=== PATIENT | female | born 1970 | race Caucasian/White ===

== ENCOUNTER 2021-08-01 18:36 | Inpatient (IN) | payer MEDICARE, MEDICAID, SELFPAY ==
--- NOTE | ~2021-08-01 | XR_ITS ---
EXAMINATION: XR ANKLE, LEFT CLINICAL INFORMATION: Ankle pain COMPARISON: None TECHNIQUE: AP, lateral, and mortise views of the left ankle. FINDINGS: No fracture or dislocation. The ankle mortise is intact. There is soft tissue swelling around the lateral aspect of the ankle. Plantar calcaneal spur. Subcutaneous edema. XR/XR ankle LT 2V IMPRESSION: No fracture or dislocation. Soft tissue swelling around the lateral ankle. Subcutaneous edema.
--- NOTE | ~2021-08-01 | XR_ITS ---
EXAMINATION: XR ANKLE, LEFT CLINICAL INFORMATION: Pain COMPARISON: Previous x-ray 08/07/2021 TECHNIQUE: AP, lateral, and mortise views of the left ankle. FINDINGS: Bone alignment is normal. No acute fracture or dislocation is seen. There is slight cortical irregularity of the posterior distal fibular shaft seen on the lateral view questionable for changes related to old trauma. There is a small osteophyte or a tug lesion projecting off the posterior distal tibia seen on the lateral view. The ankle mortise is normal. There are calcaneal spurs. There is lateral soft tissue swelling. XR/XR ankle LT 2V IMPRESSION: No acute fracture or dislocation. Lateral soft tissue swelling.
--- NOTE | 2021-08-01 19:01 | ED.PSYCH ---
HPI - Psych General Chief Complaint: Psychiatric Symptoms Stated Complaint: SI/Crisis Time Seen by Provider: 08/01/21 19:00 Source: patient Mode of arrival: ambulatory Limitations: no limitations History of Present Illness HPI Narrative: 51-year-old female presents to emergency department for suicidal ideations and superficial cutting. States that she was evaluated at [facility] yesterday and was discharged. Feels that her medications are not effective. MD complaint: suicidal ideation and feels depressed Onset (ago): year(s) Duration: constant History of same: Yes Relieving factors: none Context: significant life stressor Associated psychiatric symptoms: depression, suicidal ideation and racing thoughts Associated symptoms: denies other symptoms Treatments prior to arrival: none If self harm: admits thoughts of self harm and self-inflicted trauma Related Data Home Medications Medication Instructions Recorded Confirmed albuterol sulfate 90 mcg/actuation 2 puff INHALATION Q6H PRN 08/01/21 08/01/21 aerosol inhaler ammonium lactate 12 % topical cream 1 appl TOPICAL DAILY 08/01/21 08/01/21 carbamazepine 200 mg 1 tab PO BID 08/01/21 08/01/21 tablet,extended release,12 hr carbamazepine 400 mg 1 tab PO BID 08/01/21 08/01/21 tablet,extended release,12 hr carboxymethylcellulose 0.5 1 drp OPHTHALMIC (EYE) QID PRN 08/01/21 08/01/21 %-glycerin 0.9 % eye drops (Refresh Optive) cetirizine 10 mg tablet 1 tab PO DAILY 08/01/21 08/01/21 clonazepam 0.5 mg tablet 1 tab PO BID PRN 08/01/21 08/01/21 clonidine HCl 0.1 mg tablet 1 tab PO TID 08/01/21 08/01/21 clonidine HCl 0.3 mg tablet 1 tab PO BEDTIME 08/01/21 08/01/21 famotidine 20 mg tablet 1 tab PO DAILY 08/01/21 08/01/21 fluticasone 100 mcg-salmeterol 50 1 puff INHALATION BID 08/01/21 08/01/21 mcg/dose blistr powdr for inhalation (Advair Diskus) gabapentin 400 mg capsule 1 cap PO TID 08/01/21 08/01/21 hydroxyzine pamoate 50 mg capsule 2 cap PO Q8H PRN 08/01/21 08/01/21 lactase 3,000 unit tablet (Lactaid) 3,000 unit PO QID PRN 08/01/21 08/01/21 metformin 500 mg tablet 1 tab PO BID 08/01/21 08/01/21 pantoprazole 40 mg tablet,delayed 1 tab PO BID 08/01/21 08/01/21 release piroxicam 10 mg capsule 1 cap PO DAILY 08/01/21 08/01/21 prazosin 2 mg capsule 2 cap PO BID 08/01/21 08/01/21 trazodone 100 mg tablet 2 tab PO BEDTIME 08/01/21 08/01/21 umeclidinium 62.5 mcg/actuation 1 inh INHALATION DAILY 08/01/21 08/01/21 blister powder for inhalation (Incruse Ellipta) Allergies Allergy/AdvReac Type Severity Reaction Status Date / Time Benzodiazepines Allergy Intermediate Irritable Verified 08/01/21 19:03 diazepam [From Valium] Allergy Intermediate Irritable Verified 08/01/21 19:02 sulfamethoxazole Allergy Intermediate Rash Verified 08/01/21 19:01 [From Bactrim] trimethoprim [From Bactrim] Allergy Intermediate Rash Verified 08/01/21 19:01 Review of Systems Review of Systems: Constitutional: No Fever, No Chills ENT/Mouth: No Ear Pain, No Nasal Congestion, No sore throat Eyes: No Eye Pain, No Swelling, No Redness Cardiovascular: No Chest Pain, No SOB Respiratory: No Cough, No Sputum, No Dyspnea Gastrointestinal: No Nausea, No Vomiting, No Diarrhea, No Hematochezia, No Melena Genitourinary: No Dysuria, No Urinary Frequency, No Hematuria Musculoskeletal: No Myalgias Skin: No Skin Lesions, No rash Neuro: No Weakness, No Numbness, No Paresthesias, No Dizziness, No Headache Psych: positive Anxiety, positive Depression, positive SI Heme/Lymph: No Lymphadenopathy Endocrine: No Polyuria, No Polydipsia Yes all other systems are reviewed and are negative [facility] Past Medical History Attestation statement: The following information was validated with the patient. Source: old records reviewed Social History Social History Advance Directives: No Advance Directives Information Provided: Yes Physical Exam Vital Signs: Vital Signs: Last Vital Signs Temp 98.2 F 08/01/21 22:10 Pulse 85 08/01/21 22:10 Resp 20 08/01/21 22:10 BP 139/81 08/01/21 22:10 Pulse Ox 96 08/01/21 22:10 BMI result Body Mass Index 45.8 Appearance: Alert. Oriented X3. No acute distress. Eyes: Pupils equal, round and reactive to light. Sclera nonicteric. EOMI. ENT: Pharynx normal. Moist mucous membranes. Neck: Normal inspection. Neck supple. CVS: Normal heart rate and rhythm. Pulses normal. Respiratory: No respiratory distress. Breath sounds normal. Abdomen: Soft and nontender. Obese. Skin: Multiple superficial abrasions with razor blade to the right forearm. Skin warm and dry. Normal skin color. Normal skin turgor. Extremities: Gait balance and coordinated with walker. Neuro: No motor deficit. No sensory deficit. Cranial nerves 2-12 intact Course Course Course Narrative: 51-year-old female presents to the emergency department for suicidal ideation. Patient is alert and oriented x4, wheezing and speaking and behaving in a cooperative manner. States that her medications are not working. Was discharged from [facility] yesterday, was treated for her superficial lacerations and abrasions to the right forearm that were self-inflicted with a razor blade. Tdap was updated yesterday. Patient has not presented to this facility there are no medical records at this facility for her. Will obtain records from [facility]. Labs, urinalysis COVID and crisis eval pending. Vaccinated with Pfizer x2 with booster. 9:07 p.m. labs are unremarkable. Medically cleared. Physician observation started at the time. MDM - Psych Differential Diagnosis Differential diagnosis: Likely suicidal ideation, bipolar disorder, depression and mood disorder Medical Records Attestation: I reviewed the patient's medical records. Lab Data Attestation: I reviewed the patient's lab results. Result diagrams: 08/01/21 19:39 08/01/21 19:39 Labs: Lab Results 08/01/21 08/01/21 08/01/21 Range/Units 19:05 19:05 19:05 WBC (4.8-10.8) X10*3/uL RBC (4.20-5.50) X10*6/uL Hgb (12.0-16.0) g/dl Hct (37.0-47.0) % MCV (80.0-98.0) fL MCH (27.0-33.0) pg MCHC (31.0-35.0) g/dl RDW (11.0-16.0) % Plt Count (160-400) X10*3/uL MPV (9.4-12.3) fL Immature Gran % (Auto) (0.0-0.4) % Neut % (Auto) (45-73) % Lymph % (Auto) (20-40) % [place] % (Auto) (2-11) % Eos % (Auto) (0-4) % Baso % (Auto) (0-2) % Lymph # (Auto) (1.2-4.9) X10*3/uL [place] # (Auto) (0.1-1.2) X10*3/uL Eos # (Auto) (0.0-0.4) X10*3/uL Baso # (Auto) (0.0-0.2) X10*3/uL Abs Immat Gran (auto) (0.00-0.03) X10*3/uL Absolute Neuts (auto) (2.0-8.3) x10*3/uL Absolute Nucleated RBC (0.0-0.012) X10*3/uL Nucleated RBC % (auto) (0.0-0.2) /100WBC Sodium (135-145) mmol/L Potassium (3.3-5.1) mmol/L Chloride (96-108) mmol/L Carbon Dioxide (22-29) mmol/L Anion Gap (12-20) BUN (9-16) mg/dL Creatinine (0.5-1.4) mg/dL Estim Creat Clear Calc Estimated GFR Random Glucose (60-115) mg/dL Calcium (8.4-10.2) mg/dL Total Bilirubin (0.0-1.0) mg/dL AST (5-31) U/L ALT (0-31) U/L Alkaline Phosphatase (39-117) U/L Total Protein (6.5-8.0) g/dL Albumin (3.5-5.0) g/dL Urine Color STRAW Urine Appearance CLEAR Urine pH 7.0 (5.0-8.0) Ur Specific [place] 1.020 (1.005-1.025) Urine Protein 1+ H (NEG-TRACE) MG/DL Urine Glucose (UA) NEG (NEG) MG/DL Urine Ketones NEG (NEG) MG/DL Urine Blood TRACE (NEG) Urine Nitrite NEG (NEG) Ur Leukocyte Esterase NEG (NEG) Urine RBC 0-2 (0) /HPF Urine WBC 1-4 (0-4) /HPF Ur Squamous Epith Cells 3+ /LPF Urine Bacteria 1+ /LPF Urine Mucus 1+ /LPF Salicylates (15-30) mg/dL Urine Opiates Screen Not Detected (Not Detect) Urine Fentanyl Screen Not Detected (Not Detect) Acetaminophen (<30) mcg/mL Ur Barbiturates Screen Not Detected (Not Detect) Ur Phencyclidine Scrn Not Detected (Not Detect) Ur Amphetamines Screen Not Detected (Not Detect) U Benzodiazepines Scrn Not Detected (Not Detect) Urine Cocaine Screen Not Detected (Not Detect) U Marijuana (THC) Screen Not Detected (Not Detect) Ethyl Alcohol mg/dL COVID-19 ([facility]) Negative (Negative) COVID-19 Clin Com See Note 08/01/21 08/01/21 08/01/21 Range/Units 19:39 19:39 19:39 WBC 10.9 H (4.8-10.8) X10*3/uL RBC 4.35 (4.20-5.50) X10*6/uL Hgb 10.7 L (12.0-16.0) g/dl Hct 35.5 L (37.0-47.0) % MCV 81.6 (80.0-98.0) fL MCH 24.6 L (27.0-33.0) pg MCHC 30.1 L (31.0-35.0) g/dl RDW 15.8 (11.0-16.0) % Plt Count 268 (160-400) X10*3/uL MPV 9.1 L (9.4-12.3) fL Immature Gran % (Auto) 1.1 H (0.0-0.4) % Neut % (Auto) 71.7 (45-73) % Lymph % (Auto) 17.5 L (20-40) % [place] % (Auto) 7.0 (2-11) % Eos % (Auto) 2.4 (0-4) % Baso % (Auto) 0.3 (0-2) % Lymph # (Auto) 1.9 (1.2-4.9) X10*3/uL [place] # (Auto) 0.8 (0.1-1.2) X10*3/uL Eos # (Auto) 0.3 (0.0-0.4) X10*3/uL Baso # (Auto) 0.0 (0.0-0.2) X10*3/uL Abs Immat Gran (auto) 0.12 H (0.00-0.03) X10*3/uL Absolute Neuts (auto) 7.9 (2.0-8.3) x10*3/uL Absolute Nucleated RBC 0.000 (0.0-0.012) X10*3/uL Nucleated RBC % (auto) 0.0 (0.0-0.2) /100WBC Sodium 138 (135-145) mmol/L Potassium 4.1 (3.3-5.1) mmol/L Chloride 104 (96-108) mmol/L Carbon Dioxide 28 (22-29) mmol/L Anion Gap 10 L (12-20) BUN 14 (9-16) mg/dL Creatinine 0.71 (0.5-1.4) mg/dL Estim Creat Clear Calc 113.1 Estimated GFR > 60 Random Glucose 132 H (60-115) mg/dL Calcium 9.5 (8.4-10.2) mg/dL Total Bilirubin 0.3 (0.0-1.0) mg/dL AST 20 (5-31) U/L ALT 22 (0-31) U/L Alkaline Phosphatase 126 H (39-117) U/L Total Protein 7.4 (6.5-8.0) g/dL Albumin 4.1 (3.5-5.0) g/dL Urine Color Urine Appearance Urine pH (5.0-8.0) Ur Specific [place] (1.005-1.025) Urine Protein (NEG-TRACE) MG/DL Urine Glucose (UA) (NEG) MG/DL Urine Ketones (NEG) MG/DL Urine Blood (NEG) Urine Nitrite (NEG) Ur Leukocyte Esterase (NEG) Urine RBC (0) /HPF Urine WBC (0-4) /HPF Ur Squamous Epith Cells /LPF Urine Bacteria /LPF Urine Mucus /LPF Salicylates < 5.0 L (15-30) mg/dL Urine Opiates Screen (Not Detect) Urine Fentanyl Screen (Not Detect) Acetaminophen < 1 (<30) mcg/mL Ur Barbiturates Screen (Not Detect) Ur Phencyclidine Scrn (Not Detect) Ur Amphetamines Screen (Not Detect) U Benzodiazepines Scrn (Not Detect) Urine Cocaine Screen (Not Detect) U Marijuana (THC) Screen (Not Detect) Ethyl Alcohol < 10 mg/dL COVID-19 ([facility]) (Negative) COVID-19 Clin Com Discharge Plan Discharge Clinical Impression: Suicidal ideation Bipolar disorder Qualifiers: Active/Remission status: currently active Current bipolar episode type: depressed Current episode severity: moderate Qualified Code(s): F31.32 - Bipolar disorder, current episode depressed, moderate Depression Qualifiers: Depression Type: major depressive disorder Major depression recurrence: recurrent Active/Remission status: currently active Major depression episode severity: moderate Qualified Code(s): F33.1 - Major depressive disorder, recurrent, moderate Patient Disposition: Still a Patient Prescriptions: No Action gabapentin 400 mg capsule 1 cap PO TID RF: 0 fluticasone propion-salmeterol [Advair Diskus] 100-50 mcg/dose blister with device 1 puff inhalation BID RF: 0 cetirizine 10 mg tablet 1 tab PO DAILY RF: 0 piroxicam 10 mg capsule 1 cap PO DAILY RF: 0 famotidine 20 mg tablet 1 tab PO DAILY RF: 0 clonazepam 0.5 mg tablet 1 tab PO BID PRN (Reason: Anxiety) RF: 0 clonidine HCl 0.1 mg tablet 1 tab PO TID RF: 0 prazosin 2 mg capsule 2 cap PO BID RF: 0 trazodone 100 mg tablet 2 tab PO BEDTIME RF: 0 hydroxyzine pamoate 50 mg capsule 2 cap PO Q8H PRN (Reason: Anxiety) RF: 0 metformin 500 mg tablet 1 tab PO BID RF: 0 pantoprazole 40 mg tablet,delayed release (DR/EC) 1 tab PO BID RF: 0 clonidine HCl 0.3 mg tablet 1 tab PO BEDTIME RF: 0 carbamazepine 400 mg tablet extended release 12 hr 1 tab PO BID RF: 0 carbamazepine 200 mg tablet extended release 12 hr 1 tab PO BID RF: 0 lactase [Lactaid] 3,000 unit Tablet 3,000 unit PO QID PRN (Reason: Lactose Intolerance) RF: 0 ammonium lactate 12 % Cream 1 appl TOPICAL DAILY RF: 0 albuterol sulfate 90 mcg/actuation Hfa Aerosol Inhaler 2 puff INHALATION Q6H PRN (Reason: Wheezing) RF: 0 Refresh Optive 0.5-0.9 % Drops 1 drp OPHTHALMIC (EYE) QID PRN (Reason: Dry Eye(S)) RF: 0 Incruse Ellipta 62.5 mcg/actuation Blister With Device 1 inh INHALATION DAILY RF: 0
[2021-08-01 19:04] VITALS: BP 155/81; PULSE 92; RESP 18; TEMP 36.7; O2SAT 97; BMI 45.8
[2021-08-01 19:25] LABS: COVID-19 Test Negative (Negative); IDNOW Serial# 9DD0AD1C
[2021-08-01 19:27] LABS: Amphetamine Screen Urine Not Detected (Not Detect); Barbiturates, Urine Not Detected (Not Detect); Benzodiazepines Screen Urine Not Detected (Not Detect); Cannabinoid Screen Urine Not Detected (Not Detect); Cocaine Screen Urine Not Detected (Not Detect); Fentanyl, urine Not Detected (Not Detect); Opiate Screen Urine Not Detected (Not Detect); Phencyclidine Screen Urine Not Detected (Not Detect)
[2021-08-01 19:45] LABS: Basophils Percent Auto 0.3 % (0-2); Eosinophils Absolute Auto 0.3 X10*3/uL (0.0-0.4); Eosinophils Percent Auto 2.4 % (0-4); Hematocrit 35.5 % (37.0-47.0); Hemoglobin 10.7 g/dl (12.0-16.0); Imm Gran Abs Auto 0.12 X10*3/uL (0.00-0.03); Imm Gran Pct Auto 1.1 % (0.0-0.4); Lymphocytes Absolute Auto 1.9 X10*3/uL (1.2-4.9); Lymphocytes Percent Auto 17.5 % (20-40); MANUAL DIFF FLAG NO; Mean Corpuscular HGB Conc 30.1 g/dl (31.0-35.0); Mean Corpuscular Hemoglobin 24.6 pg (27.0-33.0); Mean Corpuscular Volume 81.6 fL (80.0-98.0); Mean Platelet Volume 9.1 fL (9.4-12.3); Monocytes Absolute Auto 0.8 X10*3/uL (0.1-1.2); Neutrophils Absolute Auto 7.9 x10*3/uL (2.0-8.3); Neutrophils Percent Auto 71.7 % (45-73); Platelet Count 268 X10*3/uL (160-400); Red Blood Count 4.35 X10*6/uL (4.20-5.50); Red Cell Distribution Width 15.8 % (11.0-16.0); White Blood Count 10.9 X10*3/uL (4.8-10.8)
[2021-08-01 20:01] LABS: Ethanol < 10 mg/dL
[2021-08-01 20:05] LABS: Alanine Aminotransferase 22 U/L (0-31); Albumin Level 4.1 g/dL (3.5-5.0); Alkaline Phosphatase 126 U/L (39-117); Anion Gap 10 (12-20); Aspartate Amino Transferase 20 U/L (5-31); Bilirubin Total 0.3 mg/dL (0.0-1.0); Blood Urea Nitrogen 14 mg/dL (9-16); Calcium 9.5 mg/dL (8.4-10.2); Carbon Dioxide 28 mmol/L (22-29); Chloride 104 mmol/L (96-108); Creatinine Clr Calc Pharmacy 113.1; Estimated Glomerular Filt Rate > 60; Glucose Random 132 mg/dL (60-115); Potassium 4.1 mmol/L (3.3-5.1); Salicylate < 5.0 mg/dL (15-30); Sodium 138 mmol/L (135-145); Total Protein 7.4 g/dL (6.5-8.0)
[2021-08-01 20:08] LABS: Acetaminophen LAB < 1 mcg/mL (<30)
[2021-08-01 20:12] LABS: Appearance Urine CLEAR; Color Urine STRAW; Glucose Urine UA NEG (NEG); Leukocyte Esterase Urine NEG (NEG); Nitrite Urine NEG (NEG); UACC Culture Trigger NO; Urine Blood TRACE (NEG); Urine Ketones NEG (NEG); Urine Protein 1+ MG/DL (NEG-TRACE)
--- NOTE | 2021-08-01 20:17 | PHA.MEDREC ---
Pharmacy Consult ? Medication Reconciliation Pharmacy has completed the medication reconciliation. Pt seemed confused but did name off a lot of the medications that I pulled from her fill history on her own. No remarkable issues. Hortencia James [facility]
[2021-08-01 20:19] LABS: Bacteria Urine 1+ /LPF; Mucus Urine 1+ /LPF; Squamous Epithelial Cell Urine 3+ /LPF
[2021-08-01 20:20] LABS: RBC Urine 0-2 /HPF (0)
[2021-08-01] MEDS: Prazosin HCL 1 MG CAPSULE 4 MG PO (22:09)
[2021-08-01 22:10] VITALS: BP 139/81; PULSE 85; RESP 20; TEMP 36.8; O2SAT 96
[2021-08-01] MEDS: traZODone HCL 100 MG TABLET 200 MG PO (22:10)
[2021-08-01] MEDS: cloNIDine HCL 0.1 MG TABLET PO (22:10)
[2021-08-01] MEDS: carBAMazepine ER 200 MG TAB.ER.12H PO (22:10)
[2021-08-01] MEDS: metFORMIN HCl 500 MG TABLET PO (22:11)
[2021-08-01] MEDS: cloNIDine HCL 0.1 MG TABLET 0.3 MG PO (22:11)
[2021-08-01] MEDS: Gabapentin 400 MG CAPSULE PO (22:11)
[2021-08-02 00:17] VITALS: BP 103/67; PULSE 93; RESP 16; TEMP 36.2; O2SAT 95
[2021-08-02] MEDS: clonazePAM 0.5 MG TABLET PO (00:34)
--- NOTE | 2021-08-02 05:47 | PC.NURSE ---
Patient slept most part of the night, OOR few times for bathroom use and other need, no distress observed/reported, N referral completed/confirmed, patient will be evaluated in the morning, behavior cooperative and non concerning at this time, medication compliant, will continue to monitor.
[2021-08-02] MEDS: Omeprazole 20 MG CAPSULE.DR PO ×2 (06:13→16:19)
--- NOTE | 2021-08-02 07:21 | PC.NURSE ---
patient appears to remain asleep at present, respirations are even and unlabored patient appears in no distress
[2021-08-02 08:04] LABS: Glucose, Whole Blood 114 mg/dL (60-115)
[2021-08-02] MEDS: Famotidine 20 MG TABLET PO (08:50)
[2021-08-02] MEDS: metFORMIN HCl 500 MG TABLET PO ×2 (08:50→16:18)
[2021-08-02] MEDS: Loratadine 10 MG TABLET PO (08:50)
[2021-08-02] MEDS: cloNIDine HCL 0.1 MG TABLET PO ×2 (08:50→14:10)
[2021-08-02] MEDS: carBAMazepine ER 200 MG TAB.ER.12H 400 MG PO ×2 (08:51→23:45)
[2021-08-02] MEDS: carBAMazepine ER 200 MG TAB.ER.12H PO ×2 (08:51→23:44)
[2021-08-02] MEDS: Prazosin HCL 1 MG CAPSULE 4 MG PO ×2 (08:51→23:42)
[2021-08-02] MEDS: Gabapentin 400 MG CAPSULE PO ×3 (08:51→23:42)
--- NOTE | 2021-08-02 09:43 | HE.PHANOTE ---
Patient believes someone will be able to bring in Piroxicam and Incruse. Will start contacting people once it is determined if she is stay or going to be discharged per Reina. Yara Fernandez, PharmD
--- NOTE | 2021-08-02 12:18 | ECG_ITS ---
Test Reason : medical clearance Blood Pressure : / mmHG Vent. Rate : 072 BPM Atrial Rate : 072 BPM P-R Int : 184 ms QRS Dur : 082 ms QT Int : 428 ms P-R-T Axes : 019 -08 024 degrees QTc Int : 468 ms Normal sinus rhythm Possible Anterior infarct , age undetermined ; could be related to body habitus and lead placement Abnormal ECG No previous ECGs available Referred By: Soo López Electronically Signed By:MILAN GILES
[2021-08-02] MEDS: Calcium Carbonate 750 MG TAB.CHEW 1000 MG PO (12:40)
[2021-08-02 13:13] LABS: COVID-19 Test Negative (Negative); IDNOW Serial# 9DD0AD1C
[2021-08-02 14:07] VITALS: BP 148/88; PULSE 82; RESP 18; TEMP 36.4; O2SAT 96
[2021-08-02 15:37] VITALS: BP 109/85; PULSE 98; TEMP 36.4; O2SAT 99
[2021-08-02 21:25] VITALS: BP 139/91; PULSE 98; TEMP 36.5; O2SAT 97
[2021-08-02 23:30] VITALS: BP 128/91; PULSE 95; O2SAT 98
[2021-08-02] MEDS: traZODone HCL 100 MG TABLET 200 MG PO (23:42)
[2021-08-02] MEDS: cloNIDine HCL 0.1 MG TABLET 0.3 MG PO (23:43)
[2021-08-02] MEDS: traZODone HCL 50 MG TABLET PO (23:59)
[2021-08-02] MEDS: hydrOXYzine HCL 50 MG TABLET 100 MG PO (23:59)
[2021-08-03 00:20] LABS: Glucose, Whole Blood 100 mg/dL (60-115)
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
[2021-08-03] MEDS: Omeprazole 20 MG CAPSULE.DR PO ×2 (06:08→18:08)
[2021-08-03 08:00] VITALS: BP 130/67; PULSE 85; TEMP 36.8; O2SAT 95
[2021-08-03 08:12] LABS: Glucose, Whole Blood 105 mg/dL (60-115)
[2021-08-03] MEDS: Artificial Tears 15 ML DROPS 1 DROP EYE-BOTH (08:26)
[2021-08-03] MEDS: Fluticasone/Vilanterol 100/25 BLST.W.DEV 1 PUFF INHALE (08:26)
[2021-08-03] MEDS: Loratadine 10 MG TABLET PO (08:27)
[2021-08-03] MEDS: Gabapentin 400 MG CAPSULE PO ×2 (08:27→14:53)
[2021-08-03] MEDS: cloNIDine HCL 0.1 MG TABLET PO ×3 (08:27→20:56)
[2021-08-03] MEDS: carBAMazepine ER 200 MG TAB.ER.12H 400 MG PO (08:27)
[2021-08-03] MEDS: metFORMIN HCl 500 MG TABLET PO ×2 (08:27→18:08)
[2021-08-03] MEDS: hydrOXYzine HCL 50 MG TABLET 100 MG PO (08:27)
[2021-08-03] MEDS: carBAMazepine ER 200 MG TAB.ER.12H PO (08:27)
[2021-08-03] MEDS: Famotidine 20 MG TABLET PO (08:28)
[2021-08-03] MEDS: Prazosin HCL 1 MG CAPSULE 4 MG PO ×2 (09:50→20:54)
[2021-08-03] MEDS: Calcium Carbonate 750 MG TAB.CHEW PO (13:39)
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
[2021-08-03] MEDS: Magnesium Hydrox/Alum Hydrox 30 ML ORAL.SUSP PO (14:53)
[2021-08-03 16:01] LABS: Glucose, Whole Blood 109 mg/dL (60-115)
--- NOTE | 2021-08-03 16:04 | PC.NURSE ---
Pt reports feeling really out of it and shaky. Pt's extremities were visibly shaking and pt stated I just feel really nauseous. This RN assessed vitals: BP 124/87, HR 98 (automated and manually), RR 18, SpO2 98% room air, POC Blood glucose 109. Skin dry and warm to touch. Pt reports my anxiety is through the roof but she doesn't want to take any PRN medications because I don't think they're helping me, I don't want to put any more pills in my body right now. Pt requested to be evaluated by hospitalist. lRelayed info to Dr. Gallegos who is aware.
--- NOTE | 2021-08-03 17:24 | ECG_ITS ---
Test Reason : chest pain Blood Pressure : / mmHG Vent. Rate : 084 BPM Atrial Rate : 084 BPM P-R Int : 166 ms QRS Dur : 088 ms QT Int : 390 ms P-R-T Axes : 025 -15 036 degrees QTc Int : 460 ms Normal sinus rhythm Possible Anterior infarct , age undetermined Abnormal ECG No significant changes when compared with the previous EKG of 02 aug 2021 Referred By: Luke Gallegos Electronically Signed By:MILAN GILES
[2021-08-03 18:00] VITALS: BP 124/77; PULSE 101; TEMP 36.7; O2SAT 98
[2021-08-03] MEDS: clonazePAM 0.5 MG TABLET PO (18:08)
[2021-08-03] MEDS: Lactase TABLET 1 TAB PO (18:09)
[2021-08-03] MEDS: Bacitracin Oint 14 GM TUBE 1 APPL TOPICAL (20:54)
[2021-08-03] MEDS: carBAMazepine ER 200 MG TAB.ER.12H 800 MG PO (20:55)
[2021-08-03] MEDS: Gabapentin 300 MG CAPSULE 600 MG PO (20:55)
[2021-08-03] MEDS: traZODone HCL 100 MG TABLET 200 MG PO (20:55)
[2021-08-03] MEDS: Ibuprofen 200 MG TABLET PO (20:56)
[2021-08-03] MEDS: cloNIDine HCL 0.1 MG TABLET 0.3 MG PO (20:56)
[2021-08-03] MEDS: Clotrimazole 1 % Cream 15 GM TUBE 1 APPL TOPICAL (21:46)
[2021-08-04] MEDS: hydrOXYzine HCL 50 MG TABLET 100 MG PO ×2 (01:17→16:51)
[2021-08-04] MEDS: clonazePAM 0.5 MG TABLET PO (04:52)
[2021-08-04 08:28] VITALS: BP 123/79; PULSE 80; RESP 17; TEMP 36.2; O2SAT 96
[2021-08-04] MEDS: Omeprazole 20 MG CAPSULE.DR PO ×2 (08:35→16:50)
[2021-08-04] MEDS: cloNIDine HCL 0.1 MG TABLET PO ×2 (08:36→15:35)
[2021-08-04] MEDS: Cholecalciferol (Vitamin D3) 25 MCG TABLET PO (08:36)
[2021-08-04] MEDS: Loratadine 10 MG TABLET PO (08:36)
[2021-08-04] MEDS: Gabapentin 300 MG CAPSULE 600 MG PO ×3 (08:37→22:19)
[2021-08-04] MEDS: Famotidine 20 MG TABLET PO (08:37)
[2021-08-04] MEDS: carBAMazepine ER 200 MG TAB.ER.12H 600 MG PO (08:37)
[2021-08-04] MEDS: Prazosin HCL 1 MG CAPSULE 4 MG PO ×2 (08:38→22:20)
[2021-08-04] MEDS: Multivitamin TABLET 1 TAB PO (08:39)
[2021-08-04] MEDS: Ibuprofen 200 MG TABLET PO (08:39)
[2021-08-04] MEDS: metFORMIN HCl 500 MG TABLET PO ×2 (08:39→16:51)
[2021-08-04] MEDS: Fluticasone/Vilanterol 100/25 BLST.W.DEV 1 PUFF INHALE (08:41)
[2021-08-04] MEDS: Lactase TABLET 1 TAB PO ×4 (08:48→22:20)
[2021-08-04 08:59] LABS: Glucose, Whole Blood 106 mg/dL (60-115)
[2021-08-04] MEDS: Calcium Carbonate 750 MG TAB.CHEW PO ×2 (09:38→18:05)
--- NOTE | 2021-08-04 11:03 | MHC.CLN ---
NUTRITION CONSULT CONSULT FOR PATIENT REQUESTING ENSURE. REPORTS NAUSEA WITH FOOD BUT NOT WITH ENSURE. ADDING ENSURE BID TO PROVIDE 700 KCAL, 26 G PROTEIN. BMI=45.9, MORBID OBESITY. HAS DX DM BUT NOT TAKING DM MEDS. RANDOM AAKKHYL=[id number] ON 08/01. POC GLUCOSE WITHIN NORMAL LIMITS 08/02 TO 08/04. RECOMMEND DISCONTINUE ENSURE IF PO INTAKE IMPROVES.
[2021-08-04] MEDS: Lidocaine 4 % Patch ADH..PATCH 1 PATCH TRANSDERMA ×2 (11:27)
--- NOTE | 2021-08-04 11:36 | HO.PSYCHPN ---
Subjective Subjective Date of Service: 08/04/21 Reason For Visit: Mood Disorder Interim History: pt reports she has been having diarrhea, not feeling herself. also concerned that her tegretol level was too low; MD mentions her dosing was increased last evening. she seems reassured. she requests MD call her mother and states she has signed a OMER. in addition, she supports MD calling [facility] for Hx. MD spoke with both pt's mother and [facility] staff to request records. no other changes to regimen made. per staff, pt asking for various order changes, which were accommodated. endorsing SIBI without intent or plan. anxious and depressed. visible in milieu. social. watching TV. Mental Status Exam Mental Status Exam Narrative: appropriately dressed and groomed. cooperative. no PMA/PMR. speech nml rate, amount, loudness, tone, latency. thoughts linear and logical. affect constricted, normo-intense, non-labile, consistent with context. mood anxious and depressed. no SI/HI/AVH expressed. SIBI without intent or plan. Diagnostics Vital Signs (24Hr): Vital Signs - 24 hr 08/03/21 18:00 08/04/21 08:28 Temperature 98.1 F 97.2 F Pulse Rate 101 H 80 Respiratory Rate 17 Blood Pressure 124/77 123/79 Pulse Oximetry 98 96 BMI result Body Mass Index 45.8 Labs Results: 08/01/21 19:39 08/01/21 19:39 Labs: Laboratory Results - last 48 hr 08/02/21 08/02/21 08/03/21 12:49 23:35 08:07 POC Glucose 100 105 COVID-19 ([facility]) Negative COVID-19 Clin Com See Note 08/03/21 08/04/21 15:55 08:57 POC Glucose 109 106 COVID-19 ([facility]) COVID-19 Clin Com Medications Medications Current Medications Acetaminophen (Acetaminophen 325 Mg Tablet) 650 mg PO Q6H PRN PRN Reason: Headache/Pain Mild Scale (1-3) Al Hydroxide/Mg Hydroxide (Magnesium Hydrox/Alum Hydrox 30 Ml Oral.Susp) 30 ml PO Q6H PRN PRN Reason: Heartburn/Nausea Last Admin: 08/03/21 14:53 Dose: 30 ml Documented by: Albuterol Sulfate (Albuterol Sulfate 90 Mcg 8 Gm Inhaler) 2 puff INHALE Q6H PRN PRN Reason: Wheezing Artificial Tears (Artificial Tears 15 Ml Drops) 1 drop EYE-BOTH QID PRN PRN Reason: Dry Eye(S) Last Admin: 08/03/21 08:26 Dose: 1 drop Documented by: Bacitracin (Bacitracin Oint 14 Gm Tube) 1 appl TOPICAL BID [facility]; Protocol Last Admin: 08/04/21 10:12 Dose: Not Given Documented by: Calcium Carbonate (Calcium Carbonate 750 Mg Tab.Chew) 750 mg PO Q6H PRN PRN Reason: Heartburn Last Admin: 08/04/21 09:38 Dose: 750 mg Documented by: Carbamazepine (Carbamazepine Er 200 Mg Tab.Er.12h) 600 mg PO DAILY [facility] Last Admin: 08/04/21 08:37 Dose: 600 mg Documented by: Carbamazepine (Carbamazepine Er 200 Mg Tab.Er.12h) 800 mg PO BEDTIME [facility] Last Admin: 08/03/21 20:55 Dose: 800 mg Documented by: Clonazepam (Clonazepam 0.5 Mg Tablet) 0.5 mg PO BID PRN PRN Reason: Anxiety Last Admin: 08/04/21 04:52 Dose: 0.5 mg Documented by: Clonidine HCl (Clonidine Hcl 0.1 Mg Tablet) 0.1 mg PO TID [facility]; Protocol Last Admin: 08/04/21 08:36 Dose: 0.1 mg Documented by: Clonidine HCl (Clonidine Hcl 0.1 Mg Tablet) 0.3 mg PO BEDTIME [facility]; Protocol Last Admin: 08/03/21 20:56 Dose: 0.3 mg Documented by: Clotrimazole (Clotrimazole 1 % Cream 15 Gm Tube) 1 appl TOPICAL BEDTIME [facility]; Protocol Last Admin: 08/03/21 21:46 Dose: 1 appl Documented by: Famotidine (Famotidine 20 Mg Tablet) 20 mg PO DAILY [facility] Last Admin: 08/04/21 08:37 Dose: 20 mg Documented by: Fluticasone/Vilanterol (Fluticasone/Vilanterol 100/25 Blst.W.Dev) 1 puff INHALE RDAILY [facility] Last Admin: 08/04/21 08:41 Dose: 1 puff Documented by: Gabapentin (Gabapentin 300 Mg Capsule) 600 mg PO TID [facility] Last Admin: 08/04/21 08:37 Dose: 600 mg Documented by: Hydroxyzine HCl (Hydroxyzine Hcl 50 Mg Tablet) 100 mg PO Q8H PRN PRN Reason: Anxiety Last Admin: 08/04/21 01:17 Dose: 100 mg Documented by: Ibuprofen (Ibuprofen 200 Mg Tablet) 200 mg PO BID [facility] Last Admin: 08/04/21 08:39 Dose: 200 mg Documented by: Lactase (Lactase Tablet) 1 tab PO QID [facility] Lactic Acid (Ammonium Lactate 12 % Cream 140 Gm Tube) 1 appl TOPICAL DAILY [facility]; Protocol Last Admin: 08/04/21 10:11 Dose: Not Given Documented by: Lidocaine (Lidocaine 4 % Patch Adh..Patch) 1 patch TRANSDERMA DAILY [facility]; Protocol Last Admin: 08/04/21 11:27 Dose: 1 patch Documented by: Lidocaine (Lidocaine 4 % Patch Adh..Patch) 1 patch TRANSDERMA DAILY [facility]; Protocol Last Admin: 08/04/21 11:27 Dose: 1 patch Documented by: Loperamide HCl (Loperamide Hcl 2 Mg Capsule) 2 mg PO Q4H PRN PRN Reason: Diarrhea Loratadine (Loratadine 10 Mg Tablet) 10 mg PO DAILY [facility] Last Admin: 08/04/21 08:36 Dose: 10 mg Documented by: Magnesium Hydroxide (Milk Of Magnesia 30 Ml Oral.Susp) 30 ml PO DAILY PRN PRN Reason: Constipation Metformin HCl (Metformin Hcl 500 Mg Tablet) 500 mg PO BIDWM [facility] Last Admin: 08/04/21 08:39 Dose: 500 mg Documented by: Multivitamins/Vitamin C (Multivitamin Tablet) 1 tab PO DAILY [facility] Last Admin: 08/04/21 08:39 Dose: 1 tab Documented by: Non-Formulary Medication (Piroxicam) 1 cap PO DAILY [facility] Non-Formulary Medication (Umeclidinium [Incruse Ellipta]) 1 inhalation INHALE DAILY [facility] Omeprazole (Omeprazole 20 Mg Capsule.Dr) 20 mg PO BID@0630,1630 [facility] Last Admin: 08/04/21 08:35 Dose: 20 mg Documented by: Prazosin HCl (Prazosin Hcl 1 Mg Capsule) 4 mg PO BID [facility]; Protocol Last Admin: 08/04/21 08:38 Dose: 4 mg Documented by: Trazodone HCl (Trazodone Hcl 100 Mg Tablet) 200 mg PO BEDTIME [facility] Last Admin: 08/03/21 20:55 Dose: 200 mg Documented by: Trolamine Salicylate/Aloe Vera (Trolamine Salicylate 10%/Aloe Cream 35.4 Gm) 1 appl TOPICAL QID [facility] Last Admin: 08/04/21 10:12 Dose: Not Given Documented by: Vitamin D (Cholecalciferol (Vitamin D3) 25 Mcg Tablet) 25 mcg PO DAILY [facility] Last Admin: 08/04/21 08:36 Dose: 25 mcg Documented by: Allergies Allergies Allergy/AdvReac Type Severity Reaction Status Date / Time Benzodiazepines Allergy Intermediate Irritable Verified 08/01/21 19:03 diazepam [From Valium] Allergy Intermediate Irritable Verified 08/01/21 19:02 sulfamethoxazole Allergy Intermediate Rash Verified 08/01/21 19:01 [From Bactrim] trimethoprim [From Bactrim] Allergy Intermediate Rash Verified 08/01/21 19:01 Assessment & Plan Assessment & Plan (1) Depression: Qualifiers: Active/Remission status: currently active Depression Type: major depressive disorder Major depression episode severity: moderate Major depression recurrence: recurrent Qualified Code(s): F33.1 - Major depressive disorder, recurrent, moderate Status: Acute Code(s): F32.A - Depression, unspecified Assessment and Plan: continue current regimen (2) Suicidal ideation: Status: Acute Code(s): R45.851 - Suicidal ideations Assessment and Plan: resolved (3) Diabetes mellitus, type 2: Status: Acute Code(s): E11.9 - Type 2 diabetes mellitus without complications Assessment and Plan: continue current regimen. collect data. (4) Sleep apnea: Status: Acute Code(s): G47.30 - Sleep apnea, unspecified Assessment and Plan: CPAP while sleeping. Assessment and Plan: admit to M3, keep safe. continue outpt regimen. collect collateral from outpt providers. message left for Dr. Morris @[facility] [phone]. contact with [employer] [facility] staff 08/04, they will fax info. collateral collected from pt's mother 08/04 (supports narrative above re destabilization upon return from vacation, need for higher tegretol level. added pt recently feeling guilty about dietary indiscretion and misusing a credit card her mother had obtained for her). tegretol dosing increased from 600 BID at admission to 600/800. check level after about 5 days. I spent minutes with the patient and/or on the patient floor today, greater than?50% of which was spent counseling/coordinating care. Reason for contiued inpatient stay Substantial Risk for: harm to self
--- NOTE | 2021-08-04 14:47 | P.EN_ITS ---
Event Note Date of Service: 08/04/21 Event Note: Called to rapid response. Patient found lying on the ground. Patient witnessed to have adverse response to loud noise followed by seizure like activity. Patient responsive to verbal stimuli on arrival, no confusion or post- ictal period noted. She was helped up to chair and noted be hyperventilating. She was encouraged to breathe with deep slow breaths and offered to breath into a paper bag. She responded well and her breathing returned to normal. She requested to return to her bed to rest and was assisted to her room. 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
[2021-08-04 15:21] LABS: COVID-19 Test Negative (Negative)
--- NOTE | 2021-08-04 16:57 | PC.NURSE ---
At approximately 14:30 this RN heard a scream of help she is seizing coming from the group where a geriatric social work professor was hosting a group with multiple patients. This RN instructed the medical secretary to call a Rapid response. Upon entering the room patient was observed on the floor with geriatric social work professor supporting the patient on her side. MD arrived and assessed the patient where patient disclosed having pseudo seizures.Vital signs were stable and within normal limits. Patient was escorted back to her room where she remained and nap for a few hours later.
[2021-08-04] MEDS: Bacitracin Oint 14 GM TUBE 1 APPL TOPICAL ×2 (17:29→21:11)
[2021-08-04 21:10] LABS: Glucose, Whole Blood 115 mg/dL (60-115)
[2021-08-04] MEDS: Clotrimazole 1 % Cream 15 GM TUBE 1 APPL TOPICAL (21:11)
[2021-08-04] MEDS: Artificial Tears 15 ML DROPS 1 DROP EYE-BOTH (21:22)
[2021-08-04 22:16] VITALS: BP 129/71; PULSE 91; TEMP 36.8; O2SAT 98
[2021-08-04] MEDS: cloNIDine HCL 0.1 MG TABLET 0.3 MG PO (22:18)
[2021-08-04] MEDS: traZODone HCL 100 MG TABLET 200 MG PO (22:19)
[2021-08-04] MEDS: carBAMazepine ER 200 MG TAB.ER.12H 800 MG PO (22:19)
[2021-08-05] MEDS: hydrOXYzine HCL 50 MG TABLET 100 MG PO ×2 (02:42→11:17)
[2021-08-05 08:00] VITALS: BP 123/74; PULSE 85; TEMP 36.6; O2SAT 95
--- NOTE | 2021-08-05 08:00 | P.PNPSI_ITS ---
Subjective Subjective Date of Service: 08/05/21 Reason For Visit: Mood Disorder Subjective Notes: Conditional Voluntary Interim History: Patient was seen and discussed in rounds. Records, labs and treatment plan reviewed. She has been pleasant and interactive and in the milieu. She continues to be very somatically preoccupied. Yesterday she had an episode pseudoseizures. Sleeping okay. Med compliant. She had numerous questions about her medications which we discussed. Her Tegretol has recently been raised but I did not see new level. No acute concerns. No changes were made. Occasion no SI but denies any plans or danger. Current medications were detained with no changes Side effects from medications: No Attending Groups: Yes Review of Systems Acute medical concerns: No Medical Review of Systems: unchanged Review of Systems Review of Systems Constitutional: No Fever, No Chills ENT/Mouth: No Ear Pain, No Nasal Congestion, No sore throat Eyes: No Eye Pain, No Swelling, No Redness Cardiovascular: No Chest Pain, No SOB Respiratory: No Cough, No Sputum, No Dyspnea Gastrointestinal: No Nausea, No Vomiting, No Diarrhea, No Hematochezia, No Me grayson Genitourinary: No Dysuria, No Urinary Frequency, No Hematuria Musculoskeletal: No Myalgias Skin: No Skin Lesions, No rash Neuro: No Weakness, No Numbness, No Paresthesias, No Dizziness, No Headache Psych: positive Anxiety, positive Depression, positive SI Heme/Lymph: No Lymphadenopathy Endocrine: No Polyuria, No Polydipsia Yes all other systems are reviewed and are negative Mental Status Exam Mental Status Exam Narrative: In today's visit she is alert, oriented and pleasant. She remembered me from having seen her 1 time of service not. Speech is normal. Good eye contact. Affect is appropriate and constricted. No acute signs observed. She denies any active suicidal or homicidal ideations. No psychotic symptoms observed. Cognitively intact. Judgment and Diagnostics Vital Signs (24Hr): Vital Signs - 24 hr 08/04/21 08:28 08/04/21 22:16 Temperature 97.2 F 98.2 F Pulse Rate 80 91 Respiratory Rate 17 Blood Pressure 123/79 129/71 Pulse Oximetry 96 98 BMI result Body Mass Index 45.8 Labs Results: 08/01/21 19:39 08/01/21 19:39 Labs: Laboratory Results - last 48 hr 08/03/21 08/03/2108/04/22 08:07 15:55 08:57 POC Glucose 105 109 106 COVID-19 ([facility]) COVID-19 Clin Com 08/04/21 08/04/21 14:54 21:05 POC Glucose 115 COVID-19 ([facility]) Negative COVID-19 Clin Com See Note Medications Medications Current Medications Acetaminophen (Acetaminophen 325 Mg Tablet) 650 mg PO Q6H PRN PRN Reason: Headache/Pain Mild Scale (1-3) Al Hydroxide/Mg Hydroxide (Magnesium Hydrox/Alum Hydrox 30 Ml Oral.Susp) 30 ml PO Q6H PRN PRN Reason: Heartburn/Nausea Last Admin: 08/03/21 14:53 Dose: 30 ml Documented by: Albuterol Sulfate (Albuterol Sulfate 90 Mcg 8 Gm Inhaler) 2 puff INHALE Q6H PRN PRN Reason: Wheezing Artificial Tears (Artificial Tears 15 Ml Drops) 1 drop EYE-BOTH QID PRN PRN Reason: Dry Eye(S) Last Admin: 08/04/21 21:22 Dose: 1 drop Documented by: Bacitracin (Bacitracin Oint 14 Gm Tube) 1 appl TOPICAL BID [facility]; Protocol Last Admin: 08/04/21 21:11 Dose: 1 appl Documented by: Calcium Carbonate (Calcium Carbonate 750 Mg Tab.Chew) 750 mg PO Q6H PRN PRN Reason: Heartburn Last Admin: 08/04/21 18:05 Dose: 750 mg Documented by: Carbamazepine (Carbamazepine Er 200 Mg Tab.Er.12h) 600 mg PO DAILY [facility] Last Admin: 08/04/21 08:37 Dose: 600 mg Documented by: Carbamazepine (Carbamazepine Er 200 Mg Tab.Er.12h) 800 mg PO BEDTIME [facility] Last Admin: 08/04/21 22:19 Dose: 800 mg Documented by: Clonazepam (Clonazepam 0.5 Mg Tablet) 0.5 mg PO BID PRN PRN Reason: Anxiety Last Admin: 08/04/21 04:52 Dose: 0.5 mg Documented by: Clonidine HCl (Clonidine Hcl 0.1 Mg Tablet) 0.1 mg PO TID [facility]; Protocol Last Admin: 08/04/21 22:21 Dose: Not Given Documented by: Clonidine HCl (Clonidine Hcl 0.1 Mg Tablet) 0.3 mg PO BEDTIME [facility]; Protocol Last Admin: 08/04/21 22:18 Dose: 0.3 mg Documented by: Clotrimazole (Clotrimazole 1 % Cream 15 Gm Tube) 1 appl TOPICAL BEDTIME [facility]; Protocol Last Admin: 08/04/21 21:11 Dose: 1 appl Documented by: Famotidine (Famotidine 20 Mg Tablet) 20 mg PO DAILY [facility] Last Admin: 08/04/21 08:37 Dose: 20 mg Documented by: Fluticasone/Vilanterol (Fluticasone/Vilanterol 100/25 Blst.W.Dev) 1 puff INHALE RDAILY [facility] Last Admin: 08/04/21 08:41 Dose: 1 puff Documented by: Gabapentin (Gabapentin 300 Mg Capsule) 600 mg PO TID [facility] Last Admin: 08/04/21 22:19 Dose: 600 mg Documented by: Hydroxyzine HCl (Hydroxyzine Hcl 50 Mg Tablet) 100 mg PO Q8H PRN PRN Reason: Anxiety Last Admin: 08/05/21 02:42 Dose: 100 mg Documented by: Ibuprofen (Ibuprofen 200 Mg Tablet) 200 mg PO BID [facility] Last Admin: 08/04/21 22:25 Dose: Not Given Documented by: Lactase (Lactase Tablet) 1 tab PO QID [facility] Last Admin: 08/04/21 22:20 Dose: 1 tab Documented by: Lactic Acid (Ammonium Lactate 12 % Cream 140 Gm Tube) 1 appl TOPICAL DAILY [facility]; Protocol Last Admin: 08/04/21 10:11 Dose: Not Given Documented by: Lidocaine (Lidocaine 4 % Patch Adh..Patch) 1 patch TRANSDERMA DAILY [facility]; Protocol Last Admin: 08/04/21 11:27 Dose: 1 patch Documented by: Lidocaine (Lidocaine 4 % Patch Adh..Patch) 1 patch TRANSDERMA DAILY [facility]; Protocol Last Admin: 08/04/21 11:27 Dose: 1 patch Documented by: Loperamide HCl (Loperamide Hcl 2 Mg Capsule) 2 mg PO Q4H PRN PRN Reason: Diarrhea Loratadine (Loratadine 10 Mg Tablet) 10 mg PO DAILY [facility] Last Admin: 08/04/21 08:36 Dose: 10 mg Documented by: Magnesium Hydroxide (Milk Of Magnesia 30 Ml Oral.Susp) 30 ml PO DAILY PRN PRN Reason: Constipation Metformin HCl (Metformin Hcl 500 Mg Tablet) 500 mg PO BIDWM [facility] Last Admin: 08/04/21 16:51 Dose: 500 mg Documented by: Multivitamins/Vitamin C (Multivitamin Tablet) 1 tab PO DAILY [facility] Last Admin: 08/04/21 08:39 Dose: 1 tab Documented by: Non-Formulary Medication (Piroxicam) 1 cap PO DAILY [facility] Non-Formulary Medication (Umeclidinium [Incruse Ellipta]) 1 inhalation INHALE DAILY [facility] Omeprazole (Omeprazole 20 Mg Capsule.Dr) 20 mg PO BID@0630,1630 [facility] Last Admin: 08/04/21 16:50 Dose: 20 mg Documented by: Prazosin HCl (Prazosin Hcl 1 Mg Capsule) 4 mg PO BID [facility]; Protocol Last Admin: 08/04/21 22:20 Dose: 4 mg Documented by: Trazodone HCl (Trazodone Hcl 100 Mg Tablet) 200 mg PO BEDTIME [facility] Last Admin: 08/04/21 22:19 Dose: 200 mg Documented by: Trolamine Salicylate/Aloe Vera (Trolamine Salicylate 10%/Aloe Cream 35.4 Gm) 1 appl TOPICAL QID [facility] Last Admin: 08/04/21 21:12 Dose: 1 appl Documented by: Vitamin D (Cholecalciferol (Vitamin D3) 25 Mcg Tablet) 25 mcg PO DAILY [facility] Last Admin: 08/04/21 08:36 Dose: 25 mcg Documented by: Allergies Allergies Allergy/AdvReac Type Severity Reaction Status Date / Time Benzodiazepines Allergy Intermediate Irritable Verified 08/01/21 19:03 diazepam [From Valium] Allergy Intermediate Irritable Verified 08/01/21 19:02 sulfamethoxazole Allergy Intermediate Rash Verified 08/01/21 19:01 [From Bactrim] trimethoprim [From Bactrim] Allergy Intermediate Rash Verified 08/01/21 19:01 Assessment & Plan Assessment & Plan (1) Depression: Qualifiers: Active/Remission status: currently active Depression Type: major depressive disorder Major depression episode severity: moderate Major depression recurrence: recurrent Qualified Code(s): F33.1 - Major depressive disorder, recurrent, moderate Status: Acute Code(s): F32.A - Depression, unspecified Assessment and Plan: continue current regimen (2) Suicidal ideation: Status: Acute Code(s): R45.851 - Suicidal ideations Assessment and Plan: resolved (3) Diabetes mellitus, type 2: Status: Acute Code(s): E11.9 - Type 2 diabetes mellitus without complications Assessment and Plan: continue current regimen. collect data. (4) Sleep apnea: Status: Acute Code(s): G47.30 - Sleep apnea, unspecified Assessment and Plan: CPAP while sleeping. Assessment and Plan: admit to M[facility], keep safe. continue outpt regimen. collect collateral from outpt providers. message left for Dr. Morris @[facility] [address] [phone]. contact with [employer] staff 08/04, they will fax info. collateral collected from pt's mother 08/04 (supports narrative above re destabilization upon return from vacation, need for higher tegretol level. added pt recently feeling guilty about dietary indiscretion and misusing a credit card her mother had obtained for her). tegretol dosing increased from 600 BID at admission to 600/800. check level after about 5 days. 08/05/2021 Continue current regimen and plans with no changes today I spent minutes with the patient and/or on the patient floor today, greater than?50% of which was spent counseling/coordinating care. Reason for contiued inpatient stay Substantial Risk for: other
[2021-08-05 08:16] LABS: Glucose, Whole Blood 110 mg/dL (60-115)
[2021-08-05] MEDS: Prazosin HCL 1 MG CAPSULE 4 MG PO ×2 (08:46→22:23)
[2021-08-05] MEDS: carBAMazepine ER 200 MG TAB.ER.12H 600 MG PO (08:46)
[2021-08-05] MEDS: Multivitamin TABLET 1 TAB PO (08:47)
[2021-08-05] MEDS: Lactase TABLET 1 TAB PO ×4 (08:48→22:24)
[2021-08-05] MEDS: metFORMIN HCl 500 MG TABLET PO ×2 (08:48→16:28)
[2021-08-05] MEDS: Gabapentin 300 MG CAPSULE 600 MG PO ×3 (08:48→22:23)
[2021-08-05] MEDS: Ibuprofen 200 MG TABLET PO ×2 (08:49→22:22)
[2021-08-05] MEDS: Cholecalciferol (Vitamin D3) 25 MCG TABLET PO (08:49)
[2021-08-05] MEDS: Famotidine 20 MG TABLET PO (08:49)
[2021-08-05] MEDS: Loratadine 10 MG TABLET PO (08:50)
[2021-08-05] MEDS: Fluticasone/Vilanterol 100/25 BLST.W.DEV 1 PUFF INHALE (08:50)
[2021-08-05] MEDS: cloNIDine HCL 0.1 MG TABLET PO ×2 (08:50→16:26)
[2021-08-05] MEDS: Omeprazole 20 MG CAPSULE.DR PO ×2 (08:50→16:29)
[2021-08-05] MEDS: Artificial Tears 15 ML DROPS 1 DROP EYE-BOTH ×2 (08:50→22:13)
[2021-08-05] MEDS: Calcium Carbonate 750 MG TAB.CHEW PO (16:28)
[2021-08-05] MEDS: Lidocaine 4 % Patch ADH..PATCH 1 PATCH TRANSDERMA ×2 (17:31→17:33)
[2021-08-05 21:31] LABS: Glucose, Whole Blood 93 mg/dL (60-115)
[2021-08-05] MEDS: Bacitracin Oint 14 GM TUBE 1 APPL TOPICAL (22:12)
[2021-08-05] MEDS: Clotrimazole 1 % Cream 15 GM TUBE 1 APPL TOPICAL (22:13)
[2021-08-05] MEDS: cloNIDine HCL 0.1 MG TABLET 0.3 MG PO (22:21)
[2021-08-05] MEDS: carBAMazepine ER 200 MG TAB.ER.12H 800 MG PO (22:21)
[2021-08-05] MEDS: traZODone HCL 100 MG TABLET 200 MG PO (22:23)
[2021-08-05 22:27] VITALS: BP 149/79; PULSE 85; TEMP 36.7; O2SAT 95
[2021-08-06] MEDS: hydrOXYzine HCL 50 MG TABLET 100 MG PO ×2 (01:46→14:34)
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
[2021-08-06 08:30] VITALS: PULSE 80; RESP 18; TEMP 36.6; O2SAT 96
[2021-08-06] MEDS: Lactase TABLET 1 TAB PO ×4 (08:57→21:18)
[2021-08-06] MEDS: Loratadine 10 MG TABLET PO (08:57)
[2021-08-06] MEDS: Omeprazole 20 MG CAPSULE.DR PO ×2 (08:57→16:51)
[2021-08-06] MEDS: cloNIDine HCL 0.1 MG TABLET PO ×2 (08:58→15:37)
[2021-08-06] MEDS: Famotidine 20 MG TABLET PO (08:58)
[2021-08-06] MEDS: Cholecalciferol (Vitamin D3) 25 MCG TABLET PO (08:58)
[2021-08-06] MEDS: carBAMazepine ER 200 MG TAB.ER.12H 600 MG PO (08:58)
[2021-08-06] MEDS: metFORMIN HCl 500 MG TABLET PO ×2 (08:58→16:51)
[2021-08-06] MEDS: Gabapentin 300 MG CAPSULE 600 MG PO ×3 (08:58→21:18)
[2021-08-06] MEDS: Prazosin HCL 1 MG CAPSULE 4 MG PO ×2 (08:59→21:18)
[2021-08-06] MEDS: Ibuprofen 200 MG TABLET PO ×2 (08:59→21:18)
[2021-08-06] MEDS: Fluticasone/Vilanterol 100/25 BLST.W.DEV 1 PUFF INHALE (09:02)
[2021-08-06] MEDS: Bacitracin Oint 14 GM TUBE 1 APPL TOPICAL ×2 (09:03→21:27)
[2021-08-06] MEDS: Ammonium Lactate 12 % Cream 140 GM TUBE 1 APPL TOPICAL (09:07)
[2021-08-06] MEDS: Lidocaine 4 % Patch ADH..PATCH 1 PATCH TRANSDERMA ×2 (09:08)
[2021-08-06] MEDS: Multivitamin TABLET 1 TAB PO (09:13)
[2021-08-06] MEDS: Magnesium Hydrox/Alum Hydrox 30 ML ORAL.SUSP PO (15:37)
--- NOTE | 2021-08-06 20:40 | PC.NURSE ---
At approx. 1945 pt reported to RN that she had rolled her left ankle sometime earlier in the day and she was experiencing a lot of pain and was concerned as she had had surgery on that ankle in the past. Pt reported pain to be greater than 10/10 and stated that it was swollen. Upon RN examination, only minor swelling was noted, no bruising observed. Though pt was able to ambulate she was not bearing full weight on her left ankle/foot. MD was notified. Pt is already on Ibuprofen 200 mg BID scheduled. Order obtained for Ibuprofen 600 mg q4 hours prn pain. Pt is encouraged to elevate extremity as able and will be reassessed tomorrow. Declined offers/recommendations to apply ice/cold treatment. Provided pillows to help elevate extremity while laying in bed.
[2021-08-06 21:13] LABS: Glucose, Whole Blood 109 mg/dL (60-115)
[2021-08-06 21:13] LABS: Glucose, Whole Blood 113 mg/dL (60-115)
[2021-08-06] MEDS: cloNIDine HCL 0.1 MG TABLET 0.3 MG PO (21:17)
[2021-08-06] MEDS: traZODone HCL 100 MG TABLET 200 MG PO (21:18)
[2021-08-06] MEDS: carBAMazepine ER 200 MG TAB.ER.12H 800 MG PO (21:18)
[2021-08-06] MEDS: Clotrimazole 1 % Cream 15 GM TUBE 1 APPL TOPICAL (21:27)
[2021-08-06 21:28] VITALS: BP 136/71; PULSE 91; TEMP 36.6; O2SAT 95
[2021-08-07] MEDS: Ibuprofen 600 MG TABLET PO (01:15)
[2021-08-07] MEDS: hydrOXYzine HCL 50 MG TABLET 100 MG PO ×2 (01:15→21:28)
[2021-08-07 08:31] VITALS: BP 146/94; PULSE 78; RESP 16; TEMP 36.7; O2SAT 92
[2021-08-07] MEDS: Fluticasone/Vilanterol 100/25 BLST.W.DEV 1 PUFF INHALE (08:32)
[2021-08-07] MEDS: Prazosin HCL 1 MG CAPSULE 4 MG PO ×2 (08:33→23:51)
[2021-08-07] MEDS: Cholecalciferol (Vitamin D3) 25 MCG TABLET PO (08:34)
[2021-08-07] MEDS: Lactase TABLET 1 TAB PO ×4 (08:34→22:50)
[2021-08-07] MEDS: Ibuprofen 200 MG TABLET PO ×2 (08:35→22:50)
[2021-08-07] MEDS: Multivitamin TABLET 1 TAB PO (08:36)
[2021-08-07] MEDS: Famotidine 20 MG TABLET PO (08:36)
[2021-08-07] MEDS: Gabapentin 300 MG CAPSULE 600 MG PO ×3 (08:36→22:49)
[2021-08-07] MEDS: metFORMIN HCl 500 MG TABLET PO ×2 (08:37→17:10)
[2021-08-07] MEDS: carBAMazepine ER 200 MG TAB.ER.12H 600 MG PO (08:37)
[2021-08-07] MEDS: cloNIDine HCL 0.1 MG TABLET PO ×2 (08:37→14:29)
[2021-08-07] MEDS: Omeprazole 20 MG CAPSULE.DR PO ×2 (08:37→17:10)
[2021-08-07] MEDS: Loratadine 10 MG TABLET PO (08:38)
[2021-08-07 08:53] LABS: Glucose, Whole Blood 94 mg/dL (60-115)
[2021-08-07 08:59] LABS: Anion Gap 11 (12-20); Blood Urea Nitrogen 18 mg/dL (9-16); Calcium 9.1 mg/dL (8.4-10.2); Carbon Dioxide 26 mmol/L (22-29); Chloride 104 mmol/L (96-108); Creatinine Clr Calc Pharmacy 119.9; Estimated Glomerular Filt Rate > 60; Glucose Random 104 mg/dL (60-115); Potassium 4.1 mmol/L (3.3-5.1); Sodium 137 mmol/L (135-145)
--- NOTE | 2021-08-07 10:15 | P.PNPSI_ITS ---
Subjective Subjective Date of Service: 08/07/21 Reason For Visit: Mood Disorder Subjective Notes: Conditional Voluntary Interim History: Pt reports she continues to be manicky-panicky. Pt denies AH/VH. Pt reports having nightmares related to past trauma. Pt reports passive SI, but denies any plan or intent to hurt herself. Pt does clarify that thoughts are SIB- cutting forearm but does not have urge to hurt self. 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 Pt reports she twisted left ankle, thinks she broke ankle, due to severe pain. Pt does not appear in pain when talking about other aspects of care on unit. Medication Compliance: Yes Side effects from medications: No Review of Systems Acute medical concerns: Yes Review of Systems Review of Systems Constitutional: No Fever, No Chills ENT/Mouth: No Ear Pain, No Nasal Congestion, No sore throat Eyes: No Eye Pain, No Swelling, No Redness Cardiovascular: No Chest Pain, No SOB Respiratory: No Cough, No Sputum, No Dyspnea Gastrointestinal: No Nausea, No Vomiting, No Diarrhea, No Hematochezia, No Melena Genitourinary: No Dysuria, No Urinary Frequency, No Hematuria, flank pain and discomfort Musculoskeletal: No Myalgias Skin: No Skin Lesions, No rash Neuro: No Weakness, No Numbness, No Paresthesias, No Dizziness, No Headache Psych: positive Anxiety, positive Depression, positive SI Heme/Lymph: No Lymphadenopathy Endocrine: No Polyuria, No Polydipsia Yes all other systems are reviewed and are negative Diagnostics Vital Signs (24Hr): Vital Signs - 24 hr 08/06/21 21:28 08/07/21 08:31 Temperature 97.9 F 98.0 F Pulse Rate 91 78 Respiratory Rate 16 Blood Pressure 136/71 146/94 H Pulse Oximetry 95 92 BMI result Body Mass Index 45.8 Labs Results: 08/01/21 19:39 08/07/21 08:31 Labs: Laboratory Results - last 48 hr 08/05/21 08/06/21 08/06/21 21:21 08:25 21:06 Sodium Potassium Chloride Carbon Dioxide Anion Gap BUN Creatinine Estim Creat Clear Calc Estimated GFR POC Glucose 93 113 109 Random Glucose Calcium 08/07/21 08/07/21 08:31 08:40 Sodium 137 Potassium 4.1 Chloride 104 Carbon Dioxide 26 Anion Gap 11 L BUN 18 H Creatinine 0.67 Estim Creat Clear Calc 119.9 Estimated GFR > 60 POC Glucose 94 Random Glucose 104 Calcium 9.1 Medications Medications Current Medications Acetaminophen (Acetaminophen 325 Mg Tablet) 650 mg PO Q6H PRN PRN Reason: Headache/Pain Mild Scale (1-3) Al Hydroxide/Mg Hydroxide (Magnesium Hydrox/Alum Hydrox 30 Ml Oral.Susp) 30 ml PO Q6H PRN PRN Reason: Heartburn/Nausea Last Admin: 08/06/21 15:37 Dose: 30 ml Documented by: Albuterol Sulfate (Albuterol Sulfate 90 Mcg 8 Gm Inhaler) 2 puff INHALE Q6H PRN PRN Reason: Wheezing Artificial Tears (Artificial Tears 15 Ml Drops) 1 drop EYE-BOTH QID PRN PRN Reason: Dry Eye(S) Last Admin: 08/05/21 22:13 Dose: 1 drop Documented by: Bacitracin (Bacitracin Oint 14 Gm Tube) 1 appl TOPICAL BID [facility]; Protocol Last Admin: 08/07/21 09:09 Dose: Not Given Documented by: Calcium Carbonate (Calcium Carbonate 750 Mg Tab.Chew) 750 mg PO Q6H PRN PRN Reason: Heartburn Last Admin: 08/05/21 16:28 Dose: 750 mg Documented by: Carbamazepine (Carbamazepine Er 200 Mg Tab.Er.12h) 600 mg PO DAILY [facility] Last Admin: 08/07/21 08:37 Dose: 600 mg Documented by: Carbamazepine (Carbamazepine Er 200 Mg Tab.Er.12h) 800 mg PO BEDTIME [facility] Last Admin: 08/06/21 21:18 Dose: 800 mg Documented by: Clonidine HCl (Clonidine Hcl 0.1 Mg Tablet) 0.1 mg PO TID [facility]; Protocol Last Admin: 08/07/21 08:37 Dose: 0.1 mg Documented by: Clonidine HCl (Clonidine Hcl 0.1 Mg Tablet) 0.3 mg PO BEDTIME [facility]; Protocol Last Admin: 08/06/21 21:17 Dose: 0.3 mg Documented by: Clotrimazole (Clotrimazole 1 % Cream 15 Gm Tube) 1 appl TOPICAL BEDTIME [facility]; Protocol Last Admin: 08/06/21 21:27 Dose: 1 appl Documented by: Famotidine (Famotidine 20 Mg Tablet) 20 mg PO DAILY [facility] Last Admin: 08/07/21 08:36 Dose: 20 mg Documented by: Fluticasone/Vilanterol (Fluticasone/Vilanterol 100/25 Blst.W.Dev) 1 puff INHALE RDAILY [facility] Last Admin: 08/07/21 08:32 Dose: 1 puff Documented by: Gabapentin (Gabapentin 300 Mg Capsule) 600 mg PO TID [facility] Last Admin: 08/07/21 08:36 Dose: 600 mg Documented by: Hydroxyzine HCl (Hydroxyzine Hcl 50 Mg Tablet) 100 mg PO Q8H PRN PRN Reason: Anxiety Last Admin: 08/07/21 01:15 Dose: 100 mg Documented by: Ibuprofen (Ibuprofen 200 Mg Tablet) 200 mg PO BID [facility] Last Admin: 08/07/21 08:35 Dose: 200 mg Documented by: Ibuprofen (Ibuprofen 600 Mg Tablet) 600 mg PO Q4H PRN PRN Reason: Pain, Mild (Pain Scale 1-3) Last Admin: 08/07/21 01:15 Dose: 600 mg Documented by: Lactase (Lactase Tablet) 1 tab PO QID [facility] Last Admin: 08/07/21 08:34 Dose: 1 tab Documented by: Lactic Acid (Ammonium Lactate 12 % Cream 140 Gm Tube) 1 appl TOPICAL DAILY [facility]; Protocol Last Admin: 08/07/21 09:09 Dose: Not Given Documented by: Lidocaine (Lidocaine 4 % Patch Adh..Patch) 1 patch TRANSDERMA DAILY [facility]; Protocol Last Admin: 08/06/21 09:08 Dose: 1 patch Documented by: Lidocaine (Lidocaine 4 % Patch Adh..Patch) 1 patch TRANSDERMA DAILY [facility]; Protocol Last Admin: 08/06/21 09:08 Dose: 1 patch Documented by: Loperamide HCl (Loperamide Hcl 2 Mg Capsule) 2 mg PO Q4H PRN PRN Reason: Diarrhea Loratadine (Loratadine 10 Mg Tablet) 10 mg PO DAILY [facility] Last Admin: 08/07/21 08:38 Dose: 10 mg Documented by: Magnesium Hydroxide (Milk Of Magnesia 30 Ml Oral.Susp) 30 ml PO DAILY PRN PRN Reason: Constipation Metformin HCl (Metformin Hcl 500 Mg Tablet) 500 mg PO BIDWM [facility] Last Admin: 08/07/21 08:37 Dose: 500 mg Documented by: Multivitamins/Vitamin C (Multivitamin Tablet) 1 tab PO DAILY [facility] Last Admin: 08/07/21 08:36 Dose: 1 tab Documented by: Omeprazole (Omeprazole 20 Mg Capsule.Dr) 20 mg PO BID@0630,1630 [facility] Last Admin: 08/07/21 08:37 Dose: 20 mg Documented by: Prazosin HCl (Prazosin Hcl 1 Mg Capsule) 4 mg PO BID [facility]; Protocol Last Admin: 08/07/21 08:33 Dose: 4 mg Documented by: Tiotropium [place] (Tiotropium Une[place] 18 Mcg Cap.W.Dev) 1 puff INHALE RDAILY [facility] Last Admin: 08/07/21 08:32 Dose: 1 puff Documented by: Trazodone HCl (Trazodone Hcl 100 Mg Tablet) 200 mg PO BEDTIME [facility] Last Admin: 08/06/21 21:18 Dose: 200 mg Documented by: Trolamine Salicylate/Aloe Vera (Trolamine Salicylate 10%/Aloe Cream 35.4 Gm) 1 appl TOPICAL QID [facility] Last Admin: 08/07/21 09:09 Dose: Not Given Documented by: Vitamin D (Cholecalciferol (Vitamin D3) 25 Mcg Tablet) 25 mcg PO DAILY [facility] Last Admin: 08/07/21 08:34 Dose: 25 mcg Documented by: Allergies Allergies Allergy/AdvReac Type Severity Reaction Status Date / Time Benzodiazepines Allergy Intermediate Irritable Verified 08/01/21 19:03 diazepam [From Valium] Allergy Intermediate Irritable Verified 08/01/21 19:02 sulfamethoxazole Allergy Intermediate Rash Verified 08/01/21 19:01 [From Bactrim] trimethoprim [From Bactrim] Allergy Intermediate Rash Verified 08/01/21 19:01 Assessment & Plan Assessment & Plan (1) Depression: Qualifiers: Active/Remission status: currently active Depression Type: major depressive disorder Major depression episode severity: moderate Major depression recurrence: recurrent Qualified Code(s): F33.1 - Major depressive disorder, recurrent, moderate Status: Acute Code(s): F32.A - Depression, unspecified Assessment and Plan: continue current regimen (2) Suicidal ideation: Status: Acute Code(s): R45.851 - Suicidal ideations Assessment and Plan: resolved (3) Diabetes mellitus, type 2: Status: Acute Code(s): E11.9 - Type 2 diabetes mellitus without complications Assessment and Plan: continue current regimen. collect data. (4) Sleep apnea: Status: Acute Code(s): G47.30 - Sleep apnea, unspecified Assessment and Plan: CPAP while sleeping. Assessment and Plan: admit to M3, keep safe. continue outpt regimen. collect collateral from outpt providers. message left for Dr. Morris @[facility] drive [phone]. contact with [facility] staff 08/04, they will fax info. collateral collected from pt's mother 08/04 (supports narrative above re destabilization upon return from vacation, need for higher tegretol level. added pt recently feeling guilty about dietary indiscretion and misusing a credit card her mother had obtained for her). tegretol dosing increased from 600 BID at admission to 600/800. check level after about 5 days. 08/05/2021 Continue current regimen and plans with no changes today 08/06/2021 Continue current plans and regimen 08/07- pt reports SI, no plan or intent, nightmares related to past trauma. SIB urges but denies acting on urges. I spent minutes with the patient and/or on the patient floor today, greater than?50% of which was spent counseling/coordinating care. Reason for contiued inpatient stay Substantial Risk for: inability to function
[2021-08-07] MEDS: Lidocaine 4 % Patch ADH..PATCH 1 PATCH TRANSDERMA ×2 (12:37)
[2021-08-07 14:28] VITALS: BP 143/93; PULSE 95
[2021-08-07] MEDS: Magnesium Hydrox/Alum Hydrox 30 ML ORAL.SUSP PO (14:50)
[2021-08-07] MEDS: Bacitracin Oint 14 GM TUBE 1 APPL TOPICAL (18:05)
--- NOTE | 2021-08-07 20:32 | MHC.CLN ---
F/U SUPPLEMENT CHANGED FROM ENSURE BID TO GLUCERNA BID. AGREE WITH CHANGE DUE TO DX DM AND GLUCERNA PROVIDES FEWER CALORIES THAN ENSURE.
[2021-08-07] MEDS: Calcium Carbonate 750 MG TAB.CHEW PO (21:28)
[2021-08-07 22:44] LABS: Glucose, Whole Blood 109 mg/dL (60-115)
[2021-08-07] MEDS: cloNIDine HCL 0.1 MG TABLET 0.3 MG PO (22:49)
[2021-08-07] MEDS: traZODone HCL 100 MG TABLET 200 MG PO (22:49)
[2021-08-07] MEDS: carBAMazepine ER 200 MG TAB.ER.12H 800 MG PO (22:49)
[2021-08-07] MEDS: clonazePAM 0.5 MG TABLET PO (23:50)
[2021-08-07] MEDS: Ondansetron ODT 4 MG TAB.RAPDIS TRANSLINGU (23:50)
[2021-08-08] MEDS: clonazePAM 0.5 MG TABLET PO ×2 (02:12→11:56)
[2021-08-08 08:12] VITALS: BP 127/64; PULSE 88; RESP 18; TEMP 36.8; O2SAT 91
[2021-08-08] MEDS: Fluticasone/Vilanterol 100/25 BLST.W.DEV 1 PUFF INHALE (08:40)
[2021-08-08] MEDS: Gabapentin 300 MG CAPSULE 600 MG PO ×3 (08:43→22:21)
[2021-08-08] MEDS: carBAMazepine ER 200 MG TAB.ER.12H 600 MG PO (08:43)
[2021-08-08] MEDS: Prazosin HCL 1 MG CAPSULE 4 MG PO (08:44)
[2021-08-08] MEDS: cloNIDine HCL 0.1 MG TABLET PO ×2 (08:45→15:36)
[2021-08-08] MEDS: Lactase TABLET 1 TAB PO ×4 (08:45→22:21)
[2021-08-08] MEDS: Loratadine 10 MG TABLET PO (08:45)
[2021-08-08] MEDS: metFORMIN HCl 500 MG TABLET PO ×2 (08:46→17:08)
[2021-08-08] MEDS: Omeprazole 20 MG CAPSULE.DR PO ×2 (08:46→17:08)
[2021-08-08] MEDS: Cholecalciferol (Vitamin D3) 25 MCG TABLET PO (08:46)
[2021-08-08] MEDS: Ibuprofen 200 MG TABLET PO ×2 (08:46→22:20)
[2021-08-08] MEDS: Multivitamin TABLET 1 TAB PO (08:47)
[2021-08-08] MEDS: Famotidine 20 MG TABLET PO (08:48)
[2021-08-08 09:00] LABS: Glucose, Whole Blood 104 mg/dL (60-115)
--- NOTE | 2021-08-08 14:29 | HO.PSYCHPN ---
Subjective Subjective Date of Service: 08/08/21 Reason For Visit: Mood Disorder Interim History: pt reports she is still having a difficult time. endorse SI with plan to drink all of [her] ADL supplies. she states she asked for them to be removed from her room for that reason, which staff did, per her report. she endorses difficulty sleeping with flashbacks and nightmares at night. agreeable to increase clonidine, then asks that prazosin also be increased. focused on somatic complaints and interpersonal complaints with parents. encouraged to be in touch with staff from her care home. per staff, rolled ankle on saturday, sat c/o 10/10 ankle pain. asked for wheelchair. c/o flashbacks/nightmares as well as vomiting after every meal (not witnessed by staff). asking for 1:1. Mental Status Exam Mental Status Exam Narrative: appropriately dressed and groomed. cooperative. no PMA/PMR. speech nml rate, amount, loudness, tone, latency. thoughts linear and logical. affect constricted, normo-intense, non-labile, consistent with context. mood anxious and depressed. +SI, plan to consume her toiletries. no HI/AVH expressed. Diagnostics Vital Signs (24Hr): Vital Signs - 24 hr 08/08/21 08:12 Temperature 98.3 F Pulse Rate 88 Respiratory Rate 18 Blood Pressure 127/64 Pulse Oximetry 91 L BMI result Body Mass Index 45.8 Labs Results: 08/01/21 19:39 08/07/21 08:31 Labs: Laboratory Results - last 48 hr 08/06/21 08/06/21 08/07/21 08:25 21:06 08:31 Sodium 137 Potassium 4.1 Chloride 104 Carbon Dioxide 26 Anion Gap 11 L BUN 18 H Creatinine 0.67 Estim Creat Clear Calc 119.9 Estimated GFR > 60 POC Glucose 113 109 Random Glucose 104 Calcium 9.1 08/07/21 08/07/21 08/08/21 08:40 22:40 08:52 Sodium Potassium Chloride Carbon Dioxide Anion Gap BUN Creatinine Estim Creat Clear Calc Estimated GFR POC Glucose 94 109 104 Random Glucose Calcium Imaging Radiology Impressions: ITS Impressions Ankle X-Ray 08/07/21 15:04 IMPRESSION: No fracture or dislocation. Soft tissue swelling around the lateral ankle. Subcutaneous edema. Medications Medications Current Medications Acetaminophen (Acetaminophen 325 Mg Tablet) 650 mg PO Q6H PRN PRN Reason: Headache/Pain Mild Scale (1-3) Al Hydroxide/Mg Hydroxide (Magnesium Hydrox/Alum Hydrox 30 Ml Oral.Susp) 30 ml PO Q6H PRN PRN Reason: Heartburn/Nausea Last Admin: 08/07/21 14:50 Dose: 30 ml Documented by: Albuterol Sulfate (Albuterol Sulfate 90 Mcg 8 Gm Inhaler) 2 puff INHALE Q6H PRN PRN Reason: Wheezing Artificial Tears (Artificial Tears 15 Ml Drops) 1 drop EYE-BOTH QID PRN PRN Reason: Dry Eye(S) Last Admin: 08/05/21 22:13 Dose: 1 drop Documented by: Bacitracin (Bacitracin Oint 14 Gm Tube) 1 appl TOPICAL BID [facility]; Protocol Last Admin: 08/08/21 12:04 Dose: Not Given Documented by: Calcium Carbonate (Calcium Carbonate 750 Mg Tab.Chew) 750 mg PO Q6H PRN PRN Reason: Heartburn Last Admin: 08/07/21 21:28 Dose: 750 mg Documented by: Carbamazepine (Carbamazepine Er 200 Mg Tab.Er.12h) 600 mg PO DAILY [facility] Last Admin: 08/08/21 08:43 Dose: 600 mg Documented by: Carbamazepine (Carbamazepine Er 200 Mg Tab.Er.12h) 800 mg PO BEDTIME [facility] Last Admin: 08/07/21 22:49 Dose: 800 mg Documented by: Clonazepam (Clonazepam 0.5 Mg Tablet) 0.5 mg PO BID PRN PRN Reason: Anxiety Last Admin: 08/08/21 11:56 Dose: 0.5 mg Documented by: Clonidine HCl (Clonidine Hcl 0.1 Mg Tablet) 0.1 mg PO TID [facility]; Protocol Last Admin: 08/08/21 08:45 Dose: 0.1 mg Documented by: Clonidine HCl (Clonidine Hcl 0.2 Mg Tablet) 0.4 mg PO BEDTIME [facility]; Protocol Clotrimazole (Clotrimazole 1 % Cream 15 Gm Tube) 1 appl TOPICAL BEDTIME [facility]; Protocol Last Admin: 08/08/21 00:00 Dose: 1 appl Documented by: Famotidine (Famotidine 20 Mg Tablet) 20 mg PO DAILY [facility] Last Admin: 08/08/21 08:48 Dose: 20 mg Documented by: Fluticasone/Vilanterol (Fluticasone/Vilanterol 100/25 Blst.W.Dev) 1 puff INHALE RDAILY [facility] Last Admin: 08/08/21 08:40 Dose: 1 puff Documented by: Gabapentin (Gabapentin 300 Mg Capsule) 600 mg PO TID [facility] Last Admin: 08/08/21 08:43 Dose: 600 mg Documented by: Hydroxyzine HCl (Hydroxyzine Hcl 50 Mg Tablet) 100 mg PO Q8H PRN PRN Reason: Anxiety Last Admin: 08/07/21 21:28 Dose: 100 mg Documented by: Ibuprofen (Ibuprofen 200 Mg Tablet) 200 mg PO BID [facility] Last Admin: 08/08/21 08:46 Dose: 200 mg Documented by: Ibuprofen (Ibuprofen 600 Mg Tablet) 600 mg PO Q4H PRN PRN Reason: Pain, Mild (Pain Scale 1-3) Last Admin: 08/07/21 01:15 Dose: 600 mg Documented by: Lactase (Lactase Tablet) 1 tab PO QID [facility] Last Admin: 08/08/21 12:59 Dose: 1 tab Documented by: Lactic Acid (Ammonium Lactate 12 % Cream 140 Gm Tube) 1 appl TOPICAL DAILY [facility]; Protocol Last Admin: 08/08/21 09:55 Dose: Not Given Documented by: Lidocaine (Lidocaine 4 % Patch Adh..Patch) 1 patch TRANSDERMA DAILY [facility]; Protocol Last Admin: 08/07/21 12:37 Dose: 1 patch Documented by: Lidocaine (Lidocaine 4 % Patch Adh..Patch) 1 patch TRANSDERMA DAILY [facility]; Protocol Last Admin: 08/07/21 12:37 Dose: 1 patch Documented by: Loperamide HCl (Loperamide Hcl 2 Mg Capsule) 2 mg PO Q4H PRN PRN Reason: Diarrhea Loratadine (Loratadine 10 Mg Tablet) 10 mg PO DAILY [facility] Last Admin: 08/08/21 08:45 Dose: 10 mg Documented by: Magnesium Hydroxide (Milk Of Magnesia 30 Ml Oral.Susp) 30 ml PO DAILY PRN PRN Reason: Constipation Metformin HCl (Metformin Hcl 500 Mg Tablet) 500 mg PO BIDWM [facility] Last Admin: 08/08/21 08:46 Dose: 500 mg Documented by: Multivitamins/Vitamin C (Multivitamin Tablet) 1 tab PO DAILY [facility] Last Admin: 08/08/21 08:47 Dose: 1 tab Documented by: Omeprazole (Omeprazole 20 Mg Capsule.Dr) 20 mg PO BID@0630,1630 [facility] Last Admin: 08/08/21 08:46 Dose: 20 mg Documented by: Ondansetron HCl (Ondansetron Odt 4 Mg Tab.Rapdis) 4 mg TRANSLINGU Q8H PRN PRN Reason: Nausea and Vomiting Last Admin: 08/07/21 23:50 Dose: 4 mg Documented by: Prazosin HCl (Prazosin Hcl 1 Mg Capsule) 5 mg PO BID [facility]; Protocol Tiotropium [place] (Tiotropium [place] 18 Mcg Cap.W.Dev) 1 puff INHALE RDAILY [facility] Last Admin: 08/08/21 08:40 Dose: 1 puff Documented by: Trazodone HCl (Trazodone Hcl 100 Mg Tablet) 200 mg PO BEDTIME [facility] Last Admin: 08/07/21 22:49 Dose: 200 mg Documented by: Trolamine Salicylate/Aloe Vera (Trolamine Salicylate 10%/Aloe Cream 35.4 Gm) 1 appl TOPICAL QID [facility] Last Admin: 08/08/21 08:40 Dose: 1 appl Documented by: Vitamin D (Cholecalciferol (Vitamin D3) 25 Mcg Tablet) 25 mcg PO DAILY [facility] Last Admin: 08/08/21 08:46 Dose: 25 mcg Documented by: Allergies Allergies Allergy/AdvReac Type Severity Reaction Status Date / Time Benzodiazepines Allergy Intermediate Irritable Verified 08/01/21 19:03 diazepam [From Valium] Allergy Intermediate Irritable Verified 08/01/21 19:02 sulfamethoxazole Allergy Intermediate Rash Verified 08/01/21 19:01 [From Bactrim] trimethoprim [From Bactrim] Allergy Intermediate Rash Verified 08/01/21 19:01 Assessment & Plan Assessment & Plan (1) Depression: Qualifiers: Active/Remission status: currently active Depression Type: major depressive disorder Major depression episode severity: moderate Major depression recurrence: recurrent Qualified Code(s): F33.1 - Major depressive disorder, recurrent, moderate Status: Acute Code(s): F32.A - Depression, unspecified Assessment and Plan: continue current regimen (2) Suicidal ideation: Status: Acute Code(s): R45.851 - Suicidal ideations Assessment and Plan: resolved (3) Diabetes mellitus, type 2: Status: Acute Code(s): E11.9 - Type 2 diabetes mellitus without complications Assessment and Plan: continue current regimen. collect data. (4) Sleep apnea: Status: Acute Code(s): G47.30 - Sleep apnea, unspecified Assessment and Plan: CPAP while sleeping. Assessment and Plan: admit to M3, keep safe. continue outpt regimen. collect collateral from outpt providers. message left for Dr. Morris @[facility] drive [phone]. contact with [facility] staff 08/04, they will fax info. collateral collected from pt's mother 08/04 (supports narrative above re destabilization upon return from vacation, need for higher tegretol level. added pt recently feeling guilty about dietary indiscretion and misusing a credit card her mother had obtained for her). tegretol dosing increased from 600 BID at admission to 600/800. check level after about 5 days. 08/05/2021 Continue current regimen and plans with no changes today 08/06/2021 Continue current plans and regimen 08/07- pt reports SI, no plan or intent, nightmares related to past trauma. SIB urges but denies acting on urges. 08/08- reports SI, no intent. prazosin increased to 5 mg and clonidine at HS to 0.4 mg for nightmares. I spent minutes with the patient and/or on the patient floor today, greater than?50% of which was spent counseling/coordinating care. Reason for contiued inpatient stay Substantial Risk for: harm to self
[2021-08-08 15:38] VITALS: BP 128/70; PULSE 78
[2021-08-08 22:08] VITALS: BP 156/83; PULSE 89; RESP 18; TEMP 36.6; O2SAT 97
[2021-08-08] MEDS: Clotrimazole 1 % Cream 15 GM TUBE 1 APPL TOPICAL ×2 (22:16)
[2021-08-08] MEDS: carBAMazepine ER 200 MG TAB.ER.12H 800 MG PO (22:18)
[2021-08-08] MEDS: cloNIDine HCL 0.2 MG TABLET 0.4 MG PO (22:19)
[2021-08-08] MEDS: traZODone HCL 100 MG TABLET 200 MG PO (22:20)
[2021-08-08] MEDS: Prazosin HCL 1 MG CAPSULE 5 MG PO (22:22)
[2021-08-08] MEDS: Magnesium Hydrox/Alum Hydrox 30 ML ORAL.SUSP PO (22:28)
[2021-08-08] MEDS: Calcium Carbonate 750 MG TAB.CHEW PO (22:28)
[2021-08-08] MEDS: Ondansetron ODT 4 MG TAB.RAPDIS TRANSLINGU (23:20)
[2021-08-09 00:33] LABS: Glucose, Whole Blood 118 mg/dL (60-115)
[2021-08-09] MEDS: Ibuprofen 600 MG TABLET PO (03:17)
[2021-08-09] MEDS: hydrOXYzine HCL 50 MG TABLET 100 MG PO ×2 (03:18→23:49)
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
[2021-08-09] MEDS: Gabapentin 300 MG CAPSULE 600 MG PO ×3 (08:20→22:35)
[2021-08-09 08:22] LABS: MANUAL DIFF FLAG NO
[2021-08-09] MEDS: Famotidine 20 MG TABLET PO (08:24)
[2021-08-09] MEDS: Ibuprofen 200 MG TABLET PO ×2 (08:24→22:34)
[2021-08-09] MEDS: carBAMazepine ER 200 MG TAB.ER.12H 600 MG PO (08:24)
[2021-08-09] MEDS: Lactase TABLET 1 TAB PO ×4 (08:24→22:36)
[2021-08-09 08:25] LABS: Basophils Percent Auto 0.2 % (0-2); Eosinophils Absolute Auto 0.2 X10*3/uL (0.0-0.4); Eosinophils Percent Auto 2.4 % (0-4); Hematocrit 32.5 % (37.0-47.0); Hemoglobin 9.7 g/dl (12.0-16.0); Imm Gran Abs Auto 0.22 X10*3/uL (0.00-0.03); Imm Gran Pct Auto 2.5 % (0.0-0.4); Lymphocytes Absolute Auto 1.9 X10*3/uL (1.2-4.9); Lymphocytes Percent Auto 21.5 % (20-40); Mean Corpuscular HGB Conc 29.8 g/dl (31.0-35.0); Mean Corpuscular Hemoglobin 24.6 pg (27.0-33.0); Mean Corpuscular Volume 82.3 fL (80.0-98.0); Mean Platelet Volume 9.6 fL (9.4-12.3); Monocytes Absolute Auto 0.5 X10*3/uL (0.1-1.2); Neutrophils Percent Auto 67.4 % (45-73); Platelet Count 235 X10*3/uL (160-400); Red Blood Count 3.95 X10*6/uL (4.20-5.50); Red Cell Distribution Width 16.4 % (11.0-16.0); White Blood Count 8.9 X10*3/uL (4.8-10.8)
[2021-08-09] MEDS: Cholecalciferol (Vitamin D3) 25 MCG TABLET PO (08:25)
[2021-08-09] MEDS: cloNIDine HCL 0.1 MG TABLET PO ×2 (08:25→15:10)
[2021-08-09] MEDS: Multivitamin TABLET 1 TAB PO (08:25)
[2021-08-09] MEDS: Omeprazole 20 MG CAPSULE.DR PO ×2 (08:25→17:10)
[2021-08-09] MEDS: Prazosin HCL 1 MG CAPSULE 5 MG PO (08:26)
[2021-08-09] MEDS: metFORMIN HCl 500 MG TABLET PO ×2 (08:27→17:10)
[2021-08-09] MEDS: Fluticasone/Vilanterol 100/25 BLST.W.DEV 1 PUFF INHALE (08:28)
[2021-08-09 08:30] VITALS: BP 135/64; PULSE 84; RESP 18; TEMP 36.4; O2SAT 95
[2021-08-09] MEDS: Bacitracin Oint 14 GM TUBE 1 APPL TOPICAL ×2 (08:31→21:58)
[2021-08-09] MEDS: Lidocaine 4 % Patch ADH..PATCH 1 PATCH TRANSDERMA ×2 (08:33→08:34)
[2021-08-09 08:59] LABS: Carbamazepine Tegretol 8.4 mcg/mL (5.0-12.0)
[2021-08-09 09:00] LABS: Alanine Aminotransferase 13 U/L (0-31); Albumin Level 3.7 g/dL (3.5-5.0); Alkaline Phosphatase 109 U/L (39-117); Anion Gap 10 (12-20); Aspartate Amino Transferase 13 U/L (5-31); Bilirubin Direct < 0.2 mg/dL (0.0-0.5); Bilirubin Total 0.2 mg/dL (0.0-1.0); Blood Urea Nitrogen 22 mg/dL (9-16); Calcium 9.2 mg/dL (8.4-10.2); Carbon Dioxide 29 mmol/L (22-29); Chloride 104 mmol/L (96-108); Creatinine Clr Calc Pharmacy 121.6; Estimated Glomerular Filt Rate > 60; Glucose Fasting 120 mg/dL (60-99); Potassium 4.4 mmol/L (3.3-5.1); Sodium 139 mmol/L (135-145); Total Protein 6.6 g/dL (6.5-8.0)
[2021-08-09 10:14] VITALS: BP 135/64; PULSE 84; RESP 18; TEMP 36.4
[2021-08-09] MEDS: Loratadine 10 MG TABLET PO (10:14)
[2021-08-09] MEDS: Calcium Carbonate 750 MG TAB.CHEW PO (11:47)
[2021-08-09] MEDS: Magnesium Hydrox/Alum Hydrox 30 ML ORAL.SUSP PO (13:31)
--- NOTE | 2021-08-09 14:11 | HO.PSYCHPN ---
Subjective Subjective Date of Service: 08/09/21 Reason For Visit: Mood Disorder Interim History: pt reports having become irate at her mother this morning for telling her it's not possible someone might have stolen her glasses on the unit, ultimately hanging up on her mother. she asks to write out the email address of [email or web address], where she plan to petition that her mother be forced to turn over financial records to her as she feels she is not receiving enough money from her mother, who is her guardian. mentions she is upset about the [place] oscar having been too close to her. asks to have lidocaine DCed and for something hot for her elbow and flanks. agrees to capsaicin cream. c/o insomnia, asks for prazosin to be increased as well, which is done. states she managed to get in touch with residential staff and is planning to discharge next . per staff, anx 10, dep 5. +SI. visible, social. Mental Status Exam Mental Status Exam Narrative: appropriately dressed and groomed. cooperative. no PMA/PMR. speech nml rate, amount, loudness, tone, latency. thoughts linear and logical. affect constricted, normo-intense, non-labile, consistent with context. mood anxious and depressed. +SI, plan to consume her toiletries, but saying she has no intent. no HI/AVH expressed. Diagnostics Vital Signs (24Hr): Vital Signs - 24 hr 08/08/21 15:38 08/08/21 22:08 08/09/21 08:30 Temperature 97.9 F 97.6 F Pulse Rate 78 89 84 Respiratory Rate 18 18 Blood Pressure 128/70 156/83 H 135/64 Pulse Oximetry 97 95 08/09/21 10:14 Temperature 97.6 F Pulse Rate 84 Respiratory Rate 18 Blood Pressure 135/64 Pulse Oximetry BMI result Body Mass Index 45.8 Labs Results: 08/09/21 08:12 08/09/21 08:12 Labs: Laboratory Results - last 48 hr 08/07/21 08/08/21 08/08/21 22:40 08:52 22:16 WBC RBC Hgb Hct MCV MCH MCHC RDW Plt Count MPV Immature Gran % (Auto) Neut % (Auto) Lymph % (Auto) [place] % (Auto) Eos % (Auto) Baso % (Auto) Lymph # (Auto) [place] # (Auto) Eos # (Auto) Baso # (Auto) Abs Immat Gran (auto) Absolute Neuts (auto) Absolute Nucleated RBC Nucleated RBC % (auto) Sodium Potassium Chloride Carbon Dioxide Anion Gap BUN Creatinine Estim Creat Clear Calc Estimated GFR POC Glucose 109 104 118 H Fasting Glucose Calcium Total Bilirubin Direct Bilirubin AST ALT Alkaline Phosphatase Total Protein Albumin Carbamazepine 08/09/21 08/09/21 08:12 08:12 WBC 8.9 RBC 3.95 L Hgb 9.7 L Hct 32.5 L MCV 82.3 MCH 24.6 L MCHC 29.8 L RDW 16.4 H Plt Count 235 MPV 9.6 Immature Gran % (Auto) 2.5 H Neut % (Auto) 67.4 Lymph % (Auto) 21.5 [place] % (Auto) 6.0 Eos % (Auto) 2.4 Baso % (Auto) 0.2 Lymph # (Auto) 1.9 [place] # (Auto) 0.5 Eos # (Auto) 0.2 Baso # (Auto) 0.0 Abs Immat Gran (auto) 0.22 H Absolute Neuts (auto) 6.0 Absolute Nucleated RBC 0.000 Nucleated RBC % (auto) 0.0 Sodium 139 Potassium 4.4 Chloride 104 Carbon Dioxide 29 Anion Gap 10 L BUN 22 H Creatinine 0.66 Estim Creat Clear Calc 121.6 Estimated GFR > 60 POC Glucose Fasting Glucose 120 H Calcium 9.2 Total Bilirubin 0.2 Direct Bilirubin < 0.2 AST 13 ALT 13 Alkaline Phosphatase 109 Total Protein 6.6 Albumin 3.7 Carbamazepine 8.4 Imaging Radiology Impressions: ITS Impressions Ankle X-Ray 08/07/21 15:04 IMPRESSION: No fracture or dislocation. Soft tissue swelling around the lateral ankle. Subcutaneous edema. Medications Medications Current Medications Acetaminophen (Acetaminophen 325 Mg Tablet) 650 mg PO Q6H PRN PRN Reason: Headache/Pain Mild Scale (1-3) Al Hydroxide/Mg Hydroxide (Magnesium Hydrox/Alum Hydrox 30 Ml Oral.Susp) 30 ml PO Q6H PRN PRN Reason: Heartburn/Nausea Last Admin: 08/09/21 13:31 Dose: 30 ml Documented by: Albuterol Sulfate (Albuterol Sulfate 90 Mcg 8 Gm Inhaler) 2 puff INHALE Q6H PRN PRN Reason: Wheezing Artificial Tears (Artificial Tears 15 Ml Drops) 1 drop EYE-BOTH QID PRN PRN Reason: Dry Eye(S) Last Admin: 08/05/21 22:13 Dose: 1 drop Documented by: Bacitracin (Bacitracin Oint 14 Gm Tube) 1 appl TOPICAL BID [facility]; Protocol Last Admin: 08/09/21 08:31 Dose: 1 appl Documented by: Calcium Carbonate (Calcium Carbonate 750 Mg Tab.Chew) 750 mg PO Q6H PRN PRN Reason: Heartburn Last Admin: 08/09/21 11:47 Dose: 750 mg Documented by: Carbamazepine (Carbamazepine Er 200 Mg Tab.Er.12h) 600 mg PO DAILY [facility] Last Admin: 08/09/21 08:24 Dose: 600 mg Documented by: Carbamazepine (Carbamazepine Er 200 Mg Tab.Er.12h) 800 mg PO BEDTIME [facility] Last Admin: 08/08/21 22:18 Dose: 800 mg Documented by: Clonazepam (Clonazepam 0.5 Mg Tablet) 0.5 mg PO BID PRN PRN Reason: Anxiety Last Admin: 08/08/21 11:56 Dose: 0.5 mg Documented by: Clonidine HCl (Clonidine Hcl 0.2 Mg Tablet) 0.4 mg PO BEDTIME [facility]; Protocol Last Admin: 08/08/21 22:19 Dose: 0.4 mg Documented by: Clonidine HCl (Clonidine Hcl 0.1 Mg Tablet) 0.1 mg PO BID@0900,1500 [facility]; Protocol Clotrimazole (Clotrimazole 1 % Cream 15 Gm Tube) 1 appl TOPICAL BEDTIME [facility]; Protocol Last Admin: 08/08/21 22:16 Dose: 1 appl Documented by: Famotidine (Famotidine 20 Mg Tablet) 20 mg PO DAILY [facility] Last Admin: 08/09/21 08:24 Dose: 20 mg Documented by: Fluticasone/Vilanterol (Fluticasone/Vilanterol 100/25 Blst.W.Dev) 1 puff INHALE RDAILY [facility] Last Admin: 08/09/21 08:28 Dose: 1 puff Documented by: Gabapentin (Gabapentin 300 Mg Capsule) 600 mg PO TID [facility] Last Admin: 08/09/21 08:20 Dose: 600 mg Documented by: Hydroxyzine HCl (Hydroxyzine Hcl 50 Mg Tablet) 100 mg PO Q8H PRN PRN Reason: Anxiety Last Admin: 08/09/21 03:18 Dose: 100 mg Documented by: Ibuprofen (Ibuprofen 200 Mg Tablet) 200 mg PO BID [facility] Last Admin: 08/09/21 08:24 Dose: 200 mg Documented by: Ibuprofen (Ibuprofen 600 Mg Tablet) 600 mg PO Q4H PRN PRN Reason: Pain, Mild (Pain Scale 1-3) Last Admin: 08/09/21 03:17 Dose: 600 mg Documented by: Lactase (Lactase Tablet) 1 tab PO QID [facility] Last Admin: 08/09/21 13:00 Dose: 1 tab Documented by: Lactic Acid (Ammonium Lactate 12 % Cream 140 Gm Tube) 1 appl TOPICAL DAILY [facility]; Protocol Last Admin: 08/09/21 10:13 Dose: Not Given Documented by: Loperamide HCl (Loperamide Hcl 2 Mg Capsule) 2 mg PO Q4H PRN PRN Reason: Diarrhea Loratadine (Loratadine 10 Mg Tablet) 10 mg PO DAILY [facility] Last Admin: 08/09/21 10:14 Dose: 10 mg Documented by: Magnesium Hydroxide (Milk Of Magnesia 30 Ml Oral.Susp) 30 ml PO DAILY PRN PRN Reason: Constipation Metformin HCl (Metformin Hcl 500 Mg Tablet) 500 mg PO BIDWM [facility] Last Admin: 08/09/21 08:27 Dose: 500 mg Documented by: Multivitamins/Vitamin C (Multivitamin Tablet) 1 tab PO DAILY [facility] Last Admin: 08/09/21 08:25 Dose: 1 tab Documented by: Omeprazole (Omeprazole 20 Mg Capsule.Dr) 20 mg PO BID@0630,1630 [facility] Last Admin: 08/09/21 08:25 Dose: 20 mg Documented by: Ondansetron HCl (Ondansetron Odt 4 Mg Tab.Rapdis) 4 mg TRANSLINGU Q8H PRN PRN Reason: Nausea and Vomiting Last Admin: 08/08/21 23:20 Dose: 4 mg Documented by: Prazosin HCl (Prazosin Hcl 1 Mg Capsule) 6 mg PO BID [facility]; Protocol Tiotropium [place] (Tiotropium [place] 18 Mcg Cap.W.Dev) 1 puff INHALE RDAILY [facility] Last Admin: 08/09/21 08:28 Dose: 1 puff Documented by: Trazodone HCl (Trazodone Hcl 100 Mg Tablet) 200 mg PO BEDTIME [facility] Last Admin: 08/08/21 22:20 Dose: 200 mg Documented by: Trolamine Salicylate/Aloe Vera (Trolamine Salicylate 10%/Aloe Cream 35.4 Gm) 1 appl TOPICAL QID [facility] Last Admin: 08/09/21 13:00 Dose: Not Given Documented by: Vitamin D (Cholecalciferol (Vitamin D3) 25 Mcg Tablet) 25 mcg PO DAILY [facility] Last Admin: 08/09/21 08:25 Dose: 25 mcg Documented by: Allergies Allergies Allergy/AdvReac Type Severity Reaction Status Date / Time Benzodiazepines Allergy Intermediate Irritable Verified 08/01/21 19:03 diazepam [From Valium] Allergy Intermediate Irritable Verified 08/01/21 19:02 sulfamethoxazole Allergy Intermediate Rash Verified 08/01/21 19:01 [From Bactrim] trimethoprim [From Bactrim] Allergy Intermediate Rash Verified 08/01/21 19:01 Assessment & Plan Assessment & Plan (1) Depression: Qualifiers: Active/Remission status: currently active Depression Type: major depressive disorder Major depression episode severity: moderate Major depression recurrence: recurrent Qualified Code(s): F33.1 - Major depressive disorder, recurrent, moderate Status: Acute Code(s): F32.A - Depression, unspecified Assessment and Plan: continue current regimen (2) Suicidal ideation: Status: Acute Code(s): R45.851 - Suicidal ideations Assessment and Plan: variable (3) Diabetes mellitus, type 2: Status: Acute Code(s): E11.9 - Type 2 diabetes mellitus without complications Assessment and Plan: continue current regimen. collect data. (4) Sleep apnea: Status: Acute Code(s): G47.30 - Sleep apnea, unspecified Assessment and Plan: CPAP while sleeping. Assessment and Plan: admit to M3, keep safe. continue outpt regimen. collect collateral from outpt providers. message left for Dr. Morris @[facility] [phone]. contact with [facility] staff 08/04, they will fax info. collateral collected from pt's mother 08/04 (supports narrative above re destabilization upon return from vacation, need for higher tegretol level. added pt recently feeling guilty about dietary indiscretion and misusing a credit card her mother had obtained for her). tegretol dosing increased from 600 BID at admission to 600/800. check level after about 5 days. 08/05/2021 Continue current regimen and plans with no changes today 08/06/2021 Continue current plans and regimen 08/07- pt reports SI, no plan or intent, nightmares related to past trauma. SIB urges but denies acting on urges. 08/08- reports SI, no intent. prazosin increased to 5 mg and clonidine at HS to 0.4 mg for nightmares. 08/09- prazosin increased to 6 mg QHS. lidocaine patches DCed in favor of capsaicin cream. planning for DC next . I spent minutes with the patient and/or on the patient floor today, greater than?50% of which was spent counseling/coordinating care. Reason for contiued inpatient stay Substantial Risk for: harm to self
--- NOTE | 2021-08-09 15:05 | MHC.CLN ---
NUTRITION CONSULT VISITED WITH PATIENT IN HER ROOM. REPORTS VOMITING FOOD BUT ABLE TO TAKE SUPPLEMENT. PREFERS ENSURE TO GLUCERNA AND WOULD LIKE TID. PATIENT SUGGESTED THAT POTENTIAL CAUSAL OF VOMITING WAS STRESS. RECEPTIVE TO TALKING WITH THIS POLYMERIZATION OVEN TENDER. STATED NO TOMATOES/TOMATO PRODUCTS AND NO CITRUS. ABLE TO MAKE OWN CHOICES. ALERTED DINING SERVICES. DIET=REGULAR, ADDING ENSURE TID.
[2021-08-09] MEDS: Albuterol Sulfate 90 MCG 8 GM INHALER 2 PUFF INHALE (16:47)
[2021-08-09 21:32] LABS: Glucose, Whole Blood 118 mg/dL (60-115)
[2021-08-09] MEDS: Clotrimazole 1 % Cream 15 GM TUBE 1 APPL TOPICAL (21:58)
[2021-08-09] MEDS: Artificial Tears 15 ML DROPS 1 DROP EYE-BOTH (21:59)
[2021-08-09 22:24] VITALS: BP 125/72; PULSE 89; TEMP 36.6; O2SAT 96
[2021-08-09] MEDS: carBAMazepine ER 200 MG TAB.ER.12H 800 MG PO (22:34)
[2021-08-09] MEDS: cloNIDine HCL 0.2 MG TABLET 0.4 MG PO (22:35)
[2021-08-09] MEDS: Prazosin HCL 1 MG CAPSULE 6 MG PO (22:35)
[2021-08-09] MEDS: traZODone HCL 100 MG TABLET 200 MG PO (22:36)
[2021-08-10] MEDS: clonazePAM 0.5 MG TABLET PO (05:07)
[2021-08-10] MEDS: Omeprazole 20 MG CAPSULE.DR PO ×2 (05:07→15:49)
[2021-08-10] MEDS: Fluticasone/Vilanterol 100/25 BLST.W.DEV 1 PUFF INHALE (08:19)
[2021-08-10] MEDS: Prazosin HCL 1 MG CAPSULE 6 MG PO (08:20)
[2021-08-10] MEDS: carBAMazepine ER 200 MG TAB.ER.12H 600 MG PO (08:21)
[2021-08-10] MEDS: Famotidine 20 MG TABLET PO (08:21)
[2021-08-10] MEDS: Loratadine 10 MG TABLET PO (08:21)
[2021-08-10] MEDS: cloNIDine HCL 0.1 MG TABLET PO ×2 (08:21→15:49)
[2021-08-10] MEDS: metFORMIN HCl 500 MG TABLET PO ×2 (08:22→17:04)
[2021-08-10] MEDS: Multivitamin TABLET 1 TAB PO (08:22)
[2021-08-10] MEDS: Ibuprofen 200 MG TABLET PO ×2 (08:22→22:25)
[2021-08-10] MEDS: Cholecalciferol (Vitamin D3) 25 MCG TABLET PO (08:23)
[2021-08-10] MEDS: Lactase TABLET 1 TAB PO ×4 (08:23→22:24)
[2021-08-10] MEDS: Gabapentin 300 MG CAPSULE 600 MG PO ×3 (08:23→22:25)
[2021-08-10 08:30] VITALS: BP 136/74; PULSE 95; RESP 18; TEMP 36.5; O2SAT 96
[2021-08-10 08:45] LABS: Glucose, Whole Blood 101 mg/dL (60-115)
--- NOTE | 2021-08-10 12:36 | P.PNPSI_ITS ---
Subjective Subjective Date of Service: 08/10/21 Reason For Visit: Mood Disorder Interim History: pt reports she had a nightmares and flashback at 0500 today, which awakened her from her sleep. she reports that although she is feeling better, and no longer has SI, she continues to feel manicky still on the high side. she reports her dissociating is getting better, however. she describes a congenial conversation with her mother last night in which her tegretol level was discussed. they both agree it should be in the 10-12 range and its current 8+ is too low. she agrees to have her level drawn again on saturday. also agrees to further increase of prazosin to 7 mg tonight for nightmares and insomnia. per staff, anx 10, dep high yesterday. poor sleep 08/08 overnight. manicky panicky mood. angry with peer, dissociating. sensory overload. in the afternoon denied SI/SIBI. showered independently. Mental Status Exam Mental Status Exam Narrative: appropriately dressed and groomed. cooperative. no PMA/PMR. speech nml rate, incr amount, nml loudness, nml tone, decr latency. thoughts linear and logical. affect full range, normo-intense, non-labile, consistent with context. mood feeling good. better. anxiety still high. manicky still on the high side. no SI. no HI/AVH expressed. Diagnostics Vital Signs (24Hr): Vital Signs - 24 hr 08/09/21 22:24 08/10/21 08:30 Temperature 97.8 F 97.7 F Pulse Rate 89 95 Respiratory Rate 18 Blood Pressure 125/72 136/74 Pulse Oximetry 96 96 BMI result Body Mass Index 45.8 Labs Results: 08/09/21 08:12 08/09/21 08:12 Labs: Laboratory Results - last 48 hr 08/08/21 08/09/21 08/09/21 22:16 08:12 08:12 WBC 8.9 RBC 3.95 L Hgb 9.7 L Hct 32.5 L MCV 82.3 MCH 24.6 L MCHC 29.8 L RDW 16.4 H Plt Count 235 MPV 9.6 Immature Gran % (Auto) 2.5 H Neut % (Auto) 67.4 Lymph % (Auto) 21.5 [place] % (Auto) 6.0 Eos % (Auto) 2.4 Baso % (Auto) 0.2 Lymph # (Auto) 1.9 [place] # (Auto) 0.5 Eos # (Auto) 0.2 Baso # (Auto) 0.0 Abs Immat Gran (auto) 0.22 H Absolute Neuts (auto) 6.0 Absolute Nucleated RBC 0.000 Nucleated RBC % (auto) 0.0 Sodium 139 Potassium 4.4 Chloride 104 Carbon Dioxide 29 Anion Gap 10 L BUN 22 H Creatinine 0.66 Estim Creat Clear Calc 121.6 Estimated GFR > 60 POC Glucose 118 H Fasting Glucose 120 H Calcium 9.2 Total Bilirubin 0.2 Direct Bilirubin < 0.2 AST 13 ALT 13 Alkaline Phosphatase 109 Total Protein 6.6 Albumin 3.7 Carbamazepine 8.4 08/09/21 08/10/21 21:26 08:17 WBC RBC Hgb Hct MCV MCH MCHC RDW Plt Count MPV Immature Gran % (Auto) Neut % (Auto) Lymph % (Auto) [place] % (Auto) Eos % (Auto) Baso % (Auto) Lymph # (Auto) [place] # (Auto) Eos # (Auto) Baso # (Auto) Abs Immat Gran (auto) Absolute Neuts (auto) Absolute Nucleated RBC Nucleated RBC % (auto) Sodium Potassium Chloride Carbon Dioxide Anion Gap BUN Creatinine Estim Creat Clear Calc Estimated GFR POC Glucose 118 H 101 Fasting Glucose Calcium Total Bilirubin Direct Bilirubin AST ALT Alkaline Phosphatase Total Protein Albumin Carbamazepine Imaging Radiology Impressions: ITS Impressions Ankle X-Ray 08/07/21 15:04 IMPRESSION: No fracture or dislocation. Soft tissue swelling around the lateral ankle. Subcutaneous edema. Medications Medications Current Medications Acetaminophen (Acetaminophen 325 Mg Tablet) 650 mg PO Q6H PRN PRN Reason: Headache/Pain Mild Scale (1-3) Al Hydroxide/Mg Hydroxide (Magnesium Hydrox/Alum Hydrox 30 Ml Oral.Susp) 30 ml PO Q6H PRN PRN Reason: Heartburn/Nausea Last Admin: 08/09/21 13:31 Dose: 30 ml Documented by: Albuterol Sulfate (Albuterol Sulfate 90 Mcg 8 Gm Inhaler) 2 puff INHALE Q6H PRN PRN Reason: Wheezing Last Admin: 08/09/21 16:47 Dose: 2 puff Documented by: Artificial Tears (Artificial Tears 15 Ml Drops) 1 drop EYE-BOTH QID PRN PRN Reason: Dry Eye(S) Last Admin: 08/09/21 21:59 Dose: 1 drop Documented by: Calcium Carbonate (Calcium Carbonate 750 Mg Tab.Chew) 750 mg PO Q6H PRN PRN Reason: Heartburn Last Admin: 08/09/21 11:47 Dose: 750 mg Documented by: Capsaicin (Capsaicin 0.025% Cream 60 Gm Tube) 1 appl TOPICAL QID PRN; Protocol PRN Reason: Pain, Mild (Pain Scale 1-3) Carbamazepine (Carbamazepine Er 200 Mg Tab.Er.12h) 600 mg PO DAILY [facility]S [facility]CLUDE 234 BEDS AT [facility] Last Admin: 08/10/21 08:21 Dose: 600 mg Documented by: Carbamazepine (Carbamazepine Er 200 Mg Tab.Er.12h) 800 mg PO BEDTIME [facility] Last Admin: 08/09/21 22:34 Dose: 800 mg Documented by: Clonazepam (Clonazepam 0.5 Mg Tablet) 0.5 mg PO BID PRN PRN Reason: Anxiety Last Admin: 08/10/21 05:07 Dose: 0.5 mg Documented by: Clonidine HCl (Clonidine Hcl 0.2 Mg Tablet) 0.4 mg PO BEDTIME [facility]S [facility]CLUDE 234 BEDS AT [facility]; Protocol Last Admin: 08/09/21 22:35 Dose: 0.4 mg Documented by: Clonidine HCl (Clonidine Hcl 0.1 Mg Tablet) 0.1 mg PO BID@0900,1500 COUNTS [facility]CLUDE 234 BEDS AT [facility]; P rotocol Last Admin: 08/10/21 08:21 Dose: 0.1 mg Documented by: Clotrimazole (Clotrimazole 1 % Cream 15 Gm Tube) 1 appl TOPICAL BEDTIME [facility]; Protocol Last Admin: 08/09/21 21:58 Dose: 1 appl Documented by: Famotidine (Famotidine 20 Mg Tablet) 20 mg PO DAILY [facility]S [facility]CLUDE 234 BEDS AT [facility] Last Admin: 08/10/21 08:21 Dose: 20 mg Documented by: Fluticasone/Vilanterol (Fluticasone/Vilanterol 100/25 Blst.W.Dev) 1 puff INHALE RDAILY [facility]CLUDE 234 BEDS AT [facility] Last Admin: 08/10/21 08:19 Dose: 1 puff Documented by: Gabapentin (Gabapentin 300 Mg Capsule) 600 mg PO TID [facility]S [facility]CLUDE 234 BEDS AT [facility] Last Admin: 08/10/21 08:23 Dose: 600 mg Documented by: Hydroxyzine HCl (Hydroxyzine Hcl 50 Mg Tablet) 100 mg PO Q8H PRN PRN Reason: Anxiety Last Admin: 08/09/21 23:49 Dose: 100 mg Documented by: Ibuprofen (Ibuprofen 200 Mg Tablet) 200 mg PO BID [facility]S [facility]CLUDE 234 BEDS AT [facility] Last Admin: 08/10/21 08:22 Dose: 200 mg Documented by: Ibuprofen (Ibuprofen 600 Mg Tablet) 600 mg PO Q4H PRN PRN Reason: Pain, Mild (Pain Scale 1-3) Last Admin: 08/09/21 03:17 Dose: 600 mg Documented by: Lactase (Lactase Tablet) 1 tab PO QID [facility]CLUDE 234 BEDS AT [facility] Last Admin: 08/10/21 08:23 Dose: 1 tab Documented by: Lactic Acid (Ammonium Lactate 12 % Cream 140 Gm Tube) 1 appl TOPICAL DAILY [facility]S INCLUDE 234 BEDS AT [facility]; Protocol Last Admin: 08/10/21 10:05 Dose: Not Given Documented by: Loperamide HCl (Loperamide Hcl 2 Mg Capsule) 2 mg PO Q4H PRN PRN Reason: Diarrhea Loratadine (Loratadine 10 Mg Tablet) 10 mg PO DAILY [facility]S [facility]CLUDE 234 BEDS AT [facility] Last Admin: 08/10/21 08:21 Dose: 10 mg Documented by: Magnesium Hydroxide (Milk Of Magnesia 30 Ml Oral.Susp) 30 ml PO DAILY PRN PRN Reason: Constipation Metformin HCl (Metformin Hcl 500 Mg Tablet) 500 mg PO BIDWM COUNTS INCLUDE 234 BEDS AT [facility] Last Admin: 08/10/21 08:22 Dose: 500 mg Documented by: Multivitamins/Vitamin C (Multivitamin Tablet) 1 tab PO DAILY [facility]S [facility]CLUDE 234 BEDS AT [facility] Last Admin: 08/10/21 08:22 Dose: 1 tab Documented by: Omeprazole (Omeprazole 20 Mg Capsule.Dr) 20 mg PO BID@0630,1630 COUNTS INCLUDE 234 BEDS AT [facility] Last Admin: 08/10/21 05:07 Dose: 20 mg Documented by: Ondansetron HCl (Ondansetron Odt 4 Mg Tab.Rapdis) 4 mg TRANSLINGU Q8H PRN PRN Reason: Nausea and Vomiting Last Admin: 08/08/21 23:20 Dose: 4 mg Documented by: Prazosin HCl (Prazosin Hcl 1 Mg Capsule) 7 mg PO BID [facility]S [facility]CLUDE 234 BEDS AT [facility]; Protocol Tiotropium [place] (Tiotropium [place] 18 Mcg Cap.W.Dev) 1 puff INHALE RDAILY [facility]S INCLUDE 234 BEDS AT [facility] Last Admin: 08/10/21 08:23 Dose: 1 puff Documented by: Trazodone HCl (Trazodone Hcl 100 Mg Tablet) 200 mg PO BEDTIME [facility]S INCLUDE 234 BEDS AT [facility] Last Admin: 08/09/21 22:36 Dose: 200 mg Documented by: Trolamine Salicylate/Aloe Vera (Trolamine Salicylate 10%/Aloe Cream 35.4 Gm) 1 appl TOPICAL QID COUNTS INCLUDE 234 BEDS AT [facility] Last Admin: 08/10/21 08:26 Dose: 1 appl Documented by: Vitamin D (Cholecalciferol (Vitamin D3) 25 Mcg Tablet) 25 mcg PO DAILY [facility]S INCLUDE 234 BEDS AT [facility] Last Admin: 08/10/21 08:23 Dose: 25 mcg Documented by: Allergies Allergies Allergy/AdvReac Type Severity Reaction Status Date / Time Benzodiazepines Allergy Intermediate Irritable Verified 08/01/21 19:03 diazepam [From Valium] Allergy Intermediate Irritable Verified 08/01/21 19:02 sulfamethoxazole Allergy Intermediate Rash Verified 08/01/21 19:01 [From Bactrim] trimethoprim [From Bactrim] Allergy Intermediate Rash Verified 08/01/21 19:01 Assessment & Plan Assessment & Plan (1) Depression: Qualifiers: Active/Remission status: currently active Depression Type: major depressive disorder Major depression episode severity: moderate Major depression recurrence: recurrent Qualified Code(s): F33.1 - Major depressive disorder, recurrent, moderate Status: Acute Code(s): F32.A - Depression, unspecified Assessment and Plan: continue current regimen (2) Suicidal ideation: Status: Acute Code(s): R45.851 - Suicidal ideations Assessment and Plan: variable (3) Diabetes mellitus, type 2: Status: Acute Code(s): E11.9 - Type 2 diabetes mellitus without complications Assessment and Plan: continue current regimen. collect data. (4) Sleep apnea: Status: Acute Code(s): G47.30 - Sleep apnea, unspecified Assessment and Plan: CPAP while sleeping. Assessment and Plan: admit to M3, keep safe. continue outpt regimen. collect collateral from outpt providers. message left for Dr. Morris @[facility] [phone]. contact with [facility] staff 08/04, they will fax info. collateral collected from pt's mother 08/04 (supports narrative above re destabilization upon return from vacation, need for higher tegretol level. added pt recently feeling guilty about dietary indiscretion and misusing a cr edit card her mother had obtained for her). tegretol dosing increased from 600 BID at admission to 600/800. check level after about 5 days. 08/05/2021 Continue current regimen and plans with no changes today 08/06/2021 Continue current plans and regimen 08/07- pt reports SI, no plan or intent, nightmares related to past trauma. SIB urges but denies acting on urges. 08/08- reports SI, no intent. prazosin increased to 5 mg and clonidine at HS to 0.4 mg for nightmares. 08/09- prazosin increased to 6 mg QHS. lidocaine patches DCed in favor of capsaicin cream. planning for DC next . 08/10- prazosin increased to 7 mg QHS. first day without SI. planning for DC next . I spent minutes with the patient and/or on the patient floor today, greater than?50% of which was spent counseling/coordinating care. Reason for contiued inpatient stay Substantial Risk for: harm to self, inability to function and rapid decompensation
[2021-08-10] MEDS: Acetaminophen 325 MG TABLET 650 MG PO (15:39)
[2021-08-10 16:17] LABS: COVID-19 Test Negative (Negative)
[2021-08-10] MEDS: Albuterol Sulfate 90 MCG 8 GM INHALER 2 PUFF INHALE (17:53)
[2021-08-10 21:12] LABS: Glucose, Whole Blood 130 mg/dL (60-115)
[2021-08-10] MEDS: Clotrimazole 1 % Cream 15 GM TUBE 1 APPL TOPICAL (22:02)
[2021-08-10] MEDS: Artificial Tears 15 ML DROPS 1 DROP EYE-BOTH (22:02)
[2021-08-10] MEDS: Capsaicin 0.025% Cream 60 GM TUBE 1 APPL TOPICAL (22:02)
[2021-08-10 22:21] VITALS: BP 151/86; PULSE 89; TEMP 36.8; O2SAT 98
[2021-08-10] MEDS: cloNIDine HCL 0.2 MG TABLET 0.4 MG PO (22:24)
[2021-08-10] MEDS: traZODone HCL 100 MG TABLET 200 MG PO (22:25)
[2021-08-10] MEDS: carBAMazepine ER 200 MG TAB.ER.12H 800 MG PO (22:25)
[2021-08-10] MEDS: Prazosin HCL 1 MG CAPSULE 7 MG PO (22:26)
[2021-08-11] MEDS: Ibuprofen 600 MG TABLET PO ×2 (04:10→22:17)
[2021-08-11] MEDS: Capsaicin 0.025% Cream 60 GM TUBE 1 APPL TOPICAL ×2 (04:11→22:17)
[2021-08-11] MEDS: Omeprazole 20 MG CAPSULE.DR PO ×2 (04:16→16:06)
[2021-08-11] MEDS: clonazePAM 0.5 MG TABLET PO ×2 (04:16→17:56)
[2021-08-11 08:23] VITALS: BP 140/81; PULSE 83; RESP 18; TEMP 36.7; O2SAT 98
[2021-08-11] MEDS: Fluticasone/Vilanterol 100/25 BLST.W.DEV 1 PUFF INHALE (08:27)
[2021-08-11] MEDS: Prazosin HCL 1 MG CAPSULE 7 MG PO (08:28)
[2021-08-11] MEDS: Ammonium Lactate 12 % Cream 140 GM TUBE 1 APPL TOPICAL (08:28)
[2021-08-11] MEDS: metFORMIN HCl 500 MG TABLET PO ×2 (08:30→16:06)
[2021-08-11] MEDS: Famotidine 20 MG TABLET PO (08:30)
[2021-08-11] MEDS: Cholecalciferol (Vitamin D3) 25 MCG TABLET PO (08:30)
[2021-08-11] MEDS: cloNIDine HCL 0.1 MG TABLET PO ×2 (08:30→16:07)
[2021-08-11] MEDS: Loratadine 10 MG TABLET PO (08:31)
[2021-08-11] MEDS: Lactase TABLET 1 TAB PO ×4 (08:31→20:40)
[2021-08-11] MEDS: Multivitamin TABLET 1 TAB PO (08:31)
[2021-08-11] MEDS: Ibuprofen 200 MG TABLET PO ×2 (08:31→20:40)
[2021-08-11] MEDS: carBAMazepine ER 200 MG TAB.ER.12H 600 MG PO (08:31)
[2021-08-11] MEDS: Gabapentin 300 MG CAPSULE 600 MG PO ×3 (08:32→20:41)
[2021-08-11 10:01] LABS: Glucose, Whole Blood 111 mg/dL (60-115)
[2021-08-11] MEDS: hydrOXYzine HCL 50 MG TABLET 100 MG PO (10:21)
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
[2021-08-11] MEDS: Albuterol Sulfate 90 MCG 8 GM INHALER 2 PUFF INHALE (17:59)
--- NOTE | 2021-08-11 18:46 | PC.NURSE ---
At approximately 17:45 patient was in the milieu sitting in chair when she reported that she felt like she was about to have a seizure . Patient has a history of pseudo seizures. Patient was then lowered to the ground and began jerking body movements. Patient was assisted to her side by this RN and her head was supported. Episode lasted approximately 3 minutes. Vital signs post episode were 146/82 manual in upper left arm and 100 radial pulse manual. Patient was administered PRN Klopin. Nurse practitioner was notified and on the floor post episode. Patient was escorted to her room and rested quietly in bed for the remainder of the shift.
[2021-08-11 20:32] VITALS: BP 154/78; PULSE 94; TEMP 36.6; O2SAT 95
[2021-08-11 20:35] LABS: Glucose, Whole Blood 131 mg/dL (60-115)
[2021-08-11] MEDS: carBAMazepine ER 200 MG TAB.ER.12H 800 MG PO (20:40)
[2021-08-11] MEDS: cloNIDine HCL 0.2 MG TABLET 0.4 MG PO (20:40)
[2021-08-11] MEDS: traZODone HCL 100 MG TABLET 200 MG PO (20:41)
[2021-08-11] MEDS: Prazosin HCL 1 MG CAPSULE 8 MG PO (20:41)
[2021-08-11] MEDS: Clotrimazole 1 % Cream 15 GM TUBE 1 APPL TOPICAL (20:53)
[2021-08-12] MEDS: hydrOXYzine HCL 50 MG TABLET 100 MG PO ×2 (01:12→21:27)
[2021-08-12 08:15] VITALS: BP 136/81; PULSE 81; RESP 18; TEMP 36.8; O2SAT 95
[2021-08-12] MEDS: Gabapentin 300 MG CAPSULE 600 MG PO ×3 (08:29→20:30)
[2021-08-12] MEDS: Lactase TABLET 1 TAB PO ×4 (08:29→20:30)
[2021-08-12] MEDS: Cholecalciferol (Vitamin D3) 25 MCG TABLET PO (08:29)
[2021-08-12] MEDS: carBAMazepine ER 200 MG TAB.ER.12H 600 MG PO (08:29)
[2021-08-12] MEDS: Multivitamin TABLET 1 TAB PO (08:29)
[2021-08-12] MEDS: cloNIDine HCL 0.1 MG TABLET PO ×2 (08:31→15:39)
[2021-08-12] MEDS: Omeprazole 20 MG CAPSULE.DR PO ×2 (08:31→17:24)
[2021-08-12] MEDS: metFORMIN HCl 500 MG TABLET PO ×2 (08:31→17:24)
[2021-08-12] MEDS: Famotidine 20 MG TABLET PO (08:31)
[2021-08-12] MEDS: Ibuprofen 200 MG TABLET PO (08:31)
[2021-08-12] MEDS: Loratadine 10 MG TABLET PO (08:31)
[2021-08-12] MEDS: Fluticasone/Vilanterol 100/25 BLST.W.DEV 1 PUFF INHALE (08:32)
[2021-08-12] MEDS: Prazosin HCL 5 MG CAPSULE PO ×2 (08:42→20:31)
[2021-08-12] MEDS: Prazosin HCL 1 MG CAPSULE 3 MG PO ×2 (08:45→20:29)
[2021-08-12 08:53] LABS: Glucose, Whole Blood 127 mg/dL (60-115)
[2021-08-12] MEDS: Ammonium Lactate 12 % Cream 140 GM TUBE 1 APPL TOPICAL ×2 (13:07→15:36)
[2021-08-12 15:10] VITALS: BP 129/67; PULSE 91; RESP 18; TEMP 36.8; O2SAT 100
[2021-08-12] MEDS: Ibuprofen 600 MG TABLET PO (15:38)
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
[2021-08-12 17:21] LABS: Glucose, Whole Blood 128 mg/dL (60-115)
[2021-08-12 20:15] VITALS: BP 133/77; PULSE 93; RESP 16; TEMP 36.8; O2SAT 96
[2021-08-12] MEDS: carBAMazepine ER 200 MG TAB.ER.12H 800 MG PO (20:29)
[2021-08-12] MEDS: cloNIDine HCL 0.2 MG TABLET 0.4 MG PO (20:30)
[2021-08-12] MEDS: traZODone HCL 100 MG TABLET 200 MG PO (20:30)
[2021-08-12] MEDS: Ibuprofen 400 MG TABLET PO (20:30)
[2021-08-12] MEDS: Clotrimazole 1 % Cream 15 GM TUBE 1 APPL TOPICAL (20:33)
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
[2021-08-13 08:10] VITALS: PULSE 84; RESP 16; TEMP 36.6; O2SAT 96
[2021-08-13] MEDS: Prazosin HCL 1 MG CAPSULE 3 MG PO ×2 (08:16→20:46)
[2021-08-13] MEDS: Loratadine 10 MG TABLET PO (08:16)
[2021-08-13] MEDS: metFORMIN HCl 500 MG TABLET PO ×2 (08:17→17:05)
[2021-08-13] MEDS: carBAMazepine ER 200 MG TAB.ER.12H 600 MG PO (08:17)
[2021-08-13] MEDS: Prazosin HCL 5 MG CAPSULE PO ×2 (08:17→20:47)
[2021-08-13] MEDS: Lactase TABLET 1 TAB PO ×4 (08:17→20:48)
[2021-08-13] MEDS: Gabapentin 300 MG CAPSULE 600 MG PO ×3 (08:17→20:47)
[2021-08-13] MEDS: cloNIDine HCL 0.1 MG TABLET PO ×2 (08:18→14:36)
[2021-08-13] MEDS: Fluticasone/Vilanterol 100/25 BLST.W.DEV 1 PUFF INHALE (08:18)
[2021-08-13] MEDS: Cholecalciferol (Vitamin D3) 25 MCG TABLET PO (08:18)
[2021-08-13] MEDS: Ibuprofen 400 MG TABLET PO ×2 (08:18→20:48)
[2021-08-13] MEDS: Multivitamin TABLET 1 TAB PO (08:18)
[2021-08-13] MEDS: Omeprazole 20 MG CAPSULE.DR PO ×2 (08:18→16:27)
[2021-08-13] MEDS: Famotidine 20 MG TABLET PO (08:18)
[2021-08-13 08:20] LABS: Carbamazepine Tegretol 10.7 mcg/mL (5.0-12.0)
[2021-08-13] MEDS: Ammonium Lactate 12 % Cream 140 GM TUBE 1 APPL TOPICAL (08:20)
[2021-08-13 08:30] LABS: Glucose, Whole Blood 103 mg/dL (60-115)
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
[2021-08-13] MEDS: Calcium Carbonate 750 MG TAB.CHEW PO ×2 (14:35→20:47)
[2021-08-13 16:59] LABS: Glucose, Whole Blood 148 mg/dL (60-115)
[2021-08-13 20:45] VITALS: BP 165/83; PULSE 87; RESP 20; TEMP 36.8; O2SAT 97
[2021-08-13] MEDS: carBAMazepine ER 200 MG TAB.ER.12H 800 MG PO (20:47)
[2021-08-13] MEDS: cloNIDine HCL 0.2 MG TABLET 0.4 MG PO (20:47)
[2021-08-13] MEDS: traZODone HCL 100 MG TABLET 200 MG PO (20:47)
[2021-08-13] MEDS: Clotrimazole 1 % Cream 15 GM TUBE 1 APPL TOPICAL (20:49)
[2021-08-13] MEDS: hydrOXYzine HCL 50 MG TABLET 100 MG PO (22:39)
[2021-08-14 07:51] LABS: Glucose, Whole Blood 101 mg/dL (60-115)
[2021-08-14 08:00] VITALS: BP 132/67; PULSE 80; TEMP 36.6; O2SAT 94
[2021-08-14] MEDS: Fluticasone/Vilanterol 100/25 BLST.W.DEV 1 PUFF INHALE (08:13)
[2021-08-14] MEDS: Prazosin HCL 1 MG CAPSULE 3 MG PO ×2 (08:14→21:02)
[2021-08-14] MEDS: Gabapentin 300 MG CAPSULE 600 MG PO ×3 (08:14→21:02)
[2021-08-14] MEDS: Cholecalciferol (Vitamin D3) 25 MCG TABLET PO (08:15)
[2021-08-14] MEDS: metFORMIN HCl 500 MG TABLET PO ×2 (08:15→17:15)
[2021-08-14] MEDS: Ibuprofen 400 MG TABLET PO ×2 (08:15→21:03)
[2021-08-14] MEDS: Prazosin HCL 5 MG CAPSULE PO ×2 (08:15→21:02)
[2021-08-14] MEDS: Multivitamin TABLET 1 TAB PO (08:15)
[2021-08-14] MEDS: Lactase TABLET 1 TAB PO ×4 (08:16→21:03)
[2021-08-14] MEDS: carBAMazepine ER 200 MG TAB.ER.12H 800 MG PO ×2 (08:16→21:01)
[2021-08-14] MEDS: Omeprazole 20 MG CAPSULE.DR PO ×2 (08:17→15:31)
[2021-08-14] MEDS: cloNIDine HCL 0.1 MG TABLET PO ×2 (08:17→15:31)
[2021-08-14] MEDS: Famotidine 20 MG TABLET PO (08:17)
[2021-08-14] MEDS: Loratadine 10 MG TABLET PO (08:17)
[2021-08-14] MEDS: Acetaminophen 325 MG TABLET 650 MG PO (12:25)
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
[2021-08-14] MEDS: hydrOXYzine HCL 50 MG TABLET 100 MG PO (16:34)
[2021-08-14 18:00] VITALS: BP 122/71; PULSE 91; TEMP 36.6; O2SAT 97
[2021-08-14 20:31] LABS: Glucose, Whole Blood 106 mg/dL (60-115)
[2021-08-14 20:58] VITALS: BP 145/91; PULSE 88; RESP 18; TEMP 36.8; O2SAT 97
[2021-08-14] MEDS: traZODone HCL 100 MG TABLET 200 MG PO (21:02)
[2021-08-14] MEDS: cloNIDine HCL 0.2 MG TABLET 0.4 MG PO (21:03)
[2021-08-14] MEDS: Clotrimazole 1 % Cream 15 GM TUBE 1 APPL TOPICAL (21:04)
[2021-08-14] MEDS: Calcium Carbonate 750 MG TAB.CHEW PO (21:07)
[2021-08-15] MEDS: metFORMIN HCl 500 MG TABLET PO (08:11)
[2021-08-15] MEDS: Famotidine 20 MG TABLET PO (08:11)
[2021-08-15] MEDS: carBAMazepine ER 200 MG TAB.ER.12H 800 MG PO (08:11)
[2021-08-15] MEDS: Loratadine 10 MG TABLET PO (08:11)
[2021-08-15 08:12] LABS: Glucose, Whole Blood 97 mg/dL (60-115)
[2021-08-15] MEDS: Lactase TABLET 1 TAB PO (08:12)
[2021-08-15] MEDS: Omeprazole 20 MG CAPSULE.DR PO (08:12)
[2021-08-15] MEDS: Multivitamin TABLET 1 TAB PO (08:12)
[2021-08-15] MEDS: Cholecalciferol (Vitamin D3) 25 MCG TABLET PO (08:12)
[2021-08-15] MEDS: Ibuprofen 400 MG TABLET PO (08:12)
[2021-08-15] MEDS: cloNIDine HCL 0.1 MG TABLET PO (08:20)
[2021-08-15] MEDS: Prazosin HCL 1 MG CAPSULE 3 MG PO (08:20)
[2021-08-15] MEDS: Prazosin HCL 5 MG CAPSULE PO (08:20)
[2021-08-15] MEDS: Fluticasone/Vilanterol 100/25 BLST.W.DEV 1 PUFF INHALE (08:21)
[2021-08-15] MEDS: Gabapentin 300 MG CAPSULE 600 MG PO (08:24)
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
--- NOTE | 2021-08-15 11:01 | PC.NURSE ---
Patient alert and oriented. Presents neatly groomed, pleasant and cooperative. Patient expresses readiness to leave [facility] and return to [facility]. All morning medications taken. Discharge instructions reviewed with patient and undertanding was verbalized. All belongings were accounted for as well as home medications. Patient was escorted from unit to [facility] entrance by two staff members where her parents were waiting to pick her up.
== END 2021-08-15 10:30 | disposition home or self-care (01) | DRG 881 ==
LOC: HO.ED 08-02 08:41 → HO.PADLT16 08-02 20:23
PROVIDERS: Nurse Practitioner Family; Physician Assistant; Psychiatry & Neurology Psychiatry; Admitting Provider Psychiatry & Neurology Psychiatry; Emergency Provider Student in an Organized Health Care Education/Training Program; Visit Provider Psychiatry & Neurology Psychiatry
DX: F32.A Depression, unspecified (principal); R45.851 Suicidal ideations; K21.9 Gastro-esophageal reflux disease without esophagitis; E11.9 Type 2 diabetes mellitus without complications; G47.30 Sleep apnea, unspecified; Z20.822 Contact with and (suspected) exposure to COVID-19; Z88.2 Allergy status to sulfonamides; Z79.51 Long term (current) use of inhaled steroids; Z79.84 Long term (current) use of oral hypoglycemic drugs; Z79.899 Other long term (current) drug therapy
CPT/HCPCS: 36415; 73600; 80048; 80053; 80076; 80143; 80156; 80179; 80307; 81001; 82077; 82947; 85025; 87635; 90686; 93005; 94660; 99285

== ENCOUNTER 2022-01-16 22:34 | Inpatient (IN) | payer OTHER, SELFPAY ==
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
[2022-01-16 23:10] VITALS: BP 157/94; PULSE 95; TEMP 36.7; O2SAT 97
[2022-01-16 23:12] VITALS: BMI 45.6
[2022-01-16] MEDS: Famotidine 20 MG TABLET PO (23:21)
[2022-01-16] MEDS: clonazePAM 0.5 MG TABLET PO (23:21)
[2022-01-16] MEDS: carBAMazepine ER 200 MG TAB.ER.12H 600 MG PO (23:21)
[2022-01-16] MEDS: Ondansetron ODT 4 MG TAB.RAPDIS TRANSLINGU (23:46)
[2022-01-17] MEDS: Prazosin HCL 1 MG CAPSULE 4 MG PO ×2 (00:11→22:26)
[2022-01-17] MEDS: traZODone HCL 100 MG TABLET 200 MG PO ×2 (00:12→22:28)
[2022-01-17] MEDS: QUEtiapine Fumarate 50 MG TABLET PO (00:12)
[2022-01-17] MEDS: Omeprazole 20 MG CAPSULE.DR PO ×2 (07:46→17:27)
[2022-01-17 08:00] VITALS: BP 122/78; PULSE 80; RESP 20; TEMP 37.1; O2SAT 96
[2022-01-17] MEDS: Cholecalciferol (Vitamin D3) 25 MCG TABLET 50 MCG PO (08:38)
[2022-01-17] MEDS: carBAMazepine ER 200 MG TAB.ER.12H 600 MG PO ×2 (08:39→22:27)
[2022-01-17] MEDS: Multivitamin TABLET 1 TAB PO (08:39)
[2022-01-17] MEDS: Acetaminophen 325 MG TABLET 650 MG PO (08:39)
[2022-01-17 09:06] LABS: Glucose, Whole Blood 93 mg/dL (60-115)
[2022-01-17] MEDS: Albuterol Sulfate 90 MCG 8 GM INHALER 2 PUFF INHALE ×2 (10:37→12:40)
[2022-01-17] MEDS: clonazePAM 0.5 MG TABLET PO ×2 (10:37→22:28)
[2022-01-17 12:41] VITALS: PULSE 92; RESP 20; O2SAT 95
[2022-01-17 13:19] LABS: Glucose, Whole Blood 116 mg/dL (60-115)
[2022-01-17] MEDS: Ondansetron ODT 4 MG TAB.RAPDIS TRANSLINGU (14:21)
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
[2022-01-17] MEDS: Artificial Tears 15 ML DROPS 1 DROP EYE-BOTH ×2 (17:27→22:21)
[2022-01-17] MEDS: Ondansetron ODT 4 MG TAB.RAPDIS 8 MG TRANSLINGU (17:27)
[2022-01-17 17:33] LABS: Glucose, Whole Blood 109 mg/dL (60-115)
[2022-01-17 21:45] LABS: Glucose, Whole Blood 106 mg/dL (60-115)
[2022-01-17 22:15] VITALS: BP 137/78; PULSE 78; TEMP 36.8; O2SAT 96
[2022-01-17] MEDS: Bacitracin Oint 14 GM TUBE 1 APPL TOPICAL (22:22)
[2022-01-17] MEDS: Clotrimazole 1 % Cream 15 GM TUBE 1 APPL TOPICAL (22:22)
[2022-01-17] MEDS: QUEtiapine Fumarate 100 MG TABLET PO (22:27)
[2022-01-17] MEDS: Famotidine 20 MG TABLET PO (22:27)
[2022-01-17] MEDS: Gabapentin 300 MG CAPSULE PO (22:28)
--- NOTE | 2022-01-18 01:27 | PC.ADMIT ---
01/16/22 admission note-patient was an admission from [facility] referred by [facility] [employer] [facility]. patient is know to [facility] from a previous admission in July. Nurse to nurse, collateral information obtained prior to admission. Patient with multiple medical issues that are known and unchanged since previous admission. no drug or alcohol issues. does endorse feeling overwhelmed at half-way due to peers she lives with and difficult relationship with her parents that are identified as her guardian. superficial lacerations to both forearms. medication reconciliation completed. lee is a good historian.
[2022-01-18] MEDS: hydrOXYzine HCL 50 MG TABLET 100 MG PO ×3 (02:59→17:28)
[2022-01-18] MEDS: Ibuprofen 600 MG TABLET PO ×2 (03:00→08:59)
[2022-01-18 06:00] VITALS: BP 120/70; PULSE 77; RESP 18; TEMP 36.7; O2SAT 99
[2022-01-18] MEDS: Omeprazole 20 MG CAPSULE.DR PO ×2 (06:40→17:27)
[2022-01-18] MEDS: clonazePAM 0.5 MG TABLET PO (06:40)
[2022-01-18 07:00] VITALS: BMI 45.8
[2022-01-18] MEDS: carBAMazepine ER 200 MG TAB.ER.12H 600 MG PO ×2 (08:59→21:57)
[2022-01-18] MEDS: Gabapentin 300 MG CAPSULE PO ×2 (09:00→21:58)
[2022-01-18] MEDS: Loratadine 10 MG TABLET PO (09:00)
[2022-01-18] MEDS: Ondansetron ODT 4 MG TAB.RAPDIS 8 MG TRANSLINGU ×3 (09:00→17:28)
[2022-01-18] MEDS: Cholecalciferol (Vitamin D3) 25 MCG TABLET 50 MCG PO (09:00)
[2022-01-18] MEDS: Multivitamin TABLET 1 TAB PO (09:01)
[2022-01-18] MEDS: Fluticasone/Vilanterol 100/25 BLST.W.DEV 1 PUFF INHALE (09:07)
[2022-01-18 09:12] LABS: Glucose, Whole Blood 108 mg/dL (60-115)
[2022-01-18] MEDS: Artificial Tears 15 ML DROPS 1 DROP EYE-BOTH ×3 (11:47→22:01)
[2022-01-18] MEDS: Bacitracin Oint 14 GM TUBE 1 APPL TOPICAL ×2 (11:48→22:01)
[2022-01-18] MEDS: metFORMIN HCl 500 MG TABLET PO ×2 (14:55→21:58)
--- NOTE | 2022-01-18 16:15 | HO.PSYCHPN ---
Subjective Subjective Date of Service: 01/18/22 Reason For Visit: Bipolar 1 Disorder Interim History: calm, cooperative. wordy. focused on conflict with her mother, somatic complaints. reporting intermittent SI/SIBI, depressed mood. asking for reg diet, agrees to go on metformin again. per staff, FSBS 108, 106, 104, 116. attending groups, c/o left foot pain and swelling (no swelling noted by staff). slept most of the night. Mental Status Exam Mental Status Exam Narrative: appropriately dressed and groomed. cooperative. no PMA/PMR. speech nml rate, incr amount, nml loudness, nml tone, decr latency. thoughts linear and logical. affect constricted, normo-intense, non-labile, consistent with content of speech. mood depressed. intermittent SI/SIBI. no HI/AVH. Diagnostics Vital Signs (24Hr): Vital Signs - 24 hr 01/17/22 22:15 01/18/22 06:00 Temperature 98.2 F 98.0 F Pulse Rate 78 77 Respiratory Rate 18 Blood Pressure 137/78 120/70 Pulse Oximetry 96 99 Oxygen Delivery Method Room Air Room Air BMI result Body Mass Index 45.8 Labs Labs: Laboratory Results - last 48 hr 01/17/22 01/17/22 01/17/22 08:53 13:15 17:30 POC Glucose 93 116 H 109 01/17/22 01/18/22 21:40 08:56 POC Glucose 106 108 Medications Medications Current Medications Acetaminophen (Acetaminophen 325 Mg Tablet) 650 mg PO Q6H PRN PRN Reason: Headache/Pain Mild Scale (1-3) Last Admin: 01/17/22 08:39 Dose: 650 mg Al Hydroxide/Mg Hydroxide (Magnesium Hydrox/Alum Hydrox 30 Ml Oral.Susp) 30 ml PO Q6H PRN PRN Reason: Heartburn/Nausea Albuterol Sulfate (Albuterol Sulfate 90 Mcg 8 Gm Inhaler) 2 puff INHALE Q4H PRN PRN Reason: Wheezing Last Admin: 01/17/22 12:40 Dose: 2 puff Albuterol/Ipratropium (Albuterol/Iprat 2.5/0.5mg 3 Ml Ampul.Neb) 3 ml INHALE Q4H PRN PRN Reason: Shortness of Breath Artificial Tears (Artificial Tears 15 Ml Drops) 1 drop EYE-BOTH QID [facility] Last Admin: 01/18/22 14:55 Dose: 1 drop Bacitracin (Bacitracin Oint 14 Gm Tube) 1 appl TOPICAL BID [facility]; Protocol Stop: 01/21/22 09:00 Last Admin: 01/18/22 11:48 Dose: 1 appl Calcium Carbonate (Calcium Carbonate 500 Mg Tablet) 1,000 mg PO BID [facility] Last Admin: 01/18/22 09:00 Dose: 1,000 mg Carbamazepine (Carbamazepine Er 200 Mg Tab.Er.12h) 600 mg PO BID [facility] Last Admin: 01/18/22 08:59 Dose: 600 mg Clonazepam (Clonazepam 0.5 Mg Tablet) 0.5 mg PO BID PRN PRN Reason: anxiety Last Admin: 01/18/22 06:40 Dose: 0.5 mg Clotrimazole (Clotrimazole 1 % Cream 15 Gm Tube) 1 appl TOPICAL BEDTIME [facility] Last Admin: 01/17/22 22:22 Dose: 1 appl Dicyclomine HCl (Dicyclomine Hcl 10 Mg Capsule) 10 mg PO QIDACHS PRN PRN Reason: IBS Famotidine (Famotidine 20 Mg Tablet) 20 mg PO BEDTIME [facility] Last Admin: 01/17/22 22:27 Dose: 20 mg Fluticasone/Vilanterol (Fluticasone/Vilanterol 100/25 Blst.W.Dev) 1 puff INHALE RDAILY [facility] Last Admin: 01/18/22 09:07 Dose: 1 puff Gabapentin (Gabapentin 300 Mg Capsule) 300 mg PO BID [facility] Last Admin: 01/18/22 09:00 Dose: 300 mg Hydroxyzine HCl (Hydroxyzine Hcl 50 Mg Tablet) 100 mg PO QID PRN PRN Reason: Anxiety Last Admin: 01/18/22 11:46 Dose: 100 mg Ibuprofen (Ibuprofen 600 Mg Tablet) 600 mg PO Q6H PRN PRN Reason: Pain, Moderate (Pain Scale 4-6 Last Admin: 01/18/22 08:59 Dose: 600 mg Lactase (Lactase Tablet) 2 tab PO TIDWM PRN PRN Reason: lactose intolerance Loratadine (Loratadine 10 Mg Tablet) 10 mg PO DAILY [facility] Last Admin: 01/18/22 09:00 Dose: 10 mg Magnesium Hydroxide (Milk Of Magnesia 30 Ml Oral.Susp) 30 ml PO DAILY PRN PRN Reason: Constipation Metformin HCl (Metformin Hcl 500 Mg Tablet) 500 mg PO BID [facility] Last Admin: 01/18/22 14:55 Dose: 500 mg Multivitamins/Vitamin C (Multivitamin Tablet) 1 tab PO DAILY [facility] Last Admin: 01/18/22 15:48 Dose: Not Given Omeprazole (Omeprazole 20 Mg Capsule.Dr) 20 mg PO BID@0630,1630 [facility] Last Admin: 01/18/22 15:48 Dose: Not Given Ondansetron HCl (Ondansetron Odt 4 Mg Tab.Rapdis) 8 mg TRANSLINGU TIDWM [facility] Last Admin: 01/18/22 13:44 Dose: 8 mg Prazosin HCl (Prazosin Hcl 1 Mg Capsule) 4 mg PO BEDTIME [facility]; Protocol Last Admin: 01/17/22 22:26 Dose: 4 mg Quetiapine Fumarate (Quetiapine Fumarate 100 Mg Tablet) 100 mg PO BEDTIME [facility] Last Admin: 01/17/22 22:27 Dose: 100 mg Trazodone HCl (Trazodone Hcl 100 Mg Tablet) 200 mg PO BEDTIME [facility] Last Admin: 01/17/22 22:28 Dose: 200 mg Vitamin D (Cholecalciferol (Vitamin D3) 25 Mcg Tablet) 50 mcg PO DAILY [facility] Last Admin: 01/18/22 09:00 Dose: 50 mcg Allergies Allergies Allergy/AdvReac Type Severity Reaction Status Date / Time Benzodiazepines Allergy Intermediate Irritable Verified 08/01/21 19:03 diazepam [From Valium] Allergy Intermediate Irritable Verified 08/01/21 19:02 sulfamethoxazole Allergy Intermediate Rash Verified 08/01/21 19:01 [From Bactrim] trimethoprim [From Bactrim] Allergy Intermediate Rash Verified 08/01/21 19:01 Assessment & Plan Assessment & Plan (1) Bipolar disorder: Qualifiers: Active/Remission status: currently active Current bipolar episode type: depressed Current episode severity: moderate Qualified Code(s): F31.32 - Bipolar disorder, current episode depressed, moderate Status: Acute Code(s): F31.9 - Bipolar disorder, unspecified Plan continue home meds. added bacitracin for 5 days. explore housing situation/options with caregivers. stabilize. discharge to home once stabilized. I spent ___25___ minutes with the patient and/or on the patient floor today, greater than?50% of which was spent counseling/coordinating care. Reason for contiued inpatient stay Substantial Risk for: harm to self, inability to function and rapid decompensation
[2022-01-18 18:00] VITALS: BP 117/88; PULSE 82; TEMP 36.5; O2SAT 96
[2022-01-18] MEDS: QUEtiapine Fumarate 100 MG TABLET PO (21:57)
[2022-01-18] MEDS: traZODone HCL 100 MG TABLET 200 MG PO (21:58)
[2022-01-18] MEDS: Prazosin HCL 1 MG CAPSULE 4 MG PO (21:58)
[2022-01-18] MEDS: Famotidine 20 MG TABLET PO (22:00)
[2022-01-18] MEDS: Clotrimazole 1 % Cream 15 GM TUBE 1 APPL TOPICAL (22:01)
[2022-01-18] MEDS: Acetaminophen 325 MG TABLET 650 MG PO (22:16)
[2022-01-19] MEDS: hydrOXYzine HCL 50 MG TABLET 100 MG PO ×3 (04:09→17:11)
[2022-01-19 08:40] LABS: Glucose, Whole Blood 91 mg/dL (60-115)
[2022-01-19 08:51] VITALS: BP 130/75; PULSE 84; RESP 18; TEMP 36.5; O2SAT 97
[2022-01-19] MEDS: Ondansetron ODT 4 MG TAB.RAPDIS 8 MG TRANSLINGU ×3 (09:02→17:49)
[2022-01-19] MEDS: Multivitamin TABLET 1 TAB PO (09:02)
[2022-01-19] MEDS: metFORMIN HCl 500 MG TABLET PO ×2 (09:02→21:19)
[2022-01-19] MEDS: Cholecalciferol (Vitamin D3) 25 MCG TABLET 50 MCG PO (09:03)
[2022-01-19] MEDS: Fluticasone/Vilanterol 100/25 BLST.W.DEV 1 PUFF INHALE (09:03)
[2022-01-19] MEDS: carBAMazepine ER 200 MG TAB.ER.12H 600 MG PO ×2 (09:03→21:17)
[2022-01-19] MEDS: Loratadine 10 MG TABLET PO (09:03)
[2022-01-19] MEDS: Omeprazole 20 MG CAPSULE.DR PO ×2 (09:03→17:12)
[2022-01-19] MEDS: Gabapentin 300 MG CAPSULE PO ×2 (09:03→21:19)
[2022-01-19] MEDS: Artificial Tears 15 ML DROPS 1 DROP EYE-BOTH ×4 (09:04→21:15)
[2022-01-19 09:30] LABS: Anion Gap 10 (12-20); Blood Urea Nitrogen 19 mg/dL (9-16); Calcium 8.7 mg/dL (8.4-10.2); Carbon Dioxide 30 mmol/L (22-29); Chloride 102 mmol/L (96-108); Creatinine Clr Calc Pharmacy 114.6; Estimated Glomerular Filt Rate > 60; Glucose Random 93 mg/dL (60-115); Potassium 4.5 mmol/L (3.3-5.1); Sodium 137 mmol/L (135-145)
[2022-01-19] MEDS: clonazePAM 0.5 MG TABLET PO (12:53)
--- NOTE | 2022-01-19 14:52 | P.PNPSI_ITS ---
Subjective Subjective Date of Service: 01/19/22 Reason For Visit: Bipolar 1 Disorder Subjective Notes: Conditional Voluntary Interim History: Pt reports struggling with intermittent suicidal thoughts. She denies any plan or intent to hurt herself. She reports sleeping better. She endorses severe depression but same time affect brightens up significantly when telling this advertising copy writer that she spoke with mom last night and is looking forward to trip to [place] in few weeks, she states we're going to all [address]! Per nursing, pt visible on the unit, ambulating with walker, no behavioral concerns. Medication Compliance: Yes Side effects from medications: No Mental Status Exam Mental Status Exam Narrative: appropriately dressed and groomed. cooperative. no PMA/PMR. speech nml rate, incr amount, nml loudness, nml tone, decr latency. thoughts linear and logical. affect constricted, normo-intense, non-labile, consistent with content of speech. mood depressed. intermittent SI/SIBI. no HI/AVH. Diagnostics Vital Signs (24Hr): Vital Signs - 24 hr 01/18/22 18:00 01/19/22 08:51 Temperature 97.7 F 97.7 F Pulse Rate 82 84 Respiratory Rate 18 Blood Pressure 117/88 130/75 Pulse Oximetry 96 97 Oxygen Delivery Method Room Air Room Air BMI result Body Mass Index 45.8 Labs Results: 01/19/22 08:54 Labs: Laboratory Results - last 48 hr 01/17/22 01/17/22 01/18/22 17:30 21:40 08:56 Sodium Potassium Chloride Carbon Dioxide Anion Gap BUN Creatinine Estim Creat Clear Calc Estimated GFR POC Glucose 109 106 108 Random Glucose Calcium 01/19/22 01/19/22 08:31 08:54 Sodium 137 Potassium 4.5 Chloride 102 Carbon Dioxide 30 H Anion Gap 10 L BUN 19 H Creatinine 0.70 Estim Creat Clear Calc 114.6 Estimated GFR > 60 POC Glucose 91 Random Glucose 93 Calcium 8.7 Medications Medications Current Medications Acetaminophen (Acetaminophen 325 Mg Tablet) 650 mg PO Q6H PRN PRN Reason: Headache/Pain Mild Scale (1-3) Last Admin: 01/18/22 22:16 Dose: 650 mg Al Hydroxide/Mg Hydroxide (Magnesium Hydrox/Alum Hydrox 30 Ml Oral.Susp) 30 ml PO Q6H PRN PRN Reason: Heartburn/Nausea Albuterol Sulfate (Albuterol Sulfate 90 Mcg 8 Gm Inhaler) 2 puff INHALE Q4H PRN PRN Reason: Wheezing Last Admin: 01/17/22 12:40 Dose: 2 puff Albuterol/Ipratropium (Albuterol/Iprat 2.5/0.5mg 3 Ml Ampul.Neb) 3 ml INHALE Q4H PRN PRN Reason: Shortness of Breath Artificial Tears (Artificial Tears 15 Ml Drops) 1 drop EYE-BOTH QID [facility] Last Admin: 01/19/22 12:54 Dose: 1 drop Bacitracin (Bacitracin Oint 14 Gm Tube) 1 appl TOPICAL BID [facility]; Protocol Stop: 01/21/22 09:00 Last Admin: 01/19/22 10:27 Dose: Not Given Calcium Carbonate (Calcium Carbonate 500 Mg Tablet) 1,000 mg PO BID [facility] Last Admin: 01/19/22 09:03 Dose: 1,000 mg Carbamazepine (Carbamazepine Er 200 Mg Tab.Er.12h) 600 mg PO BID [facility] Last Admin: 01/19/22 09:03 Dose: 600 mg Clonazepam (Clonazepam 0.5 Mg Tablet) 0.5 mg PO BID PRN PRN Reason: anxiety Last Admin: 01/19/22 12:53 Dose: 0.5 mg Clotrimazole (Clotrimazole 1 % Cream 15 Gm Tube) 1 appl TOPICAL BEDTIME [facility] Last Admin: 01/18/22 22:01 Dose: 1 appl Dicyclomine HCl (Dicyclomine Hcl 10 Mg Capsule) 10 mg PO QIDACHS PRN PRN Reason: IBS Famotidine (Famotidine 20 Mg Tablet) 20 mg PO BEDTIME [facility] Last Admin: 01/18/22 22:00 Dose: 20 mg Fluticasone/Vilanterol (Fluticasone/Vilanterol 100/25 Blst.W.Dev) 1 puff INHALE RDAILY [facility] Last Admin: 01/19/22 09:03 Dose: 1 puff Gabapentin (Gabapentin 300 Mg Capsule) 300 mg PO BID [facility] Last Admin: 01/19/22 09:03 Dose: 300 mg Hydroxyzine HCl (Hydroxyzine Hcl 50 Mg Tablet) 100 mg PO QID PRN PRN Reason: Anxiety Last Admin: 01/19/22 11:12 Dose: 100 mg Ibuprofen (Ibuprofen 600 Mg Tablet) 600 mg PO Q6H PRN PRN Reason: Pain, Moderate (Pain Scale 4-6 Last Admin: 01/18/22 08:59 Dose: 600 mg Lactase (Lactase Tablet) 2 tab PO TIDWM PRN PRN Reason: lactose intolerance Loratadine (Loratadine 10 Mg Tablet) 10 mg PO DAILY [facility] Last Admin: 01/19/22 09:03 Dose: 10 mg Magnesium Hydroxide (Milk Of Magnesia 30 Ml Oral.Susp) 30 ml PO DAILY PRN PRN Reason: Constipation Metformin HCl (Metformin Hcl 500 Mg Tablet) 500 mg PO BID [facility] Last Admin: 01/19/22 09:02 Dose: 500 mg Multivitamins/Vitamin C (Multivitamin Tablet) 1 tab PO DAILY [facility] Last Admin: 01/19/22 09:02 Dose: 1 tab Omeprazole (Omeprazole 20 Mg Capsule.Dr) 20 mg PO BID@0630,1630 [facility] Last Admin: 01/19/22 09:03 Dose: 20 mg Ondansetron HCl (Ondansetron Odt 4 Mg Tab.Rapdis) 8 mg TRANSLINGU TIDWM [facility] Last Admin: 01/19/22 12:49 Dose: 8 mg Prazosin HCl (Prazosin Hcl 1 Mg Capsule) 4 mg PO BEDTIME [facility]; Protocol Last Admin: 01/18/22 21:58 Dose: 4 mg Quetiapine Fumarate (Quetiapine Fumarate 100 Mg Tablet) 100 mg PO BEDTIME [facility] Last Admin: 01/18/22 21:57 Dose: 100 mg Trazodone HCl (Trazodone Hcl 100 Mg Tablet) 200 mg PO BEDTIME [facility] Last Admin: 01/18/22 21:58 Dose: 200 mg Vitamin D (Cholecalciferol (Vitamin D3) 25 Mcg Tablet) 50 mcg PO DAILY [facility] Last Admin: 01/19/22 09:03 Dose: 50 mcg Allergies Allergies Allergy/AdvReac Type Severity Reaction Status Date / Time Benzodiazepines Allergy Intermediate Irritable Verified 08/01/21 19:03 diazepam [From Valium] Allergy Intermediate Irritable Verified 08/01/21 19:02 sulfamethoxazole Allergy Intermediate Rash Verified 08/01/21 19:01 [From Bactrim] trimethoprim [From Bactrim] Allergy Intermediate Rash Verified 08/01/21 19:01 Assessment & Plan Assessment & Plan (1) Bipolar disorder: Qualifiers: Active/Remission status: currently active Current bipolar episode type: depressed Current episode severity: moderate Qualified Code(s): F31.32 - Bipolar disorder, current episode depressed, moderate Status: Acute Code(s): F31.9 - Bipolar disorder, unspecified Plan continue home meds. added bacitracin for 5 days. explore housing situation/options with caregivers. stabilize. discharge to home once stabilized. 01/19 continue current medications, SW working on referral to [facility]. I spent minutes with the patient and/or on the patient floor today, greater than?50% of which was spent counseling/coordinating care. Reason for contiued inpatient stay Substantial Risk for: harm to self
[2022-01-19 21:15] VITALS: BP 130/75; PULSE 86; RESP 18; TEMP 36.6; O2SAT 96
[2022-01-19] MEDS: Bacitracin Oint 14 GM TUBE 1 APPL TOPICAL (21:15)
[2022-01-19] MEDS: Clotrimazole 1 % Cream 15 GM TUBE 1 APPL TOPICAL (21:16)
[2022-01-19] MEDS: QUEtiapine Fumarate 100 MG TABLET PO (21:17)
[2022-01-19] MEDS: traZODone HCL 100 MG TABLET 200 MG PO (21:18)
[2022-01-19] MEDS: Famotidine 20 MG TABLET PO (21:19)
[2022-01-19] MEDS: Prazosin HCL 1 MG CAPSULE 4 MG PO (21:19)
[2022-01-20] MEDS: hydrOXYzine HCL 50 MG TABLET 100 MG PO ×3 (02:46→15:05)
[2022-01-20] MEDS: Ibuprofen 600 MG TABLET PO ×2 (02:46→09:04)
[2022-01-20] MEDS: clonazePAM 0.5 MG TABLET PO (02:46)
[2022-01-20] MEDS: Omeprazole 20 MG CAPSULE.DR PO ×2 (06:47→17:34)
[2022-01-20 09:00] VITALS: BP 122/64; PULSE 90; RESP 16; TEMP 36.6; O2SAT 98
[2022-01-20] MEDS: carBAMazepine ER 200 MG TAB.ER.12H 600 MG PO ×2 (09:00→21:13)
[2022-01-20] MEDS: Multivitamin TABLET 1 TAB PO (09:01)
[2022-01-20] MEDS: metFORMIN HCl 500 MG TABLET PO ×2 (09:01→21:15)
[2022-01-20] MEDS: Cholecalciferol (Vitamin D3) 25 MCG TABLET 50 MCG PO (09:01)
[2022-01-20] MEDS: Ondansetron ODT 4 MG TAB.RAPDIS 8 MG TRANSLINGU ×3 (09:03→17:35)
[2022-01-20] MEDS: Gabapentin 300 MG CAPSULE PO ×2 (09:04→21:15)
[2022-01-20] MEDS: Loratadine 10 MG TABLET PO (09:04)
[2022-01-20] MEDS: Artificial Tears 15 ML DROPS 1 DROP EYE-BOTH ×3 (09:05→21:18)
[2022-01-20 09:11] LABS: Glucose, Whole Blood 90 mg/dL (60-115)
[2022-01-20] MEDS: Dicyclomine HCl 10 MG CAPSULE PO ×3 (13:57→21:17)
--- NOTE | 2022-01-20 14:27 | P.PNPSI_ITS ---
Subjective Subjective Date of Service: 01/20/22 Reason For Visit: Bipolar 1 Disorder Subjective Notes: Conditional Voluntary Interim History: Patient well known to group underwriter as group underwriter is patient's outpatient psychiatrist. Arpita has not been doing well for the last number of months in and out of hospital multiple ED evaluations. She does have a history of a TBI. Also has established history of pseudoseizures and can be somatic in nature. Elderly mother is guardian and based in [place]. Has [employer] support. Lives in a alf. Main stressors appear to be current alf living environment and potential change might be needed. Also elderly parents who are trying to plan for the future and find a guardian through legal services as there are no f amily members or friends that would be inappropriate guardian. This has been destabilized in for Arpita. Does report feeling depressed. Reports intermittent thoughts of self-harm. Did ask about partial hospital programs and open to same. Did agree to have Tegretol level drawn in the morning as her mood does tend to be sensitive regarding Tegretol levels- does better the with a level of around 9 or 10 Medication Compliance: Yes Side effects from medications: No Attending Groups: Yes Review of Systems Acute medical concerns: No Review of Systems Review of Systems Unremarkable Mental Status Exam Mental Status Exam Narrative: Pleasant. Engaged. Self-care okay. [place] at times. Does endorse feeling depressed and anxious with intermittent suicidal thoughts. No plans or intent. No psychosis. No HI. Insight and judgment okay Diagnostics Vital Signs (24Hr): Vital Signs - 24 hr 01/19/22 21:15 01/20/22 09:00 Temperature 97.9 F 97.8 F Pulse Rate 86 90 Respiratory Rate 18 16 Blood Pressure 130/75 122/64 Pulse Oximetry 96 98 Oxygen Delivery Method Room Air Room Air BMI result Body Mass Index 45.8 Labs Results: 01/19/22 08:54 Labs: Laboratory Results - last 48 hr 01/19/22 01/19/22 01/20/22 08:31 08:54 08:59 Sodium 137 Potassium 4.5 Chloride 102 Carbon Dioxide 30 H Anion Gap 10 L BUN 19 H Creatinine 0.70 Estim Creat Clear Calc 114.6 Estimated GFR > 60 POC Glucose 91 90 Random Glucose 93 Calcium 8.7 Medications Medications Current Medications Acetaminophen (Acetaminophen 325 Mg Tablet) 650 mg PO Q6H PRN PRN Reason: Headache/Pain Mild Scale (1-3) Last Admin: 01/18/22 22:16 Dose: 650 mg Al Hydroxide/Mg Hydroxide (Magnesium Hydrox/Alum Hydrox 30 Ml Oral.Susp) 30 ml PO Q6H PRN PRN Reason: Heartburn/Nausea Albuterol Sulfate (Albuterol Sulfate 90 Mcg 8 Gm Inhaler) 2 puff INHALE Q4H PRN PRN Reason: Wheezing Last Admin: 01/17/22 12:40 Dose: 2 puff Albuterol/Ipratropium (Albuterol/Iprat 2.5/0.5mg 3 Ml Ampul.Neb) 3 ml INHALE Q4H PRN PRN Reason: Shortness of Breath Artificial Tears (Artificial Tears 15 Ml Drops) 1 drop EYE-BOTH QID [facility] Last Admin: 01/20/22 09:05 Dose: 1 drop Bacitracin (Bacitracin Oint 14 Gm Tube) 1 appl TOPICAL BID [facility]; Protocol Stop: 01/21/22 09:00 Last Admin: 01/20/22 09:16 Dose: Not Given Calcium Carbonate (Calcium Carbonate 500 Mg Tablet) 1,000 mg PO BID [facility] Last Admin: 01/20/22 09:02 Dose: 1,000 mg Carbamazepine (Carbamazepine Er 200 Mg Tab.Er.12h) 600 mg PO BID [facility] Last Admin: 01/20/22 09:00 Dose: 600 mg Clonazepam (Clonazepam 0.5 Mg Tablet) 0.5 mg PO BID PRN PRN Reason: anxiety Last Admin: 01/20/22 02:46 Dose: 0.5 mg Clotrimazole (Clotrimazole 1 % Cream 15 Gm Tube) 1 appl TOPICAL BEDTIME [facility] Last Admin: 01/19/22 21:16 Dose: 1 appl Dicyclomine HCl (Dicyclomine Hcl 10 Mg Capsule) 10 mg PO QIDACHS PRN PRN Reason: IBS Last Admin: 01/20/22 13:57 Dose: 10 mg Famotidine (Famotidine 20 Mg Tablet) 20 mg PO BEDTIME [facility] Last Admin: 01/19/22 21:19 Dose: 20 mg Fluticasone/Vilanterol (Fluticasone/Vilanterol 100/25 Blst.W.Dev) 1 puff INHALE RDAILY [facility] Last Admin: 01/20/22 09:16 Dose: Not Given Gabapentin (Gabapentin 300 Mg Capsule) 300 mg PO BID [facility] Last Admin: 01/20/22 09:04 Dose: 300 mg Hydroxyzine HCl (Hydroxyzine Hcl 50 Mg Tablet) 100 mg PO QID PRN PRN Reason: Anxiety Last Admin: 01/20/22 09:08 Dose: 100 mg Ibuprofen (Ibuprofen 600 Mg Tablet) 600 mg PO Q6H PRN PRN Reason: Pain, Moderate (Pain Scale 4-6 Last Admin: 01/20/22 09:04 Dose: 600 mg Lactase (Lactase Tablet) 2 tab PO TIDWM PRN PRN Reason: lactose intolerance Loratadine (Loratadine 10 Mg Tablet) 10 mg PO DAILY [facility] Last Admin: 01/20/22 09:04 Dose: 10 mg Magnesium Hydroxide (Milk Of Magnesia 30 Ml Oral.Susp) 30 ml PO DAILY PRN PRN Reason: Constipation Metformin HCl (Metformin Hcl 500 Mg Tablet) 500 mg PO BID [facility] Last Admin: 01/20/22 09:01 Dose: 500 mg Multivitamins/Vitamin C (Multivitamin Tablet) 1 tab PO DAILY [facility] Last Admin: 01/20/22 09:01 Dose: 1 tab Omeprazole (Omeprazole 20 Mg Capsule.Dr) 20 mg PO BID@0630,1630 [facility] Last Admin: 01/20/22 06:47 Dose: 20 mg Ondansetron HCl (Ondansetron Odt 4 Mg Tab.Rapdis) 8 mg TRANSLINGU TIDWM [facility] Last Admin: 01/20/22 13:09 Dose: 8 mg Prazosin HCl (Prazosin Hcl 1 Mg Capsule) 4 mg PO BEDTIME [facility]; Protocol Last Admin: 01/19/22 21:19 Dose: 4 mg Quetiapine Fumarate (Quetiapine Fumarate 100 Mg Tablet) 100 mg PO BEDTIME [facility] Last Admin: 01/19/22 21:17 Dose: 100 mg Trazodone HCl (Trazodone Hcl 100 Mg Tablet) 200 mg PO BEDTIME [facility] Last Admin: 01/19/22 21:18 Dose: 200 mg Vitamin D (Cholecalciferol (Vitamin D3) 25 Mcg Tablet) 50 mcg PO DAILY [facility] Last Admin: 01/20/22 09:01 Dose: 50 mcg Allergies Allergies Allergy/AdvReac Type Severity Reaction Status Date / Time Benzodiazepines Allergy Intermediate Irritable Verified 08/01/21 19:03 diazepam [From Valium] Allergy Intermediate Irritable Verified 08/01/21 19:02 sulfamethoxazole Allergy Intermediate Rash Verified 08/01/21 19:01 [From Bactrim] trimethoprim [From Bactrim] Allergy Intermediate Rash Verified 08/01/21 19:01 Assessment & Plan Assessment & Plan (1) Bipolar disorder: Qualifiers: Active/Remission status: currently active Current bipolar episode type: depressed Current episode severity: moderate Qualified Code(s): F31.32 - Bipolar disorder, current episode depressed, moderate Status: Acute Code(s): F31.9 - Bipolar disorder, unspecified Plan continue home meds. added bacitracin for 5 days. explore housing situation/options with caregivers. stabilize. discharge to home once stabilized. 01/19 continue current medications, SW working on referral to [facility]. 01/20/2022. Tegretol level in the morning I spent minutes with the patient and/or on the patient floor today, greater than?50% of which was spent counseling/coordinating care. Reason for contiued inpatient stay Substantial Risk for: harm to self
[2022-01-20 18:00] VITALS: BP 145/85; PULSE 88; RESP 20; TEMP 37.3; O2SAT 96
[2022-01-20] MEDS: Bacitracin Oint 14 GM TUBE 1 APPL TOPICAL (21:10)
[2022-01-20] MEDS: Clotrimazole 1 % Cream 15 GM TUBE 1 APPL TOPICAL (21:13)
[2022-01-20] MEDS: Prazosin HCL 1 MG CAPSULE 4 MG PO (21:15)
[2022-01-20] MEDS: Famotidine 20 MG TABLET PO (21:15)
[2022-01-20] MEDS: QUEtiapine Fumarate 100 MG TABLET PO (21:16)
[2022-01-20] MEDS: traZODone HCL 100 MG TABLET 200 MG PO (21:16)
[2022-01-20] MEDS: Magnesium Hydrox/Alum Hydrox 30 ML ORAL.SUSP PO (21:17)
[2022-01-21] MEDS: hydrOXYzine HCL 50 MG TABLET 100 MG PO ×2 (01:23→14:10)
[2022-01-21 06:44] VITALS: PULSE 80; RESP 18; TEMP 36.1; O2SAT 94
[2022-01-21 08:35] VITALS: BP 140/63; PULSE 86; TEMP 36.5
[2022-01-21] MEDS: Multivitamin TABLET 1 TAB PO (08:49)
[2022-01-21] MEDS: metFORMIN HCl 500 MG TABLET PO ×2 (08:49→20:31)
[2022-01-21] MEDS: Omeprazole 20 MG CAPSULE.DR PO ×2 (08:49→15:40)
[2022-01-21] MEDS: Loratadine 10 MG TABLET PO (08:49)
[2022-01-21] MEDS: Ondansetron ODT 4 MG TAB.RAPDIS 8 MG TRANSLINGU ×2 (08:50→17:05)
[2022-01-21] MEDS: Ibuprofen 600 MG TABLET PO ×2 (08:50→15:39)
[2022-01-21] MEDS: carBAMazepine ER 200 MG TAB.ER.12H 600 MG PO ×2 (08:50→20:29)
[2022-01-21] MEDS: Cholecalciferol (Vitamin D3) 25 MCG TABLET 50 MCG PO (08:50)
[2022-01-21] MEDS: Gabapentin 300 MG CAPSULE PO ×2 (08:50→20:31)
[2022-01-21] MEDS: Bacitracin Oint 14 GM TUBE 1 APPL TOPICAL (08:52)
[2022-01-21] MEDS: Fluticasone/Vilanterol 100/25 BLST.W.DEV 1 PUFF INHALE (08:52)
[2022-01-21] MEDS: Artificial Tears 15 ML DROPS 1 DROP EYE-BOTH ×3 (08:52→22:11)
[2022-01-21 09:06] LABS: Carbamazepine Tegretol 9.9 mcg/mL (5.0-12.0)
[2022-01-21] MEDS: Dicyclomine HCl 10 MG CAPSULE PO ×2 (09:28→14:10)
--- NOTE | 2022-01-21 12:06 | P.PNPSI_ITS ---
Subjective Subjective Date of Service: 01/21/22 Reason For Visit: Bipolar 1 Disorder Interim History: Background 01/20/22: Patient well known to curriculum writer as curriculum writer is patient's outpatient psychiatrist. Arpita has not been doing well for the last number of months in and out of hospital multiple ED evaluations. She does have a history of a TBI. Also has established history of pseudoseizures and can be somatic in nature. Elderly mother is guardian and based in [place]. Has [id number]. Lives in a assisted. Main stressors appear to be current assisted living environment and potential change might be needed. Also elderly parents who are trying to plan for the future and find a guardian through legal services as there are no family members or friends that would be inappropriate guardian. This has been destabilized in for Arpita. Today reports that she slept really well last night which is the 1st time in a long time. Feels that her mood is slightly better today. Reports that she is now thinking about discharge planning and feels like a partial hospital program will be helpful. Also reports that her mom states that if she is stable and doing okay for 6 weeks that she could visit with her parents in [place]. Does have some ankle discomfort otherwise feels physically okay. Informed Tegretol level was 9.9, which is therapeutic. Is participating in the milieu. Denies thoughts of self-harm or suicide. Medication Compliance: Yes Side effects from medications: No Attending Groups: Yes Review of Systems Acute medical concerns: No Review of Systems Review of Systems Unremarkable Mental Status Exam Mental Status Exam Narrative: Pleasant. Engaged. Self-care okay. [place] at times. Does endorse feeling less depressed and anxious without suicidal thoughts. No plans or intent. No psychosis. No HI. Insight and judgment okay Diagnostics Vital Signs (24Hr): Vital Signs - 24 hr 01/20/22 18:00 01/21/22 06:44 01/21/22 08:35 Temperature 99.1 F 96.9 F 97.7 F Pulse Rate 88 80 86 Respiratory Rate 20 18 Blood Pressure 145/85 H 140/63 H Pulse Oximetry 96 94 Oxygen Delivery Method Room Air Room Air BMI result Body Mass Index 45.8 Labs Results: 01/19/22 08:54 Labs: Laboratory Results - last 48 hr 01/20/22 01/21/22 08:59 07:56 POC Glucose 90 Carbamazepine 9.9 Medications Medications Current Medications Acetaminophen (Acetaminophen 325 Mg Tablet) 650 mg PO Q6H PRN PRN Reason: Headache/Pain Mild Scale (1-3) Last Admin: 01/18/22 22:16 Dose: 650 mg Al Hydroxide/Mg Hydroxide (Magnesium Hydrox/Alum Hydrox 30 Ml Oral.Susp) 30 ml PO Q6H PRN PRN Reason: Heartburn/Nausea Last Admin: 01/20/22 21:17 Dose: 30 ml Albuterol Sulfate (Albuterol Sulfate 90 Mcg 8 Gm Inhaler) 2 puff INHALE Q4H PRN PRN Reason: Wheezing Last Admin: 01/17/22 12:40 Dose: 2 puff Albuterol/Ipratropium (Albuterol/Iprat 2.5/0.5mg 3 Ml Ampul.Neb) 3 ml INHALE Q4H PRN PRN Reason: Shortness of Breath Artificial Tears (Artificial Tears 15 Ml Drops) 1 drop EYE-BOTH QID [facility] Last Admin: 01/21/22 08:52 Dose: 1 drop Calcium Carbonate (Calcium Carbonate 500 Mg Tablet) 1,000 mg PO BID [facility] Last Admin: 01/21/22 08:50 Dose: 1,000 mg Carbamazepine (Carbamazepine Er 200 Mg Tab.Er.12h) 600 mg PO BID [facility] Last Admin: 01/21/22 08:50 Dose: 600 mg Clonazepam (Clonazepam 0.5 Mg Tablet) 0.5 mg PO BID PRN PRN Reason: anxiety Last Admin: 01/20/22 02:46 Dose: 0.5 mg Clotrimazole (Clotrimazole 1 % Cream 15 Gm Tube) 1 appl TOPICAL BEDTIME [facility] Last Admin: 01/20/22 21:13 Dose: 1 appl Dicyclomine HCl (Dicyclomine Hcl 10 Mg Capsule) 10 mg PO QIDACHS PRN PRN Reason: IBS Last Admin: 01/21/22 09:28 Dose: 10 mg Famotidine (Famotidine 20 Mg Tablet) 20 mg PO BEDTIME [facility] Last Admin: 01/20/22 21:15 Dose: 20 mg Fluticasone/Vilanterol (Fluticasone/Vilanterol 100/25 Blst.W.Dev) 1 puff INHALE RDAILY [facility] Last Admin: 01/21/22 08:52 Dose: 1 puff Gabapentin (Gabapentin 300 Mg Capsule) 300 mg PO BID [facility] Last Admin: 01/21/22 08:50 Dose: 300 mg Hydroxyzine HCl (Hydroxyzine Hcl 50 Mg Tablet) 100 mg PO QID PRN PRN Reason: Anxiety Last Admin: 01/21/22 01:23 Dose: 100 mg Ibuprofen (Ibuprofen 600 Mg Tablet) 600 mg PO Q6H PRN PRN Reason: Pain, Moderate (Pain Scale 4-6 Last Admin: 01/21/22 08:50 Dose: 600 mg Lactase (Lactase Tablet) 2 tab PO TIDWM PRN PRN Reason: lactose intolerance Loratadine (Loratadine 10 Mg Tablet) 10 mg PO DAILY [facility] Last Admin: 01/21/22 08:49 Dose: 10 mg Magnesium Hydroxide (Milk Of Magnesia 30 Ml Oral.Susp) 30 ml PO DAILY PRN PRN Reason: Constipation Metformin HCl (Metformin Hcl 500 Mg Tablet) 500 mg PO BID [facility] Last Admin: 01/21/22 08:49 Dose: 500 mg Multivitamins/Vitamin C (Multivitamin Tablet) 1 tab PO DAILY [facility] Last Admin: 01/21/22 08:49 Dose: 1 tab Omeprazole (Omeprazole 20 Mg Capsule.Dr) 20 mg PO BID@0630,1630 [facility] Last Admin: 01/21/22 08:49 Dose: 20 mg Ondansetron HCl (Ondansetron Odt 4 Mg Tab.Rapdis) 8 mg TRANSLINGU TIDWM [facility] Last Admin: 01/21/22 08:50 Dose: 8 mg Prazosin HCl (Prazosin Hcl 1 Mg Capsule) 4 mg PO BEDTIME [facility]; Protocol Last Admin: 01/20/22 21:15 Dose: 4 mg Quetiapine Fumarate (Quetiapine Fumarate 100 Mg Tablet) 100 mg PO BEDTIME [facility] Last Admin: 01/20/22 21:16 Dose: 100 mg Trazodone HCl (Trazodone Hcl 100 Mg Tablet) 200 mg PO BEDTIME [facility] Last Admin: 01/20/22 21:16 Dose: 200 mg Vitamin D (Cholecalciferol (Vitamin D3) 25 Mcg Tablet) 50 mcg PO DAILY [facility] Last Admin: 01/21/22 08:50 Dose: 50 mcg Allergies Allergies Allergy/AdvReac Type Severity Reaction Status Date / Time Benzodiazepines Allergy Intermediate Irritable Verified 08/01/21 19:03 diazepam [From Valium] Allergy Intermediate Irritable Verified 08/01/21 19:02 sulfamethoxazole Allergy Intermediate Rash Verified 08/01/21 19:01 [From Bactrim] trimethoprim [From Bactrim] Allergy Intermediate Rash Verified 08/01/21 19:01 Assessment & Plan Assessment & Plan (1) Bipolar disorder: Qualifiers: Active/Remission status: currently active Current bipolar episode type: depressed Current episode severity: moderate Qualified Code(s): F31.32 - Bipolar disorder, current episode depressed, moderate Status: Acute Code(s): F31.9 - Bipolar disorder, unspecified Plan continue home meds. added bacitracin for 5 days. explore housing situation/options with caregivers. stabilize. discharge to home once stabilized. 01/19 continue current medications, SW working on referral to [facility]. 01/20/2022. Tegretol level in the morning 01/21/2022: Tegretol level 9.9, so no changes. I spent minutes with the patient and/or on the patient floor today, greater than?50% of which was spent counseling/coordinating care. Reason for contiued inpatient stay Substantial Risk for: harm to self
[2022-01-21] MEDS: Acetaminophen 325 MG TABLET 650 MG PO ×2 (17:05→21:29)
[2022-01-21 18:00] VITALS: BP 118/78; PULSE 101; RESP 16; TEMP 36.6; O2SAT 98
[2022-01-21] MEDS: Prazosin HCL 1 MG CAPSULE 4 MG PO (20:28)
[2022-01-21] MEDS: Clotrimazole 1 % Cream 15 GM TUBE 1 APPL TOPICAL (20:28)
[2022-01-21] MEDS: QUEtiapine Fumarate 100 MG TABLET PO (20:31)
[2022-01-21] MEDS: Famotidine 20 MG TABLET PO (20:31)
[2022-01-21] MEDS: traZODone HCL 100 MG TABLET 200 MG PO (20:31)
--- NOTE | 2022-01-21 21:03 | PC.NURSE ---
Pt alert and oriented X4, Pt C/O ankle pain, saying that she heard a popping sound in the ankle area. Dr. Nando Morris notified, new orders for x-ray given and done. Pt continues to feel pain Md notified, no new orders. Md will review with her tomorrow.
[2022-01-22 06:00] VITALS: BP 118/66; PULSE 75; TEMP 36.6; O2SAT 96
[2022-01-22] MEDS: Multivitamin TABLET 1 TAB PO (09:03)
[2022-01-22] MEDS: Ibuprofen 600 MG TABLET PO (09:03)
[2022-01-22] MEDS: carBAMazepine ER 200 MG TAB.ER.12H 600 MG PO ×2 (09:03→20:39)
[2022-01-22] MEDS: metFORMIN HCl 500 MG TABLET PO ×2 (09:04→20:39)
[2022-01-22] MEDS: Loratadine 10 MG TABLET PO (09:04)
[2022-01-22] MEDS: Cholecalciferol (Vitamin D3) 25 MCG TABLET 50 MCG PO (09:04)
[2022-01-22] MEDS: Omeprazole 20 MG CAPSULE.DR PO ×2 (09:04→18:31)
[2022-01-22] MEDS: Ondansetron ODT 4 MG TAB.RAPDIS 8 MG TRANSLINGU ×3 (09:04→18:30)
[2022-01-22] MEDS: Gabapentin 300 MG CAPSULE PO ×2 (09:04→20:39)
[2022-01-22] MEDS: Artificial Tears 15 ML DROPS 1 DROP EYE-BOTH ×3 (09:05→20:40)
[2022-01-22] MEDS: Fluticasone/Vilanterol 100/25 BLST.W.DEV 1 PUFF INHALE (09:05)
[2022-01-22] MEDS: Dicyclomine HCl 10 MG CAPSULE PO ×3 (09:33→18:30)
[2022-01-22] MEDS: hydrOXYzine HCL 50 MG TABLET 100 MG PO ×2 (13:20→20:39)
--- NOTE | 2022-01-22 15:50 | P.PNPSI_ITS ---
Subjective Subjective Date of Service: 01/22/22 Reason For Visit: Bipolar 1 Disorder Interim History: Background 01/20/22: Patient well known to policy writer sales as policy writer sales is patient's outpatient psychiatrist. Arpita has not been doing well for the last number of months in and out of hospital multiple ED evaluations. She does have a history of a TBI. Also has established history of pseudoseizures and can be somatic in nature. Elderly mother is guardian and based in [place]. Has [facility]. Lives in a care home. Main stressors appear to be current care home living environment and potential change might be needed. Also elderly parents who are trying to plan for the future and find a guardian through legal services as there are no family members or friends that would be inappropriate guardian. This has been destabilized in for Arpita. Continues to report feeling that her mood has improved and she is hopeful for discharge soon and would like to do a partial hospital program. Will also require coordination with her care home and community treatment team with [facility]. Is participating in the milieu. Denies thoughts of self-harm or suicide. Medication Compliance: Yes Side effects from medications: No Attending Groups: Yes Review of Systems Acute medical concerns: No Review of Systems Review of Systems Unremarkable Mental Status Exam Mental Status Exam Narrative: Pleasant. Engaged. Self-care okay. [place] at times. Denies feeling depressed. Much less anxious. No SI. No psychosis. No HI. Insight and judgment okay Diagnostics Vital Signs (24Hr): Vital Signs - 24 hr 01/21/22 18:00 01/22/22 06:00 Temperature 97.9 F 97.8 F Pulse Rate 101 H 75 Respiratory Rate 16 Blood Pressure 118/78 118/66 Pulse Oximetry 98 96 Oxygen Delivery Method Room Air Room Air BMI result Body Mass Index 45.8 Labs Results: 01/19/22 08:54 Labs: Laboratory Results - last 48 hr 01/21/22 07:56 Carbamazepine 9.9 Imaging Radiology Impressions: ITS Impressions Ankle X-Ray 01/21/22 18:57 IMPRESSION: Soft tissue swelling at the ankle. No acute osseous findings. Medications Medications Current Medications Acetaminophen (Acetaminophen 325 Mg Tablet) 650 mg PO Q6H PRN PRN Reason: Headache/Pain Mild Scale (1-3) Last Admin: 01/21/22 21:29 Dose: 650 mg Al Hydroxide/Mg Hydroxide (Magnesium Hydrox/Alum Hydrox 30 Ml Oral.Susp) 30 ml PO Q6H PRN PRN Reason: Heartburn/Nausea Last Admin: 01/20/22 21:17 Dose: 30 ml Albuterol Sulfate (Albuterol Sulfate 90 Mcg 8 Gm Inhaler) 2 puff INHALE Q4H PRN PRN Reason: Wheezing Last Admin: 01/17/22 12:40 Dose: 2 puff Albuterol/Ipratropium (Albuterol/Iprat 2.5/0.5mg 3 Ml Ampul.Neb) 3 ml INHALE Q4H PRN PRN Reason: Shortness of Breath Artificial Tears (Artificial Tears 15 Ml Drops) 1 drop EYE-BOTH QID [facility] Last Admin: 01/22/22 13:30 Dose: Not Given Calcium Carbonate (Calcium Carbonate 500 Mg Tablet) 1,000 mg PO BID [facility] Last Admin: 01/22/22 09:03 Dose: 1,000 mg Carbamazepine (Carbamazepine Er 200 Mg Tab.Er.12h) 600 mg PO BID [facility] Last Admin: 01/22/22 09:03 Dose: 600 mg Clonazepam (Clonazepam 0.5 Mg Tablet) 0.5 mg PO BID PRN PRN Reason: anxiety Clotrimazole (Clotrimazole 1 % Cream 15 Gm Tube) 1 appl TOPICAL BEDTIME [facility] Last Admin: 01/21/22 20:28 Dose: 1 appl Dicyclomine HCl (Dicyclomine Hcl 10 Mg Capsule) 10 mg PO QIDACHS PRN PRN Reason: IBS Last Admin: 01/22/22 13:18 Dose: 10 mg Famotidine (Famotidine 20 Mg Tablet) 20 mg PO BEDTIME [facility] Last Admin: 01/21/22 20:31 Dose: 20 mg Fluticasone/Vilanterol (Fluticasone/Vilanterol 100/25 Blst.W.Dev) 1 puff INHALE RDAILY [facility] Last Admin: 01/22/22 09:05 Dose: 1 puff Gabapentin (Gabapentin 300 Mg Capsule) 300 mg PO BID [facility] Last Admin: 01/22/22 09:04 Dose: 300 mg Hydroxyzine HCl (Hydroxyzine Hcl 50 Mg Tablet) 100 mg PO QID PRN PRN Reason: Anxiety Last Admin: 01/22/22 13:20 Dose: 100 mg Ibuprofen (Ibuprofen 600 Mg Tablet) 600 mg PO Q6H PRN PRN Reason: Pain, Moderate (Pain Scale 4-6 Last Admin: 01/22/22 09:03 Dose: 600 mg Lactase (Lactase Tablet) 2 tab PO TIDWM PRN PRN Reason: lactose intolerance Loratadine (Loratadine 10 Mg Tablet) 10 mg PO DAILY [facility] Last Admin: 01/22/22 09:04 Dose: 10 mg Magnesium Hydroxide (Milk Of Magnesia 30 Ml Oral.Susp) 30 ml PO DAILY PRN PRN Reason: Constipation Metformin HCl (Metformin Hcl 500 Mg Tablet) 500 mg PO BID [facility] Last Admin: 01/22/22 09:04 Dose: 500 mg Multivitamins/Vitamin C (Multivitamin Tablet) 1 tab PO DAILY [facility] Last Admin: 01/22/22 09:03 Dose: 1 tab Omeprazole (Omeprazole 20 Mg Capsule.Dr) 20 mg PO BID@0630,1630 [facility] Last Admin: 01/22/22 09:04 Dose: 20 mg Ondansetron HCl (Ondansetron Odt 4 Mg Tab.Rapdis) 8 mg TRANSLINGU TIDWM [facility] Last Admin: 01/22/22 13:15 Dose: 8 mg Prazosin HCl (Prazosin Hcl 1 Mg Capsule) 4 mg PO BEDTIME [facility]; Protocol Last Admin: 01/21/22 20:28 Dose: 4 mg Quetiapine Fumarate (Quetiapine Fumarate 100 Mg Tablet) 100 mg PO BEDTIME [facility] Last Admin: 01/21/22 20:31 Dose: 100 mg Trazodone HCl (Trazodone Hcl 100 Mg Tablet) 200 mg PO BEDTIME [facility] Last Admin: 01/21/22 20:31 Dose: 200 mg Vitamin D (Cholecalciferol (Vitamin D3) 25 Mcg Tablet) 50 mcg PO DAILY [facility] Last Admin: 01/22/22 09:04 Dose: 50 mcg Allergies Allergies Allergy/AdvReac Type Severity Reaction Status Date / Time Benzodiazepines Allergy Intermediate Irritable Verified 08/01/21 19:03 diazepam [From Valium] Allergy Intermediate Irritable Verified 08/01/21 19:02 sulfamethoxazole Allergy Intermediate Rash Verified 08/01/21 19:01 [From Bactrim] trimethoprim [From Bactrim] Allergy Intermediate Rash Verified 08/01/21 19:01 Assessment & Plan Assessment & Plan (1) Bipolar disorder: Qualifiers: Active/Remission status: currently active Current bipolar episode type: depressed Current episode severity: moderate Qualified Code(s): F31.32 - Bipolar disorder, current episode depressed, moderate Status: Acute Code(s): F31.9 - Bipolar disorder, unspecified Plan continue home meds. added bacitracin for 5 days. explore housing situation/options with caregivers. stabilize. discharge to home once stabilized. 01/19 continue current medications, SW working on referral to [facility]. 01/20/2022. Tegretol level in the morning 01/21/2022: Tegretol level 9.9, so no changes. 01/22/22: Stable. No changes I spent minutes with the patient and/or on the patient floor today, greater than?50% of which was spent counseling/coordinating care. Reason for contiued inpatient stay Substantial Risk for: rapid decompensation
[2022-01-22] MEDS: traZODone HCL 100 MG TABLET 200 MG PO (20:39)
[2022-01-22] MEDS: Famotidine 20 MG TABLET PO (20:39)
[2022-01-22] MEDS: QUEtiapine Fumarate 100 MG TABLET PO (20:39)
[2022-01-22] MEDS: Prazosin HCL 1 MG CAPSULE 4 MG PO (20:39)
[2022-01-22 21:00] VITALS: BP 121/76; PULSE 85; TEMP 36.6
[2022-01-23] MEDS: Acetaminophen 325 MG TABLET 650 MG PO ×2 (01:32→16:04)
[2022-01-23] MEDS: hydrOXYzine HCL 50 MG TABLET 100 MG PO ×3 (01:32→17:39)
[2022-01-23 06:00] VITALS: BP 127/80; PULSE 83; RESP 18; TEMP 36.6
[2022-01-23] MEDS: carBAMazepine ER 200 MG TAB.ER.12H 600 MG PO ×2 (07:56→21:25)
[2022-01-23] MEDS: Loratadine 10 MG TABLET PO (07:57)
[2022-01-23] MEDS: Ondansetron ODT 4 MG TAB.RAPDIS 8 MG TRANSLINGU ×3 (07:57→17:32)
[2022-01-23] MEDS: Cholecalciferol (Vitamin D3) 25 MCG TABLET 50 MCG PO (07:59)
[2022-01-23] MEDS: Omeprazole 20 MG CAPSULE.DR PO ×2 (07:59→15:53)
[2022-01-23] MEDS: metFORMIN HCl 500 MG TABLET PO ×2 (07:59→21:25)
[2022-01-23] MEDS: Gabapentin 300 MG CAPSULE PO ×2 (08:00→21:26)
[2022-01-23] MEDS: Artificial Tears 15 ML DROPS 1 DROP EYE-BOTH ×4 (08:00→21:26)
[2022-01-23] MEDS: Multivitamin TABLET 1 TAB PO (08:01)
[2022-01-23] MEDS: Fluticasone/Vilanterol 100/25 BLST.W.DEV 1 PUFF INHALE (08:19)
[2022-01-23] MEDS: Dicyclomine HCl 10 MG CAPSULE PO ×2 (10:33→18:30)
[2022-01-23] MEDS: Albuterol Sulfate 90 MCG 8 GM INHALER 2 PUFF INHALE (12:18)
[2022-01-23 12:32] LABS: Glucose, Whole Blood 101 mg/dL (60-115)
[2022-01-23] MEDS: clonazePAM 0.5 MG TABLET PO ×2 (13:46→22:09)
--- NOTE | 2022-01-23 17:09 | P.PNPSI_ITS ---
Subjective Subjective Date of Service: 01/23/22 Reason For Visit: Bipolar 1 Disorder Subjective Notes: Conditional Voluntary Healthcare Proxy: No Guardianship: Yes Medical Problems Affecting Mental Status: No Interim History: Arpita reports a positive transfer from over the weekend, stating my outpatient psychiatrist was the doctor operations representative and I was able to see him. Pt asking about PHP post discharge, planning discharge this week. Reports sleep and mood are improved. Looking forward [facility]. Medication Compliance: Yes Side effects from medications: No Attending Groups: Yes Review of Systems Acute medical concerns: No Medical Review of Systems: unchanged Review of Systems Psychiatric: Reports no additional psychiatric complaints Mental Status Exam Mental Status Exam Patient Appearance: Appropriate Patient Orientation: Person, Place, Time and Situation Level of Consciousness: Alert Patient Behavior: Appropriate, Talkative, Cooperative and Good Eye Contact Mood Description: Appropriate and Apprehensive Affect Description: Constricted Patient Cognition Impaired: No Ability to Follow Directions: Good Speech Pattern: Spontaneous Speech Memory Description: Intact Hallucinations: None Delusions: Not Present Thought Process: Intact and Distracted Thought Content: positive for Intact Judgement: Good Diagnostics Vital Signs (24Hr): Vital Signs - 24 hr 01/22/22 21:00 01/23/22 06:00 Temperature 97.8 F 97.9 F Pulse Rate 85 83 Respiratory Rate 18 Blood Pressure 121/76 127/80 BMI result Body Mass Index 45.8 Labs Results: 01/19/22 08:54 Labs: Laboratory Results - last 48 hr 01/23/22 12:26 POC Glucose 101 Imaging Radiology Impressions: ITS Impressions Ankle X-Ray 01/21/22 18:57 IMPRESSION: Soft tissue swelling at the ankle. No acute osseous findings. Medications Medications Current Medications Acetaminophen (Acetaminophen 325 Mg Tablet) 650 mg PO Q6H PRN PRN Reason: Headache/Pain Mild Scale (1-3) Last Admin: 01/23/22 16:04 Dose: 650 mg Al Hydroxide/Mg Hydroxide (Magnesium Hydrox/Alum Hydrox 30 Ml Oral.Susp) 30 ml PO Q6H PRN PRN Reason: Heartburn/Nausea Last Admin: 01/20/22 21:17 Dose: 30 ml Albuterol Sulfate (Albuterol Sulfate 90 Mcg 8 Gm Inhaler) 2 puff INHALE Q4H PRN PRN Reason: Wheezing Last Admin: 01/23/22 12:18 Dose: 2 puff Albuterol/Ipratropium (Albuterol/Iprat 2.5/0.5mg 3 Ml Ampul.Neb) 3 ml INHALE Q4H PRN PRN Reason: Shortness of Breath Artificial Tears (Artificial Tears 15 Ml Drops) 1 drop EYE-BOTH QID [facility] Last Admin: 01/23/22 16:00 Dose: 1 drop Calcium Carbonate (Calcium Carbonate 500 Mg Tablet) 1,000 mg PO BID [facility] Last Admin: 01/23/22 07:56 Dose: 1,000 mg Carbamazepine (Carbamazepine Er 200 Mg Tab.Er.12h) 600 mg PO BID [facility] Last Admin: 01/23/22 07:56 Dose: 600 mg Clonazepam (Clonazepam 0.5 Mg Tablet) 0.5 mg PO BID PRN PRN Reason: anxiety Last Admin: 01/23/22 13:46 Dose: 0.5 mg Clotrimazole (Clotrimazole 1 % Cream 15 Gm Tube) 1 appl TOPICAL BID [facility] Dicyclomine HCl (Dicyclomine Hcl 10 Mg Capsule) 10 mg PO QIDACHS PRN PRN Reason: IBS Last Admin: 01/23/22 10:33 Dose: 10 mg Famotidine (Famotidine 20 Mg Tablet) 20 mg PO BEDTIME [facility] Last Admin: 01/22/22 20:39 Dose: 20 mg Fluticasone/Vilanterol (Fluticasone/Vilanterol 100/25 Blst.W.Dev) 1 puff INHALE RDAILY [facility] Last Admin: 01/23/22 08:19 Dose: 1 puff Gabapentin (Gabapentin 300 Mg Capsule) 300 mg PO BID [facility] Last Admin: 01/23/22 08:00 Dose: 300 mg Hydroxyzine HCl (Hydroxyzine Hcl 50 Mg Tablet) 100 mg PO QID PRN PRN Reason: Anxiety Last Admin: 01/23/22 12:22 Dose: 100 mg Ibuprofen (Ibuprofen 600 Mg Tablet) 600 mg PO Q6H PRN PRN Reason: Pain, Moderate (Pain Scale 4-6 Last Admin: 01/22/22 09:03 Dose: 600 mg Lactase (Lactase Tablet) 2 tab PO TIDWM PRN PRN Reason: lactose intolerance Loratadine (Loratadine 10 Mg Tablet) 10 mg PO DAILY [facility] Last Admin: 01/23/22 07:57 Dose: 10 mg Magnesium Hydroxide (Milk Of Magnesia 30 Ml Oral.Susp) 30 ml PO DAILY PRN PRN Reason: Constipation Metformin HCl (Metformin Hcl 500 Mg Tablet) 500 mg PO BID [facility] Last Admin: 01/23/22 07:59 Dose: 500 mg Multivitamins/Vitamin C (Multivitamin Tablet) 1 tab PO DAILY [facility] Last Admin: 01/23/22 08:01 Dose: 1 tab Omeprazole (Omeprazole 20 Mg Capsule.Dr) 20 mg PO BID@0630,1630 [facility] Last Admin: 01/23/22 15:53 Dose: 20 mg Ondansetron HCl (Ondansetron Odt 4 Mg Tab.Rapdis) 8 mg TRANSLINGU TIDWM [facility] Last Admin: 01/23/22 12:17 Dose: 8 mg Prazosin HCl (Prazosin Hcl 1 Mg Capsule) 4 mg PO BEDTIME [facility]; Protocol Last Admin: 01/22/22 20:39 Dose: 4 mg Quetiapine Fumarate (Quetiapine Fumarate 100 Mg Tablet) 100 mg PO BEDTIME [facility] Last Admin: 01/22/22 20:39 Dose: 100 mg Trazodone HCl (Trazodone Hcl 100 Mg Tablet) 200 mg PO BEDTIME [facility] Last Admin: 01/22/22 20:39 Dose: 200 mg Vitamin D (Cholecalciferol (Vitamin D3) 25 Mcg Tablet) 50 mcg PO DAILY [facility] Last Admin: 01/23/22 07:59 Dose: 50 mcg Allergies Allergies Allergy/AdvReac Type Severity Reaction Status Date / Time Benzodiazepines Allergy Intermediate Irritable Verified 08/01/21 19:03 diazepam [From Valium] Allergy Intermediate Irritable Verified 08/01/21 19:02 sulfamethoxazole Allergy Intermediate Rash Verified 08/01/21 19:01 [From Bactrim] trimethoprim [From Bactrim] Allergy Intermediate Rash Verified 08/01/21 19:01 Assessment & Plan Assessment & Plan (1) Bipolar disorder: Qualifiers: Active/Remission status: currently active Current bipolar episode type: depressed Current episode severity: moderate Qualified Code(s): F31.32 - Bipolar disorder, current episode depressed, moderate Status: Acute Code(s): F31.9 - Bipolar disorder, unspecified Plan continue home meds. added bacitracin for 5 days. explore housing situation/options with caregivers. stabilize. discharge to home once stabilized. 01/19 continue current medications, SW working on referral to PHP at [facility]. 01/20/2022. Tegretol level in the morning 01/21/2022: Tegretol level 9.9, so no changes. 01/22/22: Stable. No changes 01/23/22: Discharge 01/24/22 per pt's [facility]. Continue current regime. I spent minutes with the patient and/or on the patient floor today, greater than?50% of which was spent counseling/coordinating care. Patient educated on: therapeutic strategies Informed Consent: understands Reason for contiued inpatient stay Substantial Risk for: stable for discharge
[2022-01-23] MEDS: Ibuprofen 600 MG TABLET PO (17:39)
[2022-01-23 21:19] VITALS: BP 167/86; PULSE 77
[2022-01-23] MEDS: Prazosin HCL 1 MG CAPSULE 4 MG PO (21:23)
[2022-01-23] MEDS: QUEtiapine Fumarate 100 MG TABLET PO (21:26)
[2022-01-23] MEDS: Famotidine 20 MG TABLET PO (21:26)
[2022-01-23] MEDS: traZODone HCL 100 MG TABLET 200 MG PO (21:26)
[2022-01-23 22:22] VITALS: PULSE 78; RESP 18; TEMP 36.2; O2SAT 98
[2022-01-24] MEDS: hydrOXYzine HCL 50 MG TABLET 100 MG PO ×3 (04:49→20:32)
[2022-01-24] MEDS: Acetaminophen 325 MG TABLET 650 MG PO (04:49)
[2022-01-24 06:00] VITALS: BP 111/69; PULSE 79; TEMP 36.1; O2SAT 96
[2022-01-24 08:16] VITALS: BP 131/70; PULSE 85; RESP 16; TEMP 36.6; O2SAT 96
[2022-01-24] MEDS: Ondansetron ODT 4 MG TAB.RAPDIS 8 MG TRANSLINGU ×3 (08:19→16:06)
[2022-01-24] MEDS: Cholecalciferol (Vitamin D3) 25 MCG TABLET 50 MCG PO (08:20)
[2022-01-24] MEDS: Loratadine 10 MG TABLET PO (08:20)
[2022-01-24] MEDS: Multivitamin TABLET 1 TAB PO (08:20)
[2022-01-24] MEDS: carBAMazepine ER 200 MG TAB.ER.12H 600 MG PO ×2 (08:20→20:28)
[2022-01-24] MEDS: Omeprazole 20 MG CAPSULE.DR PO ×2 (08:20→16:07)
[2022-01-24] MEDS: Gabapentin 300 MG CAPSULE PO ×2 (08:20→20:29)
[2022-01-24] MEDS: metFORMIN HCl 500 MG TABLET PO ×2 (08:20→20:29)
[2022-01-24 08:54] LABS: Glucose, Whole Blood 108 mg/dL (60-115)
[2022-01-24] MEDS: Fluticasone/Vilanterol 100/25 BLST.W.DEV 1 PUFF INHALE (10:12)
[2022-01-24] MEDS: Artificial Tears 15 ML DROPS 1 DROP EYE-BOTH ×4 (10:12→22:44)
[2022-01-24] MEDS: Ibuprofen 600 MG TABLET PO ×2 (10:41→20:31)
--- NOTE | 2022-01-24 16:01 | HO.PSYCHPN ---
Subjective Subjective Date of Service: 01/24/22 Reason For Visit: Bipolar 1 Disorder Subjective Notes: Conditional Voluntary Healthcare Proxy: No Guardianship: Yes Medical Problems Affecting Mental Status: No Interim History: My stay here has been good. I am going to visit my parents in [place] after discharge. I need their love and hugs. We are also going to all the [employer] . Pt prepared for discharge, review of her meds, completion of her paperwork for her longterm Medication Compliance: Yes Side effects from medications: No Attending Groups: Yes Review of Systems Acute medical concerns: No Medical Review of Systems: unchanged Review of Systems Psychiatric: Reports no additional psychiatric complaints Mental Status Exam Mental Status Exam Patient Appearance: Appropriate Patient Orientation: Person, Place, Time and Situation Level of Consciousness: Alert Patient Behavior: Appropriate, Talkative, Cooperative and Good Eye Contact Mood Description: Appropriate and Apprehensive Affect Description: Constricted Patient Cognition Impaired: No Ability to Follow Directions: Good Speech Pattern: Spontaneous Speech Memory Description: Intact Hallucinations: None Delusions: Not Present Thought Process: Intact and Distracted Thought Content: positive for Intact Judgement: Good Diagnostics Vital Signs (24Hr): Vital Signs - 24 hr 01/23/22 21:19 01/23/22 22:22 01/24/22 06:00 Temperature 97.1 F 97.0 F Pulse Rate 77 78 79 Respiratory Rate 18 Blood Pressure 167/86 H 111/69 Pulse Oximetry 98 96 Oxygen Delivery Method Room Air Room Air 01/24/22 08:16 Temperature 97.9 F Pulse Rate 85 Respiratory Rate 16 Blood Pressure 131/70 Pulse Oximetry 96 Oxygen Delivery Method Room Air BMI result Body Mass Index 45.8 Labs Results: 01/19/22 08:54 Labs: Laboratory Results - last 48 hr 01/23/22 01/24/22 12:26 08:50 POC Glucose 101 108 Imaging Radiology Impressions: ITS Impressions Ankle X-Ray 01/21/22 18:57 IMPRESSION: Soft tissue swelling at the ankle. No acute osseous findings. Medications Medications Current Medications Acetaminophen (Acetaminophen 325 Mg Tablet) 650 mg PO Q6H PRN PRN Reason: Headache/Pain Mild Scale (1-3) Last Admin: 01/24/22 04:49 Dose: 650 mg Al Hydroxide/Mg Hydroxide (Magnesium Hydrox/Alum Hydrox 30 Ml Oral.Susp) 30 ml PO Q6H PRN PRN Reason: Heartburn/Nausea Last Admin: 01/20/22 21:17 Dose: 30 ml Albuterol Sulfate (Albuterol Sulfate 90 Mcg 8 Gm Inhaler) 2 puff INHALE Q4H PRN PRN Reason: Wheezing Last Admin: 01/23/22 12:18 Dose: 2 puff Albuterol/Ipratropium (Albuterol/Iprat 2.5/0.5mg 3 Ml Ampul.Neb) 3 ml INHALE Q4H PRN PRN Reason: Shortness of Breath Artificial Tears (Artificial Tears 15 Ml Drops) 1 drop EYE-BOTH QID [facility] Last Admin: 01/24/22 12:16 Dose: 1 drop Calcium Carbonate (Calcium Carbonate 500 Mg Tablet) 1,000 mg PO BID [facility] Last Admin: 01/24/22 08:20 Dose: 1,000 mg Carbamazepine (Carbamazepine Er 200 Mg Tab.Er.12h) 600 mg PO BID [facility] Last Admin: 01/24/22 08:20 Dose: 600 mg Clonazepam (Clonazepam 0.5 Mg Tablet) 0.5 mg PO BID PRN PRN Reason: anxiety Last Admin: 01/23/22 22:09 Dose: 0.5 mg Clotrimazole (Clotrimazole 1 % Cream 15 Gm Tube) 1 appl TOPICAL BID [facility] Last Admin: 01/24/22 10:12 Dose: Not Given Dicyclomine HCl (Dicyclomine Hcl 10 Mg Capsule) 10 mg PO QIDACHS PRN PRN Reason: IBS Last Admin: 01/23/22 18:30 Dose: 10 mg Famotidine (Famotidine 20 Mg Tablet) 20 mg PO BEDTIME [facility] Last Admin: 01/23/22 21:26 Dose: 20 mg Fluticasone/Vilanterol (Fluticasone/Vilanterol 100/25 Blst.W.Dev) 1 puff INHALE RDAILY [facility] Last Admin: 01/24/22 10:12 Dose: 1 puff Gabapentin (Gabapentin 300 Mg Capsule) 300 mg PO BID [facility] Last Admin: 01/24/22 08:20 Dose: 300 mg Hydroxyzine HCl (Hydroxyzine Hcl 50 Mg Tablet) 100 mg PO QID PRN PRN Reason: Anxiety Last Admin: 01/24/22 10:41 Dose: 100 mg Ibuprofen (Ibuprofen 600 Mg Tablet) 600 mg PO Q6H PRN PRN Reason: Pain, Moderate (Pain Scale 4-6 Last Admin: 01/24/22 10:41 Dose: 600 mg Lactase (Lactase Tablet) 2 tab PO TIDWM PRN PRN Reason: lactose intolerance Loratadine (Loratadine 10 Mg Tablet) 10 mg PO DAILY [facility] Last Admin: 01/24/22 08:20 Dose: 10 mg Magnesium Hydroxide (Milk Of Magnesia 30 Ml Oral.Susp) 30 ml PO DAILY PRN PRN Reason: Constipation Metformin HCl (Metformin Hcl 500 Mg Tablet) 500 mg PO BID [facility] Last Admin: 01/24/22 08:20 Dose: 500 mg Multivitamins/Vitamin C (Multivitamin Tablet) 1 tab PO DAILY [facility] Last Admin: 01/24/22 08:20 Dose: 1 tab Omeprazole (Omeprazole 20 Mg Capsule.Dr) 20 mg PO BID@0630,1630 [facility] Last Admin: 01/24/22 08:20 Dose: 20 mg Ondansetron HCl (Ondansetron Odt 4 Mg Tab.Rapdis) 8 mg TRANSLINGU TIDWM [facility] Last Admin: 01/24/22 12:13 Dose: 8 mg Prazosin HCl (Prazosin Hcl 1 Mg Capsule) 4 mg PO BEDTIME [facility]; Protocol Last Admin: 01/23/22 21:23 Dose: 4 mg Quetiapine Fumarate (Quetiapine Fumarate 100 Mg Tablet) 100 mg PO BEDTIME [facility] Last Admin: 01/23/22 21:26 Dose: 100 mg Trazodone HCl (Trazodone Hcl 100 Mg Tablet) 200 mg PO BEDTIME [facility] Last Admin: 01/23/22 21:26 Dose: 200 mg Vitamin D (Cholecalciferol (Vitamin D3) 25 Mcg Tablet) 50 mcg PO DAILY [facility] Last Admin: 01/24/22 08:20 Dose: 50 mcg Allergies Allergies Allergy/AdvReac Type Severity Reaction Status Date / Time Benzodiazepines Allergy Intermediate Irritable Verified 08/01/21 19:03 diazepam [From Valium] Allergy Intermediate Irritable Verified 08/01/21 19:02 sulfamethoxazole Allergy Intermediate Rash Verified 08/01/21 19:01 [From Bactrim] trimethoprim [From Bactrim] Allergy Intermediate Rash Verified 08/01/21 19:01 Assessment & Plan Assessment & Plan (1) Bipolar disorder: Qualifiers: Active/Remission status: currently active Current bipolar episode type: depressed Current episode severity: moderate Qualified Code(s): F31.32 - Bipolar disorder, current episode depressed, moderate Status: Acute Code(s): F31.9 - Bipolar disorder, unspecified Plan continue home meds. added bacitracin for 5 days. explore housing situation/options with caregivers. stabilize. discharge to home once stabilized. 01/19 continue current medications, SW working on referral to [facility]. 01/20/2022. Tegretol level in the morning 01/21/2022: Tegretol level 9.9, so no changes. 01/22/22: Stable. No changes 01/24/22: Discharge 01/25/22. No changes today. I spent minutes with the patient and/or on the patient floor today, greater than?50% of which was spent counseling/coordinating care. Patient educated on: therapeutic strategies Informed Consent: understands Reason for contiued inpatient stay Substantial Risk for: stable for discharge
[2022-01-24] MEDS: clonazePAM 0.5 MG TABLET PO (16:11)
[2022-01-24 18:00] VITALS: BP 142/78; PULSE 77; RESP 16; TEMP 36.8; O2SAT 98
[2022-01-24] MEDS: Dicyclomine HCl 10 MG CAPSULE PO (19:19)
[2022-01-24] MEDS: Prazosin HCL 1 MG CAPSULE 4 MG PO (20:28)
[2022-01-24] MEDS: QUEtiapine Fumarate 100 MG TABLET PO (20:29)
[2022-01-24] MEDS: traZODone HCL 100 MG TABLET 200 MG PO (20:29)
[2022-01-24] MEDS: Famotidine 20 MG TABLET PO (20:29)
[2022-01-25] MEDS: hydrOXYzine HCL 50 MG TABLET 100 MG PO (01:57)
[2022-01-25] MEDS: Acetaminophen 325 MG TABLET 650 MG PO (01:57)
[2022-01-25 06:00] VITALS: BP 121/66; PULSE 68; TEMP 36.1; O2SAT 94
[2022-01-25] MEDS: Multivitamin TABLET 1 TAB PO (08:37)
[2022-01-25] MEDS: Cholecalciferol (Vitamin D3) 25 MCG TABLET 50 MCG PO (08:37)
[2022-01-25] MEDS: Loratadine 10 MG TABLET PO (08:37)
[2022-01-25] MEDS: Ondansetron ODT 4 MG TAB.RAPDIS 8 MG TRANSLINGU (08:37)
[2022-01-25] MEDS: metFORMIN HCl 500 MG TABLET PO (08:37)
[2022-01-25] MEDS: carBAMazepine ER 200 MG TAB.ER.12H 600 MG PO (08:38)
[2022-01-25] MEDS: Gabapentin 300 MG CAPSULE PO (08:38)
[2022-01-25] MEDS: Omeprazole 20 MG CAPSULE.DR PO (08:38)
[2022-01-25] MEDS: Fluticasone/Vilanterol 100/25 BLST.W.DEV 1 PUFF INHALE (09:41)
[2022-01-25 09:46] LABS: COVID-19 Test Negative (Negative); IDNOW Serial# 16C4AD1C
--- NOTE | 2022-01-25 15:12 | PM.PSYDC ---
DS: Providers Provider Date of Service: 01/25/22 Date of admission: 01/16/22 22:34 Date of discharge: 01/25/22 Primary care physician: Unknown Physician Admitting clinician: Luke Gallegos Attending physician on admission: Luke Gallegos Attending physician on discharge: Rojas Barone Discharging clinician: Maxine Mcmullen DS: Diagnosis Discharge Diagnosis (1) Bipolar disorder: Status: Acute DS: Medications Discharge Medications Home Medications: Home Medications Medication Instructions Recorded Confirmed albuterol sulfate 90 mcg/actuation 2 puff inhalation Q6H PRN Wheezing 08/01/21 08/01/21 aerosol inhaler ammonium lactate 12 % topical cream 1 appl topical DAILY 08/01/21 08/01/21 carboxymethylcellulose 0.5 1 drp ophthalmic (eye) QID PRN Dry 08/01/21 08/01/21 %-glycerin 0.9 % eye drops Eye(S) (Refresh Optive) cetirizine 10 mg tablet 1 tab PO DAILY 08/01/21 08/01/21 famotidine 20 mg tablet 1 tab PO DAILY 08/01/21 08/01/21 fluticasone 100 mcg-salmeterol 50 1 puff inhalation BID 08/01/21 08/01/21 mcg/dose blistr powdr for inhalation (Advair Diskus) lactase 3,000 unit tablet (Lactaid) 3,000 unit PO QID PRN Lactose 08/01/21 08/01/21 Intolerance metformin 500 mg tablet 1 tab PO BID 08/01/21 08/01/21 pantoprazole 40 mg tablet,delayed 1 tab PO BID 08/01/21 08/01/21 release trazodone 100 mg tablet 2 tab PO BEDTIME 08/01/21 08/01/21 umeclidinium 62.5 mcg/actuation 1 inh inhalation DAILY 08/01/21 08/01/21 blister powder for inhalation (Incruse Ellipta) Previous Rx's Medication Instructions Recorded cholecalciferol (vitamin D3) 25 25 mcg PO DAILY 30 days #30 tabs 08/15/21 mcg (1,000 unit) tablet clotrimazole 1 % topical cream 1 appl topical BEDTIME 15 days #5 08/15/21 grams menthol 3 % topical cream 1 appl topical QID PRN pain 30 08/15/21 days #89 mL multivitamin (Daily-Emil) 1 tab PO DAILY 30 days #30 tabs 08/15/21 trolamine salicylate-aloe vera 10 1 appl topical QID 30 days #50 08/15/21 % topical cream (Aspercreme with grams Aloe) calcium carbonate 500 mg calcium 1,000 mg PO BID #0 tabs 01/24/22 (1,250 mg) tablet (Oyster Shell Calcium 500) clonazepam 0.5 mg tablet 0.5 mg PO BID PRN anxiety #0 tabs 01/24/22 dicyclomine 10 mg capsule 10 mg PO QIDACHS PRN IBS #0 caps 01/24/22 gabapentin 300 mg capsule 300 mg PO BID #0 caps 01/24/22 hydroxyzine HCl 50 mg tablet 100 mg PO QID PRN Anxiety #240 tabs 01/24/22 ibuprofen 600 mg tablet 600 mg PO Q6H PRN Pain, Moderate 01/24/22 (Pain Scale 4-6 #0 tabs ipratropium 0.5 mg-albuterol 3 mg 3 ml inhalation Q4H PRN Shortness 01/24/22 (2.5 mg base)/3 mL nebulization Of Breath #90 mL soln ondansetron 4 mg disintegrating 8 mg translingual TIDWM #0 tabs 01/24/22 tablet prazosin 1 mg capsule 4 mg PO BEDTIME #0 caps 01/24/22 quetiapine 100 mg tablet 100 mg PO BEDTIME #0 tabs 01/24/22 trazodone 100 mg tablet 200 mg PO BEDTIME #0 tabs 01/24/22 Mental Status Exam Mental Status Exam Patient Appearance: Appropriate Patient Orientation: Person, Place, Time and Situation Level of Consciousness: Alert Patient Behavior: Appropriate, Talkative, Cooperative and Good Eye Contact Mood Description: Appropriate and Apprehensive Affect Description: Constricted Patient Cognition Impaired: No Ability to Follow Directions: Good Speech Pattern: Spontaneous Speech Memory Description: Intact Hallucinations: None Delusions: Not Present Thought Process: Intact and Distracted Thought Content: positive for Intact Judgement: Good Data Data Completed and Pending Completed studies during hospitalization [Text1]: 01/19/22 01/19/22 01/20/22 08:31 08:54 08:59 Sodium 137 Potassium 4.5 Chloride 102 Carbon Dioxide 30 H Anion Gap 10 L BUN 19 H Creatinine 0.70 Estim Creat Clear Calc 114.6 Estimated GFR > 60 POC Glucose 91 90 Random Glucose 93 Calcium 8.7 Carbamazepine COVID-19 ([facility]) COVID-19 Clin Com 01/21/22 01/23/22 01/24/22 07:56 12:26 08:50 Sodium Potassium Chloride Carbon Dioxide Anion Gap BUN Creatinine Estim Creat Clear Calc Estimated GFR POC Glucose 101 108 Random Glucose Calcium Carbamazepine 9.9 COVID-19 ([facility]) COVID-19 Clin Com 01/25/22 09:10 Sodium Potassium Chloride Carbon Dioxide Anion Gap BUN Creatinine Estim Creat Clear Calc Estimated GFR POC Glucose Random Glucose Calcium Carbamazepine COVID-19 ([facility]) Negative COVID-19 Clin Com See Note Imaging Diagnostic Imaging Impressions Ankle X-Ray 01/21/22 18:57 IMPRESSION: Soft tissue swelling at the ankle. No acute osseous findings. DS: Summary Hospital Course Hospital Course: Admission to adult psychiatry for exacerbation of symptoms of bipolar disorder and situational stress. Gabapentin was increased to BID. Pt utilized the milieu and team support and treatment to stabilize. She will return to her residential program and plans to visit her parent in the (they are her guardians). Time spent discussing smoking cessation with patient: 3 to 10 minutes Status at Discharge Functional status at discharge: independent ambulation Time Spent with Patient Time attestation: Total time spent providing and/or coordinating discharge services:40 Time spent: Greater than 30 minutes Discharge Plan Discharge Patient Disposition: Xfer Other Discharge Diagnosis: Bipolar Disorder Referrals: Partial Hospitalization Program (PHP) [Other] Dr. Morris (psychiatrist) [Other] - 02/13/22 11:00 am (In person appointment) William Carlson (therapist) [Other] Nellie Morales, [employer] [facility] [Nurse Practitioner] - 1 Week Discharge Medications: New ipratropium-albuterol 0.5 mg-3 mg(2.5 mg base)/3 mL Solution For Nebulization 3 ml inhalation Q4H PRN (Reason: Shortness Of Breath) Qty: 90 0RF dicyclomine 10 mg Capsule 10 mg PO QIDACHS PRN (Reason: IBS) Qty: 0 0RF prazosin 1 mg Capsule 4 mg PO BEDTIME Qty: 0 0RF Protocol: Hold for SBP< HOLD for SBP < : 90 clonazepam 0.5 mg Tablet 0.5 mg PO BID PRN (Reason: anxiety) Qty: 0 0RF hydroxyzine HCl 50 mg Tablet 100 mg PO QID PRN (Reason: Anxiety) Qty: 240 0RF gabapentin 300 mg Capsule 300 mg PO BID Qty: 0 0RF quetiapine 100 mg Tablet 100 mg PO BEDTIME Qty: 0 0RF calcium carbonate [Oyster Shell Calcium 500] 500 mg calcium (1,250 mg) Tablet 1,000 mg PO BID Qty: 0 0RF trazodone 100 mg Tablet 200 mg PO BEDTIME Qty: 0 0RF ibuprofen 600 mg Tablet 600 mg PO Q6H PRN (Reason: Pain, Moderate (Pain Scale 4-6) Qty: 0 0RF ondansetron 4 mg Tablet,Disintegrating 8 mg translingual TIDWM Qty: 0 0RF Continued fluticasone propion-salmeterol [Advair Diskus] 100-50 mcg/dose blister with device 1 puff inhalation BID cetirizine 10 mg tablet 1 tab PO DAILY famotidine 20 mg tablet 1 tab PO DAILY trazodone 100 mg tablet 2 tab PO BEDTIME metformin 500 mg tablet 1 tab PO BID pantoprazole 40 mg tablet,delayed release (DR/EC) 1 tab PO BID lactase [Lactaid] 3,000 unit Tablet 3,000 unit PO QID PRN (Reason: Lactose Intolerance) ammonium lactate 12 % Cream 1 appl TOPICAL DAILY albuterol sulfate 90 mcg/actuation Hfa Aerosol Inhaler 2 puff INHALATION Q6H PRN (Reason: Wheezing) Refresh Optive 0.5-0.9 % Drops 1 drp OPHTHALMIC (EYE) QID PRN (Reason: Dry Eye(S)) Incruse Ellipta 62.5 mcg/actuation Blister With Device 1 inh INHALATION DAILY multivitamin [Daily-Emil] Tablet 1 tab PO DAILY 30 Days Qty: 30 0RF clotrimazole 1 % Cream 1 appl topical BEDTIME 15 Days Qty: 5 0RF Protocol: Apply to: Apply to: affected areas Aspercreme with Aloe 10 % Cream 1 appl topical QID 30 Days Qty: 50 0RF cholecalciferol (vitamin D3) 25 mcg (1,000 unit) Tablet 25 mcg PO DAILY 30 Days Qty: 30 0RF menthol 3 % cream 1 appl topical QID PRN (Reason: pain) 30 Days Qty: 89 0RF Discontinued piroxicam 10 mg capsule 1 cap PO DAILY clonazepam 0.5 mg tablet 1 tab PO BID PRN (Reason: Anxiety) hydroxyzine pamoate 50 mg capsule 2 cap PO Q8H PRN (Reason: Anxiety) clonidine HCl 0.1 mg Tablet 0.1 mg PO BID@0900,1500 30 Days Qty: 60 0RF Protocol: Hold for SBP< HOLD for SBP < : 90 prazosin 1 mg Capsule 3 mg PO BID 30 Days Qty: 180 0RF Protocol: Hold for SBP< HOLD for SBP < : 90 prazosin 5 mg Capsule 5 mg PO BID 30 Days Qty: 60 0RF Protocol: Hold for SBP< HOLD for SBP < : 90 clonidine HCl 0.2 mg Tablet 0.4 mg PO BEDTIME 30 Days Qty: 60 0RF Protocol: Hold for SBP< HOLD for SBP < : 90 carbamazepine 200 mg Tablet Extended Release 12 Hr 800 mg PO BID 30 Days Qty: 240 0RF gabapentin 300 mg Capsule 600 mg PO TID 30 Days Qty: 180 0RF Discharge Orders: Discharge Order (Routine); Ordered 01/25/22 Ordered By: Maxine Mcmullen Diet: Advance to usual diet Activity on Discharge: As tolerated Stand Alone Forms: Patient Portal Discharge page, Community Support Care Plan Goals: Mood Stabilization Health Concerns: Diabetes Sleep Apnea Bipolar Disorder Plan of Treatment: Continue your medication regime as instructed. --During your hospitalization, Gabapentin was changed to 300 mg twice per day Attend follow up appointments Practice coping skills Call/Return as needed Assessment: non-psychotic, non-suicidal Discharge Date/Time: 01/25/22 11:05
== END 2022-01-25 11:05 | disposition other institution (70) | DRG 885 ==
LOC: HO.PADLT16 01-17 12:10 → HO.PM5 01-20 10:25
PROVIDERS: Psychiatry & Neurology Psychiatry; Admitting Provider Psychiatry & Neurology Psychiatry; Visit Provider Clinical Nurse Specialist Psychiatric/Mental Health, Adult
DX: F31.32 Bipolar disorder, current episode depressed, moderate (principal); R45.851 Suicidal ideations; E11.9 Type 2 diabetes mellitus without complications; F44.5 Conversion disorder with seizures or convulsions; K21.9 Gastro-esophageal reflux disease without esophagitis; G47.33 Obstructive sleep apnea (adult) (pediatric); Z20.822 Contact with and (suspected) exposure to COVID-19; Z87.820 Personal history of traumatic brain injury; Z91.52 Personal history of nonsuicidal self-harm; Z88.2 Allergy status to sulfonamides; Z88.8 Allergy status to other drugs, medicaments and biological substances; Z79.51 Long term (current) use of inhaled steroids; Z79.84 Long term (current) use of oral hypoglycemic drugs; Z79.899 Other long term (current) drug therapy
CPT/HCPCS: 36415; 73600; 80048; 80156; 82947; 87635; 94640

== ENCOUNTER 2022-12-19 18:03 | Inpatient (IN) | payer OTHER, SELFPAY ==
[2022-12-19 18:25] VITALS: BP 175/99; PULSE 91; RESP 18; TEMP 36.5; O2SAT 96; BMI 42.0
--- NOTE | 2022-12-19 18:29 | PC.NURSE ---
Patient requested that no information be given to anyone who calls to ask about her. This information is documented on the report sheet for next shift.
--- NOTE | 2022-12-19 18:35 | ED_ITS ---
HPI - Psych General Chief Complaint: Psychiatric Symptoms Stated Complaint: SI Time Seen by Provider: 12/19/22 18:25 Source: patient Mode of arrival: EMS Limitations: no limitations History of Present Illness HPI Narrative: Patient comes [facility] the emergency room from her [facility] complaining of feeling manicky, panicky, dissociative and feels like sticking a knife into her throat. According to EMS, the [facility] staff reported the patient has been having some roommate issues. Patient denies hurting herself today or ingesting any substances to hurt herself. Patient states that she feels very edgy and thinks that the only way getting better is going inpatient. Denies HI Related Data Home Medications Medication Instructions Recorded Confirmed fluticasone 100 mcg-salmeterol 50 1 puff inhalation BID 08/01/21 12/19/22 mcg/dose blistr powdr for inhalation (Advair Diskus) lactase 3,000 unit tablet (Lactaid) 3,000 unit PO QID PRN Lactose 08/01/21 12/19/22 Intolerance umeclidinium 62.5 mcg/actuation 1 inh inhalation QAM 08/01/21 12/19/22 blister powder for inhalation (Incruse Ellipta) carbamazepine 400 mg 400 mg PO TID 12/19/22 12/19/22 tablet,extended release,12 hr cetirizine 10 mg tablet 10 mg PO DAILY 12/19/22 12/19/22 cholecalciferol (vitamin D3) 25 25 mcg PO QAM 12/19/22 12/19/22 mcg (1,000 unit) tablet docusate sodium 100 mg capsule 100 mg PO QAM 12/19/22 12/19/22 famotidine 40 mg tablet 40 mg PO BID 12/19/22 12/19/22 gabapentin 400 mg capsule 400 mg PO TID 12/19/22 12/19/22 metformin 500 mg tablet,extended 1,000 mg PO DAILY@1700 12/19/22 12/19/22 release 24 hr pantoprazole 40 mg tablet,delayed 40 mg PO BID 12/19/22 12/19/22 release piroxicam 10 mg capsule 10 mg PO BID 12/19/22 12/19/22 prazosin 2 mg capsule 4 mg PO BEDTIME 12/19/22 12/19/22 Previous Rx's Medication Instructions Recorded multivitamin (Daily-Emil tablet) 1 tab PO DAILY 30 days #30 tabs 08/15/21 calcium carbonate 500 mg calcium 1,000 mg PO BID #0 tabs 01/24/22 (1,250 mg) tablet (Oyster Shell Calcium 500) dicyclomine 10 mg capsule 10 mg PO QIDACHS PRN IBS #0 caps 01/24/22 hydroxyzine HCl 50 mg tablet 100 mg PO QID PRN Anxiety #240 tabs 01/24/22 ipratropium 0.5 mg-albuterol 3 mg 3 ml inhalation Q4H PRN Shortness 01/24/22 (2.5 mg base)/3 mL nebulization Of Breath #90 mL soln ondansetron 4 mg disintegrating 8 mg translingual TIDWM #0 tabs 01/24/22 tablet quetiapine 100 mg tablet 100 mg PO BEDTIME #0 tabs 01/24/22 trazodone 100 mg tablet 200 mg PO BEDTIME #0 tabs 01/24/22 Allergies Allergy/AdvReac Type Severity Reaction Status Date / Time Benzodiazepines Allergy Intermediate Irritable Verified 08/01/21 19:03 diazepam [From Valium] Allergy Intermediate Irritable Verified 08/01/21 19:02 sulfamethoxazole Allergy Intermediate Rash Verified 08/01/21 19:01 [From Bactrim] trimethoprim [From Bactrim] Allergy Intermediate Rash Verified 08/01/21 19:01 Review of Systems Review of Systems: Constitutional : No Weight loss, No Fever, No Chills, No Night Sweats, No Fatigue, No Malaise ENT/Mouth : No Hearing loss, No Ear Pain, No Nasal Congestion, No Sinus Pain, No Hoarseness, No sore throat, No Rhinorrhea, No Swallowing Difficulty Eyes: No Eye Pain, No Swelling, No Redness, No Foreign Body, No Discharge, No Vision Changes Cardiovascular : No Chest Pain, No SOB, No Dyspnea on Exertion, No Orthopnea, No Edema, No Palpitations Respiratory : No Cough, No Sputum, No Wheezing, No Smoke Exposure, No Dyspnea Gastrointestinal : No Nausea, No Vomiting, No Diarrhea, No Constipation, No abdo john Pain, No Hematochezia, No Melena Genitourinary : no irregular bleeding, No Dysuria, No Urinary Frequency, No Hematuria, No Urinary Incontinence, No Urgency, No Flank Pain, No Urinary Flow Changes, No Hesitancy Musculoskeletal : No joint pain, No Myalgias, No Joint Swelling Skin : No Skin Lesions, No rash Neuro : No Weakness, No Numbness, No Paresthesias, No Loss of Consciousness, No Dizziness, No Headache Psych : Feeling anxious, SI, no HI Heme/Lymph: No Bruising, No Bleeding,No Lymphadenopathy Endocrine : No Polyuria, No Polydipsia, No Temperature Intolerance [facility] Past Medical History Medical History Asthma Diabetes mellitus, type 2 GERD (gastroesophageal reflux disease) Hearing loss Sleep apnea Social History Social History Household Members: Other Household Members Other:: 2 Housing: Other Housing Other:: [facility] Patient Tobacco Use Status: Never used Tobacco e-Cigarette/Vaping Use: Never Used Advance Directives: No Advance Directives Information Provided: No service: No Sexual orientation: Did not discuss. Physical Exam Vital Signs: Vital Signs: Last Vital Signs Temp 97.7 F 12/19/22 18:25 Pulse 91 12/19/22 18:25 Resp 18 12/19/22 18:25 BP 175/99 H 12/19/22 18:25 Pulse Ox 96 12/19/22 18:25 O2 Del Method Room Air 12/19/22 18:25 BMI result Body Mass Index 42.0 Const: Other: Appearance: Alert. Oriented X3. No acute distress. Eyes: Pupils equal, round and reactive to light. ENT: Pharynx normal. Neck: Normal inspection. Neck supple. No lymph nodes noted. No crepitus CVS: Normal heart rate and rhythm. Pulses normal. Normal S1 and S2 Respiratory: No respiratory distress. Breath sounds normal. No Wheezing. No rales Abdomen: Soft and nontender. No rigidity. No distention. Skin: Skin warm and dry. Normal skin color. Normal skin turgor. Extremities: No lower extremity edema. No Lacerations. No Rash Neuro: Oriented X 3. No motor deficit. No sensory deficit. Moving all extremities. No slurred speech. CN 2 through 12 grossly intact Psych: calm, cooperative, anxious, seems to have a bit of pressured speech Course Course Course Narrative: -care team consult pending -patient has chronic anemia -physician observation started at 20:20 Medications Administered Discontinued Medications Generic Name Dose Route Start Last Admin Trade Name Stephen PRN Reason Stop Dose Admin Hydroxyzine HCl 100 mg 12/19/22 19:08 12/19/22 19:39 Hydroxyzine Hcl 50 Mg Tablet PO 12/19/22 19:09 100 mg ONCE ONE Administration Medical Decision Making Lab Data 12/19/22 19:02 12/19/22 19:02 Labs: Lab Results 12/19/22 12/19/22 12/19/22 Range/Units 18:45 19:02 19:02 WBC 9.4 (4.8-10.8) X10*3/uL RBC 3.98 L (4.20-5.50) X10*6/uL Hgb 9.0 L (12.0-16.0) g/dl Hct 30.7 L (37.0-47.0) % MCV 77.1 L (80.0-98.0) fL MCH 22.6 L (27.0-33.0) pg MCHC 29.3 L (31.0-35.0) g/dl RDW 17.2 H (11.0-16.0) % Plt Count 238 (160-400) X10*3/uL MPV 9.2 L (9.4-12.3) fL Immature Gran % (Auto) 1.0 H (0.0-0.4) % Neut % (Auto) 69.6 (45-73) % Lymph % (Auto) 20.4 (20-40) % [place] % (Auto) 6.4 (2-11) % Eos % (Auto) 2.3 (0-4) % Baso % (Auto) 0.3 (0-2) % Lymph # (Auto) 1.9 (1.2-4.9) X10*3/uL [place] # (Auto) 0.6 (0.1-1.2) X10*3/uL Eos # (Auto) 0.2 (0.0-0.4) X10*3/uL Baso # (Auto) 0.0 (0.0-0.2) X10*3/uL Abs Immat Gran (auto) 0.09 H (0.00-0.03) X10*3/uL Absolute Neuts (auto) 6.5 (2.0-8.3) x10*3/uL Absolute Nucleated RBC 0.000 (0.0-0.012) X10*3/uL Nucleated RBC % (auto) 0.0 (0.0-0.2) /100WBC Sodium 143 (135-145) mmol/L Potassium 3.9 (3.3-5.1) mmol/L Chloride 108 (96-108) mmol/L Carbon Dioxide 27 (22-29) mmol/L Anion Gap 12 (12-20) BUN 16 (9-16) mg/dL Creatinine 0.74 (0.5-1.4) mg/dL Estim Creat Clear Calc 94.1 Estimated GFR > 60 Random Glucose 123 H (60-115) mg/dL Calcium 9.0 (8.4-10.2) mg/dL Total Bilirubin 0.2 (0.0-1.0) mg/dL AST 23 (5-31) U/L ALT 20 (0-31) U/L Alkaline Phosphatase 115 (39-117) U/L Total Protein 7.0 (6.5-8.0) g/dL Albumin 4.1 (3.5-5.0) g/dL Ethyl Alcohol mg/dL COVID-19 ([facility]) Negative (Negative) COVID-19 Clin Com See Note 12/19/22 Range/Units 19:02 WBC (4.8-10.8) X10*3/uL RBC (4.20-5.50) X10*6/uL Hgb (12.0-16.0) g/dl Hct (37.0-47.0) % MCV (80.0-98.0) fL MCH (27.0-33.0) pg MCHC (31.0-35.0) g/dl RDW (11.0-16.0) % Plt Count (160-400) X10*3/uL MPV (9.4-12.3) fL Immature Gran % (Auto) (0.0-0.4) % Neut % (Auto) (45-73) % Lymph % (Auto) (20-40) % [place] % (Auto) (2-11) % Eos % (Auto) (0-4) % Baso % (Auto) (0-2) % Lymph # (Auto) (1.2-4.9) X10*3/uL [place] # (Auto) (0.1-1.2) X10*3/uL Eos # (Auto) (0.0-0.4) X10*3/uL Baso # (Auto) (0.0-0.2) X10*3/uL Abs Immat Gran (auto) (0.00-0.03) X10*3/uL Absolute Neuts (auto) (2.0-8.3) x10*3/uL Absolute Nucleated RBC (0.0-0.012) X10*3/uL Nucleated RBC % (auto) (0.0-0.2) /100WBC Sodium (135-145) mmol/L Potassium (3.3-5.1) mmol/L Chloride (96-108) mmol/L Carbon Dioxide (22-29) mmol/L Anion Gap (12-20) BUN (9-16) mg/dL Creatinine (0.5-1.4) mg/dL Estim Creat Clear Calc Estimated GFR Random Glucose (60-115) mg/dL Calcium (8.4-10.2) mg/dL Total Bilirubin (0.0-1.0) mg/dL AST (5-31) U/L ALT (0-31) U/L Alkaline Phosphatase (39-117) U/L Total Protein (6.5-8.0) g/dL Albumin (3.5-5.0) g/dL Ethyl Alcohol < 10 mg/dL COVID-19 ([facility]) (Negative) COVID-19 Clin Com Discharge Plan Discharge Clinical Impression: Acute anxiety, Suicidal ideation Patient Disposition: Still a Patient Prescriptions: No Action ipratropium-albuterol 0.5 mg-3 mg(2.5 mg base)/3 mL Solution For Nebulization 3 ml inhalation Q4H PRN (Reason: Shortness Of Breath) Qty: 90 0RF dicyclomine 10 mg Capsule 10 mg PO QIDACHS PRN (Reason: IBS) Qty: 0 0RF hydroxyzine HCl 50 mg Tablet 100 mg PO QID PRN (Reason: Anxiety) Qty: 240 0RF quetiapine 100 mg Tablet 100 mg PO BEDTIME Qty: 0 0RF calcium carbonate [Oyster Shell Calcium 500] 500 mg calcium (1,250 mg) Tablet 1,000 mg PO BID Qty: 0 0RF trazodone 100 mg Tablet 200 mg PO BEDTIME Qty: 0 0RF ondansetron 4 mg Tablet,Disintegrating 8 mg translingual TIDWM Qty: 0 0RF fluticasone propion-salmeterol [Advair Diskus] 100-50 mcg/dose blister with device 1 puff inhalation BID lactase [Lactaid] 3,000 unit Tablet 3,000 unit PO QID PRN (Reason: Lactose Intolerance) Incruse Ellipta 62.5 mcg/actuation Blister With Device 1 inh INHALATION QAM multivitamin [Daily-Emil] Tablet 1 tab PO DAILY 30 Days Qty: 30 0RF prazosin 2 mg capsule 4 mg PO BEDTIME gabapentin 400 mg capsule 400 mg PO TID metformin 500 mg tablet extended release 24 hr 1,000 mg PO DAILY@1700 piroxicam 10 mg capsule 10 mg PO BID cholecalciferol (vitamin D3) 25 mcg (1,000 unit) tablet 25 mcg PO QAM cetirizine 10 mg tablet 10 mg PO DAILY famotidine 40 mg tablet 40 mg PO BID pantoprazole 40 mg tablet,delayed release (DR/EC) 40 mg PO BID carbamazepine 400 mg tablet extended release 12 hr 400 mg PO TID docusate sodium 100 mg capsule 100 mg PO QAM Interventions: [place]-Suicide Risk Severity Scale Last Done: 12/19/22 18:28
--- OUTSIDE RECORDS SUMMARY | 2022-12-19 18:39 | XMS_ITS | Continuity of Care Document ---
Author Name Unknown Organization [facility] ter Address [address] [place] [id number]- Care Team Providers Care Lead Burner Name Role Phone Melissa Guevara Primary Care Physician Encounter [facility] [place] Date(s): 10/01/22 - 10/03/[address] [address]- Encounter Diagnosis COVID-19(Final) - 10/02/22 Discharge Disposition: A-D/C Home Attending Physician: Christopher Morris MD Admitting Physician: Christopher Morris MD Referring Physician: Not on Staff, Referring MD Allergies, Adverse Reactions, Alerts Substance Reaction Severity Status naproxen unknown Active sulfa drugs Active benzodiazepines unknown Active Valium Active Bactrim unknown Active Benadryl Unknown Unknown Active OxyCONTIN Unknown Unknown Active Immunizations Given and Recorded Vaccine Date Status Refusal Reason influenza virus vaccine, inactivated 05/02/22 Tuan rded influenza virus vaccine, inactivated 08/02/21 Tuan rded influenza virus vaccine, inactivated 04/24/21 Tuan rded influenza virus vaccine, inactivated 03/27/21 Tuan rded influenza virus vaccine, inactivated 05/30/20 Tuan rded influenza virus vaccine, inactivated 04/07/20 Tuan rded influenza virus vaccine, inactivated 07/31/19 Tuan rded influenza virus vaccine, inactivated 04/16/19 Tuan rded influenza virus vaccine, inactivated 04/07/18 Tuan rded influenza virus vaccine, inactivated 03/11/17 Tuan rded influenza virus vaccine, inactivated 03/30/16 Tuan rded influenza virus vaccine, inactivated 04/08/14 Tuan rded influenza virus vaccine, inactivated 04/10/13 Tuan rded [id number] 12y+ bivalent booster vax 05/02/22 Recorded zoster vaccine, inactivated 03/30/22 Recorded SARS-CoV-2 (COVID-19) mRNA-1273 vaccine 12/27/21 R ecorded SARS-CoV-2 (COVID-19) mRNA-1273 vaccine 12/04/21 R ecorded SARS-CoV-2 (COVID-19) mRNA-1273 vaccine 06/22/21 R ecorded Tetanus Toxoid 07/31/21 Recorded tetanus/diphtheria/pertussis, acel(Tdap) 07/30/21 Recorded tetanus/diphtheria/pertussis, acel(Tdap) 08/13/13 Recorded SARS-CoV-2 (COVID-19) mRNA BNT-162b2 vac 07/05/21 Recorded SARS-CoV-2 (COVID-19) mRNA BNT-162b2 vac 10/11/20 Recorded SARS-CoV-2 (COVID-19) mRNA BNT-162b2 vac 09/20/20 Recorded SARS-CoV-2 (COVID-19) mRNA BNT-162b2 vac 08/25/20 Recorded SARS-CoV-2 (COVID-19) mRNA BNT-162b2 vac 08/04/20 Recorded pneumococcal 23-valent vaccine 06/29/20 Recorded pneumococcal 23-valent vaccine 12/19/18 Given influenza virus vaccine, live 04/21/15 Recorded hepatitis B adult vaccine 10/22/13 Recorded hepatitis B adult vaccine 08/27/13 Recorded Medications Advair Diskus 100 mcg-50 mcg inhalation powder 1 PUFF, Inhalation, 2 times a day, Refills 0, Maintenance, 03/29/21 15:01:00 EDT Start Date: 03/29/21 Status: Ordered albuterol CFC free 90 mcg/inh inhalation aerosol 180 mcg, 2, puffs, Inhalation, Every 4 hours, PRN, Refills 0, Maintenance, 03/13/22 21:21:00 EDT, Inhaler Start Date: 03/13/22 Status: Ordered albuterol-ipratropium 3 mg-0.5 mg/3 ml inhalation solution 3 mL, Neb, 2 times a day, 0 Refills, Maintenance, 12/08/21 9:06:00 EDT, Solution, ; Start Date: 12/08/21 Status: Ordered ammonium lactate 10% topical cream 1 application, Topically, Daily, PRN as needed, 0 Refills, Maintenance, 03/29/21 15:03:00 EDT, ; Start Date: 03/29/21 Status: Ordered Keith-Gest 500 mg oral tablet, chewable 2 tablet = 1,000 mg, By Mouth, Every 8 hours, PRN Dyspepsia, 0 Refills, Maintenance, 03/29/21 15:04:00 EDT, ; Start Date: 03/29/21 Status: Ordered cetirizine 10 mg oral tablet 1 tablet = 10 mg, By Mouth, Daily, Maintenance, 03/06/22 12:28:00 EDT, Tablet, ; Start Date: 03/06/22 Status: Ordered Culturelle Capsule 1 capsule, By Mouth, Daily, 0 Refills, Maintenance, 03/29/21 15:06:00 EDT, ; Start Date: 03/29/21 Status: Ordered D3 1000 oral tablet 1 tablet = 1,000 International_Units, By Mouth, Daily, 0 Refills, Maintenance, 12/18/18 11:45:21 EDT Start Date: 12/18/18 Status: Ordered diclofenac 1% topical gel 1 application, Topically, 4 times a day, 0 Refills, Maintenance, 12/08/21 9:04:00 EDT, Gel, Parti; Start Date: 12/08/21 Status: Ordered dicyclomine 10 mg oral capsule 1 capsule = 10 mg, By Mouth, 4 times a day, PRN Dyspepsia, # 120 capsule, 1 Refills, Maintenance, 03/13/22 21:18:00 EDT, Capsule, [id number], Partial fill upon patient requestif the prescription is for a schedule II opioid angela... Start Date: 03/13/22 Status: Ordered Ecotrin 325 mg oral delayed release tablet 1 tablet = 325 mg, By Mouth, Daily, # 30 tablet, 0 Refills, Maintenance, 04/04/21 7:13:00 EDT, EC Tablet, Partial fill upon patient request if the prescription is for a schedule II opioid drug. Start Date: 04/04/21 Status: Ordered famotidine 20 mg oral tablet 20 mg, 1, tablet, By Mouth, Daily at bedtime, # 30 tablet, Refills 1, Tot. Refills 1, Maintenance, 03/13/22 21:19:00 EDT, Route to Pharmacy Electronically, [id number], Partialfill upon patient request if the prescription is fo... Start Date: 03/13/22 Status: Ordered gabapentin 300 mg oral capsule 300 mg, 1, capsule, By Mouth, 3 times a day, # 90 capsule, Refills 1, Tot. Refills 1, Maintenance, 03/13/22 21:19:00 EDT, Route to Pharmacy Electronically, [id number], Partialfill upon patient request if the prescription is fo... Start Date: 03/13/22 Status: Ordered gabapentin 400 mg oral capsule 400 mg, Capsule, By Mouth, 10/02/22 21:00:00 EDT Start Date: 10/02/22 Stop Date: 10/02/22 Status: Completed gabapentin 400 mg oral capsule 400 mg, Capsule, By Mouth, 10/03/22 9:00:00 EDT Start Date: 10/03/22 Stop Date: 10/03/22 Status: Completed guaiFENesin 100 mg/5 mL oral liquid 5 mL = 100 mg, By Mouth, Every 4 hours, PRN for cough, 0 Refills, Maintenance, 12/08/21 9:01:00 EDT, Liquid, ; Start Date: 12/08/21 Status: Ordered hydrOXYzine pamoate 50 mg oral capsule 2 capsule = 100 mg, By Mouth, 3 times a day, PRN as needed, # 180 capsule, 1 Refills, Maintenance, 03/13/22 21:19:00 EDT, Capsule, [id number], Partial fill upon patient request if the prescription is for a schedule II opioid Start Date: 03/13/22 Status: Ordered Incruse Ellipta 62.5 mcg/inh inhalation powder 1 puff, Inhalation, Daily, 0 Refills, Maintenance, 03/29/21 15:08:00 EDT, ; Start Date: 03/29/21 Status: Ordered lactase 3000 u oral tablet 2 tablets, By Mouth, 3 times a day, PRN Other, 0 Refills, Maintenance, 12/18/18 11:42:28 EDT Start Date: 12/18/18 Status: Ordered Lotrisone 0.05%-1% cream Topically, Daily at bedtime, PRN Other, 0 Refills, Maintenance, 03/29/21 15:15:00 EDT, Partial fillupon patient request if the prescription is for a schedule II opioid drug. Start Date: 03/29/21 Status: Ordered MetFORMIN (Eqv-Glucophage XR) 500 mg oral tablet, extended release 2 tablet = 1,000 mg, By Mouth, Daily, # 60 tablet, 1 Refills, Maintenance, 03/13/22 21:20:00 EDT, ER Tablet, [facility]-[id number], Partial fill upon patient request if the prescription is for a schedule II opioid drug., 157.48, cm, 03/13... Start Date: 03/13/22 Status: Ordered Minipress 1 mg oral capsule 2 mg, 2, capsule, By Mouth, Daily at bedtime, # 60 capsule, Refills 1, Tot. Refills 1, Maintenance,03/13/22 21:20:00 EDT, Route to Pharmacy Electronically, [facility]-[id number], Partial fill upon patient request if the prescription is f... Start Date: 03/13/22 Status: Ordered Multivitamin 1 tablet, Daily, 0 Refills, Maintenance, 12/08/21 9:07:00 EDT, ; Start Date: 12/08/21 Status: Ordered piroxicam 10 mg oral capsule 1 capsule = 10 mg, By Mouth, 2 times a day, 0 Refills, Maintenance, 03/29/21 15:11:00 EDT, ; Start Date: 03/29/21 Status: Ordered prazosin 1 mg oral capsule 4 mg, Capsule, By Mouth, Hold for: SBP<90 and/or DBP<60, 10/02/22 21:00:00 EDT Start Date: 10/02/22 Stop Date: 10/02/22 Status: Completed Protonix 40 mg oral delayed release tablet 1 tablet = 40 mg, By Mouth, 2 times a day, 0 Refills, Maintenance, 03/29/21 15:15:00 EDT Start Date: 03/29/21 Status: Ordered Refresh - solution 1 drops, Eyes, Both, 4 times a day, PRN for dry eyes, 0 Refills, Maintenance, 12/08/21 9:07:00 EDT,Solution, ; Start Date: 12/08/21 Status: Ordered SEROquel 100 mg oral tablet 100 mg, 1, tablet, By Mouth, Daily at bedtime, # 30 tablet, Refills 1, Tot. Refills 1, Maintenance,03/13/22 21:20:00 EDT, Route to Pharmacy Electronically, [facility]-[id number], Partial fill upon patient request if the prescription is f... Start Date: 03/13/22 Status: Ordered TEGretol XR 400 mg oral tablet, extended release 400 mg, 1, tablet, By Mouth, Every 12 hours, # 60 tablet, Refills 1, Tot. Refills 1, Maintenance, 03/13/22 21:18:00 EDT, Route to Pharmacy Electronically, [id number], Partial fill upon patient request if the prescription is for... Start Date: 03/13/22 Status: Ordered [place] Active Muscle Rub 1 application, Topically, 4 times a day, PRN as needed, Maintenance, 03/06/22 12:42:00 EDT, ; Start Date: 03/06/22 Status: Ordered traZODone 100 mg oral tablet 200 mg, 2, tablet, By Mouth, Daily at bedtime, # 60 tablet, Refills 1, Tot. Refills 1, Maintenance,03/13/22 21:21:00 EDT, Route to Pharmacy Electronically, [facility]-[id number], Partial fill upon patient request if the prescription is f... Start Date: 03/13/22 Status: Ordered Problem List Condition Confirmation Course Effective Dates Status Health St atus Informant Severe obesity Confirmed Active Results Radiology Reports * Exam Date Time Procedure Performing Provider Status 10/01/22 5:42 PM Chest 2 Views Frontal and Lat Radha Rizo; Auth (Verified) Notes: (Chest 2 Views Frontal and Lat) Reason For Exam: Shortness of Breath, Fever;Other: RESULT: Chest 2 Views Frontal and Lat Chest 2 Views Frontal and Lat Hx of Present Illness: reporting SI; Reason: Other:; Shortness of Breath, Fever; Clinical Question(s): Pneumonia COMPARISON: None. FINDINGS: LINES AND TUBES: None. LUNGS AND PLEURA: Low lung volumes with mild basilar atelectasis. Lungs are otherwise clear with no consolidation. No pleural effusion. No pneumothorax. HEART, MEDIASTINUM AND HENRRY: Heart is normal in size. Normal mediastinal and hilar contour. BONES AND SOFT TISSUES: No acute abnormality. IMPRESSION: No radiographic evidence of an acute cardiopulmonary process. WSN: [id number] Ordering Physician: Kari Mayer Dictated By: Lv Flores MD Dictated Date/Time: 10/01/22 6:02 pm Reviewed By: Lv Flores MD Signed By: Lv Flores MD Signed Date/Time: 10/01/22 6:02 pm Transcribed By: KENDY Transcribed Date/Time: 10/01/22 6:01 pm Vital Signs Most recent to oldest [Reference Range]: 1 2 3 Oxygen Saturation [94-100 %] 99 % (10/03/22 1:58 PM) 96 % (10/03/22 6:21 AM) 95 % (10/02/22 11:28 PM) Pulse Rate [55-90 bpm] 81 bpm (10/03/22 1:58 PM) 91 bpm *H* (10/03/22 6:21 AM) 85 bpm (10/02/22 11:28 PM) Blood Pressure [90-138/55-84 mm Hg] 129/79mm Hg (10/03/22 1:58 PM) 113/55mm Hg (10/03/22 6:21 AM) 136/89mm Hg (10/02/22 11:29 PM) Respiratory Rate [16-30 br/min] 14 br/min *L* (10/03/22 9:56 AM) 20 br/min (10/03/22 6:21 AM) 13 br/min *L* (10/03/22 12:30 AM) Temperature [96.8-100.4 DegF] 98.7 DegF (10/03/22 1:58 PM) 98.8 DegF (10/02/22 5:46 PM) 99 DegF (10/02/22 8:37 AM) Mode of Delivery (Oxygen) Room air (10/03/22 1:58 PM) Room air (10/03/22 6:21 AM) Room air (10/02/22 11:28 PM) Blood pressure sites Arm, right (10/03/22 1:58 PM) Arm, right (10/02/22 11:28 PM) Arm, left (10/02/22 5:46 PM) Temperature Route Oral (10/03/22 1:58 PM) Oral (10/02/22 5:46 PM) Oral (10/02/22 8:37 AM) Hospital Progress note * Bob VERMA, Cayla Anderson: PERFORM, MODIFY Event Display: Progress Note Hospital Authored Date: [id number] Patient: ??NAMAN MORA ? Age:??52 Years?Sex:??Female?:??1970?? Subjective Chief complaint:?Medication management ?? Patient seen, chart reviewed, and discussed with treatment team.? Interval History: No acute overnight events. Trough Tegretol level this morning was 6.4. Patient??is??sitting calmly at bedside watching TV.??Denies any adverse effects on current medication regimen.Reports poor appetite due to Covid-induced ageusia. Tossed and turned overnight but reports this is an improvement over previous nights despite not having her CPAP. ADLs??appear fair. ??Able to make needs known.??Reports having a couple of episodes of diarrhea and attributes this to acid reflux or anxiety. Patient denies any additional??symptoms concerning for anxiety, depression, robert, psychosis or PTSD. Patient denies any suicidal ideation, homicidal ideation or desires for self-injurious behaviors.? Review of Systems Pertinent positives as listed above in HPI. ??Otherwise, remainder of review of systems negative. Objective Vital Signs?? Temperature: 98.8 DegF (10/02/22 17:46:00) Temperature Route: Oral (10/02/22 17:46:00) Pulse Rate:??91 bpm??High (10/03/22 06:21:00) Respiratory Rate:??14 br/min??Low (10/03/22 09:56:00) Systolic Blood Pressure: 113 mm Hg (10/03/22 06:21:00) Diastolic Blood Pressure: 55 mm Hg (10/03/22 06:21:00) Blood pressure sites: Arm, right (10/02/22 23:28:00) Mean Arterial Pressure: 74 mm Hg (10/03/22 06:21:00) Pulse Pressure: 58 mm Hg (10/03/22 06:21:00) Oxygen Saturation: 96 % (10/03/22 06:21:00) Mode of Delivery (Oxygen): Room air (10/03/22 06:21:00) ? Physical Exam ?? MENTAL STATUS EXAMINATION Appearance: disheveled, overweight; normal eye contact Attitude: cooperative Motor Activity: calm, no involuntary movements or abnormalities of motor tone; coordination unremarkable, not observed ambulating Sight and hearing: intact Mood: euthymic, mildly anxious Affect: full range, stable Speech: normal amount; fluent; normal rate; normal prosody - spontaneous, good articulation, clear tone, appropriately placed inflections; normal volume Perception: no impairment - denies auditory and visual hallucinations; no objective impairment, preoccupation, or responding to internal stimuli?? Cognition: oriented to person/place/time/situation/object, memory intact, appropriate level of abstraction Judgment: fair Insight: aware that she has a mental illness and needs help Thought Process: normal productivity, goal-directed Thought Content: congruent to mood and circumstances; denies current suicidal ideas, suicide plans,and suicide intent, including active or passive thoughts of suicide or ; denies current aggressive or psychotic ideas, including thoughts of physical or sexual aggression or homicide? Adherence: good Reliability:??fair historian Suicidality/Self-destructive Behavior: none Homicidality/Violence: none?? _ Inpatient Medications Medications (19) Active SCHEDULED: (13) Aspirin 325 mg EC Tablet (aspirin 325 mg oral delayed release tablet) ??325 mg, By Mouth, Daily Breo Ellipta 100 mcg / 25 mcg Inhaler (Breo Ellipta 100 mcg-25 mcg Inhaler) ??1 puffs, Inhalation, Daily Carbamazepine 100 mg XR Tablet (carBAMazepine 100 mg oral tablet, extended release) ??600 mg, By Mouth, Daily in AM Carbamazepine 100 mg XR Tablet (carBAMazepine 100 mg oral tablet, extended release) ??200 mg, By Mouth, Daily Carbamazepine 400 mg XR Tablet (carBAMazepine 400 mg oral tablet, extended release) ??400 mg, By Mouth, Daily Cetirizine 5 mg / 5mL Syrup (UD) (Cetirizine Liquid) ??10 mg 10 mL, By Mouth, Daily Dicyclomine 10 mg Capsule (dicyclomine 10 mg oral capsule) ??10 mg 1 capsule, By Mouth, 4 times a day Gabapentin 400 mg Capsule (gabapentin 400 mg oral capsule) ??400 mg, By Mouth, 3 times a day Metformin 500 mg Tablet (metFORMIN 500 mg oral tablet) ??500 mg 1 each, By Mouth, Daily Pantoprazole 40 mg EC Tablet (pantoprazole 40 mg oral delayed release tablet) ??40 mg, By Mouth, 2 times a day Prazosin 1 mg Capsule (prazosin 1 mg oral capsule) ??4 mg, By Mouth, Daily at bedtime Quetiapine 100 mg Tablet (QUEtiapine 100 mg oral tablet) ??100 mg, By Mouth, Daily at bedtime Trazodone 50 mg Tablet (traZODone 50 mg oral tablet) ??200 mg, By Mouth, Daily at bedtime CONTINUOUS: (0) PRN: (6) Acetaminophen 325 mg Tablet (Acetaminophen Tablet) ??650 mg, By Mouth, Every 8 hours Al hydroxide/Mg hydroxide/simethicone 200 mg-200 mg-20 mg/5 mL Susp UD (Maalox Plus Liquid) ??30 mL, By Mouth, Every 8 hours Albuterol 90mcg/Inhalation Inhaler HFA (Ventolin 90 mcg Inhaler) ??180 mcg 2 puffs, Inhalation, Every 6 hours Haloperidol 5 mg Tablet (haloperidol 5 mg oral tablet) ??5 mg, By Mouth, Every 6 hours HydrOXYzine Pamoate 25mg Capsule (hydrOXYzine pamoate 25 mg oral capsule) ??100 mg, By Mouth, Every6 hours Melatonin 3 mg Tablet (Melatonin Tablet) ??9 mg, By Mouth, Daily at bedtime ? Results Recent Labs CHEM GENERAL Glucose, POC 93 mg/dL ()?? 10/03/2022 07:39 ?? TOXICOLOGY/TDM Carbamazepine Level 6.4 mg/L ()?? 10/03/2022 07:24 ? Assessment/Plan ?? Assessment? In brief, this is a a 52-year-old female with past medical history significant for asthma, chronic pain disorder, diabetes, GERD, mood disorder, depression who initially presented to [facility] for suicidal ideation. At this point in time, the patient has been medically cleared and referred to??crisis clinicians??for evaluation and assistance with disposition for potential inpatient psychiatric hospitalization. The emergency psychiatry service was consulted for assistance with medication management. Reviewed medical records, crisis evaluations, collateral, and test results. Patient had COVID-19 two weeks ago and is currently taking a round of steroids for an asthma exacerbation. Initial psychiatric evaluation found patient to report being manicky-panicky and dissociative and reporting suicidal ideation. She reports that she was fine until she was at her day program yesterday and suddenly wanted to put her hand through a window. There is concern for patient risk of harm to self because of this. This is an inadequately controlled established problem. Patient has a long history of multiple hospitalizations. She reports that her psychiatrist and her mother are both advocating for a check of her Tegretol level. Asked the patient about treatment-related preferences. Explained to the patient the differential diagnosis, risks of untreated illness, treatment options, and benefits and risks of treatment. Will not change scheduled medications at this time but will order a trough level of Tegretol in the morning. Symptoms could be exacerbated by steroids she is currently taking although patient denies them??triggering robert or mood symptoms in the past.??Patient is advocating to return to an inpatient stay at [facility] where she was recently. Will also order a rapid COVID-19 test to facilitate placement as she is still testing positive by PCR. Continues to endorse suicidal ideation. Denies homicidal ideation or desire for nonsuicidal self-injury. Dispositions as per crisis services. 10/03/2022 - Tegretol level is 6.4. Says she slept better last night than she has in a while and is feeling better. Previously endorsed suicide plan with low lethality (banging head against a wall). Patient is now denying suicidal ideation. Currently feeling more hopeful and recognizes that recent increase in manic symptoms was likely a result of steroid course. She is willing to return to her shelter at this time. ?? Safety/Risk Assessment?? Risk Factors: Past self-injurious behavior. Bipolar 1 disorder, Borderline personality disorder. Brother by suicide. Conflict with mother/guardian Protective Factors:??No history of suicide attempts or aborted suicide attempts. [facility] Has outpatient support from [employer]. Assessment??Today:?? On the patient's presentation today, collateral information,??knowledge of??this patient's history,??risk and protective??factors it is my assessment that??she is NOT an imminent/acute risk of harm to self or others today and hence does not meet criteria??for emergency restraint??and/or??hospitalization under M.G.L.??Ch 123, Section 12 AT THIS TIME. However, this patient is at a chronic moderate-high??risk??of self-harm given??her significant risk factors and requires??appropriate, consistent mental health care to help mitigate future risks of self-ham and/or harm to other s.??Psychiatric research repeatedly??demonstrates that??safety/risk assessments??and/or rating scales??have low??predictive values and low??specificity. The aim of this??assessment is to??attempt to mitigate and identify??any imminent risk of??harm to the patient and/or others by utilizing??pertinent information available??to at the time??of this assessment.? Diagnoses Bipolar 1 disorder Borderline personality disorder, by history Suicidal ideation IRINA on CPAP History of nonsuicidal self-injury COVID-19 Drug-induced mood disorder ?? Recommendations -Disposition as per??[facility], albeit currently a bed search for inpatient psychiatric hospitalization. -Continue home medications, as verified with [facility]: ? ---Tegretol XR 600 mg PO daily in AM, 200 mg PO daily at 1400, 400 mg PO daily at 2000 ? ---Prazosin 4 mg PO daily at bedtime, hold for SBP<90 and/or DBP<60 ? ---Gabapentin 400 mg PO three times daily ? ---Seroquel 100 mg PO daily at bedtime ? ---trazodone 200 mg PO daily at bedtime -Continue Vistaril 100 mg PO q6h PRN anxiety -Start Haldol 5 mg q6h PRN agitation. Patient is allergic to benzodiazepines and Benadryl. -Would note that these medications are only being utilized in the ER while the patient awaits placement. Long-term need for these medications will need to be assessed by the patient's future treatingpsychiatrist. -The preference is for PO medications, but if the patient refuses the oral medications and there issufficient acute safety concern, can judiciously utilize IM equivalents for severe agitation.?? -Seclusion or restraint may only be used as interventions of last resort in the management of severe agitation in patient. If they are used, seclusion and restraint episodes should be as short as possible, dignified, and as safe as possible for all involved. Patient preference should always be considered when feasible. -Follow-up labs - Trough Tegretol level in the morning.??Per mother (legal guardian), patient's symptoms are closely tied to her Tegretol level. Rapid COVID-19 test - Patient reports that she had COVID-19 two weeks ago and a negative rapid test will help facilitate placement. -Patient is aware to call 911, the crisis hotline, or to head to the nearest ED if any safety concerns arise. -Patient was advised to keep medications, sharp objects, or any weapons out of reach and safely locked; she lives at a shelter where staff can manage this. -Patient will follow up with her outpatient providers to continue to titrate Tegretol level. ?? Thank you for allowing us to participate in this patient's care. We will continue to follow the patient as needed by the primary team. Please feel free to contact the Psychiatry consult service ([phone] or page [phone]) with any questions or concerns.? Case and plan discussed with attending psychiatrist, Dr. Jaja Callaway. Recommendations??cortexted to Dr. Jasvir Zee. Dr. Mario Alberto Magaña. ? Cayla Rojas BA MSN [facility]- Emergency Psychiatry Services Division of Consultation-Liaison Psychiatry [facility] ? * Jaja Callaway DO: PERFORM Event Display: Progress Note Hospital Authored Date: Supervising Physician: Patient was not seen by this fiction and nonfiction prose writer, but chart reviewed and discussed the case and its management??with??Cayla Rojas,??[facility] as documented. ??I agree with the assessment and plan as documented above based upon her evaluation.? History of vague SI, no prior suicide attempts. Recent mood exacerbation is felt to be 2/2 steroid therapies rather than acute primary depressive illness. Denying any SI/HI/AVH today. No acute nor imminent safety concerns necessitating IPLOC. Patient is amenable to returning to the ED if there should be any changes to psychiatric condition or safety concerns. Planning for diversion back to later this afternoon. No changes made to home psychotropic medication regimen. ?? Jaja Callwaay D.O.?? Passenger Barge Master, Emergency Psychiatry Services Division of Consultation-Liaison Psychiatry Department of Psychiatry [facility]? Note * SPowerscribe , CIS S: TRANSCRIBE Lv Flores MD: VERIFY Event Display: Result: Authored Date: Chest 2 Views Frontal and Lat Hx of Present Illness: reporting SI; Reason: Other:; Shortness of Breath, Fever; Clinical Question(s): Pneumonia COMPARISON: None. FINDINGS: LINES AND TUBES: None. LUNGS AND PLEURA: Low lung volumes with mild basilar atelectasis. Lungs are otherwise clear with no consolidation. No pleural effusion. No pneumothorax. HEART, MEDIASTINUM AND HENRRY: Heart is normal in size. Normal mediastinal and hilar contour. BONES AND SOFT TISSUES: No acute abnormality. IMPRESSION: No radiographic evidence of an acute cardiopulmonary process. WSN: [id number] Ordering Physician: Kari Mayer Dictated By: Lv Flores MD Dictated Date/Time: 10/01/22 6:02 pm Reviewed By: Lv Flores MD Signed By: Lv Flores MD Signed Date/Time: 10/01/22 6:02 pm Transcribed By: KENDY Transcribed Date/Time: 10/01/22 6:01 pm Patient Care team information Care Team Personnel Name: Kermit Mixon RN Position: [facility] RN Member Role: Primary Care Nurse Name: Bibiana Kendall RN Position: [facility] RN Member Role: Primary Care Nurse Name: Melissa Guevara Position: [facility] Associate Professional Member Role: PCP Address: Address: [address] [place] [id number] Name: *[facility], ED Attending Position: [facility] ED Attendings Patient Name: Christopher Morris MD Position: [facility] ED Medicine MD Member Role: Admitting Physician Address: Address: [address] [place] [address] Palliative [place] [address]- [place] Name: Maida Vargas Position: [facility] ED TA [facility] Member Role: Catalyst Operator Name: Jennifer King RN Position: [facility] ED RN W/OE and Tasks Member Role: Patient Care Provider Care Team Related Persons Name: DAVE MORA Address: [address] [address]
--- OUTSIDE RECORDS SUMMARY | 2022-12-19 18:39 | XMS_ITS | Continuity of Care Document ---
Author Name Unknown Organization [facility] Address [address] [place] [id number]- Care Team Providers Care Gutter Hanger Name Role Phone Lynn Abad MD Primary Care Physician Encounter [facility] R [id number] Date(s): 08/19/20 - 08/26/20 [facility] [address] [place] [id number] Attending Physician: Saloni Pfeiffer Referring Physician: Nellie Morales NP Allergies, Adverse Reactions, Alerts Substance Reaction Severity Status naproxen Active benzodiazepines Active Bactrim Active [place] Active Tomatoes Active Lactose Active Immunizations Given and Recorded Vaccine Date Status Refusal Reason pneumococcal 23-valent vaccine 12/19/18 Given Medications carBAMazepine 100 mg oral tablet, extended release 7 tablets, By Mouth, 2 times a day, Refills 0, Maintenance, 12/18/18 12:00:20 EDT Start Date: 12/18/18 Status: Ordered Cetirizine = 10 mg, By Mouth, Daily, 0 Refills, Maintenance, 12/18/18 11:41:24 EDT Start Date: 12/18/18 Status: Ordered cloNIDine 0.1 mg oral tablet 0.3 mg, By Mouth, Daily at bedtime, Refills 0, Maintenance, 12/22/18 16:40:24 EDT Start Date: 12/22/18 Status: Ordered cloNIDine 0.1 mg oral tablet 0.1 mg, 1, tablet, By Mouth, 3 times a day, Refills 0, Maintenance, 12/18/18 11:57:53 EDT Start Date: 12/18/18 Status: Ordered Culturelle Capsule 1 capsule, By Mouth, Daily, 0 Refills, Maintenance, 12/18/18 11:51:31 EDT Start Date: 12/18/18 Status: Ordered D3 1000 oral tablet 1 tablet = 1,000 International_Units, By Mouth, Daily, 0 Refills, Maintenance, 12/18/18 11:45:21 EDT Start Date: 12/18/18 Status: Ordered Ferrous Sulfate ER 375 mg, By Mouth, Daily in AM, Refills 0, Maintenance, 12/18/18 11:39:59 EDT Start Date: 12/18/18 Status: Ordered gabapentin 300 mg oral capsule 300 mg, By Mouth, Every 4 hours, PRN, # 30 tablet, Refills 0, Tot. Refills 0, Maintenance, Anxiety Agitation, 12/22/18 16:41:43 EDT, Route to Pharmacy Electronically, [id number], [place] [address] Start Date: 12/22/18 Status: Ordered Ibuprofen 400 mg, By Mouth, 2 times a day, PRN, take with food, Refills 0, Maintenance, Pain , Moderate, 12/18/18 11:48:20 EDT Start Date: 12/18/18 Status: Ordered lactase 3000 u oral tablet = 6,000 units, By Mouth, 3 times a day, 0 Refills, Maintenance, 12/18/18 11:42:28 EDT Start Date: 12/18/18 Status: Ordered Melatonin = 5 mg, By Mouth, Daily at bedtime, 0 Refills, Maintenance, 12/18/18 11:55:22 EDT Start Date: 12/18/18 Status: Ordered Multi-Day Plus Minerals 1 tablet, By Mouth, Daily, 0 Refills, Maintenance, 12/18/18 11:54:16 EDT Start Date: 12/18/18 Status: Ordered Omeprazole = 20 mg, By Mouth, 2 times a day, 0 Refills, Maintenance, 12/18/18 11:53:11 EDT Start Date: 12/18/18 Status: Ordered traZODone 100 mg oral tablet 100 mg, 1, tablet, By Mouth, Daily at bedtime, Refills 0, Maintenance, 12/18/18 11:58:58 EDT Start Date: 12/18/18 Status: Ordered
--- OUTSIDE RECORDS SUMMARY | 2022-12-19 18:40 | XMS_ITS | Continuity of Care Document ---
Author Name Unknown Organization [facility] Address [address] [place] [address]- Care Team Providers Care Dolly Operator Name Role Phone Andrew VERMA, Nellie Primary Care Physician Encounter [facility] Date(s): 12/07/21 - 12/20/21 [facility] Inpatient Psychiatry [address] [place] [address]- Encounter Diagnosis Acute depression(Final) - 12/07/21 Discharge Disposition: A-D/C Home Attending Physician: Robin Talavera MD Admitting Physician: Robin Talavera MD Referring Physician: Not on Staff, Referring MD Allergies, Adverse Reactions, Alerts Substance Reaction Severity Status naproxen unknown Active sulfa drugs Active benzodiazepines unknown Active Valium Active Bactrim unknown Active Immunizations Given and Recorded Vaccine Date Status Refusal Reason pneumococcal 23-valent vaccine 12/19/18 Given Medications Advair Diskus 100 mcg-50 mcg inhalation powder Inhalation, 2 times a day, Refills 0, Maintenance, 03/29/21 15:01:00 EDT Start Date: 03/29/21 Status: Ordered albuterol 90 mcg/inh inhalation powder 1 puffs, Inhalation, Every 4 hours, PRN Wheezing/Shortness of Breath, for 10 days, # 1 each, 1 Refills, Acute 12/25/21 11:40:00 EDT, 12/05/21 11:40:00 EDT, Powder, [facility]-[id number],Partial fill upon patient request if the prescripti... Start Date: 12/05/21 Stop Date: 12/25/21 Status: Ordered albuterol-ipratropium 3 mg-0.5 mg/3 ml inhalation solution 3 mL, Neb, 2 times a day, # 360 each, 0 Refills, Maintenance, 12/08/21 9:06:00 EDT, Solution, Partial fill upon patient request if the prescription is for a schedule II opioid drug. Start Date: 12/08/21 Status: Ordered ammonium lactate 10% topical cream Topically, Daily, 0 Refills, Maintenance, 03/29/21 15:03:00 EDT, Partial fill upon patient request if the prescription is for a schedule II opioid drug. Start Date: 03/29/21 Status: Ordered Keith-Gest 500 mg oral tablet, chewable 2 tablet = 1,000 mg, By Mouth, Every 8 hours, PRN Dyspepsia, 0 Refills, Maintenance, 03/29/21 15:04:00 EDT, Partial fill upon patient request if the prescription is for a schedule II opioid drug. Start Date: 03/29/21 Status: Ordered carBAMazepine 300 mg oral capsule, extended release = 600 mg, By Mouth, Daily at bedtime, 0 Refills, Maintenance, 12/19/21 17:48:00 EDT, ER Capsule, Partial fill upon patient request if the prescription is for a schedule II opioid drug. Start Date: 12/19/21 Status: Ordered carBAMazepine 300 mg oral capsule, extended release = 600 mg, By Mouth, Daily in AM, 0 Refills, Maintenance, 12/19/21 17:48:00 EDT, ER Capsule, Partialfill upon patient request if the prescription is for a schedule II opioid drug. Start Date: 12/19/21 Status: Ordered Cetirizine = 10 mg, By Mouth, Daily, 0 Refills, Maintenance, 03/29/21 15:02:00 EDT, Partial fill upon patient request if the prescription is for a schedule II opioid drug. Start Date: 03/29/21 Status: Ordered clonazePAM 0.5 mg oral tablet 1 tablet = 0.5 mg, By Mouth, 2 times a day, 0 Refills, Maintenance, 03/29/21 15:05:00 EDT, Partial fill upon patient request if the prescription is for a schedule II opioid drug. Start Date: 03/29/21 Status: Ordered Culturelle Capsule By Mouth, Daily, 0 Refills, Maintenance, 03/29/21 15:06:00 EDT, Partial fill upon patient request if the prescription is for a schedule II opioid drug. Start Date: 03/29/21 Status: Ordered D3 1000 oral tablet 1 tablet = 1,000 International_Units, By Mouth, Daily, 0 Refills, Maintenance, 12/18/18 11:45:21 EDT Start Date: 12/18/18 Status: Ordered diclofenac 1% topical gel 1 application, Topically, 4 times a day, # 100 Gm, 0 Refills, Maintenance, 12/08/21 9:04:00 EDT, Gel, Partial fill upon patient request if the prescription is for a schedule II opioid drug. Start Date: 12/08/21 Status: Ordered dicyclomine 10 mg oral capsule 1 capsule = 10 mg, By Mouth, 4 times a day, PRN Other, 0 Refills, Maintenance, 03/29/21 15:06:00 EDT, Partial fill upon patient request if the prescription is for a schedule II opioid drug. Start Date: 03/29/21 Status: Ordered Ecotrin 325 mg oral delayed [...] Mouth, Daily at bedtime, Refills 0, Maintenance, 03/29/21 14:56:00 EDT, Partial fill upon patient request if the prescription is for a schedule II opioid drug. Start Date: 03/29/21 Status: Ordered gabapentin 300 mg oral capsule 300 mg, Capsule, By Mouth, 12/20/21 9:00:00 EDT Start Date: 12/20/21 Stop Date: 12/20/21 Status: Completed gabapentin 300 mg oral capsule 300 mg, 1, capsule, By Mouth, 2 times a day, # 60 capsule, Refills 0, Tot. Refills 0, Maintenance, 12/19/21 17:48:00 EDT, Route to Pharmacy Electronically, [facility]-[id number], Partialfill upon patient request if the prescription is fo... Start Date: 12/19/21 Status: Ordered gabapentin 400 mg oral capsule 400 mg, 1, capsule, By Mouth, Daily at bedtime, # 30 capsule, Refills 0, Tot. Refills 0, Maintenance, 12/19/21 17:48:00 EDT, Route to Pharmacy Electronically, [facility]-[id number], Partial fill upon patient request if the prescription is... Start Date: 12/19/21 Status: Ordered guaiFENesin 100 mg/5 mL oral liquid 5 mL = 100 mg, By Mouth, Every 4 hours, PRN for cough, # 300 mL, 0 Refills, Maintenance, 12/08/21 9:01:00 EDT, Liquid, Partial fill upon patient request if the prescription is for a schedule II opioid drug. Start Date: 12/08/21 Status: Ordered hydrOXYzine pamoate 25 mg oral capsule 3 capsule = 75 mg, By Mouth, Every 6 hours, PRN Anxiety, # 360 capsule, 0 Refills, Maintenance, 12/19/21 17:49:00 EDT, Capsule, [facility]-[id number], Partial fill upon patient request if the prescription is for a schedule II opioid drug.... Start Date: 12/19/21 Status: Ordered ibuprofen 600 mg oral tablet 600 mg, Tablet, By Mouth, 3 times a day, PRN for Pain , Mild, Routine, 12/07/21 22:06:00 EDT Start Date: 12/07/21 Stop Date: 12/21/21 Status: Discontinued Incruse Ellipta 62.5 mcg/inh inhalation powder Inhalation, Daily, 0 Refills, Maintenance, 03/29/21 15:08:00 EDT, Partial fill upon patient requestif the prescription is for a schedule II opioid drug. Start Date: 03/29/21 Status: Ordered lactase 3000 u oral tablet = 6,000 units, By Mouth, 3 times a day, PRN Other, 0 Refills, Maintenance, 12/18/18 11:42:28 EDT Start Date: 12/18/18 Status: Ordered Lotrisone 0.05%-1% cream Topically, Daily at bedtime, PRN Other, 0 Refills, Maintenance, 03/29/21 15:15:00 EDT, Partial fillupon patient request if the prescription is for a schedule II opioid drug. Start Date: 03/29/21 Status: Ordered Minipress 5 mg, Capsule, By Mouth, 12/19/21 21:00:00 EDT Start Date: 12/19/21 Stop Date: 12/19/21 Status: Completed Minipress 1 mg oral capsule 4 mg, 4, capsule, By Mouth, Daily at bedtime, Refills 0, Maintenance, 03/29/21 15:10:00 EDT, Partial fill upon patient request if the prescription is for a schedule II opioid drug. Start Date: 03/29/21 Status: Ordered Multivitamin 1 tablet, Daily, 0 Refills, Maintenance, 12/08/21 9:07:00 EDT, Partial fill upon patient request ifthe prescription is for a schedule II opioid drug. Start Date: 12/08/21 Status: Ordered piroxicam 10 mg oral capsule 1 capsule = 10 mg, By Mouth, 2 times a day, 0 Refills, Maintenance, 03/29/21 15:11:00 EDT, Partial fill upon patient request if the prescription is for a schedule II opioid drug. Start Date: 03/29/21 Status: Ordered Protonix 40 mg oral delayed release tablet 1 tablet = 40 mg, By Mouth, 2 times a day, 0 Refills, Maintenance, 03/29/21 15:15:00 EDT Start Date: 03/29/21 Status: Ordered QUEtiapine 50 mg oral tablet 1 tablet = 50 mg, By Mouth, Daily at bedtime, 0 Refills, Maintenance, 12/08/21 9:03:00 EDT, Partialfill upon patient request if the prescription is for a schedule II opioid drug. Start Date: 12/08/21 Status: Ordered Refresh - solution 1 drops, Eyes, Both, 4 times a day, PRN for dry eyes, # 15 mL, 0 Refills, Maintenance, 12/08/21 9:07:00 EDT, Solution, Partial fill upon patient request if the prescription is for a schedule II opioid drug. Start Date: 12/08/21 Status: Ordered traZODone 100 mg oral tablet 200 mg, 2, tablet, By Mouth, Daily at bedtime, Refills 0, Maintenance, 12/18/18 11:58:58 EDT Start Date: 12/18/18 Status: Ordered Problem List Condition Effective Dates Status Health Status Inform ant Severe obesity(Confirmed) Active Vital Signs Most recent to oldest [Reference Range]: 1 2 3 Height 157.5 cm (12/20/21 9:21 AM) 157.5 cm (12/19/21 9:50 PM) 157.5 cm (12/19/21 10:04 AM) Weight 107.7 kg (12/14/21 2:22 PM) 104.2 kg (12/07/21 10:50 PM) 107 kg (12/07/21 6:52 PM) Oxygen Saturation [94-100 %] 98 % (12/20/21 9:21 AM) 98 % (12/19/21 9:50 PM) 95 % (12/19/21 10:04 AM) Pulse Rate [55-90 bpm] 90 bpm (12/20/21 9:21 AM) 78 bpm (12/19/21 9:50 PM) 73 bpm (12/19/21 10:04 AM) Body Mass Index [18.5-24.99] 42.01 *>HHI* (12/07/21 10:50 PM) Blood Pressure [90-138/55-84 mm Hg] 124/72mm Hg (12/20/21 9:21 AM) 112/71mm Hg (12/19/21 9:50 PM) 112/71mm Hg (12/19/21 8:18 PM) Respiratory Rate [16-30 br/min] 16 br/min (12/20/21 9:21 AM) 16 br/min (12/20/21 9:20 AM) 16 br/min (12/20/21 9:20 AM) Temperature [96.8-100.4 DegF] 98.3 DegF (12/20/21 9:21 AM) 96.6 DegF *L* (12/19/21 9:50 PM) 98.1 DegF (12/19/21 10:04 AM) Mode of Delivery (Oxygen) Room air (12/20/21 9:21 AM) Room air (12/19/21 10:04 AM) Room air (12/18/21 7:56 PM) Blood pressure sites Arm, left (12/20/21 9:21 AM) Arm, left (12/19/21 9:50 PM) Arm, left (12/19/21 10:04 AM) Temperature Route Temporal (12/20/21 9:21 AM) Temporal (12/19/21 9:50 PM) Temporal (12/19/21 10:04 AM) Dry Weight 104.2 kg (12/07/21 10:50 PM) 107 kg (12/07/21 6:52 PM) Weight Obtained Via Standing scale (12/14/21 2:22 PM) Standing scale (12/07/21 10:50 PM) Dry Weight Obtained Via Standing scale (12/07/21 10:50 PM)
--- OUTSIDE RECORDS SUMMARY | 2022-12-19 18:40 | XMS_ITS | Continuity of Care Document ---
Author Name Unknown Organization [facility] ter Address [address] [place] [id number]- Care Team Providers Care Conveyor Console Operator Name Role Phone Melissa Guevara Primary Care Physician [phone] [place] [facility] Date(s): 07/25/22 - 07/27/[address] [address]- Discharge Disposition: Transfer to [facility] Facility Attending Physician: Luke Allison MD Admitting Physician: Luke Allison MD Referring Physician: Not on Staff, Referring MD Allergies, Adverse Reactions, Alerts Substance Reaction Severity Status naproxen unknown Active sulfa drugs Active OxyCONTIN Unknown Unknown Active benzodiazepines unknown Active Valium Active Bactrim unknown Active Benadryl Unknown Unknown Active Immunizations Given and Recorded [...] 1 Refills, Maintenance, 03/13/22 21:18:00 EDT, Capsule, [facility]-[id number], Partial fill upon patient requestif the prescription [...] 03/13/22 21:19:00 EDT, Route to Pharmacy Electronically, [facility]-[id number], Partialfill upon patient request if the prescription is fo... Start Date: 03/13/22 Status: Ordered gabapentin 300 mg oral capsule 300 mg, 1, capsule, By Mouth, 3 times a day, # 90 capsule, Refills 1, Tot. Refills 1, Maintenance, 03/13/22 21:19:00 EDT, Route to Pharmacy Electronically, [facility]-[id number], Partialfill upon patient request if the prescription is fo... Start Date: 03/13/22 Status: Ordered gabapentin 300 mg oral capsule 300 mg, Capsule, By Mouth, 07/27/22 9:00:00 EST Start Date: 07/27/22 Stop Date: 07/27/22 Status: Completed guaiFENesin 100 mg/5 mL oral [...] 1 Refills, Maintenance, 03/13/22 21:19:00 EDT, Capsule, [facility]-[id number], Partial fill upon patient request if the prescription is for a schedule II opioid dr... Start Date: 03/13/22 Status: Ordered Incruse Ellipta [...] Refills, Maintenance, 03/13/22 21:20:00 EDT, ER Tablet, [facility]-[id number], Partial fill upon patient request if the prescription is for a schedule II opioid drug., 157.48, cm, 03/13... Start Date: 03/13/22 Status: Ordered Minipress 1 mg oral capsule 2 mg, 2, capsule, By Mouth, Daily at bedtime, # 60 capsule, Refills 1, Tot. Refills 1, Maintenance,03/13/22 21:20:00 EDT, [facility] fill upon patient request if the [...] Status: Ordered prazosin 1 mg oral capsule 2 mg, Capsule, By Mouth, 07/26/22 21:00:00 EST Start Date: 07/26/22 Stop Date: 07/26/22 Status: Completed Protonix 40 mg oral delayed [...] Maintenance,03/13/22 21:20:00 EDT, [id number] Partial fill upon patient request if the prescription is f... Start Date: 03/13/22 Status: Ordered TEGretol XR 400 mg oral tablet, extended release 400 mg, 1, tablet, By Mouth, Every 12 hours, # 60 tablet, Refills 1, Tot. Refills 1, Maintenance, 03/13/22 21:18:00 EDT, Route to Pharmacy Electronically, [facility]231, Partial fill upon patient request if the prescription is for... Start Date: 03/13/22 Status: Ordered [place] Active Muscle Rub 1 application, Topically, 4 times a day, PRN as needed, Maintenance, 03/06/22 12:42:00 EDT, ; Start Date: 03/06/22 Status: Ordered traZODone 100 mg oral tablet 200 mg, 2, tablet, By Mouth, Daily at bedtime, # 60 tablet, Refills 1, Tot. Refills 1, Maintenance,03/13/22 21:21:00 EDT, Route to Pharmacy Electronically, [facility]45169, Partial fill upon patient request if the prescription is f... Start Date: 03/13/22 Status: Ordered Problem List Condition Confirmation Course Effective Dates Status Health St atus Informant Severe obesity Confirmed Active Vital Signs Most recent to oldest [Reference Range]: 1 2 3 Oxygen Saturation [94-100 %] 100 % (07/27/22 6:33 AM) 100 % (07/26/22 8:54 PM) 98 % (07/26/22 4:37 AM) Pulse Rate [55-90 bpm] 61 bpm (07/27/22 6:33 AM) 90 bpm (07/26/22 8:54 PM) 92 bpm *H* (07/26/22 4:37 AM) Blood Pressure [90-138/55-84 mm Hg] 110/72mm Hg (07/27/22 6:33 AM) 127/74mm Hg (07/26/22 8:54 PM) 126/76mm Hg (07/26/22 8:54 PM) Respiratory Rate [16-30 br/min] 16 br/min (07/27/22 11:34 AM) 16 br/min (07/27/22 10:34 AM) 16 br/min (07/27/22 6:33 AM) Temperature [96.8-100.4 DegF] 98.0 DegF (07/27/22 6:33 AM) 98.3 DegF (07/26/22 8:54 PM) 97.9 DegF (07/26/22 4:37 AM) Mode of Delivery (Oxygen) Room air (07/27/22 6:33 AM) Room air (07/26/22 8:54 PM) Blood pressure sites Arm, right (07/27/22 6:33 AM) Arm, right (07/26/22 8:54 PM) Arm, right (07/26/22 4:37 AM) Temperature Route Oral (07/27/22 6:33 AM) Oral (07/26/22 8:54 PM) Oral (07/26/22 4:37 AM) Patient Care team information Care Team Personnel Name: Kermit Mixon Position: [facility] RN Member Role: Primary Care Nurse Name: Bibiana Kendall Position: [facility] RN Member Role: Primary Care Nurse Name: Melissa Guevara Position: [facility] Associate Professional Member Role: PCP Address: Address: [address] [place] [id number]- Name: William Almazan RN Position: [facility] RN Member Role: Primary Care Nurse [facility] Attending Position: [facility] ED Attendings Patient Name: Lynn Knight RN Position: [facility] ED RN W/OE and Tasks Member Role: Patient Care Provider Name: Luke Allison MD Position: [facility] ED Medicine MD Member Role: Admitting Physician Address: Address: [address] [place] [address] [place] [address]- Care Team Related Persons Name: DAVE MORA Address: home [address] [address]
--- OUTSIDE RECORDS SUMMARY | 2022-12-19 18:40 | XMS_ITS | Continuity of Care Document ---
Author Name Unknown Organization [facility] Address [address] [place] [address]- Care Team Providers Care Nipple Threader Name Role Phone Lynn Abad MD Primary Care Physician [phone] [id number] Date(s): 08/19/20 - 11/17/20 [facility] [address] [place] [id number] Attending Physician: Jose Gonsalez MD Allergies, Adverse Reactions, Alerts Substance Reaction Severity Status naproxen Active benzodiazepines Active Bactrim Active [place] Active Tomatoes Active Lactose Active Immunizations Given [...] 12/22/18 16:41:43 EDT, [id number] [place] [address] Start Date: 12/22/18 Status: Ordered Ibuprofen 400 [...]
--- OUTSIDE RECORDS SUMMARY | 2022-12-19 18:40 | XMS_ITS | Continuity of Care Document ---
Author Name Unknown Organization [facility] ter Address [address] [place] [address]- Care Team Providers Care Document Processor Name Role Phone Lynn Abad MD Primary Care Physician [phone] Encounter [facility] [place] Date(s): 04/07/21 - 04/08/[address] [address]- Encounter Diagnosis Postoperative pain(Final) - 04/08/21 Visit for wound check(Final) - 04/08/21 Discharge Disposition: A-D/C Home Attending Physician: Vasile Mejia MD Admitting Physician: Vasile Mejia MD Referring Physician: Not on Staff, Referring MD Allergies, Adverse Reactions, Alerts Substance Reaction Severity Status naproxen unknown Active benzodiazepines unknown Active Bactrim unknown Active [place] because of acid reflux Act maicol Tomatoes because of acid reflux Act maicol Lactose unknown Active Immunizations Given and Recorded Vaccine Date Status Refusal Reason pneumococcal 23-valent vaccine 12/19/18 Given Medications Advair Diskus 100 mcg-50 mcg inhalation powder Inhalation, 2 times a day, Refills 0, Maintenance, 03/29/21 15:01:00 EDT Start Date: 03/29/21 Status: Ordered albuterol 90 mcg/inh inhalation powder 1 puffs, Inhalation, Every 4 hours, PRN as needed, # 1 each, 0 Refills, Maintenance, 03/29/21 15:01:00 EDT, Powder, Partial fill upon patient request if the prescription is for a schedule II opioid drug. Start Date: 03/29/21 Status: Ordered ammonium lactate 10% topical cream [...] opioid drug. Start Date: 03/29/21 Status: Ordered Cetirizine = 10 mg, By [...] opioid drug. Start Date: 03/29/21 Status: Ordered cloNIDine 0.1 mg oral tablet 0.3 mg, By Mouth, Daily at bedtime, Refills 0, Maintenance, 12/22/18 16:40:24 EDT Start Date: 12/22/18 Status: Ordered cloNIDine 0.1 mg oral tablet 0.1 mg, 1, tablet, By Mouth, 3 times a day, Refills 0, Maintenance, 12/18/18 11:57:53 EDT Start Date: 12/18/18 Status: Ordered Culturelle Capsule By Mouth, Daily, 0 Refills, Maintenance, 03/29/21 15:06:00 EDT, Partial fill upon patient request if the prescription is for a schedule II opioid drug. Start Date: 03/29/21 Status: Ordered D3 1000 oral tablet 1 tablet = 1,000 International_Units, By Mouth, Daily, 0 Refills, Maintenance, 12/18/18 11:45:21 EDT Start Date: 12/18/18 Status: Ordered dicyclomine 10 mg oral capsule 1 capsule = 10 mg, By Mouth, 4 times a day, PRN Other, 0 Refills, Maintenance, 03/29/21 15:06:00 EDT, Partial fill upon patient request if the prescription is for a schedule II opioid drug. Start Date: 03/29/21 Status: Ordered Dilaudid Inj 1 mg, Injection, IV Push Slowly, Once, STAT, 04/08/21 0:34:00 EDT, Stop date 04/08/21 0:34:00 EDT Start Date: 04/08/21 Stop Date: 04/08/21 Status: Completed Ecotrin 325 mg oral delayed release tablet [...] capsule, By Mouth, 2 times a day, Refills 0, Maintenance, 03/29/21 15:06:00 EDT, Partialfill upon patient request if the prescription is for a schedule II opioid drug. Start Date: 03/29/21 Status: Ordered gabapentin 400 mg oral capsule 400 mg, 1, capsule, By Mouth, Daily at bedtime, Refills 0, Maintenance, 03/29/21 15:07:00 EDT, Partial fill upon patient request if the prescription is for a schedule II opioid drug. Start Date: 03/29/21 Status: Ordered Incruse Ellipta 62.5 mcg/inh inhalation powder Inhalation, [...] drug. Start Date: 03/29/21 Status: Ordered Minipress 1 mg oral capsule 3 mg, 3, capsule, By Mouth, Daily at bedtime, Refills 0, Maintenance, 03/29/21 15:10:00 EDT, Partial fill upon patient request if the prescription is for a schedule II opioid drug. Start Date: 03/29/21 Status: Ordered oxyCODONE 5 mg oral tablet See Instructions, PRN, 1-2 tablets By Mouth Every 4-6 hours, # 30 tablet, Refills 0, Tot. Refills 0, Maintenance, for pain, 04/04/21 7:13:00 EDT, Instructions Replace Required Details, Do Not Route, Partial fill upon patient request if the prescriptio... Start Date: 04/04/21 Status: Ordered piroxicam 10 mg oral capsule [...] 15:15:00 EDT Start Date: 03/29/21 Status: Ordered TEGretol XR 200 mg oral tablet, extended release 1 tablet = 200 mg, By Mouth, 2 times a day, 0 Refills, Maintenance, 03/29/21 15:16:00 EDT, Partial fill upon patient request if the prescription is for a schedule II opioid drug. Start Date: 03/29/21 Status: Ordered TEGretol XR 400 mg oral tablet, extended release 400 mg, 1, tablet, By Mouth, 2 times a day, takes with 200mg dose for total of 600mg bid, Refills 0, Maintenance, 03/29/21 15:17:00 EDT, Partial fill upon patient request if the prescription is for aschedule II opioid drug. Start Date: 03/29/21 Status: Ordered traZODone 100 mg oral tablet 200 mg, 2, tablet, By Mouth, Daily at bedtime, Refills 0, Maintenance, 12/18/18 11:58:58 EDT Start Date: 12/18/18 Status: Ordered Tylenol Extra Strength 500 mg oral tablet 2 tablet = 1,000 mg, By Mouth, 3 times a day, PRN as needed for pain, # 90 tablet, 0 Refills, Maintenance, 04/04/21 7:13:00 EDT, Tablet, Partial fill upon patient request if the prescription is for aschedule II opioid drug. Start Date: 04/04/21 Status: Ordered Vistaril pamoate 50 mg oral capsule 2 capsule = 100 mg, By Mouth, 3 times a day, PRN as needed for anxiety, 0 Refills, Maintenance, 03/29/21 15:12:00 EDT, Partial fill upon patient request if the prescription is for a schedule II opioid drug. Start Date: 03/29/21 Status: Ordered Vital Signs Most recent to oldest [Reference Range]: 1 2 3 Oxygen Saturation [94-100 %] 96 % (04/08/21 5:18 AM) 99 % (04/07/21 11:53 PM) Pulse Rate [55-90 bpm] 76 bpm (04/08/21 5:18 AM) 89 bpm (04/07/21 11:53 PM) Blood Pressure [90-138/55-84 mm Hg] 115/52mm Hg (04/08/21 5:18 AM) 131/82mm Hg (04/07/21 11:53 PM) Respiratory Rate [16-30 br/min] 16 br/min (04/08/21 5:18 AM) 16 br/min (04/08/21 2:13 AM) 18 br/min (04/07/21 11:53 PM) Temperature [96.8-100.4 DegF] 97.9 DegF (04/08/21 5:18 AM) 98.8 DegF (04/07/21 11:53 PM) Mode of Delivery (Oxygen) Room air (04/08/21 5:18 AM) Room air (04/07/21 11:53 PM) Blood pressure sites Arm, left (04/08/21 5:18 AM) Arm, left (04/07/21 11:53 PM) Temperature Route Oral (04/08/21 5:18 AM) Oral (04/07/21 11:53 PM)
--- OUTSIDE RECORDS SUMMARY | 2022-12-19 18:40 | XMS_ITS | Continuity of Care Document ---
Author Name Unknown Organization [facility] Address [address] [facility], [address], [address] [place] [address]- Care Team Providers Care Dye House Worker Name Role Phone Melissa Guevara Primary Care Physician Encounter [facility] Date(s): 04/09/22 - 05/09/22 [facility] [address], [address], [address] [place] [phone]- Allergies, Adverse Reactions, Alerts Substance Reaction Severity [...] 1 Refills, Maintenance, 03/13/22 21:18:00 EDT, Capsule, [facility]-[id number], Partial fill upon patient requestif the prescription [...] 03/13/22 21:19:00 EDT, Route to Pharmacy Electronically, [facility]-[id number], Partialfill upon patient request if the prescription is fo... Start Date: 03/13/22 Status: Ordered gabapentin 300 mg oral capsule 300 mg, 1, capsule, By Mouth, 3 times a day, # 90 capsule, Refills 1, Tot. Refills 1, Maintenance, 03/13/22 21:19:00 EDT, Route to Pharmacy Electronically, [facility]-[id number], Partialfill upon patient request if the prescription is fo... Start Date: 03/13/22 Status: Ordered guaiFENesin 100 mg/5 mL oral [...] 1 Refills, Maintenance, 03/13/22 21:19:00 EDT, Capsule, [facility]-[id number], Partial fill upon patient request if the [...] Refills, Maintenance, 03/13/22 21:20:00 EDT, ER Tablet, [facility]-[id number], Partial fill upon patient request if the prescription is for a schedule II opioid drug., 157.48, cm, 03/13... Start Date: 03/13/22 Status: Ordered Minipress 1 mg oral capsule 2 mg, 2, capsule, By Mouth, Daily at bedtime, # 60 capsule, Refills 1, Tot. Refills 1, Maintenance,03/13/22 21:20:00 EDT, [facility], Partial fill upon patient request if the prescription is f... Start Date: 03/13/22 Status: Ordered Multivitamin 1 tablet, Daily, 0 Refills, Maintenance, 12/08/21 9:07:00 EDT, ; Start Date: 12/08/21 Status: Ordered piroxicam 10 mg oral capsule 1 capsule = 10 mg, By Mouth, 2 times a day, 0 Refills, Maintenance, 03/29/21 15:11:00 EDT, ; Start Date: 03/29/21 Status: Ordered Protonix 40 [...] Maintenance,03/13/22 21:20:00 EDT, [facility], Partial fill upon patient request if the prescription is f... Start Date: 03/13/22 Status: Ordered TEGretol XR 400 mg oral tablet, extended release 400 mg, 1, tablet, By Mouth, Every 12 hours, # 60 tablet, Refills 1, Tot. Refills 1, Maintenance, 03/13/22 21:18:00 EDT, [facility], Partial fill upon patient request if the prescription is for... Start Date: 03/13/22 Status: Ordered [place] Active Muscle Rub 1 application, Topically, 4 times a day, PRN as needed, Maintenance, 03/06/22 12:42:00 EDT, ; Start Date: 03/06/22 Status: Ordered traZODone 100 mg oral tablet 200 mg, 2, tablet, By Mouth, Daily at bedtime, # 60 tablet, Refills 1, Tot. Refills 1, Maintenance,03/13/22 21:21:00 EDT, Route to Pharmacy Electronically, [facility]-[id number], Partial fill upon patient request if the prescription is f... Start Date: 03/13/22 Status: Ordered Problem List Condition Confirmation Course Effective Dates Status Health [facility] Informant Severe obesity Confirmed Active Patient Care team information Personnel Name: Melissa Guevara Address: Address: [address] [place] [id number]
--- OUTSIDE RECORDS SUMMARY | 2022-12-19 18:40 | XMS_ITS | Continuity of Care Document ---
Author Name Unknown Organization [facility] Address [address] [place] [address]- Care Team Providers Care Foot Doctor Name Role Phone Lynn Abad MD Primary Care Physician Encounter [facility] Date(s): 12/05/21 - 12/05/[address] [address]- Encounter Diagnosis Asthma(Final) - 12/05/21 Anxiety(Final) - 12/05/21 Discharge Disposition: A-D/C Home Attending Physician: Jass Burch MD Admitting Physician: Jass Burch MD Referring Physician: Not on Staff, Referring MD Allergies, Adverse Reactions, Alerts Substance Reaction Severity Status naproxen unknown Active [place] because of acid reflux Act maicol Tomatoes because of acid reflux Act maicol Lactose unknown Active benzodiazepines unknown Active Bactrim unknown Active Immunizations Given and [...] 12/25/21 11:40:00 EDT, 12/05/21 11:40:00 EDT, Powder, [facility]-[id number],Partial fill upon patient request if the prescripti... Start Date: 12/05/21 Stop Date: 12/25/21 Status: Ordered albuterol 90 mcg/inh inhalation powder [...] opioid drug. Start Date: 03/29/21 Status: Ordered predniSONE 20 mg oral tablet 2 tablet = 40 mg, By Mouth, Daily, for 2 days, # 4 tablet, 0 Refills, Acute 12/07/21 11:40:00 EDT, 12/05/21 11:40:00 EDT, Tablet, [facility]-[id number], Partial fill upon patient requestif the prescription is for a schedule II opioid angela... Start Date: 12/05/21 Stop Date: 12/07/21 Status: Ordered Protonix 40 mg oral delayed [...] opioid drug. Start Date: 03/29/21 Status: Ordered Problem List Condition Effective Dates Status Health Status Inform ant Severe obesity(Confirmed) Active Vital Signs Most recent to oldest [Reference Range]: 1 2 Height 157 cm (12/05/21 10:33 AM) 157 cm (12/05/21 10:18 AM) Weight 107 kg (12/05/21 10:33 AM) 107 kg (12/05/21 10:18 AM) Oxygen Saturation [94-100 %] 97 % (12/05/21 11:52 AM) 95 % (12/05/21 10:18 AM) Pulse Rate [55-90 bpm] 80 bpm (12/05/21 11:52 AM) 84 bpm (12/05/21 10:18 AM) Body Mass Index [18.5-24.99] 43.41 *>HHI* (12/05/21 10:18 AM) Blood Pressure [90-138/55-84 mm Hg] 98/7 3mm Hg (12/05/21 11:52 AM) 141/90mm Hg *H* (12/05/21 10:18 AM) Respiratory Rate [16-30 br/min] 18 br/mi n (12/05/21 11:52 AM) 20 br/min (12/05/21 10:18 AM) Temperature [96.8-100.4 DegF] 98.0 DegF (12/05/21 10:18 AM) Mode of Delivery (Oxygen) Room air (12/05/21 11:52 AM) Room air (12/05/21 10:18 AM) Blood pressure sites Arm, left (12/05/21 11:52 AM) Arm, right (12/05/21 10:18 AM) Temperature Route Oral (12/05/21 10:18 AM) Dry Weight 107 kg (12/05/21 10:33 AM) 107 kg (12/05/21 10:18 AM) Weight Obtained Via Patient/family state d (12/05/21 10:18 AM) Dry Weight Obtained Via Patient/family s tated (12/05/21 10:18 AM)
--- OUTSIDE RECORDS SUMMARY | 2022-12-19 18:40 | XMS_ITS | Continuity of Care Document ---
Author Name Unknown Organization [facility] ter Address [address] [place] [id number]- Care Team Providers Care Transformation Consultant Name Role Phone Nellie Morales NP Primary Care Physician Encounter [facility] [place] [facility] Date(s): 03/05/22 - 03/07/[address] [address]- Encounter Diagnosis Altered mood associated with robert(Final) - 03/05/22 Discharge Disposition: Transfer to Psych Facility Attending Physician: Mitzi Jacobsen MD Admitting Physician: Mitzi Jacobsen MD Referring Physician: Not on Staff, Referring [...] 15:01:00 EDT Start Date: 03/29/21 Status: Ordered albuterol-ipratropium 3 mg-0.5 mg/3 ml [...] EDT, ; Start Date: 03/29/21 Status: Ordered carBAMazepine 200 mg oral tablet, extended release 1 tablet = 200 mg, By Mouth, 2 times a day, 600 mg ER 2 times daily, Maintenance, 03/06/22 12:29:00EDT, ER Tablet, ; Start Date: 03/06/22 Status: Ordered carBAMazepine 400 mg oral tablet, extended release 400 mg, 1, tablet, By Mouth, 2 times a day, 600 mg ER 2 times daily, Maintenance, 03/06/22 12:29:00EDT, ; Start Date: 03/06/22 Status: Ordered cetirizine 10 mg oral tablet 1 tablet = 10 mg, By Mouth, Daily, Maintenance, 03/06/22 12:28:00 EDT, Tablet, ; Start Date: 03/06/22 Status: Ordered clonazePAM 0.5 mg oral tablet 1 tablet = 0.5 mg, By Mouth, Every 6 hours, PRN NEEDED, LAST fILLED 12/04/21 12 TABS, 0 Refills, Maintenance, 03/29/21 15:05:00 EDT, ; Start Date: 03/29/21 Status: Ordered Culturelle Capsule 1 capsule, By [...] Mouth, 4 times a day, PRN Other, NO FILL HISTORY, 0 Refills, Maintenance, 03/29/21 15:06:00 EDT, ; Start Date: 03/29/21 Status: Ordered Ecotrin 325 mg oral delayed release tablet 1 tablet = 325 mg, By Mouth, Daily, # 30 tablet, 0 Refills, Maintenance, 04/04/21 7:13:00 EDT, EC Tablet, Partial fill upon patient request if the prescription is for a schedule II opioid drug. Start Date: 04/04/21 Status: Ordered famotidine 40 mg oral tablet 1 tablet = 40 mg, By Mouth, Daily at bedtime, Maintenance, 03/06/22 12:37:00 EDT, Tablet, ; Start Date: 03/06/22 Status: Ordered gabapentin 300 mg oral capsule 300 mg, 1, capsule, By Mouth, 2 times a day, # 60 capsule, Refills 0, Tot. Refills 0, Maintenance, 12/19/21 17:48:00 EDT, Route to Pharmacy Electronically, [facility], Partialfill upon patient request if the prescription is fo... Start Date: 12/19/21 Status: Ordered guaiFENesin 100 mg/5 mL oral liquid 5 mL = 100 mg, By Mouth, Every 4 hours, PRN for cough, 0 Refills, Maintenance, 12/08/21 9:01:00 EDT, Liquid, ; Start Date: 12/08/21 Status: Ordered hydrOXYzine pamoate 50 mg oral capsule 2 capsule = 100 mg, By Mouth, 3 times a day, PRN as needed, Maintenance, 03/06/22 12:27:00 EDT, ; Start Date: 03/06/22 Status: Ordered Incruse Ellipta 62.5 mcg/inh inhalation [...] tablet = 1,000 mg, By Mouth, Daily, Maintenance, 03/06/22 12:42:00 EDT, ; Start Date: 03/06/22 Status: Ordered Multivitamin 1 tablet, Daily, 0 Refills, Maintenance, 12/08/21 9:07:00 EDT, ; Start Date: 12/08/21 Status: Ordered piroxicam 10 mg oral capsule 1 capsule = 10 mg, By Mouth, 2 times a day, 0 Refills, Maintenance, 03/29/21 15:11:00 EDT, ; Start Date: 03/29/21 Status: Ordered prazosin 2 mg oral capsule 2 capsule = 4 mg, By Mouth, Daily at bedtime, Maintenance, 03/06/22 12:38:00 EDT, ; Start Date: 03/06/22 Status: Ordered Protonix 40 mg oral delayed release tablet 1 tablet = 40 mg, By Mouth, 2 times a day, 0 Refills, Maintenance, 03/29/21 15:15:00 EDT Start Date: 03/29/21 Status: Ordered QUEtiapine 100 mg oral tablet 100 mg, 1, tablet, By Mouth, Daily at bedtime, Maintenance, 03/06/22 12:36:00 EDT, ; Start Date: 03/06/22 Status: Ordered Refresh - solution 1 drops, Eyes, Both, 4 times a day, PRN for dry eyes, 0 Refills, Maintenance, 12/08/21 9:07:00 EDT,Solution, ; Start Date: 12/08/21 Status: Ordered [place] Active Muscle Rub 1 application, Topically, 4 [...] 1 2 3 Oxygen Saturation [94-100 %] 95 % (03/07/22 3:19 PM) 96 % (03/07/22 1:56 PM) 95 % (03/07/22 8:40 AM) Pulse Rate [55-90 bpm] 87 bpm (03/07/22 3:19 PM) 71 bpm (03/07/22 1:56 PM) 76 bpm (03/07/22 8:40 AM) Blood Pressure [90-138/55-84 mm Hg] 157/93mm Hg *H* (03/07/22 3:19 PM) 101/52mm Hg (03/07/22 1:56 PM) 137/78mm Hg (03/07/22 8:40 AM) Respiratory Rate [16-30 br/min] 20 br/min (03/07/22 3:19 PM) 20 br/min (03/07/22 1:56 PM) 20 br/min (03/07/22 8:40 AM) Temperature [96.8-100.4 DegF] 97.7 DegF (03/07/22 3:19 PM) 97.5 DegF (03/07/22 8:40 AM) 98.0 DegF (03/06/22 4:13 PM) Mode of Delivery (Oxygen) Room air (03/07/22 3:19 PM) CPAP (03/07/22 1:56 PM) Room air (03/07/22 8:40 AM) Blood pressure sites Arm, left (03/06/22 4:13 PM) Arm, left (03/05/22 11:18 PM) Arm, left (03/05/22 6:46 PM) Temperature Route Oral (03/07/22 3:19 PM) Oral (03/07/22 8:40 AM) Oral (03/06/22 4:13 PM)
--- OUTSIDE RECORDS SUMMARY | 2022-12-19 18:40 | XMS_ITS | Continuity of Care Document ---
Author Name Unknown Organization [facility] Address [address] [place] [address]- Care Team Providers Care Die Barber Name Role Phone Lynn Abad MD Primary Care Physician Encounter [facility] Date(s): 10/14/20 - 11/13/20 [facility] [address] [place] [id number]- Allergies, Adverse Reactions, Alerts Substance Reaction Severity Status naproxen Active benzodiazepines Active Bactrim Active [place] Active Tomatoes Active Lactose Active Immunizations Given [...] 12/22/18 16:41:43 EDT, Route to Pharmacy Electronically, [id number], [place] [address] Start Date: 12/22/18 Status: Ordered Ibuprofen 400 [...]
--- OUTSIDE RECORDS SUMMARY | 2022-12-19 18:40 | XMS_ITS | Continuity of Care Document ---
Author Name Unknown Organization [facility] Inpatient Psychiatry Address [address] [place] [address]- Care Team Providers Care Search Developer Name Role Phone Melissa Guevara Primary Care Physician Encounter [facility] [place] Date(s): 11/11/22 - 11/16/22 [facility] Inpatient Psychiatry [address] [place] [address]- Discharge Disposition: A-D/C Home Attending Physician: Naa Salomon MD Admitting Physician: Naa Salomon MD Referring Physician: Not on Staff, Referring MD Allergies, Adverse Reactions, Alerts Substance Reaction Severity Status naproxen unknown Active benzodiazepines unknown Active OxyCONTIN Unknown Unknown Active sulfa drugs Active Valium Active Bactrim unknown Active Benadryl [...] influenza virus vaccine, inactivated 04/10/13 Tuan rded [id number] 12y+ bivalent booster vax 05/02/22 Recorded zoster [...] hepatitis B adult vaccine 08/27/13 Recorded Medications Acetaminophen Tablet 325 mg, Tablet, By Mouth, Every 4 hours, PRN for Pain , Mild, Routine, 11/11/22 15:20:00 EDT Start Date: 11/11/22 Stop Date: 11/16/22 Status: Discontinued albuterol CFC free 90 mcg/inh inhalation aerosol 180 mcg, 2, puffs, Inhalation, Every 4 hours, PRN, Refills 0, Maintenance, 03/13/22 21:21:00 EDT, Inhaler Start Date: 03/13/22 Status: Ordered albuterol-ipratropium 3 mg-0.5 mg/3 ml inhalation solution 3 mL, Neb, 2 times a day, 0 Refills, Maintenance, 12/08/21 9:06:00 EDT, Solution, ; Start Date: 12/08/21 Status: Ordered amoxicillin-clavulanate 875 mg-125 mg oral tablet = 875 mg, By Mouth, 2 times a day, # 8 tablet, 0 Refills, Acute 12/15/22 21:00:00 EDT, 11/15/22 14:25:00 EDT, Tablet, [id number], Partial fill upon patient request if the prescription is for a schedule II opioid drug., 158, cm,... Start Date: 11/15/22 Stop Date: 12/15/22 Status: Ordered Benadryl 25 mg oral capsule 2 capsule = 50 mg, By Mouth, Every 6 hours, PRN Other, 0 Refills, Maintenance, 11/11/22 14:25:00 EDT, Partial fill upon patient request if the prescription is for a schedule II opioid drug. Start Date: 11/11/22 Status: Ordered Keith-Gest 500 mg oral tablet, chewable 2 tablet = 1,000 mg, By Mouth, Every 8 hours, PRN Dyspepsia, 0 Refills, Maintenance, 03/29/21 15:04:00 EDT, ; Start Date: 03/29/21 Status: Ordered carBAMazepine 400 mg oral tablet, extended release 400 mg, 1, tablet, By Mouth, 3 times a day, # 90 tablet, Refills 0, Tot. Refills 0, Maintenance, 11/15/22 14:23:00 EDT, Route to Pharmacy Electronically, [facility]-[id number], Partial fill upon patient request if the prescription is for... Start Date: 11/15/22 Status: Ordered cetirizine 10 mg oral tablet 1 tablet = 10 mg, By Mouth, Daily, Maintenance, 03/06/22 12:28:00 EDT, Tablet, ; Start Date: 03/06/22 Status: Ordered D3 1000 oral tablet 1 tablet = 1,000 International_Units, By Mouth, Daily, 0 Refills, Maintenance, 12/18/18 11:45:21 EDT Start Date: 12/18/18 Status: Ordered fluticasone-vilanterol Inhalation, Daily, 0 Refills, Maintenance, 11/15/22 14:25:00 EDT, Inhaler, Partial fill upon patient request if the prescription is for a schedule II opioid drug. Start Date: 11/15/22 Status: Ordered gabapentin 400 mg oral capsule 400 mg, 1, capsule, By Mouth, 3 times a day, Refills 0, Maintenance, 11/15/22 14:23:00 EDT, Partialfill upon patient request if the prescription is for a schedule II opioid drug. Start Date: 11/15/22 Status: Ordered gabapentin 400 mg oral capsule 400 mg, Capsule, By Mouth, 11/16/22 9:00:00 EDT Start Date: 11/16/22 Stop Date: 11/16/22 Status: Completed ibuprofen 400 mg oral tablet 400 mg, Tablet, By Mouth, 3 times a day, PRN for Pain , Mild, Routine, 11/13/22 20:52:00 EDT Start Date: 11/13/22 Stop Date: 11/16/22 Status: Discontinued Incruse Ellipta 62.5 mcg/inh inhalation powder 1 puff, Inhalation, Daily, 0 Refills, Maintenance, 03/29/21 15:08:00 EDT, ; Start Date: 03/29/21 Status: Ordered lactase 3000 u oral tablet 2 tablets, By Mouth, 3 times a day, PRN Other, 0 Refills, Maintenance, 12/18/18 11:42:28 EDT Start Date: 12/18/18 Status: Ordered melatonin 3 mg oral tablet = 9 mg, By Mouth, Daily at bedtime, PRN Sleep, 0 Refills, Maintenance, 11/15/22 14:25:00 EDT, Tablet, Partial fill upon patient request if the prescription is for a schedule II opioid drug. Start Date: 11/15/22 Status: Ordered metFORMIN 500 mg oral tablet, extended release 2 tablet = 1,000 mg, By Mouth, Daily, 0 Refills, Maintenance, 11/15/22 14:24:00 EDT, ER Tablet, Partial fill upon patient request if the prescription is for a schedule II opioid drug. Start Date: 11/15/22 Status: Ordered Multivitamin 1 tablet, Daily, 0 Refills, Maintenance, 12/08/21 9:07:00 EDT, ; Start Date: 12/08/21 Status: Ordered prazosin 1 mg oral capsule 4 mg, Capsule, By Mouth, Hold for: SBP<90 and/or DBP<60, 11/15/22 21:00:00 EDT Start Date: 11/15/22 Stop Date: 11/15/22 Status: Completed prazosin 1 mg oral capsule 4 mg, 4, capsule, By Mouth, Daily at bedtime, Refills 0, Maintenance, 11/15/22 14:24:00 EDT, Partial fill upon patient request if the prescription is for a schedule II opioid drug. Start Date: 11/15/22 Status: Ordered Protonix 40 mg oral delayed release tablet 1 tablet = 40 mg, By Mouth, 2 times a day, 0 Refills, Maintenance, 03/29/21 15:15:00 EDT Start Date: 03/29/21 Status: Ordered QUEtiapine 100 mg oral tablet 100 mg, 1, tablet, By Mouth, Daily at bedtime, Refills 0, Maintenance, 11/15/22 14:24:00 EDT, Partial fill upon patient request if the prescription is for a schedule II opioid drug. Start Date: 11/15/22 Status: Ordered Refresh - solution 1 drops, Eyes, Both, 4 times a day, PRN for dry eyes, 0 Refills, Maintenance, 12/08/21 9:07:00 EDT,Solution, ; Start Date: 12/08/21 Status: Ordered traZODone 50 mg oral tablet 200 mg, 4, tablet, By Mouth, Daily at bedtime, Refills 0, Maintenance, 11/15/22 14:25:00 EDT, Partial fill upon patient request if the prescription is for a schedule II opioid drug. Start Date: 11/15/22 Status: Ordered Problem List Condition Confirmation Course Effective Dates Status Health St atus Informant Severe obesity Confirmed Active Results Radiology Reports * Exam Date Time Procedure Performing Provider Status 11/15/22 8:52 AM Knee 1 or 2 Views Right Karolina Key ; Auth (Verified) Notes: (Knee 1 or 2 Views Right) Reason For Exam: Pain after fall;Pain RESULT: Knee 1 or 2 Views Right Knee 1 or 2 Views Right, 2 views Reason: Pain after fall; Clinical Question(s): Fracture COMPARISON: None. FINDINGS: There is no evidence of acute or healing fracture, dislocation or bone lesion. No arthritic changes. No osteochondral defects or intra-articular loose bodies. No evidence of joint effusion. IMPRESSION: No acute displaced fracture. WSN: [id number] Ordering Physician: Good Lyman Dictated By: Betsy Espinosa MD Dictated Date/Time: 11/15/22 9:15 am Reviewed By: Betsy Espinosa MD Signed By: Betsy Espinosa MD Signed Date/Time: 11/15/22 9:15 am Transcribed By: KENDY Transcribed Date/Time: 11/15/22 9:15 am * Exam Date Time Procedure Performing Provider Status 11/15/22 8:[address] Head/Brain W/O Contrast Buffy Houser; Modified Notes: (CT Head/Brain W/O Contrast) Reason For Exam: Headache(s) RESULT: CT Head/Brain W/O Contrast CT Head/Brain W/O Contrast Reason: Headache(s); Clinical Question(s): Hematoma. TECHNIQUE: Noncontrast head CT using axial technique and reconstructed in axial and coronal planes.Weight-based protocol using automatic tube modulation was used to optimize exposure parameters. CTDIvol Head: 45.20 mGy, DLP Head: 772 mGy*cm. COMPARISON: Correlation with MRI brain with and without contrast 10/22/2013. FINDINGS: BRAIN and EXTRA-AXIAL SPACES: No parenchymal hemorrhage, midline shift or mass effect. De La O-white matter differentiation is well preserved. No acute infarct. Ventricles, sulci and basilar cisterns are normal. No white matter lesions. No subarachnoid hemorrhage, subdural or epidural collections. CALVARIUM, SKULL BASE AND SOFT TISSUES: No fractures or suspicious bony lesions. The paranasal sinuses and mastoid air cells are clear. Visualized orbits and globes are intact. The extracranial soft tissues are unremarkable. IMPRESSION: No acute intracranial abnormality. I have personally reviewed the images and I agree with this report. WSN: [id number] Ordering Physician: Good Lyman Dictated By: Philip Lou MD Dictated Date/Time: 11/15/22 10:24 a Reviewed By: Hakeem Carrion MD Signed By: Hakeem Carrion MD Signed Date/Time: 11/15/22 10:29 am Transcribed By: KENDY Transcribed Date/Time: 11/15/22 9:07 am Vital Signs Most recent to oldest [Reference Range]: 1 2 3 Height 158 cm (11/16/22 8:30 AM) 158 cm (11/15/22 8:26 AM) 158 cm (11/14/22 8:04 PM) Weight 112.1 kg (11/11/22 2:34 PM) 110.5 kg (11/11/22 12:13 PM) 110.5 kg (11/09/22 9:32 PM) Oxygen Saturation [94-100 %] 93 % *L* (11/16/22 8:30 AM) 99 % (11/15/22 8:26 AM) 99 % (11/14/22 8:04 PM) Pulse Rate [55-90 bpm] 85 bpm (11/16/22 8:30 AM) 80 bpm (11/15/22 8:26 AM) 94 bpm *H* (11/14/22 8:04 PM) Body Mass Index [18.5-24.99 kg/m2] 44.9 kg/m2 *>HHI* (11/11/22 2:34 PM) 44.26 kg/m2 *>HHI* (11/11/22 12:13 PM) Blood Pressure [90-138/55-84 mm Hg] 124/72mm Hg (11/16/22 8:30 AM) 139/79mm Hg *H* (11/15/22 8:16 PM) 140/85mm Hg *H* (11/15/22 8:26 AM) Respiratory Rate [16-30 br/min] 18 br/min (11/16/22 10:22 AM) 18 br/min (11/16/22 10:22 AM) 18 br/min (11/16/22 10:22 AM) Temperature [96.8-100.4 DegF] 98.1 DegF (11/16/22 8:30 AM) 98.2 DegF (11/15/22 8:26 AM) 96.6 DegF *L* (11/14/22 8:04 PM) Mode of Delivery (Oxygen) Room air (11/16/22 8:30 AM) Room air (11/15/22 8:26 AM) Room air (11/14/22 8:04 PM) Blood pressure sites Arm, left (11/16/22 8:30 AM) Arm, right (11/15/22 8:26 AM) Arm, left (11/14/22 8:04 PM) Temperature Route Temporal (11/16/22 8:30 AM) Tympanic (11/15/22 8:26 AM) Temporal (11/14/22 8:04 PM) Dry Weight 112.1 kg (11/11/22 2:34 PM) 110.5 kg (11/11/22 12:13 PM) 110.5 kg (11/09/22 9:32 PM) Weight Obtained Via Standing scale (11/11/22 2:34 PM) History and physical note * Omar HERCULES, Yair Gould: PERFORM Event Display: History and Physical Hospital Authored Date: [id number] Patient: ??ARPITA MORA ? Age:??52 Years?Sex:??Female?:??1970?? Chief Complaint/Reason for Consultation unsafe History of Present Illness ?Arpita was referred for admission by [facility] where she had been staying. She reported feeling unable to maintain her safety and was having urges to put her head and hands through awindow. She wants her meds reviewed and c/o increased respiratory issues since having Covid. Upset that her doctor did not write her a prescription for oxygen. Her parents are her guardians and court paperwork is on her chart. Per [facility], Arpita let her parents know of her ??admission.?? Arpita reports??her current??distress began on Saturday??when she [facility].?? She??is not sure why she did it.?? She was then??admitted to [facility] and prescribed benzodiazepines. ??She??states she is allergic to benzodiazepines and has been feeling unwell since then.?Also states she was??discharged??with a Tegretol level of 6.9,??when generally she does best??at a Tegretol level of 9 or above.?States??her mother calls these??increases in psychiatric symptoms??her brain hiccups .?? She is??unable to identify??why this 1 began, but she has been feeling manicky panicky dissociative .?? She??is having symptoms of depression including??suicidal ideation,??feelings of sadness.?? She denies current suicidal ideation.?? Her manic??the panicky dissociative?? symptoms also include anxiety, with a feeling of being overwhelmed, difficulty sleeping, and feeling??of shakiness.?? She states her??goals for this admission are to bring her Tegretol level up to 9 or above, to slow herself down, and to get better sleep.?? She would like to go over??her med list and consider??adjustments.?? She endorses??currently feeling??sad, scared??and out of control. ??She feels out of control of her??emotions, overwhelmed and frustrated. Review of Systems Constitutional:??No weight loss, fever, chills, weakness or fatigue. Allergy/Immune: Denies any??Eczema or hives Eyes:??No visual loss, blurred vision, double vision or yellow sclera ENT:??No hearing loss, sneezing, congestion, runny nose or sore throat. Respiratory:??No shortness of breath, cough or sputum production. Cardiovascular:??No chest pain, chest pressure or chest discomfort. No palpitations or pedal edema. Gastrointestinal:??No anorexia, nausea, vomiting or diarrhea. No abdominal pain or blood in stool. Genitourinary:??No burning micturition. No urinary frequency or incontinence. Neurologic:??No headache, dizziness, syncope, unilateral weakness, ataxia, numbness or tingling in the extremities. No change in bowel or bladder control. Musculoskeletal:??No muscle pain, back pain, joint pain or stiffness. Hematologic/Lymphatics:??No bleeding or bruising. No painful lymph nodes. Skin:??No rash or itching. Endocrine:??No reports of sweating. No cold or heat intolerance. No polyuria or polydipsia. Psychiatric:??No depression or anxiety. Objective Measurements?? Height: 158 cm (11/12/22) Weight: 112.1 kg (11/11/22) Dry Weight: 112.1 kg (11/11/22) Body Mass Index:??44.9 kg/m2??Critical (11/11/22) ? Vital Signs?? Temperature: 97.1 DegF (11/12/22 08:46:00) Temperature Route: Temporal (11/12/22 08:46:00) Pulse Rate:??98 bpm??High (11/12/22 08:46:00) Respiratory Rate: 16 br/min (11/12/22 19:05:00) Systolic Blood Pressure: 108 mm Hg (11/12/22 08:46:00) Diastolic Blood Pressure: 64 mm Hg (11/12/22 08:46:00) Blood pressure sites: Arm, left (11/12/22 08:46:00) Mean Arterial Pressure: 79 mm Hg (11/12/22 08:46:00) Pulse Pressure: 44 mm Hg (11/12/22 08:46:00) Oxygen Saturation: 97 % (11/12/22 08:46:00) Mode of Delivery (Oxygen): Room air (11/12/22 08:46:00) ? Pain Scores?? No qualifying data available. ? Intake/Output? No Data Available ? Physical Exam Constitutional: Alert, in no distress. Mental Status: Oriented to person, place and time. Head: Normocephalic. Eyes: Pupils are equal, round and reactive to light. Extraocular muscles intact. Ear, Nose and Throat: Oropharynx clear, mucous membranes moist. Ears and nose without masses, lesions or deformities. Trachea midline. Neck: Supple, Full range of motion. Respiratory: Clear to auscultation. No wheezing, rales or rhonchi. Cardiovascular: S1 S2 regular. No murmurs, rubs or gallops. Gastrointestinal: Abdomen soft, non-tender, non-distended. Normal bowel sounds. No pulsatile mass. No hepatosplenomegaly. Genitourinary: No costovertebral angle tenderness. Neurologic: Cranial nerves II-XII grossly intact. No focal neurological deficits. Flexor plantar response. Moves all extremities spontaneously. Sensation intact bilaterally. Skin: No rashes or lesions. No petechiae or purpura.?? Musculoskeletal: No cyanosis or clubbing. No gross deformities. Normal range of motion. Heme/Lymphatics/Immun: Palpation of neck reveals no swelling or tenderness of neck nodes. Palpationof groin reveals no swelling or tenderness of groin nodes. Psychiatric: Normal mood and affect Assessment/Plan ?Arpita was referred for admission by [facility] where she had been staying. She reported feeling unable to maintain her safety and was having urges to put her head and hands through awindow. She wants her meds reviewed and c/o increased respiratory issues since having Covid. Upset that her doctor did not write her a prescription for oxygen. Her parents are her guardians and court paperwork is on her chart. Per [facility], Arpita let her parents know of her ??admission.?? Arpita reports??her current??distress began on Saturday??when she put her hand through a window [facility] her jail.?? She??is not sure why she did it.?? She was then??admitted to [facility] and prescribed benzodiazepines. ??She??states she is allergic to benzodiazepines and has been feeling unwell since then.?Also states she was??discharged??with a Tegretol level of 6.9,??when generally she does best??at a Tegretol level of 9 or above.?States??her mother calls these??increases in psychiatric symptoms??her brain hiccups .?? She is??unable to identify??why this 1 began, but she has been feeling manicky panicky dissociative .?? She??is having symptoms of depression including??suicidal ideation,??feelings of sadness.?? She denies current suicidal ideation.?? Her manic??the panicky dissociative?? symptoms also include anxiety, with a feeling of being overwhelmed, difficulty sleeping, and feeling??of shakiness.?? She states her??goals for this admission are to bring her Tegretol level up to 9 or above, to slow herself down, and to get better sleep.?? She would like to go over??her med list and consider??adjustments.?? She endorses??currently feeling??sad, scared??and out of control. ??She feels out of control of her??emotions, overwhelmed and frustrated. ?? Asthma. Recent flare after COVID. Was on prednisone. Improved. No wheezing on exam. Will order albuterol q6h prn ?? T2DM. On metformin BS are at goal ?? Histories Allergies Allergies ?(Active and Proposed Allergies Only) Benadryl? (Severity: Unknown, Onset: Unknown) ?Reactions: Unknown OxyCONTIN? (Severity: Unknown, Onset: Unknown) ?Reactions: Unknown Valium? (Severity: Unknown severity, Onset: Unknown) sulfa drugs? (Severity: Unknown severity, Onset: Unknown) benzodiazepines? (Severity: Unknown severity, Onset: Unknown) ?Reactions: unknown naproxen? (Severity: Unknown severity, Onset: Unknown) ?Reactions: unknown Bactrim? (Severity: Unknown severity, Onset: Unknown) ?Reactions: unknown ? Past Medical History/Problem List Active Problems??(1) Severe obesity ? Past Surgical History No surgery history documented. ? Social History No social history documented. ? Family History No family history recorded. ? Medications Home Medications Albuterol (albuterol CFC free 90 mcg/inh inhalation aerosol)?2?puff(s)?Inhalation?Every4 hours?as needed?Wheezing/Shortness of Breath Albuterol/Ipratropium (albuterol-ipratropium 3 mg-0.5 mg/3 ml inhalation solution)?3?Milliliter?Neb?2 times a day Aspirin (Ecotrin 325 mg oral delayed release tablet)?1?tab(s)?325?Milligram?By Mouth?Daily Calcium Carbonate (Keith-Gest 500 mg oral tablet, chewable)?2?tab(s)?1,000?Milligram?By Mouth?Every 8 hours?as needed?Dyspepsia Carbamazepine (TEGretol XR 400 mg oral tablet, extended release)?400?Milligram?1?tablet?By Mouth?Every 12 hours Carbamazepine (TEGretol XR 400 mg oral tablet, extended release)?400?Milligram?1?tablet?By Mouth?2 times a day?give with 200 mg-total 600 mg BID Carbamazepine (TEGretol XR 200 mg oral tablet, extended release)?1?tab(s)?200?Milligram?By Mouth?2 times a day?give with 400mg -total 600mg BID Carbamazepine (TEGretol XR 400 mg oral tablet, extended release)?See Instructions?1 tablet ByMouth Daily at 1700 Carbamazepine (TEGretol XR 100 mg oral tablet, extended release)?100?Milligram?1?tablet?By Mouth?Daily at bedtime?give with 600 mg-total 700mg at HS Cetirizine (cetirizine 10 mg oral tablet)?1?tab(s)?10?Milligram?By Mouth?Daily Cholecalciferol (D3 1000 oral tablet)?1?tab(s)?1,000?International Unit?By Mouth?Daily Dicyclomine (dicyclomine 10 mg oral capsule)?1?capsule?10?Milligram?By Mouth?4 times a day?as needed?Dyspepsia DiphenhydrAMINE (Benadryl 25 mg oral capsule)?2?capsule?50?Milligram?By Mouth?Every 6 hours?as needed?Other Famotidine (famotidine 20 mg oral tablet)?20?Milligram?1?tablet?By Mouth?Daily atbedtime Fluticasone-Salmeterol (Advair Diskus 100 mcg-50 mcg inhalation powder)?1 PUFF?Inhalation?2 times a day Gabapentin (gabapentin 300 mg oral capsule)?300?Milligram?1?capsule?By Mouth?3 times a day Gabapentin (gabapentin 400 mg oral capsule)?400?Milligram?1?capsule?By Mouth?3 times a day HydrOXYzine (hydrOXYzine pamoate 50 mg oral capsule)?2?capsule?100?Milligram?By Mouth?3 times a day?as needed?as needed Lactase (lactase 3000 u oral tablet)?2 tablets?By Mouth?3 times a day?as needed?Other Metformin (MetFORMIN (Eqv-Glucophage XR) 500 mg oral tablet, extended release)?2?tab(s)?1,000?Milligram?By Mouth?Daily Multivitamin?1?tab(s)?Daily Ocular Lubricant (Refresh - solution)?1?Drops?Eyes, Both?4 times a day?as needed?for dry eyes Pantoprazole (Protonix 40 mg oral delayed release tablet)?1?tab(s)?40?Milligram?By Mouth?2 times a day Piroxicam (piroxicam 10 mg oral capsule)?1?capsule?10?Milligram?By Mouth?2 times a day Prazosin (Minipress 1 mg oral capsule)?2?Milligram?2?capsule?By Mouth?Daily at bedtime PredniSONE (predniSONE 20 mg oral tablet)?2?tab(s)?40?Milligram?By Mouth?Daily?for 4?Days Quetiapine (SEROquel 100 mg oral tablet)?100?Milligram?1?tablet?By Mouth?Daily atbedtime Trazodone (traZODone 100 mg oral tablet)?200?Milligram?2?tablet?By Mouth?Daily atbedtime umeclidinium (Incruse Ellipta 62.5 mcg/inh inhalation powder)?1 puff?Inhalation?Daily ? Inpatient Medications Medications (16) Active SCHEDULED: (10) Breo Ellipta 100 mcg / 25 mcg Inhaler (Breo Ellipta 100 mcg-25 mcg Inhaler) ??1 puffs, Inhalation, Daily Carbamazepine 100 mg XR Tablet (carBAMazepine 100 mg oral tablet, extended release) ??600 mg, By Mouth, Daily in AM Carbamazepine 100 mg XR Tablet + Carbamazepine 400 mg XR Tablet (Carbamazepine XR Tablet) ??700 mg,By Mouth, Daily at bedtime Carbamazepine 400 mg XR Tablet (carBAMazepine 400 mg oral tablet, extended release) ??400 mg, By Mouth, Daily Cetirizine 5 mg / 5mL Syrup (UD) (Cetirizine Liquid) ??10 mg 10 mL, By Mouth, Daily Gabapentin 400 mg Capsule (gabapentin 400 mg oral capsule) ??400 mg, By Mouth, 3 times a day MetFORMIN 500 mg ER Tablet (metFORMIN 500 mg oral tablet, extended release) ??1,000 mg, By Mouth, Daily Prazosin 1 mg Capsule (prazosin 1 mg oral capsule) ??4 mg, By Mouth, Daily at bedtime Quetiapine 100 mg Tablet (QUEtiapine 100 mg oral tablet) ??100 mg, By Mouth, Daily at bedtime Trazodone 50 mg Tablet (traZODone 50 mg oral tablet) ??200 mg, By Mouth, Daily at bedtime CONTINUOUS: (0) PRN: (6) Acetaminophen 325 mg Tablet (Acetaminophen Tablet) ??325 mg, By Mouth, Every 4 hours Al hydroxide/Mg hydroxide/simethicone 200 mg-200 mg-20 mg/5 mL Susp UD (Maalox Plus Liquid) ??30 mL, By Mouth, Every 4 hours Benzocaine 10% Oral Gel (Orajel 10% Gel) ??1 application, Topically, Every 4 hours Haloperidol 5 mg Tablet (haloperidol 5 mg oral tablet) ??5 mg, By Mouth, Every 6 hours HydrOXYzine Pamoate 25mg Capsule (hydrOXYzine pamoate 25 mg oral capsule) ??100 mg, By Mouth, Every6 hours Melatonin 3 mg Tablet (Melatonin Tablet) ??9 mg, By Mouth, Daily at bedtime ? Results Recent Labs CHEM GENERAL Glucose, POC 98 mg/dL ()?? 11/12/2022 06:40 ?? HEME OTHER Hold Lavender Top SPECIMEN DISCARDED AFTER 24 HOURS. ()?? 11/12/2022 06:22 ?? MISC. CHEMISTRY Hold Gel Top SPECIMEN DISCARDED AFTER 1 WEEK ()?? 11/12/2022 06:22 ?? TOXICOLOGY/TDM Carbamazepine Level 13.0 mg/L (High)?? 11/12/2022 06:22 ?? VIROLOGY COVID-19 PCR Specimen Source NASAL ()?? 11/12/2022 09:42 COVID-19 PCR Result NEGATIVE ()?? 11/12/2022 09:42 ? Admission evaluation note * Arpita Portillo NPbeth: MODIFY, MODIFY, PERFORM Event Display: Admission Note Authored Date: [id number] Patient: ??ARPITA MORA ? Age:??52 Years?Sex:??Female?:??1970?? Chief Complaint/Reason for Consultation unsafe History of Present Illness Pt seen for:??30 minutes Total Time spent with pt:??70 minutes Discussed pt in meeting with RN, , SW. Labs, notes, and orders reviewed. ?? Identifying information: Arpita Mora is a 52-year-old female with past medical history significantfor asthma, chronic pain disorder, diabetes, GERD, mood disorder, depression who initially presented to [facility] for suicidal ideation. ?? [1] ?? History of Present Illness ?Arpita was referred for admission by [facility] where she had been staying. She reported feeling unable to maintain her safety and was having urges to put her head and hands through a window. She wants her meds reviewed and c/o increased respiratory issues since having Covid. Upset thather doctor did not write her a prescription for oxygen. Her parents are her guardians and court paperwork is on her chart. Per Pema at Crisis, Arpita let her parents know of her ??admission.?? Arpita reports??her current??distress began on Saturday??when she put her hand through a window at her jail.??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
--- OUTSIDE RECORDS SUMMARY | 2022-12-19 18:40 | XMS_ITS | Continuity of Care Document ---
Author Name Unknown Organization [facility] Address [address] [place] [address]- Care Team Providers Care Analyst Ge[employer] Prospecting Name Role Phone Lynn Abad MD Primary Care Physician Encounter [facility] [place] [id number] Date(s): 10/18/20 - 11/17/20 [facility] [address] [place] [id number] Attending Physician: Chino Love Admitting Physician: Chino Love Referring Physician: AdmtrChino Allergies, Adverse Reactions, Alerts Substance Reaction Severity Status naproxen Active benzodiazepines Active Bactrim Active [place] Active Tomatoes Active Lactose Active Immunizations Given [...] 12/22/18 16:41:43 EDT, Route to Pharmacy Electronically, [id number], [place] [address] Start Date: 12/22/18 Status: Ordered Ibuprofen 400 [...]
--- OUTSIDE RECORDS SUMMARY | 2022-12-19 18:40 | XMS_ITS | Continuity of Care Document ---
Author Name Unknown Organization [facility] ter Address [address] [place] [address]- Care Team Providers Care Medical Office Assistant Name Role Phone Lynn Abad MD Primary Care Physician Encounter [facility] [place] Date(s): 04/03/21 - 04/04/[address] [address]- Discharge Disposition: A-D/C Home Attending Physician: Telly Adhikari MD Admitting Physician: Telly Adhikari MD Referring Physician: Telly Adhikari MD Allergies, Adverse Reactions, Alerts Substance Reaction Severity Status naproxen unknown Active benzodiazepines unknown Active Bactrim unknown Active [place] because of acid reflux Act maicol Tomatoes [...] oral capsule 300 mg, Capsule, By Mouth, 04/04/21 9:00:00 EDT Start Date: 04/04/21 Stop Date: 04/04/21 Status: Completed gabapentin 400 mg oral capsule [...] oldest [Reference Range]: 1 2 3 Height 155 cm (04/04/21 4:57 AM) 155 cm (04/04/21 12:53 AM) 155 cm (04/03/21 8:27 PM) Weight 115.4 kg (04/03/21 9:23 AM) 120 kg (03/29/21 4:07 PM) Oxygen Saturation [94-100 %] 98 % (04/04/21 7:30 AM) 95 % (04/04/21 4:57 AM) 96 % (04/04/21 12:53 AM) Pulse Rate [55-90 bpm] 78 bpm (04/04/21 4:57 AM) 81 bpm (04/04/21 12:53 AM) 93 bpm *H* (04/03/21 8:27 PM) Body Mass Index [18.5-24.99] 48.03 *>HHI* (04/03/21 9:23 AM) 49.95 *>HHI* (03/29/21 4:07 PM) Blood Pressure [90-138/55-84 mm Hg] 112/77mm Hg (04/04/21 9:45 AM) 152/61mm Hg *H* (04/04/21 7:30 AM) 106/52mm Hg (04/04/21 4:57 AM) Respiratory Rate [16-30 br/min] 18 br/min (04/04/21 9:45 AM) 18 br/min (04/04/21 9:41 AM) 20 br/min (04/04/21 7:30 AM) Temperature [96.8-100.4 DegF] 97.9 DegF (04/04/21 7:30 AM) 97.4 DegF (04/04/21 4:57 AM) 97.8 DegF (04/04/21 12:53 AM) Liters per Minute 0 L/min (04/04/21 9:45 AM) 0 L/min (04/04/21 7:30 AM) 2 L/min (04/03/21 3:00 PM) Mode of Delivery (Oxygen) Room air (04/04/21 9:45 AM) Room air (04/04/21 7:30 AM) Room air (04/04/21 4:57 AM) Blood pressure sites Arm, right (04/04/21 9:45 AM) Arm, right (04/04/21 7:30 AM) Arm, left (04/04/21 4:57 AM) Temperature Route Temporal (04/04/21 7:30 AM) Oral (04/04/21 4:57 AM) Oral (04/04/21 12:53 AM) Dry Weight 115.4 kg (04/03/21 9:23 AM) 120 kg (03/29/21 4:07 PM) Weight Obtained Via Standing scale (04/03/21 9:23 AM) Dry Weight Obtained Via Standing scale (04/03/21 9:23 AM) Patient/family stated (03/29/21 4:07 PM)
--- OUTSIDE RECORDS SUMMARY | 2022-12-19 18:40 | XMS_ITS | Continuity of Care Document ---
Author Name Unknown Organization [facility] Address [address] [place] [address]- Care Team Providers Care Service Greeter Name Role Phone Lynn Abad MD Primary Care Physician [phone] Encounter [place] Date(s): 08/16/20 - 09/15/20 [facility] [address] [place] [address]- Allergies, Adverse Reactions, Alerts Substance Reaction Severity Status naproxen Active benzodiazepines Active Bactrim Active [place] Active Tomatoes Active Lactose Active Immunizations Given [...] 12/22/18 16:41:43 EDT, Route to Pharmacy Electronically, [id number], [place] [address] Start Date: 12/22/18 Status: Ordered Ibuprofen 400 [...]
[2022-12-19 19:04] LABS: COVID-19 Test Negative (Negative); IDNOW Serial# BCCEAD1C
[2022-12-19 19:06] LABS: MANUAL DIFF FLAG NO
[2022-12-19 19:07] LABS: Basophils Percent Auto 0.3 % (0-2); Eosinophils Absolute Auto 0.2 X10*3/uL (0.0-0.4); Eosinophils Percent Auto 2.3 % (0-4); Hematocrit 30.7 % (37.0-47.0); Imm Gran Abs Auto 0.09 X10*3/uL (0.00-0.03); Lymphocytes Absolute Auto 1.9 X10*3/uL (1.2-4.9); Lymphocytes Percent Auto 20.4 % (20-40); Mean Corpuscular HGB Conc 29.3 g/dl (31.0-35.0); Mean Corpuscular Hemoglobin 22.6 pg (27.0-33.0); Mean Corpuscular Volume 77.1 fL (80.0-98.0); Mean Platelet Volume 9.2 fL (9.4-12.3); Monocytes Absolute Auto 0.6 X10*3/uL (0.1-1.2); Monocytes Percent Auto 6.4 % (2-11); Neutrophils Absolute Auto 6.5 x10*3/uL (2.0-8.3); Neutrophils Percent Auto 69.6 % (45-73); Platelet Count 238 X10*3/uL (160-400); Red Blood Count 3.98 X10*6/uL (4.20-5.50); Red Cell Distribution Width 17.2 % (11.0-16.0); White Blood Count 9.4 X10*3/uL (4.8-10.8)
[2022-12-19 19:22] LABS: Alanine Aminotransferase 20 U/L (0-31); Albumin Level 4.1 g/dL (3.5-5.0); Alkaline Phosphatase 115 U/L (39-117); Anion Gap 12 (12-20); Aspartate Amino Transferase 23 U/L (5-31); Bilirubin Total 0.2 mg/dL (0.0-1.0); Blood Urea Nitrogen 16 mg/dL (9-16); Carbon Dioxide 27 mmol/L (22-29); Chloride 108 mmol/L (96-108); Creatinine Clr Calc Pharmacy 94.1; Estimated Glomerular Filt Rate > 60; Glucose Random 123 mg/dL (60-115); Potassium 3.9 mmol/L (3.3-5.1); Sodium 143 mmol/L (135-145)
[2022-12-19 19:35] LABS: Ethanol < 10 mg/dL
[2022-12-19] MEDS: hydrOXYzine HCL 50 MG TABLET 100 MG PO (19:39)
[2022-12-19 21:53] LABS: Appearance Urine Hazy; Glucose Urine UA Negative (Negative); Leukocyte Esterase Urine Trace (Negative); Nitrite Urine Negative (Negative); UMIC TRIGGER UACC YES; Urine Blood Large (3+) (Negative); Urine Ketones Negative (Negative); Urine Protein Trace mg/dL (Neg-Trace)
[2022-12-19 21:54] LABS: Color Urine PINK
[2022-12-19 22:02] LABS: Amphetamine Screen Urine Not Detected (Not Detect); Barbiturates, Urine Not Detected (Not Detect); Benzodiazepines Screen Urine Not Detected (Not Detect); Cannabinoid Screen Urine Not Detected (Not Detect); Cocaine Screen Urine Not Detected (Not Detect); Fentanyl, urine Not Detected (Not Detect); Opiate Screen Urine Not Detected (Not Detect); Phencyclidine Screen Urine Not Detected (Not Detect)
[2022-12-19 22:09] LABS: Bacteria Urine None Seen (None Seen); Hyaline Casts Urine 0-2 /LPF (0-2); RBC Urine >20 /HPF (0-2); Squamous Epithelial Cell Urine 0-2 /HPF (0-2); UACC Culture Trigger YES
[2022-12-19 23:13] VITALS: BP 153/84; PULSE 75; RESP 16; TEMP 36.3; O2SAT 98
[2022-12-20] MEDS: Ibuprofen 800 MG TABLET PO (02:41)
--- NOTE | 2022-12-20 05:52 | MHC.CARE ---
Parisa Machado from [employer] called at 5:50am . She is a Residential Therapy Coordinator . She mix chemist that Arpita was recently discharged from a long Inpatient Psych stay. She also stepped down to Respite afterwards. She believes that there were some med changes made. She gave me another phone number to reach [employer] ([phone]) who may have additional information.
--- NOTE | 2022-12-20 06:02 | PC.NURSE ---
Patient slept through the night, no distress observed/reported except cramp Ibuprofen 800 mg administered with + effect, med rec completed/pending provider's approval, patient engaged well with care team, disposition EYAD follow up due to inability to reach out to residential staff, patient will be revaluated by care team with possibility of inpatient bed search disposition, behavior non concerning, will continue to monitor.
--- NOTE | 2022-12-20 08:16 | PHA.MEDREC ---
Pharmacy Consult ? Medication Reconciliation Pharmacy has reviewed the medication reconciliation. Had unit fax me the list, double checked everything was the same.
[2022-12-20] MEDS: Omeprazole 20 MG CAPSULE.DR PO ×2 (08:48→15:27)
[2022-12-20] MEDS: Multivitamin TABLET 1 TAB PO (08:48)
[2022-12-20] MEDS: Cholecalciferol (Vitamin D3) 25 MCG TABLET PO (08:48)
[2022-12-20] MEDS: Gabapentin 400 MG CAPSULE PO ×3 (08:48→21:14)
[2022-12-20] MEDS: Docusate Sodium 100 MG CAPSULE PO (08:49)
[2022-12-20] MEDS: NaPROXEN 500 MG TABLET PO (08:49)
[2022-12-20] MEDS: Ondansetron ODT 4 MG TAB.RAPDIS 8 MG TRANSLINGU ×3 (08:50→15:27)
[2022-12-20] MEDS: Famotidine 20 MG TABLET 40 MG PO ×2 (08:51→21:14)
[2022-12-20] MEDS: Loratadine 10 MG TABLET PO (08:51)
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
--- NOTE | 2022-12-20 09:59 | ECG_ITS ---
Test Reason : PROLONGED QT Blood Pressure : / mmHG Vent. Rate : 064 BPM Atrial Rate : 064 BPM P-R Int : 178 ms QRS Dur : 092 ms QT Int : 432 ms P-R-T Axes : 012 -17 008 degrees QTc Int : 445 ms Normal sinus rhythm Low voltage QRS Inferior infarct , age undetermined Cannot rule out Anterior infarct (cited on or before 02-AUG-2021) Abnormal ECG When compared with ECG of 03-AUG-2021 17:43, No significant change was found Referred By: Sven Bazan Electronically Signed By:MADELEINE HALE MD
[2022-12-20] MEDS: carBAMazepine ER 200 MG TAB.ER.12H 400 MG PO ×3 (10:13→21:13)
[2022-12-20] MEDS: hydrOXYzine HCL 50 MG TABLET 100 MG PO ×2 (12:19→17:09)
[2022-12-20 13:45] VITALS: BP 147/68; PULSE 75; RESP 18; TEMP 36.4; O2SAT 96
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
[2022-12-20 15:00] LABS: Carbamazepine Tegretol 6.4 mcg/mL (5.0-12.0)
[2022-12-20] MEDS: metFORMIN HCl ER 500 MG TAB.ER.24H 1000 MG PO (15:26)
[2022-12-20 20:55] VITALS: BP 139/86; PULSE 78; RESP 20; TEMP 36.2; O2SAT 95
[2022-12-20 21:05] VITALS: PULSE 75; RESP 16; O2SAT 96
[2022-12-20] MEDS: Albuterol/Iprat 2.5/0.5MG 3 ML AMPUL.NEB INHALE (21:05)
[2022-12-20] MEDS: traZODone HCL 100 MG TABLET 200 MG PO (21:13)
[2022-12-20] MEDS: Prazosin HCL 1 MG CAPSULE 4 MG PO (21:13)
[2022-12-20] MEDS: Acetaminophen 325 MG TABLET 650 MG PO (21:13)
[2022-12-20] MEDS: QUEtiapine Fumarate 100 MG TABLET PO (21:14)
[2022-12-20] MEDS: Fluticasone/Vilanterol 100/25 BLST.W.DEV 1 PUFF INHALE (21:14)
[2022-12-20 21:38] VITALS: PULSE 61; O2SAT 97
[2022-12-21] MEDS: Omeprazole 20 MG CAPSULE.DR PO ×2 (06:34→17:17)
[2022-12-21 07:48] LABS: Estimated Average Glucose 108 mg/dL; Hemoglobin A1c % 5.4 %
[2022-12-21 08:10] VITALS: BP 139/77; PULSE 67; RESP 16; TEMP 36.6; O2SAT 96
[2022-12-21 08:48] LABS: Alanine Aminotransferase 18 U/L (0-31); Albumin Level 3.9 g/dL (3.5-5.0); Alkaline Phosphatase 110 U/L (39-117); Anion Gap 13 (12-20); Aspartate Amino Transferase 17 U/L (5-31); Bilirubin Total 0.2 mg/dL (0.0-1.0); Blood Urea Nitrogen 14 mg/dL (9-16); Calcium 9.2 mg/dL (8.4-10.2); Carbon Dioxide 28 mmol/L (22-29); Chloride 105 mmol/L (96-108); Cholesterol 182 mg/dL; Creatinine Clr Calc Pharmacy 96.7; Estimated Glomerular Filt Rate > 60; Glucose Fasting 119 mg/dL (60-99); HDL Cholesterol 31 mg/dL; LDL Cholesterol Calculated 107 mg/dl; Potassium 4.5 mmol/L (3.3-5.1); Sodium 141 mmol/L (135-145); Total Protein 6.7 g/dL (6.5-8.0); Triglycerides 220 mg/dL
[2022-12-21 09:07] LABS: Free T4 (Free Thyroxine) 0.81 ng/dL (0.71-1.85); Thyroid Stimulating Hormone 2.77 uIU/mL (0.32-4.0); Vitamin B12 603 pg/mL (200-900)
[2022-12-21] MEDS: Fluticasone/Vilanterol 100/25 BLST.W.DEV 1 PUFF INHALE ×2 (09:15→21:15)
[2022-12-21] MEDS: Ondansetron ODT 4 MG TAB.RAPDIS 8 MG TRANSLINGU ×3 (09:16→17:17)
[2022-12-21] MEDS: Multivitamin TABLET 1 TAB PO (09:16)
[2022-12-21] MEDS: carBAMazepine ER 200 MG TAB.ER.12H 400 MG PO (09:16)
[2022-12-21] MEDS: Famotidine 20 MG TABLET 40 MG PO ×2 (09:16→21:04)
[2022-12-21] MEDS: metFORMIN HCl ER 500 MG TAB.ER.24H 1000 MG PO (09:16)
[2022-12-21] MEDS: Docusate Sodium 100 MG CAPSULE PO (09:16)
[2022-12-21] MEDS: Loratadine 10 MG TABLET PO (09:17)
[2022-12-21] MEDS: Gabapentin 400 MG CAPSULE PO ×3 (09:17→21:04)
[2022-12-21] MEDS: Cholecalciferol (Vitamin D3) 25 MCG TABLET PO (09:17)
[2022-12-21] MEDS: Acetaminophen 325 MG TABLET 650 MG PO (12:26)
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
--- NOTE | 2022-12-21 16:11 | MHC.CLN ---
NUTRITION CONSULT FOR PATIENT REPORTING THAT CAN'T KEEP FOOD DOWN AND REQUESTING ENSURE. VISITED WITH PATIENT ON UNIT. STATED THAT HAS NOT BEEN ABLE TO KEEP FOOD DOWN X ONE WEEK. REQUESTING ENSURE AND REPORTS HUNGER. ADDING ENSURE TID. PROVIDES 1050 KCALS, 60 G PROTEIN. ADVISED THAT WHEN ABLE TO BETTER TOLERATE FOOD, SHOULD STOP ENSURE.
[2022-12-21] MEDS: hydrOXYzine HCL 50 MG TABLET 100 MG PO (20:08)
[2022-12-21] MEDS: Prazosin HCL 1 MG CAPSULE 4 MG PO (21:03)
[2022-12-21] MEDS: carBAMazepine ER 200 MG TAB.ER.12H 800 MG PO (21:04)
[2022-12-21] MEDS: traZODone HCL 100 MG TABLET 200 MG PO (21:04)
[2022-12-21] MEDS: QUEtiapine Fumarate 100 MG TABLET PO (21:05)
[2022-12-21 21:08] VITALS: BP 131/93; PULSE 82; TEMP 36.7; O2SAT 98
[2022-12-22 01:54] VITALS: PULSE 70; O2SAT 95
[2022-12-22] MEDS: Omeprazole 20 MG CAPSULE.DR PO ×2 (06:54→15:24)
[2022-12-22 08:13] VITALS: BP 137/79; PULSE 82; RESP 18; TEMP 36.4; O2SAT 96
[2022-12-22] MEDS: Cholecalciferol (Vitamin D3) 25 MCG TABLET PO (08:52)
[2022-12-22] MEDS: metFORMIN HCl ER 500 MG TAB.ER.24H 1000 MG PO (08:52)
[2022-12-22] MEDS: Loratadine 10 MG TABLET PO (08:53)
[2022-12-22] MEDS: Ondansetron ODT 4 MG TAB.RAPDIS 8 MG TRANSLINGU ×3 (08:53→17:50)
[2022-12-22] MEDS: Docusate Sodium 100 MG CAPSULE PO (08:53)
[2022-12-22] MEDS: Gabapentin 400 MG CAPSULE PO ×3 (08:54→21:09)
[2022-12-22] MEDS: Multivitamin TABLET 1 TAB PO (08:54)
[2022-12-22] MEDS: Famotidine 20 MG TABLET 40 MG PO ×2 (08:54→21:09)
[2022-12-22] MEDS: Fluticasone/Vilanterol 100/25 BLST.W.DEV 1 PUFF INHALE ×2 (08:55→21:08)
[2022-12-22] MEDS: Acetaminophen 325 MG TABLET 650 MG PO ×2 (09:22→18:22)
[2022-12-22] MEDS: carBAMazepine ER 200 MG TAB.ER.12H 800 MG PO ×2 (09:23→21:08)
[2022-12-22] MEDS: hydrOXYzine HCL 50 MG TABLET 100 MG PO (10:51)
--- NOTE | 2022-12-22 14:19 | HO.PSYCHPN ---
Subjective Subjective Date of Service: 12/22/22 Reason For Visit: psychiatric emergency Subjective Notes: Conditional Voluntary Interim History: The nursing staff reported the patient had been very anxious, attention seeking at times reports passive suicidal ideation. Yesterday physical therapy saw her and did not suggest new changes. On interview the patient reports that she had been more triggered and anxious we discussed risks and options and she agreed to increase elects slightly prazosin up to 1 mg p.o. b.i.d. and 4 mg at bedtime to target anxiety. Mental Status Exam Mental Status Exam Patient Appearance: Well Grooomed Patient Orientation: Person, Place and Situation Level of Consciousness: Awake and Appropriate Patient Behavior: Guarded and Passive Mood Description: Calm Affect Description: Constricted Patient Cognition Impaired: No Ability to Follow Directions: Good Speech Pattern: Clear Hallucinations: None Delusions: Not Present Thought Process: Distracted and Evasive Thought Content: positive for [place], positive for Perseveration and positive for Poverty of Content Judgement: Fair Diagnostics Vital Signs (24Hr): Vital Signs - 24 hr 12/21/22 21:08 12/22/22 08:13 Temperature 98.0 F 97.6 F Pulse Rate 82 82 Respiratory Rate 18 Blood Pressure 131/93 H 137/79 Pulse Oximetry 98 96 Oxygen Delivery Method Room Air Room Air BMI result Body Mass Index 42.0 Labs 12/19/22 19:02 12/21/22 07:16 Labs: Laboratory Results - last 48 hr 12/20/22 12/21/22 12/21/22 14:33 07:16 07:16 Sodium 141 Potassium 4.5 Chloride 105 Carbon Dioxide 28 Anion Gap 13 BUN 14 Creatinine 0.72 Estim Creat Clear Calc 96.7 Estimated GFR > 60 Fasting Glucose 119 H Estimat Average Glucose 108 Hemoglobin A1c % 5.4 Calcium 9.2 Total Bilirubin 0.2 AST 17 ALT 18 Alkaline Phosphatase 110 Total Protein 6.7 Albumin 3.9 Triglycerides 220 Cholesterol 182 LDL Cholesterol, Calc 107 HDL Cholesterol 31 Vitamin B12 603 Folate 15.0 TSH 2.77 Free T4 0.81 Carbamazepine 6.4 Medications Medications Current Medications Acetaminophen (Acetaminophen 325 Mg Tablet) 650 mg PO Q6H PRN PRN Reason: Headache/Pain Mild Scale (1-3) Last Admin: 12/22/22 09:22 Dose: 650 mg Albuterol/Ipratropium (Albuterol/Iprat 2.5/0.5mg 3 Ml Ampul.Neb) 3 ml INHALE Q4H PRN PRN Reason: Shortness Of Breath Last Admin: 12/20/22 21:05 Dose: 3 ml Calcium Carbonate (Calcium Carbonate 500 Mg Tablet) 1,000 mg PO BID [facility] Last Admin: 12/22/22 08:54 Dose: 1,000 mg Carbamazepine (Carbamazepine Er 200 Mg Tab.Er.12h) 800 mg PO BID [facility] Last Admin: 12/22/22 09:23 Dose: 800 mg Dicyclomine HCl (Dicyclomine Hcl 10 Mg Capsule) 10 mg PO QIDACHS PRN PRN Reason: IBS Docusate Sodium (Docusate Sodium 100 Mg Capsule) 100 mg PO DAILY [facility] Last Admin: 12/22/22 08:53 Dose: 100 mg Famotidine (Famotidine 20 Mg Tablet) 40 mg PO BID [facility] Last Admin: 12/22/22 08:54 Dose: 40 mg Fluticasone/Vilanterol (Fluticasone/Vilanterol 100/25 Blst.W.Dev) 1 puff INHALE BID [facility] Last Admin: 12/22/22 08:55 Dose: 1 puff Gabapentin (Gabapentin 400 Mg Capsule) 400 mg PO TID [facility] Last Admin: 12/22/22 08:54 Dose: 400 mg Hydroxyzine HCl (Hydroxyzine Hcl 50 Mg Tablet) 100 mg PO QID PRN PRN Reason: Anxiety Last Admin: 12/22/22 10:51 Dose: 100 mg Lactase (Lactase Tablet) 1 tab PO QID PRN PRN Reason: Lactose Intolerance Loratadine (Loratadine 10 Mg Tablet) 10 mg PO DAILY [facility] Last Admin: 12/22/22 08:53 Dose: 10 mg Magnesium Hydroxide (Milk Of Magnesia 30 Ml Oral.Susp) 30 ml PO DAILY PRN PRN Reason: Constipation Metformin HCl (Metformin Hcl Er 500 Mg Tab.Er.24h) 1,000 mg PO DAILY [facility] Last Admin: 12/22/22 08:52 Dose: 1,000 mg Multivitamins/Vitamin C (Multivitamin Tablet) 1 tab PO DAILY [facility] Last Admin: 12/22/22 08:54 Dose: 1 tab Nicotine Polacrilex (Nicotine Polacrilex 2 Mg Gum) 4 mg BUCCAL Q2H PRN PRN Reason: Nicotine Cravings Omeprazole (Omeprazole 20 Mg Capsule.Dr) 20 mg PO BID@0630,1630 [facility] Last Admin: 12/22/22 06:54 Dose: 20 mg Ondansetron HCl (Ondansetron Odt 4 Mg Tab.Rapdis) 8 mg TRANSLINGU TIDWM [facility] Last Admin: 12/22/22 12:20 Dose: 8 mg Prazosin HCl (Prazosin Hcl 1 Mg Capsule) 4 mg PO BEDTIME [facility]; Protocol Last Admin: 12/21/22 21:03 Dose: 4 mg Quetiapine Fumarate (Quetiapine Fumarate 100 Mg Tablet) 100 mg PO BEDTIME [facility] Last Admin: 12/21/22 21:05 Dose: 100 mg Tiotropium [place] (Tiotropium [place] 18 Mcg Cap.W.Dev) 1 puff INHALE RDAILY [facility] Last Admin: 12/22/22 08:55 Dose: 1 puff Trazodone HCl (Trazodone Hcl 100 Mg Tablet) 200 mg PO BEDTIME [facility] Last Admin: 12/21/22 21:04 Dose: 200 mg Trazodone HCl (Trazodone Hcl 50 Mg Tablet) 50 mg PO BEDTIME MRX1 PRN PRN Reason: Insomnia Vitamin D (Cholecalciferol (Vitamin D3) 25 Mcg Tablet) 25 mcg PO DAILY [facility] Last Admin: 12/22/22 08:52 Dose: 25 mcg Allergies Allergies Allergy/AdvReac Type Severity Reaction Status Date / Time Benzodiazepines Allergy Intermediate Irritable Verified 08/01/21 19:03 diazepam [From Valium] Allergy Intermediate Irritable Verified 08/01/21 19:02 sulfamethoxazole Allergy Intermediate Rash Verified 08/01/21 19:01 [From Bactrim] trimethoprim [From Bactrim] Allergy Intermediate Rash Verified 08/01/21 19:01 Assessment & Plan Assessment & Plan (1) Bipolar disorder: Qualifiers: Active/Remission status: currently active Current bipolar episode type: depressed Current episode severity: moderate Qualified Code(s): F31.32 - Bipolar disorder, current episode depressed, moderate Status: Acute Code(s): F31.9 - Bipolar disorder, unspecified (2) Diabetes mellitus, type 2: Status: Acute Code(s): E11.9 - Type 2 diabetes mellitus without complications (3) Sleep apnea: Status: Acute Code(s): G47.30 - Sleep apnea, unspecified (4) Suicidal ideation: Status: Acute Code(s): R45.851 - Suicidal ideations Plan increase tegretol dosing from 400 TID to 800 BID due to tegretol level of 6.4 at admission. otherwise continue home regimen. PT consult for ambulation concerns. nutrition consult for ensure request/dietary concerns. CPAP at HS. 12/22 increased Prazosin 1 mg po bid and keep 4 mg po qhs Reason for continued inpatient stay Substantial Risk for: inability to function, rapid decompensation and med/psych decompensation Time Spent With Patient Time: Total time managing care of this patient today _20___ minutes.
[2022-12-22 17:48] VITALS: BP 131/94; PULSE 95; RESP 18; TEMP 36.1; O2SAT 95
[2022-12-22] MEDS: Prazosin HCL 1 MG CAPSULE PO (17:50)
[2022-12-22 21:00] VITALS: BP 140/92; PULSE 86; TEMP 36.6; O2SAT 99
[2022-12-22] MEDS: Lidocaine 5 % Ointment 35 GM 1 APPL TOPICAL (21:09)
[2022-12-22] MEDS: traZODone HCL 100 MG TABLET 200 MG PO (21:09)
[2022-12-22] MEDS: Prazosin HCL 1 MG CAPSULE 4 MG PO (21:09)
[2022-12-22] MEDS: QUEtiapine Fumarate 100 MG TABLET PO (21:09)
[2022-12-23] MEDS: Omeprazole 20 MG CAPSULE.DR PO ×2 (06:58→16:47)
[2022-12-23 09:00] VITALS: BP 122/82; PULSE 87; RESP 16; TEMP 36.7; O2SAT 100
[2022-12-23] MEDS: Fluticasone/Vilanterol 100/25 BLST.W.DEV 1 PUFF INHALE ×2 (09:03→22:25)
[2022-12-23] MEDS: metFORMIN HCl ER 500 MG TAB.ER.24H 1000 MG PO (09:05)
[2022-12-23] MEDS: Ondansetron ODT 4 MG TAB.RAPDIS 8 MG TRANSLINGU ×3 (09:05→16:48)
[2022-12-23] MEDS: Multivitamin TABLET 1 TAB PO (09:05)
[2022-12-23] MEDS: Gabapentin 400 MG CAPSULE PO ×3 (09:06→22:20)
[2022-12-23] MEDS: Prazosin HCL 1 MG CAPSULE PO ×2 (09:06→16:47)
[2022-12-23] MEDS: carBAMazepine ER 200 MG TAB.ER.12H 800 MG PO ×2 (09:06→22:19)
[2022-12-23] MEDS: Cholecalciferol (Vitamin D3) 25 MCG TABLET PO (09:07)
[2022-12-23] MEDS: Loratadine 10 MG TABLET PO (09:07)
[2022-12-23] MEDS: Docusate Sodium 100 MG CAPSULE PO (09:07)
[2022-12-23] MEDS: Famotidine 20 MG TABLET 40 MG PO ×2 (09:07→22:19)
[2022-12-23 09:09] LABS: Glucose, Whole Blood 111 mg/dL (60-115)
--- NOTE | 2022-12-23 11:28 | HO.PSYCHPN ---
Subjective Subjective Date of Service: 12/23/22 Reason For Visit: psychiatric emergency Subjective Notes: Conditional Voluntary Interim History: The nursing staff reported the patient denies active suicidal ideation, she complains of back pain and she has been pleasant and patient in the morning. She denies auditory hallucinations. On interview the patient reports some anxiety and she agreed to keep on the same dose of prazosin. Mental Status Exam Mental Status Exam Patient Appearance: Appropriate Patient Orientation: Person and Situation Level of Consciousness: Awake and Appropriate Patient Behavior: Guarded and Passive Mood Description: Withdrawn, Nervous and Apprehensive Affect Description: Constricted Ability to Follow Directions: Good Speech Pattern: Clear Hallucinations: None Delusions: Not Present Thought Process: Linear Thought Content: positive for Circumstantial Judgement: Fair Diagnostics Vital Signs (24Hr): Vital Signs - 24 hr 12/22/22 17:48 12/22/22 21:00 Temperature 97.0 F 97.8 F Pulse Rate 95 86 Respiratory Rate 18 Blood Pressure 131/94 H 140/92 H Pulse Oximetry 95 99 Oxygen Delivery Method Room Air Room Air BMI result Body Mass Index 42.0 Labs 12/19/22 19:02 12/21/22 07:16 Labs: Laboratory Results - last 48 hr 12/23/22 09:05 POC Glucose 111 Medications Medications Current Medications Acetaminophen (Acetaminophen 325 Mg Tablet) 650 mg PO Q6H PRN PRN Reason: Headache/Pain Mild Scale (1-3) Last Admin: 12/22/22 18:22 Dose: 650 mg Albuterol/Ipratropium (Albuterol/Iprat 2.5/0.5mg 3 Ml Ampul.Neb) 3 ml INHALE Q4H PRN PRN Reason: Shortness Of Breath Last Admin: 12/20/22 21:05 Dose: 3 ml Calcium Carbonate (Calcium Carbonate 500 Mg Tablet) 1,000 mg PO BID [facility] Last Admin: 12/23/22 09:04 Dose: 1,000 mg Carbamazepine (Carbamazepine Er 200 Mg Tab.Er.12h) 800 mg PO BID [facility] Last Admin: 12/23/22 09:06 Dose: 800 mg Dicyclomine HCl (Dicyclomine Hcl 10 Mg Capsule) 10 mg PO QIDACHS PRN PRN Reason: IBS Docusate Sodium (Docusate Sodium 100 Mg Capsule) 100 mg PO DAILY [facility] Last Admin: 12/23/22 09:07 Dose: 100 mg Famotidine (Famotidine 20 Mg Tablet) 40 mg PO BID [facility] Last Admin: 12/23/22 09:07 Dose: 40 mg Fluticasone/Vilanterol (Fluticasone/Vilanterol 100/25 Blst.W.Dev) 1 puff INHALE BID [facility] Last Admin: 12/23/22 09:03 Dose: 1 puff Gabapentin (Gabapentin 400 Mg Capsule) 400 mg PO TID [facility] Last Admin: 12/23/22 09:06 Dose: 400 mg Hydroxyzine HCl (Hydroxyzine Hcl 50 Mg Tablet) 100 mg PO QID PRN PRN Reason: Anxiety Last Admin: 12/22/22 10:51 Dose: 100 mg Lactase (Lactase Tablet) 1 tab PO QID PRN PRN Reason: Lactose Intolerance Lidocaine (Lidocaine 5 % Ointment 35 Gm) 1 appl TOPICAL DAILY PRN; Protocol PRN Reason: back pain Last Admin: 12/22/22 21:09 Dose: 1 appl Loratadine (Loratadine 10 Mg Tablet) 10 mg PO DAILY [facility] Last Admin: 12/23/22 09:07 Dose: 10 mg Magnesium Hydroxide (Milk Of Magnesia 30 Ml Oral.Susp) 30 ml PO DAILY PRN PRN Reason: Constipation Metformin HCl (Metformin Hcl Er 500 Mg Tab.Er.24h) 1,000 mg PO DAILY [facility] Last Admin: 12/23/22 09:05 Dose: 1,000 mg Multivitamins/Vitamin C (Multivitamin Tablet) 1 tab PO DAILY [facility] Last Admin: 12/23/22 09:05 Dose: 1 tab Nicotine Polacrilex (Nicotine Polacrilex 2 Mg Gum) 4 mg BUCCAL Q2H PRN PRN Reason: Nicotine Cravings Omeprazole (Omeprazole 20 Mg Capsule.Dr) 20 mg PO BID@0630,1630 [facility] Last Admin: 12/23/22 06:58 Dose: 20 mg Ondansetron HCl (Ondansetron Odt 4 Mg Tab.Rapdis) 8 mg TRANSLINGU TIDWM [facility] Last Admin: 12/23/22 09:05 Dose: 8 mg Prazosin HCl (Prazosin Hcl 1 Mg Capsule) 4 mg PO BEDTIME [facility]; Protocol Last Admin: 12/22/22 21:09 Dose: 4 mg Prazosin HCl (Prazosin Hcl 1 Mg Capsule) 1 mg PO BID@0800,1700 [facility]; Protocol Last Admin: 12/23/22 09:06 Dose: 1 mg Quetiapine Fumarate (Quetiapine Fumarate 100 Mg Tablet) 100 mg PO BEDTIME [facility] Last Admin: 12/22/22 21:09 Dose: 100 mg Tiotropium [place] (Tiotropium [place] 18 Mcg Cap.W.Dev) 1 puff INHALE RDAILY [facility] Last Admin: 12/23/22 09:02 Dose: 1 puff Trazodone HCl (Trazodone Hcl 100 Mg Tablet) 200 mg PO BEDTIME [facility] Last Admin: 12/22/22 21:09 Dose: 200 mg Trazodone HCl (Trazodone Hcl 50 Mg Tablet) 50 mg PO BEDTIME MRX1 PRN PRN Reason: Insomnia Vitamin D (Cholecalciferol (Vitamin D3) 25 Mcg Tablet) 25 mcg PO DAILY [facility] Last Admin: 12/23/22 09:07 Dose: 25 mcg Allergies Allergies Allergy/AdvReac Type Severity Reaction Status Date / Time Benzodiazepines Allergy Intermediate Irritable Verified 08/01/21 19:03 diazepam [From Valium] Allergy Intermediate Irritable Verified 08/01/21 19:02 sulfamethoxazole Allergy Intermediate Rash Verified 08/01/21 19:01 [From Bactrim] trimethoprim [From Bactrim] Allergy Intermediate Rash Verified 08/01/21 19:01 Assessment & Plan Assessment & Plan (1) Bipolar disorder: Qualifiers: Active/Remission status: currently active Current bipolar episode type: depressed Current episode severity: moderate Qualified Code(s): F31.32 - Bipolar disorder, current episode depressed, moderate Status: Acute Code(s): F31.9 - Bipolar disorder, unspecified (2) Diabetes mellitus, type 2: Status: Acute Code(s): E11.9 - Type 2 diabetes mellitus without complications (3) Sleep apnea: Status: Acute Code(s): G47.30 - Sleep apnea, unspecified (4) Suicidal ideation: Status: Acute Code(s): R45.851 - Suicidal ideations Plan increase tegretol dosing from 400 TID to 800 BID due to tegretol level of 6.4 at admission. otherwise continue home regimen. PT consult for ambulation concerns. nutrition consult for ensure request/dietary concerns. CPAP at HS. 12/22 increased Prazosin 1 mg po bid and keep 4 mg po qhs 6/4: keep same treatment Reason for continued inpatient stay Substantial Risk for: inability to function, rapid decompensation and med/psych decompensation Time Spent With Patient Time: Total time managing care of this patient today ___20_ minutes.
[2022-12-23] MEDS: Albuterol/Iprat 2.5/0.5MG 3 ML AMPUL.NEB INHALE (11:47)
[2022-12-23 11:50] VITALS: PULSE 104; RESP 18; O2SAT 98
[2022-12-23] MEDS: Lidocaine 5 % Ointment 35 GM 1 APPL TOPICAL (15:38)
[2022-12-23 16:53] VITALS: BP 131/82; PULSE 97; RESP 16
[2022-12-23 22:20] VITALS: BP 126/71; PULSE 75; RESP 18; O2SAT 99
[2022-12-23] MEDS: QUEtiapine Fumarate 100 MG TABLET PO (22:20)
[2022-12-23] MEDS: Prazosin HCL 1 MG CAPSULE 4 MG PO (22:20)
[2022-12-23] MEDS: traZODone HCL 100 MG TABLET 200 MG PO (22:20)
[2022-12-23] MEDS: Acetaminophen 325 MG TABLET 650 MG PO (22:21)
[2022-12-23] MEDS: hydrOXYzine HCL 50 MG TABLET 100 MG PO (22:21)
[2022-12-24 00:35] VITALS: PULSE 82; O2SAT 95
[2022-12-24 06:00] VITALS: BP 112/60; PULSE 80; RESP 16; TEMP 36.6; O2SAT 94
[2022-12-24] MEDS: Omeprazole 20 MG CAPSULE.DR PO ×2 (06:46→16:36)
[2022-12-24] MEDS: Fluticasone/Vilanterol 100/25 BLST.W.DEV 1 PUFF INHALE ×2 (08:30→22:35)
[2022-12-24] MEDS: carBAMazepine ER 200 MG TAB.ER.12H 800 MG PO ×2 (08:32→22:32)
[2022-12-24] MEDS: Famotidine 20 MG TABLET 40 MG PO ×2 (08:33→22:33)
[2022-12-24] MEDS: Docusate Sodium 100 MG CAPSULE PO (08:33)
[2022-12-24] MEDS: metFORMIN HCl ER 500 MG TAB.ER.24H 1000 MG PO (08:34)
[2022-12-24] MEDS: Ondansetron ODT 4 MG TAB.RAPDIS 8 MG TRANSLINGU ×2 (08:34→16:36)
[2022-12-24] MEDS: Gabapentin 400 MG CAPSULE PO ×3 (08:35→22:33)
[2022-12-24] MEDS: Cholecalciferol (Vitamin D3) 25 MCG TABLET PO (08:35)
[2022-12-24] MEDS: Prazosin HCL 1 MG CAPSULE PO ×2 (08:35→16:36)
[2022-12-24] MEDS: Multivitamin TABLET 1 TAB PO (08:35)
[2022-12-24] MEDS: Loratadine 10 MG TABLET PO (09:11)
[2022-12-24] MEDS: hydrOXYzine HCL 50 MG TABLET 100 MG PO ×2 (13:21→22:32)
--- NOTE | 2022-12-24 14:08 | P.PNPSI_ITS ---
Subjective Subjective Date of Service: 12/24/22 Reason For Visit: psychiatric emergency Subjective Notes: Conditional Voluntary Interim History: Pt reports feeling particularly more manicky, panicky today. She reports she had conversation with parents, especially with mother which did not help as pt reports mother was judgmental. Pt reports she is trying to cope with feeling of anxiety by isolating to her isolating to her room and using PRN medications. Pt reports sleeping well. No SI/HI. No VH/AH. Ambulating with walker. Per nursing, pt is somatically preoccupied. Review of Systems Review of Systems Constitutional : No Weight loss, No Fever, No Chills, No Night Sweats, No Fati jesse, No Malaise ENT/Mouth : No Hearing loss, No Ear Pain, No Nasal Congestion, No Sinus Pain, No Hoarseness, No sore throat, No Rhinorrhea, No Swallowing Difficulty Eyes: No Eye Pain, No Swelling, No Redness, No Foreign Body, No Discharge, No Vision Changes Cardiovascular : No Chest Pain, No SOB, No Dyspnea on Exertion, No Orthopnea, No Edema, No Palpitations Respiratory : No Cough, No Sputum, No Wheezing, No Smoke Exposure, No Dyspnea Gastrointestinal : No Nausea, No Vomiting, No Diarrhea, No Constipation, No abdominal Pain, No Hematochezia, No Melena Genitourinary : no irregular bleeding, No Dysuria, No Urinary Frequency, No Hematuria, No Urinary Incontinence, No Urgency, No Flank Pain, No Urinary Flow Changes, No Hesitancy Musculoskeletal : No joint pain, No Myalgias, No Joint Swelling Skin : No Skin Lesions, No rash Neuro : No Weakness, No Numbness, No Paresthesias, No Loss of Consciousness, No Dizziness, No Headache Psych : Feeling anxious, SI, no HI Heme/Lymph: No Bruising, No Bleeding,No Lymphadenopathy Endocrine : No Polyuria, No Polydipsia, No Temperature Intolerance Diagnostics Vital Signs (24Hr): Vital Signs - 24 hr 12/23/22 16:53 12/23/22 22:20 12/24/22 06:00 Temperature 97.8 F Pulse Rate 97 75 80 Respiratory Rate 16 18 16 Blood Pressure 131/82 126/71 112/60 Pulse Oximetry 99 94 Oxygen Delivery Method Room Air Room Air BMI result Body Mass Index 42.0 Labs 12/19/22 19:02 12/21/22 07:16 Labs: Laboratory Results - last 48 hr 12/23/22 09:05 POC Glucose 111 Medications Medications Current Medications Acetaminophen (Acetaminophen 325 Mg Tablet) 650 mg PO Q6H PRN PRN Reason: Headache/Pain Mild Scale (1-3) Last Admin: 12/23/22 22:21 Dose: 650 mg Albuterol/Ipratropium (Albuterol/Iprat 2.5/0.5mg 3 Ml Ampul.Neb) 3 ml INHALE Q4H PRN PRN Reason: Shortness Of Breath Last Admin: 12/23/22 11:47 Dose: 3 ml Calcium Carbonate (Calcium Carbonate 500 Mg Tablet) 1,000 mg PO BID [facility] Last Admin: 12/24/22 08:33 Dose: 1,000 mg Carbamazepine (Carbamazepine Er 200 Mg Tab.Er.12h) 800 mg PO BID [facility] Last Admin: 12/24/22 08:32 Dose: 800 mg Dicyclomine HCl (Dicyclomine Hcl 10 Mg Capsule) 10 mg PO QIDACHS PRN PRN Reason: IBS Docusate Sodium (Docusate Sodium 100 Mg Capsule) 100 mg PO DAILY [facility] Last Admin: 12/24/22 08:33 Dose: 100 mg Famotidine (Famotidine 20 Mg Tablet) 40 mg PO BID [facility] Last Admin: 12/24/22 08:33 Dose: 40 mg Fluticasone/Vilanterol (Fluticasone/Vilanterol 100/25 Blst.W.Dev) 1 puff INHALE BID [facility] Last Admin: 12/24/22 08:30 Dose: 1 puff Gabapentin (Gabapentin 400 Mg Capsule) 400 mg PO TID [facility] Last Admin: 12/24/22 08:35 Dose: 400 mg Hydroxyzine HCl (Hydroxyzine Hcl 50 Mg Tablet) 100 mg PO QID PRN PRN Reason: Anxiety Last Admin: 12/24/22 13:21 Dose: 100 mg Lactase (Lactase Tablet) 1 tab PO QID PRN PRN Reason: Lactose Intolerance Lidocaine (Lidocaine 5 % Ointment 35 Gm) 1 appl TOPICAL DAILY PRN; Protocol PRN Reason: back pain Last Admin: 12/23/22 15:38 Dose: 1 appl Loratadine (Loratadine 10 Mg Tablet) 10 mg PO DAILY [facility] Last Admin: 12/24/22 09:11 Dose: 10 mg Magnesium Hydroxide (Milk Of Magnesia 30 Ml Oral.Susp) 30 ml PO DAILY PRN PRN Reason: Constipation Metformin HCl (Metformin Hcl Er 500 Mg Tab.Er.24h) 1,000 mg PO DAILY [facility] Last Admin: 12/24/22 08:34 Dose: 1,000 mg Multivitamins/Vitamin C (Multivitamin Tablet) 1 tab PO DAILY [facility] Last Admin: 12/24/22 08:35 Dose: 1 tab Nicotine Polacrilex (Nicotine Polacrilex 2 Mg Gum) 4 mg BUCCAL Q2H PRN PRN Reason: Nicotine Cravings Omeprazole (Omeprazole 20 Mg Capsule.Dr) 20 mg PO BID@0630,1630 [facility] Last Admin: 12/24/22 06:46 Dose: 20 mg Ondansetron HCl (Ondansetron Odt 4 Mg Tab.Rapdis) 8 mg TRANSLINGU TIDWM [facility] Last Admin: 12/24/22 12:13 Dose: Not Given Prazosin HCl (Prazosin Hcl 1 Mg Capsule) 4 mg PO BEDTIME [facility]; Protocol Last Admin: 12/23/22 22:20 Dose: 4 mg Prazosin HCl (Prazosin Hcl 1 Mg Capsule) 1 mg PO BID@0800,1700 [facility]; Protocol Last Admin: 12/24/22 08:35 Dose: 1 mg Quetiapine Fumarate (Quetiapine Fumarate 100 Mg Tablet) 100 mg PO BEDTIME [facility] Last Admin: 12/23/22 22:20 Dose: 100 mg Tiotropium [place] (Tiotropium [place] 18 Mcg Cap.W.Dev) 1 puff INHALE RDAILY [facility] Last Admin: 12/24/22 08:30 Dose: 1 puff Trazodone HCl (Trazodone Hcl 100 Mg Tablet) 200 mg PO BEDTIME [facility] Last Admin: 12/23/22 22:20 Dose: 200 mg Trazodone HCl (Trazodone Hcl 50 Mg Tablet) 50 mg PO BEDTIME MRX1 PRN PRN Reason: Insomnia Vitamin D (Cholecalciferol (Vitamin D3) 25 Mcg Tablet) 25 mcg PO DAILY [facility] Last Admin: 12/24/22 08:35 Dose: 25 mcg Allergies Allergies Allergy/AdvReac Type Severity Reaction Status Date / Time Benzodiazepines Allergy Intermediate Irritable Verified 08/01/21 19:03 diazepam [From Valium] Allergy Intermediate Irritable Verified 08/01/21 19:02 sulfamethoxazole Allergy Intermediate Rash Verified 08/01/21 19:01 [From Bactrim] trimethoprim [From Bactrim] Allergy Intermediate Rash Verified 08/01/21 19:01 Assessment & Plan Assessment & Plan (1) Bipolar disorder: Qualifiers: Active/Remission status: currently active Current bipolar episode type: depressed Current episode severity: moderate Qualified Code(s): F31.32 - Bipolar disorder, current episode depressed, moderate Status: Acute Code(s): F31.9 - Bipolar disorder, unspecified (2) Diabetes mellitus, type 2: Status: Acute Code(s): E11.9 - Type 2 diabetes mellitus without complications (3) Sleep apnea: Status: Acute Code(s): G47.30 - Sleep apnea, unspecified (4) Suicidal ideation: Status: Acute Code(s): R45.851 - Suicidal ideations Plan increase tegretol dosing from 400 TID to 800 BID due to tegretol level of 6.4 at admission. otherwise continue home regimen. PT consult for ambulation concerns. nutrition consult for ensure request/dietary concerns. CPAP at HS. 12/22 increased Prazosin 1 mg po bid and keep 4 mg po qhs 12/23: keep same treatment 12/24 continue current medications. pt request to check tegretol tomorrow (will order more to help with anxiety than fact that dose was increase less than 7 days ago and is not at steady blood level). Reason for continued inpatient stay Substantial Risk for: inability to function Time Spent With Patient Time: Total time managing care of this patient today ____ minutes.
[2022-12-24 16:31] VITALS: BP 137/77; PULSE 83
[2022-12-24] MEDS: Lactase TABLET 1 TAB PO (18:33)
[2022-12-24 22:20] VITALS: BP 131/68; PULSE 87; RESP 18; TEMP 36.6; O2SAT 100
[2022-12-24] MEDS: QUEtiapine Fumarate 100 MG TABLET PO (22:31)
[2022-12-24] MEDS: Prazosin HCL 1 MG CAPSULE 4 MG PO (22:31)
[2022-12-24] MEDS: traZODone HCL 100 MG TABLET 200 MG PO (22:32)
[2022-12-24] MEDS: Simethicone 80 MG TAB.CHEW PO (22:37)
[2022-12-25] MEDS: Omeprazole 20 MG CAPSULE.DR PO ×2 (06:45→17:27)
[2022-12-25] MEDS: Lactase TABLET 1 TAB PO ×3 (08:34→17:31)
[2022-12-25 09:00] VITALS: BP 148/89; PULSE 88; RESP 20; TEMP 36.6; O2SAT 95
[2022-12-25] MEDS: Multivitamin TABLET 1 TAB PO (09:08)
[2022-12-25] MEDS: Cholecalciferol (Vitamin D3) 25 MCG TABLET PO (09:08)
[2022-12-25] MEDS: Docusate Sodium 100 MG CAPSULE PO (09:08)
[2022-12-25] MEDS: metFORMIN HCl ER 500 MG TAB.ER.24H 1000 MG PO (09:08)
[2022-12-25] MEDS: Prazosin HCL 1 MG CAPSULE PO ×2 (09:08→17:28)
[2022-12-25] MEDS: Loratadine 10 MG TABLET PO (09:08)
[2022-12-25] MEDS: Famotidine 20 MG TABLET 40 MG PO ×2 (09:08→21:17)
[2022-12-25] MEDS: Ondansetron ODT 4 MG TAB.RAPDIS 8 MG TRANSLINGU ×3 (09:09→18:52)
[2022-12-25] MEDS: carBAMazepine ER 200 MG TAB.ER.12H 800 MG PO ×2 (09:09→21:17)
[2022-12-25] MEDS: Gabapentin 400 MG CAPSULE PO ×3 (09:09→21:18)
[2022-12-25] MEDS: Acetaminophen 325 MG TABLET 650 MG PO ×2 (09:09→21:37)
[2022-12-25] MEDS: Fluticasone/Vilanterol 100/25 BLST.W.DEV 1 PUFF INHALE ×2 (09:10→21:21)
[2022-12-25 09:27] LABS: Carbamazepine Tegretol 10.7 mcg/mL (5.0-12.0)
[2022-12-25] MEDS: hydrOXYzine HCL 50 MG TABLET 100 MG PO ×2 (14:58→21:19)
[2022-12-25 17:35] VITALS: BP 134/83; PULSE 88
[2022-12-25] MEDS: traZODone HCL 100 MG TABLET 200 MG PO (21:18)
[2022-12-25] MEDS: QUEtiapine Fumarate 100 MG TABLET PO (21:19)
[2022-12-25] MEDS: Prazosin HCL 1 MG CAPSULE 4 MG PO (21:19)
[2022-12-25 21:20] VITALS: BP 132/77; PULSE 89; TEMP 36.6; O2SAT 95
[2022-12-25] MEDS: Lidocaine 5 % Ointment 35 GM 1 APPL TOPICAL (21:21)
--- NOTE | 2022-12-25 22:24 | HO.PSYCHPN ---
Subjective Subjective Date of Service: 12/25/22 Reason For Visit: psychiatric emergency Interim History: calm, cooperative, pleased with her tegretol level, asking for discharge. agreeable to leave late week. denies depression, says her anxiety is low. per staff, says she is exhausted due to robert. 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 lots of somatic complaints. denied SI/HI. safe. no BM x 2 days, declined MOM. Mental Status Exam Mental Status Exam Narrative: appropriately dressed and groomed. cooperative. no PMA/PMR. speech nml rate, incr amount, nml loudness, nml tone, decr latency. thoughts linear and logical. affect flexible and full range, normo-intense, non-labile, consistent with content of speech. mood - no depression, low anxiety. no SI/SIBI/HI/AVH expressed. Diagnostics Vital Signs (24Hr): Vital Signs - 24 hr 12/25/22 09:00 12/25/22 17:35 12/25/22 21:20 Temperature 97.9 F 97.9 F Pulse Rate 88 88 89 Respiratory Rate 20 Blood Pressure 148/89 H 134/83 132/77 Pulse Oximetry 95 95 Oxygen Delivery Method Room Air Room Air BMI result Body Mass Index 42.0 Labs 12/19/22 19:02 12/21/22 07:16 Labs: Laboratory Results - last 48 hr 12/25/22 08:42 Carbamazepine 10.7 Medications Medications Current Medications Acetaminophen (Acetaminophen 325 Mg Tablet) 650 mg PO Q6H PRN PRN Reason: Headache/Pain Mild Scale (1-3) Last Admin: 12/25/22 21:37 Dose: 650 mg Albuterol/Ipratropium (Albuterol/Iprat 2.5/0.5mg 3 Ml Ampul.Neb) 3 ml INHALE Q4H PRN PRN Reason: Shortness Of Breath Last Admin: 12/23/22 11:47 Dose: 3 ml Calcium Carbonate (Calcium Carbonate 500 Mg Tablet) 1,000 mg PO BID [facility] Last Admin: 12/25/22 21:17 Dose: 1,000 mg Carbamazepine (Carbamazepine Er 200 Mg Tab.Er.12h) 800 mg PO BID [facility] Last Admin: 12/25/22 21:17 Dose: 800 mg Dicyclomine HCl (Dicyclomine Hcl 10 Mg Capsule) 10 mg PO QIDACHS PRN PRN Reason: IBS Docusate Sodium (Docusate Sodium 100 Mg Capsule) 100 mg PO DAILY [facility] Last Admin: 12/25/22 09:08 Dose: 100 mg Famotidine (Famotidine 20 Mg Tablet) 40 mg PO BID [facility] Last Admin: 12/25/22 21:17 Dose: 40 mg Fluticasone/Vilanterol (Fluticasone/Vilanterol 100/25 Blst.W.Dev) 1 puff INHALE BID [facility] Last Admin: 12/25/22 21:21 Dose: 1 puff Gabapentin (Gabapentin 400 Mg Capsule) 400 mg PO TID [facility] Last Admin: 12/25/22 21:18 Dose: 400 mg Hydroxyzine HCl (Hydroxyzine Hcl 50 Mg Tablet) 100 mg PO QID PRN PRN Reason: Anxiety Last Admin: 12/25/22 21:19 Dose: 100 mg Lactase (Lactase Tablet) 1 tab PO QID PRN PRN Reason: Lactose Intolerance Last Admin: 12/25/22 17:31 Dose: 1 tab Lidocaine (Lidocaine 5 % Ointment 35 Gm) 1 appl TOPICAL DAILY PRN; Protocol PRN Reason: back pain Last Admin: 12/25/22 21:21 Dose: 1 appl Loratadine (Loratadine 10 Mg Tablet) 10 mg PO DAILY [facility] Last Admin: 12/25/22 09:08 Dose: 10 mg Magnesium Hydroxide (Milk Of Magnesia 30 Ml Oral.Susp) 30 ml PO DAILY PRN PRN Reason: Constipation Metformin HCl (Metformin Hcl Er 500 Mg Tab.Er.24h) 1,000 mg PO DAILY [facility] Last Admin: 12/25/22 09:08 Dose: 1,000 mg Multivitamins/Vitamin C (Multivitamin Tablet) 1 tab PO DAILY [facility] Last Admin: 12/25/22 09:08 Dose: 1 tab Nicotine Polacrilex (Nicotine Polacrilex 2 Mg Gum) 4 mg BUCCAL Q2H PRN PRN Reason: Nicotine Cravings Omeprazole (Omeprazole 20 Mg Capsule.Dr) 20 mg PO BID@0630,1630 [facility] Last Admin: 12/25/22 17:27 Dose: 20 mg Ondansetron HCl (Ondansetron Odt 4 Mg Tab.Rapdis) 8 mg TRANSLINGU TIDWM [facility] Last Admin: 12/25/22 18:52 Dose: 8 mg Prazosin HCl (Prazosin Hcl 1 Mg Capsule) 4 mg PO BEDTIME [facility]; Protocol Last Admin: 12/25/22 21:19 Dose: 4 mg Prazosin HCl (Prazosin Hcl 1 Mg Capsule) 1 mg PO BID@0800,1700 [facility]; Protocol Last Admin: 12/25/22 17:28 Dose: 1 mg Quetiapine Fumarate (Quetiapine Fumarate 100 Mg Tablet) 100 mg PO BEDTIME [facility] Last Admin: 12/25/22 21:19 Dose: 100 mg Simethicone (Simethicone 80 Mg Tab.Chew) 80 mg PO QIDWMHS PRN PRN Reason: flatulence Last Admin: 12/24/22 22:37 Dose: 80 mg Tiotropium [place] (Tiotropium [place] 18 Mcg Cap.W.Dev) 1 puff INHALE RDAILY [facility] Last Admin: 12/25/22 09:10 Dose: 1 puff Trazodone HCl (Trazodone Hcl 100 Mg Tablet) 200 mg PO BEDTIME [facility] Last Admin: 12/25/22 21:18 Dose: 200 mg Trazodone HCl (Trazodone Hcl 50 Mg Tablet) 50 mg PO BEDTIME MRX1 PRN PRN Reason: Insomnia Vitamin D (Cholecalciferol (Vitamin D3) 25 Mcg Tablet) 25 mcg PO DAILY [facility] Last Admin: 12/25/22 09:08 Dose: 25 mcg Allergies Allergies Allergy/AdvReac Type Severity Reaction Status Date / Time sulfamethoxazole Allergy Intermediate Rash Verified 08/01/21 19:01 [From Bactrim] trimethoprim [From Bactrim] Allergy Intermediate Rash Verified 08/01/21 19:01 Benzodiazepines AdvReac Intermediate Irritable Verified 12/25/22 08:36 diazepam [From Valium] AdvReac Intermediate Irritable Verified 12/25/22 08:36 Assessment & Plan Assessment & Plan (1) Bipolar disorder: Qualifiers: Active/Remission status: currently active Current bipolar episode type: depressed Current episode severity: moderate Qualified Code(s): F31.32 - Bipolar disorder, current episode depressed, moderate Status: Acute Code(s): F31.9 - Bipolar disorder, unspecified (2) Diabetes mellitus, type 2: Status: Acute Code(s): E11.9 - Type 2 diabetes mellitus without complications (3) Sleep apnea: Status: Acute Code(s): G47.30 - Sleep apnea, unspecified (4) Suicidal ideation: Status: Acute Code(s): R45.851 - Suicidal ideations Plan 12/21: increase tegretol dosing from 400 TID to 800 BID due to tegretol level of 6.4 at admission. otherwise continue home regimen. PT consult for ambulation concerns. nutrition consult for ensure request/dietary concerns. CPAP at HS. 12/22 increased Prazosin 1 mg po bid and keep 4 mg po qhs 12/23: keep same treatment 12/24 continue current medications. pt request to check tegretol tomorrow (will order more to help with anxiety than fact that dose was increase less than 7 days ago and is not at steady blood level). 12/25: tegretol level 10.7, which is pleasing to pt. feeling well, asking for DC later this week. Reason for continued inpatient stay Substantial Risk for: rapid decompensation Time Spent With Patient Time: Total time managing care of this patient today __25__ minutes.
[2022-12-25 23:46] VITALS: PULSE 88; O2SAT 96
[2022-12-26] MEDS: Omeprazole 20 MG CAPSULE.DR PO ×2 (06:46→18:04)
[2022-12-26] MEDS: Fluticasone/Vilanterol 100/25 BLST.W.DEV 1 PUFF INHALE ×2 (08:34→21:28)
[2022-12-26] MEDS: metFORMIN HCl ER 500 MG TAB.ER.24H 1000 MG PO (08:35)
[2022-12-26] MEDS: Loratadine 10 MG TABLET PO (08:35)
[2022-12-26] MEDS: Prazosin HCL 1 MG CAPSULE PO ×2 (08:35→18:05)
[2022-12-26] MEDS: carBAMazepine ER 200 MG TAB.ER.12H 800 MG PO ×2 (08:36→21:29)
[2022-12-26] MEDS: Gabapentin 400 MG CAPSULE PO ×3 (08:36→21:29)
[2022-12-26] MEDS: Lactase TABLET 1 TAB PO ×2 (08:37→12:26)
[2022-12-26] MEDS: Docusate Sodium 100 MG CAPSULE PO (08:38)
[2022-12-26] MEDS: Famotidine 20 MG TABLET 40 MG PO ×2 (08:38→21:30)
[2022-12-26] MEDS: Multivitamin TABLET 1 TAB PO (08:39)
[2022-12-26] MEDS: Cholecalciferol (Vitamin D3) 25 MCG TABLET PO (08:39)
[2022-12-26 09:00] VITALS: BP 132/79; PULSE 87; RESP 18; TEMP 36.6; O2SAT 97
[2022-12-26] MEDS: Ondansetron ODT 4 MG TAB.RAPDIS 8 MG TRANSLINGU ×3 (10:15→18:05)
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
[2022-12-26] MEDS: hydrOXYzine HCL 50 MG TABLET 100 MG PO ×2 (13:35→21:29)
[2022-12-26] MEDS: Albuterol/Iprat 2.5/0.5MG 3 ML AMPUL.NEB INHALE ×2 (17:07→22:47)
[2022-12-26 17:08] VITALS: RESP 18; O2SAT 97
[2022-12-26] MEDS: Lidocaine 5 % Ointment 35 GM 1 APPL TOPICAL (21:28)
[2022-12-26] MEDS: Prazosin HCL 1 MG CAPSULE 4 MG PO (21:28)
[2022-12-26] MEDS: traZODone HCL 100 MG TABLET 200 MG PO (21:30)
[2022-12-26] MEDS: QUEtiapine Fumarate 100 MG TABLET PO (21:30)
[2022-12-26 21:34] VITALS: BP 128/83; PULSE 91; TEMP 36.6; O2SAT 97
[2022-12-26 22:49] VITALS: PULSE 79; RESP 16; O2SAT 98
[2022-12-26 22:50] VITALS: PULSE 79; O2SAT 98
[2022-12-27 08:00] VITALS: BP 135/76; PULSE 83; RESP 18; TEMP 36.6; O2SAT 97
[2022-12-27] MEDS: Fluticasone/Vilanterol 100/25 BLST.W.DEV 1 PUFF INHALE (08:03)
[2022-12-27] MEDS: carBAMazepine ER 200 MG TAB.ER.12H 800 MG PO (08:05)
[2022-12-27] MEDS: Multivitamin TABLET 1 TAB PO (08:06)
[2022-12-27] MEDS: Prazosin HCL 1 MG CAPSULE PO (08:06)
[2022-12-27] MEDS: Docusate Sodium 100 MG CAPSULE PO (08:06)
[2022-12-27] MEDS: Gabapentin 400 MG CAPSULE PO (08:06)
[2022-12-27] MEDS: Cholecalciferol (Vitamin D3) 25 MCG TABLET PO (08:07)
[2022-12-27] MEDS: metFORMIN HCl ER 500 MG TAB.ER.24H 1000 MG PO (08:07)
[2022-12-27] MEDS: Omeprazole 20 MG CAPSULE.DR PO (08:07)
[2022-12-27] MEDS: Loratadine 10 MG TABLET PO (08:07)
[2022-12-27] MEDS: Famotidine 20 MG TABLET 40 MG PO (08:08)
[2022-12-27] MEDS: Lactase TABLET 1 TAB PO (08:08)
[2022-12-27] MEDS: Ondansetron ODT 4 MG TAB.RAPDIS 8 MG TRANSLINGU (10:11)
== END 2022-12-27 12:45 | disposition home or self-care (01) | DRG 885 ==
LOC: HO.ED 12-20 06:56 → HO.PADLT16 12-20 13:19
PROVIDERS: Emergency Medicine; Social Worker; Admitting Provider Psychiatry & Neurology Psychiatry; Emergency Provider Emergency Medicine Emergency Medical Services; PCP Physician Assistant; Visit Provider Psychiatry & Neurology Psychiatry
DX: F31.32 Bipolar disorder, current episode depressed, moderate (principal); R45.851 Suicidal ideations; E11.9 Type 2 diabetes mellitus without complications; G47.30 Sleep apnea, unspecified; J45.909 Unspecified asthma, uncomplicated; Z20.822 Contact with and (suspected) exposure to COVID-19; Z79.51 Long term (current) use of inhaled steroids; Z79.84 Long term (current) use of oral hypoglycemic drugs; Z79.899 Other long term (current) drug therapy
CPT/HCPCS: 36415; 80053; 80061; 80156; 80307; 81001; 82607; 82746; 82947; 83036; 84439; 84443; 85025; 87086; 87635; 93005; 94640; 94660; 97162; 99285; S9485

== ENCOUNTER 2023-03-30 15:43 | Emergency (ER) | payer OTHER, SELFPAY ==
[2023-03-30 16:00] VITALS: BP 142/78; BP 146/75; PULSE 87; PULSE 88; RESP 18; TEMP 36.2; O2SAT 94; O2SAT 96; BMI 40.2
--- NOTE | 2023-03-30 17:06 | ED_ITS ---
HPI - Psych General Chief Complaint: Psychiatric Symptoms Stated Complaint: SI WITH PLAN Time Seen by Provider: 03/30/23 16:06 Source: patient and RN notes reviewed Mode of arrival: ambulatory Limitations: no limitations History of Present Illness HPI Narrative: This is a 52-year-old female, with a past medical history of pre diabetes, bipolar disorder, PTSD, presenting to the emergency department with complaints of suicidal ideations. Patient was seen at [facility] last night and was discharged despite her actively stating that she was going to kill herself. She states that while she was sitting in the kitchen this afternoon she had a knife up to her wrist with intentions and cutting them to kill herself. She denies any homicidal ideations. Denies any alcohol or drug use. Denies auditory or visual hallucinations. She states that her triggers as being around her mother. She feels well, denies any fevers, chills, chest pain, shortness breath, abdominal pain, nausea, vomiting or diarrhea. No other complaints or concerns at this time. MD complaint: suicidal ideation and feels depressed Duration: constant Relieving factors: none Exacerbating factors: none Associated psychiatric symptoms: depression and suicidal ideation Associated symptoms: denies other symptoms Treatments prior to arrival: none If self harm: admits thoughts of self harm and has plan Details of plan: Cut wrist with knife Related Data Home Medications Medication Instructions Recorded Confirmed fluticasone 100 mcg-salmeterol 50 1 puff inhalation BID 08/01/21 03/31/23 mcg/dose blistr powdr for inhalation (Advair Diskus) lactase 3,000 unit tablet (Lactaid) 3,000 unit PO QID PRN Lactose 08/01/21 03/31/23 Intolerance umeclidinium 62.5 mcg/actuation 1 inh inhalation QAM 08/01/21 03/31/23 blister powder for inhalation (Incruse Ellipta) cetirizine 10 mg tablet 10 mg PO DAILY 12/19/22 03/31/23 cholecalciferol (vitamin D3) 25 25 mcg PO QAM 12/19/22 03/31/23 mcg (1,000 unit) tablet docusate sodium 100 mg capsule 100 mg PO QAM 12/19/22 03/31/23 famotidine 40 mg tablet 40 mg PO BID 12/19/22 03/31/23 gabapentin 400 mg capsule 400 mg PO TID 12/19/22 03/31/23 metformin 500 mg tablet,extended 1,000 mg PO DAILY 12/19/22 03/31/23 release 24 hr pantoprazole 40 mg tablet,delayed 40 mg PO BID 12/19/22 03/31/23 release piroxicam 10 mg capsule 10 mg PO BID 12/19/22 03/31/23 fluticasone propionate 50 1 spray intranasal DAILY 12/20/22 03/31/23 mcg/actuation nasal spray,suspension hydroxyzine pamoate 50 mg capsule 100 mg PO TID PRN Anxiety 12/20/22 03/31/23 Previous Rx's Medication Instructions Recorded multivitamin (Daily-Emil tablet) 1 tab PO DAILY 30 days #30 tabs 08/15/21 dicyclomine 10 mg capsule 10 mg PO QIDACHS PRN IBS #0 caps 01/24/22 ipratropium 0.5 mg-albuterol 3 mg 3 ml inhalation Q4H PRN Shortness 01/24/22 (2.5 mg base)/3 mL nebulization Of Breath #90 mL soln ondansetron 4 mg disintegrating 8 mg (2 x 4 mg) translingual TIDWM 01/24/22 tablet #0 tabs quetiapine 100 mg tablet 100 mg PO BEDTIME #0 tabs 01/24/22 trazodone 100 mg tablet 200 mg (2 x 100 mg) PO BEDTIME #0 01/24/22 tabs carbamazepine 200 mg 800 mg (4 x 200 mg) PO BID 30 days 12/26/22 tablet,extended release,12 hr #240 tabs simethicone 80 mg chewable tablet 80 mg PO QIDWMHS PRN flatulence 30 12/26/22 (Gas Relief (simethicone)) days #60 tabs prazosin 5 mg capsule 5 mg PO BEDTIME 30 days #30 caps 01/01/23 Allergies Allergy/AdvReac Type Severity Reaction Status Date / Time sulfamethoxazole Allergy Intermediate Rash Verified 03/30/23 15:59 [From Bactrim] trimethoprim [From Bactrim] Allergy Intermediate Rash Verified 03/30/23 15:59 Benzodiazepines AdvReac Intermediate Irritable Verified 03/30/23 15:59 diazepam [From Valium] AdvReac Intermediate Irritable Verified 03/30/23 15:59 Review of Systems 2 Review of Systems: Yes all other systems are reviewed and are negative Constitutional: Constitutional: Reports as per [facility] Past Medical History Medical History Asthma Diabetes mellitus, type 2 GERD (gastroesophageal reflux disease) Hearing loss Sleep apnea Social History Social History Household Members: Other Household Members Other:: 2 Housing: Other Housing Other:: [employer] Do you presently have visiting nurse or other home services: Yes Alcohol intake: never Patient Tobacco Use Status: Never used Tobacco Smoked in Last 30 Days: No e-Cigarette/Vaping Use: Never Used Use of substances other than those prescribed or required for medical reasons: No Advance Directives: No Advance Directives Information Provided: No Patient : No service: No Sexual orientation: Straight/Heterosexual Physical Exam 2 Vital Signs: Vital Signs: Last Vital Signs Temp 98.3 F 03/31/23 06:47 Pulse 63 03/31/23 06:47 Resp 17 03/31/23 06:47 BP 131/66 03/31/23 06:47 Pulse Ox 96 03/31/23 06:47 O2 Del Method Room Air 03/31/23 06:47 BMI result Body Mass Index 40.2 Const: General: cooperative, comfortable and no acute distress O rientation/consciousness: patient oriented x3 Limitations: no limitations HEENT: Head: Yes normal to inspection, Yes normocephalic and Yes atraumatic Ears: hearing grossly normal bilaterally General nose exam: Normal external nose present Face and sinus: Yes normal facial exam Mouth: Normal oral and palatal mucosa present, oropharynx normal and moist mucous membranes Throat: Yes posterior oropharynx normal Eyes: General: appearance normal, both eyes and all related structures E yelids: Yes eyelids normal Conjunctivae: conjunctivae normal Sclerae: s clerae normal Pupils: Equal, round and reactive pupils present EOM: EOMs intact bilaterally Neck: Neck: Yes normal visual inspection, Yes full ROM and Yes no lymphadenopathy Lymphatic: no lymphadenopathy noted Chest: Chest palpation & inspection: normal inspection of the chest Resp: Effort & Inspection: normal respiratory effort and able to speak in complete sentences Auscultation: clear to auscultation bilaterally, no crackles, no rales, no rhonchi and no wheezes Cardio: Rate: regular rate Rhythm: regular rhythm Heart sounds: S1 normal heart sound present and S2 normal heart sound present GI: Inspection: Yes normal to inspection Skin: General skin exam: no rashes or lesions noted Trauma: no lacerations or abrasions Wounds: no wounds Neuro: General: patient oriented x3 and moves all extremities Cranial nerves: Yes Equal, round and reactive pupils present Extrem: General: Yes normal to inspection Right upper extremity: normal to inspection Left upper extremity: normal to inspection Right lower extremity: normal to inspection Left lower extremity: normal to inspection Course Reevaluation(s) Reevaluation #1: Labs reviewed, microcytic anemia with a hemoglobin and hematocrit at 9.2/31%, chemistry within normal limits, alcohol level negative. Urine still pending. Patient will stay overnight until fully evaluated by the care team in the morning. Physician observation initiated Time: 20:26 Reevaluation #2: Mar 31 Signed out to me by Dr EDDY,reexamined by care team cleared for d/c no SI Time: 13:33 Medications Administered Generic Name Dose Route Start Last Admin Trade Name Freq PRN Reason Stop Dose Admin Docusate Sodium 100 mg 03/31/23 09:00 03/31/23 07:40 Docusate Sodium 100 Mg Capsule PO 100 mg DAILY DORCAS Administration Famotidine 40 mg 03/31/23 09:00 03/31/23 07:41 Famotidine 20 Mg Tablet PO 40 mg BID DORCAS Administration Fluticasone Propionate 1 spray 03/31/23 09:00 03/31/23 08:43 Fluticasone Propionate Nasal 16 Gm [place] NOSTRIL-B 1 spray DAILY DORCAS Administration Fluticasone/Vilanterol 1 puff 03/31/23 09:00 03/31/23 08:12 Fluticasone/Vilanterol 100/25 Blst.W.Dev INHALE Not Given DAILY DORCAS Gabapentin 400 mg 03/31/23 05:00 03/31/23 07:40 Gabapentin 400 Mg Capsule PO 400 mg TID DORCAS Administration Hydroxyzine HCl 100 mg 03/31/23 04:48 03/31/23 11:32 Hydroxyzine Hcl 50 Mg Tablet PO 100 mg TID PRN Administration Anxiety Loratadine 10 mg 03/31/23 09:00 03/31/23 07:40 Loratadine 10 Mg Tablet PO 10 mg DAILY DORCAS Administration Metformin HCl 1,000 mg 03/31/23 09:00 03/31/23 07:41 Metformin Hcl Er 500 Mg Tab.Er.24h PO 1,000 mg DAILY DORCAS Administration Multivitamins/Vitamin C 1 tab 03/31/23 09:00 03/31/23 07:40 Multivitamin Tablet PO 1 tab DAILY DORCAS Administration Omeprazole 20 mg 03/31/23 09:00 03/31/23 07:40 Omeprazole 20 Mg Capsule.Dr PO 20 mg BID DORCAS Administration Ondansetron HCl 8 mg 03/31/23 05:00 03/31/23 11:29 Ondansetron Odt 4 Mg Tab.Rapdis TRANSLINGU 8 mg TIDWM DORCAS Administration Quetiapine Fumarate 100 mg 03/31/23 05:00 03/31/23 05:54 Quetiapine Fumarate 100 Mg Tablet PO Not Given BEDTIME DORCAS Tiotropium [place] 2 puff 03/31/23 09:00 03/31/23 08:12 Tiotropium [place] 2.5 Mcg Inhaler INHALE Not Given DAILY DORCAS Trazodone HCl 200 mg 03/31/23 05:00 03/31/23 05:55 Trazodone Hcl 100 Mg Tablet PO Not Given BEDTIME DORCAS Vitamin D 25 mcg 03/31/23 09:00 03/31/23 07:40 Cholecalciferol (Vitamin D3) 25 Mcg Tablet PO 25 mcg DAILY DORCAS Administration Discontinued Medications Generic Name Dose Route Start Last Admin Trade Name Freq PRN Reason Stop Dose Admin Carbamazepine 800 mg 03/31/23 09:00 03/31/23 08:43 Carbamazepine Er 200 Mg Tab.Er.12h PO 800 mg BID DORCAS Administration Ondansetron HCl 4 mg 03/30/23 21:46 03/30/23 22:57 Ondansetron Odt 4 Mg Tab.Rapdis TRANSLINGU 03/30/23 21:47 4 mg ONCE ONE Administration Medical Decision Making Medical Decision Making MDM Narrative: 52-year-old female presenting to the emergency department with complaints of suicidal ideation with plan to slit her wrist. She has been psychiatrically hospitalized many times, went to [facility] and was discharged despite suicidal ideations. On arrival, vital signs 146/75, all other vital signs within normal limits. Lungs are clear to auscultation bilaterally, abdomen is soft, nontender, nondistended. Patient with one-to-one at bedside is, and cooperative. Will check basic labs, UA. Care Team consult ordered Differential Diagnosis Differential Diagnoses: The differential diagnosis associated with the presentation includes depression, anxiety, suicidal ideation, UTI Lab Data MDM Lab Attestation statement: I reviewed the patient's lab results. 03/30/23 17:50 03/30/23 17:51 Labs: Lab Results 03/30/23 03/30/23 03/30/23 Range/Units 17:50 17:51 17:52 WBC 10.0 (4.8-10.8) X10*3/uL RBC 4.11 L (4.20-5.50) X10*6/uL Hgb 9.2 L (12.0-16.0) g/dl Hct 31.0 L (37.0-47.0) % MCV 75.4 L (80.0-98.0) fL MCH 22.4 L (27.0-33.0) pg MCHC 29.7 L (31.0-35.0) g/dl RDW 17.8 H (11.0-16.0) % Plt Count 255 (160-400) X10*3/uL MPV 9.0 L (9.4-12.3) fL Immature Gran % (Auto) 0.6 H (0.0-0.4) % Neut % (Auto) 69.0 (45-73) % Lymph % (Auto) 21.1 (20-40) % [place] % (Auto) 6.8 (2-11) % Eos % (Auto) 2.2 (0-4) % Baso % (Auto) 0.3 (0-2) % Lymph # (Auto) 2.1 (1.2-4.9) X10*3/uL [place] # (Auto) 0.7 (0.1-1.2) X10*3/uL Eos # (Auto) 0.2 (0.0-0.4) X10*3/uL Baso # (Auto) 0.0 (0.0-0.2) X10*3/uL Abs Immat Gran (auto) 0.06 H (0.00-0.03) X10*3/uL Absolute Neuts (auto) 6.9 (2.0-8.3) x10*3/uL Absolute Nucleated RBC 0.000 (0.0-0.012) X10*3/uL Nucleated RBC % (auto) 0.0 (0.0-0.2) /100WBC Sodium 141 (135-145) mmol/L Potassium 3.7 (3.3-5.1) mmol/L Chloride 106 (96-108) mmol/L Carbon Dioxide 26 (22-29) mmol/L Anion Gap 13 (12-20) BUN 12 (9-16) mg/dL Creatinine 0.68 (0.5-1.4) mg/dL Estim Creat Clear Calc 108.1 Estimated GFR > 60 Random Glucose 81 (60-115) mg/dL Calcium 8.9 (8.4-10.2) mg/dL Magnesium 2.0 (1.6-2.6) mg/dL Total Bilirubin 0.2 (0.0-1.0) mg/dL Direct Bilirubin < 0.2 (0.0-0.5) mg/dL AST 15 (5-31) U/L ALT 11 (0-31) U/L Alkaline Phosphatase 100 (39-117) U/L Total Protein 6.9 (6.5-8.0) g/dL Albumin 3.8 (3.5-5.0) g/dL Urine Color Urine Appearance Urine pH (5.0-9.0) Ur Specific [place] (1.005-1.025) Urine Protein (Neg-Trace) mg/dL Urine Glucose (UA) (Negative) mg/dL Urine Ketones (Negative) mg/dL Urine Blood (Negative) Urine Nitrite (Negative) Ur Leukocyte Esterase (Negative) Urine Opiates Screen (Not Detect) Urine Fentanyl Screen (Not Detect) Ur Barbiturates Screen (Not Detect) Ur Phencyclidine Scrn (Not Detect) Ur Amphetamines Screen (Not Detect) U Benzodiazepines Scrn (Not Detect) Urine Cocaine Screen (Not Detect) U Marijuana (THC) Screen (Not Detect) Ethyl Alcohol < 10 mg/dL 03/31/23 Range/Units 03:22 WBC (4.8-10.8) X10*3/uL RBC (4.20-5.50) X10*6/uL Hgb (12.0-16.0) g/dl Hct (37.0-47.0) % MCV (80.0-98.0) fL MCH (27.0-33.0) pg MCHC (31.0-35.0) g/dl RDW (11.0-16.0) % Plt Count (160-400) X10*3/uL MPV (9.4-12.3) fL Immature Gran % (Auto) (0.0-0.4) % Neut % (Auto) (45-73) % Lymph % (Auto) (20-40) % [place] % (Auto) (2-11) % Eos % (Auto) (0-4) % Baso % (Auto) (0-2) % Lymph # (Auto) (1.2-4.9) X10*3/uL [place] # (Auto) (0.1-1.2) X10*3/uL Eos # (Auto) (0.0-0.4) X10*3/uL Baso # (Auto) (0.0-0.2) X10*3/uL Abs Immat Gran (auto) (0.00-0.03) X10*3/uL Absolute Neuts (auto) (2.0-8.3) x10*3/uL Absolute Nucleated RBC (0.0-0.012) X10*3/uL Nucleated RBC % (auto) (0.0-0.2) /100WBC Sodium (135-145) mmol/L Potassium (3.3-5.1) mmol/L Chloride (96-108) mmol/L Carbon Dioxide (22-29) mmol/L Anion Gap (12-20) BUN (9-16) mg/dL Creatinine (0.5-1.4) mg/dL Estim Creat Clear Calc Estimated GFR Random Glucose (60-115) mg/dL Calcium (8.4-10.2) mg/dL Magnesium (1.6-2.6) mg/dL Total Bilirubin (0.0-1.0) mg/dL Direct Bilirubin (0.0-0.5) mg/dL AST (5-31) U/L ALT (0-31) U/L Alkaline Phosphatase (39-117) U/L Total Protein (6.5-8.0) g/dL Albumin (3.5-5.0) g/dL Urine Color Yellow Urine Appearance Clear Urine pH 5.5 (5.0-9.0) Ur Specific [place] 1.015 (1.005-1.025) Urine Protein Negative (Neg-Trace) mg/dL Urine Glucose (UA) Negative (Negative) mg/dL Urine Ketones Negative (Negative) mg/dL Urine Blood Negative (Negative) Urine Nitrite Negative (Negative) Ur Leukocyte Esterase Negative (Negative) Urine Opiates Screen Not Detected (Not Detect) Urine Fentanyl Screen Not Detected (Not Detect) Ur Barbiturates Screen Not Detected (Not Detect) Ur Phencyclidine Scrn Not Detected (Not Detect) Ur Amphetamines Screen Not Detected (Not Detect) U Benzodiazepines Scrn Not Detected (Not Detect) Urine Cocaine Screen Not Detected (Not Detect) U Marijuana (THC) Screen Not Detected (Not Detect) Ethyl Alcohol mg/dL Radiology Impression Discussion of test interpretation with radiology: I have reviewed the radiologist's reading. External Record Review External record reviewed: Inpatient record, Office record, Outpatient record, Prior outpatient labs, Prior outpatient radiology, Primary care record and Outside ED record Discharge Plan Discharge Clinical Impression: Suicidal ideation Patient Disposition: Still a Patient Prescriptions: No Action ipratropium-albuterol 0.5 mg-3 mg(2.5 mg base)/3 mL Solution For Nebulization 3 ml inhalation Q4H PRN (Reason: Shortness Of Breath) Qty: 90 0RF dicyclomine 10 mg Capsule 10 mg PO QIDACHS PRN (Reason: IBS) Qty: 0 0RF quetiapine 100 mg Tablet 100 mg PO BEDTIME Qty: 0 0RF trazodone 100 mg Tablet 200 mg PO BEDTIME Qty: 0 0RF ondansetron 4 mg Tablet,Disintegrating 8 mg translingual TIDWM Qty: 0 0RF fluticasone propion-salmeterol [Advair Diskus] 100-50 mcg/dose blister with device 1 puff inhalation BID lactase [Lactaid] 3,000 unit Tablet 3,000 unit PO QID PRN (Reason: Lactose Intolerance) Incruse Ellipta 62.5 mcg/actuation Blister With Device 1 inh INHALATION QAM multivitamin [Daily-Emil] Tablet 1 tab PO DAILY 30 Days Qty: 30 0RF gabapentin 400 mg capsule 400 mg PO TID metformin 500 mg tablet extended release 24 hr 1,000 mg PO DAILY piroxicam 10 mg capsule 10 mg PO BID cholecalciferol (vitamin D3) 25 mcg (1,000 unit) tablet 25 mcg PO QAM cetirizine 10 mg tablet 10 mg PO DAILY famotidine 40 mg tablet 40 mg PO BID pantoprazole 40 mg tablet,delayed release (DR/EC) 40 mg PO BID docusate sodium 100 mg capsule 100 mg PO QAM hydroxyzine pamoate 50 mg capsule 100 mg PO TID PRN (Reason: Anxiety) fluticasone propionate 50 mcg/actuation spray,suspension 1 spray intranasal DAILY carbamazepine 200 mg Tablet Extended Release 12 Hr 800 mg PO BID 30 Days Qty: 240 0RF simethicone [Gas Relief (simethicone)] 80 mg Tablet,Chewable 80 mg PO QIDWMHS PRN (Reason: flatulence) 30 Days Qty: 60 0RF prazosin 5 mg capsule 5 mg PO BEDTIME 30 Days Qty: 30 0RF Interventions: [place]-Suicide Risk Severity Scale Last Done: 03/31/23 08:00
--- NOTE | 2023-03-30 17:38 | PC.NURSE ---
pt comes in via EMS after pt verbalizing SI. pt has a plan to split her wrists. pt was currently at another hospital where she didn't think that they took her seriously - pt now here in our ED. 1:1 sitter bedside with pt. this rn has not been able to speak w/ pt yet d/t pt sleeping - will let pt rest and speak with her when she wakes up. pt fully changed over. belongings in pod. respirations even and unlabored.
--- NOTE | 2023-03-30 18:06 | PC.NURSE ---
mila brennan labs and sent.
[2023-03-30 18:07] LABS: MANUAL DIFF FLAG NO
[2023-03-30 18:09] LABS: Basophils Percent Auto 0.3 % (0-2); Eosinophils Absolute Auto 0.2 X10*3/uL (0.0-0.4); Eosinophils Percent Auto 2.2 % (0-4); Hemoglobin 9.2 g/dl (12.0-16.0); Imm Gran Abs Auto 0.06 X10*3/uL (0.00-0.03); Imm Gran Pct Auto 0.6 % (0.0-0.4); Lymphocytes Absolute Auto 2.1 X10*3/uL (1.2-4.9); Lymphocytes Percent Auto 21.1 % (20-40); Mean Corpuscular HGB Conc 29.7 g/dl (31.0-35.0); Mean Corpuscular Hemoglobin 22.4 pg (27.0-33.0); Mean Corpuscular Volume 75.4 fL (80.0-98.0); Monocytes Absolute Auto 0.7 X10*3/uL (0.1-1.2); Monocytes Percent Auto 6.8 % (2-11); Neutrophils Absolute Auto 6.9 x10*3/uL (2.0-8.3); Platelet Count 255 X10*3/uL (160-400); Red Blood Count 4.11 X10*6/uL (4.20-5.50); Red Cell Distribution Width 17.8 % (11.0-16.0)
[2023-03-30 18:18] LABS: Ethanol < 10 mg/dL
[2023-03-30 18:19] LABS: Alanine Aminotransferase 11 U/L (0-31); Albumin Level 3.8 g/dL (3.5-5.0); Alkaline Phosphatase 100 U/L (39-117); Anion Gap 13 (12-20); Aspartate Amino Transferase 15 U/L (5-31); Bilirubin Direct < 0.2 mg/dL (0.0-0.5); Bilirubin Total 0.2 mg/dL (0.0-1.0); Blood Urea Nitrogen 12 mg/dL (9-16); Calcium 8.9 mg/dL (8.4-10.2); Carbon Dioxide 26 mmol/L (22-29); Chloride 106 mmol/L (96-108); Creatinine Clr Calc Pharmacy 108.1; Estimated Glomerular Filt Rate > 60; Glucose Random 81 mg/dL (60-115); Potassium 3.7 mmol/L (3.3-5.1); Sodium 141 mmol/L (135-145); Total Protein 6.9 g/dL (6.5-8.0)
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
--- NOTE | 2023-03-30 22:38 | PC.NURSE ---
PT endorsing nausea. Requested medications. Informed provider new orders placed.
[2023-03-30] MEDS: Ondansetron ODT 4 MG TAB.RAPDIS TRANSLINGU (22:57)
[2023-03-30 23:32] VITALS: BP 128/68; PULSE 66; RESP 14; TEMP 36.7; O2SAT 95
[2023-03-31 03:28] LABS: Appearance Urine Clear; Color Urine Yellow; Glucose Urine UA Negative (Negative); Leukocyte Esterase Urine Negative (Negative); Nitrite Urine Negative (Negative); PH 5.5 (5.0-9.0); Specific Gravity - Urine 1.015 (1.005-1.025); Urine Blood Negative (Negative); Urine Ketones Negative (Negative); Urine Protein Negative (Neg-Trace)
[2023-03-31 03:39] LABS: Amphetamine Screen Urine Not Detected (Not Detect); Barbiturates, Urine Not Detected (Not Detect); Benzodiazepines Screen Urine Not Detected (Not Detect); Cannabinoid Screen Urine Not Detected (Not Detect); Cocaine Screen Urine Not Detected (Not Detect); Fentanyl, urine Not Detected (Not Detect); Opiate Screen Urine Not Detected (Not Detect); Phencyclidine Screen Urine Not Detected (Not Detect)
[2023-03-31] MEDS: Gabapentin 400 MG CAPSULE PO ×2 (06:17→07:40)
[2023-03-31] MEDS: hydrOXYzine HCL 50 MG TABLET 100 MG PO ×2 (06:17→11:32)
--- NOTE | 2023-03-31 06:31 | PC.NURSE ---
Med rec completed, diet ordered. Spoke with Dr Lopez regarding ordering medications. Adminsitered as per MAR
[2023-03-31 06:47] VITALS: BP 131/66; PULSE 63; RESP 17; TEMP 36.8; O2SAT 96
[2023-03-31] MEDS: Ondansetron ODT 4 MG TAB.RAPDIS 8 MG TRANSLINGU ×2 (07:40→11:29)
[2023-03-31] MEDS: Multivitamin TABLET 1 TAB PO (07:40)
[2023-03-31] MEDS: Docusate Sodium 100 MG CAPSULE PO (07:40)
[2023-03-31] MEDS: Loratadine 10 MG TABLET PO (07:40)
[2023-03-31] MEDS: Omeprazole 20 MG CAPSULE.DR PO (07:40)
[2023-03-31] MEDS: Cholecalciferol (Vitamin D3) 25 MCG TABLET PO (07:40)
[2023-03-31] MEDS: metFORMIN HCl ER 500 MG TAB.ER.24H 1000 MG PO (07:41)
[2023-03-31] MEDS: Famotidine 20 MG TABLET 40 MG PO (07:41)
[2023-03-31] MEDS: Fluticasone Propionate Nasal 16 GM SPRAY 1 SPRAY NOSTRIL-B (08:43)
[2023-03-31] MEDS: carBAMazepine ER 200 MG TAB.ER.12H 800 MG PO (08:43)
--- NOTE | 2023-03-31 10:58 | PC.NURSE ---
remains with 1:[address], clam and cooperative, continues to endorse SI, denies pain or discomfort.
--- NOTE | 2023-03-31 11:32 | PC.NURSE ---
Patient reporting increased anxiety and thought of SI, requesting atarax, per provider okay to give prn dose early.
--- NOTE | 2023-03-31 14:15 | PC.NURSE ---
Patient denies SI at this time, discharge plan reviewed with patient who verbalized understanding
== END 2023-03-31 14:16 | disposition home or self-care (01) ==
PROVIDERS: Physician Assistant Medical; Emergency Provider Emergency Medicine; PCP Physician Assistant
DX: R45.851 Suicidal ideations (principal); F31.9 Bipolar disorder, unspecified; F43.10 Post-traumatic stress disorder, unspecified; D50.9 Iron deficiency anemia, unspecified; F41.9 Anxiety disorder, unspecified; E11.9 Type 2 diabetes mellitus without complications; Z79.84 Long term (current) use of oral hypoglycemic drugs; Z79.899 Other long term (current) drug therapy
CPT/HCPCS: 36415; 80048; 80076; 80307; 81003; 83735; 85025; 99284; S9485

== ENCOUNTER 2023-04-14 13:11 | Emergency (ER) | payer OTHER, SELFPAY ==
--- NOTE | ~2023-04-14 | CT_ITS ---
EXAMINATION: CT HEAD WITHOUT CONTRAST CLINICAL INFORMATION: Injury 1 week ago. Double vision, dizziness. COMPARISON: None available. TECHNIQUE: Contiguous axial imaging was performed from the skull base to vertex without intravenous administration of contrast. This CT examination was performed using dose optimization techniques as appropriate, variously including the following: *Automated exposure control *Adjustment of mA and/or kV according to patient size (this includes techniques or standardized protocols for targeted exams where dose is matched to indication/reason for exam; i.e. extremities or head) *Use of iterative reconstruction technique DLP: 657 mGy-cm FINDINGS: There is no evidence of acute intracranial hemorrhage or territorial infarction. No abnormal mass effect or midline shift is seen. [place] to white matter differentiation is well preserved. No extra-axial fluid collections are identified. The ventricles are normal in size. No abnormal attenuation in the brain parenchyma. No acute calvarial fracture.. Paranasal sinuses and mastoid air cells are well-aerated. CT/CT head/brain wo IV con IMPRESSION: No CT evidence of acute intracranial hemorrhage or edematous territorial infarction. Etiology of the patient's symptoms has not been determined on the noncontrast study. Further evaluation with CTA or MRI as clinically indicated.
[2023-04-14 13:22] VITALS: BP 170/102; PULSE 93; RESP 18; TEMP 36.5; O2SAT 96; BMI 43.0
--- NOTE | 2023-04-14 13:26 | ED.GENADULT ---
HPI - General Adult General Chief complaint: Psychiatric Symptoms Stated complaint: depress Time Seen by Provider: 04/14/23 13:33 Source: patient Limitations: no limitations History of Present Illness HPI narrative: 52-year-old female presents from a halfway with suicidal ideation. Patient has poor reports having had a difficult time recently. Patient reports having had recent lightheadedness and dizziness. She did fall approximately 1 week ago hitting her head without loss consciousness. Her dizziness has been progressively worse since then. She denies any focal neurologic deficits. Patient also reports increasing anxiety and depression. She has suicidal ideation. Today she has thought about taking a knife and slitting her wrists. She has also thought about swallowing household parts cleaner. Patient describes her symptoms as severe. There is no clear relieving or exacerbating features. Patient reports being compliant with her medications. Patient did express that she wants to make sure she is admitted at this time. Related Data Home Medications Medication Instructions Recorded Confirmed fluticasone 100 mcg-salmeterol 50 1 puff inhalation BID 08/01/21 03/31/23 mcg/dose blistr powdr for inhalation (Advair Diskus) lactase 3,000 unit tablet (Lactaid) 3,000 unit PO QID PRN Lactose 08/01/21 03/31/23 Intolerance umeclidinium 62.5 mcg/actuation 1 inh inhalation QAM 08/01/21 03/31/23 blister powder for inhalation (Incruse Ellipta) cetirizine 10 mg tablet 10 mg PO DAILY 12/19/22 03/31/23 cholecalciferol (vitamin D3) 25 25 mcg PO QAM 12/19/22 03/31/23 mcg (1,000 unit) tablet docusate sodium 100 mg capsule 100 mg PO QAM 12/19/22 03/31/23 famotidine 40 mg tablet 40 mg PO BID 12/19/22 03/31/23 gabapentin 400 mg capsule 400 mg PO TID 12/19/22 03/31/23 metformin 500 mg tablet,extended 1,000 mg PO DAILY 12/19/22 03/31/23 release 24 hr pantoprazole 40 mg tablet,delayed 40 mg PO BID 12/19/22 03/31/23 release piroxicam 10 mg capsule 10 mg PO BID 12/19/22 03/31/23 fluticasone propionate 50 1 spray intranasal DAILY 12/20/22 03/31/23 mcg/actuation nasal spray,suspension hydroxyzine pamoate 50 mg capsule 100 mg PO TID PRN Anxiety 12/20/22 03/31/23 Previous Rx's Medication Instructions Recorded multivitamin (Daily-Emil tablet) 1 tab PO DAILY 30 days #30 tabs 08/15/21 dicyclomine 10 mg capsule 10 mg PO QIDACHS PRN IBS #0 caps 01/24/22 ipratropium 0.5 mg-albuterol 3 mg 3 ml inhalation Q4H PRN Shortness 01/24/22 (2.5 mg base)/3 mL nebulization Of Breath #90 mL soln ondansetron 4 mg disintegrating 8 mg (2 x 4 mg) translingual TIDWM 01/24/22 tablet #0 tabs quetiapine 100 mg tablet 100 mg PO BEDTIME #0 tabs 01/24/22 trazodone 100 mg tablet 200 mg (2 x 100 mg) PO BEDTIME #0 01/24/22 tabs carbamazepine 200 mg 800 mg (4 x 200 mg) PO BID 30 days 12/26/22 tablet,extended release,12 hr #240 tabs simethicone 80 mg chewable tablet 80 mg PO QIDWMHS PRN flatulence 30 12/26/22 (Gas Relief (simethicone)) days #60 tabs prazosin 5 mg capsule 5 mg PO BEDTIME 30 days #30 caps 01/01/23 Allergies Allergy/AdvReac Type Severity Reaction Status Date / Time sulfamethoxazole Allergy Intermediate Rash Verified 04/14/23 13:22 [From Bactrim] trimethoprim [From Bactrim] Allergy Intermediate Rash Verified 04/14/23 13:22 adhesive tape Allergy Rash Verified 04/14/23 13:22 [place] [employer] Allergy Gastrointestinal Verified 04/14/23 13:22 Upset Benzodiazepines AdvReac Intermediate Irritable Verified 04/14/23 13:22 diazepam [From Valium] AdvReac Intermediate Irritable Verified 04/14/23 13:22 Review of Systems Review of Systems: CONSTITUTIONAL: Denies weight loss, fever and chills. HEENT: + in vision -changes hearing. RESPIRATORY: Denies SOB and cough. CV: Denies palpitations no CP. GI: Denies abdominal pain, nausea, vomiting and diarrhea. : Denies dysuria and urinary frequency. MSK: Denies myalgia and joint pain. SKIN: Denies rash and pruritus. NEUROLOGICAL: Denies headache and syncope. PSYCHIATRIC: Denies recent changes in mood. Denies anxiety and depression. All other ROS are negative unless in [facility]PI [facility] Past Medical History Medical History GERD (gastroesophageal reflux disease) Sleep apnea Asthma Hearing loss Diabetes mellitus, type 2 Social History Social History Household Members: Other Household Members Other:: 2 Housing: Other Housing Other:: [facility] halfway Do you presently have visiting nurse or other home services: Yes Alcohol intake: never Patient Tobacco Use Status: Never used Tobacco Smoked in Last 30 Days: No e-Cigarette/Vaping Use: Never Used Use of substances other than those prescribed or required for medical reasons: No Advance Directives: No service: No Sexual orientation: Straight/Heterosexual Physical Exam ED Vital Signs: Vital Signs - 24 hr 04/14/23 13:22 04/14/23 13:38 04/14/23 14:52 Temperature 97.7 F 97.7 F 97.3 F Pulse Rate 93 89 93 Respiratory Rate 18 18 18 Blood Pressure 170/102 H 164/94 H 160/87 H Pulse Oximetry 96 98 97 Oxygen Delivery Method Room Air Room Air Room Air BMI result Body Mass Index 43.0 GEN: Well developed, no acute distress, alert, oriented HEENT: Normocephalic, atraumatic, normal external ears, nose appears normal, no oropharyngeal edema or exudates Eyes: Normal to appearance Neck: Supple, no lymphadenopathy Respiratory: Talks in complete sentences, no respiratory distress, clear to auscultation bilaterally Cardiovascular: Regular rate and rhythm, no murmurs rubs or gallops Abdomen: Soft, nontender, nondistended, no guarding, no rebound Back: No CVA tenderness Extremities: No clubbing cyanosis or edema Neurologic: No focal neurologic deficits, cranial nerves 2-12 intact, strength is 5/5 bilaterally Skin: No rash Psychiatric and rest, anxious, expressions of suicidal ideation with plan Course Course Course Narrative: RME: 52 yold female with pmh of depression presents to the ED for Depression, suicidal thougths, and manic. patient also states dizziness after hitting head. patient dizziness since hitting head. Reevaluation(s) Reevaluation #1: Patient is medically clear for psychiatric evaluation. CT scan was negative. There was negative toxicology panel. Will place patient in physician observation. Time: 15:25 Reevaluation #2: This 4:00 p.m.. The patient's care be transition to my colleague pending care team evaluation. Time: 16:06 Reevaluation #3: cleared by CARE team, no access to house clenaer or knives. DC plan in place. Time: 16:16 Medical Decision Making Medical Decision Making [facility] Narrative: Patient presents with dizziness, double vision, previous head injury. Will obtain a CT scan to rule out acute mass effect. Additionally, patient has suicidal ideation with a plan. Differential diagnosis includes depression, anxiety, mood disorder, bipolar disorder, schizophrenia, malingering. Plan will be to medically clear patient for psychiatric evaluation Differential Diagnosis Differential Diagnoses: The differential diagnosis associated with the presentation includes (See above) Admission/Observation Consideration of admission/observation: Escalation of care including admission/observation considered Consult Healthcare Provider Management of the patient was discussed with: Behavioral Health Provider Lab Data [facility] Lab Attestation statement: I reviewed the patient's lab results. 04/14/23 14:05 04/14/23 14:05 Labs: Lab Results 04/14/23 04/14/23 Range/Units 13:55 14:05 WBC 6.9 (4.8-10.8) X10*3/uL RBC 3.96 L (4.20-5.50) X10*6/uL Hgb 8.9 L (12.0-16.0) g/dl Hct 30.5 L (37.0-47.0) % MCV 77.0 L (80.0-98.0) fL MCH 22.5 L (27.0-33.0) pg MCHC 29.2 L (31.0-35.0) g/dl RDW 17.3 H (11.0-16.0) % Plt Count 252 (160-400) X10*3/uL MPV 9.1 L (9.4-12.3) fL Immature Gran % (Auto) 0.6 H (0.0-0.4) % Neut % (Auto) 67.5 (45-73) % Lymph % (Auto) 21.0 (20-40) % Tate % (Auto) 7.1 (2-11) % Eos % (Auto) 3.4 (0-4) % Baso % (Auto) 0.4 (0-2) % Lymph # (Auto) 1.4 (1.2-4.9) X10*3/uL Tate # (Auto) 0.5 (0.1-1.2) X10*3/uL Eos # (Auto) 0.2 (0.0-0.4) X10*3/uL Baso # (Auto) 0.0 (0.0-0.2) X10*3/uL Abs Immat Gran (auto) 0.04 H (0.00-0.03) X10*3/uL Absolute Neuts (auto) 4.6 (2.0-8.3) x10*3/uL Absolute Nucleated RBC 0.000 (0.0-0.012) X10*3/uL Nucleated RBC % (auto) 0.0 (0.0-0.2) /100WBC Sodium 141 (135-145) mmol/L Potassium 3.9 (3.3-5.1) mmol/L Chloride 107 (96-108) mmol/L Carbon Dioxide 22 (22-29) mmol/L Anion Gap 16 (12-20) BUN 12 (9-16) mg/dL Creatinine 0.64 (0.5-1.4) mg/dL Estim Creat Clear Calc 119.3 Estimated GFR > 60 Random Glucose 89 (60-115) mg/dL Calcium 8.6 (8.4-10.2) mg/dL Total Bilirubin 0.1 (0.0-1.0) mg/dL AST 11 (5-31) U/L ALT 10 (0-31) U/L Alkaline Phosphatase 100 (39-117) U/L Total Protein 6.8 (6.5-8.0) g/dL Albumin 3.9 (3.5-5.0) g/dL Urine Color Yellow Urine Appearance Cloudy Urine pH 7.0 (5.0-9.0) Ur Specific [place] 1.020 (1.005-1.025) Urine Protein Negative (Neg-Trace) mg/dL Urine Glucose (UA) Negative (Negative) mg/dL Urine Ketones Negative (Negative) mg/dL Urine Blood Negative (Negative) Urine Nitrite Negative (Negative) Ur Leukocyte Esterase Small (1+) H (Negative) Urine RBC 3-5 H (0-2) /HPF Urine WBC 0-5 (0-5) /HPF Ur Squamous Epith Cells 3-5 (0-2) /HPF Urine Bacteria 1+ (None Seen) Hyaline Casts 0-2 (0-2) /LPF Urine Test NEGATIVE (NEGATIVE) Salicylates < 5.0 L (15-30) mg/dL Urine Opiates Screen Not Detected (Not Detect) Urine Fentanyl Screen Not Detected (Not Detect) Acetaminophen < 17 (<30) mcg/mL Ur Barbiturates Screen Not Detected (Not Detect) Carbamazepine 12.8 H (5.0-12.0) mcg/mL Ur Phencyclidine Scrn Not Detected (Not Detect) Ur Amphetamines Screen Not Detected (Not Detect) U Benzodiazepines Scrn Not Detected (Not Detect) Urine Cocaine Screen Not Detected (Not Detect) U Marijuana (THC) Screen Not Detected (Not Detect) Ethyl Alcohol < 10 mg/dL COVID-19 ([facility]) Negative (Negative) COVID-19 Clin Com See Note Independent Interpretation I performed an independent interpretation of an: CT Scan (Head: No acute traumatic injury) Radiology Impression Discussion of test interpretation with radiology: I have reviewed the radiologist's reading. Radiologist Impression: CT/CT head/brain wo IV con IMPRESSION: No CT evidence of acute intracranial hemorrhage or edematous territorial infarction. Etiology of the patient's symptoms has not been determined on the noncontrast study. Further evaluation with CTA or MRI as clinically indicated. Dictated By: Jet Cruz MD Signed By: <Electronically signed by Jet Cruz MD in OV> 04/14/23 4081 Prescription Management I considered prescription management with: Other (Anxiety medications) Chronic Conditions Patient?s care impacted by: Other (Bipolar disorder) Discharge Plan Discharge Clinical Impression: Suicidal ideation, Acute anxiety, Bipolar disorder Patient Disposition: Home, Self-Care Instructions: Bipolar Disorder (DC), Anxiety (ED) Prescriptions: No Action ipratropium-albuterol 0.5 mg-3 mg(2.5 mg base)/3 mL Solution For Nebulization 3 ml inhalation Q4H PRN (Reason: Shortness Of Breath) Qty: 90 0RF dicyclomine 10 mg Capsule 10 mg PO QIDACHS PRN (Reason: IBS) Qty: 0 0RF quetiapine 100 mg Tablet 100 mg PO BEDTIME Qty: 0 0RF trazodone 100 mg Tablet 200 mg PO BEDTIME Qty: 0 0RF ondansetron 4 mg Tablet,Disintegrating 8 mg translingual TIDWM Qty: 0 0RF fluticasone propion-salmeterol [Advair Diskus] 100-50 mcg/dose blister with device 1 puff inhalation BID lactase [Lactaid] 3,000 unit Tablet 3,000 unit PO QID PRN (Reason: Lactose Intolerance) Incruse Ellipta 62.5 mcg/actuation Blister With Device 1 inh INHALATION QAM multivitamin [Daily-Emil] Tablet 1 tab PO DAILY 30 Days Qty: 30 0RF gabapentin 400 mg capsule 400 mg PO TID metformin 500 mg tablet extended release 24 hr 1,000 mg PO DAILY piroxicam 10 mg capsule 10 mg PO BID cholecalciferol (vitamin D3) 25 mcg (1,000 unit) tablet 25 mcg PO QAM cetirizine 10 mg tablet 10 mg PO DAILY famotidine 40 mg tablet 40 mg PO BID pantoprazole 40 mg tablet,delayed release (DR/EC) 40 mg PO BID docusate sodium 100 mg capsule 100 mg PO QAM hydroxyzine pamoate 50 mg capsule 100 mg PO TID PRN (Reason: Anxiety) fluticasone propionate 50 mcg/actuation spray,suspension 1 spray intranasal DAILY carbamazepine 200 mg Tablet Extended Release 12 Hr 800 mg PO BID 30 Days Qty: 240 0RF simethicone [Gas Relief (simethicone)] 80 mg Tablet,Chewable 80 mg PO QIDWMHS PRN (Reason: flatulence) 30 Days Qty: 60 0RF prazosin 5 mg capsule 5 mg PO BEDTIME 30 Days Qty: 30 0RF Referrals: Melissa Castrejon PA [Primary Care Provider] - Interventions: [place]-Suicide Risk Severity Scale Last Done: 04/14/23 13:56 ED Discharge Assessment Last Done: 04/14/23 16:24
[2023-04-14 13:38] VITALS: BP 164/94; PULSE 89; RESP 18; TEMP 36.5; O2SAT 98; BMI 43.0
--- NOTE | 2023-04-14 14:00 | PC.NURSE ---
Pt arrived to unit from triage. Pt is very manic/emotional and having sporadic behavior. Pt is hyperventilating attempting to try and tell staff she is extremely depressed, having SI thoughts of cutting her arms with a knife, then also telling MD that she also thought about drinking cleaning supplies. Pt reporting she feels she needs to be inpatient and not discharged back to her snf. Pt reporting her mom is still a major trigger for her, and she is trying to figure out how she can get rid of her. Pt able to control her breathing once talking with staff, pt was changed over into pod clothing, belongings placed in locker 7, Labs/urine obtained. Provider placed order for head CT d/t dizziness and double vision reported by pt, awaiting ct at this time
[2023-04-14 14:14] LABS: MANUAL DIFF FLAG NO
[2023-04-14 14:17] LABS: Basophils Percent Auto 0.4 % (0-2); Eosinophils Absolute Auto 0.2 X10*3/uL (0.0-0.4); Eosinophils Percent Auto 3.4 % (0-4); Hematocrit 30.5 % (37.0-47.0); Hemoglobin 8.9 g/dl (12.0-16.0); Imm Gran Abs Auto 0.04 X10*3/uL (0.00-0.03); Imm Gran Pct Auto 0.6 % (0.0-0.4); Lymphocytes Absolute Auto 1.4 X10*3/uL (1.2-4.9); Mean Corpuscular HGB Conc 29.2 g/dl (31.0-35.0); Mean Corpuscular Hemoglobin 22.5 pg (27.0-33.0); Mean Platelet Volume 9.1 fL (9.4-12.3); Monocytes Absolute Auto 0.5 X10*3/uL (0.1-1.2); Monocytes Percent Auto 7.1 % (2-11); Neutrophils Absolute Auto 4.6 x10*3/uL (2.0-8.3); Neutrophils Percent Auto 67.5 % (45-73); Platelet Count 252 X10*3/uL (160-400); Red Blood Count 3.96 X10*6/uL (4.20-5.50); Red Cell Distribution Width 17.3 % (11.0-16.0); White Blood Count 6.9 X10*3/uL (4.8-10.8)
[2023-04-14 14:18] LABS: UPreg QC Valid YES
[2023-04-14 14:19] LABS: Appearance Urine Cloudy; Color Urine Yellow; Glucose Urine UA Negative (Negative); Leukocyte Esterase Urine Small (1+) (Negative); Nitrite Urine Negative (Negative); UMIC TRIGGER UA YES; Urine Blood Negative (Negative); Urine Ketones Negative (Negative); Urine Pregnancy NEGATIVE (NEGATIVE); Urine Protein Negative (Neg-Trace)
[2023-04-14 14:30] LABS: Amphetamine Screen Urine Not Detected (Not Detect); Bacteria Urine 1+ (None Seen); Barbiturates, Urine Not Detected (Not Detect); Benzodiazepines Screen Urine Not Detected (Not Detect); Cannabinoid Screen Urine Not Detected (Not Detect); Cocaine Screen Urine Not Detected (Not Detect); Fentanyl, urine Not Detected (Not Detect); Hyaline Casts Urine 0-2 /LPF (0-2); Opiate Screen Urine Not Detected (Not Detect); Phencyclidine Screen Urine Not Detected (Not Detect); WBC Urine 0-5 /HPF (0-5)
[2023-04-14 14:34] LABS: Carbamazepine Tegretol 12.8 mcg/mL (5.0-12.0)
[2023-04-14 14:49] LABS: Acetaminophen LAB < 17 mcg/mL (<30); Alanine Aminotransferase 10 U/L (0-31); Albumin Level 3.9 g/dL (3.5-5.0); Alkaline Phosphatase 100 U/L (39-117); Anion Gap 16 (12-20); Aspartate Amino Transferase 11 U/L (5-31); Bilirubin Total 0.1 mg/dL (0.0-1.0); Blood Urea Nitrogen 12 mg/dL (9-16); Calcium 8.6 mg/dL (8.4-10.2); Carbon Dioxide 22 mmol/L (22-29); Chloride 107 mmol/L (96-108); Creatinine Clr Calc Pharmacy 119.3; Estimated Glomerular Filt Rate > 60; Ethanol < 10 mg/dL; Glucose Random 89 mg/dL (60-115); Potassium 3.9 mmol/L (3.3-5.1); Salicylate < 5.0 mg/dL (15-30); Sodium 141 mmol/L (135-145); Total Protein 6.8 g/dL (6.5-8.0)
[2023-04-14 14:52] VITALS: BP 160/87; PULSE 93; RESP 18; TEMP 36.3; O2SAT 97
[2023-04-14 14:54] LABS: COVID-19 Test Negative (Negative); IDNOW Serial# 6674DD1D
--- NOTE | 2023-04-14 15:40 | PC.NURSE ---
assumed care of patient 1500, pt sleeping, respirations even and unlabored, no apparent distress at this time
== END 2023-04-14 16:53 | disposition home or self-care (01) ==
PROVIDERS: Physician Assistant; Emergency Provider Emergency Medicine; PCP Physician Assistant
DX: F33.1 Major depressive disorder, recurrent, moderate (principal); R45.851 Suicidal ideations; R42 Dizziness and giddiness; F41.1 Generalized anxiety disorder; H53.2 Diplopia; F43.0 Acute stress reaction; Z20.822 Contact with and (suspected) exposure to COVID-19; Z20.828 Contact with and (suspected) exposure to other viral communicable diseases; Z79.899 Other long term (current) drug therapy
CPT/HCPCS: 36415; 70450; 80053; 80143; 80156; 80179; 80307; 81001; 81025; 85025; 87635; 99285; S9485

== ENCOUNTER 2023-06-19 22:45 | Emergency (ER) | payer OTHER, SELFPAY ==
--- NOTE | 2023-06-19 | ECG_ITS ---
Test Reason : CHEST PAIN Blood Pressure : / mmHG Vent. Rate : 091 BPM Atrial Rate : 091 BPM P-R Int : 182 ms QRS Dur : 092 ms QT Int : 364 ms P-R-T Axes : 031 -25 027 degrees QTc Int : 447 ms Normal sinus rhythm RSR' or QR pattern in V1 suggests right ventricular conduction delay Left axis deviation Low voltage QRS Abnormal ECG When compared with ECG of 20-DEC-2022 10:28, Heart rate has increased Referred By: Generic ED Physician Electronically Signed By:CHERRY JACKSON MD
--- NOTE | ~2023-06-19 | XR_ITS ---
EXAMINATION: XR CHEST CLINICAL INFORMATION: Cough, chest pain COMPARISON: None available. TECHNIQUE: 2 views of the chest were obtained. FINDINGS: Lung volumes are symmetric. Central peribronchial thickening is noted. No definite consolidation. No evidence of pneumothorax or significant pleural effusion. Cardiac silhouette appears near the upper limits of normal in size. There is a dextroscoliosis of the thoracic spine. XR/XR chest 2V IMPRESSION: Central peribronchial thickening suggesting airways disease which may be acute or chronic. No definite consolidation.
[2023-06-19 22:55] VITALS: BP 123/88; BP 146/67; PULSE 110; PULSE 95; RESP 20; TEMP 36.6; O2SAT 95; BMI 48.4
[2023-06-19 23:02] VITALS: PULSE 92; RESP 20
[2023-06-19 23:11] LABS: MANUAL DIFF FLAG NO
[2023-06-19 23:14] LABS: Basophils Percent Auto 0.4 % (0-2); Eosinophils Absolute Auto 0.2 X10*3/uL (0.0-0.4); Eosinophils Percent Auto 2.2 % (0-4); Hematocrit 29.5 % (37.0-47.0); Hemoglobin 8.6 g/dl (12.0-16.0); Imm Gran Abs Auto 0.07 X10*3/uL (0.00-0.03); Imm Gran Pct Auto 0.8 % (0.0-0.4); Lymphocytes Percent Auto 21.8 % (20-40); Mean Corpuscular HGB Conc 29.2 g/dl (31.0-35.0); Mean Corpuscular Hemoglobin 22.2 pg (27.0-33.0); Mean Corpuscular Volume 76.2 fL (80.0-98.0); Monocytes Absolute Auto 0.6 X10*3/uL (0.1-1.2); Monocytes Percent Auto 6.4 % (2-11); Neutrophils Absolute Auto 6.3 x10*3/uL (2.0-8.3); Neutrophils Percent Auto 68.4 % (45-73); Platelet Count 221 X10*3/uL (160-400); Red Blood Count 3.87 X10*6/uL (4.20-5.50); Red Cell Distribution Width 18.6 % (11.0-16.0); White Blood Count 9.3 X10*3/uL (4.8-10.8)
[2023-06-19 23:27] LABS: Alanine Aminotransferase 10 U/L (0-31); Albumin Level 3.7 g/dL (3.5-5.0); Alkaline Phosphatase 92 U/L (39-117); Anion Gap 11 (12-20); Aspartate Amino Transferase 13 U/L (5-31); Bilirubin Total 0.1 mg/dL (0.0-1.0); Blood Urea Nitrogen 10 mg/dL (9-16); Calcium 8.3 mg/dL (8.4-10.2); Carbon Dioxide 25 mmol/L (22-29); Chloride 107 mmol/L (96-108); Creatinine Clr Calc Pharmacy 132.9; Estimated Glomerular Filt Rate > 60; Glucose Random 112 mg/dL (60-115); Potassium 3.2 mmol/L (3.3-5.1); Sodium 140 mmol/L (135-145); Total Protein 6.7 g/dL (6.5-8.0)
[2023-06-19 23:33] LABS: Troponin-I High Sensitivity 5.4 ng/L (<3.5-17.0)
--- NOTE | 2023-06-19 23:36 | PC.NURSE ---
this rn assumed care of pt. pt a&ox4, respirations even and unlabored. pt biba from assisted reporting left sided chest pain radiating into the left shoulder since noon. pt denies reports shortness of breath, pt denies n/v/d. pt normal sinus on tele 93-96. IV established, labs obtained and sent at this time.
[2023-06-20 00:07] LABS: Lipase 15 U/L (8-78)
[2023-06-20 00:50] LABS: Influenza A PCR NEGATIVE (Negative); Influenza B PCR NEGATIVE (Negative); Resp Syncy Virus RNA Qual PCR NEGATIVE (Negative); SARS COV2 PCR INHOUSE NEGATIVE (Negative)
[2023-06-20] MEDS: Acetaminophen 325 MG TABLET 975 MG PO (00:55)
[2023-06-20 01:10] LABS: Appearance Urine Clear; Color Urine Yellow; Glucose Urine UA Negative (Negative); Leukocyte Esterase Urine Negative (Negative); Nitrite Urine Negative (Negative); Urine Blood Negative (Negative); Urine Ketones Negative (Negative); Urine Protein Negative (Neg-Trace)
[2023-06-20 01:13] LABS: Bacteria Urine None Seen (None Seen); Hyaline Casts Urine 0-2 /LPF (0-2); RBC Urine 0-2 /HPF (0-2); Squamous Epithelial Cell Urine 0-2 /HPF (0-2); WBC Urine 0-5 /HPF (0-5)
[2023-06-20 01:25] VITALS: BP 120/59; PULSE 86; RESP 18; TEMP 36.2; O2SAT 94
--- NOTE | 2023-06-20 01:59 | ED_ITS ---
HPI - Chest Pain General Chief Complaint: Chest Pain Stated Complaint: chest pain since noon Time Seen by Provider: 06/19/23 23:41 Source: patient Mode of arrival: ambulatory History of Present Illness HPI narrative: 53-year-old female with history of diabetes presents with cough, sore throat and congestion this started today at approximately 12:00 but denies any nausea or vomiting, abdominal pain or urinary symptoms. Related Data Home Medications Medication Instructions Recorded Confirmed fluticasone 100 mcg-salmeterol 50 1 puff inhalation BID 08/01/21 03/31/23 mcg/dose blistr powdr for inhalation (Advair Diskus) lactase 3,000 unit tablet (Lactaid) 3,000 unit PO QID PRN Lactose 08/01/21 03/31/23 Intolerance umeclidinium 62.5 mcg/actuation 1 inh inhalation QAM 08/01/21 03/31/23 blister powder for inhalation (Incruse Ellipta) cetirizine 10 mg tablet 10 mg PO DAILY 12/19/22 03/31/23 cholecalciferol (vitamin D3) 25 25 mcg PO QAM 12/19/22 03/31/23 mcg (1,000 unit) tablet docusate sodium 100 mg capsule 100 mg PO QAM 12/19/22 03/31/23 famotidine 40 mg tablet 40 mg PO BID 12/19/22 03/31/23 gabapentin 400 mg capsule 400 mg PO TID 12/19/22 03/31/23 metformin 500 mg tablet,extended 1,000 mg PO DAILY 12/19/22 03/31/23 release 24 hr pantoprazole 40 mg tablet,delayed 40 mg PO BID 12/19/22 03/31/23 release piroxicam 10 mg capsule 10 mg PO BID 12/19/22 03/31/23 fluticasone propionate 50 1 spray intranasal DAILY 12/20/22 03/31/23 mcg/actuation nasal spray,suspension hydroxyzine pamoate 50 mg capsule 100 mg PO TID PRN Anxiety 12/20/22 03/31/23 Previous Rx's Medication Instructions Recorded multivitamin (Daily-Emil tablet) 1 tab PO DAILY 30 days #30 tabs 08/15/21 dicyclomine 10 mg capsule 10 mg PO QIDACHS PRN IBS #0 caps 01/24/22 ipratropium 0.5 mg-albuterol 3 mg 3 ml inhalation Q4H PRN Shortness 01/24/22 (2.5 mg base)/3 mL nebulization Of Breath #90 mL soln ondansetron 4 mg disintegrating 8 mg (2 x 4 mg) translingual TIDWM 01/24/22 tablet #0 tabs quetiapine 100 mg tablet 100 mg PO BEDTIME #0 tabs 01/24/22 trazodone 100 mg tablet 200 mg (2 x 100 mg) PO BEDTIME #0 01/24/22 tabs carbamazepine 200 mg 800 mg (4 x 200 mg) PO BID 30 days 12/26/22 tablet,extended release,12 hr #240 tabs simethicone 80 mg chewable tablet 80 mg PO QIDWMHS PRN flatulence 30 12/26/22 (Gas Relief (simethicone)) days #60 tabs prazosin 5 mg capsule 5 mg PO BEDTIME 30 days #30 caps 01/01/23 Allergies Allergy/AdvReac Type Severity Reaction Status Date / Time sulfamethoxazole Allergy Intermediate Rash Verified 06/19/23 22:58 [From Bactrim] trimethoprim [From Bactrim] Allergy Intermediate Rash Verified 06/19/23 22:58 adhesive tape Allergy Rash Verified 06/19/23 22:58 Klemme And Derivatives Allergy Gastrointestinal Verified 06/19/23 22:58 Upset Benzodiazepines AdvReac Intermediate Irritable Verified 06/19/23 22:58 diazepam [From Valium] AdvReac Intermediate Irritable Verified 06/19/23 22:58 Review of Systems 2 Review of Systems: Pertinent positives and negatives as stated in [facility] Past Medical History Source: nursing notes reviewed Medical History GERD (gastroesophageal reflux disease) Sleep apnea Asthma Hearing loss Diabetes mellitus, type 2 Social History Social History Household Members: Other Household Members Other:: 2 Housing: Other Housing Other:: [facility] Do you presently have visiting nurse or other home services: Yes Alcohol intake: never Patient Tobacco Use Status: Never used Tobacco Smoked in Last 30 Days: Yes e-Cigarette/Vaping Use: Never Used Use of substances other than those prescribed or required for medical reasons: No Advance Directives: No Advance Directives Information Provided: No Patient : No service: No Sexual orientation: Straight/Heterosexual Physical Exam 2 Vital Signs: Vital Signs: Last Vital Signs Temp 97.2 F 06/20/23 01:25 Pulse 86 06/20/23 01:25 Resp 18 06/20/23 01:25 BP 120/59 L 06/20/23 01:25 Pulse Ox 94 06/20/23 01:25 O2 Del Method Room Air 06/20/23 01:25 BMI result Body Mass Index 48.4 VITAL SIGNS: Reviewed. GENERAL: Well developed, well nourished, in no acute distress. HEAD: Normocephalic/atraumatic EYES: PERRLA, EOMI EARS: Ext canals without abnormality, TMs non-bulging and non-erythematous NOSE: Nares patent bilateral OROPHARYNX: no oral lesions noted, posterior pharynx clear and non-erythematous without noted tonsillar enlargement/erythema/exudates NECK: Supple, no adenopathy LUNGS: Normal breath sounds. No adventitious sounds or accessory muscle use. SpO2<94> CARDIOVASCULAR: Regular rate and rhythm without noted murmurs, no JVD or lower extremity edema. ABDOMEN: Soft, non-tender, non-distended with bowel sounds. MUSCULOSKELETAL: No tenderness, deformities, or effusions noted on gross inspection. EXTREMITIES: No cyanosis, clubbing or edema. SKIN: Inspection of the skin reveals no rashes NEUROLOGIC: Alert and oriented x 4. Strength and sensation to light touch were grossly intact x 4. Medications Administered Discontinued Medications Generic Name Dose Route Start Last Admin Trade Name Freq PRN Reason Stop Dose Admin Acetaminophen 975 mg 06/20/23 00:03 06/20/23 00:55 Acetaminophen 325 Mg Tablet PO 06/20/23 00:04 975 mg ONCE ONE Administration Potassium Chloride 60 meq 06/20/23 02:02 06/20/23 02:24 Potassium Chloride Er 20 Meq Tab.Er.Prt PO 06/20/23 02:03 60 meq ONCE ONE Administration Medical Decision Making Medical Decision Making MDM Narrative: 53-year-old female with history and clinical presentation, DDX: Viral illness, pneumonia, lower clinical suspicion for ACS or gastritis. Reviewed all investigations and hematologic indices are chronically stable without leukocytosis or left shift, there is a stable microcytic anemia and patient reports that she is currently on her menstrual cycle. There is no thrombocytopenia. On review of chemistry indices there is no MAGALY but there is a noted low potassium level with normal magnesium. High sensitivity troponin is 5.4 without acute changes on EKG. Potassium levels were repleted with 60 mEq potassium chloride orally. Otherwise, there is no liver enzyme derangements and lipase is within normal limits. Urinalysis is negative for UTI or hematuria. Viral testing is negative for influenza/RSV/COVID. Awaiting chest x-ray which does not demonstrate any infiltrate although there is thickening suggestive of airway disease which could be viral in nature. Will not prescribe antibiotics at this time as patient is afebrile as well. Differential Diagnosis Differential Diagnoses: The differential diagnosis associated with the presentation includes Please see the discussion above Admission/Observation Consideration of admission/observation: Escalation of care including admission/observation considered Please see the discussion above Lab Data MDM Lab Attestation statement: I reviewed the patient's lab results. Please see the discussion above 06/19/23 23:07 06/19/23 23:07 Labs: Lab Results 06/19/23 06/20/23 06/20/23 Range/Units 23:07 00:05 01:01 WBC 9.3 (4.8-10.8) X10*3/uL RBC 3.87 L (4.20-5.50) X10*6/uL Hgb 8.6 L (12.0-16.0) g/dl Hct 29.5 L (37.0-47.0) % MCV 76.2 L (80.0-98.0) fL MCH 22.2 L (27.0-33.0) pg MCHC 29.2 L (31.0-35.0) g/dl RDW 18.6 H (11.0-16.0) % Plt Count 221 (160-400) X10*3/uL MPV 9.0 L (9.4-12.3) fL Immature Gran % (Auto) 0.8 H (0.0-0.4) % Neut % (Auto) 68.4 (45-73) % Lymph % (Auto) 21.8 (20-40) % [place] % (Auto) 6.4 (2-11) % Eos % (Auto) 2.2 (0-4) % Baso % (Auto) 0.4 (0-2) % Lymph # (Auto) 2.0 (1.2-4.9) X10*3/uL [place] # (Auto) 0.6 (0.1-1.2) X10*3/uL Eos # (Auto) 0.2 (0.0-0.4) X10*3/uL Baso # (Auto) 0.0 (0.0-0.2) X10*3/uL Abs Immat Gran (auto) 0.07 H (0.00-0.03) X10*3/uL Absolute Neuts (auto) 6.3 (2.0-8.3) x10*3/uL Absolute Nucleated RBC 0.000 (0.0-0.012) X10*3/uL Nucleated RBC % (auto) 0.0 (0.0-0.2) /100WBC Sodium 140 (135-145) mmol/L Potassium 3.2 L (3.3-5.1) mmol/L Chloride 107 (96-108) mmol/L Carbon Dioxide 25 (22-29) mmol/L Anion Gap 11 L (12-20) BUN 10 (9-16) mg/dL Creatinine 0.61 (0.5-1.4) mg/dL Estim Creat Clear Calc 132.9 Estimated GFR > 60 Random Glucose 112 (60-115) mg/dL Calcium 8.3 L (8.4-10.2) mg/dL Magnesium 2.0 (1.6-2.6) mg/dL Total Bilirubin 0.1 (0.0-1.0) mg/dL AST 13 (5-31) U/L ALT 10 (0-31) U/L Alkaline Phosphatase 92 (39-117) U/L Troponin I High Sens 5.4 (<3.5-17.0) ng/L Total Protein 6.7 (6.5-8.0) g/dL Albumin 3.7 (3.5-5.0) g/dL Lipase 15 (8-78) U/L Urine Color Yellow Urine Appearance Clear Urine pH 6.0 (5.0-9.0) Ur Specific [place] 1.010 (1.005-1.025) Urine Protein Negative (Neg-Trace) mg/dL Urine Glucose (UA) Negative (Negative) mg/dL Urine Ketones Negative (Negative) mg/dL Urine Blood Negative (Negative) Urine Nitrite Negative (Negative) Ur Leukocyte Esterase Negative (Negative) Urine RBC 0-2 (0-2) /HPF Urine WBC 0-5 (0-5) /HPF Ur Squamous Epith Cells 0-2 (0-2) /HPF Urine Bacteria None Seen (None Seen) Hyaline Casts 0-2 (0-2) /LPF Influenza Type A (PCR) NEGATIVE (Negative) Influenza Type B (PCR) NEGATIVE (Negative) RSV RNA Qual (PCR) NEGATIVE (Negative) SARS-CoV-2 RNA (RT-PCR) NEGATIVE (Negative) 06/20/23 Range/Units 02:23 WBC (4.8-10.8) X10*3/uL RBC (4.20-5.50) X10*6/uL Hgb (12.0-16.0) g/dl Hct (37.0-47.0) % MCV (80.0-98.0) fL MCH (27.0-33.0) pg MCHC (31.0-35.0) g/dl RDW (11.0-16.0) % Plt Count (160-400) X10*3/uL MPV (9.4-12.3) fL Immature Gran % (Auto) (0.0-0.4) % Neut % (Auto) (45-73) % Lymph % (Auto) (20-40) % [place] % (Auto) (2-11) % Eos % (Auto) (0-4) % Baso % (Auto) (0-2) % Lymph # (Auto) (1.2-4.9) X10*3/uL [place] # (Auto) (0.1-1.2) X10*3/uL Eos # (Auto) (0.0-0.4) X10*3/uL Baso # (Auto) (0.0-0.2) X10*3/uL Abs Immat Gran (auto) (0.00-0.03) X10*3/uL Absolute Neuts (auto) (2.0-8.3) x10*3/uL Absolute Nucleated RBC (0.0-0.012) X10*3/uL Nucleated RBC % (auto) (0.0-0.2) /100WBC Sodium (135-145) mmol/L Potassium (3.3-5.1) mmol/L Chloride (96-108) mmol/L Carbon Dioxide (22-29) mmol/L Anion Gap (12-20) BUN (9-16) mg/dL Creatinine (0.5-1.4) mg/dL Estim Creat Clear Calc Estimated GFR Random Glucose (60-115) mg/dL Calcium (8.4-10.2) mg/dL Magnesium (1.6-2.6) mg/dL Total Bilirubin (0.0-1.0) mg/dL AST (5-31) U/L ALT (0-31) U/L Alkaline Phosphatase (39-117) U/L Troponin I High Sens 6.7 (<3.5-17.0) ng/L Total Protein (6.5-8.0) g/dL Albumin (3.5-5.0) g/dL Lipase (8-78) U/L Urine Color Urine Appearance Urine pH (5.0-9.0) Ur Specific [place] (1.005-1.025) Urine Protein (Neg-Trace) mg/dL Urine Glucose (UA) (Negative) mg/dL Urine Ketones (Negative) mg/dL Urine Blood (Negative) Urine Nitrite (Negative) Ur Leukocyte Esterase (Negative) Urine RBC (0-2) /HPF Urine WBC (0-5) /HPF Ur Squamous Epith Cells (0-2) /HPF Urine Bacteria (None Seen) Hyaline Casts (0-2) /LPF Influenza Type A (PCR) (Negative) Influenza Type B (PCR) (Negative) RSV RNA Qual (PCR) (Negative) SARS-CoV-2 RNA (RT-PCR) (Negative) Independent Interpretation I performed an independent interpretation of an: EKG Interpretation: Normal sinus rhythm, HR-91, no STEMI, [place]/QRS/QTC is within normal limits. Radiology Impression Discussion of test interpretation with radiology: I have reviewed the radiologist's reading. Radiologist Impression: Please see the discussion above External Record Review External record reviewed: Outpatient record, Prior outpatient labs and Prior outpatient radiology Chronic Conditions Patient?s care impacted by: Diabetes Discharge Plan Discharge Clinical Impression: Viral illness Patient Disposition: Home, Self-Care Instructions: Viral Syndrome (ED) Additional Instructions: 1. Resume all home medications as prescribed. 2. Recommend [id number] Tylenol/ibuprofen as needed for body aches, headaches, continue to stay well hydrated and get plenty of rest. 3. Follow-up with your primary care doctor in the next 1-2 days. Return to the ER for any worsening symptoms. Prescriptions: No Action ipratropium-albuterol 0.5 mg-3 mg(2.5 mg base)/3 mL Solution For Nebulization 3 ml inhalation Q4H PRN (Reason: Shortness Of Breath) Qty: 90 0RF dicyclomine 10 mg Capsule 10 mg PO QIDACHS PRN (Reason: IBS) Qty: 0 0RF quetiapine 100 mg Tablet 100 mg PO BEDTIME Qty: 0 0RF trazodone 100 mg Tablet 200 mg PO BEDTIME Qty: 0 0RF ondansetron 4 mg Tablet,Disintegrating 8 mg translingual TIDWM Qty: 0 0RF fluticasone propion-salmeterol [Advair Diskus] 100-50 mcg/dose blister with device 1 puff inhalation BID lactase [Lactaid] 3,000 unit Tablet 3,000 unit PO QID PRN (Reason: Lactose Intolerance) Incruse Ellipta 62.5 mcg/actuation Blister With Device 1 inh INHALATION QAM multivitamin [Daily-Emil] Tablet 1 tab PO DAILY 30 Days Qty: 30 0RF gabapentin 400 mg capsule 400 mg PO TID metformin 500 mg tablet extended release 24 hr 1,000 mg PO DAILY piroxicam 10 mg capsule 10 mg PO BID cholecalciferol (vitamin D3) 25 mcg (1,000 unit) tablet 25 mcg PO QAM cetirizine 10 mg tablet 10 mg PO DAILY famotidine 40 mg tablet 40 mg PO BID pantoprazole 40 mg tablet,delayed release (DR/EC) 40 mg PO BID docusate sodium 100 mg capsule 100 mg PO QAM hydroxyzine pamoate 50 mg capsule 100 mg PO TID PRN (Reason: Anxiety) fluticasone propionate 50 mcg/actuation spray,suspension 1 spray intranasal DAILY carbamazepine 200 mg Tablet Extended Release 12 Hr 800 mg PO BID 30 Days Qty: 240 0RF simethicone [Gas Relief (simethicone)] 80 mg Tablet,Chewable 80 mg PO QIDWMHS PRN (Reason: flatulence) 30 Days Qty: 60 0RF prazosin 5 mg capsule 5 mg PO BEDTIME 30 Days Qty: 30 0RF
[2023-06-20] MEDS: Potassium Chloride ER 20 MEQ TAB.ER.PRT 60 MEQ PO (02:24)
--- NOTE | 2023-06-20 02:25 | PC.NURSE ---
pt reports pain is 0/10 at this time. pt medicated per mar.
[2023-06-20 02:52] LABS: Troponin-I High Sensitivity 6.7 ng/L (<3.5-17.0)
[2023-06-20 05:16] VITALS: BP 146/88; PULSE 88; RESP 18; O2SAT 97
--- NOTE | 2023-06-20 05:16 | PC.NURSE ---
pt reports she will contact [facility] staff to assist her in getting a ride, pt states she will wait in waiting room.
== END 2023-06-20 05:38 | disposition home or self-care (01) ==
PROVIDERS: Emergency Provider Student in an Organized Health Care Education/Training Program
DX: B34.9 Viral infection, unspecified (principal); R07.89 Other chest pain; R05.9 Cough, unspecified; J02.9 Acute pharyngitis, unspecified; Z20.822 Contact with and (suspected) exposure to COVID-19; Z20.828 Contact with and (suspected) exposure to other viral communicable diseases; Z79.899 Other long term (current) drug therapy
CPT/HCPCS: 0241U; 36415; 71046; 80053; 81001; 83690; 83735; 84484; 85025; 93005; 99284; 99285

== ENCOUNTER 2023-07-27 13:02 | Emergency (ER) | payer OTHER, SELFPAY ==
--- NOTE | 2023-07-27 13:10 | ED.GENADULT ---
HPI - General Adult General Chief complaint: Upper Respiratory Symptoms Stated complaint: PNEUMONIA Time Seen by Provider: 07/27/23 13:10 Source: patient and EMS Mode of arrival: EMS Limitations: no limitations History of Present Illness HPI narrative: Patient is a 53 year old assigned female at with a history of DM and bipolar disorder presenting to the emergency department today with a persistent cough. Patient states that over the last few days she has had persistent cough. Patient denies any dizziness, lightheadedness, abdominal pain, nausea, vomiting, fever, chills, blurry vision, double vision, loss of vision, chest pain, difficulty breathing, shortness of breath, back pain, night sweats, pain with urination, increased urinary frequency, increased urinary urgency, blood in her urine or stool, syncope or a near syncopal episode, recent trauma or falls, bowel incontinence, bladder incontinence, bowel retention, bladder retention, or any other complaints at this time. Onset (ago): day(s) Severity: mild Severity scale (1-10): 2 Relieving factors: none Exacerbating factors: none Associated symptoms: cough Treatments prior to arrival: none Related Data Home Medications Medication Instructions Recorded Confirmed fluticasone 100 mcg-salmeterol 50 1 puff inhalation BID 08/01/21 03/31/23 mcg/dose blistr powdr for inhalation (Advair Diskus) lactase 3,000 unit tablet (Lactaid) 3,000 unit PO QID PRN Lactose 08/01/21 03/31/23 Intolerance umeclidinium 62.5 mcg/actuation 1 inh inhalation QAM 08/01/21 03/31/23 blister powder for inhalation (Incruse Ellipta) cetirizine 10 mg tablet 10 mg PO DAILY 12/19/22 03/31/23 cholecalciferol (vitamin D3) 25 25 mcg PO QAM 12/19/22 03/31/23 mcg (1,000 unit) tablet docusate sodium 100 mg capsule 100 mg PO QAM 12/19/22 03/31/23 famotidine 40 mg tablet 40 mg PO BID 12/19/22 03/31/23 gabapentin 400 mg capsule 400 mg PO TID 12/19/22 03/31/23 metformin 500 mg tablet,extended 1,000 mg PO DAILY 12/19/22 03/31/23 release 24 hr pantoprazole 40 mg tablet,delayed 40 mg PO BID 12/19/22 03/31/23 release piroxicam 10 mg capsule 10 mg PO BID 12/19/22 03/31/23 fluticasone propionate 50 1 spray intranasal DAILY 12/20/22 03/31/23 mcg/actuation nasal spray,suspension hydroxyzine pamoate 50 mg capsule 100 mg PO TID PRN Anxiety 12/20/22 03/31/23 Previous Rx's Medication Instructions Recorded multivitamin (Daily-Emil tablet) 1 tab PO DAILY 30 days #30 tabs 08/15/21 dicyclomine 10 mg capsule 10 mg PO QIDACHS PRN IBS #0 caps 01/24/22 ipratropium 0.5 mg-albuterol 3 mg 3 ml inhalation Q4H PRN Shortness 01/24/22 (2.5 mg base)/3 mL nebulization Of Breath #90 mL soln ondansetron 4 mg disintegrating 8 mg (2 x 4 mg) translingual TIDWM 01/24/22 tablet #0 tabs quetiapine 100 mg tablet 100 mg PO BEDTIME #0 tabs 01/24/22 trazodone 100 mg tablet 200 mg (2 x 100 mg) PO BEDTIME #0 01/24/22 tabs carbamazepine 200 mg 800 mg (4 x 200 mg) PO BID 30 days 12/26/22 tablet,extended release,12 hr #240 tabs simethicone 80 mg chewable tablet 80 mg PO QIDWMHS PRN flatulence 30 12/26/22 (Gas Relief (simethicone)) days #60 tabs prazosin 5 mg capsule 5 mg PO BEDTIME 30 days #30 caps 01/01/23 Allergies Allergy/AdvReac Type Severity Reaction Status Date / Time sulfamethoxazole Allergy Intermediate Rash Verified 07/27/23 13:18 [From Bactrim] trimethoprim [From Bactrim] Allergy Intermediate Rash Verified 07/27/23 13:18 adhesive tape Allergy Rash Verified 07/27/23 13:18 [employer]atives Allergy Gastrointestinal Verified 07/27/23 13:18 Upset Benzodiazepines AdvReac Intermediate Irritable Verified 07/27/23 13:18 diazepam [From Valium] AdvReac Intermediate Irritable Verified 07/27/23 13:18 Review of Systems Constitutional: Constitutional: Reports no additional constitutional complaints, Denies chills, Denies fever(s) and Denies night sweats Eyes: Eyes: Reports no additional eye complaints, Denies blurry vision, Denies change in vision, Denies diplopia, Denies eye discharge, Denies loss of vision and Denies eye pain ENT: Denies dizziness Cardiovascular: Cardiovascular: Reports no additional cardiovascular complaints, Denies chest pain, Denies lightheadedness, Denies Loss of Consciousness and Denies dyspnea Respiratory: Respiratory: Reports no additional respiratory complaints, Reports cough and Denies dyspnea Gastrointestinal: Gastrointestinal: Reports no additional gastrointestinal complaints, Denies abdominal pain, Denies melena, Denies hematochezia, Denies change in bowel habits and Denies change in stool character Genitourinary: Genitourinary: Denies hematuria, Denies urinary frequency, Denies dysuria, Denies urinary incontinence, Denies urinary hesitancy and Denies urinary urgency Musculoskeletal: Musculoskeletal: Reports no additional musculoskeletal complaints, Denies numbness and Denies tingling Neurologic: Denies dizziness, Denies loss of vision, Denies numbness and Denies tingling Psychiatric: Psychiatric: Reports no additional psychiatric complaints Endocrine: Endocrine: Reports no additional endocrine complaints Hematologic/Lymphatic: Hematologic/Lymphatic: Reports no additional hematologic/lymphatic complaints Allergic/Immunologic: Allergic/Immunologic: Reports no additional allergic/immunologic complaints PMFSH Past Medical History Attestation statement: The following information was validated with the patient. Source: old records reviewed and nursing notes reviewed Onset Date is defined in the Problem List Problems that require an onset date and time if occurred within 24 hrs of arrival to the ED Aortic Dissection and Rupture; Neurologic impairment; Cardiopulmonary Arrest; Endotracheal Intubation; Insertion or Replacement of Mechanical Circulatory Assist Device Medical History GERD (gastroesophageal reflux disease) Sleep apnea Asthma Hearing loss Diabetes mellitus, type 2 Social History Social History Household Members: Other Household Members Other:: 2 Housing: Other Housing Other:: Service Net alf Do you presently have visiting nurse or other home services: Yes Alcohol intake: never Patient Tobacco Use Status: Never used Tobacco e-Cigarette/Vaping Use: Never Used Advance Directives: No Advance Directives Information Provided: Yes service: No Sexual orientation: Straight/Heterosexual Physical Exam ED Vital Signs: Vital Signs - 24 hr 07/27/23 13:18 07/27/23 14:15 Temperature 98.5 F Pulse Rate 80 81 Respiratory Rate 18 22 H Blood Pressure 146/86 H Pulse Oximetry 93 Oxygen Delivery Method Room Air BMI result Body Mass Index 42.2 Const General: cooperative, no acute distress, alert and awake Nutritional Appearance: well nourished Orientation/consciousness: patient oriented x3 Limitations: no limitations HENMT Head: Yes normal to inspection and Yes atraumatic Ears: hearing grossly normal bilaterally and external ears normal General nose exam: Normal external nose present, no nasal discharge noted and no epistaxis Face and sinus: Yes normal facial exam, No abrasion and No laceration Mouth: Normal oral and palatal mucosa present, no drooling and no muffled voice Eyes General: appearance normal, both eyes and all related structures Periorbital: periorbital findings normal Eyelids: Yes eyelids normal Conjunctivae: conjunctivae normal Pupils: Equal, round and reactive pupils present EOM: EOMs intact bilaterally Neck Neck: Yes normal visual inspection, Yes full ROM and Yes no lymphadenopathy Chest Chest palpation & inspection: normal inspection of the chest Resp Effort & Inspection: normal respiratory effort and able to speak in complete sentences Auscultation: clear to auscultation bilaterally Cardio Rate: regular rate Rhythm: regular rhythm GI Inspection: Yes normal to inspection Neuro General: patient oriented x3 and moves all extremities Cranial nerves: Yes Equal, round and reactive pupils present Cognition (Neuro): normal cognition Motor exam (neuro): 5/5 motor strength present throughout Sensory Exam: Normal double simultaneous stimulation for sensation Coordination: [id number] test normal Extrem General: Yes normal to inspection, Yes full ROM and Yes capillary refill normal Psych Appearance: grossly normal Mental Status: mental status grossly normal Affect: normal affect Attitude: cooperative Thought process: Normal thought process present Thought content: Normal thought content present Insight: Good insight present (Psych) Medications Administered Discontinued Medications Generic Name Dose Route Start Last Admin Trade Name Freq PRN Reason Stop Dose Admin Albuterol Sulfate 2.5 mg/ 0 mg 07/27/23 14:08 07/27/23 14:13 Albuterol/Ipratropium 3 ml INHALE 07/27/23 14:09 2.5 dose ONCE ONE Administration Hydroxyzine HCl 100 mg 07/27/23 14:35 07/27/23 14:41 Hydroxyzine Hcl 50 Mg Tablet PO 07/27/23 14:36 100 mg ONCE ONE Administration Sodium Chloride 1,000 mls @ 999 mls/hr 07/27/23 13:30 07/27/23 16:20 Ns IV 07/27/23 14:30 Infused .Q1H1M DORCAS Infusion Ketorolac Tromethamine 15 mg 07/27/23 13:20 07/27/23 14:52 Ketorolac Tromethamine 15 Mg/Ml Vial IVPUSH 07/27/23 13:21 15 mg ONCE ONE Administration Methylprednisolone Sodium Succinate 60 mg 07/27/23 13:20 07/27/23 14:54 Methylprednisolone Sod Succ 125 Mg/2 Ml Vial IVPUSH 07/27/23 13:21 60 mg ONCE ONE Administration Medical Decision Making Medical Decision Making [facility] Narrative: Patient is a 53 year old assigned female at with a history of bipolar disorder and DM presenting to the emergency department today with a persistent cough. Patient's physical exam was unremarkable. Patient's blood work was unremarkable. Patient's urine showed no acute process. Patient's chest x-ray showed no acute process. Patient's COVID-19 and influenza tests were negative. Patient's RSV swab was positive. I explained my physical exam findings as well as all test results to the patient. I answered all questions asked by the patient. I stressed the importance of the patient taking her medication as prescribed. I stressed the importance of the patient following up with her primary care provider. I stressed the importance of the patient returning to the emergency department immediately if her symptoms were to worsen or if she were to develop any dizziness, shortness of breath, difficulty breathing, chest pain, blurry vision, loss of vision, nausea, vomiting, abdominal pain, fever, chills, back pain, or any other complaints. Patient verbalized agreement and understanding with this treatment plan and discharge. Differential Diagnosis Differential Diagnoses: The differential diagnosis associated with the presentation includes RSV COVID-19 Influenza Viral illness Cough Admission/Observation Consideration of admission/observation: Escalation of care including admission/observation considered Patient would have been admitted to the hospital had her work up had any findings where hospital admission was appropriate and her clinical presentation warranted hospital admission. Lab Data [facility] Lab Attestation statement: I reviewed the patient's lab results. My interpretation of these results are in the [facility] Rationale portion of this note. 07/27/23 13:33 07/27/23 13:33 Labs: Lab Results 07/27/23 07/27/23 Range/Units 13:33 13:34 WBC 6.8 (4.8-10.8) X10*3/uL RBC 4.03 L (4.20-5.50) X10*6/uL Hgb 9.3 L (12.0-16.0) g/dl Hct 30.7 L (37.0-47.0) % MCV 76.2 L (80.0-98.0) fL MCH 23.1 L (27.0-33.0) pg MCHC 30.3 L (31.0-35.0) g/dl RDW 18.5 H (11.0-16.0) % Plt Count 189 (160-400) X10*3/uL MPV 9.2 L (9.4-12.3) fL Immature Gran % (Auto) 0.6 H (0.0-0.4) % Neut % (Auto) 71.3 (45-73) % Lymph % (Auto) 14.7 L (20-40) % [place] % (Auto) 10.3 (2-11) % Eos % (Auto) 2.8 (0-4) % Baso % (Auto) 0.3 (0-2) % Lymph # (Auto) 1.0 L (1.2-4.9) X10*3/uL [place] # (Auto) 0.7 (0.1-1.2) X10*3/uL Eos # (Auto) 0.2 (0.0-0.4) X10*3/uL Baso # (Auto) 0.0 (0.0-0.2) X10*3/uL Abs Immat Gran (auto) 0.04 H (0.00-0.03) X10*3/uL Absolute Neuts (auto) 4.8 (2.0-8.3) x10*3/uL Absolute Nucleated RBC 0.000 (0.0-0.012) X10*3/uL Nucleated RBC % (auto) 0.0 (0.0-0.2) /100WBC Sodium 139 (135-145) mmol/L Potassium 3.9 D (3.3-5.1) mmol/L Chloride 104 (96-108) mmol/L Carbon Dioxide 27 (22-29) mmol/L Anion Gap 12 (12-20) BUN 14 (9-16) mg/dL Creatinine 0.64 (0.5-1.4) mg/dL Estim Creat Clear Calc 116.7 Estimated GFR > 60 Random Glucose 88 (60-115) mg/dL Lactic Acid 0.9 (0.5-2.0) mmol/L Calcium 9.2 D (8.4-10.2) mg/dL Magnesium 2.3 (1.6-2.6) mg/dL Total Bilirubin 0.3 (0.0-1.0) mg/dL AST 22 (5-31) U/L ALT 16 (0-31) U/L Alkaline Phosphatase 125 H (39-117) U/L Total Protein 7.4 (6.5-8.0) g/dL Albumin 4.1 (3.5-5.0) g/dL Urine Color Yellow Urine Appearance Clear Urine pH 6.0 (5.0-9.0) Ur Specific [place] <= 1.005 (1.005-1.025) Urine Protein Negative (Neg-Trace) mg/dL Urine Glucose (UA) Negative (Negative) mg/dL Urine Ketones Negative (Negative) mg/dL Urine Blood Negative (Negative) Urine Nitrite Negative (Negative) Ur Leukocyte Esterase Negative (Negative) Influenza Type A (PCR) NEGATIVE (Negative) Influenza Type B (PCR) NEGATIVE (Negative) RSV RNA Qual (PCR) POSITIVE A (Negative) SARS-CoV-2 RNA (RT-PCR) NEGATIVE (Negative) Independent Interpretation I performed an independent interpretation of an: Plain X-Ray Interpretation: My interpretation is in agreement with the radiologist's impression of this imaging study. EXAMINATION: XR CHEST CLINICAL INFORMATION: Cough and shortness of breath COMPARISON: 06/20/2023 TECHNIQUE: Frontal view of the chest was obtained. FINDINGS: Biconvex thoracolumbar scoliosis again noted. Heart size within normal limits. Peribronchial thickening is again noted. No infiltrates, pleural effusions or suspicious lung masses are seen. No interval change when compared to the prior study. XR/XR chest 1V IMPRESSION: Unchanged peribronchial thickening without focal infiltrate. Dictated By: Hakeem Gerber MD Signed By: Electronically signed by Hakeem Gerber MD 07/27/23 0548 Radiology Impression Discussion of test interpretation with radiology: I have reviewed the radiologist's reading. Independent Historian Clinical information obtained from an independent historian. History obtained from or confirmed by: EMS (EMS provided additional history and confirmed the history provided by the patient.) and Other (Behavioral health staff provided additional history and confirmed the history provided by the patient.) Discharge Plan Discharge Clinical Impression: Respiratory syncytial virus (RSV) Patient Disposition: Home, Self-Care Instructions: Respiratory Syncytial Virus (ED) Additional Instructions: Follow up with your primary care provider. Return to the emergency department immediately if your symptoms worsen or if you develop any dizziness, shortness of breath, difficulty breathing, chest pain, blurry vision, loss of vision, nausea, vomiting, abdominal pain, fever, chills, back pain, or any other complaints. Prescriptions: No Action ipratropium-albuterol 0.5 mg-3 mg(2.5 mg base)/3 mL Solution For Nebulization 3 ml inhalation Q4H PRN (Reason: Shortness Of Breath) Qty: 90 0RF dicyclomine 10 mg Capsule 10 mg PO QIDACHS PRN (Reason: IBS) Qty: 0 0RF quetiapine 100 mg Tablet 100 mg PO BEDTIME Qty: 0 0RF trazodone 100 mg Tablet 200 mg PO BEDTIME Qty: 0 0RF ondansetron 4 mg Tablet,Disintegrating 8 mg translingual TIDWM Qty: 0 0RF fluticasone propion-salmeterol [Advair Diskus] 100-50 mcg/dose blister with device 1 puff inhalation BID lactase [Lactaid] 3,000 unit Tablet 3,000 unit PO QID PRN (Reason: Lactose Intolerance) Incruse Ellipta 62.5 mcg/actuation Blister With Device 1 inh INHALATION QAM multivitamin [Daily-Emil] Tablet 1 tab PO DAILY 30 Days Qty: 30 0RF gabapentin 400 mg capsule 400 mg PO TID metformin 500 mg tablet extended release 24 hr 1,000 mg PO DAILY piroxicam 10 mg capsule 10 mg PO BID cholecalciferol (vitamin D3) 25 mcg (1,000 unit) tablet 25 mcg PO QAM cetirizine 10 mg tablet 10 mg PO DAILY famotidine 40 mg tablet 40 mg PO BID pantoprazole 40 mg tablet,delayed release (DR/EC) 40 mg PO BID docusate sodium 100 mg capsule 100 mg PO QAM hydroxyzine pamoate 50 mg capsule 100 mg PO TID PRN (Reason: Anxiety) fluticasone propionate 50 mcg/actuation spray,suspension 1 spray intranasal DAILY carbamazepine 200 mg Tablet Extended Release 12 Hr 800 mg PO BID 30 Days Qty: 240 0RF simethicone [Gas Relief (simethicone)] 80 mg Tablet,Chewable 80 mg PO QIDWMHS PRN (Reason: flatulence) 30 Days Qty: 60 0RF prazosin 5 mg capsule 5 mg PO BEDTIME 30 Days Qty: 30 0RF Referrals: Melissa Castrejon PA [Primary Care Provider] - Interventions: ED Discharge Assessment Last Done: 07/27/23 17:03 Print Language: [place]
[2023-07-27 13:11] VITALS: BP 127/68; PULSE 84; O2SAT 95
[2023-07-27 13:18] VITALS: BP 146/86; PULSE 80; RESP 18; TEMP 36.9; O2SAT 93; BMI 42.2
[2023-07-27 14:15] VITALS: PULSE 81; RESP 22; O2SAT 93
== END 2023-07-27 20:28 | disposition home or self-care (01) ==
PROVIDERS: Emergency Provider Student in an Organized Health Care Education/Training Program; PCP Physician Assistant
DX: R05.9 Cough, unspecified (principal); B97.4 Respiratory syncytial virus as the cause of diseases classified elsewhere; Z20.822 Contact with and (suspected) exposure to COVID-19; Z20.828 Contact with and (suspected) exposure to other viral communicable diseases
CPT/HCPCS: 0241U; 71045; 80053; 81003; 83605; 83735; 85025; 87040; 94640; 96361; 96374; 96375; 99284; J1885; J2930

== ENCOUNTER 2023-10-16 23:29 | Emergency (ER) | payer OTHER, SELFPAY ==
--- NOTE | ~2023-10-16 | CT_ITS ---
EXAMINATION: CT head/brain wo IV con, CT cervical spine wo IV con INDICATION INFORMATION: Reason for Exam fall COMPARISON: CT head without contrast 04/14/2023 TECHNIQUE: Separate noncontrast CT examinations of the head and cervical spine were performed. Coronal and sagittal images were created for each examination at the technologist workstation. This CT examination was performed using dose optimization techniques as appropriate, variously including the following: *Automated exposure control *Adjustment of mA and/or kV according to patient size (this includes techniques or standardized protocols for targeted exams where dose is matched to indication/reason for exam; i.e. extremities or head) *Use of iterative reconstruction technique DLP: 1309.65 mGy-cm FINDINGS: Head: No acute osseous or soft tissue abnormality. Left temporoparietal ganesh hole. The mastoids are clear. Mild left maxillary sinus mucosal thickening. Dysplastic/hypoplastic appearance of the corpus callosum There is no evidence of acute intracranial hemorrhage or territorial infarction. No abnormal mass effect or midline shift is seen. [place] to white matter differentiation is well preserved. No extra-axial fluid collections are identified. No hydrocephalus. No significant volume loss. There is no abnormal attenuation within the brain parenchyma. Cervical spine: There is no evidence of acute cervical spine fracture. Vertebral bodies remain normal in height. Cervical straightening and rightward curvature. Mild multilevel cervical spondylosis. No pre- or paravertebral soft tissue abnormality is identified. Visualized portions of the lung apices are unremarkable. The thyroid gland is unremarkable. CT/CT head/brain wo IV con IMPRESSION: 1. No acute intracranial abnormality. 2. No cervical spine fracture or traumatic malalignment.
--- NOTE | ~2023-10-16 | CT_ITS ---
EXAMINATION: CT head/brain wo IV con, CT cervical spine wo IV con INDICATION INFORMATION: Reason for Exam fall COMPARISON: CT head without contrast 04/14/2023 TECHNIQUE: Separate noncontrast CT examinations of the head and cervical spine were performed. Coronal and sagittal images were created for each examination at the technologist workstation. This CT examination was performed using dose optimization techniques as appropriate, variously including the following: *Automated exposure control *Adjustment of mA and/or kV according to patient size (this includes techniques or standardized protocols for targeted exams where dose is matched to indication/reason for exam; i.e. extremities or head) *Use of iterative reconstruction technique DLP: 1309.65 mGy-cm FINDINGS: Head: No acute osseous or soft tissue abnormality. Left temporoparietal ganesh hole. The mastoids are clear. Mild left maxillary sinus mucosal thickening. Dysplastic/hypoplastic appearance of the corpus callosum There is no evidence of acute intracranial hemorrhage or territorial infarction. No abnormal mass effect or midline shift is seen. [place] to white matter differentiation is well preserved. No extra-axial fluid collections are identified. No hydrocephalus. No significant volume loss. There is no abnormal attenuation within the brain parenchyma. Cervical spine: There is no evidence of acute cervical spine fracture. Vertebral bodies remain normal in height. Cervical straightening and rightward curvature. Mild multilevel cervical spondylosis. No pre- or paravertebral soft tissue abnormality is identified. Visualized portions of the lung apices are unremarkable. The thyroid gland is unremarkable. CT/CT cervical spine wo IV con IMPRESSION: 1. No acute intracranial abnormality. 2. No cervical spine fracture or traumatic malalignment.
[2023-10-16 23:37] VITALS: BP 136/84; PULSE 79; O2SAT 98; BMI 41.9
[2023-10-16 23:49] VITALS: BP 140/82; PULSE 84; RESP 16; TEMP 36.5; O2SAT 95
--- NOTE | 2023-10-17 00:04 | ECG_ITS ---
Test Reason : FALL Blood Pressure : / mmHG Vent. Rate : 078 BPM Atrial Rate : 078 BPM P-R Int : 188 ms QRS Dur : 086 ms QT Int : 394 ms P-R-T Axes : 028 -24 027 degrees QTc Int : 449 ms Normal sinus rhythm Anterior infarct (cited on or before 17-OCT-2023) Abnormal ECG When compared with ECG of 19-JUN-2023 23:03, No significant change was found Referred By: Leilani Murcia Electronically Signed By:Jose Leal
--- NOTE | 2023-10-17 00:13 | ED_ITS ---
HPI - Fall General Chief Complaint: Fall Stated Complaint: fall Time Seen by Provider: 10/17/23 00:03 Source: patient and EMS Mode of arrival: EMS Limitations: no limitations History of Present Illness HPI Narrative: Patient comes to the emergency room via ambulance from a psychiatric facility. Patient states that she had a mechanical fall today. Patient states that she is supposed to use a walker, has chronic unsteady gait, patient tripped without using it. Patient states that she hit her head, did not lose consciousness, patient is not on blood thinners. However, patient complaining of mild headache. Patient states that after the fall she started having vertigo which she has had in the past. Patient denies chest pain or shortness of breath. Patient states that she hit the left side of her face but does not hurt too much. Related Data Home Medications Medication Instructions Recorded Confirmed fluticasone 100 mcg-salmeterol 50 1 puff inhalation BID 08/01/21 03/31/23 mcg/dose blistr powdr for inhalation (Advair Diskus) lactase 3,000 unit tablet (Lactaid) 3,000 unit PO QID PRN Lactose 08/01/21 03/31/23 Intolerance umeclidinium 62.5 mcg/actuation 1 inh inhalation QAM 08/01/21 03/31/23 blister powder for inhalation (Incruse Ellipta) cetirizine 10 mg tablet 10 mg PO DAILY 12/19/22 03/31/23 cholecalciferol (vitamin D3) 25 25 mcg PO QAM 12/19/22 03/31/23 mcg (1,000 unit) tablet docusate sodium 100 mg capsule 100 mg PO QAM 12/19/22 03/31/23 famotidine 40 mg tablet 40 mg PO BID 12/19/22 03/31/23 gabapentin 400 mg capsule 400 mg PO TID 12/19/22 03/31/23 metformin 500 mg tablet,extended 1,000 mg PO DAILY 12/19/22 03/31/23 release 24 hr pantoprazole 40 mg tablet,delayed 40 mg PO BID 12/19/22 03/31/23 release piroxicam 10 mg capsule 10 mg PO BID 12/19/22 03/31/23 fluticasone propionate 50 1 spray intranasal DAILY 12/20/22 03/31/23 mcg/actuation nasal spray,suspension hydroxyzine pamoate 50 mg capsule 100 mg PO TID PRN Anxiety 12/20/22 03/31/23 Previous Rx's Medication Instructions Recorded multivitamin (Daily-Emil tablet) 1 tab PO DAILY 30 days #30 tabs 08/15/21 dicyclomine 10 mg capsule 10 mg PO QIDACHS PRN IBS #0 caps 01/24/22 ipratropium 0.5 mg-albuterol 3 mg 3 ml inhalation Q4H PRN Shortness 01/24/22 (2.5 mg base)/3 mL nebulization Of Breath #90 mL soln ondansetron 4 mg disintegrating 8 mg (2 x 4 mg) translingual TIDWM 01/24/22 tablet #0 tabs quetiapine 100 mg tablet 100 mg PO BEDTIME #0 tabs 01/24/22 trazodone 100 mg tablet 200 mg (2 x 100 mg) PO BEDTIME #0 01/24/22 tabs carbamazepine 200 mg 800 mg (4 x 200 mg) PO BID 30 days 12/26/22 tablet,extended release,12 hr #240 tabs simethicone 80 mg chewable tablet 80 mg PO QIDWMHS PRN flatulence 30 12/26/22 (Gas Relief (simethicone)) days #60 tabs prazosin 5 mg capsule 5 mg PO BEDTIME 30 days #30 caps 01/01/23 Allergies Allergy/AdvReac Type Severity Reaction Status Date / Time sulfamethoxazole Allergy Intermediate Rash Verified 07/27/23 13:18 [From Bactrim] trimethoprim [From Bactrim] Allergy Intermediate Rash Verified 07/27/23 13:18 adhesive tape Allergy Rash Verified 07/27/23 13:18 [place] And Derivatives Allergy Gastrointestinal Verified 07/27/23 13:18 Upset Benzodiazepines AdvReac Intermediate Irritable Verified 07/27/23 13:18 diazepam [From Valium] AdvReac Intermediate Irritable Verified 07/27/23 13:18 Review of Systems 2 Review of Systems: Constitutional : No Weight loss, No Fever, No Chills, No Night Sweats, No Fatigue, No Malaise ENT/Mouth : No Hearing loss, No Ear Pain, No Nasal Congestion, No Sinus Pain, No Hoarseness, No sore throat, No Rhinorrhea, No Swallowing Difficulty Eyes: No Eye Pain, No Swelling, No Redness, No Foreign Body, No Discharge, No Vision Changes Cardiovascular : No Chest Pain, No SOB, No Dyspnea on Exertion, No Orthopnea, No Edema, No Palpitations Respiratory : No Cough, No Sputum, No Wheezing, No Smoke Exposure, No Dyspnea Gastrointestinal : No Nausea, No Vomiting, No Diarrhea, No Constipation, No abdominal Pain, No Hematochezia, No Melena Genitourinary : no irregular bleeding, No Dysuria, No Urinary Frequency, No Hematuria, No Urinary Incontinence, No Urgency, No Flank Pain, No Urinary Flow Changes, No Hesitancy Musculoskeletal : No joint pain, No Myalgias, No Joint Swelling Skin : No Skin Lesions, No rash Neuro : No Weakness, No Numbness, No Paresthesias, No Loss of Consciousness, No Dizziness, complaining of mild Headache Psych : No Anxiety/Panic, No Depression, No SI/HI/AH/VH, No Social Issues, Heme/Lymph: No Bruising, No Bleeding,No Lymphadenopathy Endocrine : No Polyuria, No Polydipsia, No Temperature Intolerance [facility] Past Medical History Medical History GERD (gastroesophageal reflux disease) Sleep apnea Asthma Hearing loss Diabetes mellitus, type 2 Social History Social History Household Members: Other Household Members Other:: 2 Housing: Other Housing Other:: [facility] Do you presently have visiting nurse or other home services: Yes Alcohol intake: never Patient Tobacco Use Status: Never used Tobacco e-Cigarette/Vaping Use: Never Used Advance Directives: No Advance Directives Information Provided: Yes service: No Sexual orientation: Straight/Heterosexual Physical Exam 2 Vital Signs: Vital Signs: Last Vital Signs Temp 97.7 F 10/17/23 05:30 Pulse 82 10/17/23 05:30 Resp 20 10/17/23 05:30 BP 142/85 H 10/17/23 05:30 Pulse Ox 94 10/17/23 05:30 O2 Del Method Room Air 10/17/23 05:30 BMI result Body Mass Index 41.9 Const: Other: Appearance: Alert. Oriented X3. No acute distress. Eyes: Pupils equal, round and reactive to light. ENT: On C-spine precautions, no palpable step-offs, no ecchymosis in the face or neck Neck: Normal inspection. Neck supple. No lymph nodes noted. No crepitus CVS: Normal heart rate and rhythm. Pulses normal. Normal S1 and S2 Respiratory: No respiratory distress. Breath sounds normal. No Wheezing. No rales Abdomen: Soft and nontender. No rigidity. No distention. Skin: Skin warm and dry. Normal skin color. Normal skin turgor. Extremities: No lower extremity edema. No Lacerations. No Rash Neuro: Oriented X 3. No motor deficit. No sensory deficit. Moving all extremities. No slurred speech. CN 2 through 12 grossly intact Psych: calm, cooperative, normal affect Course Course Course Narrative: -patient complaining of dizziness, described as room spinning. Patient given p.o. meclizine, patient states she is allergic to diazepam -EKG labs and head CT pending Medications Administered Discontinued Medications Generic Name Dose Route Start Last Admin Trade Name Freq PRN Reason Stop Dose Admin Acetaminophen 975 mg 10/17/23 00:17 10/17/23 00:27 Acetaminophen 325 Mg Tablet PO 10/17/23 00:18 975 mg ONCE ONE Administration Meclizine HCl 50 mg 10/17/23 00:10 10/17/23 00:27 Meclizine Hcl 25 Mg Tablet PO 10/17/23 00:11 50 mg ONCE ONE Administration Medical Decision Making Medical Decision Making [facility] Narrative: -of note, shortly the system will be in down time, please see paper chart for remaining of medical decisions, results and discharge Differential Diagnosis Differential Diagnoses: The differential diagnosis associated with the presentation includes (Contusion, concussion) Admission/Observation Consideration of admission/observation: Escalation of care including admission/observation considered (Can patient's mechanism of injury and physical presentation, patient considered) Lab Data 10/17/23 00:41 10/17/23 00:41 Labs: Lab Results 10/17/23 Range/Units 00:41 WBC 9.1 (4.8-10.8) X10*3/uL RBC 4.10 L (4.20-5.50) X10*6/uL Hgb 9.6 L (12.0-16.0) g/dl Hct 31.9 L (37.0-47.0) % MCV 77.8 L (80.0-98.0) fL MCH 23.4 L (27.0-33.0) pg MCHC 30.1 L (31.0-35.0) g/dl RDW 17.9 H (11.0-16.0) % Plt Count 223 (160-400) X10*3/uL MPV 8.8 L (9.4-12.3) fL Immature Gran % (Auto) 0.7 H (0.0-0.4) % Neut % (Auto) 64.6 (45-73) % Lymph % (Auto) 25.6 (20-40) % [place] % (Auto) 6.2 (2-11) % Eos % (Auto) 2.6 (0-4) % Baso % (Auto) 0.3 (0-2) % Lymph # (Auto) 2.3 (1.2-4.9) X10*3/uL [place] # (Auto) 0.6 (0.1-1.2) X10*3/uL Eos # (Auto) 0.2 (0.0-0.4) X10*3/uL Baso # (Auto) 0.0 (0.0-0.2) X10*3/uL Abs Immat Gran (auto) 0.06 H (0.00-0.03) X10*3/uL Absolute Neuts (auto) 5.9 (2.0-8.3) x10*3/uL Absolute Nucleated RBC 0.000 (0.0-0.012) X10*3/uL Nucleated RBC % (auto) 0.0 (0.0-0.2) /100WBC Sodium 139 (135-145) mmol/L Potassium 3.6 (3.3-5.1) mmol/L Chloride 106 (96-108) mmol/L Carbon Dioxide 25 (22-29) mmol/L Anion Gap 12 (12-20) BUN 14 (9-16) mg/dL Creatinine 0.62 (0.5-1.4) mg/dL Estim Creat Clear Calc 133.8 Estimated GFR > 60 Random Glucose 97 (60-115) mg/dL Calcium 8.9 (8.4-10.2) mg/dL Troponin I High Sens 4.2 (<3.5-17.0) ng/L Critical Care Time Critical Care Time Critical Care Time: Yes Total Critical Care Time: 45 Attestation: I have personally provided critical care time. Time includes review of lab data, radiology results, discussion with consultants, and monitoring for potential decompensation. Intervention performed as documented. Discharge Plan Discharge Clinical Impression: Fall, Contusion Patient Disposition: Home, Self-Care Prescriptions: No Action ipratropium-albuterol 0.5 mg-3 mg(2.5 mg base)/3 mL Solution For Nebulization 3 ml inhalation Q4H PRN (Reason: Shortness Of Breath) Qty: 90 0RF dicyclomine 10 mg Capsule 10 mg PO QIDACHS PRN (Reason: IBS) Qty: 0 0RF quetiapine 100 mg Tablet 100 mg PO BEDTIME Qty: 0 0RF trazodone 100 mg Tablet 200 mg PO BEDTIME Qty: 0 0RF ondansetron 4 mg Tablet,Disintegrating 8 mg translingual TIDWM Qty: 0 0RF fluticasone propion-salmeterol [Advair Diskus] 100-50 mcg/dose blister with device 1 puff inhalation BID lactase [Lactaid] 3,000 unit Tablet 3,000 unit PO QID PRN (Reason: Lactose Intolerance) Incruse Ellipta 62.5 mcg/actuation Blister With Device 1 inh INHALATION QAM multivitamin [Daily-Emil] Tablet 1 tab PO DAILY 30 Days Qty: 30 0RF gabapentin 400 mg capsule 400 mg PO TID metformin 500 mg tablet extended release 24 hr 1,000 mg PO DAILY piroxicam 10 mg capsule 10 mg PO BID cholecalciferol (vitamin D3) 25 mcg (1,000 unit) tablet 25 mcg PO QAM cetirizine 10 mg tablet 10 mg PO DAILY famotidine 40 mg tablet 40 mg PO BID pantoprazole 40 mg tablet,delayed release (DR/EC) 40 mg PO BID docusate sodium 100 mg capsule 100 mg PO QAM hydroxyzine pamoate 50 mg capsule 100 mg PO TID PRN (Reason: Anxiety) fluticasone propionate 50 mcg/actuation spray,suspension 1 spray intranasal DAILY carbamazepine 200 mg Tablet Extended Release 12 Hr 800 mg PO BID 30 Days Qty: 240 0RF simethicone [Gas Relief (simethicone)] 80 mg Tablet,Chewable 80 mg PO QIDWMHS PRN (Reason: flatulence) 30 Days Qty: 60 0RF prazosin 5 mg capsule 5 mg PO BEDTIME 30 Days Qty: 30 0RF
[2023-10-17] MEDS: Meclizine HCl 25 MG TABLET 50 MG PO (00:27)
[2023-10-17] MEDS: Acetaminophen 325 MG TABLET 975 MG PO (00:27)
[2023-10-17 00:45] LABS: MANUAL DIFF FLAG NO
[2023-10-17 00:47] LABS: Basophils Percent Auto 0.3 % (0-2); Eosinophils Absolute Auto 0.2 X10*3/uL (0.0-0.4); Eosinophils Percent Auto 2.6 % (0-4); Hematocrit 31.9 % (37.0-47.0); Hemoglobin 9.6 g/dl (12.0-16.0); Imm Gran Abs Auto 0.06 X10*3/uL (0.00-0.03); Imm Gran Pct Auto 0.7 % (0.0-0.4); Lymphocytes Absolute Auto 2.3 X10*3/uL (1.2-4.9); Lymphocytes Percent Auto 25.6 % (20-40); Mean Corpuscular HGB Conc 30.1 g/dl (31.0-35.0); Mean Corpuscular Hemoglobin 23.4 pg (27.0-33.0); Mean Corpuscular Volume 77.8 fL (80.0-98.0); Mean Platelet Volume 8.8 fL (9.4-12.3); Monocytes Absolute Auto 0.6 X10*3/uL (0.1-1.2); Monocytes Percent Auto 6.2 % (2-11); Neutrophils Absolute Auto 5.9 x10*3/uL (2.0-8.3); Neutrophils Percent Auto 64.6 % (45-73); Platelet Count 223 X10*3/uL (160-400); Red Cell Distribution Width 17.9 % (11.0-16.0); White Blood Count 9.1 X10*3/uL (4.8-10.8)
[2023-10-17 01:00] LABS: Anion Gap 12 (12-20); Blood Urea Nitrogen 14 mg/dL (9-16); Calcium 8.9 mg/dL (8.4-10.2); Carbon Dioxide 25 mmol/L (22-29); Chloride 106 mmol/L (96-108); Creatinine Clr Calc Pharmacy 133.8; Estimated Glomerular Filt Rate > 60; Glucose Random 97 mg/dL (60-115); Potassium 3.6 mmol/L (3.3-5.1); Sodium 139 mmol/L (135-145)
[2023-10-17 01:06] LABS: Troponin-I High Sensitivity 4.2 ng/L (<3.5-17.0)
[2023-10-17 05:30] VITALS: BP 142/85; PULSE 82; RESP 20; TEMP 36.5; O2SAT 94
--- NOTE | 2023-10-17 06:04 | PC.NURSE ---
d/c dowtime nurse to nurse repot called
== END 2023-10-17 04:45 | disposition home or self-care (01) ==
PROVIDERS: Emergency Provider Emergency Medicine
DX: T14.8XXA Other injury of unspecified body region, initial encounter (principal); E11.9 Type 2 diabetes mellitus without complications; J45.909 Unspecified asthma, uncomplicated; W01.0XXA Fall on same level from slipping, tripping and stumbling without subsequent striking against object, initial encounter; Y93.9 Activity, unspecified; Y92.199 Unspecified place in other specified residential institution as the place of occurrence of the external cause; Y99.9 Unspecified external cause status
CPT/HCPCS: 36415; 70450; 72125; 80048; 84484; 85025; 93005; 99284

== ENCOUNTER → 2023-10-17 00:04 | Outpatient (BNV) | payer OTHER, SELFPAY | PROVIDERS: Emergency Provider Emergency Medicine; Visit Provider Internal Medicine Cardiovascular Disease | DX: R94.31 Abnormal electrocardiogram [ECG] [EKG] (principal) | CPT/HCPCS: 93010 ==

== ENCOUNTER 2023-12-05 09:53 | Outpatient (REF) | payer OTHER, SELFPAY ==
--- NOTE | ~2023-12-05 | XR_ITS ---
EXAMINATION: XR WRIST, LEFT CLINICAL INFORMATION: Pain in the left wrist COMPARISON: None available. TECHNIQUE: PA, lateral, and oblique views of the left wrist. FINDINGS: Bone island within the scaphoid without clinical significance. Small carpal cyst in the lunate likely without clinical significance. The bones and soft tissues are otherwise normal. No fracture. Alignment is anatomic with normal joint spaces. No erosions or abnormal soft tissue calcifications. XR/XR wrist LT min 3V IMPRESSION: Normal left wrist.
== END 2023-12-05 09:54 | disposition home or self-care (01) ==
LOC: HO.XRAY 09:53
PROVIDERS: PCP Physician Assistant; Visit Provider Physician Assistant
DX: Z13.89 Encounter for screening for other disorder (principal)
CPT/HCPCS: 73110

== ENCOUNTER 2023-12-05 20:01 | Emergency (ER) | payer OTHER, SELFPAY ==
--- NOTE | 2023-12-05 | ECG_ITS ---
Test Reason : CHEST PAIN Blood Pressure : / mmHG Vent. Rate : 078 BPM Atrial Rate : 078 BPM P-R Int : 194 ms QRS Dur : 090 ms QT Int : 388 ms P-R-T Axes : 037 -12 032 degrees QTc Int : 442 ms Normal sinus rhythm Normal ECG When compared with ECG of 17-OCT-2023 00:52, No significant change was found Referred By: Generic ED Physician Electronically Signed By:MADELEINE HALE MD
[2023-12-05 20:25] VITALS: BP 143/79; PULSE 77; RESP 16; TEMP 36.9; O2SAT 95; BMI 47.0
[2023-12-05 20:52] LABS: MANUAL DIFF FLAG NO
[2023-12-05 20:53] LABS: Basophils Percent Auto 0.3 % (0-2); Eosinophils Absolute Auto 0.2 X10*3/uL (0.0-0.4); Eosinophils Percent Auto 2.2 % (0-4); Hematocrit 30.7 % (37.0-47.0); Hemoglobin 9.4 g/dl (12.0-16.0); Imm Gran Abs Auto 0.05 X10*3/uL (0.00-0.03); Imm Gran Pct Auto 0.5 % (0.0-0.4); Lymphocytes Percent Auto 21.6 % (20-40); Mean Corpuscular HGB Conc 30.6 g/dl (31.0-35.0); Mean Corpuscular Hemoglobin 23.8 pg (27.0-33.0); Mean Corpuscular Volume 77.7 fL (80.0-98.0); Mean Platelet Volume 9.3 fL (9.4-12.3); Monocytes Absolute Auto 0.5 X10*3/uL (0.1-1.2); Monocytes Percent Auto 5.8 % (2-11); Neutrophils Absolute Auto 6.3 x10*3/uL (2.0-8.3); Neutrophils Percent Auto 69.6 % (45-73); Platelet Count 256 X10*3/uL (160-400); Red Blood Count 3.95 X10*6/uL (4.20-5.50); Red Cell Distribution Width 18.7 % (11.0-16.0); White Blood Count 9.1 X10*3/uL (4.8-10.8)
--- NOTE | 2023-12-05 20:53 | ED_ITS ---
HPI - Chest Pain General Chief Complaint: Chest Pain Stated Complaint: chest pain,nausea,HTN Time Seen by Provider: 12/05/23 20:53 Source: patient Mode of arrival: EMS Limitations: no limitations History of Present Illness HPI narrative: Patient with history of anxiety depression sleep apnea diabetes bipolar disorder came from psych facility for left wrist pain multiple complaints no recent fall patient had x-ray done earlier today Related Data Home Medications ?Medication ?Instructions ?Recorded ?Confirmed fluticasone 100 mcg-salmeterol 50 1 puff inhalation BID 08/01/21 03/31/23 mcg/dose blistr powdr for inhalation (Advair Diskus) lactase 3,000 unit tablet (Lactaid) 3,000 unit PO QID PRN Lactose 08/01/21 03/31/23 Intolerance umeclidinium 62.5 mcg/actuation 1 inh inhalation QAM 08/01/21 03/31/23 blister powder for inhalation (Incruse Ellipta) cetirizine 10 mg tablet 10 mg PO DAILY 12/19/22 03/31/23 cholecalciferol (vitamin D3) 25 25 mcg PO QAM 12/19/22 03/31/23 mcg (1,000 unit) tablet docusate sodium 100 mg capsule 100 mg PO QAM 12/19/22 03/31/23 famotidine 40 mg tablet 40 mg PO BID 12/19/22 03/31/23 gabapentin 400 mg capsule 400 mg PO TID 12/19/22 03/31/23 metformin 500 mg tablet,extended 1,000 mg PO DAILY 12/19/22 03/31/23 release 24 hr pantoprazole 40 mg tablet,delayed 40 mg PO BID 12/19/22 03/31/23 release piroxicam 10 mg capsule 10 mg PO BID 12/19/22 03/31/23 fluticasone propionate 50 1 spray intranasal DAILY 12/20/22 03/31/23 mcg/actuation nasal spray,suspension hydroxyzine pamoate 50 mg capsule 100 mg PO TID PRN Anxiety 12/20/22 03/31/23 Previous Rx's ?Medication ?Instructions ?Recorded multivitamin (Daily-Emil tablet) 1 tab PO DAILY 30 days #30 tabs 08/15/21 dicyclomine 10 mg capsule 10 mg PO QIDACHS PRN IBS #0 caps 01/24/22 ipratropium 0.5 mg-albuterol 3 mg 3 ml inhalation Q4H PRN Shortness 01/24/22 (2.5 mg base)/3 mL nebulization Of Breath #90 mL soln ondansetron 4 mg disintegrating 8 mg (2 x 4 mg) translingual TIDWM 01/24/22 tablet #0 tabs quetiapine 100 mg tablet 100 mg PO BEDTIME #0 tabs 01/24/22 trazodone 100 mg tablet 200 mg (2 x 100 mg) PO BEDTIME #0 01/24/22 tabs carbamazepine 200 mg 800 mg (4 x 200 mg) PO BID 30 days 12/26/22 tablet,extended release,12 hr #240 tabs simethicone 80 mg chewable tablet 80 mg PO QIDWMHS PRN flatulence 30 12/26/22 (Gas Relief (simethicone)) days #60 tabs prazosin 5 mg capsule 5 mg PO BEDTIME 30 days #30 caps 01/01/23 Allergies Allergy/AdvReac Type Severity Reaction Status Date / Time sulfamethoxazole Allergy Intermediate Rash Verified 12/05/23 20:27 [From Bactrim] trimethoprim [From Bactrim] Allergy Intermediate Rash Verified 12/05/23 20:27 adhesive tape Allergy Rash Verified 12/05/23 20:27 [place] And Derivatives Allergy Gastrointestinal Verified 12/05/23 20:27 Upset Benzodiazepines AdvReac Intermediate Irritable Verified 12/05/23 20:27 diazepam [From Valium] AdvReac Intermediate Irritable Verified 12/05/23 20:27 Review of Systems 2 Review of Systems: Yes all other systems are reviewed and are negative [facility] Past Medical History Medical History GERD (gastroesophageal reflux disease) Sleep apnea Asthma Hearing loss Diabetes mellitus, type 2 Social History Social History Household Members: Other Household Members Other:: 2 Housing: Other Housing Other:: [facility] Do you presently have visiting nurse or other home services: Yes Alcohol intake: never Patient Tobacco Use Status: Never used Tobacco Smoked in Last 30 Days: No e-Cigarette/Vaping Use: Never Used Use of substances other than those prescribed or required for medical reasons: No Advance Directives: No Advance Directives Information Provided: No Do you have a plan to hurt others: No Plan Patient : No service: No Sexual orientation: Straight/Heterosexual Physical Exam 2 Vital Signs: Vital Signs: Last Vital Signs Temp 98.1 F 12/06/23 01:53 Pulse 77 12/06/23 01:53 Resp 16 12/06/23 01:53 BP 143/88 H 12/06/23 01:53 Pulse Ox 96 12/06/23 01:53 O2 Del Method Room Air 12/06/23 01:53 BMI result Body Mass Index 47.0 Appearance: Alert. Oriented X3. No acute distress. Anxious Eyes: PERRLA, No Nystagmus ENT: Pharynx normal. Oral Mucosa moist Neck: Normal inspection. Neck supple. CVS: Normal heart rate and rhythm. Pulses normal. Respiratory: No respiratory distress. Equal air entry bilateral, no wheezing/rales/rhonchi Abdomen: Soft and nontender. Bowel sounds are present, no mass palpable, no CVA tenderness Skin: Skin warm and dry. Normal skin color. Normal skin turgor. Extremities: No lower extremity edema. No calf tenderness, left wrist diffuse tenderness no bony tenderness no deformity Neuro: Oriented X 3. No motor deficit. No sensory deficit.No cerebellar signs , cranial nerves II-XII intact Medications Administered Discontinued Medications Generic Name Dose Route Start Last Admin Trade Name Freq PRN Reason Stop Dose Admin Ibuprofen 600 mg 12/05/23 21:40 12/05/23 21:55 Ibuprofen 600 Mg Tablet PO 12/05/23 21:41 600 mg ONCE ONE Administration Lorazepam 0.5 mg 12/05/23 21:40 12/05/23 21:56 Lorazepam 0.5 Mg Tablet PO 12/05/23 21:41 0.5 mg ONCE ONE Administration Medical Decision Making Medical Decision Making MDM Narrative: Patient with anxiety depression left wrist negative for fracture apply wrist sprain labs are stable discharge patient back to group final report of x-rays pending Lab Data [facility] Lab Attestation statement: I reviewed the patient's lab results. 12/05/23 20:45 12/05/23 20:45 Labs: Lab Results 12/05/23 Range/Units 20:45 WBC 9.1 (4.8-10.8) X10*3/uL RBC 3.95 L (4.20-5.50) X10*6/uL Hgb 9.4 L (12.0-16.0) g/dl Hct 30.7 L (37.0-47.0) % MCV 77.7 L (80.0-98.0) fL MCH 23.8 L (27.0-33.0) pg MCHC 30.6 L (31.0-35.0) g/dl RDW 18.7 H (11.0-16.0) % Plt Count 256 (160-400) X10*3/uL MPV 9.3 L (9.4-12.3) fL Immature Gran % (Auto) 0.5 H (0.0-0.4) % Neut % (Auto) 69.6 (45-73) % Lymph % (Auto) 21.6 (20-40) % [place] % (Auto) 5.8 (2-11) % Eos % (Auto) 2.2 (0-4) % Baso % (Auto) 0.3 (0-2) % Lymph # (Auto) 2.0 (1.2-4.9) X10*3/uL [place] # (Auto) 0.5 (0.1-1.2) X10*3/uL Eos # (Auto) 0.2 (0.0-0.4) X10*3/uL Baso # (Auto) 0.0 (0.0-0.2) X10*3/uL Abs Immat Gran (auto) 0.05 H (0.00-0.03) X10*3/uL Absolute Neuts (auto) 6.3 (2.0-8.3) x10*3/uL Absolute Nucleated RBC 0.000 (0.0-0.012) X10*3/uL Nucleated RBC % (auto) 0.0 (0.0-0.2) /100WBC Sodium 139 (135-145) mmol/L Potassium 4.0 (3.3-5.1) mmol/L Chloride 103 (96-108) mmol/L Carbon Dioxide 28 (22-29) mmol/L Anion Gap 12 (12-20) BUN 13 (9-16) mg/dL Creatinine 0.76 (0.5-1.4) mg/dL Estim Creat Clear Calc 104.8 Estimated GFR > 60 Random Glucose 105 (60-115) mg/dL Calcium 8.8 (8.4-10.2) mg/dL Total Bilirubin 0.2 (0.0-1.0) mg/dL AST 18 (5-31) U/L ALT 16 (0-31) U/L Alkaline Phosphatase 106 (39-117) U/L Troponin I High Sens 5.4 (<3.5-17.0) ng/L Total Protein 6.8 (6.5-8.0) g/dL Albumin 3.8 (3.5-5.0) g/dL Discharge Plan Discharge Clinical Impression: Atypical chest pain, Left wrist sprain, Anxiety Patient Disposition: Home, Self-Care Instructions: Anxiety (ED), Wrist Sprain (ED), Chest Wall Pain (ED) Additional Instructions: Wear the wrist splint for sprain and pain in the left wrist Tylenol/Motrin for the pain and continue piroxicam which will help in the pain Continue your anxiety medication Prescriptions: No Action ipratropium-albuterol 0.5 mg-3 mg(2.5 mg base)/3 mL Solution For Nebulization 3 ml inhalation Q4H PRN (Reason: Shortness Of Breath) Qty: 90 0RF dicyclomine 10 mg Capsule 10 mg PO QIDACHS PRN (Reason: IBS) Qty: 0 0RF quetiapine 100 mg Tablet 100 mg PO BEDTIME Qty: 0 0RF trazodone 100 mg Tablet 200 mg PO BEDTIME Qty: 0 0RF ondansetron 4 mg Tablet,Disintegrating 8 mg translingual TIDWM Qty: 0 0RF fluticasone propion-salmeterol [Advair Diskus] 100-50 mcg/dose blister with device 1 puff inhalation BID lactase [Lactaid] 3,000 unit Tablet 3,000 unit PO QID PRN (Reason: Lactose Intolerance) Incruse Ellipta 62.5 mcg/actuation Blister With Device 1 inh INHALATION QAM multivitamin [Daily-Emil] Tablet 1 tab PO DAILY 30 Days Qty: 30 0RF gabapentin 400 mg capsule 400 mg PO TID metformin 500 mg tablet extended release 24 hr 1,000 mg PO DAILY piroxicam 10 mg capsule 10 mg PO BID cholecalciferol (vitamin D3) 25 mcg (1,000 unit) tablet 25 mcg PO QAM cetirizine 10 mg tablet 10 mg PO DAILY famotidine 40 mg tablet 40 mg PO BID pantoprazole 40 mg tablet,delayed release (DR/EC) 40 mg PO BID docusate sodium 100 mg capsule 100 mg PO QAM hydroxyzine pamoate 50 mg capsule 100 mg PO TID PRN (Reason: Anxiety) fluticasone propionate 50 mcg/actuation spray,suspension 1 spray intranasal DAILY carbamazepine 200 mg Tablet Extended Release 12 Hr 800 mg PO BID 30 Days Qty: 240 0RF simethicone [Gas Relief (simethicone)] 80 mg Tablet,Chewable 80 mg PO QIDWMHS PRN (Reason: flatulence) 30 Days Qty: 60 0RF prazosin 5 mg capsule 5 mg PO BEDTIME 30 Days Qty: 30 0RF Interventions: ED Discharge Assessment Last Done: 12/06/23 01:53 Print Language: [place]
[2023-12-05 21:07] LABS: Alanine Aminotransferase 16 U/L (0-31); Albumin Level 3.8 g/dL (3.5-5.0); Alkaline Phosphatase 106 U/L (39-117); Anion Gap 12 (12-20); Aspartate Amino Transferase 18 U/L (5-31); Bilirubin Total 0.2 mg/dL (0.0-1.0); Blood Urea Nitrogen 13 mg/dL (9-16); Calcium 8.8 mg/dL (8.4-10.2); Carbon Dioxide 28 mmol/L (22-29); Chloride 103 mmol/L (96-108); Creatinine Clr Calc Pharmacy 104.8; Estimated Glomerular Filt Rate > 60; Glucose Random 105 mg/dL (60-115); Sodium 139 mmol/L (135-145); Total Protein 6.8 g/dL (6.5-8.0)
[2023-12-05 21:14] LABS: Troponin-I High Sensitivity 5.4 ng/L (<3.5-17.0)
--- OUTSIDE RECORDS SUMMARY | 2023-12-05 21:38 | XMS_ITS | Continuity of Care Document ---
Author Organization [facility] ter Address [address] [place] [address]- Care Team Providers Care Finishing Area Supervisor Name Role Phone Melissa Guevara Primary Care Physician [facility] Date(s): 09/17/23 - 09/18/[address] [address]- Discharge Disposition: A-D/C Home Attending Physician: Bryan Uribe MD Admitting Physician: Bryan Uribe MD Referring Physician: Not on Staff, Referring MD Allergies, Adverse Reactions, Alerts Substance Reaction Severity Status naproxen unknown Active Bactrim unknown Active OxyCONTIN Unknown Unknown Active sulfa drugs Active benzodiazepines unknown Active Valium Active Benadryl Unknown Unknown Active Immunizations Given [...] influenza virus vaccine, inactivated 04/10/13 Tuan rded [id number] 12y+ bivalent booster vax 05/02/22 Recorded zoster [...] hepatitis B adult vaccine 08/27/13 Recorded Medications acetaminophen 500 mg oral tablet 0 Refills, Maintenance, 07/22/23 6:37:00 EST, Partial fill upon patient request if the prescriptionis for a schedule II opioid drug. Start Date: 07/22/23 Status: Ordered albuterol CFC free 90 mcg/inh inhalation aerosol 180 mcg, 2, puffs, Inhalation, Every 4 hours, PRN, Refills 0, Maintenance, 03/13/22 21:21:00 EDT, Inhaler Start Date: 03/13/22 Status: Ordered albuterol-ipratropium 3 mg-0.5 mg/3 ml inhalation solution 0 Refills, Maintenance, 07/22/23 6:34:00 EST, Partial fill upon patient request if the prescriptionis for a schedule II opioid drug. Start Date: 07/22/23 Status: Ordered albuterol-ipratropium 3 mg-0.5 mg/3 ml inhalation solution 3 mL, Neb, 2 times a day, 0 Refills, Maintenance, 12/08/21 9:06:00 EDT, Solution, ; Start Date: 12/08/21 Status: Ordered Augmentin 875 mg-125 mg oral tablet 0 Refills, Maintenance, 07/22/23 6:37:00 EST, Partial fill upon patient request if the prescriptionis for a schedule II opioid drug. Start Date: 07/22/23 Status: Ordered Benadryl 25 mg oral capsule [...] ; Start Date: 03/29/21 Status: Ordered carBAMazepine 100 mg oral tablet, extended release Refills 0, Maintenance, 07/22/23 6:37:00 EST, Partial fill upon patient request if the prescriptionis for a schedule II opioid drug. Start Date: 07/22/23 Status: Ordered carBAMazepine 400 mg oral tablet, extended release 400 mg, 1, tablet, By Mouth, 3 times a day, # 90 tablet, Refills 0, Tot. Refills 0, Maintenance, 11/15/22 14:23:00 EDT, Route to Pharmacy Electronically, [facility], Partial fill upon patient request if the prescription is for... Start Date: 11/15/22 Status: Ordered cetirizine 10 mg oral tablet 0 Refills, Maintenance, 07/22/23 6:37:00 EST, Partial fill upon patient request if the prescriptionis for a schedule II opioid drug. Start Date: 07/22/23 Status: Ordered cetirizine 10 mg oral tablet 1 tablet = 10 mg, By Mouth, Daily, Maintenance, 03/06/22 12:28:00 EDT, Tablet, ; Start Date: 03/06/22 Status: Ordered D3 1000 oral tablet 1 tablet = 1,000 International_Units, By Mouth, Daily, 0 Refills, Maintenance, 12/18/18 11:45:21 EDT Start Date: 12/18/18 Status: Ordered Daily Emil oral tablet 0 Refills, Maintenance, 07/22/23 6:33:00 EST, Partial fill upon patient request if the prescriptionis for a schedule II opioid drug. Start Date: 07/22/23 Status: Ordered docusate sodium 100 mg oral capsule 0 Refills, Maintenance, 07/22/23 6:37:00 EST, Partial fill upon patient request if the prescriptionis for a schedule II opioid drug. Start Date: 07/22/23 Status: Ordered Dulera 200 mcg-5 mcg/inh inhalation aerosol 0 Refills, Maintenance, 07/22/23 6:37:00 EST, Partial fill upon patient request if the prescriptionis for a schedule II opioid drug. Start Date: 07/22/23 Status: Ordered famotidine 40 mg oral tablet 0 Refills, Maintenance, 07/22/23 6:37:00 EST, Partial fill upon patient request if the prescriptionis for a schedule II opioid drug. Start Date: 07/22/23 Status: Ordered fluticasone 50 mcg/inh nasal spray 0 Refills, Maintenance, 07/22/23 6:34:00 EST, Partial fill upon patient request if the prescriptionis for a schedule II opioid drug. Start Date: 07/22/23 Status: Ordered fluticasone-vilanterol Inhalation, Daily, 0 Refills, Maintenance, 11/15/22 14:25:00 EDT, Inhaler, Partial fill upon patient request if the prescription is for a schedule II opioid drug. Start Date: 11/15/22 Status: Ordered gabapentin 400 mg oral capsule Refills 0, Maintenance, 07/22/23 6:33:00 EST, Partial fill upon patient request if the prescriptionis for a schedule II opioid drug. Start Date: 07/22/23 Status: Ordered gabapentin 400 mg oral capsule 400 mg, Capsule, By Mouth, 09/18/23 9:00:00 EST Start Date: 09/18/23 Stop Date: 09/18/23 Status: Completed gabapentin 400 mg oral capsule 400 mg, 1, capsule, By Mouth, 3 times a day, Refills 0, Maintenance, 11/15/22 14:23:00 EDT, Partialfill upon patient request if the prescription is for a schedule II opioid drug. Start Date: 11/15/22 Status: Ordered hydrOXYzine pamoate 50 mg oral capsule 0 Refills, Maintenance, 07/22/23 6:33:00 EST, Partial fill upon patient request if the prescriptionis for a schedule II opioid drug. Start Date: 07/22/23 Status: Ordered Incruse Ellipta 62.5 mcg/inh inhalation powder 0 Refills, Maintenance, 07/22/23 6:37:00 EST, Partial fill upon patient request if the prescriptionis for a schedule II opioid drug. Start Date: 07/22/23 Status: Ordered Incruse Ellipta 62.5 mcg/inh inhalation [...] opioid drug. Start Date: 11/15/22 Status: Ordered MetFORMIN (Eqv-Glucophage XR) 500 mg oral tablet, extended release 0 Refills, Maintenance, 07/22/23 6:34:00 EST, Partial fill upon patient request if the prescriptionis for a schedule II opioid drug. Start Date: 07/22/23 Status: Ordered metFORMIN 500 mg oral tablet, extended release 2 tablet = 1,000 mg, By Mouth, Daily, 0 Refills, Maintenance, 11/15/22 14:24:00 EDT, ER Tablet, Partial fill upon patient request if the prescription is for a schedule II opioid drug. Start Date: 11/15/22 Status: Ordered Multivitamin 1 tablet, Daily, 0 Refills, Maintenance, 12/08/21 9:07:00 EDT, ; Start Date: 12/08/21 Status: Ordered pantoprazole 40 mg oral delayed release tablet 0 Refills, Maintenance, 07/22/23 6:37:00 EST Start Date: 07/22/23 Status: Ordered piroxicam 10 mg oral capsule 0 Refills, Maintenance, 07/22/23 6:37:00 EST, Partial fill upon patient request if the prescriptionis for a schedule II opioid drug. Start Date: 07/22/23 Status: Ordered prazosin 1 mg oral capsule 4 mg, 4, capsule, By Mouth, Daily at bedtime, Refills 0, Maintenance, 11/15/22 14:24:00 EDT, Partial fill upon patient request if the prescription is for a schedule II opioid drug. Start Date: 11/15/22 Status: Ordered prazosin 5 mg oral capsule Refills 0, Maintenance, 07/22/23 6:33:00 EST, Partial fill upon patient request if the prescriptionis for a schedule II opioid drug. Start Date: 07/22/23 Status: Ordered Protonix 40 mg oral delayed release tablet 1 tablet = 40 mg, By Mouth, 2 times a day, 0 Refills, Maintenance, 03/29/21 15:15:00 EDT Start Date: 03/29/21 Status: Ordered QUEtiapine 100 mg oral tablet Refills 0, Maintenance, 07/22/23 6:34:00 EST, Partial fill upon patient request if the prescriptionis for a schedule II opioid drug. Start Date: 07/22/23 Status: Ordered QUEtiapine 100 mg oral tablet [...] ; Start Date: 12/08/21 Status: Ordered traZODone 100 mg oral tablet Refills 0, Maintenance, 07/22/23 6:33:00 EST, Partial fill upon patient request if the prescriptionis for a schedule II opioid drug. Start Date: 07/22/23 Status: Ordered traZODone 50 mg oral tablet 200 mg, 4, tablet, By Mouth, Daily at bedtime, Refills 0, Maintenance, 11/15/22 14:25:00 EDT, Partial fill upon patient request if the prescription is for a schedule II opioid drug. Start Date: 4/27/23 Status: Ordered Vitamin D3 1000 intl units oral tablet 0 Refills, Maintenance, 07/22/23 6:37:00 EST, Partial fill upon patient request if the prescriptionis for a schedule II opioid drug. Start Date: 07/22/23 Status: Ordered Problem List Condition Confirmation Course Effective Dates Status Health St atus Informant Severe obesity Confirmed Active Results Radiology Reports * Exam Date Time Procedure Performing Provider Status 09/17/23 11:58 PM Ankle Min 3 Views Left Adam Smith eph; Auth (Verified) Notes: (Ankle Min 3 Views Left) Reason For Exam: with Pain;Trauma RESULT: Ankle Min 3 Views Left Examination: Left ankle performed on 09/17/2023. History: Hx of Present Illness: SI thoughts to slit wrist; Reason: Trauma; with Pain; Clinical Question(s): Fracture Findings: Frontal, oblique, and lateral views of the left ankle are compared to a prior study dated 03/27/2018. The mortise is preserved. No fractures or dislocations are demonstrated. There is a plantar calcaneal spur. Soft tissue swelling overlies the lateral malleolus. IMPRESSION: Soft tissue swelling. There is no acute osseous abnormality. WSN: [id number] Ordering Physician: Doretha Viveros Dictated By: Iman López MD Dictated Date/Time: 09/18/23 7:36 am Reviewed By: Iman López MD Signed By: Iman López MD Signed Date/Time: 09/18/23 7:36 am Transcribed By: KENDY Transcribed Date/Time: 09/18/23 7:34 am Vital Signs Most recent to oldest [Reference Range]: 1 2 3 Oxygen Saturation [94-100 %] 97 % (09/18/23 7:55 AM) 95 % (09/18/23 3:57 AM) 95 % (09/17/23 10:17 PM) Pulse Rate [55-90 bpm] 80 bpm (09/18/23 7:55 AM) 83 bpm (09/18/23 3:57 AM) 91 bpm *H* (09/17/23 10:17 PM) Blood Pressure [90-138/55-84 mm Hg] 140/85mm Hg *H* (09/18/23 7:55 AM) 126/88mm Hg (09/18/23 3:57 AM) 127/93mm Hg (09/17/23 10:17 PM) Respiratory Rate [16-30 br/min] 18 br/min (09/18/23 8:12 AM) 18 br/min (09/18/23 7:55 AM) 18 br/min (09/18/23 3:57 AM) Temperature [96.8-100.4 DegF] 97.8 DegF (09/18/23 7:55 AM) 97.9 DegF (09/18/23 3:57 AM) 98.6 DegF (09/17/23 10:17 PM) Mode of Delivery (Oxygen) Room air (09/18/23 7:55 AM) Room air (09/18/23 3:57 AM) Room air (09/17/23 10:17 PM) Blood pressure sites Arm, right (09/18/23 7:55 AM) Arm, right (09/18/23 3:57 AM) Arm, left (09/17/23 10:17 PM) Temperature Route Oral (09/18/23 3:57 AM) Oral (09/17/23 10:17 PM) Patient Care team information Care Team Personnel Name: Kermit Mixon RN Position: S RN Member Role: Primary Care Nurse Name: Bibiana Kendall RN Position: S RN Member Role: Primary Care Nurse Name: Melissa Guevara Position: [facility] Associate Professional Member Role: PCP Address: Address: [address] [place] [id number] Name: Eleni Paige RN Position: S RN Member Role: Primary Care Nurse Care Team Related Persons Name: DAVE MORA Address: home [address] [address] Name: FLORIN LAMBERT [place] Address: home [address] [place] [address]
--- OUTSIDE RECORDS SUMMARY | 2023-12-05 21:38 | XMS_ITS | Continuity of Care Document ---
Author Organization [facility] ter Address [address] [place] [id number]- Care Team Providers Care Coil Connector Repairer Name Role Phone Melissa Guevara Primary Care Physician [facility]counter [facility] Date(s): 10/14/23 - 10/15/[address] [address]- Encounter Diagnosis Suicidal ideation(Final) - 10/14/23 Discharge Disposition: Transfer to Psych Facility Attending Physician: Jose Vang MD Admitting Physician: Jose Vang MD Referring Physician: Not on Staff, Referring [...] influenza virus vaccine, inactivated 04/10/13 Tuan rded [id number] 12y+ bivalent booster vax 05/02/22 Recorded zoster [...] 11/15/22 14:23:00 EDT, Route to Pharmacy Electronically, [facility], Partial fill upon patient request if the [...] opioid drug. Start Date: 11/15/22 Status: Ordered Vitamin D3 1000 intl units [...] 3 Oxygen Saturation [94-100 %] 95 % (10/15/23 12:51 PM) 97 % (10/15/23 10:30 AM) 97 % (10/15/23 6:16 AM) Pulse Rate [55-90 bpm] 86 bpm (10/15/23 12:51 PM) 73 bpm (10/15/23 10:30 AM) 79 bpm (10/15/23 6:16 AM) Blood Pressure [90-138/55-84 mm Hg] 153/90mm Hg *H* (10/15/23 12:51 PM) 133/87mm Hg (10/15/23 10:30 AM) 162/82mm Hg *H* (10/15/23 6:16 AM) Respiratory Rate [16-30 br/min] 18 br/min (10/15/23 12:51 PM) 16 br/min (10/15/23 10:30 AM) 16 br/min (10/15/23 6:16 AM) Temperature [96.8-100.4 DegF] 98.4 DegF (10/15/23 12:51 PM) 97.6 DegF (10/15/23 6:16 AM) 97.4 DegF (10/15/23 5:16 AM) Mode of Delivery (Oxygen) Room air (10/15/23 12:51 PM) Room air (10/15/23 10:30 AM) Room air (10/15/23 6:16 AM) Blood pressure sites Arm, right (10/15/23 12:51 PM) Arm, right (10/15/23 10:30 AM) Arm, right (10/15/23 6:16 AM) Temperature Route Oral (10/15/23 12:51 PM) Oral (10/15/23 6:16 AM) Oral (10/15/23 5:16 AM) EKG study * Event Display: ECG 12-Lead Authored Date: [id number] Please click on pdf link to open report * Event Display: ECG 12-Lead Authored Date: Ventricular Rate: 82 BPM Atrial Rate: 82 BPM P-R Interval: 190 ms QRS Duration: 88 ms Q-T Interval: 382 ms QTC Calculation(Bazett): 446 ms P Sanford: 37 degrees R Sanford: -20 degrees T Sanford: 43 degrees Normal sinus rhythm Low voltage QRS Borderline ECG When compared with ECG of 10-MAR-2022 20:00, No significant change was found Confirmed by Ritesh Vail ([id number]) on 10/15/2023 7:23:04 AM Sanford: Ritesh Vail Patient Care team information Care Team Personnel Name: Kermit Mixon RN Position: S RN Member Role: Primary Care Nurse Name: Bibiana Kendall RN Position: S RN Member Role: Primary Care Nurse Name: Melissa Guevara Position: S Associate Professional Member Role: PCP Address: Address: [address] [place] [id number] Name: Eleni Paige RN Position: S RN Member Role: Primary Care Nurse Care Team Related Persons Name: DAVE MORA Address: home [address] [address] Name: FLORIN LAMBERT [place] Address: home [address] [place] [address]
--- OUTSIDE RECORDS SUMMARY | 2023-12-05 21:39 | XMS_ITS | Continuity of Care Document ---
Author Name [facility] Address [address] [place] [address] Organization [facility] Address [address] [place] [address] Allergies, Adverse Reactions, Alerts Allergen Type Severity Reaction Last Updated Verified Status Benzodiazepines Allergy Anaphylaxis July 28, 2022 Y Active diazepam Allergy Anaphylaxis July 28, 2022 Y Act maicol sulfamethoxazole Allergy Anaphylaxis July 28, 2022 Y Active trimethoprim Allergy Anaphylaxis July 28, 2022 Y Active Medications No medication information available. Problem List Inactive/Resolved Problems Medical Problem Onset Date Status Musculoskeletal chest pain Inact maicol Procedures No known history of procedures. Relevant Diagnostic Tests and/or Laboratory Data No known relevant diagnostic tests, laboratory data, and/or discharge summary. Hospital Discharge Instructions No known hospital discharge instructions. Functional Status No known functional status. Immunizations No known immunizations. Plan of Care No Known Plan of Care Information Social History No known social history. Vital Signs No known vital signs results.
--- OUTSIDE RECORDS SUMMARY | 2023-12-05 21:39 | XMS_ITS | Continuity of Care Document ---
Author Name [facility] Address [address] [place] [address] Organization [facility] Address [address] [place] [address] Allergies, Adverse Reactions, Alerts Allergen Type Severity [...]
[2023-12-05] MEDS: Ibuprofen 600 MG TABLET PO (21:55)
[2023-12-05] MEDS: LORazepam 0.5 MG TABLET PO (21:56)
--- NOTE | 2023-12-05 22:09 | PC.NURSE ---
pt assessed, left wrist brace applied, pt tolerating well, medicated per MAR, waiting for ride
[2023-12-06 01:53] VITALS: BP 143/88; PULSE 77; RESP 16; TEMP 36.7; O2SAT 96
== END 2023-12-06 01:55 | disposition home or self-care (01) ==
PROVIDERS: Emergency Provider Internal Medicine; PCP Physician Assistant
DX: S63.502A Unspecified sprain of left wrist, initial encounter (principal); R07.89 Other chest pain; F41.9 Anxiety disorder, unspecified; E11.9 Type 2 diabetes mellitus without complications; X58.XXXA Exposure to other specified factors, initial encounter; Y93.9 Activity, unspecified; Y92.9 Unspecified place or not applicable; Y99.9 Unspecified external cause status
CPT/HCPCS: 36415; 73110; 80053; 84484; 85025; 93005; 99283; 99284

== ENCOUNTER → 2023-12-05 20:07 | Outpatient (BNV) | payer OTHER, SELFPAY | PROVIDERS: Emergency Provider Internal Medicine; PCP Physician Assistant; Visit Provider Internal Medicine Cardiovascular Disease | DX: R07.9 Chest pain, unspecified (principal) | CPT/HCPCS: 93010 ==

== ENCOUNTER 2024-03-01 20:53 | Emergency (ER) | payer OTHER, SELFPAY ==
--- NOTE | 2024-03-01 | ECG_ITS ---
Test Reason : NAUSEA/ABD PAIN Blood Pressure : / mmHG Vent. Rate : 083 BPM Atrial Rate : 083 BPM P-R Int : 182 ms QRS Dur : 086 ms QT Int : 376 ms P-R-T Axes : 023 -24 015 degrees QTc Int : 441 ms Normal sinus rhythm Anterior infarct , age undetermined - can also be related to body habitus/lead placement Abnormal ECG When compared with ECG of 05-DEC-2023 20:07, No significant change was found Referred By: Generic ED Physician Electronically Signed By:MILAN GILES
--- NOTE | ~2024-03-01 | XR_ITS ---
EXAMINATION: XR CHEST CLINICAL INFORMATION: Recent pneumonia COMPARISON: 07/27/2023 TECHNIQUE: Frontal view of the chest was obtained. FINDINGS: Unchanged bilateral peribronchial vascular thickening without focal infiltrate. No effusion or pneumothorax. Unchanged cardiac mediastinal silhouette. XR/XR chest 1V IMPRESSION: Unchanged bilateral peribronchial vascular thickening without focal infiltrate.
--- NOTE | ~2024-03-01 | CT_ITS ---
EXAMINATION: CT ABDOMEN AND PELVIS WITHOUT CONTRAST CLINICAL INFORMATION: Abdominal pain. COMPARISON: None available. TECHNIQUE: Multidetector volumetric imaging was performed from the superior aspect of the liver through the pubic symphysis. Sagittal and coronal reformatted images were obtained on the technologist's workstation. This CT examination was performed using dose optimization techniques as appropriate, variously including the following: *Automated exposure control *Adjustment of mA and/or kV according to patient size (this includes techniques or standardized protocols for targeted exams where dose is matched to indication/reason for exam; i.e. extremities or head) *Use of iterative reconstruction technique DLP: 896 mGy-cm FINDINGS: LUNG BASES: The visualized lung bases are unremarkable. LIVER, GALLBLADDER, AND BILIARY TREE: The liver is of diminished attenuation and enlarged measuring up to 25 cm. No focal liver lesions are seen. The gallbladder is unremarkable with no evidence of radiopaque gallstones, gallbladder wall thickening, or obvious pericholecystic inflammatory changes. PANCREAS: Unremarkable. SPLEEN: Unremarkable. ADRENAL GLANDS: Unremarkable. KIDNEYS AND URETERS: The kidneys are normal in size, shape, and attenuation. There is a 5.8 cm cyst upper pole right kidney. There is no hydronephrosis. BLADDER: Unremarkable. GASTROINTESTINAL TRACT: The small and large bowel are unremarkable. The appendix is not seen. ABDOMINAL WALL: No significant hernia is appreciated. LYMPH NODES: Normal. VASCULAR: Unremarkable. PELVIC VISCERA: The uterus is lobular and heterogeneous. OSSEOUS STRUCTURES: Unremarkable. CT/CT abdomen pelvis wo IV con IMPRESSION: Enlarged fatty liver. Right renal cyst. Lobulated heterogeneous uterus likely related to fibroids. No acute intra-abdominal process. Fleischner guidelines were followed.
[2024-03-01 21:01] VITALS: BP 152/100; PULSE 92; O2SAT 99
[2024-03-01 21:07] VITALS: BP 151/77; PULSE 93; RESP 22; TEMP 37.2; O2SAT 97; BMI 42.2
[2024-03-01 21:11] LABS: Glucose, Whole Blood 341 mg/dL (60-115)
[2024-03-01 21:47] LABS: MANUAL DIFF FLAG NO
[2024-03-01 21:56] LABS: Basophils Percent Auto 0.3 % (0-2); Eosinophils Absolute Auto 0.2 X10*3/uL (0.0-0.4); Eosinophils Percent Auto 1.6 % (0-4); Hematocrit 35.9 % (37.0-47.0); Hemoglobin 11.2 g/dl (12.0-16.0); Imm Gran Abs Auto 0.27 X10*3/uL (0.00-0.03); Imm Gran Pct Auto 2.1 % (0.0-0.4); Lymphocytes Absolute Auto 2.8 X10*3/uL (1.2-4.9); Lymphocytes Percent Auto 22.1 % (20-40); Mean Corpuscular HGB Conc 31.2 g/dl (31.0-35.0); Mean Corpuscular Hemoglobin 24.2 pg (27.0-33.0); Mean Corpuscular Volume 77.7 fL (80.0-98.0); Mean Platelet Volume 9.7 fL (9.4-12.3); Monocytes Absolute Auto 0.8 X10*3/uL (0.1-1.2); Neutrophils Absolute Auto 8.7 x10*3/uL (2.0-8.3); Neutrophils Percent Auto 67.9 % (45-73); Platelet Count 238 X10*3/uL (160-400); Red Blood Count 4.62 X10*6/uL (4.20-5.50); White Blood Count 12.8 X10*3/uL (4.8-10.8)
[2024-03-01 22:06] LABS: Lactic Acid 2.2 mmol/L (0.5-2.0)
[2024-03-01 22:07] LABS: Alanine Aminotransferase 16 U/L (0-31); Albumin Level 3.9 g/dL (3.5-5.0); Alkaline Phosphatase 149 U/L (39-117); Anion Gap 13 (12-20); Aspartate Amino Transferase 16 U/L (5-31); Bilirubin Total 0.3 mg/dL (0.0-1.0); Blood Urea Nitrogen 7 mg/dL (9-16); Calcium 9.5 mg/dL (8.4-10.2); Carbon Dioxide 27 mmol/L (22-29); Chloride 100 mmol/L (96-108); Creatinine Clr Calc Pharmacy 94.6; Estimated Glomerular Filt Rate > 60; Glucose Random 333 mg/dL (60-115); Lipase 24 U/L (8-78); Potassium 3.9 mmol/L (3.3-5.1); Sodium 136 mmol/L (135-145); Total Protein 7.5 g/dL (6.5-8.0)
[2024-03-01 22:49] VITALS: BP 148/82; PULSE 80; RESP 20; TEMP 37.3; O2SAT 96
[2024-03-01 23:46] LABS: Reflex Lactate? Lactic Acid Added
[2024-03-01 23:53] VITALS: BP 120/66; PULSE 86; RESP 16; TEMP 36.8; O2SAT 96
--- NOTE | 2024-03-02 00:17 | ED_ITS ---
HPI - Abdominal Pain General Chief Complaint: Abdominal Pain Stated Complaint: Diarrhea, hx diabetes, 04/30 abd pain, POC 383 Time Seen by Provider: 03/01/24 23:47 Source: patient and EMS Mode of arrival: EMS Limitations: no limitations History of Present Illness ED Provider: DR. Brantley HPI narrative: 53-year-old female history of TBI presented for evaluation of abdominal pain and severe diarrhea that has been constant all day today, patient can not keep any food down. Patient was diagnosed with pneumonia at [facility] last week and was discharged on doxycycline that the patient just finished the course of antibiotic then started the bullet abdominal pain and constant nonbloody watery diarrhea that is brown in color. Patient feels very dehydrated unable to keep food in her stomach. No nausea, no vomiting, no fever, no chills. Patient is not coughing anymore. Related Data Home Medications ?Medication ?Instructions ?Recorded ?Confirmed fluticasone 100 mcg-salmeterol 50 1 puff inhalation BID 08/01/21 03/31/23 mcg/dose blistr powdr for inhalation (Advair Diskus) lactase 3,000 unit tablet (Lactaid) 3,000 unit PO QID PRN Lactose 08/01/21 03/31/23 Intolerance umeclidinium 62.5 mcg/actuation 1 inh inhalation QAM 08/01/21 03/31/23 blister powder for inhalation (Incruse Ellipta) cetirizine 10 mg tablet 10 mg PO DAILY 12/19/22 03/31/23 cholecalciferol (vitamin D3) 25 25 mcg PO QAM 12/19/22 03/31/23 mcg (1,000 unit) tablet docusate sodium 100 mg capsule 100 mg PO QAM 12/19/22 03/31/23 famotidine 40 mg tablet 40 mg PO BID 12/19/22 03/31/23 gabapentin 400 mg capsule 400 mg PO TID 12/19/22 03/31/23 metformin 500 mg tablet,extended 1,000 mg PO DAILY 12/19/22 03/31/23 release 24 hr pantoprazole 40 mg tablet,delayed 40 mg PO BID 12/19/22 03/31/23 release piroxicam 10 mg capsule 10 mg PO BID 12/19/22 03/31/23 fluticasone propionate 50 1 spray intranasal DAILY 12/20/22 03/31/23 mcg/actuation nasal spray,suspension hydroxyzine pamoate 50 mg capsule 100 mg PO TID PRN Anxiety 12/20/22 03/31/23 Previous Rx's ?Medication ?Instructions ?Recorded multivitamin (Daily-Emil tablet) 1 tab PO DAILY 30 days #30 tabs 08/15/21 dicyclomine 10 mg capsule 10 mg PO QIDACHS PRN IBS #0 caps 01/24/22 ipratropium 0.5 mg-albuterol 3 mg 3 ml inhalation Q4H PRN Shortness 01/24/22 (2.5 mg base)/3 mL nebulization Of Breath #90 mL soln ondansetron 4 mg disintegrating 8 mg (2 x 4 mg) translingual TIDWM 01/24/22 tablet #0 tabs quetiapine 100 mg tablet 100 mg PO BEDTIME #0 tabs 01/24/22 trazodone 100 mg tablet 200 mg (2 x 100 mg) PO BEDTIME #0 01/24/22 tabs carbamazepine 200 mg 800 mg (4 x 200 mg) PO BID 30 days 12/26/22 tablet,extended release,12 hr #240 tabs simethicone 80 mg chewable tablet 80 mg PO QIDWMHS PRN flatulence 30 12/26/22 (Gas Relief (simethicone)) days #60 tabs prazosin 5 mg capsule 5 mg PO BEDTIME 30 days #30 caps 01/01/23 vancomycin 125 mg capsule 125 mg PO QID 10 days #40 caps 03/02/24 Allergies Allergy/AdvReac Type Severity Reaction Status Date / Time sulfamethoxazole Allergy Intermediate Rash Verified 03/01/24 21:14 [From Bactrim] trimethoprim [From Bactrim] Allergy Intermediate Rash Verified 03/01/24 21:14 adhesive tape Allergy Rash Verified 03/01/24 21:14 Rosebud And Derivatives Allergy Gastrointestinal Verified 03/01/24 21:14 Upset Benzodiazepines AdvReac Intermediate Irritable Verified 03/01/24 21:14 diazepam [From Valium] AdvReac Intermediate Irritable Verified 03/01/24 21:14 Review of Systems Review of Systems All other systems are reviewed and are negative Constitutional: Reports as per HPI and Reports no additional constitutional complaints Eyes: Reports as per HPI and Reports no additional eye complaints Reports system reviewed and no additional complaints, except as documented Cardiovascular: Reports as per HPI and Reports no additional cardiovascular complaints Respiratory: Reports as per HPI and Reports no additional respiratory complaints Gastrointestinal: Reports as per HPI and Reports no additional gastrointestinal complaints Genitourinary: Reports no additional female genitourinary complaints Musculoskeletal: Reports no additional musculoskeletal complaints Skin/Breast: Reports system reviewed and no additional complaints, except as docu Psychiatric: Reports no additional psychiatric complaints Endocrine: Reports no additional endocrine complaints Hematologic/Lymphatic: Reports no additional hematologic/lymphatic complaints Allergic/Immunologic: Reports no additional allergic/immunologic complaints Reports system reviewed and no additional complaints, except as documented and Reports Abnormal speech present [facility] Past Medical History Medical History GERD (gastroesophageal reflux disease) Sleep apnea Asthma Hearing loss Diabetes mellitus, type 2 Social History Social History Household Members: Other Household Members Other:: 2 Housing: Other Housing Other:: [facility] Do you presently have visiting nurse or other home services: Yes Alcohol intake: never Patient Tobacco Use Status: Never used Tobacco Smoked in Last 30 Days: No e-Cigarette/Vaping Use: Never Used Use of substances other than those prescribed or required for medical reasons: No Advance Directives: No Advance Directives Information Provided: No Patient : No service: No Sexual orientation: Straight/Heterosexual Physical Exam ED Vital Signs: Vital Signs - 24 hr 03/01/24 21:07 03/01/24 22:49 03/01/24 23:53 Temperature 98.9 F 99.2 F 98.3 F Pulse Rate 93 80 86 Respiratory Rate 22 H 20 16 Blood Pressure 151/77 H 148/82 H 120/66 Pulse Oximetry 97 96 96 Oxygen Delivery Method Room Air Room Air Room Air 03/02/24 00:36 03/02/24 00:37 03/02/24 00:37 Temperature Pulse Rate 81 89 93 Respiratory Rate Blood Pressure 149/79 H 133/83 125/87 Pulse Oximetry Oxygen Delivery Method 03/02/24 04:33 Temperature 99.2 F Pulse Rate 81 Respiratory Rate 24 H Blood Pressure 136/84 Pulse Oximetry 98 Oxygen Delivery Method Room Air BMI result Body Mass Index 42.2 Vital signs have been reviewed and appear to be correct. Blood pressure elevated. Heart rate normal. Respiratory rate normal. Temperature normal. Oxygen saturation normal. Appearance: Alert. Oriented X3. No acute distress. Head: Normal external exam. Normocephalic. Atraumatic. No Gonzalez signs noted. No raccoon eyes noted Eyes: PERRLA. EOMI. Conjunctiva and sclera normal. Eyelids normal. ENT: TM's Normal. Pharynx normal. Uvula midline. Dry mucous membranes. No trismus noted. No drooling noted. No muffled voice noted. Neck: Normal inspection. Neck supple. FROM. No adenopathy. Thyroid Normal. No meningeal signs. No neck mass noted. CVS: Normal heart rate and rhythm. Heart sound normal. No murmurs noted. Pulses normal throughout. Respiratory: No respiratory distress. Painless inspiration. Breath sounds normal. No wheezes/rales/rhonchi noted. Chest nontender. No accessory muscle usage noted or decreased air movement noted. Abdomen: Soft and nontender. Bowel sounds normal in all 4 quadrants. No distention noted. No organomegaly noted. No visible injury noted. Back: No CVA tenderness. Full range of motion noted. Skin: Skin warm and dry. Normal skin color. Normal skin turgor. No rashes/lesions/lacerations noted. Extremities: No lower extremity edema. Extremities exhibit normal range of motion. Extremities nontender. Neuro: Oriented X 3. Cranial nerve exam: II-XII are grossly intact No motor deficit. No sensory deficit. Reflexes normal. Course Reevaluation(s) Reevaluation #1: 53-year-old female recent history of antibiotic use for pneumonia now presented with diarrhea. Presumptive C diff colitis, will obtain CT abdomen and pelvis, hydration, start oral vancomycin. Time: 00:21 Reevaluation #2: Patient is slightly feel better, lactic acidosis improved with IV fluids, no orthostatic hypotension, received 2 L of fluids, and oral vancomycin, patient is unable to give stool sample in the emergency department will treat for presumptive C diff. CT of the abdomen pelvis show no acute intra-abdominal abnormality. No indication for admission. Time: 05:27 Medical Decision Making Differential Diagnosis Differential Diagnoses: The differential diagnosis associated with the presentation includes (C diff, colitis, diverticulitis, pancreatitis, UTI, pyelonephritis, kidney stone, severe anemia, dehydration, electrolyte derangement.) Admission/Observation Consideration of admission/observation: Escalation of care including admission/observation considered Lab Data MDM Lab Attestation statement: I reviewed the patient's lab results. 03/01/24 21:38 03/01/24 21:38 Labs: Lab Results 03/01/24 03/01/24 03/02/24 Range/Units 21:06 21:38 00:53 WBC 12.8 H (4.8-10.8) X10*3/uL RBC 4.62 (4.20-5.50) X10*6/uL Hgb 11.2 L (12.0-16.0) g/dl Hct 35.9 L (37.0-47.0) % MCV 77.7 L (80.0-98.0) fL MCH 24.2 L (27.0-33.0) pg MCHC 31.2 (31.0-35.0) g/dl RDW 19.0 H (11.0-16.0) % Plt Count 238 (160-400) X10*3/uL MPV 9.7 (9.4-12.3) fL Immature Gran % (Auto) 2.1 H (0.0-0.4) % Neut % (Auto) 67.9 (45-73) % Lymph % (Auto) 22.1 (20-40) % [place] % (Auto) 6.0 (2-11) % Eos % (Auto) 1.6 (0-4) % Baso % (Auto) 0.3 (0-2) % Lymph # (Auto) 2.8 (1.2-4.9) X10*3/uL [place] # (Auto) 0.8 (0.1-1.2) X10*3/uL Eos # (Auto) 0.2 (0.0-0.4) X10*3/uL Baso # (Auto) 0.0 (0.0-0.2) X10*3/uL Abs Immat Gran (auto) 0.27 H (0.00-0.03) X10*3/uL Absolute Neuts (auto) 8.7 H (2.0-8.3) x10*3/uL Absolute Nucleated RBC 0.000 (0.0-0.012) X10*3/uL Nucleated RBC % (auto) 0.0 (0.0-0.2) /100WBC Sodium 136 (135-145) mmol/L Potassium 3.9 (3.3-5.1) mmol/L Chloride 100 (96-108) mmol/L Carbon Dioxide 27 (22-29) mmol/L Anion Gap 13 (12-20) BUN 7 L (9-16) mg/dL Creatinine 0.79 (0.5-1.4) mg/dL Estim Creat Clear Calc 94.6 Estimated GFR > 60 POC Glucose 341 H (60-115) mg/dL Random Glucose 333 H (60-115) mg/dL Lactic Acid 2.2 H* (0.5-2.0) mmol/L Lactic Acid F/U @ 2Hr (0.5-2.0) mmol/L Calcium 9.5 D (8.4-10.2) mg/dL Total Bilirubin 0.3 (0.0-1.0) mg/dL AST 16 (5-31) U/L ALT 16 (0-31) U/L Alkaline Phosphatase 149 H (39-117) U/L Total Protein 7.5 (6.5-8.0) g/dL Albumin 3.9 (3.5-5.0) g/dL Lipase 24 (8-78) U/L Urine Color Yellow Urine Appearance Clear Urine pH 7.0 (5.0-9.0) Ur Specific [place] >= 1.030 H (1.005-1.025) Urine Protein 100 (2+) H (Neg-Trace) mg/dL Urine Glucose (UA) >=1000 H (Negative) mg/dL Urine Ketones Trace (Negative) mg/dL Urine Blood Large (3+) H (Negative) Urine Nitrite Negative (Negative) Ur Leukocyte Esterase Negative (Negative) Urine RBC >20 H (0-2) /HPF Urine WBC 0-5 (0-5) /HPF Ur Squamous Epith Cells 3-5 (0-2) /HPF Urine Bacteria None Seen (None Seen) Hyaline Casts 0-2 (0-2) /LPF 03/02/24 Range/Units 01:38 WBC (4.8-10.8) X10*3/uL RBC (4.20-5.50) X10*6/uL Hgb (12.0-16.0) g/dl Hct (37.0-47.0) % MCV (80.0-98.0) fL MCH (27.0-33.0) pg MCHC (31.0-35.0) g/dl RDW (11.0-16.0) % Plt Count (160-400) X10*3/uL MPV (9.4-12.3) fL Immature Gran % (Auto) (0.0-0.4) % Neut % (Auto) (45-73) % Lymph % (Auto) (20-40) % [place] % (Auto) (2-11) % Eos % (Auto) (0-4) % Baso % (Auto) (0-2) % Lymph # (Auto) (1.2-4.9) X10*3/uL [place] # (Auto) (0.1-1.2) X10*3/uL Eos # (Auto) (0.0-0.4) X10*3/uL Baso # (Auto) (0.0-0.2) X10*3/uL Abs Immat Gran (auto) (0.00-0.03) X10*3/uL Absolute Neuts (auto) (2.0-8.3) x10*3/uL Absolute Nucleated RBC (0.0-0.012) X10*3/uL Nucleated RBC % (auto) (0.0-0.2) /100WBC Sodium (135-145) mmol/L Potassium (3.3-5.1) mmol/L Chloride (96-108) mmol/L Carbon Dioxide (22-29) mmol/L Anion Gap (12-20) BUN (9-16) mg/dL Creatinine (0.5-1.4) mg/dL Estim Creat Clear Calc Estimated GFR POC Glucose (60-115) mg/dL Random Glucose (60-115) mg/dL Lactic Acid (0.5-2.0) mmol/L Lactic Acid F/U @ 2Hr 1.3 (0.5-2.0) mmol/L Calcium (8.4-10.2) mg/dL Total Bilirubin (0.0-1.0) mg/dL AST (5-31) U/L ALT (0-31) U/L Alkaline Phosphatase (39-117) U/L Total Protein (6.5-8.0) g/dL Albumin (3.5-5.0) g/dL Lipase (8-78) U/L Urine Color Urine Appearance Urine pH (5.0-9.0) Ur Specific [place] (1.005-1.025) Urine Protein (Neg-Trace) mg/dL Urine Glucose (UA) (Negative) mg/dL Urine Ketones (Negative) mg/dL Urine Blood (Negative) Urine Nitrite (Negative) Ur Leukocyte Esterase (Negative) Urine RBC (0-2) /HPF Urine WBC (0-5) /HPF Ur Squamous Epith Cells (0-2) /HPF Urine Bacteria (None Seen) Hyaline Casts (0-2) /LPF Independent Interpretation I performed an independent interpretation of an: Plain X-Ray (Chest:Unchanged bilateral peribronchial vascular thickening without focal infiltrate. ) and CT Scan (Abdomen pelvis:Enlarged fatty liver. Right renal cyst. Lobulated heterogeneous uterus likely related to fibroids. No acute intra-abdominal process. ) Radiology Impression Discussion of test interpretation with radiology: I have reviewed the radiologist's reading. Medications Administered Discontinued Medications Generic Name Dose Route Start Last Admin Trade Name Freq PRN Reason Stop Dose Admin Sodium Chloride 1,000 mls @ 999 mls/hr 03/02/24 00:13 03/02/24 02:04 Ns IV 03/02/24 01:13 Infused .Q1H1M ONE Infusion Vancomycin HCl 250 mg 03/02/24 00:12 03/02/24 00:51 Vancomycin Hcl 125 Mg Capsule PO 03/02/24 00:13 250 mg ONCE ONE Administration Discharge Plan Discharge Clinical Impression: C. difficile colitis Patient Disposition: Home, Self-Care Instructions: C. Diff (Clostridioides Difficile) Infection (ED) Prescriptions: New vancomycin 125 mg capsule 125 mg PO QID 10 Days Qty: 40 0RF No Action ipratropium-albuterol 0.5 mg-3 mg(2.5 mg base)/3 mL Solution For Nebulization 3 ml inhalation Q4H PRN (Reason: Shortness Of Breath) Qty: 90 0RF dicyclomine 10 mg Capsule 10 mg PO QIDACHS PRN (Reason: IBS) Qty: 0 0RF quetiapine 100 mg Tablet 100 mg PO BEDTIME Qty: 0 0RF trazodone 100 mg Tablet 200 mg PO BEDTIME Qty: 0 0RF ondansetron 4 mg Tablet,Disintegrating 8 mg translingual TIDWM Qty: 0 0RF fluticasone propion-salmeterol [Advair Diskus] 100-50 mcg/dose blister with device 1 puff inhalation BID lactase [Lactaid] 3,000 unit Tablet 3,000 unit PO QID PRN (Reason: Lactose Intolerance) Incruse Ellipta 62.5 mcg/actuation Blister With Device 1 inh INHALATION QAM multivitamin [Daily-Emil] Tablet 1 tab PO DAILY 30 Days Qty: 30 0RF gabapentin 400 mg capsule 400 mg PO TID metformin 500 mg tablet extended release 24 hr 1,000 mg PO DAILY piroxicam 10 mg capsule 10 mg PO BID cholecalciferol (vitamin D3) 25 mcg (1,000 unit) tablet 25 mcg PO QAM cetirizine 10 mg tablet 10 mg PO DAILY famotidine 40 mg tablet 40 mg PO BID pantoprazole 40 mg tablet,delayed release (DR/EC) 40 mg PO BID docusate sodium 100 mg capsule 100 mg PO QAM hydroxyzine pamoate 50 mg capsule 100 mg PO TID PRN (Reason: Anxiety) fluticasone propionate 50 mcg/actuation spray,suspension 1 spray intranasal DAILY carbamazepine 200 mg Tablet Extended Release 12 Hr 800 mg PO BID 30 Days Qty: 240 0RF simethicone [Gas Relief (simethicone)] 80 mg Tablet,Chewable 80 mg PO QIDWMHS PRN (Reason: flatulence) 30 Days Qty: 60 0RF prazosin 5 mg capsule 5 mg PO BEDTIME 30 Days Qty: 30 0RF Referrals: Melissa Castrejon PA [Primary Care Provider] - Print Language: Armenian
--- NOTE | 2024-03-02 00:19 | MHC.EDTECH ---
MD Brantley ordering lactic to be done after fluids are complete
[2024-03-02 00:36] VITALS: BP 149/79; PULSE 81
[2024-03-02 00:37] VITALS: BP 125/87; BP 133/83; PULSE 89; PULSE 93
[2024-03-02] MEDS: vancomycin HCL 125 MG CAPSULE 250 MG PO (00:51)
[2024-03-02] MEDS: 0.9 % Sodium Chloride 1,000 ML 999 ML IV (00:51)
[2024-03-02 01:02] LABS: Appearance Urine Clear; Color Urine Yellow; Glucose Urine UA >=1000 mg/dL (Negative); Leukocyte Esterase Urine Negative (Negative); Nitrite Urine Negative (Negative); Specific Gravity - Urine >= 1.030 (1.005-1.025); UMIC TRIGGER UACC YES; Urine Blood Large (3+) (Negative); Urine Ketones Trace mg/dL (Negative); Urine Protein 100 (2+) mg/dL (Neg-Trace)
[2024-03-02 01:05] LABS: Bacteria Urine None Seen (None Seen); Hyaline Casts Urine 0-2 /LPF (0-2); RBC Urine >20 /HPF (0-2); WBC Urine 0-5 /HPF (0-5)
[2024-03-02 01:53] LABS: ~Lactic Acid-LAB USE ONLY 1.3 mmol/L (0.5-2.0)
[2024-03-02 04:33] VITALS: BP 136/84; PULSE 81; RESP 24; TEMP 37.3; O2SAT 98
[2024-03-02 06:23] VITALS: BP 151/102; PULSE 79; RESP 18; TEMP 37.2; O2SAT 99
[2024-03-02 06:24] VITALS: BP 151/102; PULSE 79; RESP 18; TEMP 37.2; O2SAT 99
== END 2024-03-02 06:24 | disposition home or self-care (01) ==
PROVIDERS: Emergency Provider Emergency Medicine; PCP Physician Assistant
DX: A04.72 Enterocolitis due to Clostridium difficile, not specified as recurrent (principal); R11.2 Nausea with vomiting, unspecified; R19.7 Diarrhea, unspecified; R94.31 Abnormal electrocardiogram [ECG] [EKG]; Z79.899 Other long term (current) drug therapy
CPT/HCPCS: 36415; 71045; 74176; 80053; 81001; 82947; 83605; 83690; 85025; 87040; 93005; 96360; 99284; 99285

== ENCOUNTER → 2024-03-01 21:24 | Outpatient (BNV) | payer OTHER, SELFPAY | PROVIDERS: Emergency Provider Emergency Medicine; PCP Physician Assistant; Visit Provider Internal Medicine | DX: R94.31 Abnormal electrocardiogram [ECG] [EKG] (principal); R11.2 Nausea with vomiting, unspecified | CPT/HCPCS: 93010 ==

== ENCOUNTER 2024-03-10 19:20 | Emergency (ER) | payer OTHER, SELFPAY ==
[2024-03-10 19:45] VITALS: BP 138/84; BP 147/80; PULSE 63; PULSE 90; RESP 16; TEMP 37.7; O2SAT 92; O2SAT 95; BMI 43.7
[2024-03-10 19:49] VITALS: RESP 16
[2024-03-10 20:23] LABS: Amphetamine Screen Urine Not Detected (Not Detect); Barbiturates, Urine Not Detected (Not Detect); Benzodiazepines Screen Urine Not Detected (Not Detect); Buprenorphine Scr Not Detected (Not Detect); Cannabinoid Screen Urine Not Detected (Not Detect); Cocaine Screen Urine Not Detected (Not Detect); Fentanyl, urine Not Detected (Not Detect); Methadone Screen, Urine Not Detected (Not Detect); Opiate Screen Urine Not Detected (Not Detect); Oxycodone Screen Urine Not Detected (Not Detect); Phencyclidine Screen Urine Not Detected (Not Detect)
[2024-03-10 20:24] LABS: Glucose, Whole Blood 376 mg/dL (60-115)
[2024-03-10 20:28] LABS: MANUAL DIFF FLAG NO
[2024-03-10 20:41] LABS: Basophils Percent Auto 0.4 % (0-2); Eosinophils Absolute Auto 0.2 X10*3/uL (0.0-0.4); Eosinophils Percent Auto 1.5 % (0-4); Hematocrit 35.8 % (37.0-47.0); Hemoglobin 11.6 g/dl (12.0-16.0); Lymphocytes Absolute Auto 2.4 X10*3/uL (1.2-4.9); Lymphocytes Percent Auto 23.1 % (20-40); Mean Corpuscular HGB Conc 32.4 g/dl (31.0-35.0); Mean Corpuscular Hemoglobin 25.2 pg (27.0-33.0); Mean Corpuscular Volume 77.8 fL (80.0-98.0); Mean Platelet Volume 9.7 fL (9.4-12.3); Monocytes Absolute Auto 0.8 X10*3/uL (0.1-1.2); Monocytes Percent Auto 7.7 % (2-11); Neutrophils Absolute Auto 6.8 x10*3/uL (2.0-8.3); Neutrophils Percent Auto 66.3 % (45-73); Platelet Count 278 X10*3/uL (160-400); Red Cell Distribution Width 18.8 % (11.0-16.0); White Blood Count 10.2 X10*3/uL (4.8-10.8)
--- NOTE | 2024-03-10 21:05 | PC.NURSE ---
Nora comes to the ED today with multiple complaints. She reports she has been disassociating and has not slept in 2 weeks. She reports she is frustrated by this and is now having self harm thoughts. She states she has no specific plan but later elaborates that she would cut herself if she had no self control . Patient does appear restless at times but then promptly lays back down in bed. Patient reports she is a type II diabetic and has not taken her diabetic medications today. PA aware of elevated blood sugar. Continue plan of care for med clearance and then CARE team ben
[2024-03-10 21:17] LABS: Alanine Aminotransferase 20 U/L (0-31); Alkaline Phosphatase 133 U/L (39-117); Anion Gap 13 (12-20); Aspartate Amino Transferase 21 U/L (5-31); Bilirubin Total 0.3 mg/dL (0.0-1.0); Blood Urea Nitrogen 8 mg/dL (9-16); Calcium 9.1 mg/dL (8.4-10.2); Carbon Dioxide 27 mmol/L (22-29); Chloride 98 mmol/L (96-108); Estimated Glomerular Filt Rate > 60; Ethanol < 10 mg/dL; Glucose Random 391 mg/dL (60-115); Potassium 3.8 mmol/L (3.3-5.1); Sodium 134 mmol/L (135-145); Total Protein 7.3 g/dL (6.5-8.0)
--- NOTE | 2024-03-10 21:23 | ED_ITS ---
HPI - Psych General Chief Complaint: Psychiatric Symptoms Stated Complaint: CRISIS Time Seen by Provider: 03/10/24 20:10 Source: patient Limitations: no limitations History of Present Illness ED Provider: Darell LONGORIA HPI Narrative: 53-year-old female with history of diabetes, sleep apnea and bipolar disorder presents with SI. Patient is coming from her long term, she has been having increasing thoughts of self-harm and worsening depression. Patient denies any new psychosocial stressors. Denies use of illicit substances, alcohol. Denies HI. Patient does not have a plan for self-harm. Related Data Home Medications ?Medication ?Instructions ?Recorded ?Confirmed fluticasone 100 mcg-salmeterol 50 1 puff inhalation BID 08/01/21 03/10/24 mcg/dose blistr powdr for inhalation (Advair Diskus) umeclidinium 62.5 mcg/actuation 1 inh inhalation QAM 08/01/21 03/10/24 blister powder for inhalation (Incruse Ellipta) cholecalciferol (vitamin D3) 25 25 mcg PO QAM 12/19/22 03/10/24 mcg (1,000 unit) tablet docusate sodium 100 mg capsule 100 mg PO QAM 12/19/22 03/10/24 gabapentin 400 mg capsule 400 mg PO TID 12/19/22 03/10/24 metformin 500 mg tablet,extended 1,000 mg PO DAILY 12/19/22 03/10/24 release 24 hr pantoprazole 40 mg tablet,delayed 40 mg PO BID 12/19/22 03/10/24 release fluticasone propionate 50 1 spray intranasal DAILY 12/20/22 03/10/24 mcg/actuation nasal spray,suspension ferrous sulfate 325 mg (65 mg 325 mg PO DAILY 03/10/24 03/10/24 iron) tablet (FeroSul) hydroxyzine pamoate 100 mg capsule 100 mg PO BEDTIME 03/10/24 03/10/24 hydroxyzine pamoate 50 mg capsule 100 mg PO BID PRN Anxiety 03/10/24 03/10/24 mometasone-formoterol HFA 200 2 puff inhalation BID 03/10/24 03/10/24 mcg-5 mcg/actuation aerosol inhaler (Dulera) quetiapine 100 mg tablet 200 mg PO BEDTIME 03/10/24 03/10/24 sitagliptin phosphate 100 mg 100 mg PO DAILY 03/10/24 03/10/24 tablet (Januvia) Previous Rx's ?Medication ?Instructions ?Recorded multivitamin (Daily-Emil tablet) 1 tab PO DAILY 30 days #30 tabs 08/15/21 ipratropium 0.5 mg-albuterol 3 mg 3 ml inhalation Q4H PRN Shortness 01/24/22 (2.5 mg base)/3 mL nebulization Of Breath #90 mL soln trazodone 100 mg tablet 200 mg (2 x 100 mg) PO BEDTIME #0 01/24/22 tabs carbamazepine 200 mg 800 mg (4 x 200 mg) PO BID 30 days 12/26/22 tablet,extended release,12 hr #240 tabs prazosin 5 mg capsule 5 mg PO BEDTIME 30 days #30 caps 01/01/23 vancomycin 125 mg capsule 125 mg PO QID 10 days #40 caps 03/02/24 Allergies Allergy/AdvReac Type Severity Reaction Status Date / Time sulfamethoxazole Allergy Intermediate Rash Verified 03/01/24 21:14 [From Bactrim] trimethoprim [From Bactrim] Allergy Intermediate Rash Verified 03/01/24 21:14 adhesive tape Allergy Rash Verified 03/01/24 21:14 [place] And Derivatives Allergy Gastrointestinal Verified 03/01/24 21:14 Upset Benzodiazepines AdvReac Intermediate Hives Verified 03/10/24 19:48 diazepam [From Valium] AdvReac Intermediate Irritable Verified 03/01/24 21:14 Review of Systems 2 Review of Systems: Yes all other systems are reviewed and are negative Constitutional: Constitutional: Denies fever(s) Cardiovascular: Cardiovascular: Denies chest pain and Denies dyspnea Respiratory: Respiratory: Denies dyspnea Gastrointestinal: Gastrointestinal: Denies nausea PMFSH Past Medical History Attestation statement: The following information was validated with the patient. Medical History GERD (gastroesophageal reflux disease) Sleep apnea Asthma Hearing loss Diabetes mellitus, type 2 Social History Social History Household Members: Other Household Members Other:: 2 Housing: Other Housing Other:: [employer] long term Do you presently have visiting nurse or other home services: Yes Alcohol intake: never Patient Tobacco Use Status: Never used Tobacco Smoked in Last 30 Days: No e-Cigarette/Vaping Use: Never Used Use of substances other than those prescribed or required for medical reasons: No Advance Directives: No Advance Directives Information Provided: No Patient : No service: No Sexual orientation: Straight/Heterosexual Physical Exam 2 Vital Signs: Vital Signs: Last Vital Signs Temp 99.8 F 03/10/24 19:45 Pulse 90 03/10/24 19:45 Resp 16 03/10/24 19:49 BP 147/80 H 03/10/24 19:45 Pulse Ox 95 03/10/24 19:45 O2 Del Method Room Air 03/10/24 19:45 BMI result Body Mass Index 43.7 Const: Other: Alert, appears older than stated age, cachectic Orientation/consciousness: patient oriented x3 Resp: Other: Nonlabored respiration Cardio: Other: Normal peripheral perfusion Neuro: General: patient oriented x3, no focal motor deficits and CN's II-XI intact bilaterally Psych: Other: Yelling out , to patients and staff walking by, redirectable Medications Administered Discontinued Medications Generic Name Dose Route Start Last Admin Trade Name Raiq PRN Reason Stop Dose Admin Metformin HCl 1,000 mg 03/10/24 21:31 03/10/24 21:51 Metformin Hcl 1,000 Mg Tablet PO 03/10/24 21:32 1,000 mg ONCE ONE Administration Medical Decision Making Medical Decision Making [facility] Narrative: 53-year-old female with history of diabetes, sleep apnea and bipolar disorder presents with SI. Patient is coming from her long term, she has been having increasing thoughts of self-harm and worsening depression. Patient denies any new psychosocial stressors. Denies use of illicit substances, alcohol. Denies HI. Patient does not have a plan for self-harm Problem: Psychiatric illness, diabetes History: Per patient I have considered the following differential diagnoses: HI, SI, decompensated psychiatric illness, drug/alcohol intoxication Plan: Screening labs including serum ethanol and U tox have been ordered. The patient will be referred to the behavioral health team. I have independently reviewed the following tests: Labs: No leukocytosis, not anemic, U tox negative, serum ethanol negative, blood sugars 370, she is typically hyperglycemic, we will give her her prescribed metformin Differential Diagnosis Differential Diagnoses: The differential diagnosis associated with the presentation includes Lab Data 03/10/24 20:21 03/10/24 20:21 Labs: Lab Results 03/10/24 03/10/24 03/10/24 Range/Units 19:54 20:18 20:21 WBC 10.2 (4.8-10.8) X10*3/uL RBC 4.60 (4.20-5.50) X10*6/uL Hgb 11.6 L (12.0-16.0) g/dl Hct 35.8 L (37.0-47.0) % MCV 77.8 L (80.0-98.0) fL MCH 25.2 L (27.0-33.0) pg MCHC 32.4 (31.0-35.0) g/dl RDW 18.8 H (11.0-16.0) % Plt Count 278 (160-400) X10*3/uL MPV 9.7 (9.4-12.3) fL Immature Gran % (Auto) 1.0 H (0.0-0.4) % Neut % (Auto) 66.3 (45-73) % Lymph % (Auto) 23.1 (20-40) % [place] % (Auto) 7.7 (2-11) % Eos % (Auto) 1.5 (0-4) % Baso % (Auto) 0.4 (0-2) % Lymph # (Auto) 2.4 (1.2-4.9) X10*3/uL [place] # (Auto) 0.8 (0.1-1.2) X10*3/uL Eos # (Auto) 0.2 (0.0-0.4) X10*3/uL Baso # (Auto) 0.0 (0.0-0.2) X10*3/uL Abs Immat Gran (auto) 0.10 H (0.00-0.03) X10*3/uL Absolute Neuts (auto) 6.8 (2.0-8.3) x10*3/uL Absolute Nucleated RBC 0.000 (0.0-0.012) X10*3/uL Nucleated RBC % (auto) 0.0 (0.0-0.2) /100WBC Sodium 134 L (135-145) mmol/L Potassium 3.8 (3.3-5.1) mmol/L Chloride 98 (96-108) mmol/L Carbon Dioxide 27 (22-29) mmol/L Anion Gap 13 (12-20) BUN 8 L (9-16) mg/dL Creatinine 0.82 (0.5-1.4) mg/dL Estim Creat Clear Calc 93.0 Estimated GFR > 60 POC Glucose 376 H* (60-115) mg/dL Random Glucose 391 H* (60-115) mg/dL Calcium 9.1 (8.4-10.2) mg/dL Total Bilirubin 0.3 (0.0-1.0) mg/dL AST 21 (5-31) U/L ALT 20 (0-31) U/L Alkaline Phosphatase 133 H (39-117) U/L Total Protein 7.3 (6.5-8.0) g/dL Albumin 4.0 (3.5-5.0) g/dL Urine Color Red A Urine Appearance Turbid Urine pH 6.0 (5.0-9.0) Ur Specific [place] 1.015 (1.005-1.025) Urine Protein 30 (1+) H (Neg-Trace) mg/dL Urine Glucose (UA) >=1000 H (Negative) mg/dL Urine Ketones Trace (Negative) mg/dL Urine Blood Large (3+) H (Negative) Urine Nitrite Negative (Negative) Ur Leukocyte Esterase Negative (Negative) Urine RBC >20 H (0-2) /HPF Urine WBC 0-5 (0-5) /HPF Ur Squamous Epith Cells 0-2 (0-2) /HPF Urine Bacteria Trace (None Seen) Hyaline Casts 0-2 (0-2) /LPF Urine Opiates Screen Not Detected (Not Detect) Ur Buprenorphine Scrn Not Detected (Not Detect) ng/mL Ur Oxycodone Screen Not Detected (Not Detect) ng/mL Urine Methadone Screen Not Detected (Not Detect) ng/mL Urine Fentanyl Screen Not Detected (Not Detect) Ur Barbiturates Screen Not Detected (Not Detect) Ur Phencyclidine Scrn Not Detected (Not Detect) Ur Amphetamines Screen Not Detected (Not Detect) U Benzodiazepines Scrn Not Detected (Not Detect) Urine Cocaine Screen Not Detected (Not Detect) U Marijuana (THC) Screen Not Detected (Not Detect) Ethyl Alcohol < 10 mg/dL Discharge Plan Discharge Clinical Impression: Suicidal ideation Patient Disposition: Still a Patient Prescriptions: No Action ipratropium-albuterol 0.5 mg-3 mg(2.5 mg base)/3 mL Solution For Nebulization 3 ml inhalation Q4H PRN (Reason: Shortness Of Breath) Qty: 90 0RF trazodone 100 mg Tablet 200 mg PO BEDTIME Qty: 0 0RF fluticasone propion-salmeterol [Advair Diskus] 100-50 mcg/dose blister with device 1 puff inhalation BID Incruse Ellipta 62.5 mcg/actuation Blister With Device 1 inh INHALATION QAM multivitamin [Daily-Emil] Tablet 1 tab PO DAILY 30 Days Qty: 30 0RF gabapentin 400 mg capsule 400 mg PO TID metformin 500 mg tablet extended release 24 hr 1,000 mg PO DAILY cholecalciferol (vitamin D3) 25 mcg (1,000 unit) tablet 25 mcg PO QAM pantoprazole 40 mg tablet,delayed release (DR/EC) 40 mg PO BID docusate sodium 100 mg capsule 100 mg PO QAM fluticasone propionate 50 mcg/actuation spray,suspension 1 spray intranasal DAILY carbamazepine 200 mg Tablet Extended Release 12 Hr 800 mg PO BID 30 Days Qty: 240 0RF prazosin 5 mg capsule 5 mg PO BEDTIME 30 Days Qty: 30 0RF vancomycin 125 mg capsule 125 mg PO QID 10 Days Qty: 40 0RF quetiapine 100 mg tablet 200 mg PO BEDTIME ferrous sulfate [FeroSul] 325 mg (65 mg iron) tablet 325 mg PO DAILY Januvia 100 mg tablet 100 mg PO DAILY Dulera 200-5 mcg/actuation HFA aerosol inhaler 2 puff inhalation BID hydroxyzine pamoate 100 mg capsule 100 mg PO BEDTIME hydroxyzine pamoate 50 mg capsule 100 mg PO BID PRN (Reason: Anxiety) Interventions: [place]-Suicide Risk Severity Scale Last Done: 03/10/24 19:49 Print Language: Australian
[2024-03-10] MEDS: metFORMIN HCl 1,000 MG TABLET 1000 MG PO (21:51)
[2024-03-10 22:24] LABS: Appearance Urine Turbid; Color Urine Red
[2024-03-10 22:25] LABS: Glucose Urine UA >=1000 mg/dL (Negative); Leukocyte Esterase Urine Negative (Negative); Nitrite Urine Negative (Negative); Specific Gravity - Urine 1.015 (1.005-1.025); UMIC TRIGGER UACC YES; Urine Blood Large (3+) (Negative); Urine Ketones Trace mg/dL (Negative); Urine Protein 30 (1+) mg/dL (Neg-Trace)
[2024-03-10 22:26] LABS: Bacteria Urine Trace (None Seen); Hyaline Casts Urine 0-2 /LPF (0-2); RBC Urine >20 /HPF (0-2); Squamous Epithelial Cell Urine 0-2 /HPF (0-2); WBC Urine 0-5 /HPF (0-5)
[2024-03-11] MEDS: hydrOXYzine HCL 50 MG TABLET 100 MG PO (00:14)
[2024-03-11 01:03] VITALS: BP 143/79; PULSE 71; RESP 16; TEMP 36.8; O2SAT 92
[2024-03-11] MEDS: traZODone HCL 100 MG TABLET 200 MG PO (01:22)
[2024-03-11] MEDS: Omeprazole 20 MG CAPSULE.DR PO (05:53)
[2024-03-11] MEDS: Ondansetron ODT 4 MG TAB.RAPDIS TRANSLINGU (05:53)
[2024-03-11 08:12] VITALS: BP 144/97; PULSE 85; RESP 20; TEMP 36.7; O2SAT 99
[2024-03-11] MEDS: vancomycin HCL 125 MG CAPSULE PO (08:24)
[2024-03-11] MEDS: Cholecalciferol (Vitamin D3) 25 MCG TABLET PO (08:24)
[2024-03-11] MEDS: carBAMazepine ER 200 MG TAB.ER.12H 800 MG PO (08:24)
[2024-03-11] MEDS: SITagliptin Phosphate 100 MG TABLET PO (08:24)
[2024-03-11] MEDS: Ferrous Sulfate 324 MG TABLET.DR PO (08:24)
[2024-03-11] MEDS: Multivitamin TABLET 1 TAB PO (08:24)
[2024-03-11] MEDS: Docusate Sodium 100 MG CAPSULE PO (08:24)
[2024-03-11] MEDS: Gabapentin 400 MG CAPSULE PO (08:34)
[2024-03-11 08:45] LABS: Glucose, Whole Blood 391 mg/dL (60-115)
[2024-03-11 10:14] VITALS: BP 142/86; PULSE 91; RESP 14; TEMP 36.6; O2SAT 94
== END 2024-03-11 10:16 | disposition home or self-care (01) ==
PROVIDERS: Emergency Medicine; Emergency Provider Emergency Medicine; PCP Physician Assistant
DX: F31.9 Bipolar disorder, unspecified (principal); R45.851 Suicidal ideations; Z79.899 Other long term (current) drug therapy; Z51.81 Encounter for therapeutic drug level monitoring
CPT/HCPCS: 36415; 80053; 80307; 81001; 81003; 82947; 85025; 99285; S9485

== ENCOUNTER 2024-03-24 19:37 | Emergency (ER) | payer MEDICARE, MEDICAID, SELFPAY ==
--- NOTE | ~2024-03-24 | XR_ITS ---
EXAMINATION: XR chest 2V CLINICAL INFORMATION: cough COMPARISON: Chest radiograph 03/01/2024 TECHNIQUE: 2 views of the chest FINDINGS/ XR/XR chest 2V IMPRESSION: Bibasilar hazy opacities may reflect aspiration, atelectasis or, or infection. No effusion or pneumothorax. Unchanged cardiomediastinal silhouette. Electronically signed by: Teresa Ramos MD 03/24/2024 08:37 PM EDT
[2024-03-24 19:44] VITALS: BP 140/96; PULSE 111; O2SAT 99
[2024-03-24 19:46] VITALS: BP 174/103; PULSE 94; RESP 18; TEMP 37.2; O2SAT 96; BMI 44.6
--- NOTE | 2024-03-24 19:47 | ED.GENADULT ---
HPI - General Adult General Chief complaint: General Medical Stated complaint: MIGRAINE, WEAKNESS X1 DAY PER EMS Time Seen by Provider: 03/24/24 20:32 Source: patient Mode of arrival: ambulatory Limitations: no limitations History of Present Illness ED Provider: Dr. Leilani Murcia HPI narrative: patient comes to the emergency room complaining generalized malaise, headache, coughing. Patient states that about a month ago she was diagnosed with pneumonia, was treated with Augmentin. Patient states that initially she started getting better, but over last few days she has been coughing, feels just like when she had pneumonia. Patient denies nausea vomiting diarrhea, no shortness of breath. Related Data Home Medications ?Medication ?Instructions ?Recorded ?Confirmed fluticasone 100 mcg-salmeterol 50 1 puff inhalation BID 08/01/21 03/10/24 mcg/dose blistr powdr for inhalation (Advair Diskus) umeclidinium 62.5 mcg/actuation 1 inh inhalation QAM 08/01/21 03/10/24 blister powder for inhalation (Incruse Ellipta) cholecalciferol (vitamin D3) 25 25 mcg PO QAM 12/19/22 03/10/24 mcg (1,000 unit) tablet docusate sodium 100 mg capsule 100 mg PO QAM 12/19/22 03/10/24 gabapentin 400 mg capsule 400 mg PO TID 12/19/22 03/10/24 metformin 500 mg tablet,extended 1,000 mg PO DAILY 12/19/22 03/10/24 release 24 hr pantoprazole 40 mg tablet,delayed 40 mg PO BID 12/19/22 03/10/24 release fluticasone propionate 50 1 spray intranasal DAILY 12/20/22 03/10/24 mcg/actuation nasal spray,suspension ferrous sulfate 325 mg (65 mg 325 mg PO DAILY 03/10/24 03/10/24 iron) tablet (FeroSul) hydroxyzine pamoate 100 mg capsule 100 mg PO BEDTIME 03/10/24 03/10/24 hydroxyzine pamoate 50 mg capsule 100 mg PO BID PRN Anxiety 03/10/24 03/10/24 mometasone-formoterol HFA 200 2 puff inhalation BID 03/10/24 03/10/24 mcg-5 mcg/actuation aerosol inhaler (Dulera) quetiapine 100 mg tablet 200 mg PO BEDTIME 03/10/24 03/10/24 sitagliptin phosphate 100 mg 100 mg PO DAILY 03/10/24 03/10/24 tablet (Januvia) Previous Rx's ?Medication ?Instructions ?Recorded multivitamin (Daily-Emil tablet) 1 tab PO DAILY 30 days #30 tabs 08/15/21 ipratropium 0.5 mg-albuterol 3 mg 3 ml inhalation Q4H PRN Shortness 01/24/22 (2.5 mg base)/3 mL nebulization Of Breath #90 mL soln trazodone 100 mg tablet 200 mg (2 x 100 mg) PO BEDTIME #0 01/24/22 tabs carbamazepine 200 mg 800 mg (4 x 200 mg) PO BID 30 days 12/26/22 tablet,extended release,12 hr #240 tabs prazosin 5 mg capsule 5 mg PO BEDTIME 30 days #30 caps 01/01/23 vancomycin 125 mg capsule 125 mg PO QID 10 days #40 caps 03/02/24 Lactobacillus rhamnosus GG 15 1 cap PO DAILY #30 caps 03/24/24 billion cell sprinkle capsule (Culturelle) cefuroxime axetil 500 mg tablet 500 mg PO BID #19 tabs 03/24/24 doxycycline hyclate 100 mg capsule 100 mg PO BID #19 caps 03/24/24 ibuprofen 600 mg tablet 600 mg PO TID PRN fever or pain 03/24/24 #14 tabs levofloxacin 750 mg tablet 750 mg PO DAILY #5 tabs 03/25/24 Allergies Allergy/AdvReac Type Severity Reaction Status Date / Time sulfamethoxazole Allergy Intermediate Rash Verified 03/24/24 19:49 [From Bactrim] trimethoprim [From Bactrim] Allergy Intermediate Rash Verified 03/24/24 19:49 adhesive tape Allergy Rash Verified 03/24/24 19:49 [place] And Derivatives Allergy Gastrointestinal Verified 03/24/24 19:49 Upset Benzodiazepines AdvReac Intermediate Hives Verified 03/24/24 19:49 diazepam [From Valium] AdvReac Intermediate Irritable Verified 03/24/24 19:49 Review of Systems Review of Systems: Constitutional : No Weight loss, Complaining of fatigue and generalized malaise ENT/Mouth : No Hearing loss, No Ear Pain, No Nasal Congestion, No Sinus Pain, No Hoarseness, No sore throat, No Rhinorrhea, No Swallowing Difficulty Eyes: No Eye Pain, No Swelling, No Redness, No Foreign Body, No Discharge, No Vision Changes Cardiovascular : No Chest Pain, No SOB, No Dyspnea on Exertion, No Orthopnea, No Edema, No Palpitations Respiratory : complaining of cough, bilateral low discomfort, no shortness of breath Gastrointestinal : no Vomiting, No Diarrhea, No Constipation, No abdominal Pain, No Hematochezia, No Melena Genitourinary : no irregular bleeding, No Dysuria, No Urinary Frequency, No Hematuria, No Urinary Incontinence, No Urgency, No Flank Pain, No Urinary Flow Changes, No Hesitancy Musculoskeletal : No joint pain, No Myalgias, No Joint Swelling Skin : No Skin Lesions, No rash Neuro : No Weakness, No Numbness, No Paresthesias, No Loss of Consciousness, No Dizziness, No Headache Psych : No Anxiety/Panic, No Depression, No SI/HI/AH/VH, No Social Issues, Heme/Lymph: No Bruising, No Bleeding,No Lymphadenopathy Endocrine : No Polyuria, No Polydipsia, No Temperature Intolerance [facility] Past Medical History Medical History GERD (gastroesophageal reflux disease) Sleep apnea Asthma Hearing loss Diabetes mellitus, type 2 Social History Social History Household Members: Other Household Members Other:: 2 Housing: Other Housing Other:: [employer] residential Do you presently have visiting nurse or other home services: Yes Alcohol intake: never Patient Tobacco Use Status: Never used Tobacco Smoked in Last 30 Days: No e-Cigarette/Vaping Use: Never Used Advance Directives: No Advance Directives Information Provided: No Do you have a plan to hurt others: No Plan Patient : No service: No Sexual orientation: Straight/Heterosexual Physical Exam ED Vital Signs: Vital Signs - 24 hr 03/24/24 19:46 03/24/24 22:02 Temperature 98.9 F 98.9 F Pulse Rate 94 94 Respiratory Rate 18 18 Blood Pressure 174/103 H 174/103 H Pulse Oximetry 96 96 Oxygen Delivery Method Room Air Room Air BMI result Body Mass Index 44.6 Const Other: Appearance: Alert. Oriented X3. No acute distress. Eyes: Pupils equal, round and reactive to light. ENT: Pharynx normal. Neck: Normal inspection. Neck supple. No lymph nodes noted. No crepitus CVS: Normal heart rate and rhythm. Pulses normal. Normal S1 and S2 Respiratory: No respiratory distress. bilateral rales, No Wheezing. No rales Abdomen: Soft and nontender. No rigidity. No distention. Skin: Skin warm and dry. Normal skin color. Normal skin turgor. Extremities: No lower extremity edema. No Lacerations. No Rash Neuro: Oriented X 3. No motor deficit. No sensory deficit. Moving all extremities. No slurred speech. CN 2 through 12 grossly intact Psych: calm, cooperative, normal affect Course Course Course Narrative: RME, this is a rapid medical exam performed by Kermit Lee please refer to primary provider for complete H&P- 53 year old female presents for evaluation of headache, weakness, cough. She reports that she recently had pneumonia and C diff. She endorses cough and generalized weakness. She also complains of headache. Denies any fevers Reevaluation(s) Reevaluation #1: Addendum 03/25/24 10:30: Received call from pharmacy stating that patient recently prescribed cefuroxime, pharmacy stating they have documented allergy to cephalosporins with unknown reaction. Advised pharmacy to cancel this prescription, new prescription for levofloxacin sent to pharmacy. Medications Administered Discontinued Medications Generic Name Dose Route Start Last Admin Trade Name Freq PRN Reason Stop Dose Admin Cefuroxime Axetil 500 mg 03/24/24 21:32 03/24/24 21:54 Cefuroxime Axetil 500 Mg Tablet PO 03/24/24 21:33 500 mg ONCE ONE Administration Doxycycline Monohydrate 100 mg 03/24/24 21:32 03/24/24 21:54 Doxycycline Monohydrate 100 Mg Capsule PO 03/24/24 21:33 100 mg ONCE ONE Administration Ibuprofen 600 mg 03/24/24 21:32 03/24/24 21:54 Ibuprofen 600 Mg Tablet PO 03/24/24 21:33 600 mg ONCE ONE Administration Medical Decision Making Medical Decision Making [facility] Narrative: my interpretation of labs: White blood cell count within normal limits, normal chemistry, glucose 131, normal LFTs, COVID negative - my interpretation of chest x-ray, possible bilateral pneumonia. oxygen saturation 96% even when walking - patient was given the 1st dose of antibiotics, cefuroxime and doxycycline. - PEs not suspected, wells score criteria for PE is negative/0 Differential Diagnosis Differential Diagnoses: The differential diagnosis associated with the presentation includes ( Viral URI, pneumonia) Admission/Observation Consideration of admission/observation: Escalation of care including admission/observation considered ( given patient's repeated pneumonia, observation was considered) Lab Data MDM Lab Attestation statement: I reviewed the patient's lab results. 03/24/24 20:06 03/24/24 20:06 Labs: Lab Results 03/24/24 Range/Units 20:06 WBC 8.7 (4.8-10.8) X10*3/uL RBC 4.50 (4.20-5.50) X10*6/uL Hgb 11.6 L (12.0-16.0) g/dl Hct 36.6 L (37.0-47.0) % MCV 81.3 (80.0-98.0) fL MCH 25.8 L (27.0-33.0) pg MCHC 31.7 (31.0-35.0) g/dl RDW 18.2 H (11.0-16.0) % Plt Count 213 (160-400) X10*3/uL MPV 9.2 L (9.4-12.3) fL Immature Gran % (Auto) 0.5 H (0.0-0.4) % Neut % (Auto) 69.3 (45-73) % Lymph % (Auto) 22.9 (20-40) % [place] % (Auto) 5.5 (2-11) % Eos % (Auto) 1.5 (0-4) % Baso % (Auto) 0.3 (0-2) % Lymph # (Auto) 2.0 (1.2-4.9) X10*3/uL [place] # (Auto) 0.5 (0.1-1.2) X10*3/uL Eos # (Auto) 0.1 (0.0-0.4) X10*3/uL Baso # (Auto) 0.0 (0.0-0.2) X10*3/uL Abs Immat Gran (auto) 0.04 H (0.00-0.03) X10*3/uL Absolute Neuts (auto) 6.1 (2.0-8.3) x10*3/uL Absolute Nucleated RBC 0.000 (0.0-0.012) X10*3/uL Nucleated RBC % (auto) 0.0 (0.0-0.2) /100WBC Sodium 137 (135-145) mmol/L Potassium 4.0 (3.3-5.1) mmol/L Chloride 101 (96-108) mmol/L Carbon Dioxide 27 (22-29) mmol/L Anion Gap 13 (12-20) BUN 13 (9-16) mg/dL Creatinine 0.65 (0.5-1.4) mg/dL Estim Creat Clear Calc 118.7 Estimated GFR > 60 Random Glucose 131 H (60-115) mg/dL Calcium 9.5 (8.4-10.2) mg/dL Total Bilirubin 0.2 (0.0-1.0) mg/dL AST 18 (5-31) U/L ALT 16 (0-31) U/L Alkaline Phosphatase 126 H (39-117) U/L Total Protein 7.2 (6.5-8.0) g/dL Albumin 4.2 (3.5-5.0) g/dL Lipase 23 (8-78) U/L COVID-19 ([facility]) Negative (Negative) COVID-19 Clin Com See Note Independent Interpretation I performed an independent interpretation of an: Plain X-Ray Radiology Impression Discussion of test interpretation with radiology: I have reviewed the radiologist's reading. Radiologist Impression: Bibasilar hazy opacities may reflect aspiration, atelectasis or, or infection. No effusion or pneumothorax. Unchanged cardiomediastinal silhouette. Critical Care Time Critical Care Time Critical Care Time: Yes Total Critical Care Time: 30 Attestation: I have personally provided critical care time. Time includes review of lab data, radiology results, discussion with consultants, and monitoring for potential decompensation. Intervention performed as documented. Discharge Plan Discharge Clinical Impression: Pneumonia, Headache Patient Disposition: Home, Self-Care Instructions: Acute Headache (ED), Community Acquired Pneumonia (ED) Additional Instructions: you have pneumonia. You were given the 1st dose of antibiotics here in the emergency room. Please make sure that you complete the entire course of antibiotics. You may return to work and do regular activities starting tomorrow. please use a mask to cover your nose and mouth. You tested negative for COVID. If you and feel well tomorrow, you have a work note available to you. Please follow-up with your primary care physician tomorrow. If you have any worsening or new symptoms, please return to the emergency room or call 911 Prescriptions: New cefuroxime axetil 500 mg tablet 500 mg PO BID Qty: 19 0RF doxycycline hyclate 100 mg capsule 100 mg PO BID Qty: 19 0RF Culturelle 15 billion cell capsule, sprinkle 1 cap PO DAILY Qty: 30 0RF ibuprofen 600 mg tablet 600 mg PO TID PRN (Reason: fever or pain) Qty: 14 0RF levofloxacin 750 mg tablet 750 mg PO DAILY Qty: 5 0RF No Action ipratropium-albuterol 0.5 mg-3 mg(2.5 mg base)/3 mL Solution For Nebulization 3 ml inhalation Q4H PRN (Reason: Shortness Of Breath) Qty: 90 0RF trazodone 100 mg Tablet 200 mg PO BEDTIME Qty: 0 0RF fluticasone propion-salmeterol [Advair Diskus] 100-50 mcg/dose blister with device 1 puff inhalation BID Incruse Ellipta 62.5 mcg/actuation Blister With Device 1 inh INHALATION QAM multivitamin [Daily-Emil] Tablet 1 tab PO DAILY 30 Days Qty: 30 0RF gabapentin 400 mg capsule 400 mg PO TID metformin 500 mg tablet extended release 24 hr 1,000 mg PO DAILY cholecalciferol (vitamin D3) 25 mcg (1,000 unit) tablet 25 mcg PO QAM pantoprazole 40 mg tablet,delayed release (DR/EC) 40 mg PO BID docusate sodium 100 mg capsule 100 mg PO QAM fluticasone propionate 50 mcg/actuation spray,suspension 1 spray intranasal DAILY carbamazepine 200 mg Tablet Extended Release 12 Hr 800 mg PO BID 30 Days Qty: 240 0RF prazosin 5 mg capsule 5 mg PO BEDTIME 30 Days Qty: 30 0RF vancomycin 125 mg capsule 125 mg PO QID 10 Days Qty: 40 0RF quetiapine 100 mg tablet 200 mg PO BEDTIME ferrous sulfate [FeroSul] 325 mg (65 mg iron) tablet 325 mg PO DAILY Januvia 100 mg tablet 100 mg PO DAILY Dulera 200-5 mcg/actuation HFA aerosol inhaler 2 puff inhalation BID hydroxyzine pamoate 100 mg capsule 100 mg PO BEDTIME hydroxyzine pamoate 50 mg capsule 100 mg PO BID PRN (Reason: Anxiety) Stand Alone Forms: Work/School Release Interventions: ED Discharge Assessment Last Done: 03/24/24 22:02 Discharge Date/Time: 03/24/24 22:02 Print Language: Egyptian
--- NOTE | 2024-03-24 19:50 | ECG_ITS ---
Test Reason : DIZZINESS Blood Pressure : / mmHG Vent. Rate : 088 BPM Atrial Rate : 088 BPM P-R Int : 186 ms QRS Dur : 086 ms QT Int : 368 ms P-R-T Axes : 022 -36 011 degrees QTc Int : 445 ms Normal sinus rhythm Left axis deviation Abnormal ECG When compared with ECG of 01-MAR-2024 21:24, No significant change was found Referred By: Lv Lee Electronically Signed By:DAVE ASHLEY
[2024-03-24 20:12] LABS: MANUAL DIFF FLAG NO
[2024-03-24 20:16] LABS: Basophils Percent Auto 0.3 % (0-2); Eosinophils Absolute Auto 0.1 X10*3/uL (0.0-0.4); Eosinophils Percent Auto 1.5 % (0-4); Hematocrit 36.6 % (37.0-47.0); Hemoglobin 11.6 g/dl (12.0-16.0); Imm Gran Abs Auto 0.04 X10*3/uL (0.00-0.03); Imm Gran Pct Auto 0.5 % (0.0-0.4); Lymphocytes Percent Auto 22.9 % (20-40); Mean Corpuscular HGB Conc 31.7 g/dl (31.0-35.0); Mean Corpuscular Hemoglobin 25.8 pg (27.0-33.0); Mean Corpuscular Volume 81.3 fL (80.0-98.0); Mean Platelet Volume 9.2 fL (9.4-12.3); Monocytes Absolute Auto 0.5 X10*3/uL (0.1-1.2); Monocytes Percent Auto 5.5 % (2-11); Neutrophils Absolute Auto 6.1 x10*3/uL (2.0-8.3); Neutrophils Percent Auto 69.3 % (45-73); Platelet Count 213 X10*3/uL (160-400); Red Cell Distribution Width 18.2 % (11.0-16.0); White Blood Count 8.7 X10*3/uL (4.8-10.8)
[2024-03-24 20:25] LABS: COVID-19 Test Negative (Negative); IDNOW Serial# 08D9AD1C
[2024-03-24 20:29] LABS: Alanine Aminotransferase 16 U/L (0-31); Albumin Level 4.2 g/dL (3.5-5.0); Alkaline Phosphatase 126 U/L (39-117); Anion Gap 13 (12-20); Aspartate Amino Transferase 18 U/L (5-31); Bilirubin Total 0.2 mg/dL (0.0-1.0); Blood Urea Nitrogen 13 mg/dL (9-16); Calcium 9.5 mg/dL (8.4-10.2); Carbon Dioxide 27 mmol/L (22-29); Chloride 101 mmol/L (96-108); Creatinine Clr Calc Pharmacy 118.7; Estimated Glomerular Filt Rate > 60; Glucose Random 131 mg/dL (60-115); Lipase 23 U/L (8-78); Sodium 137 mmol/L (135-145); Total Protein 7.2 g/dL (6.5-8.0)
[2024-03-24] MEDS: cefuroxime axetiL 500 MG TABLET PO (21:54)
[2024-03-24] MEDS: Ibuprofen 600 MG TABLET PO (21:54)
[2024-03-24] MEDS: Doxycycline Monohydrate 100 MG CAPSULE PO (21:54)
[2024-03-24 22:02] VITALS: BP 174/103; PULSE 94; RESP 18; TEMP 37.2; O2SAT 96
== END 2024-03-24 22:02 | disposition home or self-care (01) ==
PROVIDERS: Physician Assistant; Emergency Provider Emergency Medicine
DX: J18.9 Pneumonia, unspecified organism (principal); G43.909 Migraine, unspecified, not intractable, without status migrainosus; R53.1 Weakness; R05.9 Cough, unspecified; Z11.52 Encounter for screening for COVID-19; Z79.899 Other long term (current) drug therapy
CPT/HCPCS: 71046; 80053; 83690; 85025; 87635; 93005; 99283; 99284

== ENCOUNTER 2024-04-02 18:00 | Emergency (ER) | payer MEDICARE, MEDICAID, SELFPAY ==
--- NOTE | ~2024-04-02 | XR_ITS ---
EXAMINATION: XR CHEST CLINICAL INFORMATION: Back pain. COMPARISON: Chest radiograph dated 03/24/2024. TECHNIQUE: Frontal view of the chest was obtained. FINDINGS: The heart is normal in size. The lungs are clear. No pleural effusion. No pneumothorax. Stable curvature of the thoracic spine. XR/XR chest 1V IMPRESSION: No acute cardiopulmonary disease. Electronically signed by: Aakash Em DO 04/02/2024 09:40 PM EDT
[2024-04-02 18:28] VITALS: BP 159/108; PULSE 95; RESP 16; TEMP 36.6; O2SAT 95; BMI 45.0
--- NOTE | 2024-04-02 18:32 | ECG_ITS ---
Test Reason : back pain Blood Pressure : / mmHG Vent. Rate : 084 BPM Atrial Rate : 084 BPM P-R Int : 196 ms QRS Dur : 092 ms QT Int : 366 ms P-R-T Axes : 019 -33 024 degrees QTc Int : 432 ms Normal sinus rhythm Left axis deviation Anterolateral infarct , age undetermined Abnormal ECG When compared with ECG of 24-MAR-2024 19:55, No significant change was found Referred By: Generic ED Physician Electronically Signed By:DAVE ASHLEY
[2024-04-02 18:49] LABS: MANUAL DIFF FLAG NO
[2024-04-02 19:06] LABS: Alanine Aminotransferase 13 U/L (0-31); Albumin Level 3.9 g/dL (3.5-5.0); Alkaline Phosphatase 121 U/L (39-117); Anion Gap 13 (12-20); Aspartate Amino Transferase 13 U/L (5-31); Bilirubin Direct < 0.2 mg/dL (0.0-0.5); Bilirubin Total 0.1 mg/dL (0.0-1.0); Blood Urea Nitrogen 10 mg/dL (9-16); Carbon Dioxide 23 mmol/L (22-29); Chloride 107 mmol/L (96-108); Creatinine Clr Calc Pharmacy 119.3; Estimated Glomerular Filt Rate > 60; Glucose Random 120 mg/dL (60-115); Potassium 3.5 mmol/L (3.3-5.1); Sodium 139 mmol/L (135-145); Total Protein 6.7 g/dL (6.5-8.0)
[2024-04-02 19:11] LABS: Troponin-I High Sensitivity 4.4 ng/L (<3.5-17.0)
[2024-04-02 19:14] LABS: Basophils Percent Auto 0.4 % (0-2); Eosinophils Absolute Auto 0.2 X10*3/uL (0.0-0.4); Eosinophils Percent Auto 1.7 % (0-4); Hematocrit 37.2 % (37.0-47.0); Hemoglobin 11.9 g/dl (12.0-16.0); Imm Gran Abs Auto 0.13 X10*3/uL (0.00-0.03); Imm Gran Pct Auto 1.4 % (0.0-0.4); Lymphocytes Absolute Auto 2.1 X10*3/uL (1.2-4.9); Lymphocytes Percent Auto 23.1 % (20-40); Mean Corpuscular Hemoglobin 26.1 pg (27.0-33.0); Mean Corpuscular Volume 81.6 fL (80.0-98.0); Mean Platelet Volume 9.4 fL (9.4-12.3); Monocytes Absolute Auto 0.5 X10*3/uL (0.1-1.2); Monocytes Percent Auto 5.9 % (2-11); Neutrophils Absolute Auto 6.2 x10*3/uL (2.0-8.3); Neutrophils Percent Auto 67.5 % (45-73); Platelet Count 278 X10*3/uL (160-400); Red Blood Count 4.56 X10*6/uL (4.20-5.50); Red Cell Distribution Width 17.3 % (11.0-16.0); White Blood Count 9.2 X10*3/uL (4.8-10.8)
[2024-04-02 22:59] VITALS: BP 143/88; PULSE 78; RESP 20; TEMP 36.4; O2SAT 97
--- NOTE | 2024-04-03 00:37 | ED.ASTHMA ---
HPI - Asthma General Chief Complaint: Asthma Stated Complaint: neck pain that goes down her back Time Seen by Provider: 04/02/24 23:54 Source: patient, RN notes reviewed and old records reviewed Mode of arrival: ambulatory Limitations: no limitations History of Present Illness ED Provider: Jesus ACOSTA Narrative: 53-year-old female with past medical history significant for type 2 diabetes, sleep apnea, obesity, bipolar disorder presents for evaluation of back pain Patient was seen here about a week ago and diagnosed with pneumonia. She was discharged with Levaquin and doxycycline She reports her cough and shortness of breath are improving. She states that since Saturday, 6 days ago she has had worsening back pain to both sides from her upper back down to her lower back She reports her pain radiates to her neck and to her arms, does not radiate down to her legs Her pain is much worse with movement. She has tried lidocaine patches, ibuprofen, topical ointments, and warm compresses without improvement The patient denies any heavy lifting, falls or trauma to the back No numbness, tingling, bladder or bowel incontinence, no other complaints or concerns at this time Related Data Home Medications ?Medication ?Instructions ?Recorded ?Confirmed fluticasone 100 mcg-salmeterol 50 1 puff inhalation BID 08/01/21 03/10/24 mcg/dose blistr powdr for inhalation (Advair Diskus) umeclidinium 62.5 mcg/actuation 1 inh inhalation QAM 08/01/21 03/10/24 blister powder for inhalation (Incruse Ellipta) cholecalciferol (vitamin D3) 25 25 mcg PO QAM 12/19/22 03/10/24 mcg (1,000 unit) tablet docusate sodium 100 mg capsule 100 mg PO QAM 12/19/22 03/10/24 gabapentin 400 mg capsule 400 mg PO TID 12/19/22 03/10/24 metformin 500 mg tablet,extended 1,000 mg PO DAILY 12/19/22 03/10/24 release 24 hr pantoprazole 40 mg tablet,delayed 40 mg PO BID 12/19/22 03/10/24 release fluticasone propionate 50 1 spray intranasal DAILY 12/20/22 03/10/24 mcg/actuation nasal spray,suspension ferrous sulfate 325 mg (65 mg 325 mg PO DAILY 03/10/24 03/10/24 iron) tablet (FeroSul) hydroxyzine pamoate 100 mg capsule 100 mg PO BEDTIME 03/10/24 03/10/24 hydroxyzine pamoate 50 mg capsule 100 mg PO BID PRN Anxiety 03/10/24 03/10/24 mometasone-formoterol HFA 200 2 puff inhalation BID 03/10/24 03/10/24 mcg-5 mcg/actuation aerosol inhaler (Dulera) quetiapine 100 mg tablet 200 mg PO BEDTIME 03/10/24 03/10/24 sitagliptin phosphate 100 mg 100 mg PO DAILY 03/10/24 03/10/24 tablet (Januvia) Previous Rx's ?Medication ?Instructions ?Recorded multivitamin (Daily-Emil tablet) 1 tab PO DAILY 30 days #30 tabs 08/15/21 ipratropium 0.5 mg-albuterol 3 mg 3 ml inhalation Q4H PRN Shortness 01/24/22 (2.5 mg base)/3 mL nebulization Of Breath #90 mL soln trazodone 100 mg tablet 200 mg (2 x 100 mg) PO BEDTIME #0 01/24/22 tabs carbamazepine 200 mg 800 mg (4 x 200 mg) PO BID 30 days 12/26/22 tablet,extended release,12 hr #240 tabs prazosin 5 mg capsule 5 mg PO BEDTIME 30 days #30 caps 01/01/23 vancomycin 125 mg capsule 125 mg PO QID 10 days #40 caps 03/02/24 Lactobacillus rhamnosus GG 15 1 cap PO DAILY #30 caps 03/24/24 billion cell sprinkle capsule (Culturelle) cefuroxime axetil 500 mg tablet 500 mg PO BID #19 tabs 03/24/24 doxycycline hyclate 100 mg capsule 100 mg PO BID #19 caps 03/24/24 ibuprofen 600 mg tablet 600 mg PO TID PRN fever or pain 03/24/24 #14 tabs levofloxacin 750 mg tablet 750 mg PO DAILY #5 tabs 03/25/24 cyclobenzaprine 7.5 mg tablet 7.5 mg PO TID PRN muscle spasm #20 04/03/24 tabs Allergies Allergy/AdvReac Type Severity Reaction Status Date / Time sulfamethoxazole Allergy Intermediate Rash Verified 04/02/24 18:31 [From Bactrim] trimethoprim [From Bactrim] Allergy Intermediate Rash Verified 04/02/24 18:31 adhesive tape Allergy Rash Verified 04/02/24 18:31 [place] And Derivatives Allergy Gastrointestinal Verified 04/02/24 18:31 Upset Benzodiazepines AdvReac Intermediate Hives Verified 04/02/24 18:31 diazepam [From Valium] AdvReac Intermediate Irritable Verified 04/02/24 18:31 Review of Systems Constitutional: Constitutional: Denies body ache(s), Denies chills and Denies fever(s) ENT: Reports neck pain Cardiovascular: Cardiovascular: Denies chest pain Respiratory: Respiratory: Reports cough Gastrointestinal: Gastrointestinal: Denies abdominal pain, Denies nausea and Denies vomiting Musculoskeletal: Musculoskeletal: Reports back pain, Reports neck pain, Denies numbness, Reports radiating pain into limb, Reports stiffness and Denies tingling Integumentary/Breasts: Skin/Breast: Denies rash Neurologic: Denies numbness and Denies tingling PMFSH Past Medical History Medical History GERD (gastroesophageal reflux disease) Sleep apnea Asthma Hearing loss Diabetes mellitus, type 2 Social History Social History Household Members: Other Household Members Other:: 2 Housing: Other Housing Other:: [employer] assisted Do you presently have visiting nurse or other home services: Yes Alcohol intake: never Patient Tobacco Use Status: Never used Tobacco e-Cigarette/Vaping Use: Never Used Advance Directives: No Advance Directives Information Provided: No Do you have a plan to hurt others: No Plan service: No Sexual orientation: Straight/Heterosexual Physical Exam Vital Signs: Vital Signs: Last Vital Signs Temp 97.5 F 04/02/24 22:59 Pulse 78 04/02/24 22:59 Resp 20 04/02/24 22:59 BP 143/88 H 04/02/24 22:59 Pulse Ox 97 04/02/24 22:59 O2 Del Method Room Air 04/02/24 22:59 BMI result Body Mass Index 45.0 Const: General: healthy appearing, comfortable, no acute distress, alert and awake Nutritional Appearance: well nourished Orientation/consciousness: patient oriented x3 HEENT: Head: Yes normocephalic and Yes atraumatic Eyes: Eyelids: Yes eyelids normal Conjunctivae: conjunctivae normal Sclerae: sclerae normal Corneas: corneas normal Pupils: Equal, round and reactive pupils present EOM: EOMs intact bilaterally Neck: Neck: Yes full ROM Resp: Effort & Inspection: normal respiratory effort, able to speak in complete sentences, no audible wheezes and not labored Auscultation: clear to auscultation bilaterally Back/Spine/Pelvis: Other: Patient has bilateral paraspinous muscle tenderness from her cervical paraspinous region down through her thoracic and lumbar paraspinous region. Straight leg raise negative Skin: General skin exam: elasticity normal Neuro: General: patient oriented x3 Cranial nerves: Yes Equal, round and reactive pupils present and Yes Bilaterally intact EOM present Cognition (Neuro): normal cognition Medications Administered Discontinued Medications Generic Name Dose Route Start Last Admin Trade Name Freq PRN Reason Stop Dose Admin Cyclobenzaprine HCl 10 mg 04/03/24 00:36 04/03/24 00:43 Cyclobenzaprine Hcl 10 Mg Tablet PO 04/03/24 00:37 10 mg ONCE ONE Administration Ketorolac Tromethamine 30 mg 04/03/24 00:36 04/03/24 00:43 Ketorolac Tromethamine 30 Mg/Ml Vial IM 04/03/24 00:37 30 mg ONCE ONE Administration Medical Decision Making Medical Decision Making [facility] Narrative: 53-year-old female presents for evaluation of back pain. Her back pain has been present for the last 6 days. There was no trauma, her cough and shortness of breath are improving. Her workup showed no concerning findings, labs without significant abnormalities, chest x-ray is clear, no worsening pneumonia or pneumothorax. Patient's pain is very reproducible, most consistent with musculoskeletal pain, will treat as such with cyclobenzaprine Differential Diagnosis Differential Diagnoses: The differential diagnosis associated with the presentation includes Muscle strain Muscle spasms Chronic back pain Arthritis Pneumonia Pneumothorax Lab Data [facility] Lab Attestation statement: I reviewed the patient's lab results. No leukocytosis or significant anemia. Normal platelet count. Chemistries without significant abnormality. The patient is a diabetic, her glucose is 120, no evidence of DKA. Slight elevation of alk phos consistent with her baseline. 04/02/24 18:44 04/02/24 18:44 Labs: Lab Results 04/02/24 Range/Units 18:44 WBC 9.2 (4.8-10.8) X10*3/uL RBC 4.56 (4.20-5.50) X10*6/uL Hgb 11.9 L (12.0-16.0) g/dl Hct 37.2 (37.0-47.0) % MCV 81.6 (80.0-98.0) fL MCH 26.1 L (27.0-33.0) pg MCHC 32.0 (31.0-35.0) g/dl RDW 17.3 H (11.0-16.0) % Plt Count 278 D (160-400) X10*3/uL MPV 9.4 (9.4-12.3) fL Immature Gran % (Auto) 1.4 H (0.0-0.4) % Neut % (Auto) 67.5 (45-73) % Lymph % (Auto) 23.1 (20-40) % [place] % (Auto) 5.9 (2-11) % Eos % (Auto) 1.7 (0-4) % Baso % (Auto) 0.4 (0-2) % Lymph # (Auto) 2.1 (1.2-4.9) X10*3/uL [place] # (Auto) 0.5 (0.1-1.2) X10*3/uL Eos # (Auto) 0.2 (0.0-0.4) X10*3/uL Baso # (Auto) 0.0 (0.0-0.2) X10*3/uL Abs Immat Gran (auto) 0.13 H (0.00-0.03) X10*3/uL Absolute Neuts (auto) 6.2 (2.0-8.3) x10*3/uL Absolute Nucleated RBC 0.000 (0.0-0.012) X10*3/uL Nucleated RBC % (auto) 0.0 (0.0-0.2) /100WBC Sodium 139 (135-145) mmol/L Potassium 3.5 (3.3-5.1) mmol/L Chloride 107 (96-108) mmol/L Carbon Dioxide 23 (22-29) mmol/L Anion Gap 13 (12-20) BUN 10 (9-16) mg/dL Creatinine 0.65 (0.5-1.4) mg/dL Estim Creat Clear Calc 119.3 Estimated GFR > 60 Random Glucose 120 H (60-115) mg/dL Calcium 9.0 (8.4-10.2) mg/dL Total Bilirubin 0.1 (0.0-1.0) mg/dL Direct Bilirubin < 0.2 (0.0-0.5) mg/dL AST 13 (5-31) U/L ALT 13 (0-31) U/L Alkaline Phosphatase 121 H (39-117) U/L Troponin I High Sens 4.4 (<3.5-17.0) ng/L Total Protein 6.7 (6.5-8.0) g/dL Albumin 3.9 (3.5-5.0) g/dL Independent Interpretation I performed an independent interpretation of an: EKG (Normal sinus rhythm with a rate of [address] segment elevation or depressions. Nondiagnostic EKG) and Plain X-Ray (Agree with Radiology interpretation) Radiology Impression Discussion of test interpretation with radiology: I have reviewed the radiologist's reading. Radiologist Impression: XR/XR chest 1V IMPRESSION: No acute cardiopulmonary disease. Electronically signed by: Aakash Em DO 04/02/2024 09:40 PM EDT RP Discharge Plan Discharge Clinical Impression: Back pain Patient Disposition: Home, Self-Care Instructions: Back Pain (ED) Additional Instructions: Your workup in the ER today was reassuring. Your chest x-ray shows that the pneumonia is resolving. Finish the antibiotics as prescribed You may continue to use ibuprofen/Tylenol for pain You may use cyclobenzaprine 7.5mg every 8 hours as needed for muscle spasms This may make you drowsy, do not drink alcohol or drive after taking it Follow-up with your primary doctor Prescriptions: New cyclobenzaprine 7.5 mg tablet 7.5 mg PO TID PRN (Reason: muscle spasm) Qty: 20 0RF No Action ipratropium-albuterol 0.5 mg-3 mg(2.5 mg base)/3 mL Solution For Nebulization 3 ml inhalation Q4H PRN (Reason: Shortness Of Breath) Qty: 90 0RF trazodone 100 mg Tablet 200 mg PO BEDTIME Qty: 0 0RF fluticasone propion-salmeterol [Advair Diskus] 100-50 mcg/dose blister with device 1 puff inhalation BID Incruse Ellipta 62.5 mcg/actuation Blister With Device 1 inh INHALATION QAM multivitamin [Daily-Emil] Tablet 1 tab PO DAILY 30 Days Qty: 30 0RF cefuroxime axetil 500 mg tablet 500 mg PO BID Qty: 19 0RF doxycycline hyclate 100 mg capsule 100 mg PO BID Qty: 19 0RF Culturelle 15 billion cell capsule, sprinkle 1 cap PO DAILY Qty: 30 0RF ibuprofen 600 mg tablet 600 mg PO TID PRN (Reason: fever or pain) Qty: 14 0RF levofloxacin 750 mg tablet 750 mg PO DAILY Qty: 5 0RF gabapentin 400 mg capsule 400 mg PO TID metformin 500 mg tablet extended release 24 hr 1,000 mg PO DAILY cholecalciferol (vitamin D3) 25 mcg (1,000 unit) tablet 25 mcg PO QAM pantoprazole 40 mg tablet,delayed release (DR/EC) 40 mg PO BID docusate sodium 100 mg capsule 100 mg PO QAM fluticasone propionate 50 mcg/actuation spray,suspension 1 spray intranasal DAILY carbamazepine 200 mg Tablet Extended Release 12 Hr 800 mg PO BID 30 Days Qty: 240 0RF prazosin 5 mg capsule 5 mg PO BEDTIME 30 Days Qty: 30 0RF vancomycin 125 mg capsule 125 mg PO QID 10 Days Qty: 40 0RF quetiapine 100 mg tablet 200 mg PO BEDTIME ferrous sulfate [FeroSul] 325 mg (65 mg iron) tablet 325 mg PO DAILY Januvia 100 mg tablet 100 mg PO DAILY Dulera 200-5 mcg/actuation HFA aerosol inhaler 2 puff inhalation BID hydroxyzine pamoate 100 mg capsule 100 mg PO BEDTIME hydroxyzine pamoate 50 mg capsule 100 mg PO BID PRN (Reason: Anxiety) Print Language: Nepali
[2024-04-03] MEDS: Cyclobenzaprine HCl 10 MG TABLET PO (00:43)
[2024-04-03] MEDS: Ketorolac Tromethamine 30 MG/ML VIAL IM (00:43)
== END 2024-04-03 01:04 | disposition home or self-care (01) ==
PROVIDERS: Emergency Provider Internal Medicine
DX: M54.50 Low back pain, unspecified (principal); R94.31 Abnormal electrocardiogram [ECG] [EKG]; M54.2 Cervicalgia; R06.02 Shortness of breath; R05.9 Cough, unspecified; Z79.899 Other long term (current) drug therapy
CPT/HCPCS: 36415; 71045; 80048; 80076; 84484; 85025; 93005; 96372; 99284; J1885

== ENCOUNTER 2024-04-27 17:07 | Emergency (ER) | payer MEDICARE, MEDICAID, SELFPAY ==
--- NOTE | ~2024-04-27 | XR_ITS ---
Examination: Left foot and left ankle examination CLINICAL INDICATION: Status post injury. Pain. TECHNIQUE: 3 views left foot and 2 views left ankle. COMPARISON: Left ankle 08/07/2021. FINDINGS: Left foot: There is mild loss of first MTP joint space with periarticular swelling. No visible acute fracture, dislocation or subluxation seen. The soft tissues are normal. Left ankle: The ankle mortise and subtalar joints are normal. There is a moderate size calcaneal heel spur. There is moderate lateral malleolar soft tissue swelling tissue swelling. XR/XR foot LT min 3V IMPRESSION: No visible acute fracture or dislocation left ankle and left foot. Moderate lateral malleolar soft tissue swelling. Electronically signed by: Theodore Hollingsworth MD 04/27/2024 07:01 PM EDT
--- NOTE | ~2024-04-27 | XR_ITS ---
Examination: Left foot and left ankle examination CLINICAL INDICATION: Status post injury. Pain. TECHNIQUE: 3 views left foot and 2 views left ankle. COMPARISON: Left ankle 08/07/2021. FINDINGS: Left foot: There is mild loss of first MTP joint space with periarticular swelling. No visible acute fracture, dislocation or subluxation seen. The soft tissues are normal. Left ankle: The ankle mortise and subtalar joints are normal. There is a moderate size calcaneal heel spur. There is moderate lateral malleolar soft tissue swelling tissue swelling. XR/XR ankle LT min 3V IMPRESSION: No visible acute fracture or dislocation left ankle and left foot. Moderate lateral malleolar soft tissue swelling. Electronically signed by: Theodore Hollingsworth MD 04/27/2024 07:01 PM EDT
[2024-04-27 17:27] VITALS: BP 156/105; PULSE 93; RESP 19; TEMP 36.6; O2SAT 98; BMI 44.3
--- NOTE | 2024-04-27 17:28 | ED_ITS ---
HPI - Extremity Injury (Lower) General Chief Complaint: Extremity Injury, Lower Stated Complaint: left foot inj Time Seen by Provider: 04/28/24 03:16 Source: patient Mode of arrival: ambulatory Limitations: no limitations History of Present Illness ED Provider: DR. Brantley HPI Narrative: 53 yo female with history of DM, bipolar disorder, IRINA, who presents to the ER for evaluation of left ankle and foot pain and swelling after an inversion injury 2 weeks ago. Has needed to use crutches due to pain and swelling. Can't see her Orthopedic until July. Pain currently 03/31, pain and swelling to the left lateral ankle and foot noted. Related Data Home Medications ?Medication ?Instructions ?Recorded ?Confirmed fluticasone 100 mcg-salmeterol 50 1 puff inhalation BID 08/01/21 03/10/24 mcg/dose blistr powdr for inhalation (Advair Diskus) umeclidinium 62.5 mcg/actuation 1 inh inhalation QAM 08/01/21 03/10/24 blister powder for inhalation (Incruse Ellipta) cholecalciferol (vitamin D3) 25 25 mcg PO QAM 12/19/22 03/10/24 mcg (1,000 unit) tablet docusate sodium 100 mg capsule 100 mg PO QAM 12/19/22 03/10/24 gabapentin 400 mg capsule 400 mg PO TID 12/19/22 03/10/24 metformin 500 mg tablet,extended 1,000 mg PO DAILY 12/19/22 03/10/24 release 24 hr pantoprazole 40 mg tablet,delayed 40 mg PO BID 12/19/22 03/10/24 release fluticasone propionate 50 1 spray intranasal DAILY 12/20/22 03/10/24 mcg/actuation nasal spray,suspension ferrous sulfate 325 mg (65 mg 325 mg PO DAILY 03/10/24 03/10/24 iron) tablet (FeroSul) hydroxyzine pamoate 100 mg capsule 100 mg PO BEDTIME 03/10/24 03/10/24 hydroxyzine pamoate 50 mg capsule 100 mg PO BID PRN Anxiety 03/10/24 03/10/24 mometasone-formoterol HFA 200 2 puff inhalation BID 03/10/24 03/10/24 mcg-5 mcg/actuation aerosol inhaler (Dulera) quetiapine 100 mg tablet 200 mg PO BEDTIME 03/10/24 03/10/24 sitagliptin phosphate 100 mg 100 mg PO DAILY 03/10/24 03/10/24 tablet (Januvia) Previous Rx's ?Medication ?Instructions ?Recorded multivitamin (Daily-Emil tablet) 1 tab PO DAILY 30 days #30 tabs 08/15/21 ipratropium 0.5 mg-albuterol 3 mg 3 ml inhalation Q4H PRN Shortness 01/24/22 (2.5 mg base)/3 mL nebulization Of Breath #90 mL soln trazodone 100 mg tablet 200 mg (2 x 100 mg) PO BEDTIME #0 01/24/22 tabs carbamazepine 200 mg 800 mg (4 x 200 mg) PO BID 30 days 12/26/22 tablet,extended release,12 hr #240 tabs prazosin 5 mg capsule 5 mg PO BEDTIME 30 days #30 caps 01/01/23 vancomycin 125 mg capsule 125 mg PO QID 10 days #40 caps 03/02/24 Lactobacillus rhamnosus GG 15 1 cap PO DAILY #30 caps 03/24/24 billion cell sprinkle capsule (Culturelle) cefuroxime axetil 500 mg tablet 500 mg PO BID #19 tabs 03/24/24 doxycycline hyclate 100 mg capsule 100 mg PO BID #19 caps 03/24/24 ibuprofen 600 mg tablet 600 mg PO TID PRN fever or pain 03/24/24 #14 tabs levofloxacin 750 mg tablet 750 mg PO DAILY #5 tabs 03/25/24 cyclobenzaprine 7.5 mg tablet 7.5 mg PO TID PRN muscle spasm #20 04/03/24 tabs Allergies Allergy/AdvReac Type Severity Reaction Status Date / Time sulfamethoxazole Allergy Intermediate Rash Verified 04/27/24 17:29 [From Bactrim] trimethoprim [From Bactrim] Allergy Intermediate Rash Verified 04/27/24 17:29 adhesive tape Allergy Rash Verified 04/27/24 17:29 [place] And Derivatives Allergy Gastrointestinal Verified 04/27/24 17:29 Upset Benzodiazepines AdvReac Intermediate Hives Verified 04/27/24 17:29 diazepam [From Valium] AdvReac Intermediate Irritable Verified 04/27/24 17:29 Review of Systems Review of Systems: All other systems are reviewed and are negative Constitutional: Reports as per HPI and Reports no additional constitutional complaints Eyes: Reports as per HPI and Reports no additional eye complaints Reports system reviewed and no additional complaints, except as documented Cardiovascular: Reports as per HPI and Reports no additional cardiovascular complaints Respiratory: Reports as per HPI and Reports no additional respiratory complaints Gastrointestinal: Reports as per HPI and Reports no additional gastrointestinal complaints Genitourinary: Reports no additional female genitourinary complaints Musculoskeletal: Reports no additional musculoskeletal complaints Skin/Breast: Reports system reviewed and no additional complaints, except as docu Psychiatric: Reports no additional psychiatric complaints Endocrine: Reports no additional endocrine complaints Hematologic/Lymphatic: Reports no additional hematologic/lymphatic complaints Allergic/Immunologic: Reports no additional allergic/immunologic complaints Reports system reviewed and no additional complaints, except as documented and Reports Abnormal speech present [facility] Past Medical History Medical History GERD (gastroesophageal reflux disease) Sleep apnea Asthma Hearing loss Diabetes mellitus, type 2 Social History Social History Household Members: Other Household Members Other:: 2 Housing: Other Housing Other:: [employer] senior care Do you presently have visiting nurse or other home services: Yes Alcohol intake: never Patient Tobacco Use Status: Never used Tobacco e-Cigarette/Vaping Use: Never Used Advance Directives: No Advance Directives Information Provided: No Do you have a plan to hurt others: No Plan service: No Sexual orientation: Straight/Heterosexual Physical Exam Vital Signs: Vital Signs: Last Vital Signs Temp 97.3 F 04/28/24 02:43 Pulse 80 04/28/24 02:43 Resp 18 04/28/24 02:43 BP 151/96 H 04/28/24 02:43 Pulse Ox 97 04/28/24 02:43 O2 Del Method Room Air 04/28/24 02:43 BMI result Body Mass Index 44.3 Vital signs have been reviewed and appear to be correct. Blood pressure elevated. Heart rate normal. Respiratory rate normal. Temperature normal. Oxygen saturation normal. Appearance: Alert. Oriented X3. No acute distress. Head: Normal external exam. Normocephalic. Atraumatic. No Gonzalez signs noted. No raccoon eyes noted Eyes: PERRLA. EOMI. Conjunctiva and sclera normal. Eyelids normal. ENT: TM's Normal. Pharynx normal. Uvula midline. Moist mucous membranes. No trismus noted. No drooling noted. No muffled voice noted. Neck: Normal inspection. Neck supple. FROM. No adenopathy. Thyroid Normal. No meningeal signs. No neck mass noted. CVS: Normal heart rate and rhythm. Heart sound normal. No murmurs noted. Pulses normal throughout. Respiratory: No respiratory distress. Painless inspiration. Breath sounds normal. No wheezes/rales/rhonchi noted. Chest nontender. No accessory muscle usage noted or decreased air movement noted. Abdomen: Soft and nontender. Bowel sounds normal in all 4 quadrants. No distention noted. No organomegaly noted. No visible injury noted. Back: No CVA tenderness. Full range of motion noted. Skin: Skin warm and dry. Normal skin color. Normal skin turgor. No rashes/lesions/lacerations noted. Extremities: Left ankle/ foot: Tenderness over medial and lateral malleolus with swelling, no deformity. Neurovascular intact. Neuro: Oriented X 3. Cranial nerve exam: II-XII are grossly intact No motor deficit. No sensory deficit. Reflexes normal. Course Course Course Narrative: This is a Rapid Medical Examination (RME) performed by Ad Dominique PA-C in triage. Full HPI, ROS, assessment and treatment plan per primary provider in the Main ED. Plan: XR ankle and foot Reevaluation(s) Reevaluation #1: Left foot/ ankle injury, neurovascular intact, x-ray showed no acute fracture will apply Aristeo bandage will give 1 dose of oxycodone and discharge the patient. Time: 03:35 Medical Decision Making Differential Diagnosis Differential Diagnoses: The differential diagnosis associated with the presentation includes ( Foot fracture, foot dislocation, ankle fracture, ankle dislocation.) Admission/Observation Consideration of admission/observation: Escalation of care including admission/observation considered Independent Interpretation I performed an independent interpretation of an: Plain X-Ray ( Left foot/ ankle:No visible acute fracture or dislocation left ankle and left foot. Moderate lateral malleolar soft tissue swelling. ) Radiology Impression Discussion of test interpretation with radiology: I have reviewed the radiologist's reading. Discharge Plan Discharge Clinical Impression: Ankle sprain and strain Patient Disposition: Home, Self-Care Instructions: Ankle Sprain (ED) Prescriptions: No Action ipratropium-albuterol 0.5 mg-3 mg(2.5 mg base)/3 mL Solution For Nebulization 3 ml inhalation Q4H PRN (Reason: Shortness Of Breath) Qty: 90 0RF trazodone 100 mg Tablet 200 mg PO BEDTIME Qty: 0 0RF fluticasone propion-salmeterol [Advair Diskus] 100-50 mcg/dose blister with device 1 puff inhalation BID Incruse Ellipta 62.5 mcg/actuation Blister With Device 1 inh INHALATION QAM multivitamin [Daily-Emil] Tablet 1 tab PO DAILY 30 Days Qty: 30 0RF cefuroxime axetil 500 mg tablet 500 mg PO BID Qty: 19 0RF doxycycline hyclate 100 mg capsule 100 mg PO BID Qty: 19 0RF Culturelle 15 billion cell capsule, sprinkle 1 cap PO DAILY Qty: 30 0RF ibuprofen 600 mg tablet 600 mg PO TID PRN (Reason: fever or pain) Qty: 14 0RF levofloxacin 750 mg tablet 750 mg PO DAILY Qty: 5 0RF cyclobenzaprine 7.5 mg tablet 7.5 mg PO TID PRN (Reason: muscle spasm) Qty: 20 0RF gabapentin 400 mg capsule 400 mg PO TID metformin 500 mg tablet extended release 24 hr 1,000 mg PO DAILY cholecalciferol (vitamin D3) 25 mcg (1,000 unit) tablet 25 mcg PO QAM pantoprazole 40 mg tablet,delayed release (DR/EC) 40 mg PO BID docusate sodium 100 mg capsule 100 mg PO QAM fluticasone propionate 50 mcg/actuation spray,suspension 1 spray intranasal DAILY carbamazepine 200 mg Tablet Extended Release 12 Hr 800 mg PO BID 30 Days Qty: 240 0RF prazosin 5 mg capsule 5 mg PO BEDTIME 30 Days Qty: 30 0RF vancomycin 125 mg capsule 125 mg PO QID 10 Days Qty: 40 0RF quetiapine 100 mg tablet 200 mg PO BEDTIME ferrous sulfate [FeroSul] 325 mg (65 mg iron) tablet 325 mg PO DAILY Januvia 100 mg tablet 100 mg PO DAILY Dulera 200-5 mcg/actuation HFA aerosol inhaler 2 puff inhalation BID hydroxyzine pamoate 100 mg capsule 100 mg PO BEDTIME hydroxyzine pamoate 50 mg capsule 100 mg PO BID PRN (Reason: Anxiety) Print Language: Sinhala
[2024-04-28 02:43] VITALS: BP 151/96; PULSE 80; RESP 18; TEMP 36.3; O2SAT 97
[2024-04-28 03:35] VITALS: BP 151/96; PULSE 80; RESP 18; TEMP 36.3; O2SAT 97
[2024-04-28] MEDS: oxyCODONE HCl Immed Release 5 MG TABLET PO (03:38)
[2024-04-28 04:59] VITALS: BP 151/96; PULSE 80; RESP 18; TEMP 36.3; O2SAT 97
== END 2024-04-28 04:50 | disposition home or self-care (01) ==
PROVIDERS: Emergency Provider Emergency Medicine
DX: S93.402A Sprain of unspecified ligament of left ankle, initial encounter (principal); M79.672 Pain in left foot; G47.33 Obstructive sleep apnea (adult) (pediatric); X58.XXXA Exposure to other specified factors, initial encounter; Y93.29 Activity, other involving ice and snow; Y92.89 Other specified places as the place of occurrence of the external cause; Y99.8 Other external cause status; Z79.899 Other long term (current) drug therapy
CPT/HCPCS: 73610; 73630; 99283; 99284

== ENCOUNTER 2024-05-05 12:47 | Outpatient (REF) | payer MEDICARE, MEDICAID, SELFPAY ==
--- NOTE | 2024-05-05 15:08 | MHC.AU.HA1 ---
Hearing Aid Evaluation Date of Visit: 05/05/24 Historical Information: Description of Hearing: Within normal sloping to moderately-severe sensorineural hearing loss, bilaterally Summary: Accompanied by custodial staff, Shayy. Had hearing tested at [facility] in November 2023 and provided medical clearance. Lives in custodial. Hx of multiple concussions and TBI. Motivated to get and use hearing aids. Relies on lip reading, needs hearing aids to be able to understand conversations again. Some concerns with dexterity but has staff to help. Discussed styles and technology. Opted to trial rechargeable RITE compatible with iPhone. Hearing Aid Prescription: Based on the individual?s shared listening needs, communication environments, dexterity, desire for connectivity, and personal preferences, the following prescription for amplification has been made: Right ear: Johnson Model, Color: Oticon Intent 2 miniRITE-R Color: Melvin Blue Battery Size: Rechargeable Technical Training Instructor/Slim Tube: 2/85 Type of Earmold/Dome/CShell/SlimTip: 6mm double epperson dome Left ear: Left ear prescription to be same as Right Hearing Aid above: Make Model, Color: Oticon Intent 2 miniRITE-R Color: Melvin Blue Battery Size: Rechargeable Technical Training Instructor/Slim Tube: 2/85 Type of Earmold/Dome/CShell/SlimTip: 6mm double epperson dome Accessories/Assistive Technology: Environmental Research Scientist Plan of Care: Patient wishes to purchase hearing aids as prescribed Action Taken/Action Needed: Hearing Instrument Fitting to be scheduled when materials arrive Primary Diagnosis: H90.3 Bilateral Sensorineural Hearing Loss Signature: Provider: Betito Krishnamurthy, [facility]
== END 2024-05-05 12:48 | disposition home or self-care (01) ==
LOC: HO.HAP 12:47
PROVIDERS: Visit Provider Otolaryngology
DX: Z46.1 Encounter for fitting and adjustment of hearing aid (principal); H90.3 Sensorineural hearing loss, bilateral
CPT/HCPCS: 92591

== ENCOUNTER 2024-05-19 12:19 | Outpatient (REF) | payer MEDICARE, MEDICAID, SELFPAY ==
--- NOTE | 2024-05-19 13:49 | MHC.AU.HA2 ---
Hearing Instrument Fitting- Adult- Binaural Date of Visit: 05/19/24 Hearing Instruments Dispensed: Right Ear: Make, Model, Color, Serial Number: Oticon Intent 2 miniRITE-R SN: [id number] Color: Melvin Blue Fur Pointer Repair Warranty: 06/05/2027 Fur Pointer Loss and Damage Warranty: 06/05/2027 [facility] Service Plan: 05/19/2025 Battery Size: Rechargeable Metal Room Dental Technician/Slim Tube: 2/85 Earmold/Dome/CShell/SlimTip: 6mm double epperson dome (no retention tail) Type of Wax Guard: miniFit Left Ear: Make, Model, Color, Serial Number: Oticon Intent 2 miniRITE-R SN: [id number] Color: Melvin Blue Fur Pointer Repair Warranty: 06/05/2027 Fur Pointer Loss and Damage Warranty: 06/05/2027 [facility] Service Plan: 05/19/2025 Battery Size: Rechargeable Metal Room Dental Technician/Slim Tube: 2/85 Earmold/Dome/CShell/SlimTip: 6mm double epperson dome (no retention tail) Type of Wax Guard: miniFit Accessories/Assistive Technology: Oticon Inspector Final Assembly Conveyor Line MiniRITE SN: [id number] Summary of Fitting: Accompanied by care home staffShayy. Ran feedback analyzer and real ear measures. Comfortable at real ear settings. Discussed care, use, and rechargeability including manually turning on/off, cleaning, changing domes and wax guards. Will have help from care home staff. Practiced insertion and removal. Paired to cell phone. Requested phone call to care home to schedule follow up later today or tomorrow ([phone], Shayy Sepulveda) Recommendations: A hearing instrument follow-up will be scheduled. Diagnosis Code(s): Primary Diagnosis: H90.3 Bilateral Sensorineural Hearing Loss Signature: Provider: Betito Krishnamurthy, [facility]
== END 2024-05-19 12:20 | disposition home or self-care (01) ==
LOC: HO.HAP 12:19
PROVIDERS: Visit Provider Otolaryngology
DX: Z46.1 Encounter for fitting and adjustment of hearing aid (principal); H90.3 Sensorineural hearing loss, bilateral
CPT/HCPCS: V5011; V5020; V5160; V5261

== ENCOUNTER 2024-06-14 17:43 | Emergency (ER) | payer MEDICARE, MEDICAID, SELFPAY ==
--- NOTE | ~2024-06-14 | CT_ITS ---
EXAMINATION: CT ABDOMEN AND PELVIS WITHOUT CONTRAST CLINICAL INFORMATION: Right flank pain. COMPARISON: CT abdomen/pelvis dated 03/02/2024. TECHNIQUE: Multidetector volumetric imaging was performed from the superior aspect of the liver through the pubic symphysis. Sagittal and coronal reformatted images were obtained on the technologist's workstation. This CT examination was performed using dose optimization techniques as appropriate, variously including the following: *Automated exposure control *Adjustment of mA and/or kV according to patient size (this includes techniques or standardized protocols for targeted exams where dose is matched to indication/reason for exam; i.e. extremities or head) *Use of iterative reconstruction technique DLP: 948 mGy-cm FINDINGS: LUNG BASES: The visualized lung bases are unremarkable. LIVER, GALLBLADDER, AND BILIARY TREE: The liver is again noted to be enlarged with parenchymal hypoattenuation, consistent with steatosis. Normal hepatic contour. No focal hepatic lesion or biliary ductal dilatation is present. The gallbladder is unremarkable with no evidence of radiopaque gallstones, gallbladder wall thickening, or obvious pericholecystic inflammatory changes. PANCREAS: Unremarkable. SPLEEN: Splenomegaly is unchanged. ADRENAL GLANDS: Unremarkable. KIDNEYS AND URETERS: The kidneys are normal in size, shape, and attenuation. No hydronephrosis, hydroureter, or calculi seen. Simple right renal cysts, unchanged. Findings are not clinically significant and no dedicated follow-up imaging is recommended. No perinephric stranding. BLADDER: Unremarkable. GASTROINTESTINAL TRACT: No small or large bowel obstruction. No bowel wall thickening or inflammatory change. Status post appendectomy. PERITONEAL CAVITY: No intra-abdominal free air or free fluid. No intra-abdominal mass or organized fluid collection to suggest abscess formation. ABDOMINAL WALL: No significant hernia is appreciated. LYMPH NODES: No lymphadenopathy. VASCULAR: Unremarkable. PELVIC VISCERA: Unchanged probable uterine fibroids. OSSEOUS STRUCTURES: Unremarkable. CT/CT abdomen pelvis wo IV con IMPRESSION: 1. No hydronephrosis or nephrolithiasis. Unremarkable urinary bladder. 2. No small or large bowel obstruction. No bowel wall thickening or inflammatory change. Status post appendectomy. 3. No intra-abdominal mass, lymphadenopathy, or ascites. 4. Additional chronic findings are unchanged. Fleischner guidelines were followed. Electronically signed by: Lazarus Wiseman MD 06/14/2024 08:03 PM EST RP Workstation: [id number]
[2024-06-14 17:49] VITALS: BP 151/85; PULSE 94; RESP 20; TEMP 36.6; O2SAT 95; BMI 43.3
[2024-06-14 18:05] LABS: MANUAL DIFF FLAG NO
[2024-06-14 18:06] LABS: Basophils Percent Auto 0.2 % (0-2); Eosinophils Percent Auto 0.2 % (0-4); Hematocrit 38.6 % (37.0-47.0); Hemoglobin 12.8 g/dl (12.0-16.0); Imm Gran Abs Auto 0.34 X10*3/uL (0.00-0.03); Imm Gran Pct Auto 2.6 % (0.0-0.4); Lymphocytes Absolute Auto 1.9 X10*3/uL (1.2-4.9); Mean Corpuscular HGB Conc 33.2 g/dl (31.0-35.0); Mean Corpuscular Hemoglobin 27.2 pg (27.0-33.0); Mean Platelet Volume 9.2 fL (9.4-12.3); Monocytes Absolute Auto 0.7 X10*3/uL (0.1-1.2); Monocytes Percent Auto 5.3 % (2-11); Neutrophils Absolute Auto 10.3 x10*3/uL (2.0-8.3); Neutrophils Percent Auto 77.7 % (45-73); Platelet Count 281 X10*3/uL (160-400); Red Blood Count 4.71 X10*6/uL (4.20-5.50); Red Cell Distribution Width 15.5 % (11.0-16.0); White Blood Count 13.3 X10*3/uL (4.8-10.8)
[2024-06-14 18:21] LABS: Alanine Aminotransferase 20 U/L (0-31); Albumin Level 4.3 g/dL (3.5-5.0); Alkaline Phosphatase 109 U/L (39-117); Anion Gap 15 (12-20); Aspartate Amino Transferase 21 U/L (5-31); Bilirubin Total 0.2 mg/dL (0.0-1.0); Blood Urea Nitrogen 19 mg/dL (9-16); Calcium 9.6 mg/dL (8.4-10.2); Carbon Dioxide 24 mmol/L (22-29); Chloride 105 mmol/L (96-108); Creatinine Clr Calc Pharmacy 97.4; Estimated Glomerular Filt Rate > 60; Glucose Random 130 mg/dL (60-115); Potassium 3.8 mmol/L (3.3-5.1); Sodium 140 mmol/L (135-145); Total Protein 7.4 g/dL (6.5-8.0)
--- NOTE | 2024-06-14 18:34 | ED.GENADULT ---
HPI - General Adult General Chief complaint: General Medical Stated complaint: from grp home, r flank pain, diarrhea Time Seen by Provider: 06/14/24 18:34 Source: patient Mode of arrival: ambulatory Limitations: no limitations History of Present Illness ED Provider: angella ACOSTA narrative: Patient history of diabetes bipolar disorder from nursing home comes here for having multiple watery diarrhea for last 2 days no nausea no vomiting no use of antibiotics no other member sick with same symptoms no fever no chills no blood in his stool Related Data Home Medications ?Medication ?Instructions ?Recorded ?Confirmed fluticasone 100 mcg-salmeterol 50 1 puff inhalation BID 08/01/21 03/10/24 mcg/dose blistr powdr for inhalation (Advair Diskus) umeclidinium 62.5 mcg/actuation 1 inh inhalation QAM 08/01/21 03/10/24 blister powder for inhalation (Incruse Ellipta) cholecalciferol (vitamin D3) 25 25 mcg PO QAM 12/19/22 03/10/24 mcg (1,000 unit) tablet docusate sodium 100 mg capsule 100 mg PO QAM 12/19/22 03/10/24 gabapentin 400 mg capsule 400 mg PO TID 12/19/22 03/10/24 metformin 500 mg tablet,extended 1,000 mg PO DAILY 12/19/22 03/10/24 release 24 hr pantoprazole 40 mg tablet,delayed 40 mg PO BID 12/19/22 03/10/24 release fluticasone propionate 50 1 spray intranasal DAILY 12/20/22 03/10/24 mcg/actuation nasal spray,suspension ferrous sulfate 325 mg (65 mg 325 mg PO DAILY 03/10/24 03/10/24 iron) tablet (FeroSul) hydroxyzine pamoate 100 mg capsule 100 mg PO BEDTIME 03/10/24 03/10/24 hydroxyzine pamoate 50 mg capsule 100 mg PO BID PRN Anxiety 03/10/24 03/10/24 mometasone-formoterol HFA 200 2 puff inhalation BID 03/10/24 03/10/24 mcg-5 mcg/actuation aerosol inhaler (Dulera) quetiapine 100 mg tablet 200 mg PO BEDTIME 03/10/24 03/10/24 sitagliptin phosphate 100 mg 100 mg PO DAILY 03/10/24 03/10/24 tablet (Januvia) Previous Rx's ?Medication ?Instructions ?Recorded multivitamin (Daily-Emil tablet) 1 tab PO DAILY 30 days #30 tabs 08/15/21 ipratropium 0.5 mg-albuterol 3 mg 3 ml inhalation Q4H PRN Shortness 01/24/22 (2.5 mg base)/3 mL nebulization Of Breath #90 mL soln trazodone 100 mg tablet 200 mg (2 x 100 mg) PO BEDTIME #0 01/24/22 tabs carbamazepine 200 mg 800 mg (4 x 200 mg) PO BID 30 days 12/26/22 tablet,extended release,12 hr #240 tabs prazosin 5 mg capsule 5 mg PO BEDTIME 30 days #30 caps 01/01/23 vancomycin 125 mg capsule 125 mg PO QID 10 days #40 caps 03/02/24 Lactobacillus rhamnosus GG 15 1 cap PO DAILY #30 caps 03/24/24 billion cell sprinkle capsule (Culturelle) cefuroxime axetil 500 mg tablet 500 mg PO BID #19 tabs 03/24/24 doxycycline hyclate 100 mg capsule 100 mg PO BID #19 caps 03/24/24 ibuprofen 600 mg tablet 600 mg PO TID PRN fever or pain 03/24/24 #14 tabs levofloxacin 750 mg tablet 750 mg PO DAILY #5 tabs 03/25/24 cyclobenzaprine 7.5 mg tablet 7.5 mg PO TID PRN muscle spasm #20 04/03/24 tabs loperamide 2 mg tablet (Imodium 2 mg PO Q6H PRN loose stool #10 06/14/24 A-D) tabs Allergies Allergy/AdvReac Type Severity Reaction Status Date / Time sulfamethoxazole Allergy Intermediate Rash Verified 06/14/24 17:51 [From Bactrim] trimethoprim [From Bactrim] Allergy Intermediate Rash Verified 06/14/24 17:51 adhesive tape Allergy Rash Verified 06/14/24 17:51 Hawkins And Derivatives Allergy Gastrointestinal Verified 06/14/24 17:51 Upset Benzodiazepines AdvReac Intermediate Hives Verified 04/27/24 17:29 diazepam [From Valium] AdvReac Intermediate Irritable Verified 06/14/24 17:51 Review of Systems Review of Systems: Yes all other systems are reviewed and are negative PMFSH Past Medical History Medical History GERD (gastroesophageal reflux disease) Sleep apnea Asthma Hearing loss Diabetes mellitus, type 2 Social History Social History Household Members: Other Household Members Other:: 2 Housing: Other Housing Other:: [facility] Do you presently have visiting nurse or other home services: Yes Alcohol intake: never Patient Tobacco Use Status: Never used Tobacco e-Cigarette/Vaping Use: Never Used Advance Directives: No Advance Directives Information Provided: Yes Do you have a plan to hurt others: No Plan service: No Sexual orientation: Straight/Heterosexual Physical Exam ED Vital Signs: Vital Signs - 24 hr 06/14/24 17:49 06/14/24 19:15 06/14/24 20:21 Temperature 97.9 F 98.3 F Pulse Rate 94 90 Respiratory Rate 20 16 18 Blood Pressure 151/85 H 117/72 Pulse Oximetry 95 94 Oxygen Delivery Method Room Air Room Air 06/14/24 21:28 Temperature 98.0 F Pulse Rate 88 Respiratory Rate 16 Blood Pressure 121/74 Pulse Oximetry 96 Oxygen Delivery Method Room Air BMI result Body Mass Index 43.3 Appearance: Alert. Oriented X3. No acute distress. Eyes: No pallor or icterus ENT: Pharynx normal. Oral Mucosa moist Neck: Normal inspection. Neck supple. CVS: Normal heart rate and rhythm. Pulses normal. Respiratory: No respiratory distress. Equal air entry bilateral, no wheezing/rales/rhonchi Abdomen: Soft and nontender. Bowel sounds are present, no mass palpable, no CVA tenderness Skin: Skin warm and dry. Normal skin color. Normal skin turgor. Extremities: No lower extremity edema. No calf tenderness Neuro: Oriented X 3. Medications Administered Discontinued Medications Generic Name Dose Route Start Last Admin Trade Name Freq PRN Reason Stop Dose Admin Sodium Chloride 1,000 mls @ 999 mls/hr 06/14/24 18:57 06/14/24 20:20 Ns IV 06/14/24 19:57 Infused .Q1H1M ONE Infusion Morphine Sulfate 4 mg 06/14/24 18:57 06/14/24 19:15 Morphine Sulfate 4 Mg/Ml Cartridge IVPUSH 06/14/24 18:58 4 mg ONCE ONE Administration Protocol Ondansetron HCl 4 mg 06/14/24 18:57 06/14/24 19:15 Ondansetron Hcl 4 Mg/2 Ml Vial IVPUSH 06/14/24 18:58 4 mg ONCE ONE Administration Medical Decision Making Medical Decision Making [facility] Narrative: Patient has watery diarrhea likely viral no bowel movement in the ER patient is taking p.o. fluids labs are stable discharge patient home CT scan of the abdomen negative for acute Differential Diagnosis Differential Diagnoses: The differential diagnosis associated with the presentation includes Gastroenteritis/colitis/C diff Admission/Observation Consideration of admission/observation: Escalation of care including admission/observation considered Lab Data [facility] Lab Attestation statement: I reviewed the patient's lab results. 06/14/24 18:01 06/14/24 18:01 Labs: Lab Results 06/14/24 06/14/24 Range/Units 18:01 19:06 WBC 13.3 H (4.8-10.8) X10*3/uL RBC 4.71 (4.20-5.50) X10*6/uL Hgb 12.8 (12.0-16.0) g/dl Hct 38.6 (37.0-47.0) % MCV 82.0 (80.0-98.0) fL MCH 27.2 (27.0-33.0) pg MCHC 33.2 (31.0-35.0) g/dl RDW 15.5 (11.0-16.0) % Plt Count 281 (160-400) X10*3/uL MPV 9.2 L (9.4-12.3) fL Immature Gran % (Auto) 2.6 H (0.0-0.4) % Neut % (Auto) 77.7 H (45-73) % Lymph % (Auto) 14.0 L (20-40) % [place] % (Auto) 5.3 (2-11) % Eos % (Auto) 0.2 (0-4) % Baso % (Auto) 0.2 (0-2) % Lymph # (Auto) 1.9 (1.2-4.9) X10*3/uL [place] # (Auto) 0.7 (0.1-1.2) X10*3/uL Eos # (Auto) 0.0 (0.0-0.4) X10*3/uL Baso # (Auto) 0.0 (0.0-0.2) X10*3/uL Abs Immat Gran (auto) 0.34 H (0.00-0.03) X10*3/uL Absolute Neuts (auto) 10.3 H (2.0-8.3) x10*3/uL Absolute Nucleated RBC 0.000 (0.0-0.012) X10*3/uL Nucleated RBC % (auto) 0.0 (0.0-0.2) /100WBC Sodium 140 (135-145) mmol/L Potassium 3.8 (3.3-5.1) mmol/L Chloride 105 (96-108) mmol/L Carbon Dioxide 24 (22-29) mmol/L Anion Gap 15 (12-20) BUN 19 H (9-16) mg/dL Creatinine 0.77 (0.5-1.4) mg/dL Estim Creat Clear Calc 97.4 Estimated GFR > 60 Random Glucose 130 H (60-115) mg/dL Calcium 9.6 D (8.4-10.2) mg/dL Total Bilirubin 0.2 (0.0-1.0) mg/dL AST 21 (5-31) U/L ALT 20 (0-31) U/L Alkaline Phosphatase 109 (39-117) U/L Total Protein 7.4 (6.5-8.0) g/dL Albumin 4.3 (3.5-5.0) g/dL Lipase 18 (8-78) U/L Urine Color Yellow Urine Appearance Clear Urine pH 6.0 (5.0-9.0) Ur Specific Jackson 1.015 (1.005-1.025) Urine Protein Trace (Neg-Trace) mg/dL Urine Glucose (UA) Negative (Negative) mg/dL Urine Ketones Negative (Negative) mg/dL Urine Blood Negative (Negative) Urine Nitrite Negative (Negative) Ur Leukocyte Esterase Negative (Negative) Independent Interpretation I performed an independent interpretation of an: CT Scan Radiology Impression Discussion of test interpretation with radiology: I have reviewed the radiologist's reading. Radiologist Impression: CT/CT abdomen pelvis wo IV con IMPRESSION: 1. No hydronephrosis or nephrolithiasis. Unremarkable urinary bladder. 2. No small or large bowel obstruction. No bowel wall thickening or inflammatory change. Status post appendectomy. 3. No intra-abdominal mass, lymphadenopathy, or ascites. 4. Additional chronic findings are unchanged. Fleischner guidelines were followed. Electronically signed by: Lazarus Wiseman MD 06/14/2024 08:03 PM [facility] Discharge Plan Discharge Clinical Impression: Diarrhea Patient Disposition: Home, Self-Care Instructions: Acute Diarrhea (ED) Additional Instructions: Drink plenty of fluids Follow with your PCP Take Imodium 1 tablet after every loose bowels every 6 hours maximum 4 tablets in 24 hours as needed Prescriptions: New loperamide [Imodium A-D] 2 mg tablet 2 mg PO Q6H PRN (Reason: loose stool) Qty: 10 0RF No Action ipratropium-albuterol 0.5 mg-3 mg(2.5 mg base)/3 mL Solution For Nebulization 3 ml inhalation Q4H PRN (Reason: Shortness Of Breath) Qty: 90 0RF trazodone 100 mg Tablet 200 mg PO BEDTIME Qty: 0 0RF fluticasone propion-salmeterol [Advair Diskus] 100-50 mcg/dose blister with device 1 puff inhalation BID Incruse Ellipta 62.5 mcg/actuation Blister With Device 1 inh INHALATION QAM multivitamin [Daily-Emil] Tablet 1 tab PO DAILY 30 Days Qty: 30 0RF cefuroxime axetil 500 mg tablet 500 mg PO BID Qty: 19 0RF doxycycline hyclate 100 mg capsule 100 mg PO BID Qty: 19 0RF Culturelle 15 billion cell capsule, sprinkle 1 cap PO DAILY Qty: 30 0RF ibuprofen 600 mg tablet 600 mg PO TID PRN (Reason: fever or pain) Qty: 14 0RF levofloxacin 750 mg tablet 750 mg PO DAILY Qty: 5 0RF cyclobenzaprine 7.5 mg tablet 7.5 mg PO TID PRN (Reason: muscle spasm) Qty: 20 0RF gabapentin 400 mg capsule 400 mg PO TID metformin 500 mg tablet extended release 24 hr 1,000 mg PO DAILY cholecalciferol (vitamin D3) 25 mcg (1,000 unit) tablet 25 mcg PO QAM pantoprazole 40 mg tablet,delayed release (DR/EC) 40 mg PO BID docusate sodium 100 mg capsule 100 mg PO QAM fluticasone propionate 50 mcg/actuation spray,suspension 1 spray intranasal DAILY carbamazepine 200 mg Tablet Extended Release 12 Hr 800 mg PO BID 30 Days Qty: 240 0RF prazosin 5 mg capsule 5 mg PO BEDTIME 30 Days Qty: 30 0RF vancomycin 125 mg capsule 125 mg PO QID 10 Days Qty: 40 0RF quetiapine 100 mg tablet 200 mg PO BEDTIME ferrous sulfate [FeroSul] 325 mg (65 mg iron) tablet 325 mg PO DAILY Januvia 100 mg tablet 100 mg PO DAILY Dulera 200-5 mcg/actuation HFA aerosol inhaler 2 puff inhalation BID hydroxyzine pamoate 100 mg capsule 100 mg PO BEDTIME hydroxyzine pamoate 50 mg capsule 100 mg PO BID PRN (Reason: Anxiety) Stand Alone Forms: Work/School Release Interventions: ED Discharge Assessment Last Done: 06/14/24 21:28 Discharge Date/Time: 06/14/24 21:28 Print Language: Sammarinese
[2024-06-14 18:57] LABS: Lipase 18 U/L (8-78)
--- NOTE | 2024-06-14 19:09 | PC.NURSE ---
Patient is alert and oriented x4, ambulates independently with a steady gait. Urine specimen collected via clean catch and sent to lab for processing. Patient currently resting on a stretcher bed, call collado in reach.
[2024-06-14 19:15] VITALS: RESP 16
[2024-06-14] MEDS: Morphine Sulfate 4 MG/ML CARTRIDGE IVPUSH (19:15)
[2024-06-14] MEDS: ondansetron HCL 4 MG/2 ML VIAL IVPUSH (19:15)
[2024-06-14 19:16] LABS: Appearance Urine Clear; Color Urine Yellow; Glucose Urine UA Negative (Negative); Leukocyte Esterase Urine Negative (Negative); Nitrite Urine Negative (Negative); Specific Gravity - Urine 1.015 (1.005-1.025); Urine Blood Negative (Negative); Urine Ketones Negative (Negative); Urine Protein Trace mg/dL (Neg-Trace)
[2024-06-14] MEDS: 0.9 % Sodium Chloride 1,000 ML 999 ML IV (19:16)
--- NOTE | 2024-06-14 19:20 | PC.NURSE ---
Patient medicated per MAR.
[2024-06-14 20:21] VITALS: BP 117/72; PULSE 90; RESP 18; TEMP 36.8; O2SAT 94
[2024-06-14 21:28] VITALS: BP 121/74; PULSE 88; RESP 16; TEMP 36.7; O2SAT 96
== END 2024-06-14 21:28 | disposition home or self-care (01) ==
PROVIDERS: Emergency Provider Internal Medicine; PCP Physician Assistant
DX: R19.7 Diarrhea, unspecified (principal); R10.2 Pelvic and perineal pain; F31.9 Bipolar disorder, unspecified; E11.9 Type 2 diabetes mellitus without complications; Z79.899 Other long term (current) drug therapy; Z79.84 Long term (current) use of oral hypoglycemic drugs
CPT/HCPCS: 36415; 74176; 80053; 81003; 83690; 85025; 96361; 96374; 96375; 99284; J2270; J2405

== ENCOUNTER 2024-07-02 12:19 | Outpatient (REF) | payer MEDICARE, MEDICAID, SELFPAY ==
--- OUTSIDE RECORDS SUMMARY | 2024-07-02 12:22 | XMS_ITS | Data Portability ---
Author Organization 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 Seen in the ED 02/15 and dx w pna based on symptoms though cxr clear. Today vomited her eggs. feeling chills and poor appetite throughout the day. she states that she cannot get a good breath in. also feeling generally weak, i reviewed her vital signs, overall reassuring chem and ekg. I offered her zofran and IV fluid. Pt declines treatment and reassessment by [facility], and says that she prefers to be evaluated in the ED. [email or web address] Not available 02/22/2024 21:25:54 Plan of Treatment Reminders Order Date Submit Date Provider Last Modified By Organization Details Last Modified Time Details Appointments None recorded. Lab BMP, serum or plasma 2023 024 [facility], [address] [place] [address], [id number], 21:27:51 hemoglobin + hematocrit, blood [email or web address], [phone], 21:27:51 Referral None recorded. Procedures None recorded. Surgeries None recorded. Imaging electrocard iogram 2023 [email or web address], [phone], 4 13:53:44 Medication Orders None recorded. Patient TargetsNo targets recorded. Patient InstructionsNo instructions recorded. Reason for Referral None Reported. Results Created Date Observation Date Name Description Value Unit Range Abnormal Flag Note LastModifiedBy Organization Detail LastModifiedTime 02/22/20 24 02/22/2024 rachael krishnan am No observ ation record ed. [facility] [address] [place] [address], [phone], 02/22/2024 21:54:04 Result Notes None recorded. Procedures Surgical History None recorded. Imaging Results Imaging Date Name Status LastModified by Organization Details LastModified Time 02/22/2024 electrocardiogram completed [facility] [address] [place] [address], [phone], 02/22/2024 21:54:04 Procedure Notes None recorded. Medical Equipment None Reported. Allergies Allergen ID Allergen Name Allergen Category Reaction Reaction Severity Criticality Documentation Date Start Date Code Code System Note Provider Name and Address Organization Details Recorded Time 8941 Bactrim medicatio n Not available Not available Not available 05/19/2024 [id number] [id number] RxNorm Not Available [facility] - production 03:47:52 Medications Name Sig Start Date Stop Date Status Note LastModified by Organization Details LastModified Time hydroxyzine pamoate 100 mg capsule active Not Available Not Available Not Available amoxicillin 500 mg capsule active Not Available Not Available N ot Available latanoprost 0.005 % eye drops PLACE 1 DROP IN BOTH EYES EVERY DAY AT BEDTIME active Not Available Not Available No t Available ipratropium 0.5 mg-albuterol 3 mg (2.5 mg base)/3 mL nebulization soln active Not Available Not Available Not Available Vitamin C 500 mg tablet active Not Available Not Available No t Available cetirizine 10 mg tablet active Not Available Not Available No t Available carbamazepine ER 100 mg tablet,extended release,12 hr active Not Available Not Availabl e Not Available FreeStyle Lancets 28 gauge active Not Available Not Available Not Available famotidine 40 mg tablet active Not Available Not Available No t Available gabapentin 400 mg capsule active Not Available Not Available N ot Available prednisone 5 mg tablet active Not Available Not Available Not Available quetiapine 200 mg tablet active Not Available Not Available No t Available hydroxyzine pamoate 50 mg capsule active Not Available Not Available Not Available quetiapine 100 mg tablet active Not Available Not Available No t Available acetaminophen 500 mg tablet active Not Available Not Availabl e Not Available triamcinolone acetonide 0.1 % topical cream active Not Available Not Availabl e Not Available carbamazepine ER 400 mg tablet,extended release,12 hr active Not Available Not Availabl e Not Available prazosin 5 mg capsule active Not Available Not Available Not Available trazodone 100 mg tablet active Not Available Not Available No t Available carbamazepine ER 200 mg tablet,extended release,12 hr active Not Available Not Availabl e Not Available pantoprazole 40 mg tablet,delayed release active Not Available Not Available Not Available clotrimazole-be tamethasone 1 %-0.05 % topical cream active Not Available Not Availabl e Not Available prednisone 50 mg tablet active Not Available Not Available No t Available calcium 200 mg (as calcium carbonate 500 mg) chewable tablet active Not Available Not Available Not Available docusate sodium 100 mg capsule active Not Available Not Availab le Not Available Dairy-Aid 3,000 unit tablet active Not Available Not Available Not Available ammonium lactate 12 % topical cream active Not Available Not Availabl e Not Available piroxicam 10 mg capsule active Not Available Not Available Not Available fluticasone propionate 50 mcg/actuation nasal spray,suspensio n active Not Available Not Available Not Available metformin ER 500 mg tablet,extended release 24 hr active Not Available Not Availabl e Not Available prazosin 2 mg capsule active Not Available Not Available Not Available amoxicillin 875 mg-potassium clavulanate 125 mg tablet active Not Available Not Available No t Available Ventolin HFA 90 mcg/actuation aerosol inhaler active Not Available Not Availa ble Not Available carbamazepine ER 300 mg capsule,extende d release [id number] active Not Available Not Available N ot Available quetiapine 50 mg tablet active Not Available Not Available No t Available cholecalciferol (vitamin D3) 25 mcg (1,000 unit) tablet active Not Available Not Available Not Available ferrous gluconate 324 mg (38 mg iron) tablet active Not Available Not Available Not Available calamine 8 %-zinc oxide 8 % lotion active Not Available Not Available Not Available Culturelle [employer] 10 billion cell-200 mg sprinkle capsule active Not Available Not Available Not Available Dulera 200 mcg-5 mcg/actuation HFA aerosol inhaler INHALE 2 PUFFS BY MOUTH INTO THE LUNGS TWICE A DAY active Not Available Not Available No t Available Incruse Ellipta 62.5 mcg/actuation powder for inhalation active Not Available Not Available N ot Available Wixela Inhub 100 mcg-50 mcg/dose powder for inhalation INHALE 1 PUFF BY MOUTH TWICE A DAY active Not Available Not Available No t Available Daily-Emil (with folic acid) 400 mcg tablet active Not Available Not Available Not Available Vitals Date Recorded Body weight Body temperature Respiratory rate Body height Heart rate Oxygen saturation Oxygen saturation in Arterial blood by Pulse oximetry Systolic blood pressure Diastolic blood pressure Provider Name and Address Organization Details Last Updated DateTime 4 161099. 632 g 97.5 [degF] 20 /min 157.48 cm 96 /min 98 % 98 % 164 mm[Hg] 113 mm[Hg] Not Available [employer] 4 19:31:52 Date Recorded Body weight Body temperature Respiratory rate Heart rate Oxygen saturation Oxygen saturation in Arterial blood by Pulse oximetry Body height Systolic blood pressure Diastolic blood pressure Provider Name and Address Organization Details Last Updated DateTime 4 725711. 592 g 98.2 [degF] 22 /min 108 /min 97 % 97 % 170.18 cm 123 mm[Hg] 86 mm[Hg] Not Available [employer] 4 20:42:42 Social History None recorded. Functional Status None recorded. Mental Status None recorded. Family History Nothing Reported. Medical History No medical history recorded. Gynecological HistoryNo gynecological history recorded. Obstetrics History GPAL:G 0 P 0 0 0 0 Past Encounters Encounter ID Performer Location Encounter Start Date Encounter Closed Date Diagnosis/Indication Diagnosis SNOMED-CT Code Diagnosis ICD10 Code [id number] Gloria Sheehan MD [facility] [address] [place] [phone] 02/17/2024 19:31:50 02/18/2024 14:46:56 Dyspnea 604732799 R06.00 [id number] Gary Alexander MD [facility] [address] [place] [phone] 02/22/2024 20:42:28 02/23/2024 22:19:18 Weakness present 542625366 M62.81 Health Concerns Section Related Observation LastModified by Organization Detai ls LastModified Time None Recorded Concern Status LastModified by Organization Details LastModified Time None Recorded Advance Directives Directive None Recorded Payers Encounter Date Sequence Insurance Name Policy Number Policy Acosta Covered Member ID Acosta Member ID Guarantor Name 02/17/2024 1 [facility] - DOS ON OR AFTER 2022 - DUAL ELIGIBLE - LONG-TERM OPTIONS AND ONE CARE (MEDICARE REPLACEMENT/ADV ANTAGE - HMO) Arpita Calix [id number] Arpita Calix 02/22/2024 1 [facility] - DOS ON OR AFTER 2022 - DUAL ELIGIBLE - LONG-TERM OPTIONS AND ONE CARE (MEDICARE REPLACEMENT/ADV ANTAGE - HMO) Arpita Calix [id number] Arpita Calix Notes Date Note Type Note Provider Name and Address Organization Details Recorded Time 02/17/2024 text/html [facility] Nurse Triage Notes (Zuri Kwan): Reason For Request: Pt reporting a hard time breathing>was told it was a viral infection at the ED>medically complex as the mbr states she has a brain injury>predominant symptoms are cough + SOBMbr states she uses [facility] in [place], [place] but is not sure which one out i Chief Complaints: Cough, Shortness of Breath/Dyspnea PMH: Severe Persistent Mental Illness (SPMI), COPD/Asthma Allergies: Bactrim Other Allergies: Valium, Bactrim, Benzo, Naprosyn, adhesives Comments: Allergies: Valium, Bactrim, Benzo, Naprosyn, adhesivesPatient states she had CXR done while admitted to hospital for psychiatric admission. Finished course of Prednisone and antibiotics last Sat. No improvement with medications. Ongoing SOB and non-productive cough. Using rescue inhaler with no improvement. No fever. 1800 member called again feeling she is getting worse. Member was seen in the ER, stated that she had water in the lungs was given prednisone and lasix, per member said her lungs sounded better ...................... ...................... ...................... ...................... ...................... ...................... ......... Rod Finisher Note From Ritesh Gerard: [facility] visit for female patient. Pt complains of shortness of breath. Pt has had two ED visits this month for same issue (in addition to a combined mental health visit). Pt was discharged with lasix, antibiotics, and prednisone. Pt reports she feels no better. V/S taken as listed. Pt afebrile. Lung sounds clear. Pt's SpO2 was good but she was borderline tachypnic, uncertain if due to anxiety or underlying disease process. Pt has not been taking her duoneb treatments as prescribed. Pt instructed to take her duoneb. Pt completed treatment and felt no better. Consulted with [facility] Dr. Sheehan who ordered COVID swab which came back negative. Pt ultimately decided to go to ED. 911 called with [facility] arriving for transport. Report given to transporting medic. ...................... ...................... ...................... ...................... ...................... ...................... ......... Disposition: Fulfilled Gloria Sheehan MD [address] [facility] [address], [place], [phone], [employer] 02/17/2024 21:03:45 02/22/2024 text/html [facility] Nurse Triage Notes (Kristina Cartagena): Reason For Request: Pt reporting being in the hospital, shaking unable to keep food down>belabored breathing>weakness Chief Complaints: Weakness/Lethargy, Shortness of Breath/Dyspnea PMH: Severe Persistent Mental Illness (SPMI), COPD/Asthma, Diabetes Allergies: Bactrim Other Allergies: sulfa abx, oxycodone, bactrim , adhesive, naprosyn, and valium. Comments: Member calling in to place a referral, identified via name and . PMHx astham, DM and SPMI. ALLERGIES- sulfa abx, oxycodone, bactrim, adhesive, naprosyn and valium. Member seen by [facility] 02/16 for dyspnea. Member presented to the ED and was started on Doxycycline for supposed PNA. Member calling in today with no change in symptoms. Member states, I am not well , she is having diarrhea, nausea, cough and LOPEZ, +weakness and inability to eat. She is unsure if she has a fever, denies chills. Member would like to be evaluated. Rod Finisher Organization Information for [employer] Legal Name: [facility] Address: [address] [place] [address], [place] [address], Dock Operator: Benitez Hernandez MD CLIA No.: [id number] Rod Finisher POC Test Results from [facility] (20:37:37) pH: 7.468 pH units pCO2: 38.6 mmHg pO2: 38.0 mmHg Na: 136 mmol/L K: 3.7 mmol/L iCa: 1.06 mmol/L Cl: 98 mmol/L TCO2: 27.9 mEq/L Hct: 37 % Hb: 12.4 g/dL Glu: 213 mg/dL Lac: 2.39 mmol/L Cr: 0.47 mg/dL BUN: 11 mg/dL A Attachments uploaded as part of this test result can be found under Documents section. Gary Alexander MD [address] [facility], [place], [phone], [facility] - [facility] 02/22/2024 21:28:08 OBGyn Episode No OBEpisode recorded.
--- OUTSIDE RECORDS SUMMARY | 2024-07-02 12:22 | XMS_ITS | Data Portability ---
Author Organization [place] - [facility], Allergy Address [address] [address] Assessment No assessment recorded. Plan of Treatment Reminders Order Date Submit Date Provider Last Modified By Organization Details Last Modified Time Details Appointments None record ed. Lab None record ed. Referral None record ed. Procedures None record ed. Surgeries None record ed. Imaging None record ed. Medication Orders None record ed. Patient TargetsNo targets recorded. Patient InstructionsNo instructions recorded. Reason for Referral None Reported. Results Created Date Observation Date Name Description Value Unit Range Abnormal Flag Note LastModifiedBy Organization Detail LastModifiedTime 03/10/20 24 10/02/2018 imagi ng/di agnos tic resul t No observ ation record ed. [email or web address] Not Available 15:15:11 03/10/20 24 12/13/2023 imagi ng/di agnos tic resul t No observ ation record ed. [email or web address] Not Available 15:15:17 03/10/20 24 12/13/2023 imagi ng/di agnos tic resul t No observ ation record ed. [email or web address] Not Available 15:15:18 03/10/20 24 04/19/2020 audio gram No observ ation record ed. [email or web address] Not Available 15:15:19 03/10/20 24 09/18/2018 audio gram No observ ation record ed. [email or web address] Not Available 15:15:24 03/10/20 24 10/02/2018 audio gram No observ ation record ed. [email or web address] Not Available 15:15:28 03/10/2004/19/2020 audio gram No observ ation record ed. [email or web address] Not Available 15:15:34 Result Notes None recorded. Problems Name Problem SNOMED Code Status Onset Date Resolution Date Notes Provider Name and Address Organization Details Recorded Time Otalgia of left ear 6291216508 Active 2018 Otalgia, left ear; Note: Date Diagnosed : 09/18/2018 11:32 AM (H92.02) Not Available [facility] 4 02:50:02 Sensorine ural hearing loss of bilateral ears 075842724 Active 2018 Sensorine ural hearing loss, bilateral ; Note: Date Diagnosed : 09/18/2018 12:33 PM (H90.3) Not Available [facility] 4 02:50:02 Pain of left temporoma ndibular joint [id number] Active 2018 Arthralgi a of left temporoma ndibular joint; Note: Date Diagnosed : 10/02/2018 4:27 PM (M26.622) Not Available [facility] 4 02:50:00 Problem Notes None recorded. Procedures Surgical History Date Name Laterality Status Provider Name and Address Organization Details Recorded Time 12/13/19 Comp Audio with Tymps (28750 & 36362) completed JAQUELIN MOSES, [address], [address], [place] - [facility] 12/13/2023 14:23:06 Remove tonsils and adenoids completed Gaby Stahl [place] - [facility] 12/13/2023 13:45:09 Appendectomy completed Gaby Stahl [place] - [facility] 12/13/2023 13:45:16 procedure on brain completed Gaby Stahl [place] - [facility] 12/13/2023 13:45:24 Imaging Results Imaging Date Name Status LastModified by Organiz ation Details LastModified Time 10/02/2018 imaging/diagno stic result completed Information not available 03/10/2024 15:15:11 12/13/2023 imaging/diagno stic result completed Information not available 03/10/2024 15:15:17 12/13/2023 imaging/diagno stic result completed Information not available 03/10/2024 15:15:18 04/19/2020 audiogram completed Information not available 03/10/2024 15:15:19 09/18/2018 audiogram completed Information not available 03/10/2024 15:15:24 10/02/2018 audiogram completed Information not available 03/10/2024 15:15:28 04/19/2020 audiogram completed Information not available 03/10/2024 15:15:34 Procedure Notes None recorded. Medical Equipment None Reported. Allergies Allergen ID Allergen Name Allergen Category Reaction Reaction Severity Criticality Documentation Date Start Date Code Code System Note Provider Name and Address Organization Details Recorded Time 574265 Product containin g benzodiaz epine (product) medicatio n other Not available Not available 12/03/2023 18652 007 SNOMED React ion: unkno wn, unspe cifie d;; Not Available [facility] 4 01:12:33 905642 Bactrim medicatio n other Not available Not available 12/03/2023 08277 9 RxNorm React ion: unkno wn, unspe cifie d;; Not Available [facility] 4 01:12:34 547047 Valium medicatio n other Not available Not available 12/03/2023 08458 2 RxNorm React ion: unkno wn, unspe cifie d;; Not Available [facility] 4 01:12:36 Medications Name Sig Start Date Stop Date Status Note LastModified by Organization Details LastModified Time hydroxyzi ne pamoate 100 mg capsule active Medicati on ID: [id number] B rand Name: hydroxyz ine pamoate Send Method: E-Prescr ibed Sub s Allowed: subs OK Medic ationGen ericName : hydroxyz ine pamoate Not Available Not Available Not Available amoxicill in 500 mg capsule 12/12 completed Not Available Not Available Not Available latanopro st 0.005 % eye drops PLACE 1 DROP IN BOTH EYES EVERY DAY AT BEDTIME active Not Available Not Available No t Available Miralax 17 gram/dose oral powder 2018 active Medicati on ID: [id number] B rand Name: Miralax Send Method: E-Prescr ibed Sub s Allowed: subs OK Medic ationGen ericName : Miralax Not Available Not Available Not Available clonidine HCl 0.1 mg tablet active Medicati on ID: [id number] B rand Name: clonidin e HCl Send Method: E-Prescr ibed Sub s Allowed: subs OK Medic ationGen ericName : clonidin e HCl Not Available Not Available Not Available ipratropi um 0.5 mg-albute rol 3 mg (2.5 mg base)/3 mL nebulizat ion soln active Not Available Not Available Not Available Vitamin C 500 mg tablet active Not Available Not Available Not Available cetirizin e 10 mg tablet active Not Available Not Available Not Available prazosin 1 mg capsule active Medicati on ID: [id number] B rand Name: prazosin Send Method: E-Prescr ibed Sub s Allowed: subs OK Medic ationGen ericName : prazosin Not Available Not Available Not Available carbamaze pine ER 100 mg tablet,ex tended release,1 2 hr 12/12 completed Not Available Not Available Not Available FreeStyle Lancets 28 gauge active Not Available Not Available Not Available famotidin e 40 mg tablet active Not Available Not Available Not Available clonidine HCl 0.3 mg tablet active Medicati on ID: [id number] B rand Name: clonidin e HCl Send Method: E-Prescr ibed Sub s Allowed: subs OK Medic ationGen ericName : clonidin e HCl Not Available Not Available Not Available gabapenti n 400 mg capsule active Medicati on ID: [id number] B rand Name: gabapent in Send Method: E-Prescr ibed Sub s Allowed: subs OK Medic ationGen ericName : gabapent in Not Available Not Available Not Available quetiapin e 200 mg tablet 12/12 completed Not Available Not Available Not Available hydroxyzi ne pamoate 50 mg capsule 12/12 completed Not Available Not Available Not Available penicilli n V potassium 500 mg tablet TAKE 1 TABLET BY MOUTH EVERY 8 HOURS 12/12 completed Not Available Not Available Not Available Advair Diskus 100 mcg-50 mcg/dose powder for inhalatio n active Medicati on ID: [id number] B rand Name: Advair Diskus S end Method: E-Prescr ibed Sub s Allowed: subs OK Medic ationGen ericName : Advair Diskus Not Available Not Available Not Available hydroxyzi ne HCl 50 mg tablet active Medicati on ID: [id number] B rand Name: hydroxyz ine HCl Send Method: E-Prescr ibed Sub s Allowed: subs OK Medic ationGen ericName : hydroxyz ine HCl Not Available Not Available Not Available aspirin 81 mg tablet,de layed release active Not Available Not Available Not Available quetiapin e 100 mg tablet 12/12 completed Not Available Not Available Not Available acetamino phen 500 mg tablet TAKE 2 TABLETS BY MOUTH EVERY 8 HOURS NEEDED active Not Available Not Available No t Available triamcino lone acetonide 0.1 % topical cream active Not Available Not Available Not Available ondansetr on 8 mg disintegr ating tablet active Medicati on ID: [id number] B rand Name: ondanset edel Send Method: E-Prescr ibed Sub s Allowed: subs OK Medic ationGen ericName : ondanset edel Not Available Not Available Not Available carbamaze pine ER 400 mg tablet,ex tended release,1 2 hr active Not Available Not Available Not Available prazosin 5 mg capsule active Not Available Not Available Not Available trazodone 100 mg tablet active Medicati on ID: [id number] B rand Name: trazodon e Send Method: E-Prescr ibed Sub s Allowed: subs OK Medic ationGen ericName : trazodon e Not Available Not Available Not Available carbamaze pine ER 200 mg tablet,ex tended release,1 2 hr active Not Available Not Available Not Available pantopraz ole 40 mg tablet,de layed release active Not Available Not Available Not Available clotrimaz ole-betam ethasone 1 %-0.05 % topical cream active Medicati on ID: [id number] B rand Name: clotrima zole-bet amethaso ne Send Method: E-Prescr ibed Sub s Allowed: subs OK Medic ationGen ericName : clotrima zole-bet amethaso ne Not Available Not Available Not Available prednison e 50 mg tablet 12/12 completed Not Available Not Available Not Available calcium 200 mg (as calcium carbonate 500 mg) chewable tablet active Not Available Not Available Not Available ibuprofen 400 mg tablet 2018 active Medicati on ID: [id number] D uration Value: 7 Brand Name: ibuprofe n Send Method: E-Prescr ibed Sub s Allowed: subs OK Medic ationGen ericName : ibuprofe n Not Available Not Available Not Available docusate sodium 100 mg capsule active Not Available Not Available Not Available omeprazol e 20 mg capsule,d elayed release 2018 active Medicati on ID: [id number] D uration Value: 28 Brand Name: omeprazo le Send Method: E-Prescr ibed Sub s Allowed: subs OK Medic ationGen ericName : omeprazo le Not Available Not Available Not Available Dairy-Aid 3,000 unit tablet active Not Available Not Available Not Available hydroxyzi ne HCl 25 mg tablet active Medicati on ID: [id number] B rand Name: hydroxyz ine HCl Send Method: E-Prescr ibed Sub s Allowed: subs OK Medic ationGen ericName : hydroxyz ine HCl Not Available Not Available Not Available ammonium lactate 12 % topical cream active Not Available Not Available Not Available Culturell e 10 billion cell capsule 2018 active Medicati on ID: [id number] B rand Name: Culturel le Send Method: E-Prescr ibed Sub s Allowed: subs OK Medic ationGen ericName : Culturel le Not Available Not Available Not Available piroxicam 10 mg capsule active Not Available Not Available Not Available mupirocin 2 % topical ointment active Not Available Not Available Not Available gabapenti n 100 mg capsule active Medicati on ID: [id number] B rand Name: gabapent in Send Method: E-Prescr ibed Sub s Allowed: subs OK Medic ationGen ericName : gabapent in Not Available Not Available Not Available ibuprofen 600 mg tablet 12/12 completed Medicati on ID: [id number] B rand Name: ibuprofe n Send Method: E-Prescr ibed Sub s Allowed: subs OK Medic ationGen ericName : ibuprofe n Medica tion ID: [id number] B rand Name: ibuprofe n Send Method: E-Prescr ibed Sub s Allowed: subs OK Medic ationGen ericName : ibuprofe n Not Available Not Available Not Available ferrous sulfate 325 mg (65 mg iron) tablet,de layed release 2018 active Medicati on ID: [id number] B rand Name: ferrous sulfate Send Method: E-Prescr ibed Sub s Allowed: subs OK Medic ationGen ericName : ferrous sulfate Not Available Not Available Not Available ketoconaz ole 2 % topical cream 2018 active Medicati on ID: [id number] D uration Value: 30 Brand Name: ketocona zole Sen d Method: E-Prescr ibed Sub s Allowed: subs OK Medic ationGen ericName : ketocona zole Not Available Not Available Not Available cefdinir 300 mg capsule 12/12 completed Medicati on ID: [id number] D uration Value: 7 Brand Name: cefdinir Send Method: E-Prescr ibed Sub s Allowed: subs OK Medic ationGen ericName : cefdinir Medicat ion ID: [id number] D uration Value: 7 Brand Name: cefdinir Send Method: E-Prescr ibed Sub s Allowed: subs OK Medic ationGen ericName : cefdinir Not Available Not Available Not Available fluticaso ne propionat e 50 mcg/actua tion nasal spray,zara pension active Not Available Not Available Not Available metformin ER 500 mg tablet,ex tended release 24 hr active Not Available Not Available Not Available prazosin 2 mg capsule active Medicati on ID: [id number] B rand Name: prazosin Send Method: E-Prescr ibed Sub s Allowed: subs OK Medic ationGen ericName : prazosin Not Available Not Available Not Available amoxicill in 875 mg-potass ium clavulana te 125 mg tablet 12/12 completed Not Available Not Available Not Available Ventolin HFA 90 mcg/actua tion aerosol inhaler active Not Available Not Available Not Available simethico ne 80 mg chewable tablet active Not Available Not Available Not Available carbamaze pine ER 100 mg capsule,e xtended release [id number] 2018 active Medicati on ID: [id number] D uration Value: 7 Brand Name: carbamaz epine Se nd Method: E-Prescr ibed Sub s Allowed: subs OK Medic ationGen ericName : carbamaz epine Not Available Not Available Not Available carbamaze pine ER 300 mg capsule,e xtended release [id number] r 12/12 completed Not Available Not Available Not Available quetiapin e 50 mg tablet active Not Available Not Available Not Available cholecalc iferol (vitamin D3) 25 mcg (1,000 unit) tablet active Not Available Not Available Not Available ferrous gluconate 324 mg (38 mg iron) tablet 12/12 completed Not Available Not Available Not Available Symbicort 80 mcg-4.5 mcg/actua tion HFA aerosol inhaler active Medicati on ID: [id number] B rand Name: Symbicor t Send Method: E-Prescr ibed Sub s Allowed: subs OK Medic ationGen ericName : Symbicor t Not Available Not Available Not Available FeroSul 325 mg (65 mg iron) tablet 12/12 completed Not Available Not Available Not Available calamine 8 %-zinc oxide 8 % lotion 12/12 completed Not Available Not Available Not Available Culturell e [facility] [employer] 10 billion cell-200 mg sprinkle capsule 12/12 completed Not Available Not Available Not Available Dulera 200 mcg-5 mcg/actua tion HFA aerosol inhaler active Not Available Not Available Not Available Tussin DM 20 mg-400 mg tablet 2018 active Medicati on ID: [id number] B rand Name: Tussin DM Send Method: E-Prescr ibed Sub s Allowed: subs OK Medic ationGen ericName : Tussin DM Not Available Not Available Not Available Anoro Ellipta 62.5 mcg-25 mcg/actua tion powder for inhalatio n INHALE 1 PUFF DAILY active Not Available Not Available No t Available Incruse Ellipta 62.5 mcg/actua tion powder for inhalatio n active Medicati on ID: [id number] B rand Name: Incruse Ellipta Send Method: E-Prescr ibed Sub s Allowed: subs OK Medic ationGen ericName : Incruse Ellipta Not Available Not Available Not Available Spiriva Respimat 1.25 mcg/actua tion solution for inhalatio n active Medicati on ID: [id number] B rand Name: Spiriva Respimat Send Method: E-Prescr ibed Sub s Allowed: subs OK Medic ationGen ericName : Spiriva Respimat Not Available Not Available Not Available Daily-Vit e (with folic acid) 400 mcg tablet active Not Available Not Available Not Available Vitals None Recorded Social History None recorded. Functional Status None recorded. Mental Status None recorded. Family History Nothing Reported. Medical History Condition Response Anxiety Y Glaucoma Y Sleep Disorder Y GERD/Reflux Y Gynecological HistoryNo gynecological history recorded. Obstetrics History GPAL:G 0 P 0 0 0 0 Past Encounters Encounter ID Performer Location Encounter Start Date Encounter Closed Date Diagnosis/Indication Diagnosis SNOMED-CT Code Diagnosis ICD10 Code 150[address] MD [facility] [address] [place] [address] 12/13/2023 13:15:07 12/13/2023 16:04:41 Sensorineural hearing loss of bilateral ears [id number] H90.3 Health Concerns Section Related Observation LastModified by Organization Detai ls LastModified Time None Recorded Concern Status LastModified by Organization Details LastModified Time None Recorded Advance Directives Directive None Recorded Payers Encounter Date Sequence Insurance Name Policy Number Policy Acosta Covered Member ID Acosta Member ID Guarantor Name 12/13/2023 2 [place]ARE [place] [employer] Arpita Mora Cal[employer] [id number] Arpita Mora [employer] 12/13/2023 3 [place] [facility] Arpita Calix [id number] Arpita Calix Notes Date Note Type Note Provider Name and Address Organization Details Recorded Time 12/13/2023 text/html 53 yo F with hearing loss. Previously seen March 2020 with normal hearing. Recently out of the hospital for mental health concerns. Did have a fall. Has had several concussions. CT October 2022 at [facility] no acute pathology. Normal mastoids. SUDHAKAR HAM MD [address], [address], [facility] - [facility] 12/13/2023 15:06:11 OBGyn Episode No OBEpisode recorded.
== END 2024-07-02 12:20 | disposition home or self-care (01) ==
LOC: HO.HAP 12:19
PROVIDERS: Visit Provider Otolaryngology
DX: Z13.89 Encounter for screening for other disorder (principal)

== ENCOUNTER 2024-08-15 16:07 | Emergency (ER) | payer MEDICARE, MEDICAID, SELFPAY ==
[2024-08-15 16:18] VITALS: BP 167/111; PULSE 90; O2SAT 94
[2024-08-15 16:34] VITALS: BP 169/88; PULSE 87; RESP 18; TEMP 36.4; O2SAT 96; BMI 47.6
--- OUTSIDE RECORDS SUMMARY | 2024-08-15 16:43 | XMS_ITS | Data Portability ---
Author Organization [place] - [facility], Allergy Address [address] [address] Assessment No assessment recorded. Plan of Treatment [...] Details Recorded Time Otalgia of left ear [id number] Active 2018 Otalgia, left ear; Note: Date Diagnosed : 09/18/2018 11:32 AM (H92.02) Not Available [facility] 4 02:50:02 Sensorine ural hearing loss of bilateral ears 123544122 Active 2018 Sensorine ural hearing loss, bilateral ; Note: Date Diagnosed : 09/18/2018 12:33 PM (H90.3) Not Available [facility] 4 02:50:02 Pain of left temporoma ndibular joint [id number] 909276 Active 2018 Arthralgi a of left temporoma ndibular joint; Note: Date Diagnosed : 10/02/2018 4:27 PM (M26.622) Not Available [facility] 4 02:50:00 Problem Notes None recorded. Procedures Surgical History Date Name Laterality Status Provider Name and Address Organization Details Recorded Time 12/13/19 Comp Audio with Tymps (17106 & 19026) completed JAQUELIN MOSES, [address], [address], [place] - [facility] 12/13/2023 14:23:06 Remove tonsils and adenoids completed Gaby Stahl [place] - [facility] 12/13/2023 13:45:09 Appendectomy completed Gaby Stahl [place] - [facility] 12/13/2023 13:45:16 procedure on brain completed Gaby Stahl [place] - [facility] 12/13/2023 13:45:24 Imaging Results Imaging Date [...] Name and Address Organization Details Recorded Time 598467 Product containin g benzodiaz epine (product) medicatio n other Not available Not available 12/03/2023 73085 007 SNOMED React ion: unkno wn, unspe cifie d;; Not Available [facility] 4 01:12:33 155595 Bactrim medicatio n other Not available Not available 12/03/2023 90152 9 RxNorm React ion: unkno wn, unspe cifie d;; Not Available [facility] 4 01:12:34 627141 Valium medicatio n other Not available Not available 12/03/2023 98350 2 RxNorm React ion: unkno wn, unspe cifie d;; Not Available [facility] 4 01:12:36 Medications Name Sig Start Date Stop Date Status Note LastModified by Organization Details LastModified Time hydroxyzi ne pamoate 100 mg capsule active Medicati on ID: 655636 B rand Name: hydroxyz ine pamoate Send [...] oral powder 2018 active Medicati on ID: 051456 B rand Name: Miralax Send Method: E-Prescr ibed Sub s Allowed: subs OK Medic ationGen ericName : Miralax Not Available Not Available Not Available clonidine HCl 0.1 mg tablet active Medicati on ID: 365728 B rand Name: clonidin e HCl Send [...] 1 mg capsule active Medicati on ID: 292142 B rand Name: prazosin Send Method: E-Prescr [...] 0.3 mg tablet active Medicati on ID: 868538 B rand Name: clonidin e HCl Send Method: E-Prescr ibed Sub s Allowed: subs OK Medic ationGen ericName : clonidin e HCl Not Available Not Available Not Available gabapenti n 400 mg capsule active Medicati on ID: 014664 B rand Name: gabapent in Send Method: [...] for inhalatio n active Medicati on ID: 476304 B rand Name: Advair Diskus S end Method: E-Prescr ibed Sub s Allowed: subs OK Medic ationGen ericName : Advair Diskus Not Available Not Available Not Available hydroxyzi ne HCl 50 mg tablet active Medicati on ID: 093723 B rand Name: hydroxyz ine HCl Send [...] disintegr ating tablet active Medicati on ID: 457762 B rand Name: ondanset edel Send Method: E-Prescr ibed Sub s Allowed: subs OK Medic ationGen ericName : ondanset edel Not Available Not Available Not Available carbamaze pine ER 400 mg tablet,ex tended release,1 2 hr active Not Available Not Available Not Available prazosin 5 mg capsule active Not Available Not Available Not Available trazodone 100 mg tablet active Medicati on ID: 242381 B rand Name: trazodon e Send Method: [...] % topical cream active Medicati on ID: 123733 B rand Name: clotrima zole-bet amethaso ne [...] mg tablet 2018 active Medicati on ID: 094089 D uration Value: 7 Brand Name: ibuprofe n Send Method: E-Prescr ibed Sub s Allowed: subs OK Medic ationGen ericName : ibuprofe n Not Available Not Available Not Available docusate sodium 100 mg capsule active Not Available Not Available Not Available omeprazol e 20 mg capsule,d elayed release 2018 active Medicati on ID: 804550 D uration Value: 28 Brand Name: omeprazo le Send Method: E-Prescr ibed Sub s Allowed: subs OK Medic ationGen ericName : omeprazo le Not Available Not Available Not Available Dairy-Aid 3,000 unit tablet active Not Available Not Available Not Available hydroxyzi ne HCl 25 mg tablet active Medicati on ID: 327163 B rand Name: hydroxyz ine HCl Send Method: E-Prescr ibed Sub s Allowed: subs OK Medic ationGen ericName : hydroxyz ine HCl Not Available Not Available Not Available ammonium lactate 12 % topical cream active Not Available Not Available Not Available Culturell e 10 billion cell capsule 2018 active Medicati on ID: 530611 B rand Name: Culturel le Send Method: E-Prescr ibed Sub s Allowed: subs OK Medic ationGen ericName : Culturel le Not Available Not Available Not Available piroxicam 10 mg capsule active Not Available Not Available Not Available mupirocin 2 % topical ointment active Not Available Not Available Not Available gabapenti n 100 mg capsule active Medicati on ID: 961347 B rand Name: gabapent in Send Method: E-Prescr ibed Sub s Allowed: subs OK Medic ationGen ericName : gabapent in Not Available Not Available Not Available ibuprofen 600 mg tablet 12/12 completed Medicati on ID: 578315 B rand Name: ibuprofe n Send Method: E-Prescr ibed Sub s Allowed: subs OK Medic ationGen ericName : ibuprofe n Medica tion ID: [id number] B rand Name: ibuprofe n Send Method: E-Prescr ibed Sub s Allowed: subs OK Medic ationGen ericName : ibuprofe n Not Available Not Available Not Available ferrous sulfate 325 mg (65 mg iron) tablet,de layed release 2018 active Medicati on ID: 704458 B rand Name: ferrous sulfate Send Method: E-Prescr ibed Sub s Allowed: subs OK Medic ationGen ericName : ferrous sulfate Not Available Not Available Not Available ketoconaz ole 2 % topical cream 2018 active Medicati on ID: 827112 D uration Value: 30 Brand Name: ketocona zole Sen d Method: E-Prescr ibed Sub s Allowed: subs OK Medic ationGen ericName : ketocona zole Not Available Not Available Not Available cefdinir 300 mg capsule 12/12 completed Medicati on ID: 359840 D uration Value: 7 Brand Name: cefdinir Send Method: E-Prescr ibed Sub s Allowed: subs OK Medic ationGen ericName : cefdinir Medicat ion ID: [id number] D uration Value: 7 Brand Name: cefdinir [...] 2 mg capsule active Medicati on ID: 611320 B rand Name: prazosin Send Method: E-Prescr [...] pine ER 100 mg capsule,e xtended release [id number] r 2018 active Medicati on ID: 294472 D uration Value: 7 Brand Name: carbamaz epine Se nd Method: E-Prescr ibed Sub s Allowed: subs OK Medic ationGen ericName : carbamaz epine Not Available Not Available Not Available carbamaze pine ER 300 mg capsule,e xtended release [id number] r 12/12 completed Not Available Not Available [...] HFA aerosol inhaler active Medicati on ID: 588004 B rand Name: Symbicor t Send Method: [...] mg tablet 2018 active Medicati on ID: 590563 B rand Name: Tussin DM Send Method: E-Prescr ibed Sub s Allowed: subs OK Medic ationGen ericName : Tussin DM Not Available Not Available Not Available Anoro Ellipta 62.5 mcg-25 mcg/actua tion powder for inhalatio n INHALE 1 PUFF DAILY active Not Available Not Available No t Available Incruse Ellipta 62.5 mcg/actua tion powder for inhalatio n active Medicati on ID: 113966 B rand Name: Incruse Ellipta Send Method: E-Prescr ibed Sub s Allowed: subs OK Medic ationGen ericName : Incruse Ellipta Not Available Not Available Not Available Spiriva Respimat 1.25 mcg/actua tion solution for inhalatio n active Medicati on ID: 916527 B rand Name: Spiriva Respimat Send Method: [...] Diagnosis/Indication Diagnosis SNOMED-CT Code Diagnosis ICD10 Code Diagnosis Note [id number] SUDHAKAR HAM MD [facility] [address] [place] [address] 12/13/2023 13:15:07 12/13/2023 16:04:41 Sensorineural hearing loss of bilateral ears [id number] H90.3 53-year-ol d female presents for hearing loss. Audiogram was reviewed showing normal downslopin g to moderate loss bilaterall y, progressed since previous testing in 2019. I did give her medical clearance for hearing aids. Audiologic al evaluation results: 12/13/2023 ight ear:{{Norm al Mild Mo derate Mod erately-se rico Sever e Profound Borderlin e normal#}} {{hearing sloping to to moderate s loping to moderately severe slo ping to severe slo ping to profound f lat high frequency low frequency mid frequency cookie bite collado curve hear ing sloping into a mild to moderate #}} {{with sen sorineural hearing loss with* cond uctive hearing loss with mixed hearing loss with}} {{excellen t* good fa ir poor no t measurable }} speech discrimina tion.Left ear:{{Norm al Mild Mo derate Mod erately-se rico Sever e Profound Borderlin e normal#}} {{hearing sloping to to moderate s loping to moderately severe slo ping to severe slo ping to profound f lat high frequency low frequency mid frequency cookie bite collado curve hear ing sloping into a mild to moderate#} } {{with sen sorineural hearing loss with* cond uctive hearing loss with mixed hearing loss with}} {{excellen t* good fa ir poor no t measurable }} speech discrimina tion. Tympanomet ry:Right Ear:{{Type A* Type As Type Ad Type C Type C, shallow & rounded Ty pe B Type B with large volume Cou ld not maintain a hermetic seal}}Left Ear:{{Type A* Type As Type Ad Type C Type C, shallow & rounded Ty pe B Type B with large volume Cou ld not maintain a hermetic seal}} Health Concerns Section Related Observation LastModified by Organization Detai ls LastModified Time None Recorded Concern Status LastModified by Organization Details LastModified Time None Recorded Advance Directives Directive None Recorded Payers Encounter Date Sequence Insurance Name Policy Number Policy Acosta Covered Member ID Acosta Member ID Guarantor Name 12/13/2023 2 [place] [employer] Arpita Calix [id number] Arpita Mora Calix 12/13/2023 3 [place] [facility] Arpita Calix [id number] Arpita Calix Notes Date Note Type Note Provider Name and Address Organization Details Recorded Time 12/13/2023 text/html 53 yo F with hearing loss. Previously seen March 2020 with normal hearing. Recently out of the hospital for mental health concerns. Did have a fall. Has had several concussions. CT October 2022 at [facility] no acute pathology. Normal mastoids. SUDHAKAR HAM MD [address] [place] [address], [phone], [place] - [facility] 12/13/2023 15:06:11 OBGyn Episode No OBEpisode recorded.
--- OUTSIDE RECORDS SUMMARY | 2024-08-15 16:44 | XMS_ITS | Data Portability ---
Author Organization [facility], [place] [facility] - [facility] Address [address] [place] [address] Care Team Providers Care Acetylene Cutter Name Role Phone HIM CCA OTHER Assessment [...] fluid. Pt declines treatment and reassessment by [facility] medic, and says that she prefers to be evaluated in the ED. [email or web address] Not available 02/22/2024 21:25:54 Plan of Treatment Reminders Order Date Submit Date Provider Last Modified By Organization Details Last Modified Time Details Appointments None recorded. Lab BMP, serum or plasma 2023 024 [email or web address] [facility], [address] [place] [address], [phone], 21:27:51 hemoglobin + hematocrit, blood [email or web address], [address], 21:27:51 Referral None recorded. Procedures None recorded. Surgeries None recorded. Imaging electrocard iogram [email or web address], [address], 4 13:53:44 Medication Orders None recorded. Patient TargetsNo targets recorded. Patient InstructionsNo instructions recorded. Reason for Referral None Reported. Results Created Date Observation Date Name Description Value Unit Range Abnormal Flag Note LastModifiedBy Organization Detail LastModifiedTime 02/22/20 24 02/22/2024 rachael krishnan am No observ ation record ed. [facility] [address] [place] [address], [phone], 02/22/2024 21:54:04 Result Notes None recorded. Procedures Surgical History None recorded. Imaging Results Imaging Date Name Status LastModified by Organization Details LastModified Time 02/22/2024 electrocardiogram completed [facility] [address] [place] [address], [phone], 02/22/2024 21:54:04 Procedure Notes None recorded. Medical Equipment None Reported. Allergies Allergen ID Allergen Name Allergen Category Reaction Reaction Severity Criticality Documentation Date Start Date Code Code System Note Provider Name and Address Organization Details Recorded Time 8941 Bactrim medicatio n Not available Not available Not available 05/19/2024 14600 9 RxNorm Not Available [facility] - production [...] carbamazepine ER 300 mg capsule,extende d release [id number] active Not Available Not Available N ot [...] Address Organization Details Last Updated DateTime 4 640390. 632 g 97.5 [degF] 20 /min 157.48 cm 96 /min 98 % 98 % 164 mm[Hg] 113 mm[Hg] Not Available [facility] - production 4 19:31:52 Date Recorded Body weight Body temperature Respiratory rate Heart rate Oxygen saturation Oxygen saturation in Arterial blood by Pulse oximetry Body height Systolic blood pressure Diastolic blood pressure Provider Name and Address Organization Details Last Updated DateTime 4 696836. 592 g 98.2 [degF] 22 /min 108 /min 97 % 97 % 170.18 cm 123 mm[Hg] 86 mm[Hg] Not Available [facility] 4 20:42:42 Social History None recorded. Functional Status None recorded. Mental Status None recorded. Family History Nothing Reported. Medical History No medical history recorded. Gynecological HistoryNo gynecological history recorded. Obstetrics History GPAL:G 0 P 0 0 0 0 Past Encounters Encounter ID Performer Location Encounter Start Date Encounter Closed Date Diagnosis/Indication Diagnosis SNOMED-CT Code Diagnosis ICD10 Code Diagnosis Note [id number] Gloria Sheehan MD [facility] [address] [place] [address] 02/17/2024 19:31:50 02/18/2024 14:46:56 Dyspnea 067531627 R06.00 53 year old female with mental illness and COPD being evaluated for persistent shortness of breath over the last few weeks. Patient presented to the ER twice the same, recently admitted for a psychiatri c problem and treated for respirator y illness with antibiotic s, prednisone and lasix with little improvemen t. Patient has an inhaler/ne bulizer regimen that she has not been compliant with. Exam notable for normal vital signs, RR 20, clear. lungs, no peripheral edema. POC COVID neg. Presentati on consistent with persistent dyspnea in the setting of underlying asthma, possibly due to prolonged recovery from a viral illness and noncomplia nce with home inhaler/ne bulizer regimen, compounded by underlying anxiety. Patient encouraged to take her home nebulizer treatment, after which she reports not feeling any better, therefore made the decision to present to the ER. I have reviewed and agree with the assessment and plan as documented by the cardiology technician. I provided real-time medical direction for this encounter and was immediatel y available to provide additional phone-base d assistance as needed. We discussed the diagnostic uncertaint y of home visits and associated risks. We discussed the need to seek care urgently/e mergently in the setting of any new or worsening symptoms. [id number] Gary Alexander MD [facility] [address] [place] [phone] 02/22/2024 20:42:28 02/23/2024 22:19:18 Weakness present [id number] M62.81 pt requesting transfer to ED for further eval. no acute electrolyt e abnormalit y, vs notable for a slight tachycardi a. [facility] medic will facilitate EMS transport. Health Concerns Section Related Observation LastModified by Organization Detai ls LastModified Time None Recorded Concern Status LastModified by Organization Details LastModified Time None Recorded Advance Directives Directive None Recorded Payers Encounter Date Sequence Insurance Name Policy Number Policy Acosta Covered Member ID Acosta Member ID Guarantor Name 02/17/2024 1 [facility] - DOS ON OR AFTER 2022 - DUAL ELIGIBLE - RESIDENTIAL OPTIONS AND ONE CARE (MEDICARE REPLACEMENT/ADV ANTAGE - HMO) Arpita Calix [id number] Arpita Calix 02/22/2024 1 [facility] - DOS ON OR AFTER 2022 - DUAL ELIGIBLE - RESIDENTIAL OPTIONS AND ONE CARE (MEDICARE REPLACEMENT/ADV ANTAGE - HMO) Arpita Calix [id number] Arpita Calix Notes Date Note Type Note Provider Name and Address Organization Details Recorded Time 02/17/2024 text/html [facility] Nurse Triage Notes (Zuri Kwan): Reason For Request: Pt reporting a hard time breathing>was told it was a viral infection at the ED>medically complex as the mbr states she has a brain injury>predominant symptoms are cough + SOBMbr states she uses [facility] in [place], [place] but is not sure which one [...] ...................... ...................... ...................... ...................... ...................... ...................... ......... Take Off Man Note From Ritesh Gerard: [facility] visit for female patient. Pt complains of [...] treatment and felt no better. [place] [facility] [place]ehan who ordered COVID swab which came back negative. Pt ultimately decided to go to ED. 911 called with [facility] unit arriving for transport. Report given to transporting medic. ...................... ...................... ...................... ...................... ...................... ...................... ......... Disposition: Fulfilled Gloria Sheehan MD [address] [place] [address],[address], [place], [address], [facility] - [facility] 02/17/2024 21:03:45 02/22/2024 text/html [facility] Nurse Triage Notes (Kristina Cartagena): Reason For [...] adhesive, naprosyn and valium. [facility]. Member presented to the ED and was started on Doxycycline for supposed PNA. Member calling in today with no change in symptoms. Member states, I am not well , she is having diarrhea, nausea, cough and LOPEZ, +weakness and inability to eat. She is unsure if she has a fever, denies chills. Member would like to be evaluated. Take Off Man Organization Information for [employer] Legal Name: [facility] Address: [address] [place] [address], CHARISSA Garcia [address], Can Inspector: Benitez Hernandez MD CLIA No.: [id number] Take Off Man POC Test Results from [facility] (20:37:37) pH: 7.468 pH units pCO2: 38.6 mmHg pO2: 38.0 mmHg Na: 136 mmol/L K: 3.7 mmol/L iCa: 1.06 mmol/L Cl: 98 mmol/L TCO2: 27.9 mEq/L Hct: 37 % Hb: 12.4 g/dL Glu: 213 mg/dL Lac: 2.39 mmol/L Cr: 0.47 mg/dL BUN: 11 mg/dL A Attachments uploaded as part of this test result can be found under Documents section. Gary Alexander MD [address] [place] [address],[address], [place], [phone], [employer] 02/22/2024 21:28:08 OBGyn Episode No OBEpisode recorded.
--- NOTE | 2024-08-15 17:39 | ED_ITS ---
HPI - Psych General Chief Complaint: Psychiatric Symptoms Stated Complaint: seizure Time Seen by Provider: 08/15/24 16:25 Source: patient Mode of arrival: EMS Limitations: no limitations History of Present Illness ED Provider: Dr. Sven Bazan HPI Narrative: 54-year-old female with a history of diabetes mellitus, asthma, sleep apnea, GERD, bipolar disorder who presents emergency department for evaluation of pseudoseizures and suicidal ideation with self cutting to the left forearm. Patient has a history of pseudo-seizure and she believes at her episode today were different than her usual pseudoseizures presentation. She states she usually has an aura of not feeling well prior to her seizure seizures and she did not have this aura. She states she was watching wrestling when she passed out at least 3 times. She was no memory of what happened. She states that she has been feeling suicidal for about 2 weeks. She states that she did cut her left forearm multiple times with a knife today. She states that if she leaves the hospital today she will definitely kill herself. Patient told me that she had 2 recent admissions to [facility] psychiatric service and was released on Saturday08/13/2024. She states she has multiple life stressors that are making her feel suicidal. Related Data Home Medications ?Medication ?Instructions ?Recorded ?Confirmed umeclidinium 62.5 mcg/actuation 1 inh inhalation DAILY 08/01/21 08/16/24 blister powder for inhalation (Incruse Ellipta) cholecalciferol (vitamin D3) 25 25 mcg PO DAILY 12/19/22 08/16/24 mcg (1,000 unit) tablet docusate sodium 100 mg capsule 200 mg PO DAILY 12/19/22 08/16/24 gabapentin 400 mg capsule 400 mg PO TID 12/19/22 08/16/24 metformin 500 mg tablet,extended 1,000 mg PO DAILY 12/19/22 08/16/24 release 24 hr pantoprazole 40 mg tablet,delayed 40 mg PO BID@0630,1630 12/19/22 08/16/24 release fluticasone propionate 50 1 spray intranasal BID 12/20/22 08/16/24 mcg/actuation nasal spray,suspension ferrous sulfate 325 mg (65 mg 325 mg PO BEDTIME 03/10/24 08/16/24 iron) tablet (FeroSul) hydroxyzine pamoate 100 mg capsule 100 mg PO BEDTIME 03/10/24 08/16/24 hydroxyzine pamoate 50 mg capsule 100 mg PO Q4H PRN Anxiety 03/10/24 08/16/24 sitagliptin phosphate 100 mg 100 mg PO DAILY 03/10/24 08/16/24 tablet (Januvia) Lactobacillus rhamnosus GG 15 2 cap PO DAILY 08/16/24 08/16/24 billion cell sprinkle capsule (Culturelle) albuterol sulfate 90 mcg/actuation 2 puff inhalation Q6H PRN Wheezing 08/16/24 08/16/24 aerosol inhaler (Ventolin HFA) ammonium lactate 12 % topical cream 1 appl topical BEDTIME 08/16/24 08/16/24 budesonide-formoterol HFA 160 2 puff inhalation BID 08/16/24 08/16/24 mcg-4.5 mcg/actuation aerosol inhaler carbamazepine 200 mg 600 mg PO BID 08/16/24 08/16/24 tablet,extended release,12 hr cyclobenzaprine 7.5 mg tablet 7.5 mg PO BEDTIME 08/16/24 08/16/24 dicyclomine 10 mg capsule 10 mg PO Q6H PRN Abdominal Pain 08/16/24 08/16/24 famotidine 40 mg tablet 40 mg PO BID 08/16/24 08/16/24 insulin glargine 100 unit/mL (3 10 unit subcut BEDTIME 08/16/24 08/16/24 mL) subcutaneous pen (Lantus Solostar U-100 Insulin) ipratropium 0.5 mg-albuterol 3 mg 3 ml inhalation BID PRN Shortness 08/16/24 08/16/24 (2.5 mg base)/3 mL nebulization Of Breath soln latanoprost 0.005 % eye drops 2 drp ophthalmic (eye) BEDTIME 08/16/24 08/16/24 lidocaine 4 % topical patch 1 patch topical DAILY 08/16/24 08/16/24 (Lidocaine Pain Relief) prazosin 2 mg capsule 2 mg PO BEDTIME 08/16/24 08/16/24 quetiapine 200 mg tablet 200 mg PO BEDTIME 08/16/24 08/16/24 quetiapine 50 mg tablet 50 mg PO Q6H PRN Anxiety 08/16/24 08/16/24 Previous Rx's ?Medication ?Instructions ?Recorded multivitamin (Daily-Emil tablet) 1 tab PO DAILY 30 days #30 tabs 08/15/21 trazodone 100 mg tablet 200 mg (2 x 100 mg) PO BEDTIME #0 01/24/22 tabs prazosin 5 mg capsule 5 mg PO BEDTIME 30 days #30 caps 01/01/23 ibuprofen 600 mg tablet 600 mg PO TID PRN fever or pain 03/24/24 #14 tabs loperamide 2 mg tablet (Imodium 2 mg PO Q6H PRN loose stool #10 06/14/24 A-D) tabs Allergies Allergy/AdvReac Type Severity Reaction Status Date / Time sulfamethoxazole Allergy Intermediate Rash Verified 08/15/24 16:36 [From Bactrim] trimethoprim [From Bactrim] Allergy Intermediate Rash Verified 08/15/24 16:36 adhesive tape Allergy Rash Verified 08/15/24 16:36 Navarro And Derivatives Allergy Gastrointestinal Verified 08/15/24 16:36 Upset Benzodiazepines AdvReac Intermediate Hives Verified 08/15/24 16:36 diazepam [From Valium] AdvReac Intermediate Irritable Verified 08/15/24 16:36 Review of Systems 2 Review of Systems: Yes all other systems are reviewed and are negative [facility] Past Medical History [facility] Narrative: Social history: The patient does live in a nursing home. She denies tobacco, alcohol and drug use Medical History GERD (gastroesophageal reflux disease) Sleep apnea Asthma Hearing loss Diabetes mellitus, type 2 Social History Social History Household Members: Other Household Members Other:: 2 Housing: Other Housing Other:: [facility] Do you presently have visiting nurse or other home services: Yes Alcohol intake: current Patient Tobacco Use Status: Never used Tobacco Smoked in Last 30 Days: Yes e-Cigarette/Vaping Use: Never Used Use of substances other than those prescribed or required for medical reasons: No Advance Directives: No Advance Directives Information Provided: No Do you have a plan to hurt others: No Plan Patient : No service: No Sexual orientation: Straight/Heterosexual Physical Exam 2 Vital Signs: Vital Signs: Last Vital Signs Temp 98.7 F 01/26/25 22:07 Pulse 76 08/16/24 22:07 Resp 16 08/16/24 22:07 BP 156/91 H 08/16/24 22:07 Pulse Ox 96 08/16/24 22:07 O2 Del Method Room Air 08/16/24 22:07 BMI result Body Mass Index 47.6 Vital signs revealed an elevated blood pressure of 169/88 Exam: General: Awake, alert in no distress Head: Normocephalic, atraumatic EENT: PERRL, Lids normal, sclera normal, conjunctiva normal, nose normal , ears normal, throat without erythema or exudates Neck: Supple, no adenopathy Lung: breath sounds symmetric, no wheezing, rales or rhonchi Chest: symmetric movement, nontender Heart: regular rate and rhythm, normal S1, S2 no murmurs or rubs Abdomen: soft, non-tender, nondistended, normal bowel sounds Back: no vertebral tenderness, no CVAT Extremities: no deformities, moves all extremities symmetrically patient has 5 superficial lacerations to her left forearm which are consistent with prior cutting herself with a knife Neuro: Awake, alert, oriented, normal speech, cranial nerves intact, moves all extremities symmetrically Psych: Pleasant, cooperative Medications Administered Generic Name Dose Route Start Last Admin Trade Name Freq PRN Reason Stop Dose Admin Famotidine 40 mg 08/17/24 01:15 08/17/24 01:35 Famotidine 20 Mg Tablet PO 40 mg BID DORCAS Administration Gabapentin 400 mg 08/17/24 01:15 08/17/24 01:35 Gabapentin 400 Mg Capsule PO 400 mg TID DORCAS Administration Insulin Glargine 10 unit 08/16/24 21:00 08/16/24 21:06 Insulin Glargine,Hum.Rec.Anlog 100 Unit/Ml 10 Ml Vial SUBCUT 10 unit BEDTIME DORCAS Administration Trazodone HCl 200 mg 08/17/24 01:15 08/17/24 01:35 Trazodone Hcl 100 Mg Tablet PO 200 mg BEDTIME DORCAS Administration Discontinued Medications Generic Name Dose Route Start Last Admin Trade Name Freq PRN Reason Stop Dose Admin Carbamazepine 600 mg 08/15/24 23:43 08/16/24 00:42 Carbamazepine Er 200 Mg Tab.Er.12h PO 08/15/24 23:44 600 mg ONCE ONE Administration Hydroxyzine HCl 100 mg 08/15/24 23:43 08/16/24 00:42 Hydroxyzine Hcl 50 Mg Tablet PO 08/15/24 23:44 100 mg ONCE ONE Administration Lorazepam 2 mg 08/15/24 17:38 08/15/24 18:46 Lorazepam 1 Mg Tablet PO 08/15/24 17:39 2 mg ONCE STA Administration Quetiapine Fumarate 200 mg 08/15/24 23:43 08/16/24 00:42 Quetiapine Fumarate 200 Mg Tablet PO 08/15/24 23:44 200 mg ONCE ONE Administration Trazodone HCl 200 mg 08/15/24 23:43 08/16/24 00:41 Trazodone Hcl 100 Mg Tablet PO 08/15/24 23:44 200 mg ONCE ONE Administration Medical Decision Making Medical Decision Making MDM Narrative: 54-year-old female with a history of diabetes mellitus, asthma, sleep apnea, GERD, bipolar disorder who presents emergency department for evaluation of pseudoseizures x3 , suicidal ideation with a plan to cut herself with a knife for smashed her head, with self cutting to the left forearm done earlier today. Patient states she was several social stressors including having difficulty with 1 of her housemates in her nursing home. Vital signs revealed an elevated blood pressure otherwise unremarkable. Physical examination was unremarkable except for self-inflicted superficial lacerations to her left forearm. Differential diagnosis: ?Includes but is not limited to suicidal ideation, depression, anxiety, electrolyte abnormalities, anemia, intoxication, drug use Course: 17:49 Laboratory evaluation was ordered. The patient was given Ativan 2 mg orally for anxiety and her pseudo seizures. 21:06 Start physician observation My independent interpretation patient's laboratory evaluation as follows: CBC was unremarkable. CMP revealed an elevated glucose of 133 otherwise unremarkable. Urine tox was negative. Ethanol was below detectable limits. The patient was medically cleared for your team evaluation. Patient will remain in the emergency department until disposition can be determined or until patient's symptoms improve over time. Admission/Observation Consideration of admission/observation: Escalation of care including admission/observation considered (Yes) Lab Data 08/15/24 17:57 08/15/24 17:57 Labs: Lab Results 08/15/24 08/15/24 08/15/24 Range/Units 17:57 17:58 19:39 WBC 11.2 H (4.8-10.8) X10*3/uL RBC 4.42 (4.20-5.50) X10*6/uL Hgb 12.5 (12.0-16.0) g/dl Hct 37.4 (37.0-47.0) % MCV 84.6 (80.0-98.0) fL MCH 28.3 (27.0-33.0) pg MCHC 33.4 (31.0-35.0) g/dl RDW 14.6 (11.0-16.0) % Plt Count 213 (160-400) X10*3/uL MPV 8.7 L (9.4-12.3) fL Immature Gran % (Auto) 1.4 H (0.0-0.4) % Neut % (Auto) 74.1 H (45-73) % Lymph % (Auto) 17.0 L (20-40) % [place] % (Auto) 5.3 (2-11) % Eos % (Auto) 1.7 (0-4) % Baso % (Auto) 0.5 (0-2) % Lymph # (Auto) 1.9 (1.2-4.9) X10*3/uL [place] # (Auto) 0.6 (0.1-1.2) X10*3/uL Eos # (Auto) 0.2 (0.0-0.4) X10*3/uL Baso # (Auto) 0.1 (0.0-0.2) X10*3/uL Abs Immat Gran (auto) 0.16 H (0.00-0.03) X10*3/uL Absolute Neuts (auto) 8.3 (2.0-8.3) x10*3/uL Absolute Nucleated RBC 0.000 (0.0-0.012) X10*3/uL Nucleated RBC % (auto) 0.0 (0.0-0.2) /100WBC Sodium 141 (135-145) mmol/L Potassium 3.5 (3.3-5.1) mmol/L Chloride 107 (96-108) mmol/L Carbon Dioxide 27 (22-29) mmol/L Anion Gap 11 L (12-20) BUN 17 H (9-16) mg/dL Creatinine 0.58 (0.5-1.4) mg/dL Estim Creat Clear Calc 136.9 Estimated GFR > 60 POC Glucose 129 H (60-115) mg/dL Random Glucose 133 H (60-115) mg/dL Calcium 8.4 D (8.4-10.2) mg/dL Total Bilirubin 0.1 (0.0-1.0) mg/dL AST 18 (5-31) U/L ALT 16 (0-31) U/L Alkaline Phosphatase 103 (39-117) U/L Total Protein 7.0 (6.5-8.0) g/dL Albumin 3.8 (3.5-5.0) g/dL Urine Opiates Screen Not Detected (Not Detect) Ur Buprenorphine Scrn Not Detected (Not Detect) ng/mL Ur Oxycodone Screen Not Detected (Not Detect) ng/mL Urine Methadone Screen Not Detected (Not Detect) ng/mL Urine Fentanyl Screen Not Detected (Not Detect) Ur Barbiturates Screen Not Detected (Not Detect) Carbamazepine (5.0-12.0) mcg/mL Ur Phencyclidine Scrn Not Detected (Not Detect) Ur Amphetamines Screen Not Detected (Not Detect) U Benzodiazepines Scrn Not Detected (Not Detect) Urine Cocaine Screen Not Detected (Not Detect) U Marijuana (THC) Screen Not Detected (Not Detect) Ethyl Alcohol < 10 mg/dL COVID-19 ([facility]) Negative (Negative) COVID-19 Clin Com See Note 08/16/24 08/16/24 08/16/24 Range/Units 01:28 07:23 20:55 WBC (4.8-10.8) X10*3/uL RBC (4.20-5.50) X10*6/uL Hgb (12.0-16.0) g/dl Hct (37.0-47.0) % MCV (80.0-98.0) fL MCH (27.0-33.0) pg MCHC (31.0-35.0) g/dl RDW (11.0-16.0) % Plt Count (160-400) X10*3/uL MPV (9.4-12.3) fL Immature Gran % (Auto) (0.0-0.4) % Neut % (Auto) (45-73) % Lymph % (Auto) (20-40) % [place] % (Auto) (2-11) % Eos % (Auto) (0-4) % Baso % (Auto) (0-2) % Lymph # (Auto) (1.2-4.9) X10*3/uL [place] # (Auto) (0.1-1.2) X10*3/uL Eos # (Auto) (0.0-0.4) X10*3/uL Baso # (Auto) (0.0-0.2) X10*3/uL Abs Immat Gran (auto) (0.00-0.03) X10*3/uL Absolute Neuts (auto) (2.0-8.3) x10*3/uL Absolute Nucleated RBC (0.0-0.012) X10*3/uL Nucleated RBC % (auto) (0.0-0.2) /100WBC Sodium (135-145) mmol/L Potassium (3.3-5.1) mmol/L Chloride (96-108) mmol/L Carbon Dioxide (22-29) mmol/L Anion Gap (12-20) BUN (9-16) mg/dL Creatinine (0.5-1.4) mg/dL Estim Creat Clear Calc Estimated GFR POC Glucose 143 H 120 H (60-115) mg/dL Random Glucose (60-115) mg/dL Calcium (8.4-10.2) mg/dL Total Bilirubin (0.0-1.0) mg/dL AST (5-31) U/L ALT (0-31) U/L Alkaline Phosphatase (39-117) U/L Total Protein (6.5-8.0) g/dL Albumin (3.5-5.0) g/dL Urine Opiates Screen (Not Detect) Ur Buprenorphine Scrn (Not Detect) ng/mL Ur Oxycodone Screen (Not Detect) ng/mL Urine Methadone Screen (Not Detect) ng/mL Urine Fentanyl Screen (Not Detect) Ur Barbiturates Screen (Not Detect) Carbamazepine 9.4 (5.0-12.0) mcg/mL Ur Phencyclidine Scrn (Not Detect) Ur Amphetamines Screen (Not Detect) U Benzodiazepines Scrn (Not Detect) Urine Cocaine Screen (Not Detect) U Marijuana (THC) Screen (Not Detect) Ethyl Alcohol mg/dL COVID-19 ([facility]) (Negative) COVID-19 Clin Com Discharge Plan Discharge Clinical Impression: Suicidal ideations, Depression, Psychogenic nonepileptic seizure Patient Disposition: Still a Patient Prescriptions: No Action trazodone 100 mg Tablet 200 mg PO BEDTIME Qty: 0 0RF Incruse Ellipta 62.5 mcg/actuation Blister With Device 1 inh INHALATION DAILY multivitamin [Daily-Emil] Tablet 1 tab PO DAILY 30 Days Qty: 30 0RF ibuprofen 600 mg tablet 600 mg PO TID PRN (Reason: fever or pain) Qty: 14 0RF latanoprost 0.005 % drops 2 drp ophthalmic (eye) BEDTIME famotidine 40 mg tablet 40 mg PO BID quetiapine 200 mg tablet 200 mg PO BEDTIME carbamazepine 200 mg tablet extended release 12 hr 600 mg PO BID insulin glargine [Lantus Solostar U-100 Insulin] 100 unit/mL (3 mL) insulin pen 10 unit subcut BEDTIME ipratropium-albuterol 0.5 mg-3 mg(2.5 mg base)/3 mL solution for nebulization 3 ml inhalation BID PRN (Reason: Shortness Of Breath) Culturelle 15 billion cell capsule, sprinkle 2 cap PO DAILY lidocaine [Lidocaine Pain Relief] 4 % Adhesive Patch,Medicated 1 patch TOPICAL DAILY Rx Instructions: to back ammonium lactate 12 % Cream 1 appl TOPICAL BEDTIME Rx Instructions: to feet albuterol sulfate [Ventolin HFA] 90 mcg/actuation Hfa Aerosol Inhaler 2 puff INHALATION Q6H PRN (Reason: Wheezing) dicyclomine 10 mg Capsule 10 mg PO Q6H PRN (Reason: Abdominal Pain) prazosin 2 mg capsule 2 mg PO BEDTIME quetiapine 50 mg tablet 50 mg PO Q6H PRN (Reason: Anxiety) budesonide-formoterol 160-4.5 mcg/actuation HFA aerosol inhaler 2 puff INHALATION BID cyclobenzaprine 7.5 mg tablet 7.5 mg PO BEDTIME gabapentin 400 mg capsule 400 mg PO TID metformin 500 mg tablet extended release 24 hr 1,000 mg PO DAILY cholecalciferol (vitamin D3) 25 mcg (1,000 unit) tablet 25 mcg PO DAILY pantoprazole 40 mg tablet,delayed release (DR/EC) 40 mg PO BID@0630,1630 docusate sodium 100 mg capsule 200 mg PO DAILY fluticasone propionate 50 mcg/actuation spray,suspension 1 spray intranasal BID prazosin 5 mg capsule 5 mg PO BEDTIME 30 Days Qty: 30 0RF ferrous sulfate [FeroSul] 325 mg (65 mg iron) tablet 325 mg PO BEDTIME Januvia 100 mg tablet 100 mg PO DAILY hydroxyzine pamoate 100 mg capsule 100 mg PO BEDTIME hydroxyzine pamoate 50 mg capsule 100 mg PO Q4H PRN (Reason: Anxiety) loperamide [Imodium A-D] 2 mg tablet 2 mg PO Q6H PRN (Reason: loose stool) Qty: 10 0RF Interventions: Grimes-Suicide Risk Severity Scale Last Done: 08/16/24 00:51 Print Language: Azeri
[2024-08-15 18:04] LABS: MANUAL DIFF FLAG NO
[2024-08-15 18:05] LABS: Basophils Absolute Auto 0.1 X10*3/uL (0.0-0.2); Basophils Percent Auto 0.5 % (0-2); Eosinophils Absolute Auto 0.2 X10*3/uL (0.0-0.4); Eosinophils Percent Auto 1.7 % (0-4); Hematocrit 37.4 % (37.0-47.0); Hemoglobin 12.5 g/dl (12.0-16.0); Imm Gran Abs Auto 0.16 X10*3/uL (0.00-0.03); Imm Gran Pct Auto 1.4 % (0.0-0.4); Lymphocytes Absolute Auto 1.9 X10*3/uL (1.2-4.9); Mean Corpuscular HGB Conc 33.4 g/dl (31.0-35.0); Mean Corpuscular Hemoglobin 28.3 pg (27.0-33.0); Mean Corpuscular Volume 84.6 fL (80.0-98.0); Mean Platelet Volume 8.7 fL (9.4-12.3); Monocytes Absolute Auto 0.6 X10*3/uL (0.1-1.2); Monocytes Percent Auto 5.3 % (2-11); Neutrophils Absolute Auto 8.3 x10*3/uL (2.0-8.3); Neutrophils Percent Auto 74.1 % (45-73); Platelet Count 213 X10*3/uL (160-400); Red Blood Count 4.42 X10*6/uL (4.20-5.50); Red Cell Distribution Width 14.6 % (11.0-16.0); White Blood Count 11.2 X10*3/uL (4.8-10.8)
[2024-08-15 18:15] LABS: Amphetamine Screen Urine Not Detected (Not Detect); Barbiturates, Urine Not Detected (Not Detect); Benzodiazepines Screen Urine Not Detected (Not Detect); Buprenorphine Scr Not Detected (Not Detect); Cannabinoid Screen Urine Not Detected (Not Detect); Cocaine Screen Urine Not Detected (Not Detect); Fentanyl, urine Not Detected (Not Detect); Methadone Screen, Urine Not Detected (Not Detect); Opiate Screen Urine Not Detected (Not Detect); Oxycodone Screen Urine Not Detected (Not Detect); Phencyclidine Screen Urine Not Detected (Not Detect)
[2024-08-15 18:18] LABS: Alanine Aminotransferase 16 U/L (0-31); Albumin Level 3.8 g/dL (3.5-5.0); Alkaline Phosphatase 103 U/L (39-117); Anion Gap 11 (12-20); Aspartate Amino Transferase 18 U/L (5-31); Bilirubin Total 0.1 mg/dL (0.0-1.0); Blood Urea Nitrogen 17 mg/dL (9-16); Calcium 8.4 mg/dL (8.4-10.2); Carbon Dioxide 27 mmol/L (22-29); Chloride 107 mmol/L (96-108); Creatinine Clr Calc Pharmacy 136.9; Estimated Glomerular Filt Rate > 60; Ethanol < 10 mg/dL; Glucose Random 133 mg/dL (60-115); Potassium 3.5 mmol/L (3.3-5.1); Sodium 141 mmol/L (135-145)
[2024-08-15 18:24] LABS: COVID-19 Test Negative (Negative); IDNOW Serial# 55D5AD1C
[2024-08-15] MEDS: LORazepam 1 MG TABLET 2 MG PO (18:46)
--- NOTE | 2024-08-15 18:52 | PC.NURSE ---
called down to dining services to order patient meal and confirm they are aware of her food allergy of tomatoes and citrus. They stated aware and will bring up dinner tray.
[2024-08-15 19:56] LABS: Glucose, Whole Blood 129 mg/dL (60-115)
[2024-08-16] MEDS: traZODone HCL 100 MG TABLET 200 MG PO (00:41)
[2024-08-16] MEDS: hydrOXYzine HCL 50 MG TABLET 100 MG PO (00:42)
[2024-08-16] MEDS: carBAMazepine ER 200 MG TAB.ER.12H 600 MG PO (00:42)
[2024-08-16] MEDS: QUEtiapine Fumarate 200 MG TABLET PO (00:42)
[2024-08-16 00:46] VITALS: BP 168/92; PULSE 89; RESP 18; TEMP 36.6; O2SAT 98
[2024-08-16 01:51] LABS: Carbamazepine Tegretol 9.4 mcg/mL (5.0-12.0)
[2024-08-16 06:19] VITALS: BP 162/84; PULSE 98; RESP 18; TEMP 36.9; O2SAT 96
[2024-08-16 07:30] LABS: Glucose, Whole Blood 143 mg/dL (60-115)
--- NOTE | 2024-08-16 12:42 | PC.NURSE ---
Care Team at Pt bedside.
--- NOTE | 2024-08-16 15:21 | PHA.MEDREC ---
Addendum entered by Hortencia James keshav 08/16/24 16:17: List faxed from [facility] Original Note: Pharmacy Consult ? Medication Reconciliation Pharmacy has completed the medication reconciliation. Spoke to pt to confirm meds.
[2024-08-16 16:02] VITALS: BP 145/86; PULSE 78; RESP 18; TEMP 36.4; O2SAT 95
[2024-08-16 21:00] LABS: Glucose, Whole Blood 120 mg/dL (60-115)
[2024-08-16] MEDS: Insulin Glargine,Hum.rec.anlog 100 UNIT/ML 10 ML VIAL 10 UNIT SUBCUT (21:06)
[2024-08-16 22:07] VITALS: BP 156/91; PULSE 76; RESP 16; TEMP 37.1; O2SAT 96
[2024-08-17] MEDS: Gabapentin 400 MG CAPSULE PO ×2 (01:35→09:48)
[2024-08-17] MEDS: traZODone HCL 100 MG TABLET 200 MG PO (01:35)
[2024-08-17] MEDS: Famotidine 20 MG TABLET 40 MG PO ×2 (01:35→09:48)
[2024-08-17 02:00] VITALS: BP 141/87; PULSE 80; RESP 18; O2SAT 98
[2024-08-17] MEDS: hydrOXYzine HCL 50 MG TABLET 100 MG PO ×2 (02:03→09:47)
[2024-08-17] MEDS: Cyclobenzaprine HCl 5 MG TABLET PO (02:04)
[2024-08-17] MEDS: Ferrous Sulfate 324 MG TABLET.DR PO (02:05)
[2024-08-17] MEDS: carBAMazepine ER 200 MG TAB.ER.12H 600 MG PO ×2 (02:05→09:48)
[2024-08-17 06:25] VITALS: BP 143/86; PULSE 80; RESP 16; TEMP 36.9; O2SAT 97
[2024-08-17] MEDS: Omeprazole 20 MG CAPSULE.DR PO (06:28)
[2024-08-17] MEDS: Dicyclomine HCl 10 MG CAPSULE PO (06:28)
[2024-08-17] MEDS: Tiotropium Bromide 2.5 mcg 1 PUFF/2.5 MCG MIST.INHAL 2 PUFF INHALE (08:44)
[2024-08-17] MEDS: Fluticasone/Vilanterol 200/25 BLST.W.DEV 1 PUFF INHALE (08:44)
[2024-08-17 08:47] VITALS: PULSE 108; RESP 18; O2SAT 98
--- NOTE | 2024-08-17 09:31 | PC.NURSE ---
CARE team at bedside speaking with pt
[2024-08-17] MEDS: QUEtiapine Fumarate 50 MG TABLET PO (09:48)
[2024-08-17] MEDS: SITagliptin Phosphate 100 MG TABLET PO (09:48)
[2024-08-17] MEDS: Docusate Sodium 100 MG CAPSULE 200 MG PO (09:48)
[2024-08-17] MEDS: Fluticasone Propionate Nasal 16 GM SPRAY NOSTRIL-B (09:49)
--- NOTE | 2024-08-17 10:03 | MHC.CARE ---
Patient reassessed by the CARE Team, she does not require an inpatient psychiatric admission at this time. Program staff will pick her up at 2pm, unable to come earlier. ED provider, Dr. Nicole updated.
[2024-08-17 14:18] VITALS: BP 143/86; PULSE 108; RESP 18; TEMP 36.9; O2SAT 97
== END 2024-08-17 14:19 | disposition home or self-care (01) ==
PROVIDERS: Emergency Provider Emergency Medicine Emergency Medical Services; PCP Physician Assistant
DX: F31.9 Bipolar disorder, unspecified (principal); R45.851 Suicidal ideations; F41.9 Anxiety disorder, unspecified; R56.9 Unspecified convulsions; E11.9 Type 2 diabetes mellitus without complications; J45.909 Unspecified asthma, uncomplicated; Z72.89 Other problems related to lifestyle; Z59.2 Discord with neighbors, lodgers and landlord; Z79.84 Long term (current) use of oral hypoglycemic drugs; Z79.899 Other long term (current) drug therapy; Z79.4 Long term (current) use of insulin; Z11.52 Encounter for screening for COVID-19
CPT/HCPCS: 36415; 80053; 80156; 80307; 82947; 85025; 87635; 94640; 99285; S9485

== ENCOUNTER 2024-10-28 19:58 | Emergency (ER) | payer MEDICARE, MEDICAID, SELFPAY ==
--- NOTE | ~2024-10-28 | CT_ITS ---
CLINICAL HISTORY: LLQ pain and tenderness CT abdomen and pelvis with contrast Comparison: CT/SR - CT ABDOMEN PELVIS WO IV CON - 06/14/24 18:52 EST Findings: No consolidation or effusion. Hepatomegaly with diffuse fatty infiltration. The spleen is normal in size. Unchanged 4.9 cm right renal cyst in the superior pole. Adrenal glands are normal. Subcentimeter low-attenuation lesion in the left renal cortex, likely renal cyst. Pancreas, gallbladder are unremarkable. No retroperitoneal lymphadenopathy. No bowel obstruction, pneumoperitoneum, or pneumatosis. No bowel wall thickening. The appendix is absent. Uterus and adnexa are unremarkable. Dextroscoliosis of the lower thoracic spine. IMPRESSION: No acute findings. Hepatomegaly with diffuse fatty infiltration. This document has been electronically signed by: Elio Suarez MD on 10/29/2024 01:18:47
[2024-10-28 20:08] VITALS: BP 152/90; PULSE 78
[2024-10-28 20:10] VITALS: BP 158/84; PULSE 96; RESP 17; TEMP 36.2; O2SAT 95
[2024-10-28 20:16] VITALS: BMI 46.4
--- OUTSIDE RECORDS SUMMARY | 2024-10-28 20:28 | XMS_ITS | Data Portability ---
Author Organization [place] - [facility], Allergy Address [address] [address] Assessment No assessment recorded. Plan of Treatment [...] Details Recorded Time Otalgia of left ear 3026105618 Active 2018 Otalgia, left ear; Note: Date Diagnosed : 09/18/2018 11:32 AM (H92.02) Not Available [facility] 4 02:50:02 Sensorine ural hearing loss of bilateral ears 320207111 Active 2018 Sensorine ural hearing loss, bilateral ; Note: Date Diagnosed : 09/18/2018 12:33 PM (H90.3) Not Available [facility] 4 02:50:02 Pain of left temporoma ndibular joint [id number] 890911 Active 2018 Arthralgi a of left temporoma ndibular joint; Note: Date Diagnosed : 10/02/2018 4:27 PM (M26.622) Not Available [facility] hospital 4 02:50:00 Problem Notes None recorded. Procedures Surgical History Date Name Laterality Status Provider Name and Address Organization Details Recorded Time 12/13/19 Comp Audio with Tymps (07315 & 34976) completed JAQUELIN MOSES, [address], [address], [place] - [facility] 12/13/2023 14:23:06 Remove tonsils and adenoids completed Gaby Stahl [place] - [facility] 12/13/2023 13:45:09 Appendectomy completed Gaby Stahl [place] - [facility] 12/13/2023 13:45:16 procedure on brain completed Gaby Stahl [place] - [facility] 12/13/2023 13:45:24 Imaging Results Imaging Date [...] Name and Address Organization Details Recorded Time 866482 Product containin g benzodiaz epine (product) medicatio n other Not available Not available 12/03/2023 45582 007 SNOMED React ion: unkno wn, unspe cifie d;; Not Available [facility] 4 01:12:33 996851 Bactrim medicatio n other Not available Not available 12/03/2023 24642 9 RxNorm React ion: unkno wn, unspe cifie d;; Not Available [facility] 4 01:12:34 389055 Valium medicatio n other Not available Not available 12/03/2023 64549 2 RxNorm React ion: unkno wn, unspe cifie d;; Not Available [facility] 4 01:12:36 Medications Name Sig Start Date Stop Date Status Note LastModified by Organization Details LastModified Time hydroxyzi ne pamoate 100 mg capsule active Medicati on ID: 416025 B rand Name: hydroxyz ine pamoate Send [...] oral powder 2018 active Medicati on ID: 991181 B rand Name: Miralax Send Method: E-Prescr ibed Sub s Allowed: subs OK Medic ationGen ericName : Miralax Not Available Not Available Not Available clonidine HCl 0.1 mg tablet active Medicati on ID: 559203 B rand Name: clonidin e HCl Send [...] 1 mg capsule active Medicati on ID: 736616 B rand Name: prazosin Send Method: E-Prescr [...] 0.3 mg tablet active Medicati on ID: 619490 B rand Name: clonidin e HCl Send Method: E-Prescr ibed Sub s Allowed: subs OK Medic ationGen ericName : clonidin e HCl Not Available Not Available Not Available gabapenti n 400 mg capsule active Medicati on ID: 136314 B rand Name: gabapent in Send Method: [...] for inhalatio n active Medicati on ID: 513710 B rand Name: Advair Diskus S end Method: E-Prescr ibed Sub s Allowed: subs OK Medic ationGen ericName : Advair Diskus Not Available Not Available Not Available hydroxyzi ne HCl 50 mg tablet active Medicati on ID: 152009 B rand Name: hydroxyz ine HCl Send [...] disintegr ating tablet active Medicati on ID: 333786 B rand Name: ondanset edel Send Method: E-Prescr ibed Sub s Allowed: subs OK Medic ationGen ericName : ondanset edel Not Available Not Available Not Available carbamaze pine ER 400 mg tablet,ex tended release,1 2 hr active Not Available Not Available Not Available prazosin 5 mg capsule active Not Available Not Available Not Available trazodone 100 mg tablet active Medicati on ID: 684874 B rand Name: trazodon e Send Method: [...] % topical cream active Medicati on ID: 314422 B rand Name: clotrima zole-bet amethaso ne [...] mg tablet 2018 active Medicati on ID: 257870 D uration Value: 7 Brand Name: ibuprofe n Send Method: E-Prescr ibed Sub s Allowed: subs OK Medic ationGen ericName : ibuprofe n Not Available Not Available Not Available docusate sodium 100 mg capsule active Not Available Not Available Not Available omeprazol e 20 mg capsule,d elayed release 2018 active Medicati on ID: 753029 D uration Value: 28 Brand Name: omeprazo le Send Method: E-Prescr ibed Sub s Allowed: subs OK Medic ationGen ericName : omeprazo le Not Available Not Available Not Available Dairy-Aid 3,000 unit tablet active Not Available Not Available Not Available hydroxyzi ne HCl 25 mg tablet active Medicati on ID: 227441 B rand Name: hydroxyz ine HCl Send Method: E-Prescr ibed Sub s Allowed: subs OK Medic ationGen ericName : hydroxyz ine HCl Not Available Not Available Not Available ammonium lactate 12 % topical cream active Not Available Not Available Not Available Culturell e 10 billion cell capsule 2018 active Medicati on ID: 606649 B rand Name: Culturel le Send Method: E-Prescr ibed Sub s Allowed: subs OK Medic ationGen ericName : Culturel le Not Available Not Available Not Available piroxicam 10 mg capsule active Not Available Not Available Not Available mupirocin 2 % topical ointment active Not Available Not Available Not Available gabapenti n 100 mg capsule active Medicati on ID: 648778 B rand Name: gabapent in Send Method: E-Prescr ibed Sub s Allowed: subs OK Medic ationGen ericName : gabapent in Not Available Not Available Not Available ibuprofen 600 mg tablet 12/12 completed Medicati on ID: 502211 B rand Name: ibuprofe n Send Method: E-Prescr ibed Sub s Allowed: subs OK Medic ationGen ericName : ibuprofe n Medica tion ID: [id number] B rand Name: ibuprofe n Send Method: E-Prescr ibed Sub s Allowed: subs OK Medic ationGen ericName : ibuprofe n Not Available Not Available Not Available ferrous sulfate 325 mg (65 mg iron) tablet,de layed release 2018 active Medicati on ID: 632411 B rand Name: ferrous sulfate Send Method: E-Prescr ibed Sub s Allowed: subs OK Medic ationGen ericName : ferrous sulfate Not Available Not Available Not Available ketoconaz ole 2 % topical cream 2018 active Medicati on ID: 302044 D uration Value: 30 Brand Name: ketocona zole Sen d Method: E-Prescr ibed Sub s Allowed: subs OK Medic ationGen ericName : ketocona zole Not Available Not Available Not Available cefdinir 300 mg capsule 12/12 completed Medicati on ID: 191540 D uration Value: 7 Brand Name: cefdinir Send Method: E-Prescr ibed Sub s Allowed: subs OK Medic ationGen ericName : cefdinir Medicat ion ID: [id number] D uration Value: 7 Brand Name: cefdinir [...] 2 mg capsule active Medicati on ID: 283483 B rand Name: prazosin Send Method: E-Prescr [...] pine ER 100 mg capsule,e xtended release [id number] 2018 active Medicati on ID: [id number] D uration Value: 7 Brand Name: carbamaz epine Se nd Method: E-Prescr ibed Sub s Allowed: subs OK Medic ationGen ericName : carbamaz epine Not Available Not Available Not Available carbamaze pine ER 300 mg capsule,e xtended release [id number] 12/12 completed Not Available Not Available [...] HFA aerosol inhaler active Medicati on ID: 829490 B rand Name: Symbicor t Send Method: [...] mg tablet 2018 active Medicati on ID: 068907 B rand Name: Tussin DM Send Method: E-Prescr ibed Sub s Allowed: subs OK Medic ationGen ericName : Tussin DM Not Available Not Available Not Available Anoro Ellipta 62.5 mcg-25 mcg/actua tion powder for inhalatio n INHALE 1 PUFF DAILY active Not Available Not Available No t Available Incruse Ellipta 62.5 mcg/actua tion powder for inhalatio n active Medicati on ID: 630693 B rand Name: Incruse Ellipta Send Method: E-Prescr ibed Sub s Allowed: subs OK Medic ationGen ericName : Incruse Ellipta Not Available Not Available Not Available Spiriva Respimat 1.25 mcg/actua tion solution for inhalatio n active Medicati on ID: 874904 B rand Name: Spiriva Respimat Send Method: [...] History Nothing Reported. Medical History Condition Response Glaucoma Y Anxiety Y Sleep Disorder Y GERD/Reflux Y Gynecological HistoryNo gynecological history recorded. Obstetrics History GPAL:G 0 P 0 0 0 0 Past Encounters Encounter ID Performer Location Encounter Start Date Encounter Closed Date Diagnosis/Indication Diagnosis SNOMED-CT Code Diagnosis ICD10 Code Diagnosis Note [id number] SUDHAKAR HAM MD [facility] [place] [address] [place] [address] 12/13/2023 13:15:07 12/13/2023 16:04:41 Sensorineural hearing loss of bilateral ears [id number] H90.3 53-year-ol d female presents for hearing [...] ID Guarantor Name 12/13/2023 2 MEDICARE B-[place]: [employer] [facility] Arpita Calix [id number] Arpita Mora [employer] 12/13/2023 3 [place] [facility] Arpita Calix [id number] Arpita Calix Notes Date Note Type Note Provider Name and Address Organization Details Recorded Time 12/13/2023 text/html 53 yo F with hearing loss. Previously seen March 2020 with normal hearing. Recently out of the hospital for mental health concerns. Did have a fall. Has had several concussions. CT October 2022 at [facility] no acute pathology. Normal mastoids. SUDHAKAR HAM MD [address] [place] [address], [phone], [place] - [facility] 12/13/2023 15:06:11 OBGyn Episode No OBEpisode recorded.
--- OUTSIDE RECORDS SUMMARY | 2024-10-28 20:29 | XMS_ITS | Data Portability ---
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 [facility], and says that she prefers to be evaluated in the ED. [email or web address] Not available 02/22/2024 21:25:54 Plan of Treatment Reminders Order Date Submit Date Provider Last Modified By Organization Details Last Modified Time Details Appointments None recorded. Lab BMP, serum or plasma [email or web address], [address] 21:27:51 hemoglobin + hematocrit, blood 2023 [email or web address], [address] 21:27:51 Referral None recorded. Procedures None recorded. Surgeries None recorded. Imaging electrocard iogram [email or web address], [address] 13:53:44 Medication Orders None recorded. Patient TargetsNo targets recorded. Patient InstructionsNo instructions recorded. Reason for Referral None Reported. Results Created Date Observation Date Name Description Value Unit Range Abnormal Flag Note LastModifiedBy Organization Detail LastModifiedTime 02/22/20 24 02/22/2024 rachael [email or web address] am No observ ation record ed. [address], [address] 02/22/2024 21:54:04 Result Notes None recorded. Procedures Surgical History None recorded. Imaging Results Imaging Date Name Status LastModified by Organization Details LastModified Time 02/22/2024 electrocardiogram completed [address], [address] 02/22/2024 21:54:04 Procedure Notes None recorded. Medical Equipment None Reported. Allergies Allergen ID Allergen Name Allergen Category Reaction Reaction Severity Criticality Documentation Date Start Date Code Code System Note Provider Name and Address Organization Details Recorded Time 8941 Bactrim medicatio n Not available Not available Not available 05/19/2024 20752 9 RxNorm Not Available [facility] - production [...] carbamazepine ER 300 mg capsule,extende d release [id number] active Not Available Not Available N ot [...] Address Organization Details Last Updated DateTime 4 945337. 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 592 g 98.2 [degF] 22 /min 108 /min 97 % 97 % 170.18 cm 123 mm[Hg] 86 mm[Hg] Not Available [facility] 4 20:42:42 Social History None recorded. Functional Status None recorded. Mental Status None recorded. Family History Nothing Reported. Medical History No medical history recorded. Gynecological HistoryNo gynecological history recorded. 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 I provided real-time medical direction for this encounter and was immediatel y available to provide additional phone-base d assistance as needed. We discussed the diagnostic uncertaint y of home visits and associated risks. We discussed the need to seek care urgently/e mergently in the setting of any new or worsening symptoms. [id number] Gary Alexander MD [facility] - [facility] [address] [place] [address] 02/22/2024 20:42:28 02/23/2024 22:19:18 Weakness present [id number] M62.81 pt requesting transfer to ED for [...] Acosta Member ID Guarantor Name 02/17/2024 1 [facility] - DOS ON OR AFTER 2022 - DUAL ELIGIBLE - RETIREMENT OPTIONS AND ONE CARE (MEDICARE REPLACEMENT/ADV ANTAGE - HMO) Arpita Calix [id number] Arpita Calix 02/22/2024 1 [facility] - DOS ON OR AFTER 2022 - DUAL ELIGIBLE - RETIREMENT OPTIONS AND ONE CARE (MEDICARE REPLACEMENT/ADV ANTAGE - HMO) Arpita Calix [id number] Arpita Calix Notes Date Note Type Note Provider Name and Address Organization Details Recorded Time 02/17/2024 text/html [facility] Nurse Triage Notes (Zuri Kwan): Reason For Request: Pt reporting a hard time breathing>was told it was a viral infection at the ED>medically complex as the mbr states she has a brain injury>predominant symptoms are cough + SOBMbr states she uses [facility] in [place], [place] but is not sure which one [...] ...................... ...................... ...................... ...................... ...................... ...................... ......... Sports Marketing Coordinator Note From Ritesh Gerard[facility]. Pt complains of [...] treatment and felt no better. Consulted with [facility] Dr. Sheehan who ordered COVID swab which came back negative. Pt ultimately decided to go to ED. 911 called with [facility] arriving for transport. Report given to transporting medic. ...................... ...................... ...................... ...................... ...................... ...................... ......... Disposition: Fulfilled Gloria Sheehan MD [address] [place] [address],[address], [place], [phone], [facility] 02/17/2024 21:03:45 02/22/2024 text/html [facility] Nurse Triage [...] chills. Member would like to be evaluated. Sports Marketing Coordinator Organization Information for [employer] Legal Name: [facility] Transportation Address: [address] [place] [address], [place] [address], Search Engine Optimization Manager: Benitez Hernandez MD CLIA No.: [id number] Sports Marketing Coordinator POC Test Results from [facility], [facility] - ALS epoc (20:37:37) pH: 7.468 pH units pCO2: 38.6 mmHg pO2: 38.0 mmHg Na: 136 mmol/L K: 3.7 mmol/L iCa: 1.06 mmol/L Cl: 98 mmol/L TCO2: 27.9 mEq/L Hct: 37 % Hb: 12.4 g/dL Glu: 213 mg/dL Lac: 2.39 mmol/L Cr: 0.47 mg/dL BUN: 11 mg/dL A Attachments uploaded as part of this test result can be found under Documents section. Gary Alexander MD [address] [place] [address],[address], [place], [phone], [employer] 02/22/2024 21:28:08 OBGyn Episode No OBEpisode recorded.
[2024-10-28 20:35] VITALS: BMI 46.2
--- NOTE | 2024-10-28 23:14 | ED_ITS ---
HPI - General Adult General Chief complaint: Abdominal Pain Stated complaint: diarrhea,stomache ache,shakes Time Seen by Provider: 10/28/24 23:14 History of Present Illness ED Provider: Emmy ACOSTA narrative: The patient is a 54-year-old female with a history of a bipolar disorder. She also has sleep apnea and type 2 diabetes. She lives at a fpc. She says that her mother is her guardian and healthcare proxy. The patient says that yesterday afternoon she started to experience abdominal pain and loose stools. She had several loose stools yesterday evening and during the night. Today her pain seemed to be worsening. She is not having loose stools anymore. However she has a lot of pain on the left side of her abdomen and across her lower abdomen. She came to the emergency room for evaluation after contacting her primary care doctor's office. No definite fever. She has had nausea but no vomiting. She has never had symptoms like this before. She has a history of an appendectomy. Related Data Home Medications ?Medication ?Instructions ?Recorded ?Confirmed umeclidinium 62.5 mcg/actuation 1 inh inhalation DAILY 08/01/21 08/16/24 blister powder for inhalation (Incruse Ellipta) cholecalciferol (vitamin D3) 25 25 mcg PO DAILY 12/19/22 08/16/24 mcg (1,000 unit) tablet docusate sodium 100 mg capsule 200 mg PO DAILY 12/19/22 08/16/24 gabapentin 400 mg capsule 400 mg PO TID 12/19/22 08/16/24 metformin 500 mg tablet,extended 1,000 mg PO DAILY 12/19/22 08/16/24 release 24 hr pantoprazole 40 mg tablet,delayed 40 mg PO BID@0630,1630 12/19/22 08/16/24 release fluticasone propionate 50 1 spray intranasal BID 12/20/22 08/16/24 mcg/actuation nasal spray,suspension ferrous sulfate 325 mg (65 mg 325 mg PO BEDTIME 03/10/24 08/16/24 iron) tablet (FeroSul) hydroxyzine pamoate 100 mg capsule 100 mg PO BEDTIME 03/10/24 08/16/24 hydroxyzine pamoate 50 mg capsule 100 mg PO Q4H PRN Anxiety 03/10/24 08/16/24 sitagliptin phosphate 100 mg 100 mg PO DAILY 03/10/24 08/16/24 tablet (Januvia) Lactobacillus rhamnosus GG 15 2 cap PO DAILY 08/16/24 08/16/24 billion cell sprinkle capsule (Culturelle) albuterol sulfate 90 mcg/actuation 2 puff inhalation Q6H PRN Wheezing 08/16/24 08/16/24 aerosol inhaler (Ventolin HFA) ammonium lactate 12 % topical cream 1 appl topical BEDTIME 08/16/24 08/16/24 budesonide-formoterol HFA 160 2 puff inhalation BID 08/16/24 08/16/24 mcg-4.5 mcg/actuation aerosol inhaler carbamazepine 200 mg 600 mg PO BID 08/16/24 08/16/24 tablet,extended release,12 hr cyclobenzaprine 7.5 mg tablet 7.5 mg PO BEDTIME 08/16/24 08/16/24 dicyclomine 10 mg capsule 10 mg PO Q6H PRN Abdominal Pain 08/16/24 08/16/24 famotidine 40 mg tablet 40 mg PO BID 08/16/24 08/16/24 insulin glargine 100 unit/mL (3 10 unit subcut BEDTIME 08/16/24 08/16/24 mL) subcutaneous pen (Lantus Solostar U-100 Insulin) ipratropium 0.5 mg-albuterol 3 mg 3 ml inhalation BID PRN Shortness 08/16/24 08/16/24 (2.5 mg base)/3 mL nebulization Of Breath soln latanoprost 0.005 % eye drops 2 drp ophthalmic (eye) BEDTIME 08/16/24 08/16/24 lidocaine 4 % topical patch 1 patch topical DAILY 08/16/24 08/16/24 (Lidocaine Pain Relief) prazosin 2 mg capsule 2 mg PO BEDTIME 08/16/24 08/16/24 quetiapine 200 mg tablet 200 mg PO BEDTIME 08/16/24 08/16/24 quetiapine 50 mg tablet 50 mg PO Q6H PRN Anxiety 08/16/24 08/16/24 Previous Rx's ?Medication ?Instructions ?Recorded multivitamin (Daily-Emil tablet) 1 tab PO DAILY 30 days #30 tabs 08/15/21 trazodone 100 mg tablet 200 mg (2 x 100 mg) PO BEDTIME #0 01/24/22 tabs prazosin 5 mg capsule 5 mg PO BEDTIME 30 days #30 caps 01/01/23 ibuprofen 600 mg tablet 600 mg PO TID PRN fever or pain 03/24/24 #14 tabs loperamide 2 mg tablet (Imodium 2 mg PO Q6H PRN loose stool #10 06/14/24 A-D) tabs Allergies Allergy/AdvReac Type Severity Reaction Status Date / Time sulfamethoxazole Allergy Intermediate Rash Verified 10/28/24 20:37 [From Bactrim] trimethoprim [From Bactrim] Allergy Intermediate Rash Verified 10/28/24 20:37 adhesive tape Allergy Rash Verified 10/28/24 20:37 Standish And Derivatives Allergy Gastrointestinal Verified 10/28/24 20:37 Upset Benzodiazepines AdvReac Intermediate Hives Verified 10/28/24 20:37 diazepam [From Valium] AdvReac Intermediate Irritable Verified 10/28/24 20:37 Review of Systems 2 Review of Systems: Yes all other systems are reviewed and are negative [facility] Past Medical History Medical History GERD (gastroesophageal reflux disease) Sleep apnea Asthma Hearing loss Diabetes mellitus, type 2 Social History Social History Household Members: Other Household Members Other:: 2 Housing: Other Housing Other:: [facility] Do you presently have visiting nurse or other home services: Yes Alcohol intake: never Patient Tobacco Use Status: Never used Tobacco Smoked in Last 30 Days: No e-Cigarette/Vaping Use: Never Used Use of substances other than those prescribed or required for medical reasons: No Advance Directives: No Advance Directives Information Provided: No Patient : No service: No Sexual orientation: Straight/Heterosexual Physical Exam ED Vital Signs: Vital Signs - 24 hr 10/28/24 20:10 10/28/24 23:20 10/28/24 23:44 Temperature 97.2 F Pulse Rate 96 81 Respiratory Rate 17 16 15 Blood Pressure 158/84 H 133/87 Pulse Oximetry 95 96 Oxygen Delivery Method Room Air Room Air 10/29/24 06:18 Temperature 98.0 F Pulse Rate 83 Respiratory Rate 15 Blood Pressure 123/69 Pulse Oximetry 97 Oxygen Delivery Method Room Air BMI result Body Mass Index 46.2 Const Other: the patient is a 54-year-old woman who was awake and alert. She said that she was very uncomfortable. HENMT Other: Face is symmetrical. Mucous membranes moist. Eyes General: appearance normal, both eyes and all related structures Neck Neck: Yes normal visual inspection, Yes full ROM and Yes no lymphadenopathy Resp Effort & Inspection: normal respiratory effort Auscultation: clear to auscultation bilaterally Cardio Rate: regular rate Rhythm: regular rhythm Heart sounds: S1 normal heart sound present and S2 normal heart sound present GI Other: The patient was diffusely tender but maximally tender in the left lower quadrant. Skin Other: The skin is dry and unremarkable Neuro Other: the patient is awake and alert with normal mental status. She is very talkative. Cranial nerves are grossly intact. She moves her extremities normally and appropriately. Gait is normal. Extrem Other: No peripheral edema Medications Administered Discontinued Medications Generic Name Dose Route Start Last Admin Trade Name Freq PRN Reason Stop Dose Admin Sodium Chloride 1,000 mls @ 999 mls/hr 10/28/24 23:30 10/28/24 23:44 Ns IV 10/29/24 00:30 999 mls/hr .Q1H1M DORCAS Administration Iohexol 85 ml 10/29/24 00:03 10/29/24 00:04 Iohexol 350 Mg/Ml 100 Ml Infus..Btl IV 10/29/24 00:04 85 ml ONCE ONE Administration Morphine Sulfate 4 mg 10/28/24 23:28 10/28/24 23:44 Morphine Sulfate 4 Mg/Ml Cartridge IVPUSH 10/28/24 23:29 4 mg ONCE ONE Administration Protocol Ondansetron HCl 4 mg 10/28/24 23:28 10/28/24 23:44 Ondansetron Hcl 4 Mg/2 Ml Vial IVPUSH 10/28/24 23:29 4 mg ONCE ONE Administration Medical Decision Making Medical Decision Making [facility] Narrative: the patient is a 54-year-old female who presents with a 24 hour history of loose stools and worsening left lower quadrant abdominal pain. She was tender on exam. I was concerned about possible diverticulitis. Her laboratory evaluation was unremarkable. A CT scan of the abdomen and pelvis did not show any acute intra-abdominal process. The patient was treated symptomatically with IV morphine and ondansetron initially as well as IV fluids. She was ultimately also given a dose of ketorolac. She seemed to be feeling better. She seems to have a negative workup in the emergency room. I think she is safe to return to her fpc. She will be discharged. Lab Data 10/28/24 23:25 10/28/24 23:25 Labs: Lab Results 10/28/24 Range/Units 23:25 WBC 11.8 H (4.8-10.8) X10*3/uL RBC 4.63 (4.20-5.50) X10*6/uL Hgb 13.1 (12.0-16.0) g/dl Hct 39.1 (37.0-47.0) % MCV 84.4 (80.0-98.0) fL MCH 28.3 (27.0-33.0) pg MCHC 33.5 (31.0-35.0) g/dl RDW 13.9 (11.0-16.0) % Plt Count 240 (160-400) X10*3/uL MPV 9.1 L (9.4-12.3) fL Immature Gran % (Auto) 1.3 H (0.0-0.4) % Neut % (Auto) 63.0 (45-73) % Lymph % (Auto) 27.0 (20-40) % [place] % (Auto) 6.1 (2-11) % Eos % (Auto) 2.2 (0-4) % Baso % (Auto) 0.4 (0-2) % Lymph # (Auto) 3.2 (1.2-4.9) X10*3/uL [place] # (Auto) 0.7 (0.1-1.2) X10*3/uL Eos # (Auto) 0.3 (0.0-0.4) X10*3/uL Baso # (Auto) 0.1 (0.0-0.2) X10*3/uL Abs Immat Gran (auto) 0.15 H (0.00-0.03) X10*3/uL Absolute Neuts (auto) 7.4 (2.0-8.3) x10*3/uL Absolute Nucleated RBC 0.000 (0.0-0.012) X10*3/uL Nucleated RBC % (auto) 0.0 (0.0-0.2) /100WBC Sodium 140 (135-145) mmol/L Potassium 4.2 (3.3-5.1) mmol/L Chloride 106 (96-108) mmol/L Carbon Dioxide 28 (22-29) mmol/L Anion Gap 10 L (12-20) BUN 9 (9-16) mg/dL Creatinine 0.63 (0.5-1.4) mg/dL Estim Creat Clear Calc 123.7 Estimated GFR > 60 Random Glucose 95 (60-115) mg/dL Calcium 8.7 (8.4-10.2) mg/dL Magnesium 2.0 (1.6-2.6) mg/dL Total Bilirubin 0.3 (0.0-1.0) mg/dL Direct Bilirubin 0.1 (0.0-0.5) mg/dL AST 21 (5-31) U/L ALT 11 (0-31) U/L Alkaline Phosphatase 106 (39-117) U/L C-Reactive Protein 2.52 H (< or = 0.50) mg/dL Total Protein 7.1 (6.5-8.0) g/dL Albumin 3.8 (3.5-5.0) g/dL Lipase 19 (8-78) U/L Urine Color Yellow Urine Appearance Clear Urine pH 6.0 (5.0-9.0) Ur Specific [place] 1.015 (1.005-1.025) Urine Protein Negative (Neg-Trace) mg/dL Urine Glucose (UA) Negative (Negative) mg/dL Urine Ketones Negative (Negative) mg/dL Urine Blood Negative (Negative) Urine Nitrite Negative (Negative) Ur Leukocyte Esterase Negative (Negative) Discharge Plan Discharge Clinical Impression: Gastroenteritis Patient Disposition: Home, Self-Care Instructions: Gastritis (ED), Diet for Stomach Ulcers and Gastritis (ED) Prescriptions: No Action trazodone 100 mg Tablet 200 mg PO BEDTIME Qty: 0 0RF Incruse Ellipta 62.5 mcg/actuation Blister With Device 1 inh INHALATION DAILY multivitamin [Daily-Emil] Tablet 1 tab PO DAILY 30 Days Qty: 30 0RF ibuprofen 600 mg tablet 600 mg PO TID PRN (Reason: fever or pain) Qty: 14 0RF latanoprost 0.005 % drops 2 drp ophthalmic (eye) BEDTIME famotidine 40 mg tablet 40 mg PO BID quetiapine 200 mg tablet 200 mg PO BEDTIME carbamazepine 200 mg tablet extended release 12 hr 600 mg PO BID insulin glargine [Lantus Solostar U-100 Insulin] 100 unit/mL (3 mL) insulin pen 10 unit subcut BEDTIME ipratropium-albuterol 0.5 mg-3 mg(2.5 mg base)/3 mL solution for nebulization 3 ml inhalation BID PRN (Reason: Shortness Of Breath) Culturelle 15 billion cell capsule, sprinkle 2 cap PO DAILY lidocaine [Lidocaine Pain Relief] 4 % Adhesive Patch,Medicated 1 patch TOPICAL DAILY Rx Instructions: to back ammonium lactate 12 % Cream 1 appl TOPICAL BEDTIME Rx Instructions: to feet albuterol sulfate [Ventolin HFA] 90 mcg/actuation Hfa Aerosol Inhaler 2 puff INHALATION Q6H PRN (Reason: Wheezing) dicyclomine 10 mg Capsule 10 mg PO Q6H PRN (Reason: Abdominal Pain) prazosin 2 mg capsule 2 mg PO BEDTIME quetiapine 50 mg tablet 50 mg PO Q6H PRN (Reason: Anxiety) budesonide-formoterol 160-4.5 mcg/actuation HFA aerosol inhaler 2 puff INHALATION BID cyclobenzaprine 7.5 mg tablet 7.5 mg PO BEDTIME gabapentin 400 mg capsule 400 mg PO TID metformin 500 mg tablet extended release 24 hr 1,000 mg PO DAILY cholecalciferol (vitamin D3) 25 mcg (1,000 unit) tablet 25 mcg PO DAILY pantoprazole 40 mg tablet,delayed release (DR/EC) 40 mg PO BID@0630,1630 docusate sodium 100 mg capsule 200 mg PO DAILY fluticasone propionate 50 mcg/actuation spray,suspension 1 spray intranasal BID prazosin 5 mg capsule 5 mg PO BEDTIME 30 Days Qty: 30 0RF ferrous sulfate [FeroSul] 325 mg (65 mg iron) tablet 325 mg PO BEDTIME Januvia 100 mg tablet 100 mg PO DAILY hydroxyzine pamoate 100 mg capsule 100 mg PO BEDTIME hydroxyzine pamoate 50 mg capsule 100 mg PO Q4H PRN (Reason: Anxiety) loperamide [Imodium A-D] 2 mg tablet 2 mg PO Q6H PRN (Reason: loose stool) Qty: 10 0RF Interventions: ED Discharge Assessment Last Done: 10/29/24 06:18 Discharge Date/Time: 10/29/24 06:20 Print Language: Indonesian
[2024-10-28 23:20] VITALS: BP 133/87; PULSE 81; RESP 16; O2SAT 96
[2024-10-28 23:30] LABS: Basophils Absolute Auto 0.1 X10*3/uL (0.0-0.2); Basophils Percent Auto 0.4 % (0-2); Eosinophils Absolute Auto 0.3 X10*3/uL (0.0-0.4); Eosinophils Percent Auto 2.2 % (0-4); Hematocrit 39.1 % (37.0-47.0); Hemoglobin 13.1 g/dl (12.0-16.0); Imm Gran Abs Auto 0.15 X10*3/uL (0.00-0.03); Imm Gran Pct Auto 1.3 % (0.0-0.4); Lymphocytes Absolute Auto 3.2 X10*3/uL (1.2-4.9); MANUAL DIFF FLAG NO; Mean Corpuscular HGB Conc 33.5 g/dl (31.0-35.0); Mean Corpuscular Hemoglobin 28.3 pg (27.0-33.0); Mean Corpuscular Volume 84.4 fL (80.0-98.0); Mean Platelet Volume 9.1 fL (9.4-12.3); Monocytes Absolute Auto 0.7 X10*3/uL (0.1-1.2); Monocytes Percent Auto 6.1 % (2-11); Neutrophils Absolute Auto 7.4 x10*3/uL (2.0-8.3); Platelet Count 240 X10*3/uL (160-400); Red Blood Count 4.63 X10*6/uL (4.20-5.50); Red Cell Distribution Width 13.9 % (11.0-16.0); White Blood Count 11.8 X10*3/uL (4.8-10.8)
[2024-10-28 23:31] LABS: Appearance Urine Clear; Color Urine Yellow; Glucose Urine UA Negative (Negative); Leukocyte Esterase Urine Negative (Negative); Nitrite Urine Negative (Negative); Specific Gravity - Urine 1.015 (1.005-1.025); Urine Blood Negative (Negative); Urine Ketones Negative (Negative); Urine Protein Negative (Neg-Trace)
[2024-10-28 23:44] VITALS: RESP 15
[2024-10-28] MEDS: 0.9 % Sodium Chloride 1,000 ML 999 ML IV (23:44)
[2024-10-28] MEDS: ondansetron HCL 4 MG/2 ML VIAL IVPUSH (23:44)
[2024-10-28] MEDS: Morphine Sulfate 4 MG/ML CARTRIDGE IVPUSH (23:44)
[2024-10-28 23:45] LABS: Alanine Aminotransferase 11 U/L (0-31); Albumin Level 3.8 g/dL (3.5-5.0); Alkaline Phosphatase 106 U/L (39-117); Anion Gap 10 (12-20); Aspartate Amino Transferase 21 U/L (5-31); Bilirubin Direct 0.1 mg/dL (0.0-0.5); Bilirubin Total 0.3 mg/dL (0.0-1.0); Blood Urea Nitrogen 9 mg/dL (9-16); C Reactive Protein 2.52 mg/dL (< or = 0.50); Calcium 8.7 mg/dL (8.4-10.2); Carbon Dioxide 28 mmol/L (22-29); Chloride 106 mmol/L (96-108); Creatinine Clr Calc Pharmacy 123.7; Estimated Glomerular Filt Rate > 60; Glucose Random 95 mg/dL (60-115); Lipase 19 U/L (8-78); Potassium 4.2 mmol/L (3.3-5.1); Sodium 140 mmol/L (135-145); Total Protein 7.1 g/dL (6.5-8.0)
--- NOTE | 2024-10-28 23:47 | PC.NURSE ---
Assumed care of patient at 23:00. Patient resting in a stretcer bed, reporting 03/22 achy, sharp pain in lower abdomen with nausea and diarrhea x1 day, no vomiting. VSS. 20 G IV established in L forearm, patient medicated per, call collado in patient's reach, plan of care ongoing.
[2024-10-29] MEDS: iohexoL 350 MG/ML 100 ML INFUS..BTL 85 ML IV (00:04)
[2024-10-29 06:18] VITALS: BP 123/69; PULSE 83; RESP 15; TEMP 36.7; O2SAT 97
== END 2024-10-29 06:20 | disposition home or self-care (01) ==
PROVIDERS: Emergency Provider Emergency Medicine; PCP Physician Assistant
DX: K52.9 Noninfective gastroenteritis and colitis, unspecified (principal); R10.2 Pelvic and perineal pain; G47.30 Sleep apnea, unspecified; E11.9 Type 2 diabetes mellitus without complications; Z79.4 Long term (current) use of insulin; Z79.899 Other long term (current) drug therapy
CPT/HCPCS: 36415; 74177; 80048; 80076; 81003; 83690; 83735; 85025; 86140; 96374; 96375; 99284; 99285; J2270; J2405; Q9967

== ENCOUNTER → 2024-10-28 23:28 | Outpatient (BNV) | payer MEDICARE, MEDICAID, SELFPAY | PROVIDERS: Emergency Provider Emergency Medicine; PCP Physician Assistant; Visit Provider Radiology Diagnostic Radiology | DX: R10.32 Left lower quadrant pain (principal); R16.0 Hepatomegaly, not elsewhere classified | CPT/HCPCS: 74177 ==

== ENCOUNTER 2024-11-04 16:53 | Inpatient (IN) | payer MEDICARE, MEDICAID, SELFPAY ==
--- NOTE | ~2024-11-04 | XR_ITS ---
EXAMINATION: XR RIBS, BILATERAL CLINICAL INFORMATION: r/o rib fx COMPARISON: 04/02/2024, 03/24/2024. TECHNIQUE: 5 views of the bilateral ribs and 1 view of the chest were obtained. FINDINGS: Cardiac, hilar, and mediastinal contours are normal. There are aortic mural calcifications. The lungs are clear bilaterally. There is no pneumothorax or effusion. There is an S-shaped scoliosis of the thoracic spine, inferior aspect convex to the right, apex at T8. Ribs are intact. No fractures are identified. XR/XR ribs BI min 4V w CXR1V IMPRESSION: No acute bony abnormalities. No active pulmonary disease. Electronically signed by: Andrey Carroll MD 11/06/2024 11:35 AM EDT
[2024-11-04 17:12] VITALS: BP 142/96; PULSE 96; O2SAT 96
[2024-11-04 17:20] VITALS: BP 149/98; PULSE 95; RESP 18; TEMP 36.2; O2SAT 97; BMI 50.5
--- NOTE | 2024-11-04 17:35 | ED_ITS ---
HPI - Psych General Chief Complaint: Psychiatric Symptoms Stated Complaint: sudden urge to hurt self Time Seen by Provider: 11/04/24 17:08 Source: patient Mode of arrival: ambulatory Limitations: no limitations History of Present Illness ED Provider: Dr. Leilani Murcia HPI Narrative: Patient comes to the emergency room complaining of feeling anxious, suicidal, states that she feels manic. Patient states that she lives in a senior care and today she was seriously considering stabbing herself with scissors or jumping through a window. Patient states that people at her senior care/roommate told her that she should kill herself. Patient denies HI. Patient states that she is compliant with her medications but believes that her Tegretol levels are off. Related Data Home Medications ?Medication ?Instructions ?Recorded ?Confirmed umeclidinium 62.5 mcg/actuation 1 inh inhalation DAILY 08/01/21 08/16/24 blister powder for inhalation (Incruse Ellipta) cholecalciferol (vitamin D3) 25 25 mcg PO DAILY 12/19/22 11/04/24 mcg (1,000 unit) tablet docusate sodium 100 mg capsule 200 mg PO DAILY 12/19/22 11/04/24 gabapentin 400 mg capsule 400 mg PO TID 12/19/22 11/04/24 metformin 500 mg tablet,extended 1,000 mg PO BEDTIME 12/19/22 11/04/24 release 24 hr pantoprazole 40 mg tablet,delayed 40 mg PO BID@0630,1630 12/19/22 11/04/24 release fluticasone propionate 50 2 spray intranasal BID 12/20/22 11/04/24 mcg/actuation nasal spray,suspension ferrous sulfate 325 mg (65 mg 325 mg PO BEDTIME 03/10/24 11/04/24 iron) tablet (FeroSul) hydroxyzine pamoate 100 mg capsule 100 mg PO BEDTIME 03/10/24 08/16/24 hydroxyzine pamoate 50 mg capsule 100 mg PO Q4H PRN Anxiety 03/10/24 08/16/24 sitagliptin phosphate 100 mg 100 mg PO DAILY 03/10/24 11/04/24 tablet (Januvia) Lactobacillus rhamnosus GG 15 1 cap PO DAILY 08/16/24 11/04/24 billion cell sprinkle capsule (Culturelle) albuterol sulfate 90 mcg/actuation 2 puff inhalation Q6H PRN Wheezing 08/16/24 08/16/24 aerosol inhaler (Ventolin HFA) ammonium lactate 12 % topical cream 1 appl topical BEDTIME 08/16/24 11/04/24 budesonide-formoterol HFA 160 2 puff inhalation BID 08/16/24 08/16/24 mcg-4.5 mcg/actuation aerosol inhaler carbamazepine 200 mg 600 mg PO BID 08/16/24 11/04/24 tablet,extended release,12 hr cyclobenzaprine 7.5 mg tablet 7.5 mg PO BEDTIME 08/16/24 11/04/24 dicyclomine 10 mg capsule 10 mg PO Q6H PRN Abdominal Pain 08/16/24 11/04/24 famotidine 40 mg tablet 40 mg PO BID 08/16/24 11/04/24 insulin glargine 100 unit/mL (3 10 unit subcut BEDTIME 08/16/24 11/04/24 mL) subcutaneous pen (Lantus Solostar U-100 Insulin) ipratropium 0.5 mg-albuterol 3 mg 3 ml inhalation BID PRN Shortness 08/16/24 08/16/24 (2.5 mg base)/3 mL nebulization Of Breath soln latanoprost 0.005 % eye drops 2 drp ophthalmic (eye) BEDTIME 08/16/24 08/16/24 lidocaine 4 % topical patch 1 patch topical DAILY 08/16/24 08/16/24 (Lidocaine Pain Relief) prazosin 2 mg capsule 2 mg PO BEDTIME 08/16/24 11/04/24 quetiapine 200 mg tablet 400 mg PO BEDTIME 08/16/24 11/04/24 quetiapine 50 mg tablet 25 mg PO Q6H PRN Anxiety 08/16/24 11/04/24 Lidoderm 1 patch miscellaneous DAILY 11/04/24 11/04/24 PreviDent 5000 Dry Mouth 1 bead topical BID 11/04/24 11/04/24 Refresh 2 drp topical QID 11/04/24 11/04/24 cetirizine 10 mg PO DAILY 11/04/24 11/04/24 guaifenesin 400 mg PO Q6H PRN Congestion 11/04/24 11/04/24 lactase 3,000 unit tablet 6,000 unit PO Q6H PRN dairy meal 11/04/24 11/04/24 or snack ondansetron 4 mg disintegrating 4 mg PO Q6-8H PRN Nausea 11/04/24 11/04/24 tablet Previous Rx's ?Medication ?Instructions ?Recorded multivitamin (Daily-Emil tablet) 1 tab PO DAILY 30 days #30 tabs 08/15/21 trazodone 100 mg tablet 200 mg (2 x 100 mg) PO BEDTIME #0 01/24/22 tabs prazosin 5 mg capsule 5 mg PO BEDTIME 30 days #30 caps 01/01/23 ibuprofen 600 mg tablet 600 mg PO TID PRN fever or pain 03/24/24 #14 tabs loperamide 2 mg tablet (Imodium 2 mg PO Q6H PRN loose stool #10 06/14/24 A-D) tabs Allergies Allergy/AdvReac Type Severity Reaction Status Date / Time sulfamethoxazole Allergy Intermediate Rash Verified 11/04/24 17:42 [From Bactrim] trimethoprim [From Bactrim] Allergy Intermediate Rash Verified 11/04/24 17:42 adhesive tape Allergy Rash Verified 11/04/24 17:42 [place] [employer] Allergy Gastrointestinal Verified 11/04/24 17:42 Upset Benzodiazepines AdvReac Intermediate Hives Verified 11/04/24 17:42 diazepam [From Valium] AdvReac Intermediate Irritable Verified 11/04/24 17:42 Review of Systems 2 Review of Systems: Constitutional : No Weight loss, No Fever, No Chills, No Night Sweats, No Fatigue, No Malaise ENT/Mouth : No Hearing loss, No Ear Pain, No Nasal Congestion, No Sinus Pain, No Hoarseness, No sore throat, No Rhinorrhea, No Swallowing Difficulty Eyes: No Eye Pain, No Swelling, No Redness, No Foreign Body, No Discharge, No Vision Changes Cardiovascular : No Chest Pain, No SOB, No Dyspnea on Exertion, No Orthopnea, No Edema, No Palpitations Respiratory : No Cough, No Sputum, No Wheezing, No Smoke Exposure, No Dyspnea Gastrointestinal : No Nausea, No Vomiting, No Diarrhea, No Constipation, No abdominal Pain, No Hematochezia, No Melena Genitourinary : no irregular bleeding, No Dysuria, No Urinary Frequency, No Hematuria, No Urinary Incontinence, No Urgency, No Flank Pain, No Urinary Flow Changes, No Hesitancy Musculoskeletal : No joint pain, No Myalgias, No Joint Swelling Skin : No Skin Lesions, No rash Neuro : No Weakness, No Numbness, No Paresthesias, No Loss of Consciousness, No Dizziness, No Headache Psych : Complaining of anxiety and depression, patient is suicidal, not homicidal, denies drug abuse or alcohol abuse Heme/Lymph: No Bruising, No Bleeding,No Lymphadenopathy Endocrine : No Polyuria, No Polydipsia, No Temperature Intolerance [facility] Past Medical History Medical History GERD (gastroesophageal reflux disease) Sleep apnea Asthma Hearing loss Diabetes mellitus, type 2 Social History Social History Household Members: Other Household Members Other:: 2 Housing: Other Housing Other:: [facility] Do you presently have visiting nurse or other home services: Yes Alcohol intake: never Patient Tobacco Use Status: Never used Tobacco e-Cigarette/Vaping Use: Never Used Advance Directives: No Advance Directives Information Provided: No service: No Sexual orientation: Straight/Heterosexual Physical Exam 2 Vital Signs: Vital Signs: Last Vital Signs Temp 97.2 F 11/04/24 17:20 Pulse 95 11/04/24 17:20 Resp 18 11/04/24 17:20 BP 149/98 H 11/04/24 17:20 Pulse Ox 97 11/04/24 17:20 O2 Del Method Room Air 11/04/24 17:20 BMI result Body Mass Index 50.5 Const: Other: Appearance: Alert. Oriented X3. No acute distress. Eyes: Pupils equal, round and reactive to light. ENT: Pharynx normal. Neck: Normal inspection. Neck supple. No lymph nodes noted. No crepitus CVS: Normal heart rate and rhythm. Pulses normal. Normal S1 and S2 Respiratory: No respiratory distress. Breath sounds normal. No Wheezing. No rales Abdomen: Soft and nontender. No rigidity. No distention. Skin: Skin warm and dry. Normal skin color. Normal skin turgor. Extremities: No lower extremity edema. No Lacerations. No Rash Neuro: Oriented X 3. No motor deficit. No sensory deficit. Moving all extremities. No slurred speech. CN 2 through 12 grossly intact Psych: calm, anxious, hyperverbal Course Course Course Narrative: All of patient's labs pending Patient requesting her home medications Medications Administered Discontinued Medications Generic Name Dose Route Start Last Admin Trade Name Stephen PRN Reason Stop Dose Admin Acetaminophen 650 mg 11/04/24 19:55 11/04/24 19:58 Acetaminophen 325 Mg Tablet PO 11/04/24 19:56 650 mg ONCE ONE Administration Carbamazepine 100 mg 11/04/24 17:30 11/04/24 19:03 Carbamazepine 100 Mg Tab.Chew PO 11/04/24 17:31 100 mg ONCE ONE Administration Lorazepam 2 mg 11/04/24 17:30 11/04/24 19:02 Lorazepam 1 Mg Tablet PO 11/04/24 17:31 2 mg ONCE ONE Administration Medical Decision Making Medical Decision Making [facility] Narrative: Patient evaluated the patient. They believe that patient needs inpatient level of care. My interpretation of labs: Patient's hematology and chemistry at baseline, potassium slightly decreased 3.2, patient being repleted with p.o. potassium, LFTs within normal limits. Urinalysis shows blood, WBCs, squamous epithelial cells. Patient does not have any UTI symptoms. In the past, patient has had similar looking urinalysis. Urine culture did not grow any specific pathogen, antibiotics not indicated at this time Differential Diagnosis Differential Diagnoses: The differential diagnosis associated with the presentation includes (Anxiety, depression, polysubstance abuse, bipolar disorder) Admission/Observation Consideration of admission/observation: Escalation of care including admission/observation considered (It has been determined by behavioral health/care team that the patient needs in level patient of care) Lab Data [facility] Lab Attestation statement: I reviewed the patient's lab results. 11/04/24 19:55 11/04/24 19:55 Labs: Lab Results 11/04/24 11/04/24 Range/Units 18:13 19:55 WBC 11.5 H (4.8-10.8) X10*3/uL RBC 4.29 (4.20-5.50) X10*6/uL Hgb 12.3 (12.0-16.0) g/dl Hct 36.8 L (37.0-47.0) % MCV 85.8 (80.0-98.0) fL MCH 28.7 (27.0-33.0) pg MCHC 33.4 (31.0-35.0) g/dl RDW 13.9 (11.0-16.0) % Plt Count 212 (160-400) X10*3/uL MPV 9.4 (9.4-12.3) fL Immature Gran % (Auto) 0.8 H (0.0-0.4) % Neut % (Auto) 73.3 H (45-73) % Lymph % (Auto) 19.1 L (20-40) % [place] % (Auto) 4.5 (2-11) % Eos % (Auto) 2.0 (0-4) % Baso % (Auto) 0.3 (0-2) % Lymph # (Auto) 2.2 (1.2-4.9) X10*3/uL [place] # (Auto) 0.5 (0.1-1.2) X10*3/uL Eos # (Auto) 0.2 (0.0-0.4) X10*3/uL Baso # (Auto) 0.0 (0.0-0.2) X10*3/uL Abs Immat Gran (auto) 0.09 H (0.00-0.03) X10*3/uL Absolute Neuts (auto) 8.4 H (2.0-8.3) x10*3/uL Absolute Nucleated RBC 0.000 (0.0-0.012) X10*3/uL Nucleated RBC % (auto) 0.0 (0.0-0.2) /100WBC Sodium 143 (135-145) mmol/L Potassium 3.2 L D (3.3-5.1) mmol/L Chloride 106 (96-108) mmol/L Carbon Dioxide 29 (22-29) mmol/L Anion Gap 11 L (12-20) BUN 11 (9-16) mg/dL Creatinine 0.71 (0.5-1.4) mg/dL Estim Creat Clear Calc 120.3 Estimated GFR > 60 Random Glucose 109 (60-115) mg/dL Calcium 8.7 (8.4-10.2) mg/dL Total Bilirubin 0.1 (0.0-1.0) mg/dL Direct Bilirubin < 0.2 (0.0-0.5) mg/dL AST 19 (5-31) U/L ALT 16 (0-31) U/L Alkaline Phosphatase 104 (39-117) U/L Total Protein 6.8 (6.5-8.0) g/dL Albumin 3.7 (3.5-5.0) g/dL Urine Color Yellow Urine Appearance Clear Urine pH 5.5 (5.0-9.0) Ur Specific [place] 1.015 (1.005-1.025) Urine Protein 30 (1+) H (Neg-Trace) mg/dL Urine Glucose (UA) Negative (Negative) mg/dL Urine Ketones Trace (Negative) mg/dL Urine Blood Large (3+) H (Negative) Urine Nitrite Negative (Negative) Ur Leukocyte Esterase Trace H (Negative) Urine RBC 11-20 H (0-2) /HPF Urine WBC 6-10 H (0-5) /HPF Ur Squamous Epith Cells 3-5 (0-2) /HPF Urine Bacteria Trace (None Seen) Hyaline Casts 0-2 (0-2) /LPF Urine Opiates Screen Not Detected (Not Detect) Ur Buprenorphine Scrn Not Detected (Not Detect) ng/mL Ur Oxycodone Screen Not Detected (Not Detect) ng/mL Urine Methadone Screen Not Detected (Not Detect) ng/mL Urine Fentanyl Screen Not Detected (Not Detect) Ur Barbiturates Screen Not Detected (Not Detect) Carbamazepine 10.8 (5.0-12.0) mcg/mL Ur Phencyclidine Scrn Not Detected (Not Detect) Ur Amphetamines Screen Not Detected (Not Detect) U Benzodiazepines Scrn Not Detected (Not Detect) Urine Cocaine Screen Not Detected (Not Detect) U Marijuana (THC) Screen Not Detected (Not Detect) Ethyl Alcohol < 10 mg/dL Critical Care Time Critical Care Time Critical Care Time: Yes Total Critical Care Time: 35 Attestation: I have personally provided critical care time. Time includes review of lab data, radiology results, discussion with consultants, and monitoring for potential decompensation. Intervention performed as documented. Discharge Plan Discharge Clinical Impression: Bipolar disorder, Suicidal ideation Patient Disposition: Admitted As Inpatient Prescriptions: No Action trazodone 100 mg Tablet 200 mg PO BEDTIME Qty: 0 0RF Incruse Ellipta 62.5 mcg/actuation Blister With Device 1 inh INHALATION DAILY multivitamin [Daily-Emil] Tablet 1 tab PO DAILY 30 Days Qty: 30 0RF ibuprofen 600 mg tablet 600 mg PO TID PRN (Reason: fever or pain) Qty: 14 0RF latanoprost 0.005 % drops 2 drp ophthalmic (eye) BEDTIME famotidine 40 mg tablet 40 mg PO BID quetiapine 200 mg tablet 400 mg PO BEDTIME carbamazepine 200 mg tablet extended release 12 hr 600 mg PO BID insulin glargine [Lantus Solostar U-100 Insulin] 100 unit/mL (3 mL) insulin pen 10 unit subcut BEDTIME ipratropium-albuterol 0.5 mg-3 mg(2.5 mg base)/3 mL solution for nebulization 3 ml inhalation BID PRN (Reason: Shortness Of Breath) Culturelle 15 billion cell capsule, sprinkle 1 cap PO DAILY lidocaine [Lidocaine Pain Relief] 4 % Adhesive Patch,Medicated 1 patch TOPICAL DAILY Rx Instructions: to back ammonium lactate 12 % Cream 1 appl TOPICAL BEDTIME Rx Instructions: to feet albuterol sulfate [Ventolin HFA] 90 mcg/actuation Hfa Aerosol Inhaler 2 puff INHALATION Q6H PRN (Reason: Wheezing) dicyclomine 10 mg Capsule 10 mg PO Q6H PRN (Reason: Abdominal Pain) prazosin 2 mg capsule 2 mg PO BEDTIME quetiapine 50 mg tablet 25 mg PO Q6H PRN (Reason: Anxiety) budesonide-formoterol 160-4.5 mcg/actuation HFA aerosol inhaler 2 puff INHALATION BID cyclobenzaprine 7.5 mg tablet 7.5 mg PO BEDTIME cetirizine 10 mg PO DAILY lactase 3,000 unit Tablet 6,000 unit PO Q6H PRN (Reason: dairy meal or snack) Lidoderm 1 patch miscellaneous DAILY ondansetron 4 mg tablet,disintegrating 4 mg PO Q6-8H PRN (Reason: Nausea) guaifenesin 400 mg PO Q6H PRN (Reason: Congestion) PreviDent 5000 Dry Mouth 1 bead topical BID gabapentin 400 mg capsule 400 mg PO TID metformin 500 mg tablet extended release 24 hr 1,000 mg PO BEDTIME cholecalciferol (vitamin D3) 25 mcg (1,000 unit) tablet 25 mcg PO DAILY pantoprazole 40 mg tablet,delayed release (DR/EC) 40 mg PO BID@0630,1630 docusate sodium 100 mg capsule 200 mg PO DAILY fluticasone propionate 50 mcg/actuation spray,suspension 2 spray intranasal BID prazosin 5 mg capsule 5 mg PO BEDTIME 30 Days Qty: 30 0RF ferrous sulfate [FeroSul] 325 mg (65 mg iron) tablet 325 mg PO BEDTIME Januvia 100 mg tablet 100 mg PO DAILY hydroxyzine pamoate 100 mg capsule 100 mg PO BEDTIME hydroxyzine pamoate 50 mg capsule 100 mg PO Q4H PRN (Reason: Anxiety) loperamide [Imodium A-D] 2 mg tablet 2 mg PO Q6H PRN (Reason: loose stool) Qty: 10 0RF Interventions: Manning-Suicide Risk Severity Scale Last Done: 11/04/24 19:33 Print Language: [place]
[2024-11-04 18:23] LABS: Appearance Urine Clear; Color Urine Yellow; Glucose Urine UA Negative (Negative); Leukocyte Esterase Urine Trace (Negative); Nitrite Urine Negative (Negative); PH 5.5 (5.0-9.0); Specific Gravity - Urine 1.015 (1.005-1.025); UMIC TRIGGER UACC YES; Urine Blood Large (3+) (Negative); Urine Ketones Trace mg/dL (Negative); Urine Protein 30 (1+) mg/dL (Neg-Trace)
[2024-11-04 18:27] LABS: Bacteria Urine Trace (None Seen); Hyaline Casts Urine 0-2 /LPF (0-2); UACC Culture Trigger YES
[2024-11-04 18:32] LABS: Amphetamine Screen Urine Not Detected (Not Detect); Barbiturates, Urine Not Detected (Not Detect); Benzodiazepines Screen Urine Not Detected (Not Detect); Buprenorphine Scr Not Detected (Not Detect); Cannabinoid Screen Urine Not Detected (Not Detect); Cocaine Screen Urine Not Detected (Not Detect); Fentanyl, urine Not Detected (Not Detect); Methadone Screen, Urine Not Detected (Not Detect); Opiate Screen Urine Not Detected (Not Detect); Oxycodone Screen Urine Not Detected (Not Detect); Phencyclidine Screen Urine Not Detected (Not Detect)
[2024-11-04] MEDS: LORazepam 1 MG TABLET 2 MG PO (19:02)
[2024-11-04] MEDS: carBAMazepine 100 MG TAB.CHEW PO (19:03)
--- NOTE | 2024-11-04 19:38 | PC.NURSE ---
patient appears to remain at rest at present respirations are even and unlabored patient appears in no distress.
[2024-11-04] MEDS: Acetaminophen 325 MG TABLET 650 MG PO (19:58)
[2024-11-04 20:01] LABS: MANUAL DIFF FLAG NO
[2024-11-04 20:02] LABS: Basophils Percent Auto 0.3 % (0-2); Eosinophils Absolute Auto 0.2 X10*3/uL (0.0-0.4); Hematocrit 36.8 % (37.0-47.0); Hemoglobin 12.3 g/dl (12.0-16.0); Imm Gran Abs Auto 0.09 X10*3/uL (0.00-0.03); Imm Gran Pct Auto 0.8 % (0.0-0.4); Lymphocytes Absolute Auto 2.2 X10*3/uL (1.2-4.9); Lymphocytes Percent Auto 19.1 % (20-40); Mean Corpuscular HGB Conc 33.4 g/dl (31.0-35.0); Mean Corpuscular Hemoglobin 28.7 pg (27.0-33.0); Mean Corpuscular Volume 85.8 fL (80.0-98.0); Mean Platelet Volume 9.4 fL (9.4-12.3); Monocytes Absolute Auto 0.5 X10*3/uL (0.1-1.2); Monocytes Percent Auto 4.5 % (2-11); Neutrophils Absolute Auto 8.4 x10*3/uL (2.0-8.3); Neutrophils Percent Auto 73.3 % (45-73); Platelet Count 212 X10*3/uL (160-400); Red Blood Count 4.29 X10*6/uL (4.20-5.50); Red Cell Distribution Width 13.9 % (11.0-16.0); White Blood Count 11.5 X10*3/uL (4.8-10.8)
[2024-11-04 20:23] LABS: Alanine Aminotransferase 16 U/L (0-31); Albumin Level 3.7 g/dL (3.5-5.0); Alkaline Phosphatase 104 U/L (39-117); Anion Gap 11 (12-20); Aspartate Amino Transferase 19 U/L (5-31); Bilirubin Direct < 0.2 mg/dL (0.0-0.5); Bilirubin Total 0.1 mg/dL (0.0-1.0); Blood Urea Nitrogen 11 mg/dL (9-16); Calcium 8.7 mg/dL (8.4-10.2); Carbamazepine Tegretol 10.8 mcg/mL (5.0-12.0); Carbon Dioxide 29 mmol/L (22-29); Chloride 106 mmol/L (96-108); Creatinine Clr Calc Pharmacy 120.3; Estimated Glomerular Filt Rate > 60; Ethanol < 10 mg/dL; Glucose Random 109 mg/dL (60-115); Potassium 3.2 mmol/L (3.3-5.1); Sodium 143 mmol/L (135-145); Total Protein 6.8 g/dL (6.5-8.0)
[2024-11-04] MEDS: Potassium Chloride Packet 20 MEQ PACKET 40 MEQ PO (22:13)
--- NOTE | 2024-11-04 22:29 | PHA.MEDREC ---
Pharmacy Consult ? Medication Reconciliation Pharmacy has reviewed the medication reconciliation done by nursing. Utilized list from facility. updated med rec with corrections.
[2024-11-04 23:51] VITALS: BMI 44.5
[2024-11-04 23:59] VITALS: BP 143/93; PULSE 78; RESP 18; TEMP 36.8; O2SAT 96
[2024-11-05 00:44] LABS: Glucose, Whole Blood 111 mg/dL (60-115)
[2024-11-05] MEDS: Prazosin HCL 1 MG CAPSULE 2 MG PO ×2 (00:51→21:34)
[2024-11-05] MEDS: Prazosin HCL 5 MG CAPSULE PO ×2 (00:51→21:34)
[2024-11-05] MEDS: Cyclobenzaprine HCl 5 MG TABLET 7.5 MG PO ×2 (00:53→21:35)
[2024-11-05] MEDS: Ferrous Sulfate 324 MG TABLET.DR PO ×2 (00:54→21:34)
[2024-11-05] MEDS: traZODone HCL 100 MG TABLET 200 MG PO ×2 (00:54→21:34)
[2024-11-05] MEDS: Gabapentin 400 MG CAPSULE PO ×4 (00:54→21:34)
[2024-11-05] MEDS: QUEtiapine Fumarate 400 MG TABLET PO ×2 (00:54→21:34)
[2024-11-05] MEDS: Famotidine 20 MG TABLET 40 MG PO ×3 (00:54→21:34)
[2024-11-05] MEDS: carBAMazepine ER 200 MG TAB.ER.12H 600 MG PO ×3 (00:54→21:34)
[2024-11-05] MEDS: metFORMIN HCl ER 500 MG TAB.ER.24H 1000 MG PO ×2 (00:54→21:34)
[2024-11-05] MEDS: Insulin Glargine,Hum.rec.anlog 100 UNIT/ML 10 ML VIAL 10 UNIT SUBCUT ×2 (00:57→21:37)
--- NOTE | 2024-11-05 05:42 | PC.ADMIT ---
Pt is a 54 year old female admitted to after referral from the CARE Team at [facility]. Arrived on unit at 2334. Legal status: CV. Diagnosis: bipolar d/o and PTSD.? Pt currently resides in a [facility] chcf. Her parents, Shad & Crystal Calix are her guardians. Pt states that after returning home from a doctor?s appt. in which she was told that she will need to have 2 procedures on her right breast, she began feeling like she was ?crashing out? and stated ?I do not feel right at all?. Pt also reported being told by a female peer in her chcf that she should kill herself. She reported increased anxiety and depression, as well as experiencing dissociative episodes. Pt reported feeling increasingly suicidal with plans to either cut her wrists and face or punch a window. Per previous documentation, pt has a chronic history of reporting suicidality at baseline.? She reported recently being inpatient at [facility] 2 weeks ago, however her symptoms feel very different this time as she is worried about her medical procedures and a peer at her chcf telling her she should kill herself. Pt attends the [facility] day program twice a week and has outpatient providers throughout [facility].? At the time of admission assessment pt is a&o x4 and cooperative with the admission process. She presents with an anxious affect. Pt is utilizing a walker to assist with ambulation, though she came to the ED with crutches and a boot for her reports of torn ligaments in bilateral ankles. Pt also uses a CPAP at night and brought her own machine with her belongings. She continues to endorse anxiety and depression, denies any hallucinations at this time. Thought process seemed logical with no evidence of perceptual disturbance noted. She reports also having dissociative episodes, and states during these episodes it is most helpful to remind and reassure her that she is safe. Pt continues to report having suicidal ideation with thoughts to bang her head into the wall, however denies any intent to act on these thoughts and will seek out staff if needed. She reported poor sleep and appetite, saying she ?tosses and turns? in bed at night.? Pt was placed on 5 min safety checks due to utilizing a walker. Skin check was completed and unremarkable.?
[2024-11-05] MEDS: Omeprazole 20 MG CAPSULE.DR PO ×2 (06:27→15:56)
[2024-11-05 07:00] VITALS: BMI 26.6
[2024-11-05 08:00] VITALS: BP 151/77; PULSE 88; TEMP 36.5; O2SAT 99
[2024-11-05] MEDS: Docusate Sodium 100 MG CAPSULE 200 MG PO (08:32)
[2024-11-05] MEDS: Multivitamin TABLET 1 TAB PO (08:34)
[2024-11-05] MEDS: Cholecalciferol (Vitamin D3) 25 MCG TABLET PO (08:36)
[2024-11-05] MEDS: Loratadine 10 MG TABLET PO (08:36)
[2024-11-05] MEDS: SITagliptin Phosphate 100 MG TABLET PO (08:37)
[2024-11-05] MEDS: Fluticasone Propionate Nasal 16 GM SPRAY 2 SPRAY NOSTRIL-B (08:37)
[2024-11-05] MEDS: Artificial Tears 15 ML DROPS 2 DROP EYE-BOTH ×2 (08:38→15:57)
[2024-11-05 08:41] LABS: Estimated Average Glucose 105 mg/dL; Hemoglobin A1C 120.3657 umol/L; Hemoglobin A1c % 5.3 % (<6.0); Total Hemoglobin (HGBA1C) 3472.7722 umol/L
[2024-11-05 08:54] LABS: Alanine Aminotransferase 13 U/L (0-31); Albumin Level 3.9 g/dL (3.5-5.0); Alkaline Phosphatase 110 U/L (39-117); Anion Gap 13 (12-20); Aspartate Amino Transferase 18 U/L (5-31); Bilirubin Total 0.2 mg/dL (0.0-1.0); Blood Urea Nitrogen 10 mg/dL (9-16); Calcium 9.5 mg/dL (8.4-10.2); Carbon Dioxide 27 mmol/L (22-29); Chloride 106 mmol/L (96-108); Cholesterol 209 mg/dL (<200); Creatinine Clr Calc Pharmacy 127.6; Estimated Glomerular Filt Rate > 60; Glucose Random 93 mg/dL (60-115); HDL Cholesterol 39 mg/dL (>40); LDL Cholesterol Calculated 136 mg/dL (<100); Potassium 3.6 mmol/L (3.3-5.1); Sodium 142 mmol/L (135-145); Total Protein 7.2 g/dL (6.5-8.0); Triglycerides 171 mg/dL (<150)
[2024-11-05 09:08] LABS: TSH reflex Free T4 7.51 uIU/mL (0.32-4.0)
[2024-11-05 10:25] VITALS: BP 131/88; PULSE 86
[2024-11-05 10:34] LABS: Free T4 (Free Thyroxine) 0.71 ng/dL (0.71-1.85)
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
[2024-11-05 11:36] LABS: Glucose, Whole Blood 129 mg/dL (60-115)
[2024-11-05] MEDS: hydrOXYzine HCL 25 MG TABLET PO ×2 (15:54→21:39)
[2024-11-05] MEDS: Ibuprofen 600 MG TABLET PO (15:55)
[2024-11-05 16:43] LABS: Glucose, Whole Blood 126 mg/dL (60-115)
[2024-11-05 19:01] VITALS: PULSE 91; RESP 18; O2SAT 93
[2024-11-05] MEDS: Albuterol/Iprat 2.5/0.5MG 3 ML AMPUL.NEB INHALE ×2 (19:03→21:17)
[2024-11-05 19:20] VITALS: BP 139/85; PULSE 88; RESP 16; TEMP 36.8; O2SAT 96
[2024-11-05 21:25] VITALS: BP 135/85; PULSE 78
[2024-11-05 21:31] LABS: Glucose, Whole Blood 107 mg/dL (60-115)
[2024-11-06] MEDS: QUEtiapine Fumarate 25 MG TABLET PO ×2 (00:44→15:08)
[2024-11-06] MEDS: Omeprazole 20 MG CAPSULE.DR PO ×2 (07:09→15:07)
[2024-11-06 07:37] VITALS: BP 152/94; PULSE 82; RESP 14; TEMP 36.4; O2SAT 95
[2024-11-06 07:51] LABS: Glucose, Whole Blood 92 mg/dL (60-115)
[2024-11-06] MEDS: carBAMazepine ER 200 MG TAB.ER.12H 600 MG PO ×2 (09:06→20:20)
[2024-11-06] MEDS: Docusate Sodium 100 MG CAPSULE 200 MG PO (09:06)
[2024-11-06] MEDS: Gabapentin 400 MG CAPSULE PO ×3 (09:06→21:01)
[2024-11-06] MEDS: SITagliptin Phosphate 100 MG TABLET PO (09:07)
[2024-11-06] MEDS: Cholecalciferol (Vitamin D3) 25 MCG TABLET PO (09:07)
[2024-11-06] MEDS: Loratadine 10 MG TABLET PO (09:07)
[2024-11-06] MEDS: Multivitamin TABLET 1 TAB PO (09:07)
[2024-11-06] MEDS: Famotidine 20 MG TABLET 40 MG PO ×2 (09:07→20:24)
[2024-11-06] MEDS: Ibuprofen 600 MG TABLET PO ×2 (09:08→15:12)
[2024-11-06] MEDS: Fluticasone Propionate Nasal 16 GM SPRAY 2 SPRAY NOSTRIL-B ×2 (09:09→20:38)
[2024-11-06] MEDS: Artificial Tears 15 ML DROPS 2 DROP EYE-BOTH ×3 (09:09→16:58)
[2024-11-06] MEDS: Lidocaine 4 % Patch ADH..PATCH 1 PATCH TRANSDERMA (09:10)
[2024-11-06 09:19] VITALS: PULSE 82; RESP 14; O2SAT 94
[2024-11-06] MEDS: Albuterol/Iprat 2.5/0.5MG 3 ML AMPUL.NEB INHALE (09:19)
[2024-11-06] MEDS: Trolamine Salicylate 10 % Cream 85 GM TUBE 1 APPL TOPICAL ×2 (12:40→20:37)
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
[2024-11-06] MEDS: Lactase TABLET 1 TAB PO (16:58)
[2024-11-06 20:00] VITALS: BP 140/81; PULSE 85; RESP 16; TEMP 36.4; O2SAT 96
[2024-11-06 20:20] VITALS: BP 140/81
[2024-11-06] MEDS: Ferrous Sulfate 324 MG TABLET.DR PO (20:20)
[2024-11-06] MEDS: Prazosin HCL 5 MG CAPSULE PO (20:20)
[2024-11-06] MEDS: hydrOXYzine HCL 50 MG TABLET 100 MG PO (20:20)
[2024-11-06] MEDS: metFORMIN HCl ER 500 MG TAB.ER.24H 1000 MG PO (20:21)
[2024-11-06] MEDS: Cyclobenzaprine HCl 5 MG TABLET 7.5 MG PO (20:21)
[2024-11-06 20:24] VITALS: BP 140/81
[2024-11-06] MEDS: QUEtiapine Fumarate 400 MG TABLET PO (20:24)
[2024-11-06] MEDS: traZODone HCL 100 MG TABLET 200 MG PO (20:24)
[2024-11-06] MEDS: Prazosin HCL 1 MG CAPSULE 2 MG PO (20:24)
[2024-11-06 20:31] LABS: Glucose, Whole Blood 102 mg/dL (60-115)
[2024-11-06] MEDS: Sodium Chloride 0.65 % Nasal 44 ML SPRBTL 1 SPRAY NOSTRIL-B (20:38)
[2024-11-06] MEDS: Albuterol Sulfate 90 MCG 8 GM INHALER 2 PUFF INHALE (20:38)
[2024-11-06] MEDS: Acetaminophen 325 MG TABLET 975 MG PO (20:38)
[2024-11-06] MEDS: Insulin Glargine,Hum.rec.anlog 100 UNIT/ML 10 ML VIAL 10 UNIT SUBCUT (20:40)
[2024-11-07] MEDS: Omeprazole 20 MG CAPSULE.DR PO ×2 (06:31→16:39)
[2024-11-07 08:00] VITALS: BP 129/76; PULSE 86; RESP 18; TEMP 36.3; O2SAT 96
[2024-11-07 08:13] LABS: Glucose, Whole Blood 99 mg/dL (60-115)
[2024-11-07] MEDS: Famotidine 20 MG TABLET 40 MG PO ×2 (08:41→20:30)
[2024-11-07] MEDS: SITagliptin Phosphate 100 MG TABLET PO (08:42)
[2024-11-07] MEDS: carBAMazepine ER 200 MG TAB.ER.12H 600 MG PO ×2 (08:42→20:30)
[2024-11-07] MEDS: Loratadine 10 MG TABLET PO (08:42)
[2024-11-07] MEDS: Multivitamin TABLET 1 TAB PO (08:42)
[2024-11-07] MEDS: Gabapentin 400 MG CAPSULE PO ×3 (08:42→20:30)
[2024-11-07] MEDS: Docusate Sodium 100 MG CAPSULE 200 MG PO (08:42)
[2024-11-07] MEDS: Cholecalciferol (Vitamin D3) 25 MCG TABLET PO (08:42)
[2024-11-07] MEDS: Fluticasone/Vilanterol 200/25 BLST.W.DEV 1 PUFF INHALE (08:47)
[2024-11-07] MEDS: Fluticasone Propionate Nasal 16 GM SPRAY 2 SPRAY NOSTRIL-B ×2 (08:47→20:37)
[2024-11-07] MEDS: Artificial Tears 15 ML DROPS 2 DROP EYE-BOTH ×4 (08:47→20:46)
[2024-11-07] MEDS: Ibuprofen 600 MG TABLET PO ×2 (08:48→20:32)
[2024-11-07] MEDS: Tiotropium Bromide 2.5 mcg 1 PUFF/2.5 MCG MIST.INHAL 2 PUFF INHALE (08:50)
--- NOTE | 2024-11-07 10:10 | PC.NURSE ---
Respiratory called and notified patient is requesting updraft treatment.
[2024-11-07] MEDS: Albuterol/Iprat 2.5/0.5MG 3 ML AMPUL.NEB INHALE ×2 (10:18→20:51)
[2024-11-07] MEDS: QUEtiapine Fumarate 25 MG TABLET PO (10:33)
[2024-11-07] MEDS: hydrOXYzine HCL 50 MG TABLET 100 MG PO ×2 (10:33→20:31)
--- NOTE | 2024-11-07 10:44 | HO.PSYCHPN ---
Subjective Subjective Date of Service: 11/07/24 Reason For Visit: Decompensation Subjective Notes: Conditional Voluntary Interim History: Pt slept through the night. She presents with numerous of somatic concerns, feels is not being heard. reports is very hard to swallow, like knives in my throat thinks this is sign of pneumonia. reports she is ready to be d/c next week. No SI/HI. visible on the unit. in no visible physical distress. Review of Systems Review of Systems Negative except for that which is stated in the HPI. Mental Status Exam Mental Status Exam Narrative: appropriately dressed and groomed; hair dyed bright red. cooperative. no PMA/PMR. speech nml rate, incr amount, nml loudness, nml tone, nml latency. thoughts linear and logical. affect constricted, normo-intense, non-labile, consistent with content of speech. mood anxious. + SI/SIBI. no HI/AVH. Diagnostics Vital Signs (24Hr): Vital Signs - 24 hr 11/06/24 20:00 11/06/24 20:20 11/06/24 20:24 Temperature 97.6 F Pulse Rate 85 Respiratory Rate 16 Blood Pressure 140/81 H 140/81 H 140/81 H Pulse Oximetry 96 Oxygen Delivery Method Room Air 11/07/24 08:00 Temperature 97.3 F Pulse Rate 86 Respiratory Rate 18 Blood Pressure 129/76 Pulse Oximetry 96 Oxygen Delivery Method Room Air BMI result Body Mass Index 26.6 Labs 11/04/24 19:55 11/05/24 07:56 Labs: Laboratory Results - last 48 hr 11/05/24 11/05/24 11/05/24 11:27 16:38 21:27 POC Glucose 129 H 126 H 107 11/06/24 11/06/24 11/07/24 07:46 20:19 08:00 POC Glucose 92 102 99 Imaging Radiology Impressions: ITS Impressions Ribs w/Chest X-Ray 11/06/24 11:00 IMPRESSION: No acute bony abnormalities. No active pulmonary disease. Electronically signed by: Andrey Carroll MD 11/06/2024 11:35 AM EDT Medications Medications Current Medications Acetaminophen (Acetaminophen 325 Mg Tablet) 975 mg PO Q8H PRN PRN Reason: Fever Or Pain (scale 1-10) Last Admin: 11/06/24 20:38 Dose: 975 mg Al Hydroxide/Mg Hydroxide (Magnesium Hydrox/Alum Hydrox 30 Ml Oral.Susp) 30 ml PO Q6H PRN PRN Reason: Heartburn/Nausea Albuterol Sulfate (Albuterol Sulfate 90 Mcg 8 Gm Inhaler) 2 puff INHALE Q4H PRN PRN Reason: Shortness of Breath Last Admin: 11/06/24 20:38 Dose: 2 puff Albuterol/Ipratropium (Albuterol/Iprat 2.5/0.5mg 3 Ml Ampul.Neb) 3 ml INHALE BID [facility] Last Admin: 11/07/24 10:18 Dose: 3 ml Artificial Tears (Artificial Tears 15 Ml Drops) 2 drop EYE-BOTH QID [facility] Last Admin: 11/07/24 08:47 Dose: 2 drop Carbamazepine (Carbamazepine Er 200 Mg Tab.Er.12h) 600 mg PO BID [facility] Last Admin: 11/07/24 08:42 Dose: 600 mg Cyclobenzaprine HCl (Cyclobenzaprine Hcl 5 Mg Tablet) 7.5 mg PO BEDTIME [facility] Last Admin: 11/06/24 20:21 Dose: 7.5 mg Dextrose (Dextrose 50 % 25 Gm/50 Ml Syringe) 25 gm IVPUSH Q15M PRN; Protocol PRN Reason: per Hypoglycemia Standing Ord. Dicyclomine HCl (Dicyclomine Hcl 10 Mg Capsule) 10 mg PO Q6H PRN PRN Reason: Abdominal Pain Docusate Sodium (Docusate Sodium 100 Mg Capsule) 200 mg PO DAILY [facility] Last Admin: 11/07/24 08:42 Dose: 200 mg Famotidine (Famotidine 20 Mg Tablet) 40 mg PO BID [facility] Last Admin: 11/07/24 08:41 Dose: 40 mg Ferrous Sulfate (Ferrous Sulfate 324 Mg Tablet.Dr) 324 mg PO BEDTIME [facility] Last Admin: 11/06/24 20:20 Dose: 324 mg Fluticasone Propionate (Fluticasone Propionate Nasal 16 Gm [place]) 2 spray NOSTRIL-B BID [facility] Last Admin: 11/07/24 08:47 Dose: 2 spray Fluticasone/Vilanterol (Fluticasone/Vilanterol 200/25 Blst.W.Dev) 1 puff INHALE RDAILY [facility] Last Admin: 11/07/24 08:47 Dose: 1 puff Gabapentin (Gabapentin 400 Mg Capsule) 400 mg PO TID [facility] Last Admin: 11/07/24 08:42 Dose: 400 mg Glucose (Glucose Gel 15 Gm Gel..Gram.) 15 gm PO Q15M PRN; Protocol PRN Reason: per Hypoglycemia Standing Ord. Hydroxyzine HCl (Hydroxyzine Hcl 50 Mg Tablet) 100 mg PO TID PRN PRN Reason: mild anxiety Last Admin: 11/07/24 10:33 Dose: 100 mg Hydroxyzine HCl (Hydroxyzine Hcl 50 Mg Tablet) 100 mg PO BEDTIME [facility] Last Admin: 11/06/24 20:20 Dose: 100 mg Ibuprofen (Ibuprofen 600 Mg Tablet) 600 mg PO TID PRN PRN Reason: fever or pain Last Admin: 11/07/24 08:48 Dose: 600 mg Insulin Glargine (Insulin Glargine,Hum.Rec.Anlog 100 Unit/Ml 10 Ml Vial) 10 unit SUBCUT BEDTIME [facility] Last Admin: 11/06/24 20:40 Dose: 10 unit Insulin Human Lispro (Insulin Lispro 100 Unit/Ml 3 Ml Vial) 0 unit SUBCUT BID [facility]; Protocol Last Admin: 11/07/24 08:48 Dose: Not Given Lactase (Lactase Tablet) 1 tab PO Q6H PRN PRN Reason: dairy meal or snack Last Admin: 11/06/24 16:58 Dose: 1 tab Lactic Acid (Ammonium Lactate 12 % Cream 140 Gm Tube) 1 appl TOPICAL BEDTIME [facility]; Protocol Last Admin: 11/06/24 20:48 Dose: Not Given Latanoprost (Latanoprost 0.005 % Ophth Mini 2.5 Ml Drops) 2 drop EYE-BOTH BEDTIME [facility] Last Admin: 11/06/24 20:50 Dose: Not Given Lidocaine (Lidocaine 4 % Patch Adh..Patch) 1 patch TRANSDERMA DAILY PRN; Protocol PRN Reason: musculoskeletal pain Last Admin: 11/06/24 09:10 Dose: 1 patch Loratadine (Loratadine 10 Mg Tablet) 10 mg PO DAILY [facility] Last Admin: 11/07/24 08:42 Dose: 10 mg Magnesium Hydroxide (Milk Of Magnesia 30 Ml Oral.Susp) 30 ml PO DAILY PRN PRN Reason: Constipation Metformin HCl (Metformin Hcl Er 500 Mg Tab.Er.24h) 1,000 mg PO BEDTIME [facility] Last Admin: 11/06/24 20:21 Dose: 1,000 mg Multivitamins/Vitamin C (Multivitamin Tablet) 1 tab PO DAILY [facility] Last Admin: 11/07/24 08:42 Dose: 1 tab Nicotine Polacrilex (Nicotine Polacrilex 2 Mg Gum) 4 mg BUCCAL Q2H PRN PRN Reason: Nicotine Cravings Olanzapine (Olanzapine 5 Mg Tablet) 5 mg PO TID PRN PRN Reason: agitation Omeprazole (Omeprazole 20 Mg Capsule.Dr) 20 mg PO BID@0630,1630 [facility] Last Admin: 11/07/24 06:31 Dose: 20 mg Ondansetron HCl (Ondansetron Odt 4 Mg Tab.Rapdis) 4 mg TRANSLINGU Q6H PRN PRN Reason: Nausea Prazosin HCl (Prazosin Hcl 1 Mg Capsule) 2 mg PO BEDTIME [facility]; Protocol Last Admin: 11/06/24 20:24 Dose: 2 mg Prazosin HCl (Prazosin Hcl 5 Mg Capsule) 5 mg PO BEDTIME [facility]; Protocol Last Admin: 11/06/24 20:20 Dose: 5 mg Quetiapine Fumarate (Quetiapine Fumarate 25 Mg Tablet) 25 mg PO Q6H PRN PRN Reason: moderate Anxiety Last Admin: 11/07/24 10:33 Dose: 25 mg Quetiapine Fumarate (Quetiapine Fumarate 400 Mg Tablet) 400 mg PO BEDTIME [facility] Last Admin: 11/06/24 20:24 Dose: 400 mg Sitagliptin Phosphate (Sitagliptin Phosphate 100 Mg Tablet) 100 mg PO DAILY [facility] Last Admin: 11/07/24 08:42 Dose: 100 mg Sodium Chloride (Sodium Chloride 0.65 % Nasal 44 Ml Sprbtl) 1 spray NOSTRIL-B Q1H PRN PRN Reason: nasal congestion Last Admin: 11/06/24 20:38 Dose: 1 spray Tiotropium [place] (Tiotropium [place] 2.5 Mcg 1 Puff/2.5 Mcg Mist.Inhal) 2 puff INHALE RDAILY [facility] Last Admin: 11/07/24 08:50 Dose: 2 puff Trazodone HCl (Trazodone Hcl 50 Mg Tablet) 50 mg PO BEDTIME [facility] PRN PRN Reason: Insomnia Trazodone HCl (Trazodone Hcl 100 Mg Tablet) 200 mg PO BEDTIME [facility] Last Admin: 11/06/24 20:24 Dose: 200 mg Trolamine Salicylate (Trolamine Salicylate 10 % Cream 85 Gm Tube) 1 appl TOPICAL TID PRN; Protocol PRN Reason: rib pain Last Admin: 11/06/24 20:37 Dose: 1 appl Vitamin D (Cholecalciferol (Vitamin D3) 25 Mcg Tablet) 25 mcg PO DAILY [facility] Last Admin: 11/07/24 08:42 Dose: 25 mcg Allergies Allergies Allergy/AdvReac Type Severity Reaction Status Date / Time sulfamethoxazole Allergy Intermediate Rash Verified 11/04/24 17:42 [From Bactrim] trimethoprim [From Bactrim] Allergy Intermediate Rash Verified 11/04/24 17:42 adhesive tape Allergy Rash Verified 11/04/24 17:42 Page And Derivatives Allergy Gastrointestinal Verified 11/04/24 17:42 Upset Benzodiazepines AdvReac Intermediate Hives Verified 11/04/24 17:42 diazepam [From Valium] AdvReac Intermediate Irritable Verified 11/04/24 17:42 Assessment & Plan Assessment & Plan (1) Suicidal ideation: Status: Acute Code(s): R45.851 - Suicidal ideations (2) Bipolar disorder: Status: Acute Code(s): F31.9 - Bipolar disorder, unspecified (3) Diabetes mellitus, type 2: Status: Acute Code(s): E11.9 - Type 2 diabetes mellitus without complications (4) Sleep apnea: Status: Acute Code(s): G47.30 - Sleep apnea, unspecified Plan 11/05: continue home meds. supportive care. dispo planning. 11/06: change POC to BID, add nasal moistening spray, add aspercreme for rib pain, restart asthma inhalers - pt to obtain from her assisted, check CXR for ribs pain. otherwise continue current mgmt. do NOT give ativan. 11/07 continue tx. cepacol ordered. Reason for continued inpatient stay Substantial Risk for: inability to function Time Spent With Patient Time: Total time managing care of this patient today ____ minutes.
[2024-11-07] MEDS: Acetaminophen 325 MG TABLET 975 MG PO (12:48)
[2024-11-07] MEDS: SUMAtriptan succinate 50 MG TABLET PO (13:42)
[2024-11-07 20:00] VITALS: BP 150/74; PULSE 81; RESP 18; TEMP 36.7; O2SAT 96
[2024-11-07 20:23] LABS: Glucose, Whole Blood 115 mg/dL (60-115)
[2024-11-07 20:30] VITALS: BP 150/74
[2024-11-07] MEDS: Ferrous Sulfate 324 MG TABLET.DR PO (20:30)
[2024-11-07] MEDS: Prazosin HCL 1 MG CAPSULE 2 MG PO (20:30)
[2024-11-07] MEDS: Cyclobenzaprine HCl 5 MG TABLET 7.5 MG PO (20:31)
[2024-11-07] MEDS: metFORMIN HCl ER 500 MG TAB.ER.24H 1000 MG PO (20:31)
[2024-11-07 20:32] VITALS: BP 150/74
[2024-11-07] MEDS: Prazosin HCL 5 MG CAPSULE PO (20:32)
[2024-11-07] MEDS: QUEtiapine Fumarate 400 MG TABLET PO (20:33)
[2024-11-07] MEDS: traZODone HCL 100 MG TABLET 200 MG PO (20:33)
[2024-11-07] MEDS: Sodium Chloride 0.65 % Nasal 44 ML SPRBTL 1 SPRAY NOSTRIL-B (20:37)
[2024-11-07] MEDS: Trolamine Salicylate 10 % Cream 85 GM TUBE 1 APPL TOPICAL (20:37)
[2024-11-07] MEDS: Latanoprost 0.005 % Ophth Sol 2.5 ML DROPS 2 DROP EYE-BOTH (20:38)
[2024-11-07] MEDS: Insulin Glargine,Hum.rec.anlog 100 UNIT/ML 10 ML VIAL 10 UNIT SUBCUT (20:43)
[2024-11-07] MEDS: Albuterol Sulfate 90 MCG 8 GM INHALER 2 PUFF INHALE (20:47)
[2024-11-07 20:51] VITALS: RESP 16
[2024-11-08] MEDS: Albuterol Sulfate 90 MCG 8 GM INHALER 2 PUFF INHALE ×3 (01:52→20:57)
--- NOTE | 2024-11-08 02:24 | PC.NURSE ---
At around 0145, Nora woke up abruptly d/t chest tightness, wheezing, and difficulty breathing. 11/06 pt had an unremarkable chest xray, no pulmonary disease indicated. Pt's VS were; 97.5, HR 99, O2 97%, 130/88. POCs are within normal limits. WBCs were 11.5 on 11/04. Dr. Kebede was notified and a routine hospitalist consult was placed.
[2024-11-08] MEDS: Omeprazole 20 MG CAPSULE.DR PO ×2 (06:17→15:36)
[2024-11-08] MEDS: Ibuprofen 600 MG TABLET PO ×2 (06:24→21:05)
--- NOTE | 2024-11-08 06:41 | PC.NURSE ---
Around 2044, pt reported migraine pain as a 10/10.PRN Tylenol and Ibuprofen, with minimal effect. Reported some relief from Sumatriptan and requested another dose. Dr. Kebede was notified and authorized a one time dose telephone order. Pt appeared to be asleep shortly after. Pt did not receieve one time dose. No further complaints regarding migraine during this shift.
[2024-11-08 07:25] VITALS: BP 121/60; PULSE 90; RESP 12; TEMP 36.4; O2SAT 96
[2024-11-08 07:32] LABS: Glucose, Whole Blood 109 mg/dL (60-115)
--- NOTE | 2024-11-08 08:18 | P.CONHOSP_ITS ---
History of Present Illness Data of Consult Service Date: 11/08/24 Primary Care Provider: Unknown Physician HPI Reason for consult: Chronic lung disease Pt is a 54 year old female with a PMH significant for asthma, insulin-dependent type 2 diabetes, GERD, IRINA on CPAP, and mood disorder currently living in a care home who was [facility] for increased depression with SI with plan to stab herself with sisters were jump out of a window. Medical consult for chronic lung disease. Pt has been somatically oriented during psychiatric admission. Two days prior pt was complaining of rib pain and was certain that she had rib fractures. Chest and rib x-ray negative for any acute abnormality. Last night pt woke from sleep at approximately 01:45 with chest tightness and difficulty breathing. Was given an updraft which she said did not really help that much. Pt has been using CPAP at night while on the unit. Today pt complains of continued difficulty breathing, SOB, and chest tightness with inspiration. Reports she ?feels real sick? and believes that she has pneumonia because she ?gets pneumonia real easy?. Denies fever, chills. Occasional nonproductive cough at baseline. Denies nausea, vomiting, abdominal pain. Vitals reviewed and WNL. Pt has remained afebrile without tachycardia or tachypnea. Satting at 96% on RA. CBC from 11/04/2024 without significant leukocytosis. CMP from 11/05 with elevated lipid panel, and TSH elevated at 7.51 and free T4 low normal at 0.71. Chest and rib x-ray on 11/06 negative for bony abnormalities or acute pulmonary disease. Review of Systems 2 Review of Systems: Negative except for that which is stated in the HPI. [facility] Medical History GERD (gastroesophageal reflux disease) Sleep apnea Asthma Hearing loss Diabetes mellitus, type 2 Social History Household Members: Other Household Members Other:: care home Housing: Other Housing Other:: [facility] care home Do you presently have visiting nurse or other home services: Yes Alcohol intake: never Comment: pt on 5 min checks Patient Tobacco Use Status: Never used Tobacco e-Cigarette/Vaping Use: Never Used Use of substances other than those prescribed or required for medical reasons: No Currently Displaying Signs/Symptoms of Drug Intoxication Withdrawal: No Have you been hit, kicked, punched, or otherwise hurt by someone within the past year? If so, by whom?: No Do you feel safe in your current relationship?: No Current Relationship Is there a partner from a previous relationship who is making you feel unsafe now?: No Are you made to feel afraid or neglected: No Spiritual Healthcare Practices: none identified Congregation Healthcare Practices: none identified Cultural Healthcare Practices: none identified Advance Directives: No Advance Directives Information Provided: No Do you have thoughts of harming others: None Do you have a plan to hurt others: No Plan Recently lost weight without trying: No Nutrition Risks: No Nutritional Risk Patient : No : No Poor oral hygiene: No service: No Sexual orientation: Straight/Heterosexual Meds Allergies Allergy/AdvReac Type Severity Reaction Status Date / Time sulfamethoxazole Allergy Intermediate Rash Verified 11/04/24 17:42 [From Bactrim] trimethoprim [From Bactrim] Allergy Intermediate Rash Verified 11/04/24 17:42 adhesive tape Allergy Rash Verified 11/04/24 17:42 [place] And Derivatives Allergy Gastrointestinal Verified 11/04/24 17:42 Upset Benzodiazepines AdvReac Intermediate Hives Verified 11/04/24 17:42 diazepam [From Valium] AdvReac Intermediate Irritable Verified 11/04/24 17:42 Active Medications: Current Medications Acetaminophen (Acetaminophen 325 Mg Tablet) 975 mg PO Q8H PRN PRN Reason: Fever Or Pain (scale 1-10) Last Admin: 11/07/24 12:48 Dose: 975 mg Al Hydroxide/Mg Hydroxide (Magnesium Hydrox/Alum Hydrox 30 Ml Oral.Susp) 30 ml PO Q6H PRN PRN Reason: Heartburn/Nausea Albuterol Sulfate (Albuterol Sulfate 90 Mcg 8 Gm Inhaler) 2 puff INHALE Q4H PRN PRN Reason: Shortness of Breath Last Admin: 11/08/24 06:24 Dose: 2 puff Albuterol/Ipratropium (Albuterol/Iprat 2.5/0.5mg 3 Ml Ampul.Neb) 3 ml INHALE BID [facility] Last Admin: 11/07/24 20:51 Dose: 3 ml Artificial Tears (Artificial Tears 15 Ml Drops) 2 drop EYE-BOTH QID [facility] Last Admin: 11/07/24 20:46 Dose: 2 drop Carbamazepine (Carbamazepine Er 200 Mg Tab.Er.12h) 600 mg PO BID [facility] Last Admin: 11/07/24 20:30 Dose: 600 mg Cyclobenzaprine HCl (Cyclobenzaprine Hcl 5 Mg Tablet) 7.5 mg PO BEDTIME [facility] Last Admin: 11/07/24 20:31 Dose: 7.5 mg Dextrose (Dextrose 50 % 25 Gm/50 Ml Syringe) 25 gm IVPUSH Q15M PRN; Protocol PRN Reason: per Hypoglycemia Standing Ord. Dicyclomine HCl (Dicyclomine Hcl 10 Mg Capsule) 10 mg PO Q6H PRN PRN Reason: Abdominal Pain Docusate Sodium (Docusate Sodium 100 Mg Capsule) 200 mg PO DAILY [facility] Last Admin: 11/07/24 08:42 Dose: 200 mg Famotidine (Famotidine 20 Mg Tablet) 40 mg PO BID [facility] Last Admin: 11/07/24 20:30 Dose: 40 mg Ferrous Sulfate (Ferrous Sulfate 324 Mg Tablet.Dr) 324 mg PO BEDTIME [facility] Last Admin: 11/07/24 20:30 Dose: 324 mg Fluticasone Propionate (Fluticasone Propionate Nasal 16 Gm [place]) 2 spray NOSTRIL-B BID [facility] Last Admin: 11/07/24 20:37 Dose: 2 spray Fluticasone/Vilanterol (Fluticasone/Vilanterol 200/25 Blst.W.Dev) 1 puff INHALE RDAILY [facility] Last Admin: 11/07/24 08:47 Dose: 1 puff Gabapentin (Gabapentin 400 Mg Capsule) 400 mg PO TID [facility] Last Admin: 11/07/24 20:30 Dose: 400 mg Glucose (Glucose Gel 15 Gm Gel..Gram.) 15 gm PO Q15M PRN; Protocol PRN Reason: per Hypoglycemia Standing Ord. Hydroxyzine HCl (Hydroxyzine Hcl 50 Mg Tablet) 100 mg PO TID PRN PRN Reason: mild anxiety Last Admin: 11/07/24 10:33 Dose: 100 mg Hydroxyzine HCl (Hydroxyzine Hcl 50 Mg Tablet) 100 mg PO BEDTIME [facility] Last Admin: 11/07/24 20:31 Dose: 100 mg Ibuprofen (Ibuprofen 600 Mg Tablet) 600 mg PO TID PRN PRN Reason: fever or pain Last Admin: 11/08/24 06:24 Dose: 600 mg Insulin Glargine (Insulin Glargine,Hum.Rec.Anlog 100 Unit/Ml 10 Ml Vial) 10 unit SUBCUT BEDTIME [facility] Last Admin: 11/07/24 20:43 Dose: 10 unit Insulin Human Lispro (Insulin Lispro 100 Unit/Ml 3 Ml Vial) 0 unit SUBCUT BID [facility]; Protocol Last Admin: 11/07/24 20:19 Dose: Not Given Lactase (Lactase Tablet) 1 tab PO Q6H PRN PRN Reason: dairy meal or snack Last Admin: 11/06/24 16:58 Dose: 1 tab Lactic Acid (Ammonium Lactate 12 % Cream 140 Gm Tube) 1 appl TOPICAL BEDTIME [facility]; Protocol Last Admin: 11/07/24 22:04 Dose: Not Given Latanoprost (Latanoprost 0.005 % Ophth Mini 2.5 Ml Drops) 2 drop EYE-BOTH BEDTIME [facility] Last Admin: 11/07/24 20:38 Dose: 2 drop Lidocaine (Lidocaine 4 % Patch Adh..Patch) 1 patch TRANSDERMA DAILY PRN; Protocol PRN Reason: musculoskeletal pain Last Admin: 11/06/24 09:10 Dose: 1 patch Loratadine (Loratadine 10 Mg Tablet) 10 mg PO DAILY [facility] Last Admin: 11/07/24 08:42 Dose: 10 mg Magnesium Hydroxide (Milk Of Magnesia 30 Ml Oral.Susp) 30 ml PO DAILY PRN PRN Reason: Constipation Metformin HCl (Metformin Hcl Er 500 Mg Tab.Er.24h) 1,000 mg PO BEDTIME [facility] Last Admin: 11/07/24 20:31 Dose: 1,000 mg Multivitamins/Vitamin C (Multivitamin Tablet) 1 tab PO DAILY [facility] Last Admin: 11/07/24 08:42 Dose: 1 tab Nicotine Polacrilex (Nicotine Polacrilex 2 Mg Gum) 4 mg BUCCAL Q2H PRN PRN Reason: Nicotine Cravings Olanzapine (Olanzapine 5 Mg Tablet) 5 mg PO TID PRN PRN Reason: agitation Omeprazole (Omeprazole 20 Mg Capsule.Dr) 20 mg PO BID@0630,1630 [facility] Last Admin: 11/08/24 06:17 Dose: 20 mg Ondansetron HCl (Ondansetron Odt 4 Mg Tab.Rapdis) 4 mg TRANSLINGU Q6H PRN PRN Reason: Nausea Prazosin HCl (Prazosin Hcl 1 Mg Capsule) 2 mg PO BEDTIME [facility]; Protocol Last Admin: 11/07/24 20:30 Dose: 2 mg Prazosin HCl (Prazosin Hcl 5 Mg Capsule) 5 mg PO BEDTIME [facility]; Protocol Last Admin: 11/07/24 20:32 Dose: 5 mg Quetiapine Fumarate (Quetiapine Fumarate 25 Mg Tablet) 25 mg PO Q6H PRN PRN Reason: moderate Anxiety Last Admin: 11/07/24 10:33 Dose: 25 mg Quetiapine Fumarate (Quetiapine Fumarate 400 Mg Tablet) 400 mg PO BEDTIME [facility] Last Admin: 11/07/24 20:33 Dose: 400 mg Sitagliptin Phosphate (Sitagliptin Phosphate 100 Mg Tablet) 100 mg PO DAILY [facility] Last Admin: 11/07/24 08:42 Dose: 100 mg Sodium Chloride (Sodium Chloride 0.65 % Nasal 44 Ml Sprbtl) 1 spray NOSTRIL-B Q1H PRN PRN Reason: nasal congestion Last Admin: 11/07/24 20:37 Dose: 1 spray Tiotropium [place] (Tiotropium [place]ens 2.5 Mcg 1 Puff/2.5 Mcg Mist.Inhal) 2 puff INHALE RDAILY [facility] Last Admin: 11/07/24 08:50 Dose: 2 puff Trazodone HCl (Trazodone Hcl 50 Mg Tablet) 50 mg PO BEDTIME [facility]X1 PRN PRN Reason: Insomnia Trazodone HCl (Trazodone Hcl 100 Mg Tablet) 200 mg PO BEDTIME [facility] Last Admin: 11/07/24 20:33 Dose: 200 mg Trolamine Salicylate (Trolamine Salicylate 10 % Cream 85 Gm Tube) 1 appl TOPICAL TID PRN; Protocol PRN Reason: rib pain Last Admin: 11/07/24 20:37 Dose: 1 appl Vitamin D (Cholecalciferol (Vitamin D3) 25 Mcg Tablet) 25 mcg PO DAILY [facility] Last Admin: 11/07/24 08:42 Dose: 25 mcg Home Medications ?Medication ?Instructions ?Recorded ?Confirmed ?Last Taken ?Type umeclidinium 62.5 mcg/actuation 1 inh inhalation DAILY 08/01/21 11/04/24 11/04/24 08:00 History blister powder for inhalation (Incruse Ellipta) cholecalciferol (vitamin D3) 25 25 mcg PO DAILY 12/19/22 11/04/24 11/04/24 08:00 History mcg (1,000 unit) tablet docusate sodium 100 mg capsule 200 mg PO DAILY 12/19/22 11/04/24 11/04/24 08:00 History gabapentin 400 mg capsule 400 mg PO TID 12/19/22 11/04/24 08/15/24 09:00 History metformin 500 mg tablet,extended 1,000 mg PO BEDTIME 12/19/22 11/04/24 11/03/24 20:00 History release 24 hr pantoprazole 40 mg tablet,delayed 40 mg PO BID@0630,1630 12/19/22 11/04/24 08/15/24 09:00 History release fluticasone propionate 50 2 spray intranasal BID 12/20/22 11/04/24 11/04/24 08:00 History mcg/actuation nasal spray,suspension ferrous sulfate 325 mg (65 mg 325 mg PO BEDTIME 03/10/24 11/04/24 11/03/24 20:00 History iron) tablet (FeroSul) sitagliptin phosphate 100 mg 100 mg PO DAILY 03/10/24 11/04/24 11/04/24 08:00 History tablet (Januvia) Lactobacillus rhamnosus GG 15 1 cap PO DAILY 08/16/24 11/04/24 11/04/24 08:00 History billion cell sprinkle capsule (Culturelle) albuterol sulfate 90 mcg/actuation 2 puff inhalation Q6H PRN Wheezing 08/16/24 11/04/24 Unknown History aerosol inhaler (Ventolin HFA) ammonium lactate 12 % topical cream 1 appl topical BEDTIME 08/16/24 11/04/24 11/03/24 20:00 History budesonide-formoterol HFA 160 2 puff inhalation BID 08/16/24 11/04/24 11/04/24 08:00 History mcg-4.5 mcg/actuation aerosol inhaler carbamazepine 200 mg 600 mg PO BID 08/16/24 11/04/24 11/04/24 08:00 History tablet,extended release,12 hr cyclobenzaprine 7.5 mg tablet 7.5 mg PO BEDTIME 08/16/24 11/04/24 Unknown History dicyclomine 10 mg capsule 10 mg PO Q6H PRN Abdominal Pain 08/16/24 11/04/24 Unknown History famotidine 40 mg tablet 40 mg PO BID 08/16/24 11/04/24 11/04/24 08:00 History insulin glargine 100 unit/mL (3 10 unit subcut BEDTIME 08/16/24 11/04/24 11/03/24 20:00 History mL) subcutaneous pen (Lantus Solostar U-100 Insulin) ipratropium 0.5 mg-albuterol 3 mg 3 ml inhalation BID Shortness Of 08/16/24 11/04/24 Unknown History (2.5 mg base)/3 mL nebulization Breath soln latanoprost 0.005 % eye drops 2 drp ophthalmic (eye) BEDTIME 08/16/24 11/04/24 Unknown History lidocaine 4 % topical patch 1 patch topical DAILY 08/16/24 11/04/24 Unknown History (Lidocaine Pain Relief) prazosin 2 mg capsule 2 mg PO BEDTIME 08/16/24 11/04/24 11/03/24 20:00 History quetiapine 200 mg tablet 400 mg PO BEDTIME 08/16/24 11/04/24 11/03/24 20:00 History quetiapine 50 mg tablet 25 mg PO Q8H PRN Anxiety 08/16/24 11/04/24 Unknown History acetaminophen 500 mg tablet 1,000 mg PO Q8H PRN pain/fever 11/04/24 11/04/24 Unknown History calcium carbonate (Tums Ultra) 400 mg PO Q8H PRN Indigestion 11/04/24 11/04/24 Unknown History camphor-menthol 11 %-10 % topical 1 appl topical Q6H PRN body pain 11/04/24 11/04/24 Unknown History cream ([place] Exira) carboxymethylcellulose sodium 1 % 2 drp ophthalmic (eye) QID 11/04/24 11/04/24 Unknown History eye liquid gel drops cetirizine 10 mg tablet 10 mg PO DAILY 11/04/24 11/04/24 11/04/24 History fluoride (sodium) 1.1 % dental 1 appl dental BID 11/04/24 11/04/24 Unknown History paste (PreviDent 5000 Dry Mouth) guaifenesin 200 mg/5 mL oral liquid 400 mg PO Q6H PRN Cough 11/04/24 11/04/24 Unknown History ibuprofen 600 mg tablet 600 mg PO Q6H PRN fever or pain 11/04/24 11/04/24 Unknown History lactase 3,000 unit tablet 6,000 unit PO Q6H PRN dairy meal 11/04/24 11/04/24 Unknown History or snack ondansetron 4 mg disintegrating 4 mg PO Q8H PRN Nausea 11/04/24 11/04/24 Unknown History tablet Physical Exam 2 Vital Signs and Narrative: Vital Signs: Last Vital Signs Temp 97.6 F 11/08/24 07:25 Pulse 90 11/08/24 07:25 Resp 12 11/08/24 07:25 BP 121/60 11/08/24 07:25 Pulse Ox 96 11/08/24 07:25 O2 Del Method Room Air 11/08/24 07:25 BMI result Body Mass Index 26.6 General: AOx3, no acute distress Resp: CTA bilaterally. No wheezing, rhonchi, or rales. CVS: S1, S2, RRR GI: +BS, NT, no distention Skin: Warm, dry Neuro: Cranial nerves II-XII grossly intact bilaterally. Motor grossly intact bilaterally Extremities: No edema Psych: Appears anxious, somatically oriented Results Labs 11/04/24 19:55 11/05/24 07:56 Labs: Laboratory Results - last 24 hr 11/07/24 11/08/24 20:12 07:21 POC Glucose 115 109 Assessment and Plan (1) Chest tightness: Status: Acute Plan Pt is a 54 year old female with a PMH significant for asthma, insulin-dependent type 2 diabetes, GERD, IRINA on CPAP, and mood disorder currently living in a care home who was admitted [facility] for increased depression with SI with plan to stab herself with sisters were jump out of a window. Medical consult for chronic lung disease. Chest tightness/difficulty breathing Pt woke from sleep last night with difficulty breathing, complains of chest tightness, worried about having pneumonia CXR from 11/06 negative for consolidation or active pulmonary disease Vitals reassuring: No fever, tachycardia, tachypnea, or hypoxia Physical exam reassuring: Lungs CTA without wheezing, rales, or rhonchi; no cough noted during interview or exam Pt appears somatically oriented in symptoms likely secondary to anxiety Pt offered reassurance Continue home inhalers No indication for additional medical treatment or workup at this time Continue CPAP at night for IRINA Treat underlying anxiety Subclinical hypothyroidism Patient's TSH elevated at 7.51, free T4 low normal at 0.71 No indication for treatment at this time Needs to follow-up with PCP for repeat labs in 1-3 months time Thank you for allowing us to participate in the care of this patient. Signing off at this time. Please re-consult if any acute complaints or issues arise.
[2024-11-08] MEDS: SITagliptin Phosphate 100 MG TABLET PO (09:14)
[2024-11-08] MEDS: Docusate Sodium 100 MG CAPSULE 200 MG PO (09:14)
[2024-11-08] MEDS: Gabapentin 400 MG CAPSULE PO ×3 (09:14→21:05)
[2024-11-08] MEDS: carBAMazepine ER 200 MG TAB.ER.12H 600 MG PO ×2 (09:14→21:03)
[2024-11-08] MEDS: Famotidine 20 MG TABLET 40 MG PO ×2 (09:14→21:01)
[2024-11-08] MEDS: Loratadine 10 MG TABLET PO (09:15)
[2024-11-08] MEDS: Fluticasone Propionate Nasal 16 GM SPRAY 2 SPRAY NOSTRIL-B ×2 (09:15→21:08)
[2024-11-08] MEDS: Cholecalciferol (Vitamin D3) 25 MCG TABLET PO (09:15)
[2024-11-08] MEDS: Multivitamin TABLET 1 TAB PO (09:15)
[2024-11-08] MEDS: Artificial Tears 15 ML DROPS 2 DROP EYE-BOTH ×3 (09:16→17:01)
[2024-11-08] MEDS: Tiotropium Bromide 2.5 mcg 1 PUFF/2.5 MCG MIST.INHAL 2 PUFF INHALE (09:16)
[2024-11-08] MEDS: Fluticasone/Vilanterol 200/25 BLST.W.DEV 1 PUFF INHALE (09:20)
[2024-11-08 18:00] VITALS: TEMP 37.2
[2024-11-08 20:00] VITALS: BP 137/78; PULSE 98; RESP 18; TEMP 36.9; O2SAT 97
[2024-11-08] MEDS: hydrOXYzine HCL 50 MG TABLET 100 MG PO (21:01)
[2024-11-08 21:02] VITALS: BP 137/78
[2024-11-08] MEDS: Prazosin HCL 5 MG CAPSULE PO (21:02)
[2024-11-08] MEDS: traZODone HCL 100 MG TABLET 200 MG PO (21:02)
[2024-11-08] MEDS: Ferrous Sulfate 324 MG TABLET.DR PO (21:02)
[2024-11-08] MEDS: Cyclobenzaprine HCl 5 MG TABLET 7.5 MG PO (21:03)
[2024-11-08 21:04] VITALS: BP 137/78
[2024-11-08] MEDS: Prazosin HCL 1 MG CAPSULE 2 MG PO (21:04)
[2024-11-08] MEDS: QUEtiapine Fumarate 400 MG TABLET PO (21:05)
[2024-11-08] MEDS: metFORMIN HCl ER 500 MG TAB.ER.24H 1000 MG PO (21:05)
[2024-11-08] MEDS: Trolamine Salicylate 10 % Cream 85 GM TUBE 1 APPL TOPICAL (21:08)
[2024-11-08] MEDS: Sodium Chloride 0.65 % Nasal 44 ML SPRBTL 1 SPRAY NOSTRIL-B (21:09)
[2024-11-08] MEDS: Insulin Glargine,Hum.rec.anlog 100 UNIT/ML 10 ML VIAL 10 UNIT SUBCUT (21:19)
[2024-11-08 21:21] LABS: Glucose, Whole Blood 125 mg/dL (60-115)
--- NOTE | 2024-11-08 22:28 | P.PNPSI_ITS ---
Subjective Subjective Date of Service: 11/08/24 Reason For Visit: Decompensation Subjective Notes: Conditional Voluntary Interim History: Pt slept through the night. She presents with numerous of somatic concerns, feels is not being heard. reports rib pain, thinks fracture ribs, but xray is negative. reports she is ready to be d/c next week. No SI/HI. visible on the unit. in no visible physical distress. Review of Systems Review of Systems Negative except for that which is stated in the HPI. Mental Status Exam Mental Status Exam Narrative: appropriately dressed and groomed; hair dyed bright red. cooperative. no PMA/PMR. speech nml rate, incr amount, nml loudness, nml tone, nml latency. thoughts linear and logical. affect constricted, normo-intense, non-labile, consistent with content of speech. mood anxious. + SI/SIBI. no HI/AVH. Diagnostics Vital Signs (24Hr): Vital Signs - 24 hr 11/08/24 07:25 11/08/24 18:00 11/08/24 21:02 Temperature 97.6 F 99 F Pulse Rate 90 Respiratory Rate 12 Blood Pressure 121/60 137/78 Pulse Oximetry 96 Oxygen Delivery Method Room Air 11/08/24 21:04 Temperature Pulse Rate Respiratory Rate Blood Pressure 137/78 Pulse Oximetry Oxygen Delivery Method BMI result Body Mass Index 26.6 Labs 11/04/24 19:55 11/05/24 07:56 Labs: Laboratory Results - last 48 hr 11/07/24 11/07/24 11/08/24 08:00 20:12 07:21 POC Glucose 99 115 109 11/08/24 20:59 POC Glucose 125 H Imaging Radiology Impressions: ITS Impressions Ribs w/Chest X-Ray 11/06/24 11:00 IMPRESSION: No acute bony abnormalities. No active pulmonary disease. Electronically signed by: Andrey Carroll MD 11/06/2024 11:35 AM EDT Medications Medications Current Medications Acetaminophen (Acetaminophen 325 Mg Tablet) 975 mg PO Q8H PRN PRN Reason: Fever Or Pain (scale 1-10) Last Admin: 11/07/24 12:48 Dose: 975 mg Al Hydroxide/Mg Hydroxide (Magnesium Hydrox/Alum Hydrox 30 Ml Oral.Susp) 30 ml PO Q6H PRN PRN Reason: Heartburn/Nausea Albuterol Sulfate (Albuterol Sulfate 90 Mcg 8 Gm Inhaler) 2 puff INHALE Q4H PRN PRN Reason: Shortness of Breath Last Admin: 11/08/24 20:57 Dose: 2 puff Albuterol/Ipratropium (Albuterol/Iprat 2.5/0.5mg 3 Ml Ampul.Neb) 3 ml INHALE BID [facility] Last Admin: 11/08/24 21:52 Dose: Not Given Artificial Tears (Artificial Tears 15 Ml Drops) 2 drop EYE-BOTH QID [facility] Last Admin: 11/08/24 21:52 Dose: Not Given Carbamazepine (Carbamazepine Er 200 Mg Tab.Er.12h) 600 mg PO BID [facility] Last Admin: 11/08/24 21:03 Dose: 600 mg Cyclobenzaprine HCl (Cyclobenzaprine Hcl 5 Mg Tablet) 7.5 mg PO BEDTIME [facility] Last Admin: 11/08/24 21:03 Dose: 7.5 mg Dextrose (Dextrose 50 % 25 Gm/50 Ml Syringe) 25 gm IVPUSH Q15M PRN; Protocol PRN Reason: per Hypoglycemia Standing Ord. Dicyclomine HCl (Dicyclomine Hcl 10 Mg Capsule) 10 mg PO Q6H PRN PRN Reason: Abdominal Pain Docusate Sodium (Docusate Sodium 100 Mg Capsule) 200 mg PO DAILY [facility] Last Admin: 11/08/24 09:14 Dose: 200 mg Famotidine (Famotidine 20 Mg Tablet) 40 mg PO BID [facility] Last Admin: 11/08/24 21:01 Dose: 40 mg Ferrous Sulfate (Ferrous Sulfate 324 Mg Tablet.Dr) 324 mg PO BEDTIME [facility] Last Admin: 11/08/24 21:02 Dose: 324 mg Fluticasone Propionate (Fluticasone Propionate Nasal 16 Gm [place]) 2 spray NOSTRIL-B BID [facility] Last Admin: 11/08/24 21:08 Dose: 2 spray Fluticasone/Vilanterol (Fluticasone/Vilanterol 200/25 Blst.W.Dev) 1 puff INHALE RDAILY [facility] Last Admin: 11/08/24 09:20 Dose: 1 puff Gabapentin (Gabapentin 400 Mg Capsule) 400 mg PO TID [facility] Last Admin: 11/08/24 21:05 Dose: 400 mg Glucose (Glucose Gel 15 Gm Gel..Gram.) 15 gm PO Q15M PRN; Protocol PRN Reason: per Hypoglycemia Standing Ord. Hydroxyzine HCl (Hydroxyzine Hcl 50 Mg Tablet) 100 mg PO TID PRN PRN Reason: mild anxiety Last Admin: 11/07/24 10:33 Dose: 100 mg Hydroxyzine HCl (Hydroxyzine Hcl 50 Mg Tablet) 100 mg PO BEDTIME [facility] Last Admin: 11/08/24 21:01 Dose: 100 mg Ibuprofen (Ibuprofen 600 Mg Tablet) 600 mg PO TID PRN PRN Reason: fever or pain Last Admin: 11/08/24 21:05 Dose: 600 mg Insulin Glargine (Insulin Glargine,Hum.Rec.Anlog 100 Unit/Ml 10 Ml Vial) 10 unit SUBCUT BEDTIME [facility] Last Admin: 11/08/24 21:19 Dose: 10 unit Insulin Human Lispro (Insulin Lispro 100 Unit/Ml 3 Ml Vial) 0 unit SUBCUT BID [facility]; Protocol Last Admin: 11/08/24 21:10 Dose: Not Given Lactase (Lactase Tablet) 1 tab PO Q6H PRN PRN Reason: dairy meal or snack Last Admin: 11/06/24 16:58 Dose: 1 tab Lactic Acid (Ammonium Lactate 12 % Cream 140 Gm Tube) 1 appl TOPICAL BEDTIME [facility]; Protocol Last Admin: 11/08/24 21:13 Dose: Not Given Latanoprost (Latanoprost 0.005 % Ophth Mini 2.5 Ml Drops) 2 drop EYE-BOTH BEDTIME [facility] Last Admin: 11/08/24 21:14 Dose: Not Given Lidocaine (Lidocaine 4 % Patch Adh..Patch) 1 patch TRANSDERMA DAILY PRN; Protocol PRN Reason: musculoskeletal pain Last Admin: 11/06/24 09:10 Dose: 1 patch Loratadine (Loratadine 10 Mg Tablet) 10 mg PO DAILY [facility] Last Admin: 11/08/24 09:15 Dose: 10 mg Magnesium Hydroxide (Milk Of Magnesia 30 Ml Oral.Susp) 30 ml PO DAILY PRN PRN Reason: Constipation Metformin HCl (Metformin Hcl Er 500 Mg Tab.Er.24h) 1,000 mg PO BEDTIME [facility] Last Admin: 11/08/24 21:05 Dose: 1,000 mg Multivitamins/Vitamin C (Multivitamin Tablet) 1 tab PO DAILY [facility] Last Admin: 11/08/24 09:15 Dose: 1 tab Nicotine Polacrilex (Nicotine Polacrilex 2 Mg Gum) 4 mg BUCCAL Q2H PRN PRN Reason: Nicotine Cravings Olanzapine (Olanzapine 5 Mg Tablet) 5 mg PO TID PRN PRN Reason: agitation Omeprazole (Omeprazole 20 Mg Capsule.Dr) 20 mg PO BID@0630,1630 [facility] Last Admin: 11/08/24 15:36 Dose: 20 mg Ondansetron HCl (Ondansetron Odt 4 Mg Tab.Rapdis) 4 mg TRANSLINGU Q6H PRN PRN Reason: Nausea Prazosin HCl (Prazosin Hcl 1 Mg Capsule) 2 mg PO BEDTIME [facility]; Protocol Last Admin: 11/08/24 21:04 Dose: 2 mg Prazosin HCl (Prazosin Hcl 5 Mg Capsule) 5 mg PO BEDTIME [facility]; Protocol Last Admin: 11/08/24 21:02 Dose: 5 mg Quetiapine Fumarate (Quetiapine Fumarate 25 Mg Tablet) 25 mg PO Q6H PRN PRN Reason: moderate Anxiety Last Admin: 11/07/24 10:33 Dose: 25 mg Quetiapine Fumarate (Quetiapine Fumarate 400 Mg Tablet) 400 mg PO BEDTIME [facility] Last Admin: 11/08/24 21:05 Dose: 400 mg Sitagliptin Phosphate (Sitagliptin Phosphate 100 Mg Tablet) 100 mg PO DAILY [facility] Last Admin: 11/08/24 09:14 Dose: 100 mg Sodium Chloride (Sodium Chloride 0.65 % Nasal 44 Ml Sprbtl) 1 spray NOSTRIL-B Q1H PRN PRN Reason: nasal congestion Last Admin: 11/08/24 21:09 Dose: 1 spray Tiotropium Lena (Tiotropium [place] 2.5 Mcg 1 Puff/2.5 Mcg Mist.Inhal) 2 puff INHALE RDAILY [facility] Last Admin: 11/08/24 09:16 Dose: 2 puff Trazodone HCl (Trazodone Hcl 50 Mg Tablet) 50 mg PO BEDTIME [facility] PRN PRN Reason: Insomnia Trazodone HCl (Trazodone Hcl 100 Mg Tablet) 200 mg PO BEDTIME [facility] Last Admin: 11/08/24 21:02 Dose: 200 mg Trolamine Salicylate (Trolamine Salicylate 10 % Cream 85 Gm Tube) 1 appl TOPICAL TID PRN; Protocol PRN Reason: rib pain Last Admin: 11/08/24 21:08 Dose: 1 appl Vitamin D (Cholecalciferol (Vitamin D3) 25 Mcg Tablet) 25 mcg PO DAILY [facility] Last Admin: 11/08/24 09:15 Dose: 25 mcg Allergies Allergies Allergy/AdvReac Type Severity Reaction Status Date / Time sulfamethoxazole Allergy Intermediate Rash Verified 11/04/24 17:42 [From Bactrim] trimethoprim [From Bactrim] Allergy Intermediate Rash Verified 11/04/24 17:42 adhesive tape Allergy Rash Verified 11/04/24 17:42 [place] And Derivatives Allergy Gastrointestinal Verified 11/04/24 17:42 Upset Benzodiazepines AdvReac Intermediate Hives Verified 11/04/24 17:42 diazepam [From Valium] AdvReac Intermediate Irritable Verified 11/04/24 17:42 Assessment & Plan Assessment & Plan (1) Bipolar disorder: Status: Acute Code(s): F31.9 - Bipolar disorder, unspecified (2) Suicidal ideation: Status: Acute Code(s): R45.851 - Suicidal ideations (3) Diabetes mellitus, type 2: Status: Acute Code(s): E11.9 - Type 2 diabetes mellitus without complications (4) Sleep apnea: Status: Acute Code(s): G47.30 - Sleep apnea, unspecified Plan 11/05: continue home meds. supportive care. dispo planning. 11/06: change POC to BID, add nasal moistening spray, add aspercreme for rib pain, restart asthma inhalers - pt to obtain from her [facility], check CXR for ribs pain. otherwise continue current mgmt. do NOT give ativan. 11/07 continue tx. cepacol ordered. 11/08 continue tx. Reason for continued inpatient stay Substantial Risk for: inability to function Time Spent With Patient Time: Total time managing care of this patient today ____ minutes.
[2024-11-09] MEDS: Omeprazole 20 MG CAPSULE.DR PO ×2 (06:52→16:15)
[2024-11-09 07:54] LABS: Glucose, Whole Blood 109 mg/dL (60-115)
[2024-11-09 07:59] VITALS: BP 132/76; PULSE 80; RESP 14; TEMP 36.4; O2SAT 96
[2024-11-09] MEDS: Famotidine 20 MG TABLET 40 MG PO ×2 (08:26→21:24)
[2024-11-09] MEDS: Ibuprofen 600 MG TABLET PO (08:27)
[2024-11-09] MEDS: Docusate Sodium 100 MG CAPSULE 200 MG PO (08:27)
[2024-11-09] MEDS: Loratadine 10 MG TABLET PO (08:27)
[2024-11-09] MEDS: Cholecalciferol (Vitamin D3) 25 MCG TABLET PO (08:28)
[2024-11-09] MEDS: carBAMazepine ER 200 MG TAB.ER.12H 600 MG PO ×2 (08:28→21:23)
[2024-11-09] MEDS: SITagliptin Phosphate 100 MG TABLET PO (08:28)
[2024-11-09] MEDS: Gabapentin 400 MG CAPSULE PO ×3 (08:29→21:24)
[2024-11-09] MEDS: Multivitamin TABLET 1 TAB PO (08:29)
[2024-11-09] MEDS: Fluticasone Propionate Nasal 16 GM SPRAY 2 SPRAY NOSTRIL-B ×2 (08:30→21:39)
[2024-11-09] MEDS: QUEtiapine Fumarate 25 MG TABLET PO ×2 (08:34→15:06)
[2024-11-09] MEDS: Tiotropium Bromide 2.5 mcg 1 PUFF/2.5 MCG MIST.INHAL 2 PUFF INHALE (08:35)
[2024-11-09] MEDS: hydrOXYzine HCL 50 MG TABLET 100 MG PO ×3 (08:35→21:25)
[2024-11-09] MEDS: Fluticasone/Vilanterol 200/25 BLST.W.DEV 1 PUFF INHALE (08:35)
[2024-11-09 08:50] VITALS: PULSE 86; RESP 18; O2SAT 99
[2024-11-09] MEDS: Albuterol/Iprat 2.5/0.5MG 3 ML AMPUL.NEB INHALE ×2 (08:50→21:34)
[2024-11-09] MEDS: Artificial Tears 15 ML DROPS 2 DROP EYE-BOTH ×2 (12:46→21:39)
[2024-11-09] MEDS: Throat Lozenge, Medicated LOZENGE 1 LOZENGE MUCOUS MEM ×2 (13:22→20:11)
[2024-11-09] MEDS: Albuterol Sulfate 90 MCG 8 GM INHALER 2 PUFF INHALE (18:22)
[2024-11-09 19:35] VITALS: BP 143/86; PULSE 95; RESP 16; TEMP 36.7; O2SAT 96
--- NOTE | 2024-11-09 20:34 | P.PNPSI_ITS ---
Subjective Subjective Date of Service: 11/09/24 Reason For Visit: Decompensation Interim History: Pt slept through the night. She presents with numerous of somatic concerns, feels is not being heard. reports rib pain, thinks fracture ribs, but xray is negative. reports she is ready to be d/c next week. No SI/HI. visible on the unit. in no visible physical distress. Review of Systems Review of Systems Negative except for that which is stated in the HPI. Mental Status Exam Mental Status Exam Narrative: appropriately dressed and groomed; hair dyed bright red. cooperative. no PMA/PMR. speech nml rate, incr amount, nml loudness, nml tone, nml latency. thoughts linear and logical. affect constricted, normo-intense, non-labile, consistent with content of speech. mood anxious. + SI/SIBI. no HI/AVH. Diagnostics Vital Signs (24Hr): Vital Signs - 24 hr 11/08/24 21:02 11/08/24 21:04 11/09/24 07:59 Temperature 97.6 F Pulse Rate 80 Respiratory Rate 14 Blood Pressure 137/78 137/78 132/76 Pulse Oximetry 96 Oxygen Delivery Method Room Air 11/09/24 08:50 11/09/24 19:35 Temperature 98.1 F Pulse Rate 86 95 Respiratory Rate 18 16 Blood Pressure 143/86 H Pulse Oximetry 96 Oxygen Delivery Method Room Air BMI result Body Mass Index 26.6 Labs 11/04/24 19:55 11/05/24 07:56 Labs: Laboratory Results - last 48 hr 11/08/24 11/08/24 11/09/24 07:21 20:59 07:48 POC Glucose 109 125 H 109 Imaging Radiology Impressions: ITS Impressions Ribs w/Chest X-Ray 11/06/24 11:00 IMPRESSION: No acute bony abnormalities. No active pulmonary disease. Electronically signed by: Andrey Carroll MD 11/06/2024 11:35 AM EDT Medications Medications Current Medications Acetaminophen (Acetaminophen 325 Mg Tablet) 975 mg PO Q8H PRN PRN Reason: Fever Or Pain (scale 1-10) Last Admin: 11/07/24 12:48 Dose: 975 mg Al Hydroxide/Mg Hydroxide (Magnesium Hydrox/Alum Hydrox 30 Ml Oral.Susp) 30 ml PO Q6H PRN PRN Reason: Heartburn/Nausea Albuterol Sulfate (Albuterol Sulfate 90 Mcg 8 Gm Inhaler) 2 puff INHALE Q4H PRN PRN Reason: Shortness of Breath Last Admin: 11/09/24 18:22 Dose: 2 puff Albuterol/Ipratropium (Albuterol/Iprat 2.5/0.5mg 3 Ml Ampul.Neb) 3 ml INHALE BID [facility] Last Admin: 11/09/24 08:50 Dose: 3 ml Artificial Tears (Artificial Tears 15 Ml Drops) 2 drop EYE-BOTH QID [facility] Last Admin: 11/09/24 16:18 Dose: Not Given Benzocaine (Throat Lozenge, Medicated Lozenge) 1 lozenge MUCOUS MEM Q4H PRN PRN Reason: Sore Throat Last Admin: 11/09/24 20:11 Dose: 1 lozenge Carbamazepine (Carbamazepine Er 200 Mg Tab.Er.12h) 600 mg PO BID [facility] Last Admin: 11/09/24 08:28 Dose: 600 mg Cyclobenzaprine HCl (Cyclobenzaprine Hcl 5 Mg Tablet) 7.5 mg PO BEDTIME [facility] Last Admin: 11/08/24 21:03 Dose: 7.5 mg Dextrose (Dextrose 50 % 25 Gm/50 Ml Syringe) 25 gm IVPUSH Q15M PRN; Protocol PRN Reason: per Hypoglycemia Standing Ord. Dicyclomine HCl (Dicyclomine Hcl 10 Mg Capsule) 10 mg PO Q6H PRN PRN Reason: Abdominal Pain Docusate Sodium (Docusate Sodium 100 Mg Capsule) 200 mg PO DAILY [facility] Last Admin: 11/09/24 08:27 Dose: 200 mg Famotidine (Famotidine 20 Mg Tablet) 40 mg PO BID [facility] Last Admin: 11/09/24 08:26 Dose: 40 mg Ferrous Sulfate (Ferrous Sulfate 324 Mg Tablet.Dr) 324 mg PO BEDTIME [facility] Last Admin: 11/08/24 21:02 Dose: 324 mg Fluticasone Propionate (Fluticasone Propionate Nasal 16 Gm [place]) 2 spray NOSTRIL-B BID [facility] Last Admin: 11/09/24 08:30 Dose: 2 spray Fluticasone/Vilanterol (Fluticasone/Vilanterol 200/25 Blst.W.Dev) 1 puff INHALE RDAILY [facility] Last Admin: 11/09/24 08:35 Dose: 1 puff Gabapentin (Gabapentin 400 Mg Capsule) 400 mg PO TID [facility] Last Admin: 11/09/24 15:06 Dose: 400 mg Glucose (Glucose Gel 15 Gm Gel..Gram.) 15 gm PO Q15M PRN; Protocol PRN Reason: per Hypoglycemia Standing Ord. Hydroxyzine HCl (Hydroxyzine Hcl 50 Mg Tablet) 100 mg PO TID PRN PRN Reason: mild anxiety Last Admin: 11/09/24 12:46 Dose: 100 mg Hydroxyzine HCl (Hydroxyzine Hcl 50 Mg Tablet) 100 mg PO BEDTIME [facility] Last Admin: 11/08/24 21:01 Dose: 100 mg Ibuprofen (Ibuprofen 600 Mg Tablet) 600 mg PO TID PRN PRN Reason: fever or pain Last Admin: 11/09/24 08:27 Dose: 600 mg Insulin Glargine (Insulin Glargine,Hum.Rec.Anlog 100 Unit/Ml 10 Ml Vial) 10 unit SUBCUT BEDTIME [facility] Last Admin: 11/08/24 21:19 Dose: 10 unit Insulin Human Lispro (Insulin Lispro 100 Unit/Ml 3 Ml Vial) 0 unit SUBCUT BID [facility]; Protocol Last Admin: 11/09/24 09:12 Dose: Not Given Lactase (Lactase Tablet) 1 tab PO Q6H PRN PRN Reason: dairy meal or snack Last Admin: 11/06/24 16:58 Dose: 1 tab Lactic Acid (Ammonium Lactate 12 % Cream 140 Gm Tube) 1 appl TOPICAL BEDTIME [facility]; Protocol Last Admin: 11/08/24 21:13 Dose: Not Given Latanoprost (Latanoprost 0.005 % Ophth Mini 2.5 Ml Drops) 2 drop EYE-BOTH BEDTIME [facility] Last Admin: 11/08/24 21:14 Dose: Not Given Lidocaine (Lidocaine 4 % Patch Adh..Patch) 1 patch TRANSDERMA DAILY PRN; Protocol PRN Reason: musculoskeletal pain Last Admin: 11/06/24 09:10 Dose: 1 patch Loratadine (Loratadine 10 Mg Tablet) 10 mg PO DAILY [facility] Last Admin: 11/09/24 08:27 Dose: 10 mg Magnesium Hydroxide (Milk Of Magnesia 30 Ml Oral.Susp) 30 ml PO DAILY PRN PRN Reason: Constipation Metformin HCl (Metformin Hcl Er 500 Mg Tab.Er.24h) 1,000 mg PO BEDTIME [facility] Last Admin: 11/08/24 21:05 Dose: 1,000 mg Multivitamins/Vitamin C (Multivitamin Tablet) 1 tab PO DAILY [facility] Last Admin: 11/09/24 08:29 Dose: 1 tab Nicotine Polacrilex (Nicotine Polacrilex 2 Mg Gum) 4 mg BUCCAL Q2H PRN PRN Reason: Nicotine Cravings Olanzapine (Olanzapine 5 Mg Tablet) 5 mg PO TID PRN PRN Reason: agitation Omeprazole (Omeprazole 20 Mg Capsule.Dr) 20 mg PO BID@0630,1630 [facility] Last Admin: 11/09/24 16:15 Dose: 20 mg Ondansetron HCl (Ondansetron Odt 4 Mg Tab.Rapdis) 4 mg TRANSLINGU Q6H PRN PRN Reason: Nausea Prazosin HCl (Prazosin Hcl 1 Mg Capsule) 2 mg PO BEDTIME [facility]; Protocol Last Admin: 11/08/24 21:04 Dose: 2 mg Prazosin HCl (Prazosin Hcl 5 Mg Capsule) 5 mg PO BEDTIME [facility]; Protocol Last Admin: 11/08/24 21:02 Dose: 5 mg Quetiapine Fumarate (Quetiapine Fumarate 25 Mg Tablet) 25 mg PO Q6H PRN PRN Reason: moderate Anxiety Last Admin: 11/09/24 15:06 Dose: 25 mg Quetiapine Fumarate (Quetiapine Fumarate 400 Mg Tablet) 400 mg PO BEDTIME [facility] Last Admin: 11/08/24 21:05 Dose: 400 mg Sitagliptin Phosphate (Sitagliptin Phosphate 100 Mg Tablet) 100 mg PO DAILY [facility] Last Admin: 11/09/24 08:28 Dose: 100 mg Sodium Chloride (Sodium Chloride 0.65 % Nasal 44 Ml Sprbtl) 1 spray NOSTRIL-B Q1H PRN PRN Reason: nasal congestion Last Admin: 11/08/24 21:09 Dose: 1 spray Tiotropium [place] (Tiotropium [place] 2.5 Mcg 1 Puff/2.5 Mcg Mist.Inhal) 2 puff INHALE RDAILY [facility] Last Admin: 11/09/24 08:35 Dose: 2 puff Trazodone HCl (Trazodone Hcl 50 Mg Tablet) 50 mg PO BEDTIME MRX1 PRN PRN Reason: Insomnia Trazodone HCl (Trazodone Hcl 100 Mg Tablet) 200 mg PO BEDTIME [facility] Last Admin: 11/08/24 21:02 Dose: 200 mg Trolamine Salicylate (Trolamine Salicylate 10 % Cream 85 Gm Tube) 1 appl TOPICAL TID PRN; Protocol PRN Reason: rib pain Last Admin: 11/08/24 21:08 Dose: 1 appl Vitamin D (Cholecalciferol (Vitamin D3) 25 Mcg Tablet) 25 mcg PO DAILY [facility] Last Admin: 11/09/24 08:28 Dose: 25 mcg Allergies Allergies Allergy/AdvReac Type Severity Reaction Status Date / Time sulfamethoxazole Allergy Intermediate Rash Verified 11/04/24 17:42 [From Bactrim] trimethoprim [From Bactrim] Allergy Intermediate Rash Verified 11/04/24 17:42 adhesive tape Allergy Rash Verified 11/04/24 17:42 [place] And Derivatives Allergy Gastrointestinal Verified 11/04/24 17:42 Upset Benzodiazepines AdvReac Intermediate Hives Verified 11/04/24 17:42 diazepam [From Valium] AdvReac Intermediate Irritable Verified 11/04/24 17:42 Assessment & Plan Assessment & Plan (1) Bipolar disorder: Status: Acute Code(s): F31.9 - Bipolar disorder, unspecified (2) Chest tightness: Status: Acute Code(s): R07.89 - Other chest pain (3) Suicidal ideation: Status: Acute Code(s): R45.851 - Suicidal ideations (4) Diabetes mellitus, type 2: Status: Acute Code(s): E11.9 - Type 2 diabetes mellitus without complications (5) Sleep apnea: Status: Acute Code(s): G47.30 - Sleep apnea, unspecified Plan 11/05: continue home meds. supportive care. dispo planning. 11/06: change POC to BID, add nasal moistening spray, add aspercreme for rib pain, restart asthma inhalers - pt to obtain from her retirement, check CXR for ribs pain. otherwise continue current mgmt. do NOT give ativan. 11/07 continue tx. cepacol ordered. 11/08 continue tx. 11/09 continue tx. Reason for continued inpatient stay Substantial Risk for: inability to function Time Spent With Patient Time: Total time managing care of this patient today ____ minutes.
[2024-11-09 20:56] LABS: Glucose, Whole Blood 142 mg/dL (60-115)
[2024-11-09] MEDS: Cyclobenzaprine HCl 5 MG TABLET 7.5 MG PO (21:22)
[2024-11-09] MEDS: Insulin Glargine,Hum.rec.anlog 100 UNIT/ML 10 ML VIAL 10 UNIT SUBCUT (21:23)
[2024-11-09 21:24] VITALS: BP 137/102
[2024-11-09] MEDS: Prazosin HCL 1 MG CAPSULE 2 MG PO (21:24)
[2024-11-09] MEDS: QUEtiapine Fumarate 400 MG TABLET PO (21:25)
[2024-11-09] MEDS: Prazosin HCL 5 MG CAPSULE PO (21:25)
[2024-11-09] MEDS: metFORMIN HCl ER 500 MG TAB.ER.24H 1000 MG PO (21:25)
[2024-11-09] MEDS: traZODone HCL 100 MG TABLET 200 MG PO (21:25)
[2024-11-09] MEDS: Ferrous Sulfate 324 MG TABLET.DR PO (21:25)
[2024-11-09] MEDS: Trolamine Salicylate 10 % Cream 85 GM TUBE 1 APPL TOPICAL (21:39)
[2024-11-09] MEDS: Latanoprost 0.005 % Ophth Sol 2.5 ML DROPS 2 DROP EYE-BOTH (21:39)
[2024-11-09] MEDS: Ammonium Lactate 12 % Cream 140 GM TUBE 1 APPL TOPICAL (21:39)
[2024-11-10] MEDS: hydrOXYzine HCL 50 MG TABLET 100 MG PO ×3 (01:37→20:30)
[2024-11-10] MEDS: QUEtiapine Fumarate 25 MG TABLET PO ×2 (01:37→08:34)
[2024-11-10] MEDS: Omeprazole 20 MG CAPSULE.DR PO ×2 (06:56→17:00)
[2024-11-10 07:40] VITALS: BP 129/84; PULSE 84; RESP 24; TEMP 36.5; O2SAT 97
[2024-11-10 07:46] LABS: Glucose, Whole Blood 121 mg/dL (60-115)
[2024-11-10] MEDS: Tiotropium Bromide 2.5 mcg 1 PUFF/2.5 MCG MIST.INHAL 2 PUFF INHALE (08:27)
[2024-11-10] MEDS: Fluticasone/Vilanterol 200/25 BLST.W.DEV 1 PUFF INHALE (08:28)
[2024-11-10] MEDS: Fluticasone Propionate Nasal 16 GM SPRAY 2 SPRAY NOSTRIL-B ×2 (08:29→20:47)
[2024-11-10] MEDS: Artificial Tears 15 ML DROPS 2 DROP EYE-BOTH ×3 (08:29→20:47)
[2024-11-10] MEDS: Docusate Sodium 100 MG CAPSULE 200 MG PO (08:30)
[2024-11-10] MEDS: Famotidine 20 MG TABLET 40 MG PO ×2 (08:31→20:31)
[2024-11-10] MEDS: Loratadine 10 MG TABLET PO (08:31)
[2024-11-10] MEDS: Gabapentin 400 MG CAPSULE PO ×3 (08:31→20:32)
[2024-11-10] MEDS: SITagliptin Phosphate 100 MG TABLET PO (08:31)
[2024-11-10] MEDS: carBAMazepine ER 200 MG TAB.ER.12H 600 MG PO ×2 (08:32→20:31)
[2024-11-10] MEDS: Ibuprofen 600 MG TABLET PO ×2 (08:32→17:01)
[2024-11-10] MEDS: Multivitamin TABLET 1 TAB PO (08:33)
[2024-11-10] MEDS: Cholecalciferol (Vitamin D3) 25 MCG TABLET PO (08:34)
[2024-11-10] MEDS: Throat Lozenge, Medicated LOZENGE 1 LOZENGE MUCOUS MEM (08:35)
[2024-11-10 09:02] VITALS: PULSE 90; RESP 20; O2SAT 97
[2024-11-10] MEDS: Albuterol/Iprat 2.5/0.5MG 3 ML AMPUL.NEB INHALE ×2 (09:02→21:30)
[2024-11-10] MEDS: Acetaminophen 325 MG TABLET 975 MG PO (09:29)
[2024-11-10] MEDS: OLANZapine 5 MG TABLET PO ×2 (09:30→17:02)
--- NOTE | 2024-11-10 09:43 | HO.PSYCHPN ---
Subjective Subjective Date of Service: 11/10/24 Reason For Visit: Decompensation Interim History: Patient reports feeling anxious and is looking forward to returning home. Patient stated, I'm feeling better and would like to go home this week ; perinatal social worker aware and plans on getting in contact with [facility]. per nursing, slept 8 hours. pt denies SI/HI/VH/AH. denies any issues at this time; focused on discharge. Medication Compliance: Yes Side effects from medications: No Attending Groups: Intermittent Mental Status Exam Mental Status Exam Narrative: Pt is alert and oriented; behavior is cooperative and calm; dressed in casual attire; mood is described as better ; eye contact appropriate; Speech is normal rate, volume and not pressured; thought process is organized; Thought content is on discharge; denies SI/HI/VH/AH. Diagnostics Vital Signs (24Hr): Vital Signs - 24 hr 11/09/24 19:35 11/09/24 21:24 11/10/24 07:40 Temperature 98.1 F 97.7 F Pulse Rate 95 84 Respiratory Rate 16 24 H Blood Pressure 143/86 H 137/102 H 129/84 Pulse Oximetry 96 97 Oxygen Delivery Method Room Air Room Air 11/10/24 09:02 Temperature Pulse Rate 90 Respiratory Rate 20 Blood Pressure Pulse Oximetry Oxygen Delivery Method BMI result Body Mass Index 26.6 Labs 11/04/24 19:55 11/05/24 07:56 Labs: Laboratory Results - last 48 hr 11/08/24 11/09/24 11/09/24 20:59 07:48 20:50 POC Glucose 125 H 109 142 H 11/10/24 07:33 POC Glucose 121 H Imaging Radiology Impressions: ITS Impressions Ribs w/Chest X-Ray 11/06/24 11:00 IMPRESSION: No acute bony abnormalities. No active pulmonary disease. Electronically signed by: Andrey Carroll MD 11/06/2024 11:35 AM EDT RP Medications Medications Current Medications Acetaminophen (Acetaminophen 325 Mg Tablet) 975 mg PO Q8H PRN PRN Reason: Fever Or Pain (scale 1-10) Last Admin: 11/07/24 12:48 Dose: 975 mg Al Hydroxide/Mg Hydroxide (Magnesium Hydrox/Alum Hydrox 30 Ml Oral.Susp) 30 ml PO Q6H PRN PRN Reason: Heartburn/Nausea Albuterol Sulfate (Albuterol Sulfate 90 Mcg 8 Gm Inhaler) 2 puff INHALE Q4H PRN PRN Reason: Shortness of Breath Last Admin: 11/09/24 18:22 Dose: 2 puff Albuterol/Ipratropium (Albuterol/Iprat 2.5/0.5mg 3 Ml Ampul.Neb) 3 ml INHALE BID [facility] Last Admin: 11/10/24 09:02 Dose: 3 ml Artificial Tears (Artificial Tears 15 Ml Drops) 2 drop EYE-BOTH QID [facility] Last Admin: 11/10/24 08:29 Dose: 2 drop Benzocaine (Throat Lozenge, Medicated Lozenge) 1 lozenge MUCOUS MEM Q4H PRN PRN Reason: Sore Throat Last Admin: 11/10/24 08:35 Dose: 1 lozenge Carbamazepine (Carbamazepine Er 200 Mg Tab.Er.12h) 600 mg PO BID [facility] Last Admin: 11/10/24 08:32 Dose: 600 mg Cyclobenzaprine HCl (Cyclobenzaprine Hcl 5 Mg Tablet) 7.5 mg PO BEDTIME [facility] Last Admin: 11/09/24 21:22 Dose: 7.5 mg Dextrose (Dextrose 50 % 25 Gm/50 Ml Syringe) 25 gm IVPUSH Q15M PRN; Protocol PRN Reason: per Hypoglycemia Standing Ord. Dicyclomine HCl (Dicyclomine Hcl 10 Mg Capsule) 10 mg PO Q6H PRN PRN Reason: Abdominal Pain Docusate Sodium (Docusate Sodium 100 Mg Capsule) 200 mg PO DAILY [facility] Last Admin: 11/10/24 08:30 Dose: 200 mg Famotidine (Famotidine 20 Mg Tablet) 40 mg PO BID [facility] Last Admin: 11/10/24 08:31 Dose: 40 mg Ferrous Sulfate (Ferrous Sulfate 324 Mg Tablet.Dr) 324 mg PO BEDTIME [facility] Last Admin: 11/09/24 21:25 Dose: 324 mg Fluticasone Propionate (Fluticasone Propionate Nasal 16 Gm [place]) 2 spray NOSTRIL-B BID [facility] Last Admin: 11/10/24 08:29 Dose: 2 spray Fluticasone/Vilanterol (Fluticasone/Vilanterol 200/25 Blst.W.Dev) 1 puff INHALE RDAILY [facility] Last Admin: 11/10/24 08:28 Dose: 1 puff Gabapentin (Gabapentin 400 Mg Capsule) 400 mg PO TID [facility] Last Admin: 11/10/24 08:31 Dose: 400 mg Glucose (Glucose Gel 15 Gm Gel..Gram.) 15 gm PO Q15M PRN; Protocol PRN Reason: per Hypoglycemia Standing Ord. Hydroxyzine HCl (Hydroxyzine Hcl 50 Mg Tablet) 100 mg PO TID PRN PRN Reason: mild anxiety Last Admin: 11/10/24 08:33 Dose: 100 mg Hydroxyzine HCl (Hydroxyzine Hcl 50 Mg Tablet) 100 mg PO BEDTIME [facility] Last Admin: 11/09/24 21:25 Dose: 100 mg Ibuprofen (Ibuprofen 600 Mg Tablet) 600 mg PO TID PRN PRN Reason: fever or pain Last Admin: 11/10/24 08:32 Dose: 600 mg Insulin Glargine (Insulin Glargine,Hum.Rec.Anlog 100 Unit/Ml 10 Ml Vial) 10 unit SUBCUT BEDTIME [facility] Last Admin: 11/09/24 21:23 Dose: 10 unit Insulin Human Lispro (Insulin Lispro 100 Unit/Ml 3 Ml Vial) 0 unit SUBCUT BID [facility]; Protocol Last Admin: 11/10/24 09:18 Dose: Not Given Lactase (Lactase Tablet) 1 tab PO Q6H PRN PRN Reason: dairy meal or snack Last Admin: 11/06/24 16:58 Dose: 1 tab Lactic Acid (Ammonium Lactate 12 % Cream 140 Gm Tube) 1 appl TOPICAL BEDTIME [facility]; Protocol Last Admin: 11/09/24 21:39 Dose: 1 appl Latanoprost (Latanoprost 0.005 % Ophth Mini 2.5 Ml Drops) 2 drop EYE-BOTH BEDTIME [facility] Last Admin: 11/09/24 21:39 Dose: 2 drop Lidocaine (Lidocaine 4 % Patch Adh..Patch) 1 patch TRANSDERMA DAILY PRN; Protocol PRN Reason: musculoskeletal pain Last Admin: 11/06/24 09:10 Dose: 1 patch Loratadine (Loratadine 10 Mg Tablet) 10 mg PO DAILY [facility] Last Admin: 11/10/24 08:31 Dose: 10 mg Magnesium Hydroxide (Milk Of Magnesia 30 Ml Oral.Susp) 30 ml PO DAILY PRN PRN Reason: Constipation Metformin HCl (Metformin Hcl Er 500 Mg Tab.Er.24h) 1,000 mg PO BEDTIME [facility] Last Admin: 11/09/24 21:25 Dose: 1,000 mg Multivitamins/Vitamin C (Multivitamin Tablet) 1 tab PO DAILY [facility] Last Admin: 11/10/24 08:33 Dose: 1 tab Nicotine Polacrilex (Nicotine Polacrilex 2 Mg Gum) 4 mg BUCCAL Q2H PRN PRN Reason: Nicotine Cravings Olanzapine (Olanzapine 5 Mg Tablet) 5 mg PO TID PRN PRN Reason: agitation Omeprazole (Omeprazole 20 Mg Capsule.Dr) 20 mg PO BID@0630,1630 [facility] Last Admin: 11/10/24 06:56 Dose: 20 mg Ondansetron HCl (Ondansetron Odt 4 Mg Tab.Rapdis) 4 mg TRANSLINGU Q6H PRN PRN Reason: Nausea Prazosin HCl (Prazosin Hcl 1 Mg Capsule) 2 mg PO BEDTIME [facility]; Protocol Last Admin: 11/09/24 21:24 Dose: 2 mg Prazosin HCl (Prazosin Hcl 5 Mg Capsule) 5 mg PO BEDTIME [facility]; Protocol Last Admin: 11/09/24 21:25 Dose: 5 mg Quetiapine Fumarate (Quetiapine Fumarate 25 Mg Tablet) 25 mg PO Q6H PRN PRN Reason: moderate Anxiety Last Admin: 11/10/24 08:34 Dose: 25 mg Quetiapine Fumarate (Quetiapine Fumarate 400 Mg Tablet) 400 mg PO BEDTIME [facility] Last Admin: 11/09/24 21:25 Dose: 400 mg Sitagliptin Phosphate (Sitagliptin Phosphate 100 Mg Tablet) 100 mg PO DAILY [facility] Last Admin: 11/10/24 08:31 Dose: 100 mg Sodium Chloride (Sodium Chloride 0.65 % Nasal 44 Ml Sprbtl) 1 spray NOSTRIL-B Q1H PRN PRN Reason: nasal congestion Last Admin: 11/08/24 21:09 Dose: 1 spray Tiotropium [place] (Tiotropium [place] 2.5 Mcg 1 Puff/2.5 Mcg Mist.Inhal) 2 puff INHALE RDAILY [facility] Last Admin: 11/10/24 08:27 Dose: 2 puff Trazodone HCl (Trazodone Hcl 50 Mg Tablet) 50 mg PO BEDTIME [facility] PRN PRN Reason: Insomnia Trazodone HCl (Trazodone Hcl 100 Mg Tablet) 200 mg PO BEDTIME [facility] Last Admin: 11/09/24 21:25 Dose: 200 mg Trolamine Salicylate (Trolamine Salicylate 10 % Cream 85 Gm Tube) 1 appl TOPICAL TID PRN; Protocol PRN Reason: rib pain Last Admin: 11/09/24 21:39 Dose: 1 appl Vitamin D (Cholecalciferol (Vitamin D3) 25 Mcg Tablet) 25 mcg PO DAILY [facility] Last Admin: 11/10/24 08:34 Dose: 25 mcg Allergies Allergies Allergy/AdvReac Type Severity Reaction Status Date / Time sulfamethoxazole Allergy Intermediate Rash Verified 11/04/24 17:42 [From Bactrim] trimethoprim [From Bactrim] Allergy Intermediate Rash Verified 11/04/24 17:42 adhesive tape Allergy Rash Verified 11/04/24 17:42 [place] And Derivatives Allergy Gastrointestinal Verified 11/04/24 17:42 Upset Benzodiazepines AdvReac Intermediate Hives Verified 11/04/24 17:42 diazepam [From Valium] AdvReac Intermediate Irritable Verified 11/04/24 17:42 Assessment & Plan Assessment & Plan (1) Bipolar disorder: Status: Acute Code(s): F31.9 - Bipolar disorder, unspecified (2) Chest tightness: Status: Acute Code(s): R07.89 - Other chest pain (3) Suicidal ideation: Status: Acute Code(s): R45.851 - Suicidal ideations (4) Diabetes mellitus, type 2: Status: Acute Code(s): E11.9 - Type 2 diabetes mellitus without complications (5) Sleep apnea: Status: Acute Code(s): G47.30 - Sleep apnea, unspecified Plan 11/05: continue home meds. supportive care. dispo planning. 11/06: change POC to BID, add nasal moistening spray, add aspercreme for rib pain, restart asthma inhalers - pt to obtain from her [facility], check CXR for ribs pain. otherwise continue current mgmt. do NOT give ativan. 11/07 continue tx. cepacol ordered. 11/08 continue tx. 11/09 continue tx. 11/10: Patient reports feeling anxious and is looking forward to returning home. Patient stated, I'm feeling better and would like to go home this week ; perinatal social worker aware and plans on getting in contact with [facility]. per nursing, slept 8 hours. pt denies SI/HI/VH/AH. denies any issues at this time; focused on discharge. Patient educated on: diagnosis and medication risk/benefits Reason for continued inpatient stay Substantial Risk for: med/psych decompensation Time Spent With Patient Time: Total time managing care of this patient today _20___ minutes.
[2024-11-10 20:30] LABS: Glucose, Whole Blood 136 mg/dL (60-115)
[2024-11-10] MEDS: traZODone HCL 100 MG TABLET 200 MG PO (20:30)
[2024-11-10] MEDS: metFORMIN HCl ER 500 MG TAB.ER.24H 1000 MG PO (20:30)
[2024-11-10] MEDS: Ferrous Sulfate 324 MG TABLET.DR PO (20:31)
[2024-11-10] MEDS: QUEtiapine Fumarate 400 MG TABLET PO (20:32)
[2024-11-10] MEDS: Prazosin HCL 5 MG CAPSULE PO (20:32)
[2024-11-10] MEDS: Cyclobenzaprine HCl 5 MG TABLET 7.5 MG PO (20:33)
[2024-11-10] MEDS: Prazosin HCL 1 MG CAPSULE 2 MG PO (20:33)
[2024-11-10] MEDS: Insulin Glargine,Hum.rec.anlog 100 UNIT/ML 10 ML VIAL 10 UNIT SUBCUT (20:34)
[2024-11-10 20:35] VITALS: BP 145/71; PULSE 87; RESP 18; TEMP 37; O2SAT 94
[2024-11-10] MEDS: Latanoprost 0.005 % Ophth Sol 2.5 ML DROPS 2 DROP EYE-BOTH (20:45)
[2024-11-10] MEDS: Ammonium Lactate 12 % Cream 140 GM TUBE 1 APPL TOPICAL (20:47)
[2024-11-10 21:30] VITALS: PULSE 88; RESP 18; O2SAT 96
[2024-11-11] MEDS: Omeprazole 20 MG CAPSULE.DR PO ×2 (06:47→15:38)
[2024-11-11 07:42] VITALS: BP 132/68; PULSE 81; RESP 16; TEMP 36.4; O2SAT 94
[2024-11-11 07:45] LABS: Glucose, Whole Blood 109 mg/dL (60-115)
[2024-11-11] MEDS: SITagliptin Phosphate 100 MG TABLET PO (08:20)
[2024-11-11] MEDS: Docusate Sodium 100 MG CAPSULE 200 MG PO (08:20)
[2024-11-11] MEDS: Multivitamin TABLET 1 TAB PO (08:20)
[2024-11-11] MEDS: Gabapentin 400 MG CAPSULE PO ×3 (08:21→20:31)
[2024-11-11] MEDS: Cholecalciferol (Vitamin D3) 25 MCG TABLET PO (08:21)
[2024-11-11] MEDS: carBAMazepine ER 200 MG TAB.ER.12H 600 MG PO ×2 (08:21→20:28)
[2024-11-11] MEDS: Loratadine 10 MG TABLET PO (08:22)
[2024-11-11] MEDS: Fluticasone Propionate Nasal 16 GM SPRAY 2 SPRAY NOSTRIL-B ×2 (08:22→20:36)
[2024-11-11] MEDS: Famotidine 20 MG TABLET 40 MG PO ×2 (08:22→20:32)
[2024-11-11] MEDS: Fluticasone/Vilanterol 200/25 BLST.W.DEV 1 PUFF INHALE (08:23)
[2024-11-11] MEDS: Artificial Tears 15 ML DROPS 2 DROP EYE-BOTH ×2 (08:23→20:36)
[2024-11-11] MEDS: Tiotropium Bromide 2.5 mcg 1 PUFF/2.5 MCG MIST.INHAL 2 PUFF INHALE (08:27)
[2024-11-11] MEDS: Acetaminophen 325 MG TABLET 975 MG PO (08:27)
[2024-11-11] MEDS: Ibuprofen 600 MG TABLET PO (08:28)
[2024-11-11 08:54] VITALS: PULSE 81; RESP 16; O2SAT 99
[2024-11-11] MEDS: Albuterol/Iprat 2.5/0.5MG 3 ML AMPUL.NEB INHALE ×2 (08:54→21:33)
[2024-11-11] MEDS: QUEtiapine Fumarate 25 MG TABLET PO ×2 (10:49→23:42)
[2024-11-11] MEDS: hydrOXYzine HCL 50 MG TABLET 100 MG PO ×3 (10:49→23:43)
[2024-11-11] MEDS: Trolamine Salicylate 10 % Cream 85 GM TUBE 1 APPL TOPICAL ×3 (10:54→23:43)
--- NOTE | 2024-11-11 12:50 | HO.PSYCHPN ---
Subjective Subjective Date of Service: 11/11/24 Reason For Visit: Decompensation Interim History: Patient reports feeling good today; pt stated, I'm feeling ready to go home. I miss my bed . denies SI/HI/VH/AH. focused on discharge. Patient reports she plans on following up with her outpatient providers. Medication Compliance: Yes Side effects from medications: No Attending Groups: Intermittent Mental Status Exam Mental Status Exam Narrative: Pt is alert and oriented; behavior is cooperative and calm; dressed in casual attire; mood is described as good ; eye contact appropriate; Speech is normal rate, volume and not pressured; thought process is organized; Thought content is on discharge; denies SI/HI/VH/AH. Diagnostics Vital Signs (24Hr): Vital Signs - 24 hr 11/10/24 20:35 11/10/24 21:30 11/11/24 07:42 Temperature 98.6 F 97.5 F Pulse Rate 87 88 81 Respiratory Rate 18 18 16 Blood Pressure 145/71 H 132/68 Pulse Oximetry 94 94 Oxygen Delivery Method Room Air Room Air 11/11/24 08:54 Temperature Pulse Rate 81 Respiratory Rate 16 Blood Pressure Pulse Oximetry Oxygen Delivery Method BMI result Body Mass Index 26.6 Labs 11/04/24 19:55 11/05/24 07:56 Labs: Laboratory Results - last 48 hr 11/09/24 11/10/24 11/10/24 20:50 07:33 20:25 POC Glucose 142 H 121 H 136 H 11/11/24 07:36 POC Glucose 109 Imaging Radiology Impressions: ITS Impressions Ribs w/Chest X-Ray 11/06/24 11:00 IMPRESSION: No acute bony abnormalities. No active pulmonary disease. Electronically signed by: Andery Carroll MD 11/06/2024 11:35 AM EDT Medications Medications Current Medications Acetaminophen (Acetaminophen 325 Mg Tablet) 975 mg PO Q8H PRN PRN Reason: Fever Or Pain (scale 1-10) Last Admin: 11/11/24 08:27 Dose: 975 mg Al Hydroxide/Mg Hydroxide (Magnesium Hydrox/Alum Hydrox 30 Ml Oral.Susp) 30 ml PO Q6H PRN PRN Reason: Heartburn/Nausea Albuterol Sulfate (Albuterol Sulfate 90 Mcg 8 Gm Inhaler) 2 puff INHALE Q4H PRN PRN Reason: Shortness of Breath Last Admin: 11/09/24 18:22 Dose: 2 puff Albuterol/Ipratropium (Albuterol/Iprat 2.5/0.5mg 3 Ml Ampul.Neb) 3 ml INHALE BID [facility] Last Admin: 11/11/24 08:54 Dose: 3 ml Artificial Tears (Artificial Tears 15 Ml Drops) 2 drop EYE-BOTH QID [facility] Last Admin: 11/11/24 08:23 Dose: 2 drop Benzocaine (Throat Lozenge, Medicated Lozenge) 1 lozenge MUCOUS MEM Q4H PRN PRN Reason: Sore Throat Last Admin: 11/10/24 08:35 Dose: 1 lozenge Carbamazepine (Carbamazepine Er 200 Mg Tab.Er.12h) 600 mg PO BID [facility] Last Admin: 11/11/24 08:21 Dose: 600 mg Cyclobenzaprine HCl (Cyclobenzaprine Hcl 5 Mg Tablet) 7.5 mg PO BEDTIME [facility] Last Admin: 11/10/24 20:33 Dose: 7.5 mg Dextrose (Dextrose 50 % 25 Gm/50 Ml Syringe) 25 gm IVPUSH Q15M PRN; Protocol PRN Reason: per Hypoglycemia Standing Ord. Dicyclomine HCl (Dicyclomine Hcl 10 Mg Capsule) 10 mg PO Q6H PRN PRN Reason: Abdominal Pain Docusate Sodium (Docusate Sodium 100 Mg Capsule) 200 mg PO DAILY [facility] Last Admin: 11/11/24 08:20 Dose: 200 mg Famotidine (Famotidine 20 Mg Tablet) 40 mg PO BID [facility] Last Admin: 11/11/24 08:22 Dose: 40 mg Ferrous Sulfate (Ferrous Sulfate 324 Mg Tablet.Dr) 324 mg PO BEDTIME [facility] Last Admin: 11/10/24 20:31 Dose: 324 mg Fluticasone Propionate (Fluticasone Propionate Nasal 16 Gm [place]) 2 spray NOSTRIL-B BID [facility] Last Admin: 11/11/24 08:22 Dose: 2 spray Fluticasone/Vilanterol (Fluticasone/Vilanterol 200/25 Blst.W.Dev) 1 puff INHALE RDAILY [facility] Last Admin: 11/11/24 08:23 Dose: 1 puff Gabapentin (Gabapentin 400 Mg Capsule) 400 mg PO TID [facility] Last Admin: 11/11/24 08:21 Dose: 400 mg Glucose (Glucose Gel 15 Gm Gel..Gram.) 15 gm PO Q15M PRN; Protocol PRN Reason: per Hypoglycemia Standing Ord. Hydroxyzine HCl (Hydroxyzine Hcl 50 Mg Tablet) 100 mg PO TID PRN PRN Reason: mild anxiety Last Admin: 11/11/24 10:49 Dose: 100 mg Hydroxyzine HCl (Hydroxyzine Hcl 50 Mg Tablet) 100 mg PO BEDTIME [facility] Last Admin: 11/10/24 20:30 Dose: 100 mg Ibuprofen (Ibuprofen 600 Mg Tablet) 600 mg PO TID PRN PRN Reason: fever or pain Last Admin: 11/11/24 08:28 Dose: 600 mg Insulin Glargine (Insulin Glargine,Hum.Rec.Anlog 100 Unit/Ml 10 Ml Vial) 10 unit SUBCUT BEDTIME [facility] Last Admin: 11/10/24 20:34 Dose: 10 unit Insulin Human Lispro (Insulin Lispro 100 Unit/Ml 3 Ml Vial) 0 unit SUBCUT BID [facility]; Protocol Last Admin: 11/11/24 08:29 Dose: Not Given Lactase (Lactase Tablet) 1 tab PO Q6H PRN PRN Reason: dairy meal or snack Last Admin: 11/06/24 16:58 Dose: 1 tab Lactic Acid (Ammonium Lactate 12 % Cream 140 Gm Tube) 1 appl TOPICAL BEDTIME [facility]; Protocol Last Admin: 11/10/24 20:47 Dose: 1 appl Latanoprost (Latanoprost 0.005 % Ophth Mini 2.5 Ml Drops) 2 drop EYE-BOTH BEDTIME [facility] Last Admin: 11/10/24 20:45 Dose: 2 drop Lidocaine (Lidocaine 4 % Patch Adh..Patch) 1 patch TRANSDERMA DAILY PRN; Protocol PRN Reason: musculoskeletal pain Last Admin: 11/06/24 09:10 Dose: 1 patch Loratadine (Loratadine 10 Mg Tablet) 10 mg PO DAILY [facility] Last Admin: 11/11/24 08:22 Dose: 10 mg Magnesium Hydroxide (Milk Of Magnesia 30 Ml Oral.Susp) 30 ml PO DAILY PRN PRN Reason: Constipation Metformin HCl (Metformin Hcl Er 500 Mg Tab.Er.24h) 1,000 mg PO BEDTIME [facility] Last Admin: 11/10/24 20:30 Dose: 1,000 mg Multivitamins/Vitamin C (Multivitamin Tablet) 1 tab PO DAILY [facility] Last Admin: 11/11/24 08:20 Dose: 1 tab Nicotine Polacrilex (Nicotine Polacrilex 2 Mg Gum) 4 mg BUCCAL Q2H PRN PRN Reason: Nicotine Cravings Olanzapine (Olanzapine 5 Mg Tablet) 5 mg PO TID PRN PRN Reason: agitation Last Admin: 11/10/24 17:02 Dose: 5 mg Omeprazole (Omeprazole 20 Mg Capsule.Dr) 20 mg PO BID@0630,1630 [facility] Last Admin: 11/11/24 06:47 Dose: 20 mg Ondansetron HCl (Ondansetron Odt 4 Mg Tab.Rapdis) 4 mg TRANSLINGU Q6H PRN PRN Reason: Nausea Prazosin HCl (Prazosin Hcl 1 Mg Capsule) 2 mg PO BEDTIME [facility]; Protocol Last Admin: 11/10/24 20:33 Dose: 2 mg Prazosin HCl (Prazosin Hcl 5 Mg Capsule) 5 mg PO BEDTIME [facility]; Protocol Last Admin: 11/10/24 20:32 Dose: 5 mg Quetiapine Fumarate (Quetiapine Fumarate 25 Mg Tablet) 25 mg PO Q6H PRN PRN Reason: moderate Anxiety Last Admin: 11/11/24 10:49 Dose: 25 mg Quetiapine Fumarate (Quetiapine Fumarate 400 Mg Tablet) 400 mg PO BEDTIME [facility] Last Admin: 11/10/24 20:32 Dose: 400 mg Sitagliptin Phosphate (Sitagliptin Phosphate 100 Mg Tablet) 100 mg PO DAILY [facility] Last Admin: 11/11/24 08:20 Dose: 100 mg Sodium Chloride (Sodium Chloride 0.65 % Nasal 44 Ml Sprbtl) 1 spray NOSTRIL-B Q1H PRN PRN Reason: nasal congestion Last Admin: 11/08/24 21:09 Dose: 1 spray Tiotropium [place] (Tiotropium [place] 2.5 Mcg 1 Puff/2.5 Mcg Mist.Inhal) 2 puff INHALE RDAILY [facility] Last Admin: 11/11/24 08:27 Dose: 2 puff Trazodone HCl (Trazodone Hcl 50 Mg Tablet) 50 mg PO BEDTIME [facility] PRN PRN Reason: Insomnia Trazodone HCl (Trazodone Hcl 100 Mg Tablet) 200 mg PO BEDTIME [facility] Last Admin: 11/10/24 20:30 Dose: 200 mg Trolamine Salicylate (Trolamine Salicylate 10 % Cream 85 Gm Tube) 1 appl TOPICAL TID PRN; Protocol PRN Reason: rib pain Last Admin: 11/11/24 10:54 Dose: 1 appl Vitamin D (Cholecalciferol (Vitamin D3) 25 Mcg Tablet) 25 mcg PO DAILY [facility] Last Admin: 11/11/24 08:21 Dose: 25 mcg Allergies Allergies Allergy/AdvReac Type Severity Reaction Status Date / Time sulfamethoxazole Allergy Intermediate Rash Verified 11/04/24 17:42 [From Bactrim] trimethoprim [From Bactrim] Allergy Intermediate Rash Verified 11/04/24 17:42 adhesive tape Allergy Rash Verified 11/04/24 17:42 [place] And Derivatives Allergy Gastrointestinal Verified 11/04/24 17:42 Upset Benzodiazepines AdvReac Intermediate Hives Verified 11/04/24 17:42 diazepam [From Valium] AdvReac Intermediate Irritable Verified 11/04/24 17:42 Assessment & Plan Assessment & Plan (1) Bipolar disorder: Status: Acute Code(s): F31.9 - Bipolar disorder, unspecified (2) Chest tightness: Status: Acute Code(s): R07.89 - Other chest pain (3) Suicidal ideation: Status: Acute Code(s): R45.851 - Suicidal ideations (4) Diabetes mellitus, type 2: Status: Acute Code(s): E11.9 - Type 2 diabetes mellitus without complications (5) Sleep apnea: Status: Acute Code(s): G47.30 - Sleep apnea, unspecified Plan 11/05: continue home meds. supportive care. dispo planning. 11/06: change POC to BID, add nasal moistening spray, add aspercreme for rib pain, restart asthma inhalers - pt to obtain from her alf, check CXR for ribs pain. otherwise continue current mgmt. do NOT give ativan. 11/07 continue tx. cepacol ordered. 11/08 continue tx. 11/09 continue tx. 11/10: Patient reports feeling anxious and is looking forward to returning home. 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 per nursing, slept 8 hours. pt denies SI/HI/VH/AH. denies any issues at this time; focused on discharge. 11/11: Patient reports feeling good today; pt stated, I'm feeling ready to go home. I miss my bed . denies SI/HI/VH/AH. focused on discharge. Patient reports she plans on following up with her outpatient providers. Patient educated on: diagnosis and medication risk/benefits Reason for continued inpatient stay Substantial Risk for: stable for discharge Time Spent With Patient Time: Total time managing care of this patient today _20___ minutes.
[2024-11-11 20:00] VITALS: BP 133/88; PULSE 93; RESP 18; TEMP 36.8; O2SAT 96
[2024-11-11 20:23] LABS: Glucose, Whole Blood 157 mg/dL (60-115)
[2024-11-11] MEDS: Cyclobenzaprine HCl 5 MG TABLET 7.5 MG PO (20:28)
[2024-11-11] MEDS: Prazosin HCL 5 MG CAPSULE PO (20:29)
[2024-11-11] MEDS: Prazosin HCL 1 MG CAPSULE 2 MG PO (20:30)
[2024-11-11] MEDS: traZODone HCL 100 MG TABLET 200 MG PO (20:31)
[2024-11-11] MEDS: metFORMIN HCl ER 500 MG TAB.ER.24H 1000 MG PO (20:31)
[2024-11-11] MEDS: QUEtiapine Fumarate 400 MG TABLET PO (20:31)
[2024-11-11] MEDS: Ferrous Sulfate 324 MG TABLET.DR PO (20:32)
[2024-11-11] MEDS: Insulin Glargine,Hum.rec.anlog 100 UNIT/ML 10 ML VIAL 10 UNIT SUBCUT (20:33)
[2024-11-11] MEDS: Insulin Lispro 100 UNIT/ML 3 ML VIAL SUBCUT (20:34)
[2024-11-11] MEDS: Latanoprost 0.005 % Ophth Sol 2.5 ML DROPS 2 DROP EYE-BOTH (20:37)
[2024-11-11 21:34] VITALS: PULSE 102; RESP 18; O2SAT 96
[2024-11-12 07:26] VITALS: BP 141/83; PULSE 91; RESP 16; TEMP 36.4; O2SAT 94
[2024-11-12 07:41] LABS: Glucose, Whole Blood 143 mg/dL (60-115)
[2024-11-12 08:25] LABS: Creatinine Clr Calc Pharmacy 84.8; Estimated Glomerular Filt Rate > 60
[2024-11-12] MEDS: Fluticasone/Vilanterol 200/25 BLST.W.DEV 1 PUFF INHALE (08:28)
[2024-11-12] MEDS: Tiotropium Bromide 2.5 mcg 1 PUFF/2.5 MCG MIST.INHAL 2 PUFF INHALE (08:28)
[2024-11-12] MEDS: Artificial Tears 15 ML DROPS 2 DROP EYE-BOTH (08:29)
[2024-11-12] MEDS: carBAMazepine ER 200 MG TAB.ER.12H 600 MG PO (08:30)
[2024-11-12] MEDS: Loratadine 10 MG TABLET PO (08:30)
[2024-11-12] MEDS: Famotidine 20 MG TABLET 40 MG PO (08:30)
[2024-11-12] MEDS: Omeprazole 20 MG CAPSULE.DR PO (08:30)
[2024-11-12] MEDS: Gabapentin 400 MG CAPSULE PO (08:30)
[2024-11-12] MEDS: Docusate Sodium 100 MG CAPSULE 200 MG PO (08:30)
[2024-11-12] MEDS: Multivitamin TABLET 1 TAB PO (08:30)
[2024-11-12] MEDS: Cholecalciferol (Vitamin D3) 25 MCG TABLET PO (08:31)
[2024-11-12] MEDS: Fluticasone Propionate Nasal 16 GM SPRAY 2 SPRAY NOSTRIL-B (08:31)
[2024-11-12] MEDS: SITagliptin Phosphate 100 MG TABLET PO (08:31)
[2024-11-12] MEDS: Albuterol Sulfate 90 MCG 8 GM INHALER 2 PUFF INHALE (08:32)
[2024-11-12] MEDS: Acetaminophen 325 MG TABLET 975 MG PO (09:02)
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
--- NOTE | 2024-11-12 11:30 | PC.NURSE ---
Patient easily engaged. Reports feeling anxious however ready to go . Denies depression or sadness, Denies SI/HI plan or intent. Denies perceptual disturbances, no overt psychosis or expressed delusions. Discharge paperwork reviewed with patient, reports understanding. Plans to call psychiatrist, therapist and MD post discharge. All medications reviewed with patient reports understanding. States she has people to help her with medications. All belongings taken with patient. Crisis numbers provided.
== END 2024-11-12 11:10 | disposition home or self-care (01) | DRG 885 ==
LOC: HO.ED 21:38 → HO.PADLT16 22:06
PROVIDERS: Registered Nurse; Admitting Provider Psychiatry & Neurology Psychiatry; Emergency Provider Emergency Medicine; Visit Provider Psychiatry & Neurology Psychiatry
DX: F31.9 Bipolar disorder, unspecified (principal); R45.851 Suicidal ideations; J45.909 Unspecified asthma, uncomplicated; K21.9 Gastro-esophageal reflux disease without esophagitis; G47.33 Obstructive sleep apnea (adult) (pediatric); R07.81 Pleurodynia; E11.9 Type 2 diabetes mellitus without complications; Z79.4 Long term (current) use of insulin; Z79.84 Long term (current) use of oral hypoglycemic drugs; Z79.51 Long term (current) use of inhaled steroids; Z79.899 Other long term (current) drug therapy
CPT/HCPCS: 36415; 71111; 80048; 80053; 80061; 80076; 80156; 80307; 81001; 82565; 82947; 83036; 84439; 84443; 85025; 87086; 94640; 99285; S9485

== ENCOUNTER 2024-11-04 21:50 | Outpatient (BNV) | payer MEDICARE, MEDICAID, SELFPAY ==
--- NOTE | 2024-11-13 15:16 | MHC.COMNAV ---
Intake Intake Visit Reasons: Decompensation Allergies sulfamethoxazole [From Bactrim] Allergy (Intermediate, Verified 11/04/24 17:42) Rash trimethoprim [From Bactrim] Allergy (Intermediate, Verified 11/04/24 17:42) Rash adhesive tape Allergy (Verified 11/04/24 17:42) Rash [place] Derivatives Allergy (Verified 11/04/24 17:42) Gastrointestinal Upset Benzodiazepines Adverse Reaction (Intermediate, Verified 11/04/24 17:42) Hives diazepam [From Valium] Adverse Reaction (Intermediate, Verified 11/04/24 17:42) Irritable [facility] Medical History GERD (gastroesophageal reflux disease) Sleep apnea Asthma Hearing loss Diabetes mellitus, type 2 Social History Household Members: Other Household Members Other:: senior care Housing: Other Housing Other:: [facility] senior care Do you presently have visiting nurse or other home services: Yes Alcohol intake: never Comment: pt on 5 min checks Patient Tobacco Use Status: Never used Tobacco e-Cigarette/Vaping Use: Never Used service: No Sexual orientation: Straight/Heterosexual Questionnaires Thrive Questionnaire Date Thrive assessed: 11/05/24 Coding Level of Care Code Procedure Only
== END 2024-11-06 11:00 ==
PROVIDERS: Admitting Provider Psychiatry & Neurology Psychiatry; Emergency Provider Emergency Medicine; Visit Provider Radiology Diagnostic Radiology
DX: R07.89 Other chest pain (principal)
CPT/HCPCS: 71111

== ENCOUNTER → 2024-11-04 21:50 | Outpatient (BNV) | payer MEDICARE, MEDICAID, SELFPAY | PROVIDERS: Admitting Provider Psychiatry & Neurology Psychiatry; Emergency Provider Emergency Medicine; Visit Provider Student in an Organized Health Care Education/Training Program | DX: R07.89 Other chest pain (principal) | CPT/HCPCS: 99222 ==

== ENCOUNTER → 2024-11-04 21:50 | Outpatient (BNV) | payer MEDICARE, MEDICAID, SELFPAY | PROVIDERS: Admitting Provider Psychiatry & Neurology Psychiatry; Emergency Provider Emergency Medicine; Visit Provider Psychiatry & Neurology Psychiatry | DX: F31.4 Bipolar disorder, current episode depressed, severe, without psychotic features (principal); R07.89 Other chest pain; R45.851 Suicidal ideations; E11.9 Type 2 diabetes mellitus without complications; G47.30 Sleep apnea, unspecified | CPT/HCPCS: 90792; 99231; 99232; 99238 ==

== ENCOUNTER 2024-12-31 14:22 | Outpatient (REF) | payer MEDICARE, MEDICAID, SELFPAY ==
--- OUTSIDE RECORDS SUMMARY | 2024-12-31 16:57 | XMS_ITS | Data Portability ---
Author Organization [place] - [facility], Allergy Address [address] [address] Assessment No assessment recorded. Plan of Treatment [...] Details Recorded Time Otalgia of left ear 8959669844 Active 2018 Otalgia, left ear; Note: Date Diagnosed : 09/18/2018 11:32 AM (H92.02) Not Available [facility] 4 02:50:02 Sensorine ural hearing loss of bilateral ears [id number] Active 2018 Sensorine ural hearing loss, bilateral ; Note: Date Diagnosed : 09/18/2018 12:33 PM (H90.3) Not Available [facility] 4 02:50:02 Pain of left temporoma ndibular joint [id number] 112963 Active 2018 Arthralgi a of left temporoma ndibular joint; Note: Date Diagnosed : 10/02/2018 4:27 PM (M26.622) Not Available [facility] 4 02:50:00 Problem Notes None recorded. Procedures Surgical History Date Name Laterality Status Provider Name and Address Organization Details Recorded Time 12/13/19 Comp Audio with Tymps - 56902 & 80966 completed JAQUELIN MOSES, [address], [address], [place] - [facility] 12/13/2023 14:23:06 Remove tonsils and adenoids completed Gaby Stahl [place] - [facility] 12/13/2023 13:45:09 Appendectomy completed Gaby Stahl [place] - [facility] 12/13/2023 13:45:16 procedure on brain completed Gaby Stahl [place] - [facility] 12/13/2023 13:45:24 Imaging Results None recorded. Procedure Notes None recorded. Medical Equipment None Reported. Allergies Allergen ID Allergen Name Allergen Category Reaction Reaction Severity Criticality Documentation Date Start Date Code Code System Note Provider Name and Address Organization Details Recorded Time 753982 Product containin g benzodiaz epine (product) medicatio n other Not available Not available 12/03/2023 27093 007 SNOMED React ion: unkno wn, unspe cifie d;; Not Available [facility] 4 01:12:33 938050 Bactrim medicatio n other Not available Not available 12/03/2023 87150 9 RxNorm React ion: unkno wn, unspe cifie d;; Not Available [facility] 4 01:12:34 202412 Valium medicatio n other Not available Not available 12/03/2023 91358 2 RxNorm React ion: unkno wn, unspe cifie d;; Not Available [facility] 4 01:12:36 Medications Name Sig Start Date Stop Date Status Note LastModified by Organization Details LastModified Time hydroxyzi ne pamoate 100 mg capsule active Medicati on ID: 192450 B rand Name: hydroxyz ine pamoate Send [...] oral powder 2018 active Medicati on ID: 941869 B rand Name: Miralax Send Method: E-Prescr ibed Sub s Allowed: subs OK Medic ationGen ericName : Miralax Not Available Not Available Not Available clonidine HCl 0.1 mg tablet active Medicati on ID: 243327 B rand Name: clonidin e HCl Send [...] 1 mg capsule active Medicati on ID: 414907 B rand Name: prazosin Send Method: E-Prescr [...] 0.3 mg tablet active Medicati on ID: 679759 B rand Name: clonidin e HCl Send Method: E-Prescr ibed Sub s Allowed: subs OK Medic ationGen ericName : clonidin e HCl Not Available Not Available Not Available gabapenti n 400 mg capsule active Medicati on ID: 806314 B rand Name: gabapent in Send Method: [...] for inhalatio n active Medicati on ID: 437405 B rand Name: Advair Diskus S end Method: E-Prescr ibed Sub s Allowed: subs OK Medic ationGen ericName : Advair Diskus Not Available Not Available Not Available hydroxyzi ne HCl 50 mg tablet active Medicati on ID: 408304 B rand Name: hydroxyz ine HCl Send [...] disintegr ating tablet active Medicati on ID: 928734 B rand Name: kaylan hollingsworth Send Method: E-Prescr ibed Sub s Allowed: subs OK Medic ationGen ericName : ondanset edel Not Available Not Available Not Available carbamaze pine ER 400 mg tablet,ex tended release,1 2 hr active Not Available Not Available Not Available prazosin 5 mg capsule active Not Available Not Available Not Available trazodone 100 mg tablet active Medicati on ID: 780398 B rand Name: trazodon e Send Method: [...] % topical cream active Medicati on ID: 688852 B rand Name: clotrima zole-bet amethaso ne [...] mg tablet 2018 active Medicati on ID: 486712 D uration Value: 7 Brand Name: ibuprofe n Send Method: E-Prescr ibed Sub s Allowed: subs OK Medic ationGen ericName : ibuprofe n Not Available Not Available Not Available docusate sodium 100 mg capsule active Not Available Not Available Not Available omeprazol e 20 mg capsule,d elayed release 2018 active Medicati on ID: [id number] D uration Value: 28 Brand Name: omeprazo le Send Method: E-Prescr ibed Sub s Allowed: subs OK Medic ationGen ericName : omeprazo le Not Available Not Available Not Available Dairy-Aid 3,000 unit tablet active Not Available Not Available Not Available hydroxyzi ne HCl 25 mg tablet active Medicati on ID: 321327 B rand Name: hydroxyz ine HCl Send Method: E-Prescr ibed Sub s Allowed: subs OK Medic ationGen ericName : hydroxyz ine HCl Not Available Not Available Not Available ammonium lactate 12 % topical cream active Not Available Not Available Not Available Culturell e 10 billion cell capsule 2018 active Medicati on ID: 047744 B rand Name: Culturel le Send Method: E-Prescr ibed Sub s Allowed: subs OK Medic ationGen ericName : Culturel le Not Available Not Available Not Available piroxicam 10 mg capsule active Not Available Not Available Not Available mupirocin 2 % topical ointment active Not Available Not Available Not Available gabapenti n 100 mg capsule active Medicati on ID: 176761 B rand Name: gabapent in Send Method: E-Prescr ibed Sub s Allowed: subs OK Medic ationGen ericName : gabapent in Not Available Not Available Not Available ibuprofen 600 mg tablet 12/12 completed Medicati on ID: [id number] B rand Name: ibuprofe n Send Method: E-Prescr ibed Sub s Allowed: subs OK Medic ationGen ericName : ibuprofe n Medica tion ID: [id number] B rand Name: ibuprofe n Send Method: E-Prescr ibed Sub s Allowed: subs OK Medic ationGen ericName : ibuprofe n Not Available Not Available Not Available ferrous sulfate 325 mg (65 mg iron) tablet,de layed release 2018 active Medicati on ID: 011970 B rand Name: ferrous sulfate Send Method: E-Prescr ibed Sub s Allowed: subs OK Medic ationGen ericName : ferrous sulfate Not Available Not Available Not Available ketoconaz ole 2 % topical cream 2018 active Medicati on ID: [id number] D uration Value: 30 Brand Name: ketocona zole Sen d Method: E-Prescr ibed Sub s Allowed: subs OK Medic ationGen ericName : ketocona zole Not Available Not Available Not Available cefdinir 300 mg capsule 12/12 completed Medicati on ID: 468518 D uration Value: 7 Brand Name: cefdinir Send Method: E-Prescr ibed Sub s Allowed: subs OK Medic ationGen ericName : cefdinir Medicat ion ID: [id number] D uration Value: 7 Brand Name: cefdinir [...] 2 mg capsule active Medicati on ID: 647082 B rand Name: prazosin Send Method: E-Prescr [...] pine ER 100 mg capsule,e xtended release [id number] r 2018 active Medicati on ID: [id number] D uration Value: 7 Brand Name: carbamaz epine Se nd Method: E-Prescr ibed Sub s Allowed: subs OK Medic ationGen ericName : carbamaz epine Not Available Not Available Not Available carbamaze pine ER 300 mg capsule,e xtended release [id number] r 12/12 completed Not Available Not Available [...] HFA aerosol inhaler active Medicati on ID: 049775 B rand Name: Symbicor t Send Method: [...] active Not Available Not Available Not Available Tu[place]in DM 20 mg-400 mg tablet 2018 active Medicati on ID: 078832 B rand Name: Carylin DM Send Method: E-Prescr ibed Sub s Allowed: subs OK Medic ationGen ericName : Tussin DM Not Available Not Available Not Available Anoro Ellipta 62.5 mcg-25 mcg/actua tion powder for inhalatio n INHALE 1 PUFF DAILY active Not Available Not Available No t Available Incruse Ellipta 62.5 mcg/actua tion powder for inhalatio n active Medicati on ID: 661154 B rand Name: Incruse Ellipta Send Method: E-Prescr ibed Sub s Allowed: subs OK Medic ationGen ericName : Incruse Ellipta Not Available Not Available Not Available Spiriva Respimat 1.25 mcg/actua tion solution for inhalatio n active Medicati on ID: [id number] B rand Name: Spiriva Respimat Send Method: [...] Note 1505 SUDHAKAR HAM MD [facility] of [address] [address] 12/13/2023 13:15:07 12/13/2023 16:04:41 Sensorineural hearing loss of bilateral ears [id number] H90.3 53-year-ol d female presents for hearing loss. Audiogram was reviewed showing normal downslopin g to moderate loss bilaterall y, progressed since previous testing in 2019. I did give her medical clearance for hearing aids. Audiologic al evaluation results: 12/13/2023 ight ear:Border line normal hearing sloping into a mild to moderate sensorineu ral hearing loss with excellent speech discrimina tion.Left ear:Border line normal hearing sloping into a mild to moderate sensorineu ral hearing loss with excellent speech discrimina tion. Tympanomet ry:Right Ear:Type ALeft Ear:Type A Health Concerns Section Related Observation LastModified by Organization Detai ls LastModified Time None Recorded Concern Status LastModified by Organization Details LastModified Time None Recorded Advance Directives Directive None Recorded Payers Insurance Date Sequence Insurance Name Policy Number Policy Acosta Covered Member ID Acosta Member ID Guarantor Name 12/19/2023 2 [place] [employer] Arpita Calix [id number] Arpita Mora Calix 12/13/2023 3 [place] [facility] Arpita Mora Calix [id number] Arpita Mora Yogi 12/19/2023 1 [facility] - DOS ON OR AFTER 2022 - MEDICARE ADVANTAGE [place] (MEDICARE REPLACEMENT/AD VANTAGE - PPO) Arpita Calix [id number] Arpita Calix Notes Date Note Type Note Provider Name and Address Organization Details Recorded Time 12/13/2023 text/html 53 yo F with hearing loss. Previously seen March 2020 with normal hearing. Recently out of the hospital for mental health concerns. Did have a fall. Has had several concussions. CT October 2022 at [facility] no acute pathology. Normal mastoids. SUDHAKAR HAM MD [address] [place] [address], [place], [address], [facility] - [facility] 12/13/2023 15:06:11 OBGyn Episode No OBEpisode recorded.
== END 2024-12-31 14:23 | disposition home or self-care (01) ==
LOC: HO.HAP 14:22
PROVIDERS: Visit Provider Physician Assistant
DX: Z13.89 Encounter for screening for other disorder (principal)

== ENCOUNTER 2025-01-22 14:44 | Emergency (ER) | payer MEDICARE, MEDICAID, SELFPAY ==
--- NOTE | ~2025-01-22 | XR_ITS ---
CLINICAL HISTORY: pain, injury 3 view right ankle Comparison: None provided Findings: No acute fractures or dislocations. No significant loss of joint space, osteophytes, or erosions. No ankle effusion. There is soft tissue edema of the ankle. No radiopaque foreign body. IMPRESSION: No acute fracture. This document has been electronically signed by: Cristiane Chavez MD on 01/22/2025 16:04:31
--- NOTE | ~2025-01-22 | XR_ITS ---
CLINICAL HISTORY: pain, injury 3 view right foot Comparison: None provided Findings: No fractures or dislocations. Calcaneal enthesophytes. No ankle effusion. No radiopaque foreign body. IMPRESSION: 1. No acute findings. This document has been electronically signed by: Cristiane Chavez MD on 01/22/2025 16:02:54
--- NOTE | 2025-01-22 14:45 | ED_ITS ---
HPI - General Adult General Chief complaint: Extremity Injury, Lower Stated complaint: ANKLE PAIN/ROLLED WHILE WALKING,FROM [facility] HOME Time Seen by Provider: 01/22/25 16:23 Source: patient and EMS Mode of arrival: EMS Limitations: no limitations History of Present Illness ED Provider: Teena Valdes PA-C HPI narrative: Patient is a 54 year old assigned female at with a history of DM and bipolar disorder presenting to the emergency department today with right ankle pain. Patient states that while she was walking, she rolled her right ankle and felt / heard a pop. Patient denies any dizziness, lightheadedness, abdominal pain, nausea, vomiting, fever, chills, blurry vision, double vision, loss of vision, chest pain, difficulty breathing, shortness of breath, back pain, night sweats, pain with urination, increased urinary frequency, increased urinary urgency, blood in her urine or stool, syncope or a near syncopal episode, bowel incontinence, bladder incontinence, or any other complaints at this time. Relieving factors: movement Exacerbating factors: immobilization Associated symptoms: denies other symptoms Treatments prior to arrival: none Related Data Home Medications ?Medication ?Instructions ?Recorded ?Confirmed umeclidinium 62.5 mcg/actuation 1 inh inhalation DAILY 08/01/21 11/04/24 blister powder for inhalation (Incruse Ellipta) cholecalciferol (vitamin D3) 25 25 mcg PO DAILY 11/04/24 mcg (1,000 unit) tablet docusate sodium 100 mg capsule 200 mg PO DAILY 3 11/04/24 gabapentin 400 mg capsule 400 mg PO TID 12/19/2211/04 metformin 500 mg tablet,extended 1,000 mg PO BEDTIME 0 12/19/22 11/04/24 release 24 hr pantoprazole 40 mg tablet,delayed 40 mg PO BID@0630,16 30 12/19/22 11/04/24 release fluticasone propionate 50 2 spray intranasal BID 12/2011/04/24 mcg/actuation nasal spray,suspension ferrous sulfate 325 mg (65 mg 325 mg PO BEDTIME 11/04/24 iron) tablet (FeroSul) sitagliptin phosphate 100 mg 100 mg PO DAILY 03/10/24 11/04/24 tablet (Januvia) Lactobacillus rhamnosus GG 15 1 cap PO DAILY 08/16/24 11/04/24 billion cell sprinkle capsule (Culturelle) albuterol sulfate 90 mcg/actuation 2 puff inhalation Q 6H PRN Wheezing 08/16/24 11/04/24 aerosol inhaler (Ventolin HFA) ammonium lactate 12 % topical cream 1 appl topical BED TIME 08/16/24 11/04/24 budesonide-formoterol HFA 160 2 puff inhalation BID 11/04/24 mcg-4.5 mcg/actuation aerosol inhaler carbamazepine 200 mg 600 mg PO BID 08/16/2411/04 tablet,extended release,12 hr cyclobenzaprine 7.5 mg tablet 7.5 mg PO BEDTIME 11/04/24 dicyclomine 10 mg capsule 10 mg PO Q6H PRN Abdominal P ain 08/16/24 11/04/24 famotidine 40 mg tablet 40 mg PO BID 08/16/24 insulin glargine 100 unit/mL (3 10 unit subcut BEDTIME 08/16/24 11/04/24 mL) subcutaneous pen (Lantus Solostar U-100 Insulin) ipratropium 0.5 mg-albuterol 3 mg 3 ml inhalation BID Shortness Of 08/16/24 11/04/24 (2.5 mg base)/3 mL nebulization Breath soln latanoprost 0.005 % eye drops 2 drp ophthalmic (eye) B EDTIME 08/16/24 11/04/24 lidocaine 4 % topical patch 1 patch topical DAILY 07/2311/04/24 (Lidocaine Pain Relief) prazosin 2 mg capsule 2 mg PO BEDTIME 08/16/24 quetiapine 200 mg tablet 400 mg PO BEDTIME 08/16/24 0 11/04/24 quetiapine 50 mg tablet 25 mg PO Q8H PRN Anxiety 11/04/24 acetaminophen 500 mg tablet 1,000 mg PO Q8H PRN pain/f ever 11/04/24 11/04/24 calcium carbonate (Tums Ultra) 400 mg PO Q8H PRN Indig estion 11/04/24 11/04/24 camphor-menthol 11 %-10 % topical 1 appl topical Q6H P RN body pain 11/04/24 11/04/24 cream (Sharon Sinclair) carboxymethylcellulose sodium 1 % 2 drp ophthalmic (ey e) QID 11/04/24 11/04/24 eye liquid gel drops cetirizine 10 mg tablet 10 mg PO DAILY 11/04/2410/20 fluoride (sodium) 1.1 % dental 1 appl dental BID 11/0411/04/24 paste (PreviDent 5000 Dry Mouth) guaifenesin 200 mg/5 mL oral liquid 400 mg PO Q6H PRN Cough 11/04/24 11/04/24 ibuprofen 600 mg tablet 600 mg PO Q6H PRN fever or p ain 11/04/24 11/04/24 lactase 3,000 unit tablet 6,000 unit PO Q6H PRN dairy meal 11/04/24 11/04/24 or snack ondansetron 4 mg disintegrating 4 mg PO Q8H PRN Nausea 11/04/24 11/04/24 tablet Previous Rx's ?Medication ?Instructions ?Recorded multivitamin (Daily-Emil tablet) 1 tab PO DAILY 30 day s #30 tabs 08/15/21 trazodone 100 mg tablet 200 mg (2 x 100 mg) PO BEDTI ME #0 01/24/22 tabs prazosin 5 mg capsule 5 mg PO BEDTIME 30 days #30 caps 01/01/23 Allergies Allergy/AdvReac Type Severity Reaction Status Date / Time sulfamethoxazole (From Allergy Intermediate Rash Verified 01/22/25 15:00 Bactrim) trimethoprim (From Bactrim) Allergy Intermediate Rash Verified 01/22/25 15:00 adhesive tape Allergy Rash Verified 01/22/25 15:00 Sully And Derivatives Allergy Gastrointestinal Verified 01/22/25 15:00 Upset Benzodiazepines AdvReac Intermediate Hives Verified 01/22/25 15:00 diazepam (From Valium) AdvReac Intermediate Irritable Verified 01/22/25 15:00 Review of Systems Constitutional: Constitutional: Reports no additional constitutional complaints, Denies chills, Denies fever(s) and Denies night sweats Eyes: Eyes: Reports no additional eye complaints, Denies blurry vision, Denies change in vision, Denies diplopia, Denies eye discharge, Denies loss of vision and Denies eye pain ENT: Denies dizziness Cardiovascular: Cardiovascular: Reports no additional cardiovascular complaints, Denies chest pain, Denies lightheadedness, Denies Loss of Consciousness and Denies dyspnea Respiratory: Respiratory: Reports no additional respiratory complaints and Denies dyspnea Gastrointestinal: Gastrointestinal: Reports no additional gastrointestinal complaints, Denies abdominal pain, Denies melena, Denies hematochezia, Denies change in bowel habits and Denies change in stool character Genitourinary: Genitourinary: Denies hematuria, Denies urinary frequency, Denies dysuria, Denies urinary incontinence, Denies urinary hesitancy and Denies urinary urgency Musculoskeletal: Musculoskeletal: Reports no additional musculoskeletal complaints, Denies numbness and Denies tingling Comments: right ankle pain Neurologic: Denies dizziness, Denies loss of vision, Denies numbness and D enies tingling Psychiatric: Psychiatric: Reports no additional psychiatric complaints Endocrine: Endocrine: Reports no additional endocrine complaints Hematologic/Lymphatic: Hematologic/Lymphatic: Reports no additional hematologic/lymphatic complaints Allergic/Immunologic: Allergic/Immunologic: Reports no additional allergic/immunologic complaints [facility] Past Medical History Attestation statement: The following information was validated with the patient. Source: old records reviewed and nursing notes reviewed Medical History Chest tightness Suicidal ideation GERD (gastroesophageal reflux disease) Sleep apnea Asthma Hearing loss Diabetes mellitus, type 2 Social History Social History Household Members: Other Household Members Other:: assisted Housing: Other Housing Other:: [facility] Do you presently have visiting nurse or other home services: Yes Alcohol intake: never Comment: pt on 5 min checks Patient Tobacco Use Status: Never used Tobacco e-Cigarette/Vaping Use: Never Used Advance Directives: No Advance Directives Information Provided: No Do you have a plan to hurt others: No Plan service: No Sexual orientation: Straight/Heterosexual Physical Exam ED Vital Signs: Vital Signs - 24 hr 01/22/25 14:56 Temperature 97.9 F Pulse Rate 88 Respiratory Rate 17 Blood Pressure 96/73 Pulse Oximetry 94 Oxygen Delivery Method Room Air BMI result Body Mass Index 44.8 Const General: cooperative, no acute distress, alert and awake Nutritional Appearance: well nourished Orientation/consciousness: patient oriented x3 HENMT Head: Yes normal to inspection and Yes atraumatic Ears: hearing grossly normal bilaterally and external ears normal General nose exam: Normal external nose present, no nasal discharge noted and no epistaxis Face and sinus: Yes normal facial exam, No abrasion and No laceration Mouth: Normal oral and palatal mucosa present, no drooling and no muffled voice Eyes General: appearance normal, both eyes and all related structures Periorbital: periorbital findings normal Eyelids: Yes eyelids normal Conjunctivae: conjunctivae normal Pupils: Equal, round and reactive pupils present EOM: EOMs intact bilaterally Neck Neck: Yes normal visual inspection, Yes full ROM and Yes no lymphadenopathy Resp Effort & Inspection: normal respiratory effort and able to speak in complete sentences Neuro General: patient oriented x3, moves all extremities and CN's II-XI intact bilaterally Cranial nerves: Yes Equal, round and reactive pupils present Cognition (Neuro): normal cognition Extrem General: Yes normal to inspection, Yes full ROM and Yes capillary refill normal Psych Appearance: grossly normal Mental Status: mental status grossly normal Affect: normal affect Attitude: cooperative Thought process: Normal thought process present Thought content: Normal thought content present Insight: Good insight present (Psych) Procedures Orthopedic Splinting/Casting Injury #1: Side: right Lower Extremity Injury Location: ankle Lower Extremity Immobilizer: boot orthosis Medical Decision Making Medical Decision Making MDM Narrative: Patient is a 54 year old assigned female at with a history of DM and bipolar disorder presenting to the emergency department today with right ankle pain. Patient's physical exam was unremarkable. Patient's right foot and ankle x-rays showed no acute process. I explained my physical exam findings as well as all test results to the patient. I answered all questions asked by the patient. Patient's right ankle was placed in a walking boot, without incident. Patient's PMS was intact prior to and after boot placement. I stressed the importance of the patient taking her medication as directed (either prescribed or as the over the counter packaging recommends). I stressed the importance of the patient foll owing up with her primary care provider and the orthopedic team. I stressed the importance of the patient returning to the emergency department immediately if her symptoms were to worsen or if she were to develop any dizziness, shortness of breath, difficulty breathing, chest pain, blurry vision, loss of vision, nausea, vomiting, abdominal pain, fever, chills, back pain, or any other complaints. Patient verbalized agreement and understanding with this treatment plan and discharge. Differential Diagnosis Differential Diagnoses: The differential diagnosis associated with the presentation includes Ankle fracture Ankle sprain Ankle strain Admission/Observation Consideration of admission/observation: Escalation of care including admission/observation considered Patient would have been admitted to the hospital had her work up had any findings where hospital admission was appropriate and her clinical presentation warranted hospital admission. Independent Interpretation I performed an independent interpretation of an: Plain X-Ray Interpretation: My interpretation is in agreement with the radiologist's impression of these imaging studies. CLINICAL HISTORY: pain, injury 3 view right ankle Comparison: None provided Findings: No acute fractures or dislocations. No significant loss of joint space, osteophytes, or erosions. No ankle effusion. There is soft tissue edema of the ankle. No radiopaque foreign body. IMPRESSION: No acute fracture. This document has been electronically signed by: Cristiane Chavez MD on 01/22/2025 16:04:31 Dictated By: Cristiane Chavez MD Signed By: Electronically signed by Cristiane Chaevz MD 01/22/25 0889 CLINICAL HISTORY: pain, injury 3 view right foot Comparison: None provided Findings: No fractures or dislocations. Calcaneal enthesophytes. No ankle effusion. No radiopaque foreign body. IMPRESSION: 1. No acute findings. This document has been electronically signed by: Cristiane Chavez MD on 01/22/2025 16:02:54 Dictated By: Cristiane Chavez MD Signed By: Electronically signed by Cristiane Chavez MD 01/22/25 1604 Radiology Impression Discussion of test interpretation with radiology: I have reviewed the radiologist's reading. Independent Historian Clinical information obtained from an independent historian. History obtained from or confirmed by: EMS (EMS provided additional history and confirmed the history provided by the patient. ) Discharge Plan Discharge Clinical Impression: Ankle sprain Patient Disposition: Home, Self-Care Instructions: Ankle Sprain (DC), Walking Boot (ED) Additional Instructions: Wear your walking boot when ambulating. Follow up with your primary care provider and the orthopedic team. Return to the emergency department immediately if your symptoms worsen or if you develop any numbness, tingling, dizziness, shortness of breath, difficulty breathing, chest pain, blurry vision, loss of vision, nausea, vomiting, abdominal pain, fever, chills, back pain, or any other complaints. Please see the information below about our Patient Portal. If you are not yet enrolled in the [facility] Patient Portal, you will receive an enrollment email invitation following your visit to any [facility] setting. You may also self-enroll in the Patient Portal by visiting our website: [email or web address] The following information is required to access the Patient Portal: - Your [facility] Medical Record Number - Your personal home email address (must match what is in your electronic medical record, Registration staff can assist with this) - Name - Date of Capabilities of the Patient Portal: - Message some providers - View upcoming appointments - Access your health summary, medical history, and visit history - View current conditions and allergies - View procedure and lab results - View your medications, including guidelines, side effects, and precautions - Complete pre-appointment questionnaires requested by your provider - Ready summary reports of your office visits and procedures To access the Patient Portal Mobile [employer], follow these directions: - Search [employer] in the [employer] Store or [employer] Store - Download the [employer] - Search for [facility] - Enter your login/password Prescriptions: No Action trazodone 100 mg Tablet 200 mg PO BEDTIME Qty: 0 0RF Incruse Ellipta 62.5 mcg/actuation Blister With Device 1 inh INHALATION DAILY multivitamin [Daily-Emil] Tablet 1 tab PO DAILY 30 Days Qty: 30 0RF latanoprost 0.005 % drops 2 drp ophthalmic (eye) BEDTIME famotidine 40 mg tablet 40 mg PO BID quetiapine 200 mg tablet 400 mg PO BEDTIME carbamazepine 200 mg tablet extended release 12 hr 600 mg PO BID insulin glargine [Lantus Solostar U-100 Insulin] 100 unit/mL (3 mL) insulin pen 10 unit subcut BEDTIME ipratropium-albuterol 0.5 mg-3 mg(2.5 mg base)/3 mL solution for nebulization 3 ml inhalation BID Culturelle 15 billion cell capsule, sprinkle 1 cap PO DAILY lidocaine [Lidocaine Pain Relief] 4 % Adhesive Patch,Medicated 1 patch TOPICAL DAILY Rx Instructions: to back ammonium lactate 12 % Cream 1 appl TOPICAL BEDTIME Rx Instructions: to both feet albuterol sulfate [Ventolin HFA] 90 mcg/actuation Hfa Aerosol Inhaler 2 puff INHALATION Q6H PRN (Reason: Wheezing) dicyclomine 10 mg Capsule 10 mg PO Q6H PRN (Reason: Abdominal Pain) prazosin 2 mg capsule 2 mg PO BEDTIME Rx Instructions: take with 5 mg for a total 7 mg daily quetiapine 50 mg tablet 25 mg PO Q8H PRN (Reason: Anxiety) budesonide-formoterol 160-4.5 mcg/actuation HFA aerosol inhaler 2 puff INHALATION BID cyclobenzaprine 7.5 mg tablet 7.5 mg PO BEDTIME lactase 3,000 unit Tablet 6,000 unit PO Q6H PRN (Reason: dairy meal or snack) ondansetron 4 mg tablet,disintegrating 4 mg PO Q8H PRN (Reason: Nausea) cetirizine 10 mg Tablet 10 mg PO DAILY calcium carbonate [Tums Ultra] 400 mg calcium (1,000 mg) Tablet,Chewable 400 mg PO Q8H PRN (Reason: Indigestion) carboxymethylcellulose sodium 1 % Drops, Liquid Gel 2 drp OPHTHALMIC (EYE) QID guaifenesin 200 mg/5 mL Liquid 400 mg PO Q6H PRN (Reason: Cough) fluoride (sodium) [PreviDent 5000 Dry Mouth] 1.1 % Paste 1 appl DENTAL BID ibuprofen 600 mg tablet 600 mg PO Q6H PRN (Reason: fever or pain) acetaminophen 500 mg Tablet 1,000 mg PO Q8H PRN (Reason: pain/fever) Sharon Sinclair 11-10 % Cream 1 appl TOPICAL Q6H PRN (Reason: body pain) gabapentin 400 mg capsule 400 mg PO TID metformin 500 mg tablet extended release 24 hr 1,000 mg PO BEDTIME cholecalciferol (vitamin D3) 25 mcg (1,000 unit) tablet 25 mcg PO DAILY pantoprazole 40 mg tablet,delayed release (DR/EC) 40 mg PO BID@0630,1630 docusate sodium 100 mg capsule 200 mg PO DAILY fluticasone propionate 50 mcg/actuation spray,suspension 2 spray intranasal BID prazosin 5 mg capsule 5 mg PO BEDTIME 30 Days Qty: 30 0RF Rx Instructions: take with 2 mg for a total 7 mg daily ferrous sulfate [FeroSul] 325 mg (65 mg iron) tablet 325 mg PO BEDTIME Januvia 100 mg tablet 100 mg PO DAILY Referrals: [facility] Orthopedic Surgeons [Provider Group] Referral Note: Call to establish and follow up with the orthopedic team. Print Language: Burundian
[2025-01-22 14:56] VITALS: BP 140/96; BP 96/73; PULSE 88; PULSE 97; RESP 17; TEMP 36.6; O2SAT 94; O2SAT 97; BMI 44.8
[2025-01-22 17:56] VITALS: BP 110/86; PULSE 88; RESP 17; TEMP 36.6; O2SAT 98
[2025-01-22 17:58] VITALS: BP 110/86; PULSE 88; RESP 17; TEMP 36.6; O2SAT 98
== END 2025-01-22 17:59 | disposition home or self-care (01) ==
PROVIDERS: Emergency Provider Emergency Medicine Emergency Medical Services
DX: S93.401A Sprain of unspecified ligament of right ankle, initial encounter (principal); M79.671 Pain in right foot; X58.XXXA Exposure to other specified factors, initial encounter; Y93.9 Activity, unspecified; Y92.9 Unspecified place or not applicable; Y99.8 Other external cause status
CPT/HCPCS: 73610; 73630; 99283; 99284

== ENCOUNTER → 2025-01-22 14:46 | Outpatient (BNV) | payer MEDICARE, MEDICAID, SELFPAY | PROVIDERS: Emergency Provider Emergency Medicine Emergency Medical Services; Visit Provider Nuclear Medicine | DX: M25.571 Pain in right ankle and joints of right foot (principal); M77.31 Calcaneal spur, right foot | CPT/HCPCS: 73610; 73630 ==

== ENCOUNTER 2025-02-15 18:29 | Emergency (ER) | payer MEDICARE, MEDICAID, SELFPAY ==
--- NOTE | ~2025-02-15 | XR_ITS ---
CLINICAL HISTORY: pain 1 view chest x-ray Comparison: CR/WV/SR - XR RIBS 4 VIEWS BILATERAL WITH PA CHEST - 11/06/24 11:00 EDT Findings: Lungs are clear. Lung volumes are low. No effusion or pneumothorax. Heart size is normal. S shaped scoliosis of the thoracic spine. IMPRESSION: 1. No acute findings. This document has been electronically signed by: Elio Suarez MD on 02/15/2025 19:46:58
--- NOTE | 2025-02-15 18:34 | ECG_ITS ---
Test Reason : CP Blood Pressure : */* mmHG Vent. Rate : 88 BPM Atrial Rate : 88 BPM P-R Int : 192 ms QRS Dur : 88 ms QT Int : 382 ms P-R-T Axes : 21 -31 33 degrees QTcB Int : 462 ms Normal sinus rhythm Left axis deviation Low voltage QRS Possible Anterolateral infarct (cited on or before 02-Apr-2024) Abnormal ECG When compared with ECG of 02-Apr-2024 18:33, Questionable change in initial forces of Lateral leads Referred By: Generic ED Physician Electronically Signed By: MADELEINE HALE MD
[2025-02-15 18:40] VITALS: BP 167/86; BP 210/140; PULSE 102; PULSE 94; RESP 18; TEMP 37; O2SAT 96; O2SAT 97; BMI 48.1
[2025-02-15 19:53] LABS: MANUAL DIFF FLAG NO
[2025-02-15 19:55] LABS: Hematocrit 36.5 % (37.0-47.0); Hemoglobin 12.5 g/dl (12.0-16.0); Imm Gran Abs Auto 0.07 X10*3/uL (0.00-0.03); Imm Gran Pct Auto 0.7 % (0.0-0.4); Lymphocytes Absolute Auto 2.1 X10*3/uL (1.2-4.9); Mean Corpuscular HGB Conc 34.2 g/dl (31.0-35.0); Mean Corpuscular Hemoglobin 28.7 pg (27.0-33.0); Mean Corpuscular Volume 83.7 fL (80.0-98.0); NRBC Abs Auto 0.000 X10*3/uL (0.0-0.012); NRBC Pct Auto 0.0 /100WBC (0.0-0.2); Platelet Count 212 X10*3/uL (160-400); Red Blood Count 4.36 X10*6/uL (4.20-5.50); White Blood Count 10.6 X10*3/uL (4.8-10.8)
[2025-02-15 20:08] LABS: Alanine Aminotransferase 17 U/L (0-31); Albumin Level 4.1 g/dL (3.5-5.0); Alkaline Phosphatase 111 U/L (39-117); Anion Gap 13 (12-20); Aspartate Amino Transferase 17 U/L (5-31); Blood Urea Nitrogen 14 mg/dL (9-16); Calcium 8.8 mg/dL (8.4-10.2); Carbon Dioxide 26 mmol/L (22-29); Chloride 108 mmol/L (96-108); Creatinine Clr Calc Pharmacy 119.2; Estimated Glomerular Filt Rate > 60; Magnesium 2.1 mg/dL (1.6-2.6); Potassium 3.6 mmol/L (3.3-5.1); Sodium 143 mmol/L (135-145); Total Protein 7.1 g/dL (6.5-8.0)
[2025-02-15 20:09] LABS: Acetaminophen LAB < 3 mcg/mL (<30); Salicylate < 5.0 mg/dL (15-30)
[2025-02-15 20:15] LABS: Troponin-I High Sensitivity 4.6 ng/L (<3.5-17.0)
[2025-02-15 20:20] VITALS: BP 151/76; PULSE 85; RESP 19; TEMP 36.8; O2SAT 93
--- OUTSIDE RECORDS SUMMARY | 2025-02-15 20:22 | XMS_ITS | Encounter Summary ---
Author Organization [facility] Address [address] [place] [address] Phone Care Team Providers Care Mental Health Nurse Practitioner Name Role Phone Lynn Abad MD Primary Care Provider [phone] Nellie Morales WASHER MACHINE Primary Care Provider [phone] Unknown, Unknown Primary Care Provider Melissa Ordonez Primary Care Provider [phone] Ethan Ty Primary Care Provider [phone] Rosita Noble WASHER MACHINE Primary Care Provider [phone] Reason for Referral * Occupational Therapy (Routine) - Closed Specialty Diagnoses / Procedures Referred By Sammie kingsley Referred To Contact Occupational Therapy Diagnoses Encounter for rehabilitation RIGHT DE QUERVAIN TENDONITIS Procedures Treat Roberta Gonzalez MD Phone: tel: fax: [email or web address] [address] [place] [address] Phone: tel: Referral ID Status Reason Start Date Expiration Date Visits Re quested Visits Authorized [id number] Closed 05/20/2017 05/30/2018 99 [phone] Encounter Details Date Type Department Care Team (Latest Contact Info) Description 05/30/2017 Transcribe Orders [facility] [address] [place] [address] Roberta Gonzalez MD [address] [place] [address] Orthopedics & Sports Medicine, [facility] [place] [address] [email or web address] Encounter for rehabilitation (Primary Dx) Social History Tobacco Use Types Packs/Day Years Used Date Smoking Tobacco: Never Assessed Comments Unknown Sex and Gender Information Value Date Recorded Sex Assigned at Female 07/29/2017 9:44 AM EST Legal Sex Female 6:05 PM EST Gender Identity Female 07/29/2017 9:44 AM EST Sexual Orientation Straight 07/29/2017 9: 44 AM EST documented as of this encounter Plan of Treatment Upcoming Encounters Date Type Department Care Team (Late st Contact Info) Description 02/17/2025 11:30 AM EDT Office Visit [facility] [address] [place] [phone] Stacy Garcia MD [address] [place] [address], [address] [place] [phone] 03/19/2025 11:00 AM EDT Office Visit [facility] at [address] [address] Jane Rabago MBBS [address] [place] [phone] 03/19/2025 12:00 PM EDT Social Work [facility] at [address] [address] Jane Rabago MBBS [address] [place] [id number] Scheduled Referrals Name Type Priority Associated Diagnoses Orde r Schedule Ambulatory referral to [facility] Occupational Therapy Outpatient Referral Routine Encounter for rehabilitation Ordered: 05/30/2017 documented as of this encounter Visit Diagnoses Diagnosis Encounter for rehabilitation- Primary Status post right breast lumpectomy- Primary Abnormal ultrasound of breast documented in this encounter Additional Health Concerns Infection Onset Date Last Indicated Resolved Time CoV-Risk 05/18/2020 05/22/2020 06/01/2020 1:24 AM EST CoV-Risk 06/21/2020 06/24/2020 07/05/2020 1:25 AM EST CoV-Risk 08/31/2020 09/02/2020 09/10/2020 1:25 AM EST CoV-Risk 10/11/2020 10/11/2020 10/21/2020 1:24 AM EDT CoV-Risk 02/19/2022 02/19/2022 03/02/2022 1:22 AM EDT CoV-Exposed 08/31/2022 08/31/2022 09/05/2022 1:47 AM EST CoV-Risk Comment:Cov exposed 09/01/2022 09/02/2022 09/04/2022 6:[address] CoV-Risk 09/18/2022 09/18/2022 09/18/2022 11:3 3 AM EST COVID-19 09/18/2022 09/18/2022 10/09/2022 1:22 AM EDT CoV-Risk 01/14/2023 01/14/2023 01/25/2023 1:21 AM EDT CoV-Risk Comment:Neg covid 11/14/2023 11/14/2023 11/14/2023 2:43 PM E DT CoV-Risk Comment:Neg covid 11/18/2023 11/18/2023 11/19/2023 9:58 AM E DT CoV-Risk Comment:2 neg covid 01/30/2024 01/30/2024 02/04/2024 9:47 AM E DT CoV-Risk 02/17/2024 02/17/2024 02/28/2024 1:23 AM EDT CoV-Risk 07/27/2024 08/08/2024 08/19/2024 1:21 AM EST documented as of this encounter Care Teams Mental Health Nurse Practitioner Relationship Specialty Start Date End Date Lynn Abad MD PCP - General 10/19/17 2/15/22 Nellie Morales NP PCP - General Family Medicine 09/06/21 02/07/22 Unknown, Unknown, PCP - General 02/08/22 05/31/22 Melissa Castrejon PA [address] [place] [id number] [email or web address] PCP - General Unknown Provider Specialty 06/01/22 Ethan Ty PA [address] [place] [id number] PCP - General Physician Small Business Director 04/13/24 01/07/25 Rosita Noble NP [address] [place] [phone] PCP - General Nurse Practitioner 01/08/25 documented as of this encounter Additional Source Comments The information contained in this document represents components of the legal health record. It is not the complete legal health record.[facility]
--- NOTE | 2025-02-16 00:32 | ED.GENADULT ---
HPI - General Adult General Chief complaint: Psychiatric Symptoms Stated complaint: SI, plan to cut wrists, non med compliant Time Seen by Provider: 02/15/25 19:24 Source: patient and EMS Limitations: language barrier History of Present Illness ED Provider: Naila Pierre PA-C HPI narrative: 54-year-old female with a history of bipolar disorder, diabetes, morbid obesity, asthma, GERD, sleep apnea who presents with SI. Patient was just discharged from [facility] today, she returned to her correction. Patient states she was involved in a verbal argument with her parents, and 1 of her roommates, which exacerbated her anxiety. Patient began verbalizing thoughts of wanting to ?break a window in use the glass to slit her wrists?. Patient states she has been off her meds for unclear duration of time. Upon arrival, the patient began complaining of chest pain, and that her blood pressure was elevated. Related Data Home Medications ?Medication ?Instructions ?Recorded ?Confirmed umeclidinium 62.5 mcg/actuation 1 inh inhalation DAILY 08/01/21 02/16/25 blister powder for inhalation (Incruse Ellipta) cholecalciferol (vitamin D3) 25 25 mcg PO DAILY 12/19/22 02/16/25 mcg (1,000 unit) tablet docusate sodium 100 mg capsule 200 mg PO DAILY 12/19/22 02/16/25 gabapentin 400 mg capsule 400 mg PO TID 12/19/22 02/16/25 metformin 500 mg tablet,extended 1,000 mg PO QAM 12/19/22 02/16/25 release 24 hr pantoprazole 40 mg tablet,delayed 40 mg PO BID@0630,1630 12/19/22 02/16/25 release fluticasone propionate 50 2 spray intranasal BID 12/20/22 02/16/25 mcg/actuation nasal spray,suspension ferrous sulfate 325 mg (65 mg 325 mg PO BEDTIME 03/10/24 02/16/25 iron) tablet (FeroSul) sitagliptin phosphate 100 mg 100 mg PO DAILY 03/10/24 02/16/25 tablet (Januvia) Lactobacillus rhamnosus GG 15 1 cap PO DAILY 08/16/24 02/16/25 billion cell sprinkle capsule (Culturelle) albuterol sulfate 90 mcg/actuation 2 puff inhalation Q6H PRN Wheezing 08/16/24 02/16/25 aerosol inhaler (Ventolin HFA) ammonium lactate 12 % topical cream 1 appl topical BEDTIME 08/16/24 02/16/25 budesonide-formoterol HFA 160 2 puff inhalation BID 08/16/24 02/16/25 mcg-4.5 mcg/actuation aerosol inhaler carbamazepine 200 mg 200 mg PO TID bipolar disorder 08/16/24 02/16/25 tablet,extended release,12 hr cyclobenzaprine 7.5 mg tablet 7.5 mg PO BEDTIME 08/16/24 02/16/25 dicyclomine 10 mg capsule 10 mg PO Q6H PRN Abdominal Pain 08/16/24 02/16/25 famotidine 40 mg tablet 40 mg PO BID 08/16/24 02/16/25 insulin glargine 100 unit/mL (3 10 unit subcut BEDTIME 08/16/24 11/04/24 mL) subcutaneous pen (Lantus Solostar U-100 Insulin) ipratropium 0.5 mg-albuterol 3 mg 3 ml inhalation BID Shortness Of 08/16/24 02/16/25 (2.5 mg base)/3 mL nebulization Breath soln latanoprost 0.005 % eye drops 2 drp ophthalmic (eye) BEDTIME 08/16/24 02/16/25 lidocaine 4 % topical patch 1 patch topical DAILY back pain 08/16/24 02/16/25 (Lidocaine Pain Relief) prazosin 2 mg capsule 2 mg PO BEDTIME 08/16/24 02/16/25 quetiapine 200 mg tablet 300 mg PO BEDTIME 08/16/24 02/16/25 quetiapine 50 mg tablet 25 mg PO Q8H PRN Anxiety 08/16/24 02/16/25 acetaminophen 500 mg tablet 1,000 mg PO Q8H PRN pain/fever 11/04/24 02/16/25 calcium carbonate (Tums Ultra) 1,000 mg PO Q8H PRN Indigestion 11/04/24 02/16/25 camphor-menthol 11 %-10 % topical 1 appl topical Q6H PRN body pain 11/04/24 02/16/25 cream ([place]) cetirizine 10 mg tablet 10 mg PO DAILY 11/04/24 02/16/25 fluoride (sodium) 1.1 % dental 1 appl dental BID 11/04/24 02/16/25 paste (PreviDent 5000 Dry Mouth) guaifenesin 200 mg/5 mL oral liquid 400 mg PO Q6H PRN Cough 11/04/24 02/16/25 ibuprofen 600 mg tablet 600 mg PO Q6H PRN fever or pain 11/04/24 02/16/25 lactase 3,000 unit tablet 6,000 unit PO Q6H PRN dairy meal 11/04/24 02/16/25 or snack ondansetron 4 mg disintegrating 4 mg PO Q8H PRN Nausea 11/04/24 02/16/25 tablet carbamazepine 400 mg 400 mg PO BID 02/16/25 02/16/25 tablet,extended release,12 hr hydroxyzine pamoate 50 mg capsule 100 mg PO BEDTIME anxiety 02/16/25 02/16/25 lorazepam 0.5 mg tablet 0.5 mg PO DAILY PRN Anxiety 02/16/25 02/16/25 polyvinyl alcohol-povidone (PF) 1 drp ophthalmic (eye) QID dry eye 02/16/25 02/16/25 1.4 %-0.6 % eye drops in a dropperette Previous Rx's ?Medication ?Instructions ?Recorded multivitamin (Daily-Emil tablet) 1 tab PO DAILY 30 days #30 tabs 08/15/21 trazodone 100 mg tablet 200 mg (2 x 100 mg) PO BEDTIME #0 01/24/22 tabs prazosin 5 mg capsule 5 mg PO BEDTIME 30 days #30 caps 01/01/23 Allergies Allergy/AdvReac Type Severity Reaction Status Date / Time sulfamethoxazole (From Allergy Intermediate Rash Verified 02/15/25 18:52 Bactrim) trimethoprim (From Bactrim) Allergy Intermediate Rash Verified 02/15/25 18:52 adhesive tape Allergy Rash Verified 02/15/25 18:52 [place] And Derivatives Allergy Gastrointestinal Verified 02/15/25 18:52 Upset Benzodiazepines AdvReac Intermediate Hives Verified 02/15/25 18:52 diazepam (From Valium) AdvReac Intermediate Irritable Verified 02/15/25 18:52 Review of Systems Review of Systems: Yes all other systems are reviewed and are negative Constitutional: Constitutional: Denies fatigue and Denies fever(s) Cardiovascular: Cardiovascular: Reports chest pain and Denies dyspnea Respiratory: Respiratory: Denies chest congestion, Denies cough and Denies dyspnea Gastrointestinal: Gastrointestinal: Denies abdominal pain, Denies nausea and Denies vomiting Psychiatric: Psychiatric: Denies homicidal ideation and Reports suicidal ideation Endocrine: Endocrine: Denies fatigue [facility] Past Medical History Attestation statement: The following information was validated with the patient. Medical History Chest tightness Suicidal ideation GERD (gastroesophageal reflux disease) Sleep apnea Asthma Hearing loss Diabetes mellitus, type 2 Social History Social History Household Members: Other Household Members Other:: correction Housing: Other Housing Other:: [facility] home Do you presently have visiting nurse or other home services: Yes Alcohol intake: never Comment: pt on 5 min checks Patient Tobacco Use Status: Never used Tobacco e-Cigarette/Vaping Use: Never Used Advance Directives: No Advance Directives Information Provided: No Do you have a plan to hurt others: No Plan service: No Sexual orientation: Straight/Heterosexual Physical Exam ED Exam Exam: Alert, appears older than stated age Vital Signs: Vital Signs - 24 hr 02/15/25 18:40 02/15/25 20:20 02/16/25 04:22 Temperature 98.6 F 98.3 F Pulse Rate 94 85 71 Respiratory Rate 18 19 16 Blood Pressure 167/86 H 151/76 H 124/58 L Pulse Oximetry 97 93 96 Oxygen Delivery Method Room Air Room Air Room Air 02/16/25 04:33 02/16/25 08:23 Temperature 97.8 F Pulse Rate 103 H Respiratory Rate 20 Blood Pressure 124/58 L 116/65 Pulse Oximetry 96 Oxygen Delivery Method Room Air BMI result Body Mass Index 48.1 Const Orientation/consciousness: patient oriented x3 Resp Effort & Inspection: normal respiratory effort Cardio Other: Normal peripheral perfusion Skin Other: Warm dry no rash Neuro General: patient oriented x3, gait normal, no focal motor deficits and CN's II-XI intact bilaterally Psych Other: Cooperative here in the emergency room, very anxious Course Reevaluation(s) Reevaluation #1: Speaking with the Corina from the care team, she assessed the patient. She also spoke with staff at the correction. Again, the patient was just released today, it also appears that the patient's complaints are at her baseline, that she is somewhat chronically suicidal. The plan was to discharge her back to her correction, the patient stated ?if you send me back I will kill myself?. The plan is to hold the patient over for the morning team to reassess, at that point we can obtain collateral information from [facility], and against speak with daytime staff from the correction. Time: 00:53 Date: 02/16/25 Provider: DAVON Gupta Patient in physician observation for psychiatric evaluation.? No acute events reported overnight. No current complaints. VS stable.? Patient is in bed search status/pending CARE team evaluation. Will continue to monitor. Time: 00:53 Reevaluation #2: The patient was signed out to me at change of shift this morning. The patient has presented with a complaint of suicidal ideation. The patient was seen by the care team this morning. It was not felt that her presentation is indicative of significant risk. The patient will therefore be discharged back to her correction. Time: 09:22 Medications Administered Discontinued Medications Generic Name Dose Route Start Last Admin Trade Name Freq PRN Reason Stop Dose Admin Albuterol Sulfate 2 puff 02/16/25 02:23 02/16/25 04:38 Albuterol Sulfate 90 Mcg 8 Gm Inhaler INHALE 2 puff Q6H PRN Administration Wheezing Albuterol/Ipratropium 3 ml 02/16/25 09:00 02/16/25 08:24 Albuterol/Iprat 2.5/0.5mg 3 Ml Ampul.Neb INHALE Not Given BID DORCAS Carbamazepine 200 mg 02/16/25 02:30 02/16/25 04:41 Carbamazepine Er 200 Mg Tab.Er.12h PO Not Given TID@0800,170 DORCAS Carbamazepine 400 mg 02/16/25 08:00 02/16/25 08:21 Carbamazepine Er 200 Mg Tab.Er.12h PO 400 mg BID@ DORCAS Administration Carbamazepine 200 mg 02/16/25 04:24 02/16/25 08:48 Carbamazepine Er 200 Mg Tab.Er.12h PO 200 mg TID@0800,170,1999 DORCAS Administration Cyclobenzaprine HCl 7.5 mg 02/16/25 02:35 02/16/25 04:34 Cyclobenzaprine Hcl 5 Mg Tablet PO 7.5 mg BEDTIME DORCAS Administration Docusate Sodium 200 mg 02/16/25 09:00 02/16/25 08:20 Docusate Sodium 100 Mg Capsule PO 200 mg DAILY DORCAS Administration Famotidine 40 mg 02/16/25 09:00 02/16/25 08:24 Famotidine 20 Mg Tablet PO 40 mg BID DORCAS Administration Fluticasone Propionate 2 spray 02/16/25 09:00 02/16/25 08:21 Fluticasone Propionate Nasal 16 Gm [place] NOSTRIL-B 2 spray BID DORCAS Administration Fluticasone/Vilanterol 1 puff 02/16/25 09:00 02/16/25 08:21 Fluticasone/Vilanterol 200/ Blst.W.Dev INHALE 1 puff DAILY DORCAS Administration Gabapentin 400 mg 02/16/25 02:30 02/16/25 08:24 Gabapentin 400 Mg Capsule PO 400 mg TID DORCAS Administration Hydroxyzine HCl 100 mg 02/16/25 02:30 02/16/25 04:34 Hydroxyzine Hcl 50 Mg Tablet PO 100 mg BEDTIME DORCAS Administration Lidocaine 1 patch 02/16/25 09:00 02/16/25 08:30 Lidocaine 4 % Patch Adh..Patch TRANSDERMA Not Given DAILY [facility] Protocol Loratadine 10 mg 02/16/25 09:00 02/16/25 08:24 Loratadine 10 Mg Tablet PO 10 mg DAILY DORCAS Administration Lorazepam 1 mg 02/15/25 22:22 02/15/25 22:28 Lorazepam 1 Mg Tablet PO 02/15/25 22:23 1 mg ONCE ONE Administration Metformin HCl 1,000 mg 02/16/25 08:00 02/16/25 08:24 Metformin Hcl Er 500 Mg Tab.Er.24h PO 1,000 mg DAILY@0800 DORCAS Administration Multivitamins/Vitamin C 1 tab 02/16/25 09:00 02/16/25 08:48 Multivitamin Tablet PO 1 tab DAILY DORCAS Administration Ondansetron HCl 4 mg 02/16/25 08:51 02/16/25 09:31 Ondansetron Odt 4 Mg Tab.Rapdis TRANSLINGU 02/16/25 08:52 4 mg ONCE ONE Administration Pantoprazole Sodium 40 mg 02/16/25 06:30 02/16/25 08:20 Pantoprazole Sodium 20 Mg Tablet. PO 40 mg BID@0630,1630 DORCAS Administration Polyethyl Glycol/Propylene Glycol 1 drop 02/16/25 09:00 02/16/25 08:21 Propylene Glycol/Peg 400 Gel Eye Drops 10ml EYE-BOTH 1 drop QID DORCAS Administration Prazosin HCl 2 mg 02/16/25 02:30 02/16/25 04:41 Prazosin Hcl 1 Mg Capsule PO Not Given BEDTIME DORCAS Protocol Prazosin HCl 5 mg 02/16/25 02:30 02/16/25 04:41 Prazosin Hcl 5 Mg Capsule PO Not Given BEDTIME DORCAS Protocol Prazosin HCl 2 mg/ Prazosin 7 mg 02/16/25 03:00 02/16/25 04:33 HCl 5 mg PO 7 mg BEDTIME DORCAS Administration Prazosin HCl 5 mg 02/16/25 04:30 02/16/25 04:35 Prazosin Hcl 1 Mg Capsule PO 02/16/25 04:31 Not Given ONCE ONE Quetiapine Fumarate 300 mg 02/16/25 02:30 02/16/25 04:34 Quetiapine Fumarate 300 Mg Tablet PO 300 mg BEDTIME DORCAS Administration Sitagliptin Phosphate 100 mg 02/16/25 09:00 02/16/25 08:21 Sitagliptin Phosphate 100 Mg Tablet PO 100 mg DAILY DORCAS Administration Tiotropium [place] 2 puff 02/16/25 09:00 02/16/25 08:21 Tiotropium [place] 2.5 Mcg 1 Puff/2.5 Mcg Mist.Inhal INHALE 2 puff DAILY DORCAS Administration Trazodone HCl 200 mg 02/16/25 02:30 02/16/25 04:33 Trazodone Hcl 100 Mg Tablet PO 200 mg BEDTIME DORCAS Administration Vitamin D 25 mcg 02/16/25 09:00 02/16/25 08:20 Cholecalciferol (Vitamin D3) 25 Mcg Tablet PO 25 mcg DAILY DORCAS Administration Medical Decision Making Medical Decision Making MDM Narrative: 54-year-old female with a history of bipolar disorder, diabetes, morbid obesity, asthma, GERD, sleep apnea who presents with SI. Patient was just discharged from [facility] today, she returned to her correction. Patient states she was involved in a verbal argument with her parents, and 1 of her roommates, which exacerbated her anxiety. Patient began verbalizing thoughts of wanting to ?break a window in use the glass to slit her wrists?. Patient states she has been off her meds for unclear duration of time. Upon arrival, the patient began complaining of chest pain, and that her blood pressure was elevated. Problem: Psychiatric illness History: Per patient I have considered the following differential diagnoses: SI, HI, decompensated psychiatric illness, drug/alcohol intoxication, panic attack, ACS Plan: The patient will be referred to the care team, screening labs including serum ethanol and drug screen we will be obtained. ACS was considered, however her presentation is not consistent with a ACS, she is here for suicidal ideation, in the setting of having acute anxiety. She does have risk factors for coronary artery disease, we will add EKG, chest x-ray and troponin. I have independently reviewed the following tests: Labs: No leukocytosis, not anemic, no electrolyte abnormality, troponin 4.6 which is at her baseline, ethanol less than 10, U tox pending EKG: Normal sinus rhythm, rate of 88, no active ischemic changes no ectopy QTC 462 Chest x-ray:Findings: Lungs are clear. Lung volumes are low. No effusion or pneumothorax. Heart size is normal. S shaped scoliosis of the thoracic spine. IMPRESSION: 1. No acute findings. Lab Data 02/15/25 19:46 02/15/25 19:46 Labs: Lab Results 02/15/25 02/16/25 Range/Units 19:46 04:45 WBC 10.6 (4.8-10.8) X10*3/uL RBC 4.36 (4.20-5.50) X10*6/uL Hgb 12.5 (12.0-16.0) g/dl Hct 36.5 L (37.0-47.0) % MCV 83.7 (80.0-98.0) fL MCH 28.7 (27.0-33.0) pg MCHC 34.2 (31.0-35.0) g/dl RDW 14.0 (11.0-16.0) % Plt Count 212 (160-400) X10*3/uL MPV 9.6 (9.4-12.3) fL Immature Gran % (Auto) 0.7 H (0.0-0.4) % Neut % (Auto) 71.5 (45-73) % Lymph % (Auto) 19.9 L (20-40) % [place] % (Auto) 5.7 (2-11) % Eos % (Auto) 1.8 (0-4) % Baso % (Auto) 0.4 (0-2) % Lymph # (Auto) 2.1 (1.2-4.9) X10*3/uL [place] # (Auto) 0.6 (0.1-1.2) X10*3/uL Eos # (Auto) 0.2 (0.0-0.4) X10*3/uL Baso # (Auto) 0.0 (0.0-0.2) X10*3/uL Abs Immat Gran (auto) 0.07 H (0.00-0.03) X10*3/uL Absolute Neuts (auto) 7.6 (2.0-8.3) x10*3/uL Absolute Nucleated RBC 0.000 (0.0-0.012) X10*3/uL Nucleated RBC % (auto) 0.0 (0.0-0.2) /100WBC Sodium 143 (135-145) mmol/L Potassium 3.6 (3.3-5.1) mmol/L Chloride 108 (96-108) mmol/L Carbon Dioxide 26 (22-29) mmol/L Anion Gap 13 (12-20) BUN 14 (9-16) mg/dL Creatinine 0.67 (0.5-1.4) mg/dL Estim Creat Clear Calc 119.2 Estimated GFR > 60 Random Glucose 131 H (60-115) mg/dL Calcium 8.8 D (8.4-10.2) mg/dL Magnesium 2.1 (1.6-2.6) mg/dL Total Bilirubin 0.2 (0.0-1.0) mg/dL AST 17 (5-31) U/L ALT 17 (0-31) U/L Alkaline Phosphatase 111 (39-117) U/L Troponin I High Sens 4.6 (<3.5-17.0) ng/L Total Protein 7.1 (6.5-8.0) g/dL Albumin 4.1 (3.5-5.0) g/dL Salicylates < 5.0 L (15-30) mg/dL Urine Opiates Screen Not Detected (Not Detect) Ur Buprenorphine Scrn Not Detected (Not Detect) ng/mL Ur Oxycodone Screen Not Detected (Not Detect) ng/mL Urine Methadone Screen Not Detected (Not Detect) ng/mL Urine Fentanyl Screen Not Detected (Not Detect) Acetaminophen < 3 (<30) mcg/mL Ur Barbiturates Screen Not Detected (Not Detect) Ur Phencyclidine Scrn Not Detected (Not Detect) Ur Amphetamines Screen Not Detected (Not Detect) U Benzodiazepines Scrn Not Detected (Not Detect) Urine Cocaine Screen Not Detected (Not Detect) U Marijuana (THC) Screen Not Detected (Not Detect) Ethyl Alcohol < 10 mg/dL Discharge Plan Discharge Clinical Impression: Suicidal ideation, Chest pain, Anxiety Patient Disposition: Home, Self-Care Instructions: Noncardiac Chest Pain (ED), Anxiety (ED), Suicide Prevention (ED) Additional Instructions: Please continue all regular medications. Please follow up with your regular doctor. Return to the emergency room if worse. Prescriptions: No Action trazodone 100 mg Tablet 200 mg PO BEDTIME Qty: 0 0RF Incruse Ellipta 62.5 mcg/actuation Blister With Device 1 inh INHALATION DAILY multivitamin [Daily-Emil] Tablet 1 tab PO DAILY 30 Days Qty: 30 0RF latanoprost 0.005 % drops 2 drp ophthalmic (eye) BEDTIME famotidine 40 mg tablet 40 mg PO BID quetiapine 200 mg tablet 300 mg PO BEDTIME carbamazepine 200 mg tablet extended release 12 hr 200 mg PO TID Rx Instructions: 0800: 200 mg with 400 mg 1700: 200mg 2000: 200mg with 400mg insulin glargine [Lantus Solostar U-100 Insulin] 100 unit/mL (3 mL) insulin pen 10 unit subcut BEDTIME ipratropium-albuterol 0.5 mg-3 mg(2.5 mg base)/3 mL solution for nebulization 3 ml inhalation BID Culturelle 15 billion cell capsule, sprinkle 1 cap PO DAILY lidocaine [Lidocaine Pain Relief] 4 % Adhesive Patch,Medicated 1 patch TOPICAL DAILY Rx Instructions: to back ammonium lactate 12 % Cream 1 appl TOPICAL BEDTIME Rx Instructions: to both feet albuterol sulfate [Ventolin HFA] 90 mcg/actuation Hfa Aerosol Inhaler 2 puff INHALATION Q6H PRN (Reason: Wheezing) dicyclomine 10 mg Capsule 10 mg PO Q6H PRN (Reason: Abdominal Pain) prazosin 2 mg capsule 2 mg PO BEDTIME Rx Instructions: take with 5 mg for a total 7 mg daily quetiapine 50 mg tablet 25 mg PO Q8H PRN (Reason: Anxiety) budesonide-formoterol 160-4.5 mcg/actuation HFA aerosol inhaler 2 puff INHALATION BID cyclobenzaprine 7.5 mg tablet 7.5 mg PO BEDTIME lactase 3,000 unit Tablet 6,000 unit PO Q6H PRN (Reason: dairy meal or snack) ondansetron 4 mg tablet,disintegrating 4 mg PO Q8H PRN (Reason: Nausea) cetirizine 10 mg Tablet 10 mg PO DAILY calcium carbonate [Tums Ultra] 400 mg calcium (1,000 mg) Tablet,Chewable 1,000 mg PO Q8H PRN (Reason: Indigestion) guaifenesin 200 mg/5 mL Liquid 400 mg PO Q6H PRN (Reason: Cough) fluoride (sodium) [PreviDent 5000 Dry Mouth] 1.1 % Paste 1 appl DENTAL BID ibuprofen 600 mg tablet 600 mg PO Q6H PRN (Reason: fever or pain) acetaminophen 500 mg Tablet 1,000 mg PO Q8H PRN (Reason: pain/fever) [place] 11-10 % Cream 1 appl TOPICAL Q6H PRN (Reason: body pain) gabapentin 400 mg capsule 400 mg PO TID metformin 500 mg tablet extended release 24 hr 1,000 mg PO QAM cholecalciferol (vitamin D3) 25 mcg (1,000 unit) tablet 25 mcg PO DAILY pantoprazole 40 mg tablet,delayed release (DR/EC) 40 mg PO BID@0630,1630 docusate sodium 100 mg capsule 200 mg PO DAILY fluticasone propionate 50 mcg/actuation spray,suspension 2 spray intranasal BID prazosin 5 mg capsule 5 mg PO BEDTIME 30 Days Qty: 30 0RF Rx Instructions: take with 2 mg for a total 7 mg daily ferrous sulfate [FeroSul] 325 mg (65 mg iron) tablet 325 mg PO BEDTIME Januvia 100 mg tablet 100 mg PO DAILY hydroxyzine pamoate 50 mg capsule 100 mg PO BEDTIME carbamazepine 400 mg tablet extended release 12 hr 400 mg PO BID Rx Instructions: 0800: 200 mg with 400 mg 1700: 200mg 2000: 200mg with 400mg lorazepam 0.5 mg tablet 0.5 mg PO DAILY PRN (Reason: Anxiety) polyvinyl alcohol-povidon(PF) 1.4-0.6 % Dropperette 1 drp ophthalmic (eye) QID Rx Instructions: 1 drop into both eyes four times a day Referrals: Ethan Ty PA [[facility]] Interventions: [place]-Suicide Risk Severity Scale Last Done: 02/16/25 04:43 ED Discharge Assessment Last Done: 02/16/25 10:43 Discharge Date/Time: 02/16/25 10:45 Print Language: Persian
[2025-02-16 04:22] VITALS: BP 124/58; PULSE 71; RESP 16; O2SAT 96
[2025-02-16 04:33] VITALS: BP 124/58
[2025-02-16] MEDS: Albuterol Sulfate 90 MCG 8 GM INHALER 2 PUFF INHALE (04:38)
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
[2025-02-16 05:01] LABS: Cannabinoid Screen Urine Not Detected (Not Detect)
--- NOTE | 2025-02-16 07:39 | PC.NURSE ---
Assumed care of patient at 0645, patient appears to be in no apparent distress this am, resting in bed, respirations even and unlabored. Continue plan of care for CARE team follow up
[2025-02-16] MEDS: Fluticasone/Vilanterol 200/25 BLST.W.DEV 1 PUFF INHALE (08:21)
[2025-02-16] MEDS: Propylene Glycol/PEG 400 Gel Eye Drops 10ML 1 DROP EYE-BOTH (08:21)
[2025-02-16] MEDS: carBAMazepine ER 200 MG TAB.ER.12H 400 MG PO (08:21)
[2025-02-16] MEDS: Tiotropium Bromide 2.5 mcg 1 PUFF/2.5 MCG MIST.INHAL 2 PUFF INHALE (08:21)
[2025-02-16 08:23] VITALS: BP 116/65; PULSE 103; RESP 20; TEMP 36.6; O2SAT 96
[2025-02-16] MEDS: carBAMazepine ER 200 MG TAB.ER.12H PO (08:48)
[2025-02-16 10:43] VITALS: BP 132/84; PULSE 84; RESP 14; TEMP 37.2; O2SAT 97
--- NOTE | 2025-02-17 10:59 | MHC.CARE ---
Pt has been referred to [facility] for a 3 day follow up and 7 day alert
== END 2025-02-16 10:45 | disposition home or self-care (01) ==
PROVIDERS: Physician Assistant Medical; Emergency Provider Emergency Medicine
DX: F41.9 Anxiety disorder, unspecified (principal); R45.851 Suicidal ideations; R07.9 Chest pain, unspecified; F31.9 Bipolar disorder, unspecified; E11.9 Type 2 diabetes mellitus without complications; J45.909 Unspecified asthma, uncomplicated; K21.9 Gastro-esophageal reflux disease without esophagitis; E66.01 Morbid (severe) obesity due to excess calories; Z68.41 Body mass index [BMI] 40.0-44.9, adult; Z79.899 Other long term (current) drug therapy; Z79.4 Long term (current) use of insulin; Z91.148 Patient's other noncompliance with medication regimen for other reason
CPT/HCPCS: 36415; 71045; 80053; 80143; 80179; 80307; 83735; 84484; 85025; 93005; 99285; S9485

== ENCOUNTER → 2025-02-15 18:34 | Outpatient (BNV) | payer MEDICARE, MEDICAID, SELFPAY | PROVIDERS: Emergency Provider Emergency Medicine; Visit Provider Internal Medicine Cardiovascular Disease | DX: R94.31 Abnormal electrocardiogram [ECG] [EKG] (principal); R07.89 Other chest pain | CPT/HCPCS: 93010 ==

== ENCOUNTER → 2025-02-15 19:24 | Outpatient (BNV) | payer MEDICARE, MEDICAID, SELFPAY | PROVIDERS: Visit Provider Radiology Diagnostic Radiology | DX: R07.9 Chest pain, unspecified (principal) | CPT/HCPCS: 71045 ==

== ENCOUNTER 2025-03-24 10:46 | Emergency (ER) | payer MEDICARE, MEDICAID, SELFPAY ==
--- OUTSIDE RECORDS SUMMARY | 2025-03-19 11:00 | XMS_ITS | Encounter Summary ---
Author Organization [facility] Address [address] [place] [address] Phone Care Team Providers Care Detonator Maker Name Role Phone Rosita Noble NP Primary Care Provider [phone] Jane Rabago Unavailable [phone] Reason for Visit * Reason Comments New Patient Encounter Details Date Type Department Care Team (Late st Contact Info) Description 03/19/2025 11:00 AM EDT Office Visit [facility] at [address] [address] Jane Rabago MBBS [address] [place] [address] [email or web address] Atypical lobular hyperplasia of right breast (Primary Dx) Social History Tobacco Use Types Packs/Day Years Used Date Smoking Tobacco: Never Passive Smoke Exposure: Never Smokeless Tobacco: Never Comments:second hand smoke i n building Alcohol Use Standard Drinks/Week Comments No 0 (1 standard drink = 0.6 oz pur e alcohol) Education Answer Date Recorded Are you interested in more education? Not on anahi e 11/24/2022 Are you concerned about learning? Not on file 11/24/2022 No 11/24/2022 No 11/24/2022 Food Answer Date Recorded Within the past 6 months we worried whether our food would run out before we got money to buy more. Never True 02/17/2025 Within the past 6 months the food we bought just didn't last and we didn't have enough money to get more. Never True Residential Stability Answer Date Recor ded What is your housing situation today? I have [employer] 02/17/2025 How many times have you move d in the past 12 months? Zero (I did not move) 02/17/2025 Paying for Meds Answer Date Recorded Do you have trouble paying for medicines? No 02/17/2025 Paying Utility Bills Answer Date Record ed Do you have trouble paying your heating or elect ricity bill? No 02/17/2025 Transportation Answer Date Recorded Has the lack of transportati on kept you from medical appointments or from getting medications? No 02/17/2025 Digital Access Answer Date Recorded No 02/17/2025 Yes 02/17/2025 Do you have reliable internet access at home? Ye s 02/17/2025 Do you have a device (e.g., phone, tablet, computer) with a working camera? Yes 02/17/2025 Intimate Partner Violence Answer Date R ecorded Are you denied basic needs s uch as food, clothing, or medical care? No 03/09/2025 In the past 12 months have y ou been in a relationship with a person who hurts, threatens, or tries to control you? No 03/09/2025 Are you denied basic needs s uch as food, clothing, or medical care? No 03/09/2025 In the past 12 months have y ou been in a relationship with a person who hurts, threatens, or tries to control you? No 03/09/2025 Comments No Sex and Gender Information Value Date Recorded Sex Assigned at Female 07/29/2017 9:44 AM EST Legal Sex Female 6:05 PM EST Gender Identity Female 07/29/2017 9:44 AM EST Sexual Orientation Straight 07/29/2017 9: 44 AM EST documented as of this encounter Last Filed Vital Signs Vital Sign Reading Time Taken Comments Blood Pressure 124/86 03/19/2025 11:13 AM EDT Pulse 93 03/19/2025 11:13 AM EDT Temperature 36.8 C (98.2 F) 03/19/2025 11:10 AM EDT Respiratory Rate - - Oxygen Saturation 97% 03/19/2025 11:13 AM EDT Inhaled Oxygen Concentration - - Weight 109.8 kg (242 lb) 03/19/2025 11:03 AM EDT Height 157.7 cm (5' 2.09 ) 03/19/2025 11:03 AM E DT Body Mass Index 44.14 03/19/2025 11:03 AM EDT documented in this encounter Progress Notes * Jane Rabago MBBS - 03/19/2025 11:00 AM EDT Medical Oncology/Hematology Initial Note Medical Oncologist: ROSEANNE Alvarez Referring Provider: Rosita Noble NP 03/19/2025 PATIENT ID: Arpita Calix REASON FOR VISIT: Oncology History Overview Note 07/10/2024: Screening Mammogram: Right, lower, outer quadrant: 10 cm from nipple, measuring 0.8 cm.Left, lower, central, 8 cm from nipple, measuring 0.9 cm. 08/25/2024: Bilateral breast US: Right: @ 9:00, spiculated, hypoechoic mass, measuring 0.7 x 0.9 x 0.9 cm. Left: No US correlate is seen for mammographic abnormality. 09/28/2024: Right Breast Biopsy: Outer breast @ 9:00, benign breast tissue with predominantly fibrosis, no atypia or malignancy on multiple additional levels. Surgical resection recommended as highly suspicious. 02/03/2025: Right breast lumpectomy: Benign breast tissue with nodular adenosis, small focus of atypical lobular hyperplasia, margins unremarkable. HISTORY OF PRESENT ILLNESS: Arpita Merchant is a 54 y.o. perimenopausal female with a history of prediabetes, seizure disorder, sleep apnea, traumatic brain injury with associated anxiety, depression, PTSD, asthma, anxiety, anemia. She presents for management recommendations due to atypical lobular hyperplasia of the right breast. She is status post right breast lumpectomy February 03, 2025. Her oncology history has been reviewed and updated above. Seen March 11, [address] Stacy Garcia for new nipple inversion, pain and erythema, now improved/resolved. 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 Patient is in her usual state of health currently. No fever, headache, chest pain, shortness of breath, abdominal pain or new bone pain. Her mood remains somewhat labile. She indicates understanding of the nature of her disease. She has several questions regarding tamoxifen. She has an intact uterus. No history of DVT or PE. She has 1 maternal aunt with a diagnosis of postmenopausal breast cancer. No known family history of ovarian cancer. Patient's menarche was 12 to 13 years old. She had her last cycle within the past 3 to 6 months. She has never been . She has no prior breast biopsies. MEDICATIONS: Current Outpatient Medications Medication Sig Dispense Refill Last Dispense albuterol 90 mcg/actuation inhaler Inhale 2 puffs into the lungs every 6 (six) hours as needed for wheezing. 180mcg 18 g 11 Unknown (outside pharmacy) ammonium lactate (AMLACTIN) 12 % cream Apply topically daily. 285 g 0 Unknown (outside pharmacy) budesonide-formoterol 160-4.5 mcg/actuation inhaler Inhale 2 puffs into the lungs 2 (two) times a day. 10.2 g 11 Unknown (outside pharmacy) calcium carbonate 500 mg (200 mg elemental) chewable tablet Take 2 tablets (1,000 mg total) by mouth every 4 (four) hours as needed for heartburn. Unknown (no pharmacy) carBAMazepine (TEGRETOL XR) 200 MG 12 hr tablet Take 3 tablets (600 mg total) by mouth every morning AND 1 tablet (200 mg total) Every Afternoon AND 3 tablets (600 mg total) nightly at bedtime. 210 tablet 0 Unknown (outside pharmacy) carboxymethylcellulose (REFRESH PLUS) 0.5 % Dpet Place 1 drop into each eye 4 (four) times a day. Unknown (patient-reported) cholecalciferol (VITAMIN D3) 1,000 unit tablet Take 1,000 Units by mouth daily. Unknown (patient-reported) cyclobenzaprine (FEXMID) 7.5 MG tablet Take 1 tablet (7.5 mg total) by mouth nightly at bedtime. 30tablet 1 Unknown (outside pharmacy) DAILY-RIGO, WITH FOLIC ACID, 400 mcg tablet Unknown (patient-reported) docusate sodium (COLACE) 100 MG capsule Take 2 capsules (200 mg total) by mouth daily. 30 capsule 0Unknown (outside pharmacy) famotidine (PEPCID) 40 MG tablet Take 1 tablet (40 mg total) by mouth 2 (two) times a day. 60 tablet 0 Unknown (outside pharmacy) FEROSUL 325 mg (65 mg iron) tablet Unknown (patient-reported) fluticasone propionate (FLONASE) 50 mcg/actuation nasal spray 2 sprays by Nasal route 2 (two) timesa day. Unknown (no pharmacy) gabapentin (NEURONTIN) 400 MG capsule Take 400 mg by mouth 3 (three) times a day. Unknown (patient-reported) hydrOXYzine (VISTARIL) 100 MG capsule Take 1 capsule (100 mg total) by mouth nightly at bedtime. May also take 1 capsule (100 mg total) 3 (three) times a day as needed (restlessness). 120 capsule 1 Unknown (outside pharmacy) ipratropium-albuteroL (DUONEB) 0.5-3 mg (2.5 mg base)/3 mL nebulizer solution USE 3 ML VIA NEBULIZER TWICE DAILY NEEDED FOR WHEEZING 810 mL 3 Unknown (outside pharmacy) JANUVIA 100 mg tablet Take 100 mg by mouth daily. Unknown (patient-reported) lactase (LACTAID) 3,000 unit tablet Take 6,000 Units by mouth 3 (three) times a day as needed. Whendairy is consumed. Not to exceed 4 tablets in 24 hours. Unknown (patient-reported) lactobacillus rhamnosus, GG, (CULTURELLE) 10 billion cell capsule Take 1 capsule by mouth daily. 30capsule 0 Unknown (outside pharmacy) latanoprost (XALATAN) 0.005 % ophthalmic solution Unknown (patient-reported) lidocaine 4 % Place 2 patches onto the skin every morning. Can only be on 12 hrs at a time. One patch for back and one for right breast. 30 patch 1 Unknown (outside pharmacy) LORazepam (ATIVAN) 0.5 MG tablet Take 1 tablet (0.5 mg total) by mouth daily as needed (panic attack). 15 tablet 0 Unknown (outside pharmacy) Medication-Free Text CPAP Unknown (patient-reported) metFORMIN (GLUCOPHAGE-XR) 500 MG 24 hr tablet Take 1,000 mg by mouth daily with breakfast. Unknown (patient-reported) ondansetron (ZOFRAN-ODT) 4 MG disintegrating tablet Take 4 mg by mouth every 8 (eight) hours as needed for nausea. Unknown (patient-reported) pantoprazole (PROTONIX) 40 MG tablet Take 40 mg by mouth 2 (two) times a day. Unknown (patient-reported) prazosin (MINIPRESS) 5 MG capsule Take 7 mg by mouth nightly at bedtime. Unknown (patient-reported) QUEtiapine (SEROQUEL) 300 MG tablet Take 1 tablet (300 mg total) by mouth nightly at bedtime. 30 tablet 0 Unknown (outside pharmacy) QUEtiapine (SEROQUEL) 50 MG tablet Take 1 tablet (50 mg total) by mouth 3 (three) times a day as needed (anxiety). 90 tablet 0 Unknown (outside pharmacy) traZODone (DESYREL) 100 MG tablet Take 2 tablets (200 mg total) by mouth nightly at bedtime. 60 tablet 0 Unknown (outside pharmacy) umeclidinium (INCRUSE ELLIPTA) 62.5 mcg/actuation inhalation Inhale 62.5 mcg (1 puff total) into the lungs daily. 30 each 5 Unknown (outside pharmacy) acetaminophen (TYLENOL) 325 mg tablet Take 2 tablets (650 mg total) by mouth every 4 (four) hours as needed for pain (specific location in comments). Unknown (no pharmacy) cetirizine (ZYRTEC) 10 MG tablet Take 10 mg by mouth every morning. Unknown (patient-reported) dicyclomine (BENTYL) 10 MG capsule Take 10 mg by mouth 4 (four) times a day as needed. (Patient nottaking: Reported on 03/19/2025) Unknown (patient-reported) No current facility-administered medications for this visit. ALLERGIES: Allergies Allergen Reactions Augmentin [Amoxicillin-Pot Clavulanate] Hives Diazepam Anxiety Naproxen Nausea and/or Vomiting Sulfa (Sulfonamide Antibiotics) Rash Apple Nausea and/or Vomiting Benadryl [Diphenhydramine Hcl] Rash Bates And Derivatives GI Upset Other reaction(s): because of acid reflux Tomato GI Upset Past Medical History: Diagnosis Date Achilles tendon disorder, left 01/2021 bone spur Anemia Anxiety Asthma controlled with meds Bipolar affective disorder 02/28/2019 Borderline personality disorder Hearing loss hard of hearing left ear Major depressive disorder Posttraumatic stress disorder Prediabetes Respiratory infection 05/2022 4 times over the past year, fine now Seizure disorder controlled with meds, psuedosiezures Sleep apnea uses CPAP Swelling left ankle Traumatic brain injury at and at age 8 - anxiety, depression, PTSD Wears glasses Past Surgical History: Procedure Laterality Date ACHILLES TENDON SURGERY ADENOIDECTOMY APPENDECTOMY BRAIN SURGERY for TBI BREAST NEEDLE BIOPSY Right 09/28/2024 US guided - path pending COLONOSCOPY COLONOSCOPY N/A 06/01/2022 Performed by Adan Andrews MD at [facility] ENDOSCOPY ESOPHAGOGASTRODUODENOSCOPY N/A 06/01/2022 Performed by Adan Andrews MD at [facility] ENDOSCOPY ESOPHAGOGASTRODUODENOSCOPY N/A 12/27/2017 Performed by Adan Andrews MD at [facility] ENDOSCOPY IMAGE GUIDED LUMPECTOMY BREAST WITH RADIOACTIVE SEED LOCALIZATION Right 02/03/2025 Performed by Stacy Garcia MD at [facility] OR PITUITARY EXCISION TONSILLECTOMY UNCODED SURGICAL HISTORY brain surgery UPPER GASTROINTESTINAL ENDOSCOPY WISDOM TOOTH EXTRACTION Family History Problem Relation Age of Onset Alcohol abuse Mother Alcohol abuse Father Social History Socioeconomic History Marital status: Single Spouse name: Not on file Number of children: Not on file Years of education: Not on file Highest education level: Not on file Occupational History Not on file Tobacco Use Smoking status: Never Passive exposure: Never Smokeless tobacco: Never Tobacco comments: second hand smoke in building Vaping Use Vaping status: never used Substance and Sexual Activity Alcohol use: No Drug use: No Sexual activity: Not Currently Partners: Male Other Topics Concern Not on file Social History Narrative 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 REVIEW OF SYSTEMS GENERAL - Negative for weight loss, weight gain, severe fatigue, anorexia, generalized weakness. HEENT - Negative for mouth sores, tongue swelling, sore throat. Negative for sinus pain or ear pain. NECK - Negative for neck pain or swelling. RESP - Negative for shortness breath, cough, hemoptysis, dyspnea or wheezing. CVS - Negative for chest pain or palpitations. Negative for leg swelling. GI: Negative for nausea, vomiting, diarrhea, abdominal cramping, swelling or pain. Negative for change in bowel habits or bleeding. - Negative for hematuria, dysuria or frequency. HEME - Negative for fever, chills, sweats, bruising or bleeding. Negative for adenopathy. DERM - Negative for rash, itching, sores. MUSC - Negative for back pain or arthralgias. Negative for joint swelling. NEURO - Negative for headache, vision change, focal weakness or numbness. Negative for unsteady gait. PSYCH - Negative for anxiety or depression. VITALS SIGNS: Vitals: 03/19/25 1103 03/19/25 1110 03/19/25 1113 BP: 124/86 BP Location: Left arm Patient Position: Sitting Pulse: 93 Temp: 36.8 ??C (98.2 ??F) TempSrc: Tympanic Tympanic SpO2: 97% Weight: 109.8 kg (242 lb) Height: 157.7 cm (5' 2.09 ) PHYSICAL EXAM: General appearance - alert, well appearing, and in no distress. Obese. Mental status - alert, oriented to person, place, and time Eyes - extraocular eye movements intact, sclera anicteric Mouth - mucous membranes moist, pharynx normal without lesions Neck - supple, no significant adenopathy Lymphatics - no palpable lymphadenopathy Chest - clear to auscultation, no wheezes, rales or rhonchi, symmetric air entry Heart - normal rate, regular rhythm, normal S1, S2, no murmurs, rubs, clicks or gallops Abdomen - soft, nontender, nondistended, no masses or organomegaly Back Exam - No point tenderness or swelling Neurological - alert, oriented, normal speech, no focal weakness. No tremor observed. Musculoskeletal - no joint tenderness, deformity or swelling Extremities - no pedal edema, no clubbing or cyanosis Skin - No rash Breast exam - deferred LABS: Labs from 01/2025 and 02/2025 reviewed RADIOLOGY: CT Angio Chest Result Date: 03/09/2025 CT CHEST PULMONARY ANGIOGRAM (ACUTE) Referring clinician's provided indication for this examinationin Epic: * Chest pain, nonspecific; * Dyspnea on exertion (LOPEZ); * PE suspected, low/intermediate prob, positive D-dimer; + d-dimer TECHNIQUE: Multidetector CT pulmonary angiography was performed after administration of intravenous contrast using tailored dose modulation techniques. 3D angiographicpostprocessing techniques were acquired in the form of axial maximum intensity projection images (MIPS). COMPARISON: CT CHEST PULMONARY ANGIOGRAM (ACUTE) 2022- FINDINGS: Motion degraded study. P ulmonary Angiogram: Suboptimal evaluation of the segmental and subsegmental pulmonary arteries due to motion artifact. There is no central pulmonary embolus. Devices/Tubes/Lines: None. Lungs: Limitedevaluation of the lung parenchyma due to motion artifact. Bilateral dependent atelectasis. No large consolidation. The central airways are clear. Pleura: No pleural effusion or pneumothorax. Mediastinum: No thyroid nodules. Normal heart size. No pericardial effusion. Lymph Nodes: No enlarged supraclavicular, axillary, mediastinal, or hilar lymph nodes. Upper Abdomen: Mild splenomegaly measuring 15.1 cm in AP diameter. Fatty liver. Chest Wall: Partially imaged 3.6 cm collection in the right breast with overlying skin thickening, presumably postoperative. Bones: Degenerative changes of the spine. Dextroscoliosis of the thoracic spine. 1. Motion degraded study. Within this limitation, no central pulmonary embolism or other acute abnormality in the chest. 2. Partially imaged collection in the right breast with overlying skin thickening, presumably postoperative etiology related to recent lumpectomy. Continued follow-up per protocol is suggested. ATTESTATION: I, Serge Cunningham as teaching physician, have reviewed the images for this case and if necessary edited the report originally created by Meg Toribio. Chest Wall Result Date: 03/03/2025 US CHEST WALL Referring clinician's provided indication for this examination in Epic: Infection; New skin dimpling/indentation; post lumpectomy with redness, swelling and pain Lobectomy 02/03/2025. Right breast/chest wall erythema and mild warmth. Tenderness. Question abscess. TECHNIQUE: Ultrasound of the chest wall. COMPARISON: Pre-op ultrasound 08/25/2024 and 01/25/2025. FINDINGS: Targeted ultrasound was performed of the area of clinical concern along the right anterolateral chest wall at 8:00, 12cm from the nipple shows lumpectomy cavity with complex echotexture. Areas of cystic change mixed with more solid component that is smoothly marginated and most consistent with hematoma and/or seromathat measures 4.2 x 4.7 x 5.4 cm. Mild marginal hypervascularity. No central flow. No discrete drainable collection identified. No visible mass. Lumpectomy site evident measuring 4.2 x 4.7 x 5.4 cm. Findings may represent hematoma and/or complicated seroma. No discrete drainable collection. Ribs (Left) Result Date: 02/21/2025 XR RIBS 3 OR MORE VIEWS WITH PA CHEST (LEFT) Referring clinician's provided indication for this examination in [facility]: Pain COMPARISON: XR CHEST PA AND LATERAL 2 VIEWS FINDINGS: No displaced left-sided rib fracture. PA evaluation of the chest demonstrates no focal consolidation, pleural effusion, pulmonary edema, or pneumothorax. Cardiomediastinal silhouette is normal. Thoracic scoliosis and calcific rotator cuff tendinosis in the right shoulder are again seen. No displaced left-sided rib fracture. Clear lungs. Electronically Signed by: Dr. Les Guerrero on02/21/2025 11:00 AM ASSESSMENT and PLAN 54-year-old perimenopausal female with right sided atypical lobular hyperplasia of the breast, status post right lumpectomy February 03, 2025. I have reviewed the natural history of atypical lobular hyperplasia of the breast. I have recommended endocrine therapy for risk reduction, due to the increased risk of breast malignancy, which is 4-10 fold higher than average. I have reviewed the efficacy, administration and side effect profile oftamoxifen; the risk reduction for breast cancer is in the range of 40-50%. We specifically discussed nausea, hot flashes, mood swings, increased risk of venous arterial thrombosis, and increased riskof endometrial cancer. Printed information was given. She should also continue surveillance with clinical breast examinations every 6 to 12 months and annual breast imaging with mammography. There is insufficient evidence to recommend for or against screening breast MRI in woman with ALH, but with a calculated lifetime breast cancer risk greater than 20%, MRI may be considered for high risk guidelines. With no mortality benefit to MRI, pt will continue with mammography at this time. 1 week telehealth follow up - pt to give decision regarding tamoxifen. She is aware of the possibility of serious risks/complications with this medication, as noted above. Problem List Items Addressed This Visit Atypical lobular hyperplasia of right breast I spent more than 60 minutes during this consultation and more than half of this time was spent in direct [id number] counseling and coordination of care. Time spent face to face : 30 minutes. [id number] time spent, including chart review, documentation of encounter and coordination ofcare :30 minutes. documented in this encounter Plan of Treatment Upcoming Encounters Date Type Department Care Team (Late st Contact Info) Description 08/30/2025 8:20 AM EST Office Visit [facility] [address] [place] [address] Dana Campo MD [address] [place] [address] [email or web address] documented as of this encounter Visit Diagnoses Diagnosis Atypical lobular hyperplasia of right breast- Primary documented in this encounter Care Teams Detonator Maker Relationship Specialty Start Date End Date Rosita Noble NP [address] [place] [address] PCP - General Nurse Practitioner 01/08/25 Jane Rabago MBBS [address] [place] [id number] [email or web address] Primary Oncologist Medical Oncology 02/25/25 documented as of this encounter Additional Source Comments The information contained in this document represents components of the legal health record. It is not the complete legal health record.[facility]
--- NOTE | ~2025-03-24 | CT_ITS ---
EXAMINATION: CT CERVICAL SPINE WITHOUT CONTRAST CLINICAL INFORMATION: Fall, neck pain. COMPARISON: 10/16/2023 TECHNIQUE: Spiral CT imaging of the cervical spine performed in axial plane without contrast. Multiplanar reformatted images were constructed from the axial data set. This CT examination was performed using dose optimization techniques as appropriate, variously including the following: *Automated exposure control *Adjustment of mA and/or kV according to patient size (this includes techniques or standardized protocols for targeted exams where dose is matched to indication/reason for exam; i.e. extremities or head) *Use of iterative reconstruction technique FINDINGS: CORONAL ALIGNMENT: -There is a mild to moderate right convex scoliosis, centered at C6. SAGITTAL ALIGNMENT: -There is a normal lordosis. There is no subluxation. C1-C2 AND CRANIOCERVICAL JUNCTION: -Intact and normally aligned. VERTEBRAL BODIES AND FACETS: -There is no fracture, compression deformity, or suspicious bone lesion. -There is no traumatic subluxation. -There is normal facet alignment. There is no significant facet arthropathy. DISCS: -Grossly preserved at all levels. CENTRAL CANAL: -No evidence of high-grade central canal narrowing or large disc herniation allowing for modality limitations. PREVERTEBRAL AND PARAVERTEBRAL SOFT TISSUES: -No prevertebral or paravertebral soft tissue swelling or edema. -Retropharyngeal course of both carotid arteries. -Normal-appearing thyroid gland. -No masses or abnormal lymph nodes within the neck. LUNG APICES: -Motion limited. Grossly clear. No pneumothorax. CT/CT cervical spine wo IV con IMPRESSION: 1. No CT evidence of acute cervical spine fracture or injury. Electronically signed by: Andrey Carroll MD 03/24/2025 12:34 PM EDT
--- NOTE | ~2025-03-24 | XR_ITS ---
EXAMINATION: XR KNEE, RIGHT CLINICAL INFORMATION: fall COMPARISON: None available. TECHNIQUE: AP and lateral views of the right knee. FINDINGS: There is no joint effusion. A questionable narrowing of the medial joint space. There is a minute marginal osteophyte involving medial tibial plateau. No fracture is evident. XR/XR knee RT 2V IMPRESSION: Minimal degenerative change of questionable significance. Electronically signed by: Campos Newton MD 03/24/2025 11:52 AM EDT
--- NOTE | ~2025-03-24 | CT_ITS ---
EXAMINATION: CT HEAD WITHOUT CONTRAST CLINICAL INFORMATION: fall, facial trauma COMPARISON: October 16, 2023. TECHNIQUE: Contiguous axial imaging was performed from the skull base to vertex without intravenous administration of contrast. This CT examination was performed using dose optimization techniques as appropriate, variously including the following: *Automated exposure control *Adjustment of mA and/or kV according to patient size (this includes techniques or standardized protocols for targeted exams where dose is matched to indication/reason for exam; i.e. extremities or head) *Use of iterative reconstruction technique DLP: 950.81 mGy-cm FINDINGS: No acute cortical disruption within the bony calvarium or the skull base. 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 No acute intracranial hemorrhage, mass effect, midline shift, hydrocephalus or herniation. De La O-white matter differentiation is normal. Posterior cranial fossa contents demonstrated no acute hemorrhage or mass effect. Normal position of the cerebellar tonsils. Sellar/suprasellar region demonstrated no gross masses. 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 Small retention cysts versus polyp, left maxillary sinus. No air-fluid levels in the paranasal sinuses. Tympanic cavities and mastoid cells are aerated. No gross hematoma in the intraconal or extraconal compartments of the orbits. Patient's large body habitus/obesity. CT/CT head/brain wo IV con IMPRESSION: No acute fracture, bony calvarium. No acute intracranial hemorrhage. Stable brain. Electronically signed by: Jean Paul Medina MD 03/24/2025 12:20 PM EDT
[2025-03-24 11:00] VITALS: BMI 42.8
[2025-03-24 11:11] VITALS: BP 146/79; PULSE 100; RESP 20; TEMP 36.6
--- NOTE | 2025-03-24 11:15 | ECG_ITS ---
Test Reason : DIZZINESS Blood Pressure : */* mmHG Vent. Rate : 90 BPM Atrial Rate : 90 BPM P-R Int : 200 ms QRS Dur : 92 ms QT Int : 380 ms P-R-T Axes : 30 -22 27 degrees QTcB Int : 464 ms Normal sinus rhythm Low voltage QRS Inferior infarct , age undetermined Possible Anterolateral infarct (cited on or before 02-Apr-2024) Abnormal ECG When compared with ECG of 15-Feb-2025 18:45, Questionable change in initial forces of Lateral leads Referred By: Fransisco Infante Electronically Signed By: Jose Leal
--- NOTE | 2025-03-24 11:49 | ED_ITS ---
HPI - Fall General Chief Complaint: Fall Stated Complaint: [facility] HOME, LIP LAC, +CCOLLAR, -BT Time Seen by Provider: 03/24/25 11:08 Source: patient and EMS Mode of arrival: EMS Limitations: no limitations History of Present Illness ED Provider: HPI Narrative: 54-year-old woman presenting with what she reports as to be nonsyncopal fall, she states she lives at a care home I was coming out of the van returning to the care home and tripped on her sneakers and fell forward on her face, reports tetanus up-to-date, she also states she has been dizzy all day describes that as a spinning sensation, has had this in the past but today states much worse than usual. Prior to the fall did not have any chest pain shortness of breath palpitations, denies fevers or chills or dysuria. She was transported with cervical collar in place noted to have cut to the inner lower lip with some dried blood on the face. Related Data Home Medications ?Medication ?Instructions ?Recorded ?Confirmed umeclidinium 62.5 mcg/actuation 1 inh inhalation DAILY 08/01/21 02/16/25 blister powder for inhalation (Incruse Ellipta) cholecalciferol (vitamin D3) 25 25 mcg PO DAILY 02/16/25 mcg (1,000 unit) tablet docusate sodium 100 mg capsule 200 mg PO DAILY 3 02/16/25 gabapentin 400 mg capsule 400 mg PO TID 12/19/2202/16 metformin 500 mg tablet,extended 1,000 mg PO QAM 12/1902/16/25 release 24 hr pantoprazole 40 mg tablet,delayed 40 mg PO BID@0630,16 30 12/19/22 02/16/25 release fluticasone propionate 50 2 spray intranasal BID 12/2002/16/25 mcg/actuation nasal spray,suspension ferrous sulfate 325 mg (65 mg 325 mg PO BEDTIME 02/16/25 iron) tablet (FeroSul) sitagliptin phosphate 100 mg 100 mg PO DAILY 03/10/24 02/16/25 tablet (Januvia) Lactobacillus rhamnosus GG 15 1 cap PO DAILY 08/16/24 02/16/25 billion cell sprinkle capsule (Culturelle) albuterol sulfate 90 mcg/actuation 2 puff inhalation Q 6H PRN Wheezing 08/16/24 02/16/25 aerosol inhaler (Ventolin HFA) ammonium lactate 12 % topical cream 1 appl topical BED TIME 08/16/24 02/16/25 budesonide-formoterol HFA 160 2 puff inhalation BID 02/16/25 mcg-4.5 mcg/actuation aerosol inhaler carbamazepine 200 mg 200 mg PO TID bipolar disord er 08/16/24 02/16/25 tablet,extended release,12 hr cyclobenzaprine 7.5 mg tablet 7.5 mg PO BEDTIME 02/16/25 dicyclomine 10 mg capsule 10 mg PO Q6H PRN Abdominal P ain 08/16/24 02/16/25 famotidine 40 mg tablet 40 mg PO BID 08/16/24 insulin glargine 100 unit/mL (3 10 unit subcut BEDTIME 08/16/24 11/04/24 mL) subcutaneous pen (Lantus Solostar U-100 Insulin) ipratropium 0.5 mg-albuterol 3 mg 3 ml inhalation BID Shortness Of 08/16/24 02/16/25 (2.5 mg base)/3 mL nebulization Breath soln latanoprost 0.005 % eye drops 2 drp ophthalmic (eye) B EDTIME 08/16/24 02/16/25 lidocaine 4 % topical patch 1 patch topical DAILY back pain 08/16/24 02/16/25 (Lidocaine Pain Relief) prazosin 2 mg capsule 2 mg PO BEDTIME 08/16/24 quetiapine 200 mg tablet 300 mg PO BEDTIME 08/16/24 0 02/16/25 quetiapine 50 mg tablet 25 mg PO Q8H PRN Anxiety 02/16/25 acetaminophen 500 mg tablet 1,000 mg PO Q8H PRN pain/f ever 11/04/24 02/16/25 calcium carbonate (Tums Ultra) 1,000 mg PO Q8H PRN Ind igestion 11/04/24 02/16/25 camphor-menthol 11 %-10 % topical 1 appl topical Q6H P RN body pain 11/04/24 02/16/25 cream ([employer] [place]) cetirizine 10 mg tablet 10 mg PO DAILY 11/04/24 07/04/15 fluoride (sodium) 1.1 % dental 1 appl dental BID 11/0402/16/25 paste (PreviDent 5000 Dry Mouth) guaifenesin 200 mg/5 mL oral liquid 400 mg PO Q6H PRN Cough 11/04/24 02/16/25 ibuprofen 600 mg tablet 600 mg PO Q6H PRN fever or p ain 11/04/24 02/16/25 lactase 3,000 unit tablet 6,000 unit PO Q6H PRN dairy meal 11/04/24 02/16/25 or snack ondansetron 4 mg disintegrating 4 mg PO Q8H PRN Nausea 11/04/24 02/16/25 tablet carbamazepine 400 mg 400 mg PO BID 02/16/2502/16 tablet,extended release,12 hr hydroxyzine pamoate 50 mg capsule 100 mg PO BEDTIME an xiety 02/16/25 02/16/25 lorazepam 0.5 mg tablet 0.5 mg PO DAILY PRN Anxiety 02/16/25 02/16/25 polyvinyl alcohol-povidone (PF) 1 drp ophthalmic (eye) QID dry eye 02/16/25 02/16/25 1.4 %-0.6 % eye drops in a dropperette Previous Rx's ?Medication ?Instructions ?Recorded multivitamin (Daily-Emil tablet) 1 tab PO DAILY 30 day s #30 tabs 08/15/21 trazodone 100 mg tablet 200 mg (2 x 100 mg) PO BEDTI ME #0 01/24/22 tabs prazosin 5 mg capsule 5 mg PO BEDTIME 30 days #30 caps 01/01/23 acetaminophen 500 mg capsule 1,000 mg (2 x 500 mg) PO Q6H PRN 03/24/25 pain 5 days #20 caps ibuprofen 400 mg tablet 400 mg PO Q6H PRN pain 5 day s #20 03/24/25 tabs meclizine 12.5 mg tablet 12.5 mg PO TID PRN vertigo 5 days 03/24/25 #20 tabs Allergies Allergy/AdvReac Type Severity Reaction Status Date / Time sulfamethoxazole (From Allergy Intermediate Rash Verified 03/24/25 11:01 Bactrim) trimethoprim (From Bactrim) Allergy Intermediate Rash Verified 03/24/25 11:01 adhesive tape Allergy Rash Verified 03/24/25 11:01 [employer] Allergy Gastrointestinal Verified 03/24/25 11:01 Upset Benzodiazepines AdvReac Intermediate Hives Verified 03/24/25 11:01 diazepam (From Valium) AdvReac Intermediate Irritable Verified 03/24/25 11:01 Review of Systems 2 Constitutional: Constitutional: Reports as per HPI [facility] Past Medical History Medical History Chest tightness Suicidal ideation GERD (gastroesophageal reflux disease) Sleep apnea Asthma Hearing loss Diabetes mellitus, type 2 Social History Social History Household Members: Other Household Members Other:: care home Housing: Other Housing Other:: [facility] care home Do you presently have visiting nurse or other home services: Yes Alcohol intake: never Comment: pt on 5 min checks Patient Tobacco Use Status: Never used Tobacco e-Cigarette/Vaping Use: Never Used Advance Directives: No Advance Directives Information Provided: Yes service: No Sexual orientation: Straight/Heterosexual Physical Exam 2 Vital Signs: Vital Signs: Last Vital Signs Temp 97.8 F 03/24/25 11:11 Pulse 100 03/24/25 11:11 Resp 20 03/24/25 11:11 BP 146/79 H 03/24/25 11:11 BMI result Body Mass Index 42.8 Const: Other: * Gen: ?Anxious affect, dried blood on the face * HEENT: PERRLA, no dental trauma, no loose teeth, no cuts to the tongue, superficial 1 cm laceration to the lower lip * Neck: Cervical collar cleared using nexus criteria * CV: RRR, no obvious murmurs appreciated * Resp: ?No wheezing rales rhonchi no stridor moving air well * Abd: ?Bowel sounds are present, no tenderness no rebound no rigidity * MSK: FROM, strength 5/5 all extremities, some superficial bruising to right knee, full range of motion both hips both knees both ankles both upper extremities * Skin: Lip black, right knee superficial abrasion * Neuro: ?Alert and oriented x3, moving upper and lower extremities symmetrically, no obvious facial asymmetry noted, no dysmetria upper or lower extremities she does have right-sided horizontal nystagmus without vertical or rotary component Medications Administered Discontinued Medications Generic Name Dose Route Start Last Admin Trade Name Stephen PRN Reason Stop Dose Admin Diazepam 2 mg 03/24/25 11:15 03/24/25 11:57 Diazepam 2 Mg Tablet PO 03/24/25 11:16 2 mg ONCE ONE Administration Meclizine HCl 12.5 mg 03/24/25 11:15 03/24/25 11:57 Meclizine Hcl 12.5 Mg Tablet PO 03/24/25 11:16 12.5 mg ONCE ONE Administration Scopolamine 1.5 mg 03/24/25 11:15 03/24/25 11:56 Scopolamine 1.5 Mg Patch.Td.3 EAR-BEHIND 03/24/25 11:16 1.5 mg ONCE ONE Administration Medical Decision Making Medical Decision Making MDM Narrative: Patient sounds like has had nonsyncopal fall she had reports tripping and falling however also found to have right-sided peripheral vertigo on exam, she has had these symptoms since the morning so possibly have contributed to her fall, reports tetanus up-to-date, no dental trauma we will make sure does not have any head injury or neck injury or right knee fractures but that is a consideration, does not appear to have evidence for cerebellar stroke necessitating further imaging such as CT angio or brain MRI, we will medicate we will reassess we will determine disposition 13:00 discharge instructions discussed with care home roofing sales representative at patient's bedside Differential Diagnosis Differential Diagnoses: The differential diagnosis associated with the presentation includes (Head injury, neck injury, ACS, dysrhythmia, anemia, BPPV, cerebellar stroke) Admission/Observation Consideration of admission/observation: Escalation of care including admission/observation considered 2022 Emergency Medicine Coding Guide from [employer] on 03/24/2025 All calculations should be rechecked by clinician prior to use RESULT SUMMARY: 5 Estimated Level of Service Problems: Moderate (4) Risk: High (5) Data: Extensive (5) NARRATIVE MDM: This patient's problem complexity is Moderate as patient: has a new undiagnosed problem with uncertain prognosis but that could be serious. This patient's risk is High due to: overall presentation requiring evaluation for a potentially High-risk process. This patient's data complexity is Extensive due to: -multiple tests ordered/reviewed -independent interpretation of imaging or EKG INPUTS: Number and Complexity ?> 5 = 4: undiagnosed new problem, uncertain outcome (e) Risk level ?> 4 = High Tests ordered ?> 3 = =3 Tests results reviewed (excluding labs) ?> 3 = =3 Prior external notes reviewed ?> 0 = 0 Assessment requiring and independent historian ?> 0 = No Independent interpretation of tests ?> 1 = Yes Discussed management/test interpretation w/external professional ?> 0 = No Consult Healthcare Provider intermediate roofing sales representative with the patient Lab Data [facility] Lab Attestation statement: I reviewed the patient's lab results. 03/24/25 11:57 03/24/25 11:57 Labs: Lab Results 03/24/25 Range/Units 11:57 WBC 8.8 (4.8-10.8) X10*3/uL RBC 4.46 (4.20-5.50) X10*6/uL Hgb 12.6 (12.0-16.0) g/dl Hct 37.5 (37.0-47.0) % MCV 84.1 (80.0-98.0) fL MCH 28.3 (27.0-33.0) pg MCHC 33.6 (31.0-35.0) g/dl RDW 13.8 (11.0-16.0) % Plt Count 216 (160-400) X10*3/uL MPV 9.7 (9.4-12.3) fL Immature Gran % (Auto) 1.5 H (0.0-0.4) % Neut % (Auto) 66.9 (45-73) % Lymph % (Auto) 22.5 (20-40) % Hinds % (Auto) 6.0 (2-11) % Eos % (Auto) 2.5 (0-4) % Baso % (Auto) 0.6 (0-2) % Lymph # (Auto) 2.0 (1.2-4.9) X10*3/uL Hinds # (Auto) 0.5 (0.1-1.2) X10*3/uL Eos # (Auto) 0.2 (0.0-0.4) X10*3/uL Baso # (Auto) 0.1 (0.0-0.2) X10*3/uL Abs Immat Gran (auto) 0.13 H (0.00-0.03) X10*3/uL Absolute Neuts (auto) 5.9 (2.0-8.3) x10*3/uL Absolute Nucleated RBC 0.000 (0.0-0.012) X10*3/uL Nucleated RBC % (auto) 0.0 (0.0-0.2) /100WBC Sodium 140 (135-145) mmol/L Potassium 3.7 (3.3-5.1) mmol/L Chloride 106 (96-108) mmol/L Carbon Dioxide 26 (22-29) mmol/L Anion Gap 12 (12-20) BUN 14 (9-16) mg/dL Creatinine 0.59 (0.5-1.4) mg/dL Estim Creat Clear Calc 126.2 Estimated GFR > 60 Random Glucose 110 (60-115) mg/dL Calcium 8.5 (8.4-10.2) mg/dL Troponin I High Sens 2.8 (<3.5-17.0) ng/L Independent Interpretation I performed an independent interpretation of an: EKG (90 beats per minute otherwise normal ECG without dysrhythmia, AV imelda blocks or ST-T changes to suspect underlying ACS, my independent interpretation) and Plain X-Ray (No obvious new fractures, preserved joint spaces) Radiology Impression Discussion of test interpretation with radiology: I have reviewed the radiologist's reading. (1. No CT evidence of acute cervical spine fracture or injury. No acute fracture, bony calvarium. No acute intracranial hemorrhage. Stable brain.) Independent Historian Clinical information obtained from an independent historian. History obtained from or confirmed by: EMS Prescription Management I considered prescription management with: Pain Medication Discharge Plan Discharge Clinical Impression: Fall from standing, Dizziness, Laceration of lip, Contusion of knee, left Patient Disposition: Home, Self-Care Instructions: Dizziness (ED), Contusion in Adults (ED) Additional Instructions: Patient evaluated after a fall, she tripped and fell, however also she has been reporting dizziness, she may have mild vertigo, I recommend using scopolamine patch that has been applied in the ER keep it in place for 72 hours, use meclizine 12.5 mg every 6-8 hours as needed for continued symptoms she can manage that at home, she has a lip laceration there was no indication for antibiotics or stitches, she told me that her tetanus is up-to-date, make sure that patient does not need any potato chips anything spicy or salty, and after meals to drink water to wash away any cramps from the lip As far as her knee contusion big bag of ice to the knee every day 20 minutes, and she can use either ibuprofen 400 mg or acetaminophen 975 mg as needed for pain Her workup was quite extensive she had CT cervical spine, CT brain, blood work, cardiac enzymes, EKG, x-ray of her left knee all of which has been reassuring She needs to be re-evaluated by her PCP within 1-2 weeks Prescriptions: New ibuprofen 400 mg tablet 400 mg PO Q6H PRN (Reason: pain) 5 Days Qty: 20 0RF meclizine 12.5 mg tablet 12.5 mg PO TID PRN (Reason: vertigo) 5 Days Qty: 20 0RF acetaminophen 500 mg capsule 1,000 mg PO Q6H PRN (Reason: pain) 5 Days Qty: 20 0RF No Action trazodone 100 mg Tablet 200 mg PO BEDTIME Qty: 0 0RF Incruse Ellipta 62.5 mcg/actuation Blister With Device 1 inh INHALATION DAILY multivitamin [Daily-Emil] Tablet 1 tab PO DAILY 30 Days Qty: 30 0RF latanoprost 0.005 % drops 2 drp ophthalmic (eye) BEDTIME famotidine 40 mg tablet 40 mg PO BID quetiapine 200 mg tablet 300 mg PO BEDTIME carbamazepine 200 mg tablet extended release 12 hr 200 mg PO TID Rx Instructions: 0800: 200 mg with 400 mg 1700: 200mg 2000: 200mg with 400mg insulin glargine [Lantus Solostar U-100 Insulin] 100 unit/mL (3 mL) insulin pen 10 unit subcut BEDTIME ipratropium-albuterol 0.5 mg-3 mg(2.5 mg base)/3 mL solution for nebulization 3 ml inhalation BID Culturelle 15 billion cell capsule, sprinkle 1 cap PO DAILY lidocaine [Lidocaine Pain Relief] 4 % Adhesive Patch,Medicated 1 patch TOPICAL DAILY Rx Instructions: to back ammonium lactate 12 % Cream 1 appl TOPICAL BEDTIME Rx Instructions: to both feet albuterol sulfate [Ventolin HFA] 90 mcg/actuation Hfa Aerosol Inhaler 2 puff INHALATION Q6H PRN (Reason: Wheezing) dicyclomine 10 mg Capsule 10 mg PO Q6H PRN (Reason: Abdominal Pain) prazosin 2 mg capsule 2 mg PO BEDTIME Rx Instructions: take with 5 mg for a total 7 mg daily quetiapine 50 mg tablet 25 mg PO Q8H PRN (Reason: Anxiety) budesonide-formoterol 160-4.5 mcg/actuation HFA aerosol inhaler 2 puff INHALATION BID cyclobenzaprine 7.5 mg tablet 7.5 mg PO BEDTIME lactase 3,000 unit Tablet 6,000 unit PO Q6H PRN (Reason: dairy meal or snack) ondansetron 4 mg tablet,disintegrating 4 mg PO Q8H PRN (Reason: Nausea) cetirizine 10 mg Tablet 10 mg PO DAILY calcium carbonate [Tums Ultra] 400 mg calcium (1,000 mg) Tablet,Chewable 1,000 mg PO Q8H PRN (Reason: Indigestion) guaifenesin 200 mg/5 mL Liquid 400 mg PO Q6H PRN (Reason: Cough) fluoride (sodium) [PreviDent 5000 Dry Mouth] 1.1 % Paste 1 appl DENTAL BID ibuprofen 600 mg tablet 600 mg PO Q6H PRN (Reason: fever or pain) acetaminophen 500 mg Tablet 1,000 mg PO Q8H PRN (Reason: pain/fever) [employer] [place] 11-10 % Cream 1 appl TOPICAL Q6H PRN (Reason: body pain) gabapentin 400 mg capsule 400 mg PO TID metformin 500 mg tablet extended release 24 hr 1,000 mg PO QAM cholecalciferol (vitamin D3) 25 mcg (1,000 unit) tablet 25 mcg PO DAILY pantoprazole 40 mg tablet,delayed release (DR/EC) 40 mg PO BID@0630,1630 docusate sodium 100 mg capsule 200 mg PO DAILY fluticasone propionate 50 mcg/actuation spray,suspension 2 spray intranasal BID prazosin 5 mg capsule 5 mg PO BEDTIME 30 Days Qty: 30 0RF Rx Instructions: take with 2 mg for a total 7 mg daily ferrous sulfate [FeroSul] 325 mg (65 mg iron) tablet 325 mg PO BEDTIME Januvia 100 mg tablet 100 mg PO DAILY hydroxyzine pamoate 50 mg capsule 100 mg PO BEDTIME carbamazepine 400 mg tablet extended release 12 hr 400 mg PO BID Rx Instructions: 0800: 200 mg with 400 mg 1700: 200mg 2000: 200mg with 400mg lorazepam 0.5 mg tablet 0.5 mg PO DAILY PRN (Reason: Anxiety) polyvinyl alcohol-povidon(PF) 1.4-0.6 % Dropperette 1 drp ophthalmic (eye) QID Rx Instructions: 1 drop into both eyes four times a day Print Language: Wolof
[2025-03-24 12:02] LABS: MANUAL DIFF FLAG NO
[2025-03-24 12:04] LABS: Hematocrit 37.5 % (37.0-47.0); Hemoglobin 12.6 g/dl (12.0-16.0); Imm Gran Abs Auto 0.13 X10*3/uL (0.00-0.03); Imm Gran Pct Auto 1.5 % (0.0-0.4); Lymphocytes Absolute Auto 2.0 X10*3/uL (1.2-4.9); Mean Corpuscular HGB Conc 33.6 g/dl (31.0-35.0); Mean Corpuscular Hemoglobin 28.3 pg (27.0-33.0); Mean Corpuscular Volume 84.1 fL (80.0-98.0); NRBC Abs Auto 0.000 X10*3/uL (0.0-0.012); NRBC Pct Auto 0.0 /100WBC (0.0-0.2); Platelet Count 216 X10*3/uL (160-400); Red Blood Count 4.46 X10*6/uL (4.20-5.50); White Blood Count 8.8 X10*3/uL (4.8-10.8)
[2025-03-24 12:17] LABS: Anion Gap 12 (12-20); Blood Urea Nitrogen 14 mg/dL (9-16); Calcium 8.5 mg/dL (8.4-10.2); Carbon Dioxide 26 mmol/L (22-29); Chloride 106 mmol/L (96-108); Creatinine Clr Calc Pharmacy 126.2; Estimated Glomerular Filt Rate > 60; Potassium 3.7 mmol/L (3.3-5.1); Sodium 140 mmol/L (135-145)
[2025-03-24 12:26] LABS: Troponin-I High Sensitivity 2.8 ng/L (<3.5-17.0)
[2025-03-24 13:47] VITALS: BP 142/82; PULSE 95; RESP 18; TEMP 36.3; O2SAT 94
--- OUTSIDE RECORDS SUMMARY | 2025-03-24 14:37 | XMS_ITS | Encounter Summary ---
Author Organization [facility] Address [address] [place] [address] Phone Care Team Providers Care Retrimmer Name Role Phone Melissa Castrejon Primary Care Provider Ethan Ty Primary Care Provider [phone] Rosita Noble NP Primary Care Provider [phone] Jane Rabago Unavailable [phone] Reason for Visit * Reason Comments Medication Refill Encounter Details Date Type Department Care Team (Late Contact Info) Description 09/28/2022 Refill [facility] [address] [place] [address] Nando Morris MD [address] [place] [address] Medication Refill Social History Tobacco Use Types Packs/Day Years Used Date Smoking Tobacco: Never Smokeless Tobacco: Never Comments:second hand smoke i n building Alcohol Use Standard Drinks/Week Comments No 0 (1 standard drink = 0.6 oz pur e alcohol) Comments No Sex and Gender Information Value [...] Pulmonary, Allergy and Critical Care Medicine [address] [facility] [place] [address] Dana Campo MD [address] [facility] 2nd [place] [address] [email or web address] documented as of this encounter Visit Diagnoses Not on filedocumented in this encounter Additional Health Concerns Infection Onset Date Last Indicated Resolved Time COVID-19 09/18/2022 09/18/2022 10/09/2022 1:22 AM EDT [...] documented as of this encounter Care Teams Retrimmer Relationship Specialty Start Date End Date Melissa Castrejon PA [address] [place] [address] [email or web address] PCP - General Unknown Provider Specialty 06/01/22 Ethan Ty PA [address] [place] [address] PCP - General Physician Artificial Stone Applicator 04/13/24 01/07/25 Rosita Noble NP [address] [place] [address] PCP - General Nurse Practitioner 01/08/25 Jane Rabago MBBS [address] [place] [id number] [email or web address] Primary Oncologist Medical Oncology 02/25/25 documented as of this encounter Additional Source Comments The information contained in this document represents components of the legal health record. It is not the complete legal health record.[facility]
--- OUTSIDE RECORDS SUMMARY | 2025-03-24 14:37 | XMS_ITS | Encounter Summary ---
Author Organization [facility] Address [address] [place] [address] Phone Care Team Providers Care Technician'S Helper Name Role Phone Melissa Castrejon Primary Care Provider [phone] Ethan Ty Primary Care Provider [phone] Rosita Noble NP Primary Care Provider [phone] Jane Rabago Unavailable [phone] Encounter Details Date Type Department Care Team (Late Contact Info) Description 06/01/2022 Procedure Pass [facility] Endoscopy Admitting Dept Virtual Department [address] [place] [id number] Social History Tobacco Use Types Packs/Day Years [...] Upcoming Encounters Date Type Department Care Team ([facility] Contact Info) Description 08/30/2025 8:20 AM EST Office Visit [facility] Pulmonary, Allergy and Critical Care Medicine [address] [place], [place] [id number] Dana Campo MD [address] [address] [email or web address] documented as of this encounter Visit Diagnoses Not on filedocumented in this encounter Additional Health Concerns Infection Onset Date Last Indicated Resolved Time CoV-Exposed 08/31/2022 08/31/2022 09/05/2022 1:47 AM EST [...] documented as of this encounter Care Teams Technician'S Helper Relationship Specialty Start Date End Date Melissa Castrejon PA [address] [place] [address] [email or web address] PCP - General Unknown Provider Specialty 06/01/22 Ethan Ty PA [address] [place] [address] PCP - General Physician Agricultural Purchasing Agent 04/13/24 01/07/25 Rosita Noble NP [address] [place] [address] PCP - General Nurse Practitioner 01/08/25 Jane Rabago MBBS [address] [place] [phone] [email or web address] Primary Oncologist Medical Oncology 02/25/25 documented as of this encounter Additional Source Comments The information contained in this document represents components of the legal health record. It is not the complete legal health record.[facility]
--- OUTSIDE RECORDS SUMMARY | 2025-03-24 14:37 | XMS_ITS | Encounter Summary ---
Author Organization [facility] Address [address] [address] [place] [address] Phone Care Team Providers Care Staff Therapist Name Role Phone Lynn Abad MD Primary Care Provider [phone] Nellie Morales BOOTMAKER HAND Primary Care Provider Unknown, Unknown Primary Care Provider Melissa Ordonez Primary Care Provider Ethan Ty Primary Care Provider Rosita Noble BOOTMAKER HAND Primary Care Provider Jane Rabago MBBS Unavailable Encounter Details Date Type Department Care Team (Latest Contact Info) Description 05/31/2017 Transcribe Orders [facility] [address] [place], [place] [id number] Christopher Deleon MD [address] [place] [address] 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) Social History Tobacco Use Types [...] Pulmonary, Allergy and Critical Care Medicine [address] [place] [address] Dana Campo MD 10 [facility] 2nd [place] [address] [email or web address] documented as of this encounter Visit Diagnoses Diagnosis 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- Primary documented in this encounter Additional Health Concerns Infection Onset Date Last Indicated Resolved Time CoV-Risk 05/18/2020 05/22/2020 06/01/2020 1:24 AM EST CoV-Risk 06/21/2020 06/24/2020 07/05/2020 1:25 AM EST CoV-Risk 08/31/2020 09/02/2020 09/10/2020 1:2 5 AM EST CoV-Risk 10/11/2020 10/11/2020 10/21/2020 1:24 [...] documented as of this encounter Care Teams Staff Therapist Relationship Specialty Start Date End Date Lynn Abad MD PCP - General 05/09/17 09/05/21 Nellie Morales NP PCP - General Family Medicine 09/06/21 02/07/22 Unknown, Nilson, PCP - General 02/08/22 05/31/22 Melissa Castrejon PA [address] [place] [phone] [email or web address] PCP - General Unknown Provider Specialty 06/01/22 Ethan Ty PA [address] [place] [id number] PCP - General Physician Master Electrician 04/13/24 01/07/25 Rosita Noble NP [address] [place] [id number] PCP - General Nurse Practitioner 01/08/25 Jane Rabago MBBS [address] [place] [phone] [email or web address] Primary Oncologist Medical Oncology 02/25/25 documented as of this encounter Additional Source Comments The information contained in this document represents components of the legal health record. It is not the complete legal health record.[facility]
--- OUTSIDE RECORDS SUMMARY | 2025-03-24 14:37 | XMS_ITS | Encounter Summary ---
Author Organization [facility] Address [address] [facility] [address] [place] [address] Phone Care Team Providers Care Assistant Professor Of Nursing Name Role Phone Lynn Abad MD Primary Care Provider [phone] Nellie Morales PAN GREASER Primary Care Provider [phone] Unknown, Unknown Primary Care Provider Melissa Ordonez Primary Care Provider [phone] Ethan Ty Primary Care Provider [phone] Rosita Noble PAN GREASER Primary Care Provider [phone] Jane Rabago Unavailable [phone] Reason for Referral * Occupational Therapy (Routine) - Closed Specialty Diagnoses / Procedures Referred By Sammie kingsley Referred To Contact Occupational Therapy Diagnoses Encounter for rehabilitation RIGHT DE QUERVAIN TENDONITIS Procedures Treat Roberta Gonzalez MD Phone: tel: fax: [email or web address] [address] [address] Phone: tel: Referral ID Status Reason Start Date Expiration Date Visits Re quested Visits Authorized [id number] Closed 05/20/2017 05/30/2018 99 [phone] Encounter Details Date Type Department Care Team (Latest Contact Info) Description 05/30/2017 Transcribe Orders [facility] [address] [place] [address] Roberta Gonzalez MD [address] [place] [address] Orthopedics & Sports Medicine, [facility] [place] [address] [email or web address] Encounter for rehabilitation (Primary Dx) Social [...] Pulmonary, Allergy and Critical Care Medicine 10 [facility] [place] [address] Dana Campo MD 10 [facility] 2nd [place] [address] Scheduled Referrals Name Type Priority Associated Diagnoses Orde r Schedule Ambulatory referral to [facility] Occupational Therapy Outpatient Referral Routine Encounter for rehabilitation Ordered: 05/30/2017 documented as of this encounter Visit Diagnoses Diagnosis Encounter for rehabilitation- Primary documented in this encounter Additional Health [...] documented as of this encounter Care Teams Assistant Professor Of Nursing Relationship Specialty Start Date End Date Lynn Abad MD [email or web address] PCP - General 05/09/17 09/05/21 Nellie Morales NP PCP - General Family Medicine 09/06/21 02/07/22 Unknown, Unknown, PCP - General 02/08/22 05/31/22 Melissa Castrejon PA [address] [place] [address] [email or web address] PCP - General Unknown Provider Specialty 06/01/22 Ethan Ty PA [address] [place] [address] PCP - General Physician Daily Release And Dupe Printer 04/13/24 01/07/25 Rosita Noble NP [address] [place] [address] PCP - General Nurse Practitioner 01/08/25 Jane Rabago MBBS [address] [place] [address] [email or web address] Primary Oncologist Medical Oncology 02/25/25 documented as of this encounter Additional Source Comments The information contained in this document represents components of the legal health record. It is not the complete legal health record.[facility]
--- OUTSIDE RECORDS SUMMARY | 2025-03-24 14:37 | XMS_ITS | Encounter Summary ---
Author Organization [facility] Address [address] [facility] [address] [place] [address] Phone Care Team Providers Care Public Safety Teacher Name Role Phone Lynn Abad MD Primary Care Provider Nellie Morales TOP HAT BODY MAKER Primary Care Provider Unknown, Unknown Primary Care Provider Melissa Ordonez Primary Care Provider Ethan Ty Primary Care Provider Rosita Noble TOP HAT BODY MAKER Primary Care Provider Jane Rabago MBBS Unavailable Encounter Details Date Type Department Care Team (Latest Contact Info) Description 05/31/2017 Transcribe Orders [facility] Laboratory [address] [place], [place] [id number] Christopher Deleon MD [address] [place] [address] Mood disorder due to known physiological condition [...] Pulmonary, Allergy and Critical Care Medicine 10 [facility] [place] [address] Dana Campo MD 10 [facility] 2nd [place] [address] [email or web address] documented as of this encounter Procedures Procedure Name Priority Date/Time Associated Diagnosis Comments CARBAMAZEPINE (TEGRETOL) LEVEL Routine 05/31/2017 8:06 AM EST 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 Co de Phone Number [facility] [address] [place] [address] documented in this encounter Visit Diagnoses Diagnosis Mood disorder [...] documented as of this encounter Care Teams Public Safety Teacher Relationship Specialty Start Date End Date Lynn Abad MD [email or web address] PCP - General 05/09/17 09/05/21 Nellie Morales NP PCP - General Family Medicine 09/06/21 02/07/22 Unknown, Unknown, PCP - General 02/08/22 05/31/22 Melissa Castrejon PA [address] [place] [address] [email or web address] PCP - General Unknown Provider Specialty 06/01/22 Ethan Ty PA [address] [place] [address] PCP - General Physician Carbon Capture Power Plant Operator 04/13/24 01/07/25 Rosita Noble NP [address] [place] [address] PCP - General Nurse Practitioner 01/08/25 Jane Rabago MBBS [address] [place] [address] [email or web address] Primary Oncologist Medical Oncology 02/25/25 documented as of this encounter Additional Source Comments The information contained in this document represents components of the legal health record. It is not the complete legal health record.[facility]
--- OUTSIDE RECORDS SUMMARY | 2025-03-24 14:37 | XMS_ITS | Encounter Summary ---
Author Organization [facility] Address [address] [facility] [address] [place] [address] Phone Care Team Providers Care Principal Product Manager Name Role Phone Lynn Abad MD Primary Care Provider Nellie Morales ER TECH Primary Care Provider Unknown, Unknown Primary Care Provider Melissa Ordonez Primary Care Provider Ethan Ty Primary Care Provider Rosita Noble ER TECH Primary Care Provider Jane Rabago Unavailable [phone] Encounter Details Date Type Department Care Team (Late Contact Info) Description 04/28/2020 Procedure Pass [facility], Ct Scan - [address] [address] Social History Tobacco Use Types Packs/Day Years [...] Encounters Date Type Department Care Team (Late Contact Info) Description 08/30/2025 8:20 AM EST Office Visit [facility] Pulmonary, Allergy and Critical Care Medicine [address] [place] [address] Dana Campo MD 10 [facility] 2nd [place] [address] [email or web address] documented as of this encounter Visit Diagnoses [...] documented as of this encounter Care Teams Principal Product Manager Relationship Specialty Start Date End Date Lynn Abad MD PCP - General 05/09/17 09/05/21 Nellie Morales ER TECH PCP - General Family Medicine 09/06/21 02/07/22 Unknown, Nilson, PCP - General 02/08/22 05/31/22 Melissa Castrejon PA [address] [place] [address] [email or web address] PCP - General Unknown Provider Specialty 06/01/22 Ethan Ty PA [address] [place] [address] PCP - General Physician Salesforce Administrator 04/13/24 01/07/25 Rosita Noble NP [address] [place] [address] PCP - General Nurse Practitioner 01/08/25 Jane Rabago MBBS [address] [place] [address] [email or web address] Primary Oncologist Medical Oncology 02/25/25 documented as of this encounter Additional Source Comments The information contained in this document represents components of the legal health record. It is not the complete legal health record.[facility]
--- OUTSIDE RECORDS SUMMARY | 2025-03-24 14:37 | XMS_ITS | Encounter Summary ---
Author Organization [facility] Address [address] [facility] [address] [place] [address] Phone Care Team Providers Care Roofer Helper Name Role Phone Melissa Castrejon Primary Care Provider Etahn Ty Primary Care Provider [phone] Rosita Noble NP Primary Care Provider [phone] Jane Rabago Unavailable [phone] Reason for Visit * Reason Comments Medication Refill Encounter Details Date Type Department Care Team (Late st Contact Info) Description 10/26/2022 Refill [facility] [address] [place] [address] Nando [place] MD [address] [place] [address] Medication Refill Social History Tobacco Use Types [...] AM EST documented as of this encounter Functional Status * Calculated C-SSRS Risk Score (Lifetime/Recent) Answer Date of Assessment Author Moderate Risk 10/29/2022 8:17 AM EDT Theresa Floyd RN * [place] Suicide Severity Rating Scale (Screener/Recent Self-Report) Question Answer Date of Assessment Author 1. Wish to be (Past 1 Month) Yes 10/29/2022 8:17 AM EDT Theresa Floyd ae, RN 2. Non-Specific Active Suici hernandez Thoughts (Past 1 Month) Yes 10/29/2022 8:17 AM EDT Hermelinda Floyd RN 3. Active Suicidal Ideation with any Methods (Not Plan) Without Intent to Act (Past 1 Month) Yes 10/29/2022 8:17 AM EDT Theresa Floyd ae, RN 4. Active Suicidal Ideation with Some Intent to Act, Without Specific Plan (Past 1 Month) Yes 10/28/2022 5:15 PM EDT Brie De Dios RN 5. Active Suicidal Ideation with Specific Plan and Intent (Past 1 Month) No 10/28/2022 5:15 PM EDT Brie De Dios RN 6. Suicidal Behavior (Lifetime) Yes 3 8:17 AM EDT Theresa Floyd RN 6. Suicidal Behavior (3 Months) No 8:17 AM EDT Theersa Floyd RN documented as of this encounter Plan of Treatment Upcoming Encounters Date Type Department Care Team (Late st Contact Info) Description 08/30/2025 8:20 AM EST Office Visit [facility] Pulmonary, Allergy and Critical Care Medicine [address] [place] [address] Dana Campo MD [address] [place] [address] documented as of this encounter Visit Diagnoses Not on filedocumented in this encounter Additional Health Concerns Infection Onset Date Last Indicated Resolved Time CoV-Risk 01/14/2023 01/14/2023 01/25/2023 1:21 AM EDT CoV-Risk Comment:Neg covid 11/14/2023 11/14/2023 11/14/2023 2:43 PM E DT CoV-Risk Comment:Neg covid 11/18/2023 11/18/2023 11/19/2023 9:58 AM E DT CoV-Risk Comment:2 neg covid 01/30/2024 01/30/2024 02/04/2024 9:47 AM E DT CoV-Risk 02/17/2024 02/17/2024 02/28/2024 1:23 AM EDT CoV-Risk 07/27/2024 08/08/2024 08/19/2024 1:21 AM EST documented as of this encounter Care Teams Roofer Helper Relationship Specialty Start Date End Date Melissa Castrejon PA [address] [place] [address] [email or web address] PCP - General Unknown Provider Specialty 06/01/22 Ethan Ty PA [address] [place] [address] PCP - General Physician Financial Management Consultant 04/13/24 01/07/25 Rosita Noble NP [address] [place] [address] PCP - General Nurse Practitioner 01/08/25 Jane Rabago MBBS [address] [place] [address] [email or web address] Primary Oncologist Medical Oncology 02/25/25 documented as of this encounter Additional Source Comments The information contained in this document represents components of the legal health record. It is not the complete legal health record.[facility]
--- OUTSIDE RECORDS SUMMARY | 2025-03-24 14:37 | XMS_ITS | Encounter Summary ---
Author Organization [facility] Address [address] [facility] [address] [place] [address] Phone Care Team Providers Care Dump Attendant Name Role Phone Lynn Abad MD Primary Care Provider [phone] Nellie Morales AIR INTERCEPT CONTROLLER Primary Care Provider Unknown, Unknown Primary Care Provider Melissa Ordonez Primary Care Provider Ethan Ty Primary Care Provider Rosita Noble AIR INTERCEPT CONTROLLER Primary Care Provider [phone] Jane Rabago Unavailable Encounter Details Date Type Department Care Team (Late Contact Info) Description 04/06/2020 Procedure Pass [facility], Ct Scan - [address] [address] Social History Tobacco Use Types Packs/Day Years [...] Care Medicine [address] [place] [address] Dana Campo MD 10 [facility] 2nd [place] [address] [email or web address] documented as of this encounter Visit Diagnoses [...] documented as of this encounter Care Teams Dump Attendant Relationship Specialty Start Date End Date Lynn Abad MD PCP - General 05/09/17 09/05/21 Nellie Morales AIR INTERCEPT CONTROLLER PCP - General Family Medicine 09/06/21 02/07/22 Unknown, Nilson, PCP - General 02/08/22 05/31/22 Melissa Castrejon PA [address] [place] [address] [email or web address] PCP - General Unknown Provider Specialty 06/01/22 Ethan Ty PA [address] [place] [address] PCP - General Physician Forensic Psychiatrist 04/13/24 01/07/25 Rosita Noble NP [address] [place] [address] PCP - General Nurse Practitioner 01/08/25 Jane Rabago MBBS [address] [place] [address] [email or web address] Primary Oncologist Medical Oncology 02/25/25 documented as of this encounter Additional Source Comments The information contained in this document represents components of the legal health record. It is not the complete legal health record.[facility]
--- OUTSIDE RECORDS SUMMARY | 2025-03-24 14:37 | XMS_ITS | Encounter Summary ---
Author Organization [facility] Address [address] [facility] [address] [place] [address] Phone Care Team Providers Care Customer Support Technician Name Role Phone Rosita Noble NP Primary Care Provider [phone] Jane Rabago MBBLANK Unavailable [phone] Encounter Details Date Type Department Care Team (Late st Contact Info) Description 02/03/2025 Procedure Pass [place] Admitting Dept - Virtual Department 30 [place] [address] Social History Tobacco Use Types Packs/Day Years [...] got money to buy more. Never True 02/05/2025 Within the past 6 months the food we bought just didn't last and we didn't have enough money to get more. Never True Residential Stability Answer Date Recor ded What is your housing situation today? I have rex sing 02/05/2025 How many times have you move d in the past 12 months? Zero (I did not move) 02/05/2025 Paying for Meds Answer Date Recorded Do you have trouble paying for medicines? No 02/05/2025 Paying Utility Bills Answer Date Record ed Do you have trouble paying your heating or elect ricity bill? No 02/05/2025 Transportation Answer Date Recorded Has the lack of transportati on kept you from medical appointments or from getting medications? No 02/05/2025 Digital Access Answer Date Recorded No 02/05/2025 Yes 02/05/2025 Do you have reliable internet access at home? Ye s 02/05/2025 Do you have a device (e.g., phone, tablet, computer) with a working camera? Yes 02/05/2025 Intimate Partner Violence Answer Date R ecorded Are you denied basic needs s uch as food, clothing, or medical care? No 02/05/2025 In the past 12 months have y ou been in a relationship with a person who hurts, threatens, or tries to control you? No 02/05/2025 Are you denied basic needs s uch as food, clothing, or medical care? No 02/05/2025 In the past 12 months have y ou been in a relationship with a person who hurts, threatens, or tries to control you? No 02/05/2025 Comments No Sex and Gender Information Value Date Recorded Sex Assigned at Female 07/29/2017 9:44 AM EST Legal Sex Female 6:05 PM EST Gender Identity Female 07/29/2017 9:44 AM EST Sexual Orientation Straight 07/29/2017 9: 44 AM EST documented as of this encounter Functional Status * Calculated C-SSRS Risk Score (Lifetime/Recent) Answer Date of Assessment Author High Risk 02/05/2025 8:13 PM Maame Yap RN * [place] Suicide Severity Rating Scale (Screener/Recent Self-Report) Question Answer Date of Assessment Author 1. Wish to be (Past 1 Month) Yes 02/05/2025 8:13 PM Maame Yap RN 2. Non-Specific Active Suicidal Thoughts (Past 1 Month) Yes 02/05/2025 8:13 PM Maame Yap RN 3. Active Suicidal Ideation with any Methods (Not Plan) Without Intent to Act (Past 1 Month) Yes 02/05/2025 8:13 PM EDT Maame Gusman RN 4. Active Suicidal Ideation with Some Intent to Act, Without Specific Plan (Past 1 Month) Yes 02/05/2025 8:13 PM EDT Maame Gusman RN 5. Active Suicidal Ideation with Specific Plan and Intent (Past 1 Month) Yes 02/05/2025 8:13 PM EDT Maame Gusman RN 6. Suicidal Behavior (Lifetime) Yes 02/05/2025 8:13 PM EDT Maame Gusman RN 6. Suicidal Behavior (3 Months) Yes 02/05/2025 8:13 PM EDT Maame Gusman RN documented as of this encounter Plan of Treatment Upcoming Encounters Date Type Department Care Team (Late st Contact Info) Description 08/30/2025 8:20 AM EST Office Visit [facility] Pulmonary, Allergy and Critical Care Medicine 10 [place] [address] Dana Campo MD [address] [address] [email or web address] documented as of this encounter Visit Diagnoses Not on filedocumented in this encounter Care Teams Customer Support Technician Relationship Specialty Start Date End Date Rosita Noble NP [address] [place] [address] PCP - General Nurse Practitioner 01/08/25 Jane Rabago MBBS [address] [place] [address] Primary Oncologist Medical Oncology 02/25/25 documented as of this encounter Additional Source Comments The information contained in this document represents components of the legal health record. It is not the complete legal health record.[facility]
--- OUTSIDE RECORDS SUMMARY | 2025-03-24 14:37 | XMS_ITS | Encounter Summary ---
Author Organization [facility] Address [address] [facility] [address] [place] [address] Phone Care Team Providers Care Gaming Manager Name Role Phone Melissa Castrejon Primary Care Provider [phone] Ethan Ty Primary Care Provider [phone] Rosita Noble NP Primary Care Provider [phone] Jane Rabago Unavailable [phone] Encounter Details Date Type Department Care Team (Late st Contact Info) Description 09/26/2022 Procedure Pass [facility], Ct Scan - [address] [address] Social History Tobacco Use Types Packs/Day Years [...] Score (Lifetime/Recent) Answer Date of Assessment Author No Risk Indicated 09/26/2022 3:25 PM EST Flory Gallegos RN * [place] Suicide Severity Rating Scale (Screener/Recent Self-Report) Question Answer Date of Assessment Author 1. Wish to be (Past 1 Month) No 023 3:25 PM Flory Richey RN 2. Non-Specific Active Suici hernandez Thoughts (Past 1 Month) No 09/26/2022 3:25 PM Flory Richey , RN 6. Suicidal Behavior (Lifetime) No 3:25 PM Flory Richey RN documented as of this encounter Plan of Treatment Upcoming Encounters Date Type Department Care Team (Late st Contact Info) Description 08/30/2025 8:20 AM EST Office Visit [facility] Pulmonary, Allergy and Critical Care Medicine [address] [place] [address] Dana Campo MD [address] [address] [email or web address] documented as of this encounter [...] documented as of this encounter Care Teams Gaming Manager Relationship Specialty Start Date End Date Melissa Castrejon PA [address] [place] [address] [email or web address] PCP - General Unknown Provider Specialty 06/01/22 Ethan Ty PA [address] [place] [address] PCP - General Physician Security Services Manager 04/13/24 01/07/25 Rosita Noble NP [address] [place] [address] PCP - General Nurse Practitioner 01/08/25 Jane Rabago MBBS [address] [place] [address] [email or web address] Primary Oncologist Medical Oncology 02/25/25 documented as of this encounter Additional Source Comments The information contained in this document represents components of the legal health record. It is not the complete legal health record.[facility]
--- OUTSIDE RECORDS SUMMARY | 2025-03-24 14:37 | XMS_ITS | Encounter Summary ---
Author Organization [facility] Address [address] [facility] [address] [place] [address] Phone Care Team Providers Care Compositor Apprentice Name Role Phone Melissa Castrejon Primary Care Provider Ethan Ty Primary Care Provider [phone] Rosita Noble NP Primary Care Provider [phone] Jane Rabago Unavailable [phone] Reason for Visit * Reason Comments Medication Refill Encounter Details Date Type Department Care Team (Late Contact Info) Description 06/10/2022 Refill [facility] [address] [place] [address] Nando [place] MD [address] [place] [address] Medication Refill Social History Tobacco Use Types [...] Pulmonary, Allergy and Critical Care Medicine 10 [facility] [place] [address] [place] [address] Dana Campo MD 10 [facility] 2nd [place] [address] [email or web address] documented as of this encounter Visit Diagnoses [...] documented as of this encounter Care Teams Compositor Apprentice Relationship Specialty Start Date End Date Melissa Castrejon PA [address] [place] [address] [email or web address] PCP - General Unknown Provider Specialty 06/01/22 Ethan Ty PA [address] [place] [address] PCP - General Physician Contemporary Or Modern Dancer 04/13/24 01/07/25 Rosita Noble NP [address] [place] [address] PCP - General Nurse Practitioner 01/08/25 Jane Rabago MBBS [address] [place] [address] [email or web address] Primary Oncologist Medical Oncology 02/25/25 documented as of this encounter Additional Source Comments The information contained in this document represents components of the legal health record. It is not the complete legal health record.[facility]
--- OUTSIDE RECORDS SUMMARY | 2025-03-24 14:38 | XMS_ITS | Encounter Summary ---
Author Organization [facility] Address [address] [facility] [address] [place] [address] Phone Care Team Providers Care Hide And Skin Colerer Name Role Phone Lynn Abad MD Primary Care Provider Nellie Morales CLERK ANALYST Primary Care Provider Unknown, Unknown Primary Care Provider Melissa Ordonez Primary Care Provider Ethan Ty Primary Care Provider [phone] Rosita Noble CLERK ANALYST Primary Care Provider Jane Rabago Unavailable Encounter Details Date Type Department Care Team (Late Contact Info) Description 10/30/2020 Procedure Pass [facility], Ct Scan - [address] [address] Social History Tobacco Use Types Packs/Day Years [...] Pulmonary, Allergy and Critical Care Medicine [address] [facility] [place] [address] Dana Campo MD 10 [facility] 2nd [place] [address] [email or web address] documented as of this encounter Visit Diagnoses Not on filedocumented in this encounter Additional Health Concerns Infection Onset Date Last Indicated Resolved Time CoV-Risk 02/19/2022 02/19/2022 03/02/2022 1:22 AM EDT [...] documented as of this encounter Care Teams Hide And Skin Colerer Relationship Specialty Start Date End Date Lynn Abad MD PCP - General 05/09/17 09/05/21 Nellie Morales NP PCP - General Family Medicine 09/06/21 02/07/22 Unknown, Unknown, PCP - General 02/08/22 05/31/22 Melissa Castrejon PA [address] [place] [address] [email or web address] PCP - General Unknown Provider Specialty 06/01/22 Ethan Ty PA [address] [place] [address] PCP - General Physician Production Weigher 04/13/24 01/07/25 Rosita Noble NP [address] [place] [address] PCP - General Nurse Practitioner 01/08/25 Jane Rabago MBBS [address] [place] [address] [email or web address] Primary Oncologist Medical Oncology 02/25/25 documented as of this encounter Additional Source Comments The information contained in this document represents components of the legal health record. It is not the complete legal health record.[facility]
--- OUTSIDE RECORDS SUMMARY | 2025-03-24 14:38 | XMS_ITS | Encounter Summary ---
Author Organization [facility] Address [address] [facility] [address] [place] [address] Phone Care Team Providers Care Revenue Field Auditor Name Role Phone Lynn Abad MD Primary Care Provider Nellie Morales MERCHANDISE DISTRIBUTOR Primary Care Provider Unknown, Unknown Primary Care Provider Melissa Ordonez Primary Care Provider Ethan Ty Primary Care Provider [phone] Rosita Noble MERCHANDISE DISTRIBUTOR Primary Care Provider [phone] Jane Rabago MBBS Unavailable [phone] Encounter Details Date Type Department Care Team (Late st Contact Info) Description 12/27/2017 Procedure Pass [facility] Admitting Dept Virtual Department [address] [place] [address] Social History Tobacco Use Types Packs/Day Years Used Date Smoking Tobacco: Never Smokeless Tobacco: Never Alcohol Use Standard Drinks/Week Comments No 0 [...] Pulmonary, Allergy and Critical Care Medicine 10 [facility] [place] [address] Dana Campo MD [address] [address] [email or web address] documented as of this encounter [...] documented as of this encounter Care Teams Revenue Field Auditor Relationship Specialty Start Date End Date Lynn Abad MD PCP - General 05/09/17 09/05/21 Nellie Morales NP PCP - General Family Medicine 09/06/21 02/07/22 Unknown, Nilson, PCP - General 02/08/22 05/31/22 Melissa Castrejon PA [address] [place] [address] [email or web address] PCP - General Unknown Provider Specialty 06/01/22 Ethan Ty PA [address] [place] [address] PCP - General Physician Manufacturing Test Technician 04/13/24 01/07/25 Rosita Noble NP [address] [place] [address] PCP - General Nurse Practitioner 01/08/25 Jane Rabago MBBS [address] [place] [address] [email or web address] Primary Oncologist Medical Oncology 02/25/25 documented as of this encounter Additional Source Comments The information contained in this document represents components of the legal health record. It is not the complete legal health record.[facility]
--- OUTSIDE RECORDS SUMMARY | 2025-03-24 14:38 | XMS_ITS | Encounter Summary ---
Author Organization [facility] Address [address] [facility] [address] [place] [address] Phone Care Team Providers Care Brake [address] Freight Name Role Phone Lynn Abad MD Primary Care Provider Nellie Morales CABINETMAKER MAINTENANCE Primary Care Provider Unknown, Unknown Primary Care Provider Melissa Ordonez Primary Care Provider Ethan Ty Primary Care Provider Rosita Noble CABINETMAKER MAINTENANCE Primary Care Provider Jane RabagoBS Unavailable Reason for Referral * MRI/CAT Scan - Closed Specialty Diagnoses / Procedures Referred By Contac t Referred To Contact Radiology Diagnoses Elevated C-reactive protein (CRP) Flatulence Procedures CT Abdomen/Pelvis Betsy Maya PA-C Phone: tel: fax: mailto: Referral ID Status Reason Start Date Expiration Date Visits Re quested Visits Authorized [id number] Closed 10/30/2020 10/30/2021 1 1 Encounter Details Date Type Department Care Team (Latest Contact Info) Description 10/30/2020 Transcribe Orders [facility] Department [address] [place] [address] Betsy Maya PA-C [address] [place] [address] [email or web address] Elevated C-reactive protein (CRP) (Primary Dx); Flatulence Social History Tobacco Use Types Packs/Day Years [...] [facility] Pulmonary, Allergy and Critical Care Medicine [address] [place] [address] Dana Campo MD [address] [place] [address] [email or web address] documented as of this encounter Results * CT ABDOMEN/PELVIS WITH CONTRAST (11/30/2020 3:15 PM EDT) Anatomical Region Laterality Modality Abdomen, Pelvis Computed Tomogra phy 11/30/2020 3:20 PM EDT Impressions 11/30/2020 3:27 PM EDT Increase in spleen size consistent with mild splenomegaly. Hepatic steatosis. No active inflammatory changes or other specific source of the pain. Narrative 11/30/2020 3:27 PM EDT HISTORY: Abdominal pain COMPARISON: Multiple prior, most recent December 24, 2019 TECHNIQUE: After the administration of oral and intravenous contrast, multidetector CT is obtained from dome of the liver through the inferior pubic rami. Sagittal and coronal reformats generated. Automated exposure control utilized. FINDINGS: Lung bases: No findings of concern. Liver and spleen: Liver mildly low density consistent with underlying hepatic steatosis. No focal lesions of concern. Spleen has increased slightly in size, now measuring slightly more 15 cm in oblique craniocaudal extent compared to slightly over 14 cm previously. Craniocaudal extent is now measured at approximately 13 cm compared to 12 cm. No focal lesions. Biliary tree and pancreas: No findings of concern. Adrenals and : Left renal cyst measuring slightly under 5 cm noted at the upper pole. No solid masses or stones. There is no hydronephrosis. No adrenal masses. No worrisome adnexal masses. Hypodense area previously noted towards the lower uterine segment is no longer apparent. Bowel: Stomach unremarkable. Duodenal diverticulum at the region of the major papilla. Terminal ileum not opacified has some desiccated chyme within but no thickening or active inflammatory changes. Patient is status-post appendectomy. No evidence of colitis. No prominent diverticulosis. Nodes: No adenopathy detected. Vascular: No findings of concern. Soft tissues: No ascites, inflammatory change or fluid collection. Bones: There is broad-based scoliosis convex right in the thoracic spine, only partially imaged here with some cartilage of the left in the lower thoracic spine. No compression deformity or bony destructive lesions are identified. Procedure Note Preet Ozuna MD - 11/30/2020 HISTORY: Abdominal pain COMPARISON: Multiple prior, most recent December 24, 2019 TECHNIQUE: After the administration of oral and intravenous contrast,multidetector CT is obtained from dome of the liver through the inferiorpubic rami. Sagittal and coronal reformats generated. Automated exposurecontrol utilized. FINDINGS: Lung bases: No findings of concern. Liver and spleen: Liver mildly low density consistent with underlyinghepatic steatosis. No focal lesions of concern. Spleen has increasedslightly in size, now measuring slightly more 15 cm in obliquecraniocaudal extent compared to slightly over 14 cm previously.Craniocaudal extent is now measured at approximately 13 cm compared to 12cm. No focal lesions. Biliary tree and pancreas: No findings of concern. Adrenals and : Left renal cyst measuring slightly under 5 cm noted atthe upper pole. No solid masses or stones. There is no hydronephrosis. Noadrenal masses. No worrisome adnexal masses. Hypodense area previouslynoted towards the lower uterine segment is no longer apparent. Bowel: Stomach unremarkable. Duodenal diverticulum at the region of themajor papilla. Terminal ileum not opacified has some desiccated chymewithin but no thickening or active inflammatory changes. Patient isstatus-post appendectomy. No evidence of colitis. No prominentdiverticulosis. Nodes: No adenopathy detected. Vascular: No findings of concern. Soft tissues: No ascites, inflammatory change or fluid collection. Bones: There is broad-based scoliosis convex right in the thoracic spine,only partially imaged here with some cartilage of the left in the lowerthoracic spine. No compression deformity or bony destructive lesions areidentified. IMPRESSION: Increase in spleen size consistent with mild splenomegaly. Hepaticsteatosis. No active inflammatory changes or other specific source of thepain. Betsy Maya PA-C IMG CT ABD/PELVIS Final Result documented in this encounter Visit Diagnoses Diagnosis Elevated C-reactive protein (CRP)- Primary Flatulence Flatulence, eructation, and gas pain Elevated C-reactive protein (CRP) Flatulence Flatulence, eructation, and gas pain documented in this encounter Additional Health Concerns [...] documented as of this encounter Care Teams Brake [address] Freight Relationship Specialty Start Date End Date Lynn Abad MD [email or web address] PCP - General 05/09/17 09/05/21 Nellie Morales CABINETMAKER MAINTENANCE PCP - General Family Medicine 09/06/21 02/07/22 Unknown, Unknown, PCP - General 02/08/22 05/31/22 Melissa Castrejon PA [address] [place] [address] [email or web address] PCP - General Unknown Provider Specialty 06/01/22 Ethan Ty PA [address] [place] [address] PCP - General Physician Special Makeup Fx Artist Instructor 04/13/24 01/07/25 Rosita Noble NP [address] [place] [address] PCP - General Nurse Practitioner 01/08/25 Jane Rabago MBBS [address] [place] [address] Primary Oncologist Medical Oncology 02/25/25 documented as of this encounter Additional Source Comments The information contained in this document represents components of the legal health record. It is not the complete legal health record.[facility]
--- OUTSIDE RECORDS SUMMARY | 2025-03-24 14:38 | XMS_ITS | Encounter Summary ---
Author Organization [facility] Address [address] [facility] [address] [place] [address] Phone Care Team Providers Care Supervisor Pumping Station Name Role Phone Lynn Abad MD Primary Care Provider Nellie Morales NEWSPAPER MANAGING EDITOR Primary Care Provider Unknown, Unknown Primary Care Provider Melissa Ordonez Primary Care Provider Ethan Ty Primary Care Provider [phone] Rosita Noble NEWSPAPER MANAGING EDITOR Primary Care Provider [phone] Jane Rabago MBBS Unavailable [phone] Encounter Details Date Type Department Care Team (Late st Contact Info) Description 12/27/2017 Procedure Pass [facility], Ct Scan - [address] [address] Social History Tobacco Use Types Packs/Day Years [...] Pulmonary, Allergy and Critical Care Medicine 10 [facility] [address] [place] [address] Dana Campo MD 10 [facility] 2nd [facility] [place] [address] [email or web address] documented as of this [...] documented as of this encounter Care Teams Supervisor Pumping Station Relationship Specialty Start Date End Date Lynn Abad MD PCP - General 05/09/17 09/05/21 Nellie Morales, NEWSPAPER MANAGING EDITOR PCP - General Family Medicine 09/06/21 02/07/22 Unknown, Nilson, PCP - General 02/08/22 05/31/22 Melissa Castrejon PA [address] [place] [address] [email or web address] PCP - General Unknown Provider Specialty 06/01/22 Ethan Ty PA [address] [place] [address] PCP - General Physician Clinical Rn Manager 04/13/24 01/07/25 Rosita Noble NP [address] [place] [address] PCP - General Nurse Practitioner 01/08/25 Jane Rabago MBBS [address] [place] [address] [email or web address] Primary Oncologist Medical Oncology 02/25/25 documented as of this encounter Additional Source Comments The information contained in this document represents components of the legal health record. It is not the complete legal health record.[facility]
--- OUTSIDE RECORDS SUMMARY | 2025-03-24 14:38 | XMS_ITS | Encounter Summary ---
Author Organization [facility] Address [address] [facility] [address] [place] [address] Phone Care Team Providers Care Head Of Sales And Marketing Name Role Phone Lynn Abad MD Primary Care Provider Nellie Morales PARKS RECREATION COORDINATOR Primary Care Provider [phone] Unknown, Unknown Primary Care Provider Melissa Ordonez Primary Care Provider Ethan Ty Primary Care Provider Rosita Noble PARKS RECREATION COORDINATOR Primary Care Provider [phone] Jane Rabago Unavailable Encounter Details Date Type Department Care Team (Late Contact Info) Description 12/24/2019 Procedure Pass [facility], Ct Scan - [address] [address] Social History Tobacco Use Types Packs/Day Years [...] Care Medicine [address] [place] [address] Dana Campo MD 10 [facility] 2nd [place] [address] [email or web address] documented as of this encounter Visit [...] documented as of this encounter Care Teams Head Of Sales And Marketing Relationship Specialty Start Date End Date Lynn Abad MD PCP - General 05/09/17 09/05/21 Nellie Morales PARKS RECREATION COORDINATOR PCP - General Family Medicine 09/06/21 02/07/22 Unknown, Nilson, PCP - General 02/08/22 05/31/22 Melissa Castrejon PA [address] [place] [address] [email or web address] PCP - General Unknown Provider Specialty 06/01/22 Ethan Ty PA [address] [place] [address] PCP - General Physician Mechanical Design Drafter 04/13/24 01/07/25 Rosita Noble NP [address] [place] [address] PCP - General Nurse Practitioner 01/08/25 Jane Rabago MBBS [address] [place] [address] [email or web address] Primary Oncologist Medical Oncology 02/25/25 documented as of this encounter Additional Source Comments The information contained in this document represents components of the legal health record. It is not the complete legal health record.[facility]
--- OUTSIDE RECORDS SUMMARY | 2025-03-24 14:38 | XMS_ITS | Encounter Summary ---
Author Organization [facility] Address [address] [facility] [address] [place] [address] Phone Care Team Providers Care Plant Reliability Engineer Name Role Phone Lynn Abad MD Primary Care Provider Nellie Morales CORPORATE SECRETARY Primary Care Provider Unknown, Unknown Primary Care Provider Melissa Ordonez Primary Care Provider [phone] Ethan Ty Primary Care Provider [phone] Rosita Noble CORPORATE SECRETARY Primary Care Provider [phone] Jane Rabago Unavailable Encounter Details Date Type Department Care Team (Late st Contact Info) Description 07/01/2019 Procedure Pass [facility], [address] [address] Social History Tobacco Use Types Packs/Day Years [...] Care Medicine [address] [place] [address] Dana Campo MD 10 [facility] 2nd [place] [address] [email or web address] documented as of this encounter Visit Diagnoses [...] documented as of this encounter Care Teams Plant Reliability Engineer Relationship Specialty Start Date End Date Lynn Abad MD PCP - General 05/09/17 09/05/21 Nellie Morales CORPORATE SECRETARY PCP - General Family Medicine 09/06/21 02/07/22 Unknown, Nilson, PCP - General 02/08/22 05/31/22 Melissa Castrejon PA [address] [place] [address] [email or web address] PCP - General Unknown Provider Specialty 06/01/22 Ethan Ty PA [address] [place] [address] PCP - General Physician Strap Machine Operator 04/13/24 01/07/25 Rosita Noble NP [address] [place] [address] PCP - General Nurse Practitioner 01/08/25 Jane Rabago MBBS [address] [place] [address] [email or web address] Primary Oncologist Medical Oncology 02/25/25 documented as of this encounter Additional Source Comments The information contained in this document represents components of the legal health record. It is not the complete legal health record.[facility]
--- OUTSIDE RECORDS SUMMARY | 2025-03-24 14:38 | XMS_ITS | Encounter Summary ---
Author Organization [facility] Address [address] [place] [address] Phone Care Team Providers Care Online Editor Name Role Phone Rosita Noble NP Primary Care Provider [phone] Jane Rabago Unavailable [phone] Reason for Referral * Outpatient Procedure - Closed Specialty Diagnoses / Procedures Referred By Sammie kingsley Referred To Contact Radiology Diagnoses Abnormal imaging of central nervous system Procedures Mammogram Diagnostic Post Procedure (Right) Stacy Garcia MD [address] [address] Phone: tel: fax: mailto: Referral ID Status Reason Start Date Expiration Date Visits Re quested Visits Authorized [id number] Closed 01/25/2025 1 1 Encounter Details Date Type Department Care Team (Late st Contact Info) Description 01/25/2025 Ancillary Orders [facility] [address] [place] [address] Stacy Garcia MD [address] [address] [email or web address] Abnormal imaging of central nervous system (Primary Dx) Social History Tobacco Use Types [...] got money to buy more. Never True 01/18/2025 Within the past 6 months the food we bought just didn't last and we didn't have enough money to get more. Never True Residential Stability Answer Date Recor ded What is your housing situation today? I have rex sing 01/18/2025 How many times have you move d in the past 12 months? Zero (I did not move) 01/18/2025 Paying for Meds Answer Date Recorded Do you have trouble paying for medicines? No 01/18/2025 Paying Utility Bills Answer Date Record ed Do you have trouble paying your heating or elect ricity bill? No 01/18/2025 Transportation Answer Date Recorded Has the lack of transportati on kept you from medical appointments or from getting medications? No 01/18/2025 Digital Access Answer Date Recorded No 01/18/2025 Yes 01/18/2025 Do you have reliable internet access at home? Ye s 01/18/2025 Do you have a device (e.g., phone, tablet, computer) with a working camera? Yes 01/18/2025 Intimate Partner Violence Answer Date R ecorded Are you denied basic needs s uch as food, clothing, or medical care? No 01/18/2025 In the past 12 months have y ou been in a relationship with a person who hurts, threatens, or tries to control you? No 01/18/2025 Are you denied basic needs s uch as food, clothing, or medical care? No 01/18/2025 In the past 12 months have y ou been in a relationship with a person who hurts, threatens, or tries to control you? No 01/18/2025 Comments No Sex and Gender Information Value [...] Description 08/30/2025 8:20 AM EST Office Visit [facility] Pulmonary, Allergy and Critical Care Medicine [address] [place] [address] Dana Campo MD [address] [place] [address] documented as of this encounter Results * BI MAMMOGRAM DIAGNOSTIC POST PROCEDURE NO TOMOSYNTHESIS NO CAD (RIGHT) (01/25/2025 10:06 AM EDT) Anatomical Region Laterality Modality Breast Right, Breast Bilateral Right M ammography 01/25/2025 10:2 3 AM EDT Impressions 01/25/2025 10:27 AM EDT Ultrasound-guided needle localization of the right breast - please see report content for details. Narrative 01/25/2025 10:27 AM EDT BI CARE HOME BREAST NEEDLE LOCALIZATION (RIGHT), BI MAMMOGRAM DIAGNOSTIC POST PROCEDURE NO TOMOSYNTHESIS NO CAD (RIGHT) Additional patient information: The patient is status post ultrasound biopsy of a mass in the 9:00 position of the right breast, yielding benign changes (discordant). The biopsy clip (heart shape) is in good position. The patient presents for single-site localization prior to surgery scheduled on another day. COMPARISON: Comparison is made with relevant prior imaging. TECHNIQUE: The procedure was explained to the patient, including discussion of risks and benefits, and written informed consent was obtained. A preprocedural timeout was performed to confirm patient identity with multiple identifiers, as well as the side of the procedure to be performed. Ultrasound imaging was performed to localize the target. The procedure site was prepped using standard aseptic technique. Local anesthesia was administered and documented in the EMR. Under ultrasound guidance, needle localization was performed of the target lesion. FINDINGS: SITE #1 Location: Right breast 9:00 Target: Mass Localizer device: RF Tag ID#[id number] Post procedure mammogram: Localizer device in good position relative to the target. Specimen radiograph: Will be performed separately and dictated separately. The patient was discharged home in stable condition. Procedure Note Lynn Barbosa MD - 01/25/2025 BI CARE HOME BREAST NEEDLE LOCALIZATION (RIGHT), BI MAMMOGRAM DIAGNOSTIC POSTPROCEDURE NO TOMOSYNTHESIS NO CAD (RIGHT) Additional patient information: The patient is status post ultrasoundbiopsy of a mass in the 9:00 position of the right breast, yielding benignchanges (discordant). The biopsy clip (heart shape) is in good position.The patient presents for single- site localization prior to surgeryscheduled on another day. COMPARISON: Comparison is made with relevant prior imaging. TECHNIQUE: The procedure was explained to the patient, including discussion of risksand benefits, and written informed consent was obtained. A preproceduraltimeout was performed to confirm patient identity with multipleidentifiers, as well as the side of the procedure to be performed. Ultrasound imaging was performed to localize the target. The proceduresite was prepped using standard aseptic technique. Local anesthesia wasadministered and documented in the EMR. Under ultrasound guidance, needlelocalization was performed of the target lesion. FINDINGS: SITE #1 Location: Right breast 9:00 Target: Mass Localizer device: RF Tag ID#[id number] Post procedure mammogram: Localizer device in good position relative tothe target. Specimen radiograph: Will be performed separately and dictatedseparately. The patient was discharged home in stable condition. IMPRESSION: Ultrasound-guided needle localization of the right breast - please seereport content for details. us Stacy Garcia MD IMG MG EXAMS Final Resu lt documented in this encounter Visit Diagnoses Diagnosis Abnormal imaging of central nervous system- Primary Abnormal imaging of central nervous system documented in this encounter Care Teams Online Editor Relationship Specialty Start Date End Date Rosita Noble NP [address] [place] [address] PCP - General Nurse Practitioner 01/08/25 Jane Rabago MBBS [address] [place] [address] [email or web address] Primary Oncologist Medical Oncology 02/25/25 documented as of this encounter Additional Source Comments The information contained in this document represents components of the legal health record. It is not the complete legal health record.[facility]
--- OUTSIDE RECORDS SUMMARY | 2025-03-24 14:38 | XMS_ITS | Encounter Summary ---
Author Organization [facility] Address [address] [place] [address] Phone Care Team Providers Care Blister Packaging Machine Operator Name Role Phone Nellie Morales SPICE MILLER HAMMER MILL Primary Care Provider Unknown, Unknown Primary Care Provider Melissa Ordonez Primary Care Provider Ethan Ty Primary Care Provider [phone] Rosita Noble [employer]ILL[employer] Primary Care Provider [phone] Jane Rabago Unavailable [phone] Encounter Details Date Type Department Care Team (Late st Contact Info) Description 10/19/2021 Ancillary Orders [facility]Outside Imaging 30 [place], [place] [id number] System, Provider Not In, [place] [address] Social History Tobacco Use Types Packs/Day Years [...] Answer Date of Assessment Author High Risk 10/22/2021 5:34 PM EDT Eloisa Franklin RN * Mower Suicide Severity Rating Scale (Screener/Recent Self-Report) Question Answer Date of Assessment Author 1. Wish to be (Past 1 Month) Yes 10/22/2021 5:34 PM EDT Eloisa Franklin RN 2. Non-Specific Active Suicidal Thoughts (Past 1 Month) Yes 10/22/2021 5:34 PM EDT Eloisa Franklin RN 3. Active Suicidal Ideation with any Methods (Not Plan) Without Intent to Act (Past 1 Month) Yes 10/22/2021 5:34 PM EDT Eloisa Franklin RN 4. Active Suicidal Ideation with Some Intent to Act, Without Specific Plan (Past 1 Month) Yes 10/22/2021 5:34 PM EDT Eloisa Franklin RN 5. Active Suicidal Ideation with Specific Plan and Intent (Past 1 Month) Yes 10/22/2021 5:34 PM EDT Eloisa Franklin RN 6. Suicidal Behavior (Lifetime) Yes 10/22/2021 5:34 PM EDT Eloisa Franklin RN 6. Suicidal Behavior (3 Months) Yes 10/22/2021 5:34 PM EDT Eloisa Franklin RN documented as of this encounter Plan of Treatment Upcoming Encounters Date Type Department Care Team (Late st Contact Info) Description 08/30/2025 8:20 AM EST Office Visit [facility] Pulmonary, Allergy and Critical Care Medicine [address] [place] [address] Dana Campo MD [address] [place] [address] documented as of this encounter Results * Mammogram Outside (No Interpretation) (12/19/2016 12:00 AM EDT) Narrative SYSTEMGENERATED, DOCUMENTATION - 10/19/2021 12:04 PM EDT This study is for PACS storage only and not for interpretation. us Provider Not In System PhD IMG OUTSIDE IMAGING W /OUT INTERPRETATION Final Result * Mammogram Outside (No Interpretation) (12/08/2015 12:00 AM EDT) Narrative SYSTEMGENERATED, DOCUMENTATION - 10/19/2021 12:03 PM EDT This study is for PACS storage only and not for interpretation. us Provider Not In System PhD IMG OUTSIDE IMAGING W /OUT INTERPRETATION Final Result * Mammogram Outside (No Interpretation) (12/10/2014 12:00 AM EDT) Narrative SYSTEMGENERATED, DOCUMENTATION - 10/19/2021 12:04 PM EDT This study is for PACS storage only and not for interpretation. us Provider Not In System PhD IMG OUTSIDE IMAGING W /OUT INTERPRETATION Final Result documented in this encounter Visit Diagnoses Not on filedocumented [...] documented as of this encounter Care Teams Blister Packaging Machine Operator Relationship Specialty Start Date End Date Nellie Morales, SPICE MILLER [employer]AMMER MILL PCP - General Family Medicine 09/06/21 02/07/22 Unknown, Unknown, PCP - General 02/08/22 05/31/22 Melissa Castrejon PA [address] [place] [address] [email or web address] PCP - General Unknown Provider Specialty 06/01/22 Ethan Ty PA [address] [place] [address] PCP - General Physician Liquid Flavor Compounder 04/13/24 01/07/25 Rosita Noble NP [address] [place] [address] PCP - General Nurse Practitioner 01/08/25 Jane Rabago MBBS [address] [place] [address] [email or web address] Primary Oncologist Medical Oncology 02/25/25 documented as of this encounter Additional Source Comments The information contained in this document represents components of the legal health record. It is not the complete legal health record.[facility]
--- OUTSIDE RECORDS SUMMARY | 2025-03-24 14:38 | XMS_ITS | Encounter Summary ---
Author Organization [facility] Address [address] [place] [address] Phone Care Team Providers Care Assistant Professor Name Role Phone Lynn Abad MD Primary Care Provider Nellie Morales MOLTEN IRON POURER Primary Care Provider [phone] Unknown, Unknown Primary Care Provider Melissa Ordonez Primary Care Provider Ethan Ty Primary Care Provider [phone] Rosita Noble MOLTEN IRON POURER Primary Care Provider [phone] Jane Rabago MBBS Unavailable Encounter Details Date Type Department Care Team (Latest Contact Info) Description 12/12/[address] [facility] [address] [place], [place] [phone] Christopher Deleon MD [address] [place] [address] Mood disorder due to known physiological condition [...] Care Medicine [address] [place] [address] Dana Campo MD [address] [facility] 2nd [place] [address] [email or web address] documented as of this encounter Visit Diagnoses [...] of this encounter Care Teams Assistant Professor Relationship Specialty Start Date End Date Lynn Abad MD PCP - General 05/09/17 09/05/21 Nellie Morales NP PCP - General Family Medicine 09/06/21 02/07/22 Unknown, Nilson, PCP - General 02/08/22 05/31/22 Melissa Castrejon PA [address] [place] [address] [email or web address] PCP - General Unknown Provider Specialty 06/01/22 Ethan Ty PA [address] [place] [address] PCP - General Physician Transportation Inspector 04/13/24 01/07/25 Rosita Noble NP [address] [place] [address] PCP - General Nurse Practitioner 01/08/25 Jane Rabago MBBS [address] [place] [address] [email or web address] Primary Oncologist Medical Oncology 02/25/25 documented as of this encounter Additional Source Comments The information contained in this document represents components of the legal health record. It is not the complete legal health record.[facility]
--- OUTSIDE RECORDS SUMMARY | 2025-03-24 14:38 | XMS_ITS | Encounter Summary ---
Author Organization [facility] Address [address] [facility] [address] [place] [address] Phone Care Team Providers Care Director Of Strategic Programs Name Role Phone Lynn Abad MD Primary Care Provider Nellie Morales LABELING SPECIALIST Primary Care Provider Unknown, Unknown Primary Care Provider Melissa Ordonez Primary Care Provider Ethan Ty Primary Care Provider [phone] Rosita Noble LABELING SPECIALIST Primary Care Provider [phone] Jane Rabago MBBS Unavailable [phone] Encounter Details Date Type Department Care Team (Late st Contact Info) Description 04/04/2018 Procedure Pass [facility], Ct Scan - [address] [address] Social History Tobacco Use Types Packs/Day Years [...] Allergy and Critical Care Medicine [address] [facility] [address] [place] [address] Dana Campo MD [address] [facility] [address]nd [facility] [place] [address] [email or web address] documented as of this encounter Visit Diagnoses [...] documented as of this encounter Care Teams Director Of Strategic Programs Relationship Specialty Start Date End Date Lynn Abad MD PCP - General 05/09/17 09/05/21 Nellie Morales, LABELING SPECIALIST PCP - General Family Medicine 09/06/21 02/07/22 Unknown, Nilson, PCP - General 02/08/22 05/31/22 Melissa Castrejon PA [address] [place] [address] [email or web address] PCP - General Unknown Provider Specialty 06/01/22 Ethan Ty PA [address] [place] [address] PCP - General Physician Hide Inspector 04/13/24 01/07/25 Rosita Noble NP [address] [place] [address] PCP - General Nurse Practitioner 01/08/25 Jane Rabago MBBS [address] [place] [address] [email or web address] Primary Oncologist Medical Oncology 02/25/25 documented as of this encounter Additional Source Comments The information contained in this document represents components of the legal health record. It is not the complete legal health record.[facility]
--- OUTSIDE RECORDS SUMMARY | 2025-03-24 14:39 | XMS_ITS | Encounter Summary ---
Author Organization [facility] Address [address] [facility] [address] [facility] [address] [place] [address] Phone Care Team Providers Care Telecommunications Technician Name Role Phone Lynn Abad MD Primary Care Provider Nellie Morales MONUMENT ERECTOR Primary Care Provider [phone] Unknown, Unknown Primary Care Provider Melissa Ordonez Primary Care Provider Ethan Ty Primary Care Provider Rosita Noble MONUMENT ERECTOR Primary Care Provider [phone] Jane RabagoBS Unavailable Encounter Details Date Type Department Care Team (Latest Contact Info) Description 11/29/2017 Transcribe [address] [facility] [address] [place] [address] Betsy Maya PA-C [address] [place] [address] Diarrhea, unspecified type (Primary Dx); Anemia, unspecified type; Nausea Social History Tobacco Use Types Packs/Day Years [...] Pulmonary, Allergy and Critical Care Medicine [address] [place] [address] Dana Campo MD 10 [employer] [employer] 2nd [place] [address] [email or web address] documented as of this encounter Results * Vitamin B12 (11/29/2017 8:21 AM EDT) [facility] VITAMIN B12 546 232 - 1,245 pg/mL [facility] Comment:The reference range had been changed on November 01, 2017 from 243 - 894pg/mL to 232 - 1245 pg/mL. Blood 11/29/2017 8:21 AM EDT 11/29/2017 8:24 AM EDT us Betsy Maya PA-C LAB BLOOD ORDERABLES Final Resu lt Performing Organization Address City/[facility]/ZIP Co de Phone Number [address] [address] * Folate (11/29/2017 8:21 AM EDT) [facility] FOLIC ACID 16.7 4.2 - 19.9 ng/mL [facility] Blood 11/29/2017 8:21 AM EDT 11/29/2017 8:24 AM EDT us Betsy Maya PA-C LAB BLOOD ORDERABLES Final Resu lt Performing Organization Address City/[facility]/ZIP Co de Phone Number [address] [address] * Ferritin (11/29/2017 8:21 AM EDT) [facility] FERRITIN 40 13 - 150 ug/L [facility] Blood 11/29/2017 8:21 AM EDT 11/29/2017 8:24 AM EDT us Betsy Maya PA-C LAB BLOOD ORDERABLES Final Resu lt Performing Organization Address [facility] Co de Phone Number [address] [address] * Iron and iron binding capacity (11/29/2017 8:21 AM EDT) IRON 71 30 - 160 ug/dL [facility] IRON BINDING CAPACITY 243 228 - 428 ug/dL [facility] TRANSFERRIN SATURAT. 29 15 - 50 % [facility] Blood 11/29/2017 8:21 AM EDT 11/29/2017 8:24 AM EDT us Betsy Maya PA-C LAB BLOOD ORDERABLES Final Resu lt Performing Organization Address [facility]/ZIP Co de Phone Number [address] [address] * (ABNORMAL) C-Reactive Protein (11/29/2017 8:21 AM EDT) C REACTIVE PROTEIN 2.2(H) 0 - 0.5 mg/L [facility] Blood 11/29/2017 8:21 AM EDT 11/29/2017 8:24 AM EDT us Betsy Maya PA-C LAB BLOOD ORDERABLES Final Resu lt Performing Organization Address [facility]/ZIP Co de Phone Number [address] [address] * (ABNORMAL) CBC (11/29/2017 8:21 AM EDT) WBC 10.02 3.40 - 11.20 K/uL [facility] RBC 4.30 3.80 - 4.80 M/uL [facility] HGB 12.2 12.0 - 15.0 g/dL [facility] HCT 37.0 36.0 - 46.0 % [facility] PLT 226 130 - 400 K/uL [facility] MCV 86.0 79.0 - 98.0 fL [facility] MCH 28.4 27.0 - 34.8 pg [facility] MCHC 33.0 31.5 - 36.0 g/dL [facility] RDW 13.3 10.8 - 14.6 % [facility] MPV 9.3(L) 9.4 - 12.4 [facility] NRBC 0.00 /100 WBCs [facility] ABSOLUTE NRBC 0.00 K/uL [facility] Blood 11/29/2017 8:21 AM EDT 11/29/2017 8:24 AM EDT Betsy Maya PA-C LAB BLOOD ORDERABLES Final Resu lt Performing Organization Address City/[facility]/ZIP Co de Phone Number [facility] [address] [place] [address] * Tissue transglutaminase IgA (11/29/2017 8:21 AM EDT) TTG IGA ANTIBODY <1.2 <4.0 (Negative) U/mL [facility] DPT OF LAB MED AND PAT+ Blood 11/29/2017 8:21 AM EDT 11/29/2017 8:25 AM EDT Betsy Maya PA-C LAB BLOOD ORDERABLES Final Resu lt [facility] DPT OF LAB MED AND PAT+ [address] [place] [address] documented in this encounter Visit Diagnoses Diagnosis Diarrhea, unspecified type- Primary Anemia, unspecified type Nausea Nausea alone documented in this encounter Additional Health Concerns [...] documented as of this encounter Care Teams Telecommunications Technician Relationship Specialty Start Date End Date Lynn Abad MD PCP - General 05/09/17 09/05/21 Nellie Morales NP PCP - General Family Medicine 09/06/21 02/07/22 Unknown, Nilson, PCP - General 02/08/22 05/31/22 Melissa Castrejon PA [address] [place] [address] [email or web address] PCP - General Unknown Provider Specialty 06/01/22 Ethan Ty PA [address] [place] [address] PCP - General Physician Plaster Molder 04/13/24 01/07/25 Rosita Noble NP [address] [place] [address] PCP - General Nurse Practitioner 01/08/25 Jane Rabago MBBS [address] [place] [address] [email or web address] Primary Oncologist Medical Oncology 02/25/25 documented as of this encounter Additional Source Comments The information contained in this document represents components of the legal health record. It is not the complete legal health record.[facility]
--- OUTSIDE RECORDS SUMMARY | 2025-03-24 14:39 | XMS_ITS | Encounter Summary ---
Author Organization [facility] Address [address] [facility] [address] [place] [address] Phone Care Team Providers Care New Account Interviewer Name Role Phone Melissa Castrejon Primary Care Provider [phone] Ethan Ty Primary Care Provider [phone] Rosita Noble NP Primary Care Provider [phone] Jane Rabago Unavailable [phone] Reason for Visit * Reason Comments Medication Refill Encounter Details Date Type Department Care Team (Late st Contact Info) Description 11/21/2023 Refill [facility] [address] [place] [address] Nando Morris MD [address] [place] [address] Medication Refill Social History Tobacco Use Types [...] on file 11/24/2022 No 11/24/2022 No 11/24/2022 Digital Access Answer Date Recorded No 12/16/2022 No 12/16/2022 Reliable internet access at home? Not on file 12/16/2022 Device with a working camera? Not on file Comments No Sex and Gender Information Value [...] Pulmonary, Allergy and Critical Care Medicine 10 [place] [address] Dana Campo MD 10 [facility] 2nd [place] [address] [email or web address] documented as of this encounter Visit Diagnoses Not on filedocumented in this encounter Additional Health Concerns Infection Onset Date Last Indicated Resolved Time CoV-Risk Comment:2 neg covid 01/30/2024 01/30/2024 02/04/2024 9:47 AM E DT CoV-Risk 02/17/2024 02/17/2024 02/28/2024 1:23 AM EDT CoV-Risk 07/27/2024 08/08/2024 08/19/2024 1:21 AM EST documented as of this encounter Care Teams New Account Interviewer Relationship Specialty Start Date End Date Melissa Castrejon PA [address] [place] [address] [email or web address] PCP - General Unknown Provider Specialty 06/01/22 Ethan Ty PA [address] [place] [address] PCP - General Physician Scheduling Assistant 04/13/24 01/07/25 Rosita Noble NP [address] [place] [address] PCP - General Nurse Practitioner 01/08/25 Jane Rabago MBBS [address] [place], [place] [address] [email or web address] Primary Oncologist Medical Oncology 02/25/25 documented as of this encounter Additional Source Comments The information contained in this document represents components of the legal health record. It is not the complete legal health record.[facility]
--- OUTSIDE RECORDS SUMMARY | 2025-03-24 14:39 | XMS_ITS | Encounter Summary ---
Author Organization [facility] Address [address] [place] [address] Phone Care Team Providers Care Pbx Manager Name Role Phone Melissa Castrejon Primary Care Provider Ethan Ty Primary Care Provider [phone] Rosita Noble NP Primary Care Provider [phone] Jane Rabago Unavailable Encounter Details Date Type Department Care Team (Late st Contact Info) Description 01/20/2023 Procedure Pass [facility] Radiology [address] [place] [address] Social History Tobacco Use Types Packs/Day Years [...] Date of Assessment Author No Risk Indicated 01/20/2023 7:14 PM EDT Serge Barrera, RN * [place] Suicide Severity Rating Scale (Screener/Recent Self-Report) Question Answer Date of Assessment Author 1. Wish to be (Past 1 Month) No 01/20/2023 7:14 PM EDT Serge Barrera, RN 2. Non-Specific Active Suici hernandez Thoughts (Past 1 Month) No 01/20/2023 7:14 PM EDT Yoel Barrera RN 6. Suicidal Behavior (Lifetime) No 7:14 PM EDT Serge Barrera, RN documented as of this encounter Plan of Treatment Upcoming Encounters Date Type Department Care Team (Late st Contact Info) Description 08/30/2025 8:20 AM EST Office [place] [facility] [place], Allergy and Critical Care Medicine [address] [place] [address] Dana Campo MD [address] [address] documented as of this encounter Visit Diagnoses [...] documented as of this encounter Care Teams Pbx Manager Relationship Specialty Start Date End Date Melissa Castrejon PA [address] [place] [address] [email or web address] PCP - General Unknown Provider Specialty 06/01/22 Ethan Ty PA [address] [place] [address] PCP - General Physician Payroll Specialist 04/13/24 01/07/25 Rosita Noble NP [address] [place] [address] PCP - General Nurse Practitioner 01/08/25 Jane Rabago MBBS [address] [place] [address] [email or web address] Primary Oncologist Medical Oncology 02/25/25 documented as of this encounter Additional Source Comments The information contained in this document represents components of the legal health record. It is not the complete legal health record.[facility]
--- OUTSIDE RECORDS SUMMARY | 2025-03-24 14:39 | XMS_ITS | Encounter Summary ---
Author Organization [facility] Address [address] [place] [address] Phone Care Team Providers Care Php Developer Name Role Phone Lynn Abad MD Primary Care Provider Nellie Morales KICK PRESS OPERATOR Primary Care Provider [phone] Unknown, Unknown Primary Care Provider Melissa Ordonez Primary Care Provider Ethan Ty Primary Care Provider [phone] Rosita Noble KICK PRESS OPERATOR Primary Care Provider [phone] Jane RabagoBS Unavailable Reason for Referral * MRI/CAT Scan - Closed Specialty Diagnoses / Procedures Referred By Contac t Referred To Contact Radiology Diagnoses Anemia, unspecified type Diarrhea, unspecified type Nausea Procedures CT Abdomen/Pelvis Enterography Betsy Maya PA-C Phone: tel: fax: [email or web address] Referral ID Status Reason Start Date Expiration Date Visits Re quested Visits Authorized [id number] Closed 11/27/2017 11/27/2018 1 1 Encounter Details Date Type Department Care Team (Late st Contact Info) Description 11/27/2017 Ancillary Orders Virtual Department [address] [place] [address] Betsy Maya PA-C [address], [address] [place] [address] [email or web address] Anemia, unspecified type; Diarrhea, unspecified type; Nausea Social History Tobacco Use [...] Upcoming Encounters Date Type Department Care Team ([facility] st Contact Info) Description 08/30/2025 8:20 AM EST Office Visit [facility] Pulmonary, Allergy and Critical Care Medicine [address] [place] [address] Dana Campo MD [address] [place] [address] [email or web address] documented as of this encounter Results * CT ABDOMEN/PELVIS (ENTEROGRAPHY) WITH CONTRAST (12/11/2017 11:05 AM EDT) Anatomical Region Laterality Modality Abdomen, Pelvis Computed Tomogra phy 12/11/2017 12:1 7 PM EDT Impressions 12/11/2017 6:46 PM EDT No inflammatory bowel changes. No obstruction. Colonic and jejunal diverticulosis. Chronic hepatic steatosis. TOTAL CTDIvol: 17.00 mGy POS - [id number] Edited by: Joseline Baryr on 12/11/2017 1:20 PM Narrative 12/11/2017 6:46 PM EDT COMPARISON: 02/29/2016 TECHNIQUE: CT of the abdomen and pelvis with IV and Volumen contrast per enterography protocol multiplanar reformatted images generated. Automated exposure control utilized. FINDINGS: CT ABDOMEN: Lower thorax: No infiltrate in the basal lungs. No pleural or pericardial effusions. Liver: Stable Reidel lobe variant versus hepatomegaly. Parenchyma is mildly diminished in attenuation from fatty liver. Gallbladder/biliary tree: No calcified gallstones or pericholecystic inflammatory change. No biliary ductal dilatation Spleen: No abnormality detected. Pancreas: No new abnormality detected. Adrenal glands: No masses. Kidneys/ureters: No hydronephrosis. 3.4 cm cyst in the right upper kidney. Multiple bilateral too small to characterize hypodense lesions statistically represents cysts. Vasculature: Abdominal aorta has normal caliber. Hepatic veins and portal vein are patent. Peritoneum: No evidence of free intraperitoneal air, free fluid, or organized collections. Lymph nodes: No lymphadenopathy detected. Stomach/duodenum: Small hiatal hernia with stable mild wall thickening of the lower esophagus. Periampullary duodenal diverticulum. Body wall: No suspicious mass. CT PELVIS: Bladder: Partially distended without definite abnormality. Reproductive: 1.5 cm cyst in the posterior lower uterine segment. Bilateral ovarian cysts. The right ovarian cyst measures 2.1 cm. Left ovarian cyst measures 2.7 cm with a smaller adjacent corpus luteal cyst. Bowel: No evidence of a bowel obstruction. Appendix not visualized with certainty. Scattered diffuse colonic diverticulosis. Mild jejunal diverticulosis. No small bowel wall thickening or hyperenhancement. Peritoneum: Scant free fluid is likely physiologic. No organized collection. Lymph nodes: No iliac chain or inguinal lymphadenopathy. Bones: No compression deformities. Mild S-shaped scoliotic curvature of the thoracolumbar spine. Stable mild sclerotic changes along the sacroiliac joints greater along the iliac aspect. No destructive bone lesion. Procedure Note Gordy Wild MD - 12/11/2017 COMPARISON: 02/29/2016 TECHNIQUE: CT of the abdomen and pelvis with IV and Volumen contrast perenterography protocol multiplanar reformatted images generated. Automatedexposure control utilized. FINDINGS: CT ABDOMEN: Lower thorax: No infiltrate in the basal lungs. No pleural or pericardialeffusions. Liver: Stable Reidel lobe variant versus hepatomegaly. Parenchyma ismildly diminished in attenuation from fatty liver. Gallbladder/biliary tree: No calcified gallstones or pericholecysticinflammatory change. No biliary ductal dilatation Spleen: No abnormality detected. Pancreas: No new abnormality detected. Adrenal glands: No masses. Kidneys/ureters: No hydronephrosis. 3.4 cm cyst in the right upperkidney. Multiple bilateral too small to characterize hypodense lesionsstatistically represents cysts. Vasculature: Abdominal aorta has normal caliber. Hepatic veins and portalvein are patent. Peritoneum: No evidence of free intraperitoneal air, free fluid, ororganized collections. Lymph nodes: No lymphadenopathy detected. Stomach/duodenum: Small hiatal hernia with stable mild wall thickening ofthe lower esophagus. Periampullary duodenal diverticulum. Body wall: No suspicious mass. CT PELVIS: Bladder: Partially distended without definite abnormality. Reproductive: 1.5 cm cyst in the posterior lower uterine segment.Bilateral ovarian cysts. The right ovarian cyst measures 2.1 cm. Leftovarian cyst measures 2.7 cm with a smaller adjacent corpus luteal cyst. Bowel: No evidence of a bowel obstruction. Appendix not visualized withcertainty. Scattered diffuse colonic diverticulosis. Mild jejunaldiverticulosis. No small bowel wall thickening or hyperenhancement. Peritoneum: Scant free fluid is likely physiologic. No organizedcollection. Lymph nodes: No iliac chain or inguinal lymphadenopathy. Bones: No compression deformities. Mild S-shaped scoliotic curvature ofthe thoracolumbar spine. Stable mild sclerotic changes along thesacroiliac joints greater along the iliac aspect. No destructive bonelesion. IMPRESSION: No inflammatory bowel changes. No obstruction. Colonic and jejunaldiverticulosis. Chronic hepatic steatosis. TOTAL CTDIvol: 17.00 mGy POS - [id number] Edited by: Joseline Barry on 12/11/2017 1:20 PM Betsy Maya PA-C IMMarcos CT ABD/PELVIS Final Result documented in this encounter Visit Diagnoses Diagnosis Anemia, unspecified type Diarrhea, unspecified type Nausea Nausea alone Anemia, unspecified type Diarrhea, unspecified type Nausea Nausea alone documented in [...] documented as of this encounter Care Teams Php Developer Relationship Specialty Start Date End Date Lynn Abad MD PCP - General 05/09/17 09/05/21 Nellie Morales NP PCP - General Family Medicine 09/06/21 02/07/22 Unknown, NilsonMD PCP - General 02/08/22 05/31/22 Melissa Castrejon PA [address] [place] [address] [email or web address] PCP - General Unknown Provider Specialty 06/01/22 Ethan Ty PA [address] [place] [address] PCP - General Physician Roads Supervisor 04/13/24 01/07/25 Rosita Noble NP [address] [place] [address] PCP - General Nurse Practitioner 01/08/25 Jane Rabago MBBS [address] [place] [address] [email or web address] Primary Oncologist Medical Oncology 02/25/25 documented as of this encounter Additional Source Comments The information contained in this document represents components of the legal health record. It is not the complete legal health record.[facility]
--- OUTSIDE RECORDS SUMMARY | 2025-03-24 14:39 | XMS_ITS | Encounter Summary ---
Author Organization [facility] Address [address] [place] [address] Phone Care Team Providers Care Construction Manager Name Role Phone Rosita Noble NP Primary Care Provider [phone] Jane Rabago Unavailable [phone] Reason for Visit * Reason Onset Date Comments [facility] 90 day supply form- Iprat/Alb 0.5 08/2024 Encounter Details Date Type Department Care Team (Late st Contact Info) Description 03/23/2025 Telephone [facility] [place] Pulmonary, Allergy and Critical Care Medicine 10 [place], [place] [phone] Corina Brizuela 10 [place], [place] [phone] [email or web address] [facility] 90 day supply form- Iprat/Alb 0.5 Social History Tobacco Use Types Packs/Day Years [...] AM EST documented as of this encounter Progress Notes * Corina Brizuela - 03/23/2025 10:37 AM EDT [facility] signed [employer] day supply form- Iprat/Alb 0.5 - importing to [employer] and routing to them [phone] documented in this encounter Plan of Treatment Upcoming Encounters Date Type Department Care Team (Late st Contact Info) Description 08/30/2025 8:20 AM EST Office Visit [facility] Pulmonary, Allergy and Critical Care Medicine 10 [place] [address] Dana Campo MD 10 [facility] 2nd [place] [address] [email or web address] documented as of this encounter Visit Diagnoses Not on filedocumented in this encounter Care Teams Construction Manager Relationship Specialty Start Date End Date Rosita Noble NP [address] [place] [address] PCP - General Nurse Practitioner 01/08/25 Jane Rabago MBBS [address] [place] [address] [email or web address] Primary Oncologist Medical Oncology 02/25/25 documented as of this encounter Additional Source Comments The information contained in this document represents components of the legal health record. It is not the complete legal health record.[facility]
--- OUTSIDE RECORDS SUMMARY | 2025-03-24 14:39 | XMS_ITS | Encounter Summary ---
Author Organization [facility] Address [address] [place] [address] Phone Care Team Providers Care Flatcar Whacker Name Role Phone Melissa Castrejon Primary Care Provider Ethan Ty Primary Care Provider [phone] Rosita Noble NP Primary Care Provider [phone] Jane Rabago Unavailable [phone] Reason for Visit * Reason Comments Medication Refill Encounter Details Date Type Department Care Team (Late st Contact Info) Description 01/18/2023 Refill [facility] [address] [place] [address] Nando Morris MD 30 [place] [address] Medication Refill Social History Tobacco Use Types [...] 7:14 PM EDT Serge Barrera, RN * [place] Suicide Severity Rating Scale (Screener/Recent Self-Report) Question Answer Date of Assessment Author 1. Wish to be (Past 1 Month) No 01/20/2023 7:14 PM EDT Serge Barrera, RN 2. Non-Specific Active Suici hernandez Thoughts (Past 1 Month) No 01/20/2023 7:14 PM EDT Yoel Barrera RN 6. Suicidal Behavior (Lifetime) No 7:14 PM EDT Serge Barrera RN documented as of this encounter Plan of Treatment Upcoming Encounters Date Type Department Care Team (Late st Contact Info) Description 08/30/2025 8:20 AM EST Office Visit [facility] Pulmonary, Allergy and Critical Care Medicine [address] [place] [address] Dana Campo MD [address] [place] [address] documented as of this encounter Visit Diagnoses Not on filedocumented in this encounter Additional Health Concerns Infection Onset Date Last Indicated Resolved Time CoV-Risk 01/14/2023 01/14/2023 01/25/2023 1:21 AM EDT CoV-Risk Comment:Neg covid 11/14/2023 11/14/2023 11/14/2023 2:43 PM E DT CoV-Risk Comment:Neg covid 11/18/2023 11/18/2023 11/19/2023 9:58 AM E DT CoV-Risk Comment:2 neg covid 01/30/2024 01/30/202402/04/2024 9:47 AM E DT CoV-Risk 02/17/2024 02/17/2024 02/28/2024 1:23 AM EDT CoV-Risk 07/27/2024 08/08/2024 08/19/2024 1:21 AM EST documented as of this encounter Care Teams Flatcar Whacker Relationship Specialty Start Date End Date Melissa Castrejon PA [address] [place] [address] [email or web address] PCP - General Unknown Provider Specialty 06/01/22 Ethan Ty PA [address] [place] [address] PCP - General Physician Sales Leader 04/13/24 01/07/25 Rosita Noble NP [address] [place] [address] PCP - General Nurse Practitioner 01/08/25 Jane Rabago MBBS [address] [place] [address] [email or web address] Primary Oncologist Medical Oncology 02/25/25 documented as of this encounter Additional Source Comments The information contained in this document represents components of the legal health record. It is not the complete legal health record.[facility]
--- OUTSIDE RECORDS SUMMARY | 2025-03-24 14:39 | XMS_ITS | Encounter Summary ---
Author Organization [facility] Address [address] [place] [address] Phone Care Team Providers Care Real Estate Investment Analyst Name Role Phone Lynn Abad MD Primary Care Provider [phone] Nellie Morales BUILDING COORDINATOR Primary Care Provider [phone] Unknown, Unknown Primary Care Provider Melissa Ordonez Primary Care Provider [phone] Ethan Ty Primary Care Provider Rosita Noble BUILDING COORDINATOR Primary Care Provider Jane Rabago Unavailable Encounter Details Date Type Department Care Team (Late st Contact Info) Description 01/06/2021 Procedure Pass [facility], Ct Scan - [address] [address] Social History Tobacco Use Types Packs/Day Years [...] Date of Assessment Author No Risk Indicated 01/06/2021 10:04 PM EDT Mee Cee RN * [place] Suicide Severity Rating Scale (Screener/Recent Self-Report) Question Answer Date of Assessment Author 1. Wish to be (Past 1 Month) No 01/06/2021 10:04 PM SATYAT Mee Erwin RN 2. Non-Specific Active Suici hernandez Thoughts (Past 1 Month) No 01/06/2021 10:04 PM EDT Dipika Erwin RN 6. Suicidal Behavior (Lifetime) No 10:04 PM EDT Mee Erwin RN documented as of this encounter Plan of Treatment Upcoming Encounters Date Type Department Care Team ([facility] st Contact Info) Description 08/30/2025 8:20 AM EST Office Visit [facility] Pulmonary, Allergy and Critical Care Medicine [address] [place] [address] Dana Campo MD [address] [place] [address] [email or web address] documented as of this encounter Visit Diagnoses Not on filedocumented in this encounter Additional Health Concerns Infection Onset Date Last Indicated Resolved Time CoV-Risk 02/19/2022 02/19/2022 03/02/2022 1:22 AM EDT CoV-Exposed 08/31/2022 08/31/2022 09/05/2022 1:47 AM EST CoV-Risk Comment:Cov exposed 09/01/2022 09/02/2022 09/04/2022 6:38 AM EST CoV-Risk 09/18/2022 09/18/2022 09/18/2022 11:3 3 AM [...] documented as of this encounter Care Teams Real Estate Investment Analyst Relationship Specialty Start Date End Date Lynn Abad MD PCP - General 05/09/17 09/05/21 Nellie Morales NP PCP - General Family Medicine 09/06/21 02/07/22 Unknown, Unknown, PCP - General 02/08/22 05/31/22 Melissa Castrejon PA [address] [place] [address] [email or web address] PCP - General Unknown Provider Specialty 06/01/22 tEhan Ty PA [address] [place] [address] PCP - General Physician Road Inspector 04/13/24 01/07/25 Rosita Noble NP [address] [place] [address] PCP - General Nurse Practitioner 01/08/25 Jane Rabago MBBS [address] [place] [address] [email or web address] Primary Oncologist Medical Oncology 02/25/25 documented as of this encounter Additional Source Comments The information contained in this document represents components of the legal health record. It is not the complete legal health record.[facility]
--- OUTSIDE RECORDS SUMMARY | 2025-03-24 14:39 | XMS_ITS | Encounter Summary ---
Author Organization [facility] Address [address] [place] [address] Phone Care Team Providers Care Inspector Process Name Role Phone Lynn Abad MD Primary Care Provider Nellie Morales PROFESSOR OF BIOCHEMISTRY Primary Care Provider Unknown, Unknown Primary Care Provider Melissa Ordonez Primary Care Provider Ethan Ty Primary Care Provider [phone] Rosita Noble PROFESSOR OF BIOCHEMISTRY Primary Care Provider [phone] Jane Rabago MBBS Unavailable [phone] Encounter Details Date Type Department Care Team (Late st Contact Info) Description 11/27/2017 Procedure Pass [facility], Ct Scan - [address] [address] Social History Tobacco Use Types Packs/Day Years [...] Pulmonary, Allergy and Critical Care Medicine [address] [facility] [address] [place] [address] Dana Campo MD 10 [facility] [facility] [place] [address] [email or web address] documented as [...] documented as of this encounter Care Teams Inspector Process Relationship Specialty Start Date End Date Lynn Abad MD PCP - General 05/09/17 09/05/21 Nellie Morales, PROFESSOR OF BIOCHEMISTRY PCP - General Family Medicine 09/06/21 02/07/22 Unknown, Nilson, PCP - General 02/08/22 05/31/22 Melissa Castrejon PA [address] [place] [address] [email or web address] PCP - General Unknown Provider Specialty 06/01/22 Ethan Ty PA [address] [place] [address] PCP - General Physician Powertrain Calibration Engineer 04/13/24 01/07/25 Rosita Noble NP [address] [place] [address] PCP - General Nurse Practitioner 01/08/25 Jane Rabago MBBS [address] [place] [address] [email or web address] Primary Oncologist Medical Oncology 02/25/25 documented as of this encounter Additional Source Comments The information contained in this document represents components of the legal health record. It is not the complete legal health record.[facility]
--- OUTSIDE RECORDS SUMMARY | 2025-03-24 14:39 | XMS_ITS | Encounter Summary ---
Author Organization [facility] Address [address] [place] [address] Phone Care Team Providers Care Senior Education Specialist Name Role Phone Lynn Abad MD Primary Care Provider Nellie Morales PRODUCTION ASSOCIATE Primary Care Provider [phone] Unknown, Unknown Primary Care Provider Melissa Ordonez Primary Care Provider Ethan Ty Primary Care Provider [phone] Rosita Noble PRODUCTION ASSOCIATE Primary Care Provider [phone] Jane Rabago MBBS Unavailable [phone] Encounter Details Date Type Department Care Team (Latest Contact Info) Description 08/31/2020 Transcribe Orders Virtual Department [address] [place] [address] Lynn Abad MD 70 [place], [place] [id number] [email or web address] Cough (Primary Dx); SOB (shortness of breath) Social History Tobacco Use Types Packs/Day Years [...] CD Pulmonary, Allergy and Critical Care Medicine 10 [facility] [place] [address] Dana Campo MD [address] [place] [address] 2nd [place] [address] [email or web address] documented as of this encounter Results * COVID-19 PCR Order (09/02/2020 7:50 AM EST) COVID Testing Status Specimen received in analyzing lab. Results should be available within 24 to 48 hrs. [facility] Symptomatic? YES [facility] 09/02/2020 7:50 AM EST 09/02/2020 11:18 AM EST us Lynn Abad MD BODY FLUIDS AND STOOLS ORDER KATHRYN Final Result Performing Organization Address City/State/[facility] Co de Phone Number [facility] [address] [place] [address] [facility] [address] [place] [address] documented in this encounter Visit Diagnoses Diagnosis Cough- Primary SOB (shortness of breath) Shortness of breath documented in this encounter Additional Health Concerns Infection Onset Date Last Indicated Resolved Time CoV-Risk 08/31/2020 09/02/2020 09/10/2020 1:25 AM EST [...] documented as of this encounter Care Teams Senior Education Specialist Relationship Specialty Start Date End Date Lynn Abad MD [email or web address] PCP - General 05/09/17 09/05/21 Nellie Morales PRODUCTION ASSOCIATE PCP - General Family Medicine 09/06/21 02/07/22 Unknown, Nilson, PCP - General 02/08/22 05/31/22 Melissa Castrejon PA [address] [place] [address] [email or web address] PCP - General Unknown Provider Specialty 06/01/22 Ethan Ty PA [address] [place] [address] PCP - General Physician Outside Machinist Helper 04/13/24 01/07/25 Rosita Noble NP [address] [place] [address] PCP - General Nurse Practitioner 01/08/25 Jane Rabago MBBS [address] [place] [address] [email or web address] Primary Oncologist Medical Oncology 02/25/25 documented as of this encounter Additional Source Comments The information contained in this document represents components of the legal health record. It is not the complete legal health record.[facility]
--- OUTSIDE RECORDS SUMMARY | 2025-03-24 14:39 | XMS_ITS | Encounter Summary ---
Author Organization [facility] Address [address] [facility] [address] [facility] [address] [place] [address] Phone Care Team Providers Care Flask Carrier Name Role Phone Rosita Noble NP Primary Care Provider [phone] Jane Rabago MBBLANK Unavailable [phone] Encounter Details Date Type Department Care Team (Late st Contact Info) Description 03/08/2025 Procedure Pass [facility], Ct Scan - [facility] [address] [place] [address] Social History Tobacco Use Types Packs/Day Years [...] housing situation today? I have rex sing 02/17/2025 How many times have you move [...] Answer Date of Assessment Author High Risk 03/09/2025 1:36 PM EDT Jaya Steiner, RON * [place] Suicide Severity Rating Scale (Screener/Recent Self-Report) Question Answer Date of Assessment Author 1. Wish to be (Past 1 Month) No 025 1:36 PM EDT Jasper Steiner, RON 2. Non-Specific Active Suici hernandez Thoughts (Past 1 Month) No 03/09/2025 1:36 PM EDT Jasper Steiner, RN 6. Suicidal Behavior (Lifetime) Yes 1:36 PM EDT Jasper Steiner, RN 6. Suicidal Behavior (3 Months) Yes 5 1:36 PM EDT Jasper Steiner RN documented as of this encounter Plan of Treatment Upcoming Encounters Date Type Department Care Team (Late st Contact Info) Description 08/30/2025 8:20 AM EST Office Visit [facility] Pulmonary, Allergy and Critical Care Medicine [address] [place] [address] Dana Campo MD [address] [facility] 2nd [place] [address] [email or web address] documented as of this encounter Visit Diagnoses Not on filedocumented in this encounter Care Teams Flask Carrier Relationship Specialty Start Date End Date Rosita Noble NP [address] [place] [address] PCP - General Nurse Practitioner 01/08/25 Jane Rabago MBBS [address] [place] [address] [email or web address] Primary Oncologist Medical Oncology 02/25/25 documented as of this encounter Additional Source Comments The information contained in this document represents components of the legal health record. It is not the complete legal health record.[facility]
--- OUTSIDE RECORDS SUMMARY | 2025-03-24 14:39 | XMS_ITS | Encounter Summary ---
Author Organization [facility] Address [address] [place] [address] Phone Care Team Providers Care Twister Tender Name Role Phone Lynn Abad MD Primary Care Provider Nellie Morales CORPORATE STRATEGY ASSOCIATE Primary Care Provider [phone] Unknown, Unknown Primary Care Provider Melissa Ordonez Primary Care Provider [phone] Ethan Ty Primary Care Provider [phone] Rosita Noble CORPORATE STRATEGY ASSOCIATE Primary Care Provider [phone] Jane Rabago Unavailable [phone] Encounter Details Date Type Department Care Team (Late st Contact Info) Description 01/06/2021 Procedure Pass [facility], Ct Scan - [address] [address] Social History Tobacco Use Types Packs/Day Years [...] 10:04 PM EDT Mee Cee RN * [place] Suicide Severity Rating Scale (Screener/Recent Self-Report) Question [...] Upcoming Encounters Date Type Department Care Team ([facility] st Contact Info) Description 08/30/2025 8:20 AM EST Office Visit [facility] Pulmonary, Allergy and Critical Care Medicine [address] [place] [address] Dana Campo MD [address] [place] [address] [email or web address] documented as of this encounter [...] documented as of this encounter Care Teams Twister Tender Relationship Specialty Start Date End Date Lynn Abad MD PCP - General 05/09/17 09/05/21 Nellie Morales NP PCP - General Family Medicine 09/06/21 02/07/22 Unknown, Unknown, PCP - General 02/08/22 05/31/22 Melissa Castrejon PA [address] [place] [address] [email or web address] PCP - General Unknown Provider Specialty 06/01/22 Ethan Ty PA [address] [place] [address] PCP - General Physician Scarifier Operator 04/13/24 01/07/25 Rosita Noble NP [address] [place] [address] PCP - General Nurse Practitioner 01/08/25 Jane Rabago MBBS [address] [place] [address] [email or web address] Primary Oncologist Medical Oncology 02/25/25 documented as of this encounter Additional Source Comments The information contained in this document represents components of the legal health record. It is not the complete legal health record.[facility]
--- OUTSIDE RECORDS SUMMARY | 2025-03-24 14:39 | XMS_ITS | Encounter Summary ---
Author Organization [facility] Address [address] [place] [address] Phone Care Team Providers Care Mobile Practice Lead Name Role Phone Lynn Abad MD Primary Care Provider [phone] Nellie Morales MARKETING DESIGNER Primary Care Provider Unknown, Unknown Primary Care Provider Melissa Ordonez Primary Care Provider Ethan Ty Primary Care Provider [phone] Rosita Noble MARKETING DESIGNER Primary Care Provider [phone] Jane Rabago MBBS Unavailable Encounter Details Date Type Department Care Team (Latest Contact Info) Description 10/18/2017 Transcribe Orders [facility] Laboratory [address] [place], [place] [id number] Christopher Deleon MD [address] [place] [address] Mood disorder due to known physiological condition [...] Critical Care Medicine [address] [place] [address] [place] [address] Dana Campo MD 10 [facility] 2nd [place] [address] documented as of this encounter Results * CARBAMAZEPINE (TEGRETOL) LEVEL (10/18/2017 8:25 AM EDT) CARBAMAZEPINE 10.4 8.0 - 12.0 ug/mL [facility] Blood 10/18/2017 8:25 AM EDT 10/18/2017 10:54 AM EDT Christopher Deleon MD LAB BLOOD ORDERABLES Final Result [facility] [address] [place] [address] documented in this encounter Visit Diagnoses Diagnosis [...] documented as of this encounter Care Teams Mobile Practice Lead Relationship Specialty Start Date End Date Lynn Abad MD [email or web address] PCP - General 05/09/17 09/05/21 Nellie Morales NP PCP - General Family Medicine 09/06/21 02/07/22 Unknown, [place], PCP - General 02/08/22 05/31/22 Melissa Castrejon PA [address] [place] [address] [email or web address] PCP - General Unknown Provider Specialty 06/01/22 Ethan Ty PA [address] [place] [address] PCP - General Physician Orthopedic Surgeon 04/13/24 01/07/25 Rosita Noble NP [address] [place] [address] PCP - General Nurse Practitioner 01/08/25 Jane Rabago MBBS [address] [place] [address] [email or web address] Primary Oncologist Medical Oncology 02/25/25 documented as of this encounter Additional Source Comments The information contained in this document represents components of the legal health record. It is not the complete legal health record.[facility]
--- OUTSIDE RECORDS SUMMARY | 2025-03-24 14:39 | XMS_ITS | Encounter Summary ---
Author Organization [facility] Address [address] [place] [address] Phone Care Team Providers Care Sheet Metal Contractor Name Role Phone Melissa Castrejon Primary Care Provider Ethan Ty Primary Care Provider [phone] Rosita Noble NP Primary Care Provider [phone] Jane Rabago Unavailable [phone] Reason for Visit * Reason Comments Medication Refill Encounter Details Date Type Department Care Team (Late st Contact Info) Description 04/12/2023 Refill [facility] [address] [place] [address] Nando Morris MD [address] [place] [address] Medication Refill Social History Tobacco Use Types Packs/Day Years Used Date Smoking Tobacco: Never Passive Smoke Exposure: Never Smokeless Tobacco: Never Comments:second hand smoke i n building Alcohol Use Standard Drinks/Week Comments No 0 (1 standard drink = 0.6 oz pur e alcohol) Education Answer Date Recorded Are you interested in more education? Not on anhai e 11/24/2022 Are you concerned about learning? [...] Pulmonary, Allergy and Critical Care Medicine 10 [facility] [place] [address] Dana Campo MD 10 [facility] 2nd [place] [address] [email or web address] documented as of this encounter Visit Diagnoses Not on filedocumented in this encounter Additional Health Concerns Infection Onset Date Last Indicated Resolved Time CoV-Risk Comment:Neg covid 11/14/2023 11/14/2023 11/14/2023 2:43 PM E DT CoV-Risk Comment:Neg covid 11/18/2023 11/18/2023 11/19/2023 9:58 AM E DT CoV-Risk Comment:2 neg covid 01/30/2024 01/30/2024 02/04/2024 9:47 AM E DT CoV-Risk 02/17/2024 02/17/2024 02/28/2024 1:23 AM EDT CoV-Risk 07/27/2024 08/08/2024 08/19/2024 1:21 AM EST documented as of this encounter Care Teams Sheet Metal Contractor Relationship Specialty Start Date End Date Melissa Castrejon PA [address] [place] [address] [email or web address] PCP - General Unknown Provider Specialty 06/01/22 Ethan Ty PA [address] [place] [address] PCP - General Physician Desk Director 04/13/24 01/07/25 Rosita Noble NP [address] [place] [address] PCP - General Nurse Practitioner 01/08/25 Jane Rabago MBBS [address] [place] [address] [email or web address] Primary Oncologist Medical Oncology 02/25/25 documented as of this encounter Additional Source Comments The information contained in this document represents components of the legal health record. It is not the complete legal health record.[facility]
--- OUTSIDE RECORDS SUMMARY | 2025-03-24 14:39 | XMS_ITS | Encounter Summary ---
Author Organization [facility] Address [address] [facility] [facility] [facility] [address] [place] [address] Phone Care Team Providers Care Bundle Helper Name Role Phone Melissa Castrejon Primary Care Provider Ethan Ty Primary Care Provider [phone] Rosita Noble NP Primary Care Provider [phone] Jane Rabago Unavailable [phone] Reason for Visit * Reason Comments Medication Refill Encounter Details Date Type Department Care Team (Late st Contact Info) Description 08/02/2023 Refill [facility] [address] [place] [address] Nando Morris MD [address] [place] [address] Medication Refill Social History Tobacco Use Types [...] Date of Assessment Author No Risk Indicated 08/03/2023 9:07 PM EST Amanda Breaux RN * [place] Suicide Severity Rating Scale (Screener/Recent Self-Report) Question Answer Date of Assessment Author 1. Wish to be (Past 1 Month) No 024 9:07 PM Samuel Khan RN 2. Non-Specific Active Suici hernandez Thoughts (Past 1 Month) No 08/03/2023 9:07 PM Samuel Khan RN 6. Suicidal Behavior (Lifetime) No 9:07 PM Samuel Khan RN documented as of this encounter Plan of Treatment Upcoming Encounters Date Type Department Care Team (Late st Contact Info) Description 08/30/2025 8:20 AM EST Office Visit [facility] Pulmonary, Allergy and Critical Care Medicine [address] [place] [address] Dana Campo MD [address] [place] [address] [email or web address] documented as of this encounter Visit Diagnoses [...] documented as of this encounter Care Teams Bundle Helper Relationship Specialty Start Date End Date Melissa Castrejon PA [address] [place] [address] [email or web address] PCP - General Unknown Provider Specialty 06/01/22 Ethan Ty PA [address] [place] [address] PCP - General Physician Staff Anesthetist 04/13/24 01/07/25 Rosita Noble NP [address] [place] [address] PCP - General Nurse Practitioner 01/08/25 Jane Rabago MBBS [address] [place] [address] [email or web address] Primary Oncologist Medical Oncology 02/25/25 documented as of this encounter Additional Source Comments The information contained in this document represents components of the legal health record. It is not the complete legal health record.[facility]
--- OUTSIDE RECORDS SUMMARY | 2025-03-24 14:39 | XMS_ITS | Encounter Summary ---
Author Organization [facility] Address [address] [place] [address] Phone Care Team Providers Care Reimbursement Spec Name Role Phone Melissa Castrejon Primary Care Provider Ethan Ty Primary Care Provider [phone] Rosita Noble NP Primary Care Provider [phone] Jane Rabago Unavailable [phone] Reason for Visit * Reason Comments Medication Refill Encounter Details Date Type Department Care Team (Late st Contact Info) Description 07/04/2023 Refill [facility] [address] [place] [address] Nando Morris MD [address] [place] [address] Medication Refill Social History Tobacco Use Types [...] Pulmonary, Allergy and Critical Care Medicine 10 [facility] [place] [address] Dana Campo MD 10 [facility] 2nd [place] [address] [email or web address] documented as of this encounter Visit Diagnoses [...] documented as of this encounter Care Teams Reimbursement Spec Relationship Specialty Start Date End Date Melissa Castrejon PA [address] [place] [address] [email or web address] PCP - General Unknown Provider Specialty 06/01/22 Ethan Ty PA [address] [place] [address] PCP - General Physician Inspector Balance Wheel Motion 04/13/24 01/07/25 Rosita Noble NP [address] [place] [address] PCP - General Nurse Practitioner 01/08/25 Jane Rabago MBBS [address] [place] [address] [email or web address] Primary Oncologist Medical Oncology 02/25/25 documented as of this encounter Additional Source Comments The information contained in this document represents components of the legal health record. It is not the complete legal health record.[facility]
--- OUTSIDE RECORDS SUMMARY | 2025-03-24 14:39 | XMS_ITS | Encounter Summary ---
Author Organization [facility] Address [address] [facility] [address] [facility] [address] [place] [address] Phone Care Team Providers Care Engraver Pantograph Name Role Phone Melissa Castrejon Primary Care Provider [phone] Ethan Ty Primary Care Provider [phone] Rosita Noble NP Primary Care Provider [phone] Jane Rabago Unavailable [phone] Encounter Details Date Type Department Care Team (Late st Contact Info) Description 01/20/2023 Procedure Pass [facility] Radiology [address] [place] [address] Social History Tobacco Use Types Packs/Day Years [...] 7:14 PM EDT Serge Barrera, RN * [place] Suicide Severity Rating Scale (Screener/Recent Self-Report) Question [...] Description 08/30/2025 8:20 AM EST Office Visit [facility] Pulmonary, Allergy and Critical Care Medicine [address] [place] [address] Dana Campo MD [address] [address] documented as of this encounter Visit Diagnoses [...] documented as of this encounter Care Teams Engraver Pantograph Relationship Specialty Start Date End Date Melissa Castrejon PA [address] [place] [address] PCP - General Unknown Provider Specialty 06/01/22 Ethan Ty PA [address] [place] [address] PCP - General Physician Cissp 04/13/24 01/07/25 Rosita Noble NP [address] [place] [address] PCP - General Nurse Practitioner 01/08/25 Jane Rabago MBBS [address] [place] [address] [email or web address] Primary Oncologist Medical Oncology 02/25/25 documented as of this encounter Additional Source Comments The information contained in this document represents components of the legal health record. It is not the complete legal health record.[facility]
--- OUTSIDE RECORDS SUMMARY | 2025-03-24 14:39 | XMS_ITS | Encounter Summary ---
Author Organization [facility] Address [address] [facility] [address] [place] [address] Phone Care Team Providers Care Chemical Research Worker Name Role Phone Melissa Castrejon Primary Care Provider [phone] Ethan Ty Primary Care Provider [phone] Rosita Noble NP Primary Care Provider [phone] Jane Rabago Unavailable [phone] Encounter Details Date Type Department Care Team (Late st Contact Info) Description 03/23/2023 Transcribe Orders [facility] Neurology [address] [place] [address] Monae Magana [address] [place] [address] [email or web address] Social History Tobacco Use Types Packs/Day Years [...] with a working camera? Not on file 05 / Comments No Sex and Gender Information Value [...] Pulmonary, Allergy and Critical Care Medicine 10 [facility] [place] [address] Dana Campo MD [address] [facility] 2nd [place] [address] [email or web address] documented as of this encounter Visit Diagnoses [...] 1:23 AM EDT CoV-Risk 07/27/2024 08/08/2024 08/19/2024 1:2 1 AM EST documented as of this encounter Care Teams Chemical Research Worker Relationship Specialty Start Date End Date Melissa Castrejon PA [address] [place] [address] [email or web address] PCP - General Unknown Provider Specialty 06/01/22 Ethan Ty PA [address] [place] [address] PCP - General Physician Human Resources Recruiter 04/13/24 01/07/25 Rosita Noble NP [address] [place] [address] PCP - General Nurse Practitioner 01/08/25 Jane Rabago MBBS [address] [place] [address] [email or web address] Primary Oncologist Medical Oncology 02/25/25 documented as of this encounter Additional Source Comments The information contained in this document represents components of the legal health record. It is not the complete legal health record.[facility]
--- OUTSIDE RECORDS SUMMARY | 2025-03-24 14:39 | XMS_ITS | Encounter Summary ---
Author Organization [facility] Address [address] [facility] [address] [place] [address] Phone Care Team Providers Care Planer Setter Name Role Phone Melissa Castrejon Primary Care Provider Ethan Ty Primary Care Provider [phone] Rosita Noble NP Primary Care Provider [phone] Jane Rabago Unavailable [phone] Encounter Details Date Type Department Care Team (Late st Contact Info) Description 01/14/2023 Procedure Pass [facility], Ct Scan - [address] [address] Social History Tobacco Use Types Packs/Day Years [...] Answer Date of Assessment Author High Risk 01/15/2023 9:18 PM EDT Karina Wall RN * [place] Suicide Severity Rating Scale (Screener/Recent Self-Report) Question Answer Date of Assessment Author 1. Wish to be (Past 1 Month) Yes 023 9:18 PM EDT Karina Wall RN 2. Non-Specific Active Suici hernandez Thoughts (Past 1 Month) Yes 01/15/2023 9:18 PM EDT Dian Wall ra, RN 3. Active Suicidal Ideation with any Methods (Not Plan) Without Intent to Act (Past 1 Month) Yes 01/15/2023 9:18 PM EDT Karina Wall RN 4. Active Suicidal Ideation with Some Intent to Act, Without Specific Plan (Past 1 Month) Yes 01/15/2023 9:18 PM EDT Karina Wall RN 5. Active Suicidal Ideation with Specific Plan and Intent (Past 1 Month) No 01/15/2023 9:18 PM EDT Karina Wall RN 6. Suicidal Behavior (Lifetime) No 9:18 PM EDT Karina Wall RN documented as of this encounter Plan of Treatment Upcoming Encounters Date Type Department Care Team (Late st Contact Info) Description 08/30/2025 8:20 AM EST Office Visit [facility] Pulmonary, Allergy and Critical Care Medicine [address] [place] [address] Dana Campo MD [address] [place] [address] documented as of this encounter Visit Diagnoses [...] documented as of this encounter Care Teams Planer Setter Relationship Specialty Start Date End Date Melissa Castreojn PA [address] [place] [address] [email or web address] PCP - General Unknown Provider Specialty 06/01/22 Ethan Ty PA [address] [place] [address] PCP - General Physician It Support Specialist 04/13/24 01/07/25 Rosita Noble NP [address] [place] [address] PCP - General Nurse Practitioner 01/08/25 Jane Rabago MBBS [address] [place] [address] [email or web address] Primary Oncologist Medical Oncology 02/25/25 documented as of this encounter Additional Source Comments The information contained in this document represents components of the legal health record. It is not the complete legal health record.[facility]
--- OUTSIDE RECORDS SUMMARY | 2025-03-24 14:39 | XMS_ITS | Encounter Summary ---
Author Organization [facility] Address [address] [place] [address] Phone Care Team Providers Care Hand Welt Butter Name Role Phone Rosita Noble NP Primary Care Provider [phone] Jane Rabago Unavailable [phone] Encounter Details Date Type Department Care Team (Late st Contact Info) Description 03/03/2025 Ancillary Orders [facility] General Surgical Care [address] [place] [address] Ethan Mcdermott, CAR HIKER [address] [facility], 2nd [place] [address] [email or web address] Post-operative state (Primary Dx); S/P lumpectomy, right breast Social History Tobacco Use Types Packs/Day Years [...] as food, clothing, or medical care? No 02/17/2025 In the past 12 months have y ou been in a relationship with a person who hurts, threatens, or tries to control you? No 02/17/2025 Are you denied basic needs s uch as food, clothing, or medical care? No 02/17/2025 In the past 12 months have y ou been in a relationship with a person who hurts, threatens, or tries to control you? No 02/17/2025 Comments No Sex and Gender Information Value [...] [facility] Pulmonary, Allergy and Critical Care Medicine [address] [place] [address] [place] [address] Dana Campo MD [address] [address] [phone] (work) [email or web address] documented as of this encounter Results * US Chest Wall (03/03/2025 1:52 PM EDT) Anatomical Region Laterality Modality Chest Ultrasound 03/03/2025 2:04 PM EDT Impressions 03/03/2025 2:09 PM EDT Lumpectomy site evident measuring 4.2 x 4.7 x 5.4 cm. Findings may represent hematoma and/or complicated seroma. No discrete drainable collection. Narrative 03/03/2025 2:09 PM EDT US CHEST WALL Referring clinician's provided indication for this examination in [facility]: Infection; New skin dimpling/indentation; post lumpectomy with redness, swelling and pain Lobectomy 02/03/2025. Right breast/chest wall erythema and mild warmth. Tenderness. Question abscess. TECHNIQUE: Ultrasound of the chest wall. COMPARISON: Pre-op ultrasound 08/25/2024 and 01/25/2025. FINDINGS: Targeted ultrasound was performed of the area of clinical concern along the right anterolateral chest wall at 8:00, 12 cm from the nipple shows lumpectomy cavity with complex echotexture. Areas of cystic change mixed with more solid component that is smoothly marginated and most consistent with hematoma and/or seroma that measures 4.2 x 4.7 x 5.4 cm. Mild marginal hypervascularity. No central flow. No discrete drainable collection identified. No visible mass. Procedure Note Freddy Srinivasan MD - 03/03/2025 US CHEST WALL Referring clinician's provided indication for this examination in [facility]:Infection; New skin dimpling/indentation; post lumpectomy with redness,swelling and pain Lobectomy 02/03/2025. Right breast/chest wall erythema and mild warmth.Tenderness. Question abscess. TECHNIQUE: Ultrasound of the chest wall. COMPARISON: Pre-op ultrasound 08/25/2024 and 01/25/2025. FINDINGS: Targeted ultrasound was performed of the area of clinical concern alongthe right anterolateral chest wall at 8:00, 12 cm from the nipple showslumpectomy cavity with complex echotexture. Areas of cystic change mixedwith more solid component that is smoothly marginated and most consistentwith hematoma and/or seroma that measures 4.2 x 4.7 x 5.4 cm. Mildmarginal hypervascularity. No central flow. No discrete drainable collection identified. No visible mass. IMPRESSION: Lumpectomy site evident measuring 4.2 x 4.7 x 5.4 cm. Findings mayrepresent hematoma and/or complicated seroma. No discrete drainablecollection. us Ethan Mcdermott CAR HIKER IMG US CHEST Final Result documented in this encounter Visit Diagnoses Diagnosis S/P lumpectomy, right breast Post-operative state- Primary Other postprocedural status S/P lumpectomy, right breast documented in this encounter Care Teams Hand Welt Butter Relationship Specialty Start Date End Date Rosita Noble NP [address] [place] [address] PCP - General Nurse Practitioner 01/08/25 Jane Rabago MBBS [address] [place] [address] [email or web address] Primary Oncologist Medical Oncology 02/25/25 documented as of this encounter Additional Source Comments The information contained in this document represents components of the legal health record. It is not the complete legal health record.[facility]
--- OUTSIDE RECORDS SUMMARY | 2025-03-24 14:40 | XMS_ITS | Encounter Summary ---
Author Organization [facility] Address [address] [facility] [address] [place] [address] Phone Care Team Providers Care Dragsaw Operator Name Role Phone Lynn Abad MD Primary Care Provider Nellie Morales SIZE MIXER Primary Care Provider [phone] Unknown, Unknown Primary Care Provider Melissa Ordonez Primary Care Provider Ethan Ty Primary Care Provider [phone] Rosita Noble SIZE MIXER Primary Care Provider Jane RabagoBS Unavailable Reason for Visit * Reason Comments Medication Refill Encounter Details Date Type Department Care Team (Late st Contact Info) Description 07/06/2021 Refill [facility] [address] [place] [address] Nando Morris MD 30 [place] [address] Medication Refill Social History Tobacco Use Types [...] Pulmonary, Allergy and Critical Care Medicine [address] [facility] [place] [address] Dana Campo MD [address] [place] [address] [email or web address] documented as of this encounter Visit Diagnoses Not on filedocumented in this encounter Additional Health Concerns Infection Onset Date Last Indicated Resolved Time CoV-Risk 02/19/2022 02/19/2022 03/02/2022 1:22 AM EDT CoV-Exposed 08/31/2022 08/31/2022 09/05/2022 1:47 AM EST CoV-Risk Comment:Cov exposed 09/01/2022 09/02/2022 09/04/2022 6:[address] CoV-Risk 09/18/2022 09/18/2022 09/18/2022 11:3 3 AM EST COVID-19 09/18/2022 09/18/2022 10/09/2022 1:2 2 AM EDT CoV-Risk 01/14/2023 01/14/2023 01/25/2023 1:21 AM EDT CoV-Risk Comment:Neg covid 11/14/2023 11/14/2023 11/14/2023 2:43 PM E DT CoV-Risk Comment:Neg covid 11/18/2023 11/18/2023 11/19/2023 9:58 AM E DT CoV-Risk Comment:2 neg covid 01/30/2024 01/30/2024 02/04/2024 9:47 AM E DT CoV-Risk 02/17/2024 02/17/2024 02/28/2024 1:23 AM EDT CoV-Risk 07/27/2024 08/08/2024 08/19/2024 1:21 AM EST documented as of this encounter Care Teams Dragsaw Operator Relationship Specialty Start Date End Date Lynn Abad MD PCP - General 05/09/17 09/05/21 Nellie Morales, SIZE MIXER PCP - General Family Medicine 09/06/21 02/07/22 Unknown, Unknown, PCP - General 02/08/22 05/31/22 Melissa Castrejon PA [address] [place] [address] [email or web address] PCP - General Unknown Provider Specialty 06/01/22 Ethan Ty PA [address] [place] [address] PCP - General Physician X Ray Equipment Servicer 04/13/24 01/07/25 Rosita Noble NP [address] [place] [address] PCP - General Nurse Practitioner 01/08/25 Jane Rabago MBBS [address] [place] [address] [email or web address] Primary Oncologist Medical Oncology 02/25/25 documented as of this encounter Additional Source Comments The information contained in this document represents components of the legal health record. It is not the complete legal health record.[facility]
--- OUTSIDE RECORDS SUMMARY | 2025-03-24 14:40 | XMS_ITS | Encounter Summary ---
Author Organization [facility] Address [address] [facility] [address] [place] [address] Phone Care Team Providers Care Mems Process Engineer Name Role Phone Lynn Abad MD Primary Care Provider Nellie Morales CREATIVE INTERN Primary Care Provider Unknown, Unknown Primary Care Provider Melissa Ordonez Primary Care Provider Ethan Ty Primary Care Provider Rosita Noble CREATIVE INTERN Primary Care Provider Jane Rabago Unavailable Encounter Details Date Type Department Care Team (Latest Contact Info) Description 02/02/2019 Transcribe Orders Virtual Department 30 [place] [address] Betsy Maya PA-C [address] [place] [address] [email or web address] Dysphagia, pharyngoesophageal phase (Primary Dx) Social History Tobacco Use Types [...] [facility] Pulmonary, Allergy and Critical Care Medicine [address] [place] [address] [place] [address] Dana Campo MD [address] [place] [address] [place] [address] [email or web address] documented as of this encounter Results * FL BARIUM SWALLOW ESOPHAGRAM SINGLE CONTRAST (02/27/2019 9:46 AM EDT) Anatomical Region Laterality Modality Chest Radiographic Barbara ging 02/27/2019 9:52 AM EDT Impressions 02/27/2019 9:58 AM EDT Essentially unremarkable study when allowing for minimal tongue base overflow, without significant hypopharyngeal or esophageal dysmotility or gross mucosal pathology. Minimal grade 1 C3-4 spondylolisthesis. FLUOROSCOPY TIME: 1 min. 25 sec; 88 IMAGES/FRAMES POS - [id number] Narrative 02/27/2019 9:58 AM EDT COMPARISON: None FINDINGS: A preliminary lateral view of the neck reveals a 2 mm retrolisthesis of the C3 in relation to C4 vertebral bodies. No ventral osteophytes present. Due to patient apprehension a single contrast study only was performed and recorded on digital rapid sequence, spot, and overhead views. There is slightly suboptimal tongue base control with over flow prior to initiation of swallow but once swallow was triggered no aspiration, nasopharyngeal reflux, or cricopharyngeal achalasia were apparent. No abnormal pulsatile waveforms were demonstrated in the thoracic esophagus. No hiatal hernia was elicited during a prone Valsalva maneuver. No spontaneous gastroesophageal reflux, fixed stricture, or gross mucosal ulcerations were apparent. Procedure Note Dipak Ivey MD - 02/27/2019 COMPARISON: None FINDINGS: A preliminary lateral view of the neck reveals a 2 mm retrolisthesis ofthe C3 in relation to C4 vertebral bodies. No ventral osteophytespresent. Due to patient apprehension a single contrast study only was performed andrecorded on digital rapid sequence, spot, and overhead views. There is slightly suboptimal tongue base control with over flow prior toinitiation of swallow but once swallow was triggered no aspiration,nasopharyngeal reflux, or cricopharyngeal achalasia were apparent. Noabnormal pulsatile waveforms were demonstrated in the thoracic esophagus.No hiatal hernia was elicited during a prone Valsalva maneuver. Nospontaneous gastroesophageal reflux, fixed stricture, or gross mucosalulcerations were apparent. IMPRESSION: Essentially unremarkable study when allowing for minimal tongue baseoverflow, without significant hypopharyngeal or esophageal dysmotility orgross mucosal pathology. Minimal grade 1 C3-4 spondylolisthesis. FLUOROSCOPY TIME: 1 min. 25 sec; 88 IMAGES/FRAMES POS - [id number] Betsy Maya PA-C [employer] [place] MISC Final Result documented in this encounter Visit Diagnoses Diagnosis Dysphagia, pharyngoesophageal phase- Primary Dysphagia, pharyngoesophageal phase documented in this encounter Additional Health Concerns [...] documented as of this encounter Care Teams Mems Process Engineer Relationship Specialty Start Date End Date Lynn Abad MD [email or web address] PCP - General 05/09/17 09/05/21 Nellie Morales CREATIVE INTERN PCP - General Family Medicine 09/06/21 02/07/22 Unknown, Nilson, PCP - General 02/08/22 05/31/22 Melissa Castrejon PA [address] [place] [address] [email or web address] PCP - General Unknown Provider Specialty 06/01/22 Ethan Ty PA [address] [place] [address] PCP - General Physician Floor Sweeper 04/13/24 01/07/25 Rosita Noble NP [address] [place] [address] PCP - General Nurse Practitioner 01/08/25 Jane Rabago MBBS [address] [place] [address] [email or web address] Primary Oncologist Medical Oncology 02/25/25 documented as of this encounter Additional Source Comments The information contained in this document represents components of the legal health record. It is not the complete legal health record.[facility]
--- OUTSIDE RECORDS SUMMARY | 2025-03-24 14:40 | XMS_ITS | Encounter Summary ---
Author Organization [facility] Address [address] [facility] [address] [place] [address] Phone Care Team Providers Care Manager Health Name Role Phone Nellie Morales EYEGLASS ASSEMBLER Primary Care Provider Unknown, Unknown Primary Care Provider Melissa Ordonez Primary Care Provider Ethan Ty Primary Care Provider [phone] Rosita Noble EYEGLASS ASSEMBLER Primary Care Provider [phone] Jane Rabgao Unavailable [phone] Encounter Details Date Type Department Care Team (Late st Contact Info) Description 10/19/2021 Ancillary Orders [facility],Outside Imaging [address] [place], [place] [id number] System, Provider Not In, [place] [address] Social History Tobacco Use Types Packs/Day Years [...] 5:34 PM EDT Eloisa Franklin RN * [place] Suicide Severity Rating Scale (Screener/Recent Self-Report) Question [...] [facility] Pulmonary, Allergy and Critical Care Medicine [address] [place] [address] Dana Campo MD [address] [place] [address] documented as of this encounter Results * Mammogram Outside (No Interpretation) (06/02/2015 12:00 AM EST) Narrative SYSTEMGENERATED, DOCUMENTATION - 10/19/2021 11:56 AM EDT This study is for PACS storage [...] documented as of this encounter Care Teams Manager Health Relationship Specialty Start Date End Date Nellie Morales NP PCP - General Family Medicine 09/06/21 02/07/22 Unknown, Unknown, PCP - General 02/08/22 05/31/22 Melissa Castrejon PA [address] [place] [address] [email or web address] PCP - General Unknown Provider Specialty 06/01/22 Ethan Ty PA [address] [place] [address] PCP - General Physician Furniture Finisher Apprentice 04/13/24 01/07/25 Rosita Noble NP [address] [place] [address] PCP - General Nurse Practitioner 01/08/25 Jane Rabago MBBS [address] [place] [address] [email or web address] Primary Oncologist Medical Oncology 02/25/25 documented as of this encounter Additional Source Comments The information contained in this document represents components of the legal health record. It is not the complete legal health record.[facility]
--- OUTSIDE RECORDS SUMMARY | 2025-03-24 14:40 | XMS_ITS | Encounter Summary ---
Author Organization [facility] Address [address] [facility] [address] [place] [address] Phone Care Team Providers Care Architectural Design Lecturer Name Role Phone Lynn Abad MD Primary Care Provider Nellie Morales BARROW WORKER HELPER Primary Care Provider [phone] Unknown, Unknown Primary Care Provider Melissa Ordonez Primary Care Provider [phone] Ethan Ty Primary Care Provider [phone] Rosita Noble BARROW WORKER HELPER Primary Care Provider Jane Rabago MBBS Unavailable Encounter Details Date Type Department Care Team (Latest Contact Info) Description 03/19/2019 Transcribe Orders Virtual Department 30 [place] [address] Lynn Abad MD [address] [place] [address] [email or web address] Dyspnea, unspecified type (Primary Dx) Social History Tobacco Use Types [...] Description 08/30/2025 8:20 AM EST Office Visit [facility] Pulmonary, Allergy and Critical Care Medicine [address] [place] [address] Dana Campo MD [address] [place] [address] [email or web address] documented as of this encounter Results * Pulmonary Function Test Reason for Exam: Dyspnea/Shortness of Breath; Type of PFT Test: Spirometry with bronchodilator, Lung Volumes, DLCO; Performing Location: [facility] (06/15/2019 2:22 PM EST) FEV1 1.69 liters FVC 2.13 liters FEV1/FVC 79 % TLC 3.53 liters DLCO 19.4 ml/mmHg sec Anatomical Region Laterality Modality Other Impressions 06/15/2019 2:22 PM EST PULMONARY FUNCTION STUDIES Full pulmonary function studies were performed on this 49 y.o. year-old female for evaluation of dyspnea. Review of the medical record reveals that the patient is a never smoker. Prior pulmonary function studies are not available for comparison. SPIROMETRY: The FEV1 is mildly impaired at 1.69 L or 71% predicted. The FVC is moderately impaired at 2.13 L or 68% predicted. The FEV1/FVC ratio is normal at 79%. After the administration of a bronchodilator agent, there is no significant change. FLOW-VOLUME LOOPS: Evaluation of the flow-volume loops reveals normal morphology of both the inspiratory and expiratory limbs with no significant difference when comparing the tracings performed pre- and post-bronchodilator. That being said, there is some variability between tracings suggestive of patient's difficulty with instructions and ability to perform testing according to established standards. LUNG VOLUME MEASUREMENTS BY NITROGEN WASHOUT: The total lung capacity is mildly impaired at 3.53 L or 7% predicted. The functional residual capacity is mildly impaired at 1.40 L or 79% predicted. Of note, the ERV is markedly impaired at 3% predicted, likely representing the imprint of body habitus. DIFFUSION CAPACITY: The diffusion capacity is mildly impaired at 19.4 mL/mmHg sec or 72% predicted. Resting oxygen saturation is 97% on room air. IMPRESSION: Mildly abnormal pulmonary function studies as evidenced primarily by a mild restrictive ventilatory defect associated with a proportional mild impairment in diffusion capacity which, in the context of a markedly impaired ERV at 3% predicted and elevated BMI at 44, is suggestive of extrapulmonary restriction and the imprint of body habitus. Spirometry reveals no evidence of airflow limitation. us Lynn Abad MD PFT ORDERABLES Final Result documented in this encounter Visit Diagnoses Diagnosis Dyspnea, unspecified type- Primary Dyspnea, unspecified type documented in this encounter Additional Health Concerns [...] documented as of this encounter Care Teams Architectural Design Lecturer Relationship Specialty Start Date End Date Lynn Abad MD PCP - General 05/09/17 09/05/21 Nellie Morales BARROW WORKER HELPER PCP - General Family Medicine 09/06/21 02/07/22 Unknown, Nilson, PCP - General 02/08/22 05/31/22 Melissa Castrejon PA [address] [place] [address] [email or web address] PCP - General Unknown Provider Specialty 06/01/22 Ethan Ty PA [address] [place] [address] PCP - General Physician An/Ssn 2 4 Operator 04/13/24 01/07/25 Rosita Noble NP [address] [place] [address] PCP - General Nurse Practitioner 01/08/25 Jane Rabago MBBS [address] [place] [address] [email or web address] Primary Oncologist Medical Oncology 02/25/25 documented as of this encounter Additional Source Comments The information contained in this document represents components of the legal health record. It is not the complete legal health record.[facility]
--- OUTSIDE RECORDS SUMMARY | 2025-03-24 14:40 | XMS_ITS | Encounter Summary ---
Author Organization [facility] Address [address] [place] [address] Phone Care Team Providers Care Claim Manager Name Role Phone Ethan Ty Primary Care Provider [phone] Rosita Noble NP Primary Care Provider [phone] Jane Rabago Unavailable [phone] Encounter Details Date Type Department Care Team (Latest Contact Info) Description 05/13/2024 Transcribe Orders [facility] [address] [place], [place] [id number] Betsy Maya PA-C [address] [place] [address] [email or web address] Anemia, unspecified type (Primary Dx); Gastroesophageal reflux disease, unspecified whether esophagitis present; Constipation, unspecified constipation type; Fatigue, unspecified type Social History Tobacco Use Types Packs/Day Years [...] with a working camera? Not on file Intimate Partner Violence Answer Date R ecorded Are you denied basic needs s uch as food, clothing, or medical care? No 03/10/2024 In the past 12 months have y ou been in a relationship with a person who hurts, threatens, or tries to control you? No 03/10/2024 Are you denied basic needs s uch as food, clothing, or medical care? No 03/10/2024 In the past 12 months have y ou been in a relationship with a person who hurts, threatens, or tries to control you? No 03/10/2024 Comments No Sex and Gender Information Value [...] CD Pulmonary, Allergy and Critical Care Medicine [address] [place] [id number] Dana Campo MD [address] [place] [id number] [email or web address] documented as of this encounter Results * Vitamin B12 (05/13/2024 2:39 PM EDT) VITAMIN B12 598 232 - 1,245 pg/mL [facility] Blood 05/13/2024 2:39 PM EDT 05/13/2024 2:43 PM EDT us Betsy Maya PA-C LAB BLOOD ORDERABLES Final Resu lt [facility] [address] [place] [address] * Ferritin (05/13/2024 2:39 PM EDT) FERRITIN 44 13 - 150 ug/L [facility] Blood 05/13/2024 2:39 PM EDT 05/13/2024 2:43 PM EDT us Betsy Maya PA-C LAB BLOOD ORDERABLES Final Resu lt Performing Organization Address [facility]/ZIP Co de Phone Number [address] [address] * Folate (05/13/2024 2:39 PM EDT) Pathologist [facility] FOLIC ACID 15.9 4.2 - 19.9 ng/mL [facility] Blood 05/13/2024 2:39 PM EDT 05/13/2024 2:43 PM EDT us Betsy Maya PA-C LAB BLOOD ORDERABLES Final Resu lt Performing Organization Address [facility]/ZIP Co de Phone Number [address] [address] * TSH (05/13/2024 2:39 PM EDT) TSH 1.68 0.27 - 4.20 uIU/mL [facility] Blood 05/13/2024 2:39 PM EDT 05/13/2024 2:43 PM EDT us Betsy Maya PA-C LAB BLOOD ORDERABLES Final Resu lt Performing Organization Address [facility] Co de Phone Number [address] [address] * Lipase (05/13/2024 2:39 PM EDT) LIPASE 17 16 - 63 U/L [facility] Blood 05/13/2024 2:39 PM EDT 05/13/2024 2:43 PM EDT Betsy Maya PA-C LAB BLOOD ORDERABLES Final Resu lt [address] [address] * (ABNORMAL) Comprehensive metabolic panel (05/13/2024 2:39 PM EDT) SODIUM 139 133 - 146 mmol/L [facility] POTASSIUM 3.8 3.3 - 5.1 mmol/L [facility] CHLORIDE 101 96 - 108 mmol/L [facility] CO2 25 21 - 35 mmol/L [facility] BUN 9 6 - 19 mg/dL [facility] CREATININE 0.50 0.5 - 1.5 mg/dL [facility] GLUCOSE 108(H) 70 - 99 mg/dL [facility] ALBUMIN 4.1 3.9 - 4.8 g/dL [facility] TOTAL PROTEIN 7.5 6.5 - 8.0 g/dL [facility] CALCIUM 8.9 8.4 - 10.3 mg/dL [facility] ALKALINE PHOSPHATASE 100 39 - 117 U/L [facility] TOTAL BILIRUBIN <0.2 0.0 - 1.2 mg/dL [facility] AST 17 0 - 37 U/L [facility] ALT 9 0 - 40 U/L [facility] GLOBULIN 3.4 1 - 4.8 g/dL [facility] EGFR 113 >59 mL/min/1.7 3m2 [facility] Comment:Estimated glomerular filtration rate calculated using the CKD-EPI refit equation. ANION GAP 17 10 - 20 mmol/L [facility] Blood 05/13/2024 2:39 PM EDT 05/13/2024 2:43 PM EDT us Betsy Maya PA-C LAB BLOOD ORDERABLES Final Resu lt [address] [address] * (ABNORMAL) CBC (05/13/2024 2:39 PM EDT) WBC 7.14 4.00 - 11.00 K/uL [facility] RBC 4.77 4.00 - 5.20 M/uL [facility] HGB 12.4 12.0 - 16.0 g/dL [facility] HCT 39.5 36.0 - 46.0 % [facility] PLT 303 150 - 450 K/uL [facility] MCV 82.8 80.0 - 100.0 fL [facility] MCH 26.0(L) 27.0 - 31.0 pg [facility] MCHC 31.4(L) 32.0 - 36.0 g/dL [facility] RDW 15.8(H) 11.5 - 14.5 % [facility] MPV 9.1 8.4 - 12.0 fl [facility] NRBC 0.00 0.00 /100 WBCs [facility] ABSOLUTE NRBC 0.00 0.00 K/uL [facility] Blood 05/13/2024 2:39 PM EDT 05/13/2024 2:43 PM EDT us Betsy Maya PA-C LAB BLOOD ORDERABLES Final Resu lt [facility] [address] [place] [address] * Tissue transglutaminase IgA (05/13/2024 2:39 PM EDT) TTG IGA ANTIBODY <1.2 <4.0 (Negative) U/mL [facility] Blood 05/13/2024 2:39 PM EDT 05/13/2024 2:42 PM EDT Betsy Maya PA-C LAB BLOOD ORDERABLES Final Resu lt [facility] [address] [place] [address] documented in this encounter Visit Diagnoses Diagnosis Anemia, unspecified type- Primary Gastroesophageal reflux disease, unspecified whether esophagitis present Constipation, unspecified constipation type Fatigue, unspecified type documented in this encounter Additional Health Concerns Infection Onset Date Last Indicated Resolved Time CoV-Risk 07/27/2024 08/08/2024 08/19/2024 1:21 AM EST documented as of this encounter Care Teams Claim Manager Relationship Specialty Start Date End Date Ethan Ty PA [address] [place] [id number] PCP - General Physician Sign Installer 04/13/24 01/07/25 Rosita Noble NP [address] [place] [address] PCP - General Nurse Practitioner 01/08/25 Jane Rabago MBBS [address] [place] [phone] [email or web address] Primary Oncologist Medical Oncology 02/25/25 documented as of this encounter Additional Source Comments The information contained in this document represents components of the legal health record. It is not the complete legal health record.[facility]
--- OUTSIDE RECORDS SUMMARY | 2025-03-24 14:40 | XMS_ITS | Clinical Summary ---
Author Organization Located Within [facility] Address [address] [place] [address] Phone Care Team Providers Care Flight Test Data Acquisition Technician Name Role Phone Rosita Noble NP Primary Care Provider [phone] Jane Rabago MBBLANK Unavailable [phone] Allergies Active Allergy Reactions Criticality Noted Date Comments Apple Nausea and/or Vomiting Low 02/05/2019 Amoxicillin-Pot Clavulanate Hives Medium 02/20/2019 Diphenhydramine Hcl Rash Low 05/18/2022 Alcona And Derivatives GI Upset Low 12/06/2018 Other reaction(s): because of acid reflux Diazepam Anxiety Medium 09/15/2002 Naproxen Nausea and/or Vomiting Medium 07/30/2017 Sulfa (Sulfonamide Antibiotics) Rash Medium 05/18/2022 Tomato GI Upset Low 09/03/2017 Medications * This document contains information received from the source organization and may not represent a complete record from that organization. lactase (LACTAID) 3,000 unit tablet Take 6,000 Units by mouth 3 (three) times a day as needed. When dairy is consumed. Not to exceed 4 tablets in 24 hours. Active cholecalciferol (VITAMIN D3) 1,000 unit tablet Take 1,000 Units by mouth daily. Active cetirizine (ZYRTEC) 10 MG tablet Take 10 mg by mouth every morning. Active carboxymethylcell ulose (REFRESH PLUS) 0.5 % Dpet Place 1 drop into each eye 4 (four) times a day. Active pantoprazole (PROTONIX) 40 MG tablet Take 40 mg by mouth 2 (two) times a day. Active traZODone (DESYREL) 100 MG tablet Take 2 tablets (200 mg total) by mouth nightly at bedtime. 60 tablet 021 Active ondansetron (ZOFRAN-ODT) 4 MG disintegrating tablet Take 4 mg by mouth every 8 (eight) hours as needed for nausea. Active Medication-Free Text CPAP Active calcium carbonate 500 mg (200 mg elemental) chewable tablet Take 2 tablets (1,000 mg total) by mouth every 4 (four) hours as needed for heartburn. 023 Active DAILY-RIGO, WITH FOLIC ACID, 400 mcg tablet 023 Active docusate sodium (COLACE) 100 MG capsule Take 2 capsules (200 mg total) by mouth daily. 30 capsule 023 Active prazosin (MINIPRESS) 5 MG capsule Take 7 mg by mouth nightly at bedtime. Active FEROSUL 325 mg (65 mg iron) tablet 023 Active latanoprost (XALATAN) 0.005 % ophthalmic solution 023 Active gabapentin (NEURONTIN) 400 MG capsule Take 400 mg by mouth 3 (three) times a day. 023 Active cyclobenzaprine (FEXMID) 7.5 MG tablet Take 1 tablet (7.5 mg total) by mouth nightly at bedtime. 30 tablet 1 024 Active hydrOXYzine (VISTARIL) 100 MG capsule Take 1 capsule (100 mg total) by mouth nightly at bedtime. May also take 1 capsule (100 mg total) 3 (three) times a day as needed (restlessness). 120 capsule 1 024 Active famotidine (PEPCID) 40 MG tablet Take 1 tablet (40 mg total) by mouth 2 (two) times a day. 60 tablet 024 Active dicyclomine (BENTYL) 10 MG capsule Take 10 mg by mouth 4 (four) times a day as needed. Active JANUVIA 100 mg tablet Take 100 mg by mouth daily. 024 Active albuterol 90 mcg/actuation inhaler Inhale 2 puffs into the lungs every 6 (six) hours as needed for wheezing. 180mcg 18 g 11 024 Active budesonide-formot elly 160-4.5 mcg/actuation inhalerIndication s:Moderate persistent asthma without complication Inhale 2 puffs into the lungs 2 (two) times a day. 10.2 g 11 024 Active umeclidinium (INCRUSE ELLIPTA) 62.5 mcg/actuation inhalationIndicat ions:Moderate persistent asthma without complication Inhale 62.5 mcg (1 puff total) into the lungs daily. 30 each 5 024 Active metFORMIN (GLUCOPHAGE-XR) 500 MG 24 hr tablet Take 1,000 mg by mouth daily with breakfast. Active fluticasone propionate (FLONASE) 50 mcg/actuation nasal spray 2 sprays by Nasal route 2 (two) times a day. Active carBAMazepine (TEGRETOL XR) 200 MG 12 hr tablet Take 3 tablets (600 mg total) by mouth every morning AND 1 tablet (200 mg total) Every Afternoon AND 3 tablets (600 mg total) nightly at bedtime. 210 tablet Active LORazepam (ATIVAN) 0.5 MG tablet Take 1 tablet (0.5 mg total) by mouth daily as needed (panic attack). 15 tablet Active lidocaine 4 % Place 2 patches onto the skin every morning. Can only be on 12 hrs at a time. One patch for back and one for right breast. 30 patch 1 Active acetaminophen (TYLENOL) 325 mg tablet Take 2 tablets (650 mg total) by mouth every 4 (four) hours as needed for pain (specific location in comments). 025 Active ammonium lactate (AMLACTIN) 12 % cream Apply topically daily. 285 g 025 Active QUEtiapine (SEROQUEL) 300 MG tablet Take 1 tablet (300 mg total) by mouth nightly at bedtime. 30 tablet 025 Active QUEtiapine (SEROQUEL) 50 MG tablet Take 1 tablet (50 mg total) by mouth 3 (three) times a day as needed (anxiety). 90 tablet 025 Active lactobacillus rhamnosus, GG, (CULTURELLE) 10 billion cell capsule Take 1 capsule by mouth daily. 30 capsule 025 Active ipratropium-albut Elly (DUONEB) 0.5-3 mg (2.5 mg base)/3 mL nebulizer solutionIndicatio ns:Moderate persistent asthma without complication USE 3 ML VIA NEBULIZER TWICE DAILY NEEDED FOR WHEEZING 810 mL 3 025 Active methyl salicylate-mentho l 15-10 % Crea Apply topically nightly at bedtime. 57 g 1 024 2024 Discontinued(S top Taking at Discharge) nebulizer accessories MiscIndications:M oderate persistent asthma without complication NEBULIZER TUBING. Use as directed; change tubing every 14 days. 2 each 024 2024 Discontinued(S top Taking at Discharge) ammonium lactate (AMLACTIN) 12 % cream Apply topically daily. Every morning quarter size 2024 Discontinued(S top Taking at Discharge) ipratropium-albut Elly (DUONEB) 0.5-3 mg (2.5 mg base)/3 mL nebulizer solutionIndicatio ns:Moderate persistent asthma without complication Take 3 mL by nebulization 2 (two) times a day as needed for wheezing. 810 mL 3 024 2024 Discontinued QUEtiapine (SEROQUEL) 200 MG tablet Take 1 tablet (200 mg total) by mouth nightly at bedtime. 30 tablet 025 2024 Discontinued(S top Taking at Discharge) QUEtiapine (SEROQUEL) 50 MG tablet Take 0.5 tablets (25 mg total) by mouth 3 (three) times a day as needed (anxiety). 025 2024 Discontinued(S top Taking at Discharge) oxyCODONE 5 MG immediate release tablet Take 1 tablet (5 mg total) by mouth every 4 (four) hours as needed for pain (specific location in comments). Partial fill ok 8 tablet 025 2024 Discontinued(S top Taking at Discharge) doxycycline hyclate (VIBRAMYCIN) 100 MG capsule Take 1 capsule (100 mg total) by mouth every 12 (twelve) hours for 1 dose. 1 capsule 025 08/13/ 2025 clindamycin (CLEOCIN) 300 MG capsule Take 1 capsule (300 mg total) by mouth 3 (three) times a day for 10 days. 30 capsule 025 2024 Active Problems Patient Care Coordination No te Formatting of this note migh t be different from the original. Height 157.7 cm, no shoes. BP Left Arm Only Problem Noted Date Diagnosed Date Atypical lobular hyperplasia of right breast Suicidal ideation 02/17/2025 [place] 02/06/2025 GERD (gastroesophageal reflux disease) Severe episode of recurrent major depressive disorder, without psychotic features 12/11/2024 Bipolar affective disorder 10/09/2024 Type 2 diabetes mellitus wit hout complication, with long-term current use of insulin 04/13/2024 Assessment & Plan (04/13/2024 12:51 PM EDT): Patient recently started on insulin (10 units nightly). -Continue current management. - Expect blood sugars to be higher on prednisone, but will only be for 5 days. Trauma and stressor-related disorder 02/10/2024 Dyspnea on minimal exertion 02/08/2024 Assessment & Plan (02/09/2024 3:40 PM EDT): - her dyspnea has significantly improved after getting lasix - Pro BNP very low, however patient has BMI of 45, which can falsely lower BNP - TTE can be considered tomorrow, but I suspect she has some degree of heart failure clinically. - continue low dose lasix, I don't think she needs to continue as an outpatient, but this could depend on the TTE. - I have advised the patient weigh her self daily in the mornings around the same time. If she gains weight then we can administer additional lasix. Bipolar disorder (manic depression) 02/01/2024 Assessment & Plan (02/08/2024 2:30 PM EDT): Defer to psychiatry Borderline personality disorder 11/14/2023 Assessment & Plan (08/06/2024 4:30 PM EST): Per psychiatry Bipolar disorder, unspecified 11/13/2023 Assessment & Plan (04/13/2024 12:49 PM EDT): Recent hospitalization for suicidal ideations. Patient states she has not had trouble with prednisone in the past with her psychiatric disease. Hoarseness 04/19/2023 Assessment & Plan (04/19/2023 1:07 PM EDT): The dry powder inhalers especially Wixela/Advair and air duo do cause hoarseness. We will try to switch it up to Dulera with a spacer device. Depression 01/14/2023 Mental health problem 10/29/2022 COVID-19 09/21/2022 Anxiety 08/24/2022 Bipolar affective disorder, remission status uns pecified 07/24/2022 Bipolar disorder 07/24/2022 Recurrent pneumonia 05/18/2022 Assessment & Plan (04/13/2024 12:47 PM EDT): Recent hospitalization for recurrent pneumonia. Patient reports feeling like there's something in her lungs and difficulty breathing. -Order chest x-ray in one month (May 13, 2024) to ensure pneumonia has resolved. Assessment & Plan (04/19/2023 1:07 PM EDT): HIV and immunoglobulin tests were all normal. Assessment & Plan (05/18/2022 12:57 PM EDT): Will check immunoglobulins and HIV test. Patient is agreeable. Anemia 09/20/2021 Assessment & Plan (09/21/2021 9:46 AM EST): Serial H&H monitoring shows gradually downward trend over months. anemia present since at least 2018. hgb 9 today without intervention, was 9.6 march Patient reports history of prior transfusions. Per yesterday's consult note, pt reported blood in stool. FIT test done last pm is negative and reassuring that she is not having an acute bleeding event. Ferritin is 12, Fe 44, B12 305, iron saturation 14 Blood in prior urinalysis, longstanding history going back to at least 2018, recommend outpatient follow-up and outpatient repeat UA - will also need follow-up with fish and wildlife scientific aid, borderline elevated tissue transglutaminase antibody in the past -Given that her B12 is borderline low, I will supplement orally -Recommend follow-up CBC again tomorrow to ensure stability and then weekly. I will add a folate level and reticulocyte count to tomorrow's CBC, if any of these are of concern, please reconsult medicine Recurrent falls 09/20/2021 Assessment & Plan (09/21/2021 9:48 AM EST): EKG shows no change from previous per frontend engineer -Check orthostatic vital signs x1 -PT evaluation recommended -Ambulate with walker for stability and safety. Elbow pain, right 09/20/2021 Assessment & Plan (09/21/2021 9:49 AM EST): X ray showed no or acute pathology -analgesia -Avoid strenuous lifting with the right arm -PT as above Major depression, recurrent 09/08/2021 Assessment & Plan (09/21/2021 8:51 AM EST): Defer to psychiatry Mood disorder 04/11/2021 Severe recurrent major depre ssion without psychotic features 01/18/2021 Carbamazepine poisoning, acc idental or unintentional, initial encounter 01/08/2021 Pseudoseizures 01/06/2021 Assessment & Plan (09/21/2021 8:50 AM EST): History of seizures/pseudoseizures with Tegretol level supratherapeutic on arrival. This has been decreased by the psychiatric team. -Now on decreased Tegretol 400 mg in the morning and 600 mg at night, decreased from 600 mg twice daily with prior Tegretol level greater than 12. Defer to pharmacy/psychiatry when repeat level should be collected. F/u with neurologist Assessment & Plan (01/08/2021 3:52 PM EDT): She has been followed by Dr. Bray for nonepileptic seizures. Note from 07/25/2020 reviewed at which time plan was for psychiatry to manage carbamazepine and no planned neurology follow-up --As above Carbamazepine toxicity, acci dental or unintentional, initial encounter 04/06/2020 Assessment & Plan (04/06/2020 9:18 PM EDT): Symptomatic after recent increase as an inpt Hold carbamazepine, follow levels Consult psych for suggested regimen to prevent worsening of BH condition Bipolar disorder with depression 01/05/2020 Assessment & Plan (01/08/2021 3:52 PM EDT): She has an extensive psychiatric history with prior behavioral health hospitalizations and in process of changing to Dr. Morris for psychiatric care. Admitted with carbamazepine toxicity which is resolving Psychiatry follow-up appreciated --She will start carbamazepine 600 mg twice daily and eliminate midday dose. Has follow-up with Dr. Morris at [facility] this Saturday Moderate persistent asthma without complication 09/01/2019 Assessment & Plan (04/13/2024 12:46 PM EDT): Increased symptoms following recent pneumonia. Dulera not providing sufficient relief. Hoarseness noted. -Discontinue Dulera. -Start Symbicort (dose not specified in conversation). -Continue Incruse. -Start Prednisone 20mg for 5 days. -Continue nebulizer use twice daily. -Advise patient to rinse mouth after inhaler use. Assessment & Plan (02/09/2024 2:29 PM EDT): - continue prednisone taper, 40mg x 2d, 20mg, 10mg, 5mg and stop - discontinue levofloxacin, procalcitonin is very low unlikely to have significant LRTI - continue mometasone - formoterol - continue umeclinidium Assessment & Plan (04/19/2023 1:07 PM EDT): Continue Incruse. We will try Dulera. Albuterol as needed. Assessment & Plan (05/18/2022 12:57 PM EDT): Continue with Advair and Incruse. Assessment & Plan (09/21/2021 8:50 AM EST): Continued on home medical regimen with albuterol inhaler, DuoNeb nebulizers, Advair/Spiriva inhaler, daily cetirizine and hydroxyzine TID. Assessment & Plan (01/07/2021 5:30 PM EDT): No acute issues --Continue inhalers as scheduled Assessment & Plan (12/09/2019 10:54 AM EDT): Recommend changing to Symbicort. Discontinue Qvar. Continue with the Spiriva at the asthma dose. Patient may benefit from a nebulizer machine. I have ordered a prescription and written for DuoNeb twice daily as needed. Assessment & Plan (09/01/2019 1:05 PM EST): Suspect asthma. Will start Qvar and asthma dose of Spiriva. If the Spiriva is not helpful at this low dose I would be willing to try the higher dose she had in the hospital. Would hold on starting Qvar until the patient's dizziness is resolved, just not to confound the issue. IRINA on CPAP 09/01/2019 Assessment & Plan (04/13/2024 12:50 PM EDT): Cont IRINA Assessment & Plan (02/08/2024 2:28 PM EDT): Continue nightly CPAP use Assessment & Plan (04/19/2023 1:07 PM EDT): Continue CPAP. Assessment & Plan (05/18/2022 12:57 PM EDT): Continue CPAP Assessment & Plan (01/06/2021 7:27 PM EDT): Continue CPAP Consult respiratory for home settings Assessment & Plan (04/06/2020 11:01 PM EDT): Home CPAP ordered Assessment & Plan (12/09/2019 10:54 AM EDT): Continue with CPAP. May have tracheobronchomalacia and BiPAP might be better. Symptoms are improved so will not pursue bronchoscopy or CAT scan at this time. Assessment & Plan (09/01/2019 1:06 PM EST): Encouraged continued CPAP compliance as it is likely to be helping any tracheomalacia. Will consider insp and exp CT vs. Bronchoscopy in the future. Resolved Problems Problem Noted Date Diagnosed Date Resolved Date Suicidal ideation 12/11/2024 12/30/2024 Suicidal ideation 08/03/2024 10/21/2024 Assessment & Plan (08/06/2024 4:30 PM EST): Per psychiatry Suicidal ideation 02/25/2024 07/29/2024 Suicidal ideation 02/02/2024 02/10/2024 Suicidal ideation 01/16/2023 11/22/2023 Mood disorder 11/13/2018 11/26/2018 Bipolar depression 08/18/2018 9 Encounters * This document contains information received from the source organization and may not represent a complete record from that organization. Date Type Department Care Team Description 03/23/2025 Telephone [facility] Pulmonary, Allergy and Critical Care Medicine [address] [place] [address] Corina Brizuela 90 day supply form- Iprat/Alb 0.5 03/19/2025 11:00 AM EDT Office Visit [facility] at [address] [address] Jane Rabago MBBS Atypical lobular hyperplasia of right breast (Primary Dx) 03/12/2025 Telephone [facility] Pul[facility], Allergy and Critical Care Medicine [address] [place] [address] Corina Brizuela Ipratropium-Albuter ol CoverMyMeds 03/11/2025 10:15 AM EDT Office Visit [facility] [address] [place] [address] Stacy Garcia MD S/P lumpectomy, right breast (Primary Dx) 03/10/2025 Refill [facility] Pulmonary, Allergy and Critical Care Medicine [address] [place] [address] Aakash Willis MD, MS Medication Refill 03/10/2025 Telephone [facility] BREAST [address] [address] Ambreen Messer, RN Post-op Problem 03/10/[address] [address] Ambreen Messer, RN Follow-up 03/10/2025 Refill [facility] Neurology [address], 6th Floor, [address] [place] [address] Ritesh Allen MD Medication Refill 03/09/2025 3:42 PM EDT - 03/09/2025 8:26 PM EDT Emergency [facility] Emergency [address] [place] [address] Discharge Disposition: Home or Self Care 03/08/2025 9:07 PM EDT - 03/09/2025 5:05 AM EDT Emergency [facility] Emergency [address] [place] [address] Discharge Disposition: Home or Self Care 03/08/2025 Procedure Pass [facility], Ct Scan - [address] [address] 03/04/[address] [address] Ambreen Messer, RON 03/03/2025 12:36 PM EDT - 03/03/2025 11:59 PM EDT Hospital Encounter [facility], [address] [address] Ethan Mcdermott CNP Discharge Disposition: Home or Self Care 03/03/2025 10:45 AM EDT Office Visit [facility] [address] [place] [address] [place] [address] Ethan Mcdermott CNP Post-operative state (Primary Dx); S/P lumpectomy, right breast 03/03/2025 Ancillary Orders [facility] [address] [place] [address] Ethan Mcdermott CNP Post-operative state (Primary Dx); S/P lumpectomy, right breast 03/02/2025 Telephone [facility] BREAST CENTER [address] [place] [address] Ambreen Messer, RN Post-op 03/01/[address] [address] Ambreen Messer, RN antibiotic question 03/01/2025 Telephone [facility] [address] [place] [address] Stacy Garcia MD 02/26/2025 Documentation [facility] BREAST [address] [address] Ambreen Messer, RON 02/24/2025 Telephone [facility] [address] [place] [address] Ambreen Messer, RON 02/24/2025 Telephone [facility] [address] [place] [address] Ambreen Messer, RON 02/24/2025 Telephone [facility] [address] [place] [address] Stacy Garcia MD Post-op Problem 02/16/[address] [address] Ambreen Messer, RN Appointment 02/12/2025 Telephone [facility] at [address] [address] Jane Rabago MBBS NEW MEDICAL ONCOLOGY APT 02/10/2025 Orders Only [facility] BREAST [address] [address] Stacy Garcia MD Atypical lobular hyperplasia (ALH) of breast (Primary Dx) 02/10/2025 Refill [facility] Pediatric Neurology [address] [place] [address], 6th Floor, [address] [place] [address] Ritesh Allen MD Medication Refill 02/05/2025 7:58 PM EDT - 02/06/2025 3:10 PM EDT Emergency [facility] Emergency [address] [place] [address] Jen Solis MD Morse, Peter, MD Steinberg, Benjamin G, MD Discharge Disposition: [facility] 02/04/2025 Telephone [facility] BREAST CENTER [address] [place] [address] Ambreen Messer RN Post-op 02/04/2025 Telephone [facility] Pulmonary, Allergy and Critical Care Medicine [address] [facility] [place] [address] Dana Campo MD [facility] 02/03/2025 2:06 PM EDT - 02/03/2025 3:29 PM EDT Surgery OR Admitting Dept - Virtual Department [address] [place] [address] Stacy Garcia MD IMAGE GUIDED LUMPECTOMY BREAST WITH RADIOACTIVE SEED LOCALIZATION 02/03/2025 1:20 PM EDT Anesthesia Event OR Admitting Dept - Virtual Department [address] [place] [address] Preet Hawley MD 02/03/2025 11:31 AM EDT - 02/03/2025 3:57 PM EDT Hospital Encounter OR Admitting Dept - Virtual Department [address] [place] [address] Stacy Garcia MD Discharge Disposition: Home or Self Care 02/03/2025 Orders Only [facility] [address] [place] [address] Stacy Garcia MD 02/03/2025 Procedure Pass OR Admitting Dept - Virtual Department [address] [place] [address] 02/02/2025 8:00 AM EDT Pre-Admission Testing Pre Procedure Evaluation [address] [place] [address] Stacy Garcia MD 01/25/2025 9:42 AM EDT - 01/25/2025 11:59 PM EDT Hospital Encounter [facility], [facility] [address] [place] [address] Stacy Garcia MD Discharge Disposition: Home or Self Care 01/25/2025 9:00 AM EDT - 01/25/2025 9:41 AM EDT Hospital Encounter [facility], [facility] - [address] [address] Stacy Garcia MD Discharge Disposition: Home or Self Care 01/25/2025 Ancillary Orders [address] [address] Stacy Garcia MD Abnormal imaging of central nervous system (Primary Dx) 01/20/[address] [address] Ambreen Messer RN surgery question 01/18/2025 12:24 AM EDT - 01/18/2025 2:22 PM EDT Emergency [facility] Emergency [address] [place] [address] Eran Pool DO Perez, Alberto Juan Ignacio, MD Discharge Disposition: Home or Self Care 01/13/2025 Refill [facility] Pediatric Neurology [address] [place] [address], 6th Floor, [address] [place] [address] Ritesh Allen MD Medication Refill 01/08/2025 11:00 AM EDT Office Visit [facility] [address] [place] [address] Dick Michel PA-C Sprain of anterior talofibular ligament of left ankle, subsequent encounter (Primary Dx) from Last 3 Months Immunizations Immunization Administration Dates Next Due COVID-19 (Pre-05/13) Moderna Vaccine, mRNA, PF 12/04/2021 COVID-19 (Pre-05/13) Pfizer Vaccine, Bivalent 12+ 05/02/2022 COVID-19 (Pre-05/13) Pfizer Vaccine, mRNA, PF 04/23/2023,07/05/2021,10/11/2020,09/20 Hepatitis B Adult 10/22/2013,08/27/2013 INFLUENZA, SPLIT VIRUS, TRIVALENT PF 03/27/2024, 04/10/2013 INFLUENZA, SPLIT VIRUS, TRIV ALENT W/ PRESERVATIVE IM 08/02/2021,03/27/2021,05/30/2020,04/16,04/07/2018,03/11/2017,03/30/2016 ,04/08/2014,04/10/2013 Influenza Quadrivalent Intranasal 04/21/2015 Influenza Quadrivalent MDCK Preservative Free IM 05/02/2022 Influenza Quadrivalent Prese rvative Free IM 04/15/2023,08/02/2021,04/24/2021,04/24(),05/30/2020,04/07/2020,07/31/19,04/16/2019,04/07/2018,03/11/2017,,04/08/2014 Influenza Quadrivalent w/ Pr eservative IM 03/27/2021 Influenza quadrivalent nasal 04/21/2015 Pneumococcal polysaccharide PPSV23 06/29/2020, Tdap 07/30/2021,08/13/2013 Tetanus toxoid, unspecified formulation 07/31/2021 Zoster recombinant 05/13/2023,03/30/2022 Family History Medical History Relation Comments Alcohol abuse Father Alcohol abuse Mother Relation Status Comments Father Mother Social History Tobacco Use Types Packs/Day Years Used Date Smoking Tobacco: Never Passive Smoke Exposure: Never Smokeless Tobacco: Never Tobacco Cessation:Counseling Given: No Comments:second hand smoke in building Alcohol Use Standard Drinks/Week Comments No [...] Orientation Straight 07/29/2017 9: 44 AM EST Last Filed Vital Signs Vital Sign Reading Time Taken Comments Blood Pressure 124/86 03/19/2025 11:13 AM EDT Pulse 93 03/19/2025 11:13 AM EDT Temperature 36.8 C (98.2 F) 03/19/2025 11:10 AM EDT Respiratory Rate 21 03/09/2025 8:15 PM EDT Oxygen Saturation 97% 03/19/2025 11:13 AM EDT Inhaled Oxygen Concentration - - Weight 109.8 kg (242 lb) 03/19/2025 11:03 AM EDT Height 157.7 cm (5' 2.09 ) 03/19/2025 11:03 AM E DT Body Mass Index 44.14 03/19/2025 11:03 AM EDT Plan of Treatment Upcoming Encounters Date Type Department Care Team (Late st Contact Info) Description 08/30/2025 8:20 AM EST Office Visit [facility] Pul[facility], Allergy and Critical Care Medicine 10 [facility] [address] [place] [address] Dana Campo MD 10 [facility] 2nd floor [place] [address] [email or web address] Health Maintenance Due Date Last Done Comments DEPRESSION SCREENING 1983 HEPATITIS C SCREENING 1989 COLOGUARD 2016 FOBT 2016 SIGMOIDOSCOPY 2016 VIRTUAL COLONOSCOPY 2016 PAP SMEAR 06/20/2020 06/20/2017, 07/08/1996 PNEUMOCOCCAL VACCINES (50+ years) (2 of 2 - PCV) 06/29/2021 06/29/2020, 12/19/2018 FIT TEST 09/20/2022 09/20/2021 DIABETIC EYE EXAM 07/22/2024 URINE MICROALBUMIN/CREATININE RATIO 07/22/2024 INFLUENZA VACCINE (#1) 2025 , 04/15/2023, 05/02/2022, Additional history exists HEMOGLOBIN A1C 06/14/2025 12/12/2024, 09/20, 07/22/2024, Additional history exists BLOOD PRESSURE 09/18/2025 03/19/2025 LIPID PANEL 12/12/2025 12/12/2024, 09/20, 08/05/2024, Additional history exists CARBAMAZEPINE (TEGRETOL) LEVEL 02/19/2026 02/19/2025, 01/18/2025, 12/27/2024, Additional history exists CREATININE LEVEL 03/09/2026 03/09/2025, , 02/17/2025, Additional history exists MAMMOGRAM 07/10/2026 07/10/2024, 07/02/2022, 12/19/2016, Additional history exists Adult Td,Tdap Booster 07/30/2031 07/30/2021, 014 COLONOSCOPY 06/01/2032 06/01/2022 COLORECTAL CANCER SCREENING 06/01/2032 HIV ONE-TIME SCREENING (18-65 YEARS) Completed 05/18/2022, 02/28/1999 ZOSTER VACCINES Completed 05/13/2023, 03/30/2022 COVID-19 VACCINE Completed 04/15/2024, 09/2022, 04/23/2023, Additional history exists SMOKING STATUS SCREENING (Once After 26 Yrs) Completed 03/11/2025 HEPATITIS A VACCINES Aged Out No long er eligible based on patient's age to complete this topic HIB VACCINES Aged Out No longer eligi ble based on patient's age to complete this topic MENINGOCOCCAL VACCINES (ACWY) Aged Out No longer eligible based on patient's age to complete this topic MENINGOCOCCAL VACCINES (B) Aged Out N o longer eligible based on patient's age to complete this topic Medical Devices Implanted Type Area Charhouse Worker Device Identifier Shelf Expiration Date Model / Serial / Lot Marker Ultraclip 17ga 10cm Tissue Dual Trigger Breast Ti Heart Shape Bx/5ea - [id number] Implanted:Qty: 1 on 09/28/2024 by Luke Rogers MD at [facility] Right: Breast [employer] [id number] / / Procedures Procedure Name Priority Date/Time Associated Diagnosis Comments TROPONIN STAT 03/09/2025 2:41 PM EDT ECG 12-LEAD STAT 03/09/2025 1:42 PM EDT NT-PROBNP Routine 03/09/2025 1:42 PM EDT TROPONIN STAT 03/09/2025 1:42 PM EDT BASIC METABOLIC PANEL STAT 03/09/2025 1:42 PM EDT CBC AND DIFFERENTIAL STAT 03/09/2025 1:[address] CHEST PULMONARY ANGIOGRAM (ACUTE) Routine 03/08/2025 11:54 PM EDT TROPONIN STAT 03/08/2025 10:42 PM EDT MAGNESIUM STAT 03/08/2025 9:42 PM EDT D-DIMER STAT 03/08/2025 9:42 PM EDT TROPONIN STAT 03/08/2025 9:42 PM EDT BASIC METABOLIC PANEL STAT 03/08/2025 9:42 PM EDT CBC AND DIFFERENTIAL STAT 03/08/2025 9:42 PM EDT ECG 12-LEAD STAT 03/08/2025 9:02 PM EDT US CHEST WALL Urgent/patient waiting 03/03/2025 1:52 PM EDT S/P lumpectomy, right breast POCT GLUCOSE Routine 03/02/2025 6:06 AM EDT POCT GLUCOSE Routine 03/01/2025 6:16 AM EDT POCT GLUCOSE Routine 02/28/2025 7:02 AM EDT POCT GLUCOSE Routine 02/27/2025 6:05 AM EDT POCT GLUCOSE Routine 02/26/2025 6:46 AM EDT POCT GLUCOSE Routine 02/25/2025 6:55 PM EDT POCT GLUCOSE Routine 02/25/2025 6:45 AM EDT POCT GLUCOSE Routine 02/24/2025 6:50 AM EDT POCT GLUCOSE Routine 02/23/2025 7:51 AM EDT POCT GLUCOSE Routine 02/22/2025 6:46 AM EDT POCT GLUCOSE Routine 02/21/2025 8:35 PM EDT XR RIBS 3 OR MORE VIEWS WITH PA CHEST (LEFT) Routine 02/21/2025 10:36 AM EDT POCT GLUCOSE Routine 02/21/2025 6:39 AM EDT POCT GLUCOSE Routine 02/20/2025 7:02 AM EDT POCT GLUCOSE Routine 02/19/2025 7:13 PM EDT CARBAMAZEPINE (TEGRETOL) LEVEL Timed 02/19/2025 7:06 AM EDT POCT GLUCOSE Routine 02/18/2025 6:33 AM EDT POCT GLUCOSE Routine 02/17/2025 8:53 PM EDT SALICYLATES STAT 02/17/2025 12:38 PM EDT ACETAMINOPHEN LEVEL STAT 02/17/2025 1 2:38 PM EDT HCG, SERUM QUALITATIVE STAT 02/17/2025 12:38 PM EDT ETHANOL, BLOOD STAT 02/17/2025 12:38 PM EDT LFTS (HEPATIC PANEL) STAT 02/17/2025 12:38 PM EDT BASIC METABOLIC PANEL STAT 02/17/2025 12:38 PM EDT CBC AND DIFFERENTIAL STAT 02/17/2025 12:38 PM EDT URINALYSIS W/REFLEX URINE CULTURE STAT 02/17/2025 12:06 PM EDT TOXICOLOGY SCREEN, URINE STAT 02/17/2025 12:06 PM EDT HCG, SERUM QUALITATIVE STAT 02/05/2025 8:21 PM EDT ETHANOL, BLOOD STAT 02/05/2025 8:21 PM EDT LFTS (HEPATIC PANEL) STAT 02/05/2025 8:21 PM EDT BASIC METABOLIC PANEL STAT 02/05/2025 8:21 PM EDT CBC AND DIFFERENTIAL STAT 02/05/2025 8:21 PM EDT TOXICOLOGY SCREEN, URINE STAT 02/05/2025 7:59 PM EDT BI MAMMOGRAM BREAST SPECIMEN POST SURGICAL BIOPSY NO TOMOSYNTHESIS NO CAD (RIGHT) STAT 02/03/2025 2:14 PM EDT AIRWAY PLACEMENT Routine 02/03/2025 1:39 PM EDT OH EXCISE BREAST CYST 02/03/2025 1:30 PM EDT Abnormal imaging of central nervous system POCT GLUCOSE Routine 02/03/2025 12:04 PM EDT ANATOMIC PATHOLOGY Routine 02/03/2025 12 :00 AM EDT BI MAMMOGRAM DIAGNOSTIC POST PROCEDURE NO TOMOSYNTHESIS NO CAD (RIGHT) Routine 01/25/2025 10:06 AM EDT Abnormal imaging of central nervous system BI SHELTER BREAST NEEDLE LOCALIZATION (RIGHT) Routine 01/25/2025 10:02 AM EDT Abnormal imaging of central nervous system POCT GLUCOSE Routine 01/18/2025 6:47 AM EDT TOXICOLOGY SCREEN, URINE STAT 01/18/2025 2:15 AM EDT TROPONIN STAT 01/18/2025 1:47 AM EDT ECG 12-LEAD STAT 01/18/2025 1:08 AM EDT TROPONIN STAT 01/18/2025 12:47 AM EDT CARBAMAZEPINE (TEGRETOL) LEVEL STAT 01/18/2025 12:47 AM EDT SALICYLATES STAT 01/18/2025 12:47 AM EDT ACETAMINOPHEN LEVEL STAT 01/18/2025 1 2:47 AM EDT HCG, SERUM QUALITATIVE STAT 01/18/2025 12:47 AM EDT ETHANOL, BLOOD STAT 01/18/2025 12:47 AM EDT LFTS (HEPATIC PANEL) STAT 01/18/2025 12:47 AM EDT BASIC METABOLIC PANEL STAT 01/18/2025 12:47 AM EDT CBC AND DIFFERENTIAL STAT 01/18/2025 12:47 AM EDT POCT GLUCOSE Routine 12/30/2024 6:40 AM EDT POCT GLUCOSE Routine 12/29/2024 4:34 PM EDT POCT GLUCOSE Routine 12/29/2024 6:35 AM EDT POCT GLUCOSE Routine 12/28/2024 4:18 PM EDT POCT GLUCOSE Routine 12/28/2024 7:13 AM EDT POCT GLUCOSE Routine 12/27/2024 5:00 PM EDT CARBAMAZEPINE (TEGRETOL) LEVEL Timed 12/27/2024 8:13 AM EDT POCT GLUCOSE Routine 12/27/2024 6:58 AM EDT POCT GLUCOSE Routine 12/26/2024 4:40 PM EDT POCT GLUCOSE Routine 12/26/2024 6:50 AM EDT POCT GLUCOSE Routine 12/25/2024 4:28 PM EDT POCT GLUCOSE Routine 12/25/2024 6:43 AM EDT POCT GLUCOSE Routine 12/24/2024 4:41 PM EDT POCT GLUCOSE Routine 12/24/2024 6:28 AM EDT POCT GLUCOSE Routine 12/23/2024 4:30 PM EDT POCT GLUCOSE Routine 12/23/2024 6:14 AM EDT POCT GLUCOSE Routine 12/22/2024 4:35 PM EDT POCT GLUCOSE Routine 12/22/2024 6:52 AM EDT HEMOGLOBIN A1C Routine 12/12/2024 7:04 AM EDT LIPID PANEL Routine 12/12/2024 7:04 AM EDT BI MAMMOGRAM OUTSIDE (NO INTERPRETATION) Routine 07/10/2024 12:00 AM EST ENDOSCOPY, COLON 06/01/2022 11:4 8 AM EST HC BLOOD OCCULT FECAL HGB DETER IA QUAL FECES 1-3 Routine 09/20/2021 7:30 PM EST PAP TEST Routine 06/20/2017 12:00 AM EST from Last 3 Months or Most Recently Relevant to Health Maintenance Results * Troponin (03/09/2025 2:41 PM EDT) Only the most recent of6 resultswithin the time period is included. Troponin-T, HS Gen5 <6 0 - 9 ng/L [facility] Blood 03/09/2025 2:41 PM EDT 03/09/2025 2:51 PM EDT Mati Benz MD LAB BLOOD ORDERABLES Final Resu lt Performing Organization Address City/[facility]/ZIP Co de Phone Number [facility] [address] [place] [address] * ECG 12-LEAD (03/09/2025 1:42 PM EDT) Only the most recent of3 resultswithin the time period is included. Ventricular Rate EKG/MIN 77 BPM [facility] Atrial Rate 77 BPM [facility] OH Interval 202 ms [facility] QRS Duration 92 ms [facility] QT Interval 390 ms [facility] QTC Interval 441 ms [facility] P [place] 35 degrees [facility] R Wave [place] -25 degrees [facility] T Wave [place] 24 degrees [facility] 03/09/2025 1:42 PM EDT 03/11/2025 11:45 AM EDT Narrative [facility] - 03/11/2025 11:45 AM EDT Normal sinus rhythm Anterior infarct (cited on or before 12-Oct-2024) Abnormal ECG When compared with ECG of 08-Mar-2025 21:02, No significant change was found Confirmed by Marvin Rodriguez ([id number]) on 03/11/2025 11:45:29 AM us Mati Benz MD ECG ORDERABLES Final Result Performing Organization Address City/[facility] Co de Phone Number [email or web address] * (ABNORMAL) CBC and differential (03/09/2025 1:42 PM EDT) Only the most recent of5 resultswithin the time period is included. WBC 10.18 4.00 - 11.00 K/uL [facility] RBC 4.55 4.00 - 5.20 M/uL [facility] HGB 12.6 12.0 - 16.0 g/dL [facility] HCT 39.7 36.0 - 46.0 % [facility] PLT 300 150 - 450 K/uL [facility] MCV 87.3 80.0 - 100.0 fL [facility] MCH 27.7 27.0 - 31.0 pg [facility] MCHC 31.7(L) 32.0 - 36.0 g/dL [facility] RDW 13.7 11.5 - 14.5 % [facility] MPV 8.9 8.4 - 12.0 fL [facility] NRBC 0.00 0.00 /100 WBCs [facility] ABSOLUTE NRBC 0.00 0.00 K/uL [facility] DIFF METHOD Auto [facility] NEUTS 69.2 48.0 - 76.0 % [facility] LYMPHS 20.6 18.0 - 41.0 % [facility] MONOS 6.3 4.0 - 11.0 % [facility] EOS 2.1 0.0 - 5.0 % [facility] BASOS 0.4 0.0 - 1.5 % [facility] Granulocytes, immature (%) 1.4(H) 0.0 - 0.9 % [facility] ABSOLUTE NEUTS 7.05 1.92 - 7.60 K/uL [facility] ABSOLUTE LYMPHS 2.10 0.72 - 4.10 K/uL [facility] ABSOLUTE MONOS 0.64 0.16 - 1.10 K/uL [facility] ABSOLUTE EOS 0.21 0.00 - 0.50 K/uL [facility] ABSOLUTE BASOS 0.04 0.00 - 0.15 K/uL [facility] Granulocytes, immature 0.14(H) 0.00 - 0.09 K/uL [facility] Blood 03/09/2025 1:42 PM EDT 03/09/2025 1:47 PM EDT us Mati Benz MD LAB BLOOD ORDERABLES Final Resu lt [facility] [address] [place] [address] * NT-proBNP (03/09/2025 1:42 PM EDT) NT-PROBNP <36 0 - 125 pg/mL [facility] 03/09/2025 1:42 PM EDT 03/09/2025 1:47 PM EDT Mati Benz MD LAB BLOOD ORDERABLES Final Resu lt Performing Organization Address [facility] Co de Phone Number [address] [address] * Basic metabolic panel (03/09/2025 1:42 PM EDT) Only the most recent of5 resultswithin the time period is included. SODIUM 138 133 - 146 mmol/L [facility] CHLORIDE 102 96 - 108 mmol/L [facility] POTASSIUM 3.6 3.3 - 5.1 mmol/L [facility] CO2 26 21 - 35 mmol/L [facility] BUN 12 6 - 19 mg/dL [facility] CREATININE 0.60 0.5 - 1.5 mg/dL [facility] GLUCOSE 91 70 - 99 mg/dL [facility] CALCIUM 8.8 8.4 - 10.3 mg/dL [facility] EGFR 107 >59 mL/min/1.7 3m2 [facility] Comment:Estimated glomerular filtration rate calculated using the CKD-EPI refit equation. ANION GAP 14 10 - 20 mmol/L [facility] Blood 03/09/2025 1:42 PM EDT 03/09/2025 1:47 PM EDT Mati Benz MD LAB BLOOD ORDERABLES Final Resu lt Performing Organization Address [facility] Co de Phone Number [address] [address] * CT CHEST PULMONARY ANGIOGRAM (ACUTE) (03/08/2025 11:54 PM EDT) Anatomical Region Laterality Modality Chest, Thoracic Vasculature Comp uted Tomography 03/09/2025 2:3 0 AM EDT Impressions 03/09/2025 3:03 AM EDT 1. Motion degraded study. Within this limitation, [...] the report originally created by Meg Toribio. Narrative 03/09/2025 3:[address] CHEST PULMONARY ANGIOGRAM (ACUTE) Referring clinician's provided indication for this examination in [facility]: * Chest pain, nonspecific; * Dyspnea on exertion (LOPEZ); * PE suspected, low/intermediate prob, positive D-dimer; + d-dimer TECHNIQUE: Multidetector CT pulmonary angiography was performed after administration of intravenous contrast using tailored dose modulation techniques. 3D angiographic postprocessing techniques were acquired in the form of axial maximum intensity projection images (MIPS). COMPARISON: CT CHEST PULMONARY ANGIOGRAM (ACUTE) FINDINGS: Motion degraded study. Pulmonary Angiogram: Suboptimal evaluation of the segmental and subsegmental pulmonary arteries due to motion artifact. There is no central pulmonary embolus. Devices/Tubes/Lines: None. Lungs: Limited evaluation of the lung parenchyma due to motion [...] the spine. Dextroscoliosis of the thoracic spine. Procedure Note Serge Cunningham, DO - 03/09/2025 CT CHEST PULMONARY ANGIOGRAM (ACUTE) Referring clinician's provided indication for this examination in [facility]: *Chest pain, nonspecific; * Dyspnea on exertion (LOPEZ); * PE suspected,low/intermediate prob, positive D-dimer; + d-dimer TECHNIQUE: Multidetector CT pulmonary angiography was performed afteradministration of intravenous contrast using tailored dose modulationtechniques. 3D angiographic postprocessing techniques were acquired in theform of axial maximum intensity projection images (MIPS). COMPARISON: CT CHEST PULMONARY ANGIOGRAM (ACUTE) FINDINGS: Motion degraded study. Pulmonary Angiogram: Suboptimal evaluation of the segmental and subsegmental pulmonary arteriesdue to motion artifact. There is no central pulmonary embolus. Devices/Tubes/Lines: None. Lungs: Limited evaluation of the lung parenchyma due to motion artifact.Bilateral dependent atelectasis. No large consolidation. The centralairways are clear. Pleura: No pleural effusion or pneumothorax. Mediastinum: No thyroid nodules. Normal heart size. No pericardialeffusion. Lymph Nodes: No enlarged supraclavicular, axillary, mediastinal, or hilarlymph nodes. Upper Abdomen: Mild splenomegaly measuring 15.1 cm in AP diameter. Fattyliver. Chest Wall: Partially imaged 3.6 cm collection in the right breast withoverlying skin thickening, presumably postoperative. Bones: Degenerative changes of the spine. Dextroscoliosis of the thoracicspine. IMPRESSION: 1. Motion degraded study. Within this limitation, no central pulmonaryembolism or other acute abnormality in the chest. 2. Partially imaged collection in the right breast with overlying skinthickening, presumably postoperative etiology related to recentlumpectomy. Continued follow- up per protocol is suggested. ATTESTATION: I, Serge Cunningham as teaching physician, have reviewed theimages for this case and if necessary edited the report originally createdby Meg Toribio. Preet Ng PA-C IM CT CHEST Final Result * (ABNORMAL) D-dimer (03/08/2025 9:42 PM EDT) D-DIMER 539(H) <500 ng/mL FEU [facility] Comment:In patients with low to moderate pre-test probability scores for VTE (PE or DVT), a D-Dimer cut-off less than 500 ng/mL (FEU) has a negative predictive value (NPV) of 97 to 100%. Blood 03/08/2025 9:42 PM EDT 03/08/2025 10:01 PM EDT Preet Ng PA-C LAB BLOOD ORDERABLES Final R esult Performing Organization Address City/[facility]/ZIP Co de Phone Number [address] [address] * Magnesium (03/08/2025 9:42 PM EDT) MAGNESIUM 2.3 1.6 - 2.6 mg/dL [facility] 03/08/2025 9:42 PM EDT 03/08/2025 10:01 PM EDT Mati Benz MD LAB BLOOD ORDERABLES Final Resu lt Performing Organization Address [facility] Co de Phone Number [address] [address] * US Chest Wall (03/03/2025 1:52 PM [...] clinician's provided indication for this examination in Epic:Infection; New skin dimpling/indentation; post lumpectomy with redness,swelling [...] hematoma and/or complicated seroma. No discrete drainablecollection. Ethan Mcdermott EQUIPMENT TECHNICIAN IM US CHEST Final Result * (ABNORMAL) POCT Glucose (03/02/2025 6:06 AM EDT) Only the most recent of35 resultswithin the time period is included. Glucose, POCT 116(H) 70 - 100 mg/dL [facility] 03/02/2025 6:06 AM EDT 03/02/2025 8:05 AM EDT Kelly Mora MD POINT OF CARE TEST ORDERABLES Final Result [facility] [address] [place] [address] * XR RIBS 3 OR MORE VIEWS WITH PA CHEST (LEFT) (02/21/2025 10:36 AM EDT) Anatomical Region Laterality Modality Chest Computed Radiogr aphy 02/21/2025 10:5 6 AM EDT Impressions 02/21/2025 11:00 AM EDT No displaced left-sided rib fracture. Clear lungs. Narrative 02/21/2025 11:00 AM EDT XR RIBS 3 OR MORE VIEWS WITH PA CHEST (LEFT) Referring clinician's provided indication for this examination in [facility]: Pain COMPARISON: XR CHEST PA AND LATERAL 2 VIEWS FINDINGS: No displaced left-sided rib fracture. PA evaluation of the chest demonstrates no focal consolidation, pleural effusion, pulmonary edema, or pneumothorax. Cardiomediastinal silhouette is normal. Thoracic scoliosis and calcific rotator cuff tendinosis in the right shoulder are again seen. Procedure Note Les Guerrero MD - 02/21/2025 XR RIBS 3 OR MORE VIEWS WITH PA CHEST (LEFT) Referring clinician's provided indication for this examination in [facility]:Pain COMPARISON: XR CHEST PA AND LATERAL 2 VIEWS FINDINGS: No displaced left-sided rib fracture. PA evaluation of the chest demonstrates no focal consolidation, pleuraleffusion, pulmonary edema, or pneumothorax. Cardiomediastinal silhouetteis normal. Thoracic scoliosis and calcific rotator cuff tendinosis in theright shoulder are again seen. IMPRESSION: No displaced left-sided rib fracture. Clear lungs. us Ritesh Allen MD IMG XR CHEST Final Resu lt * Carbamazepine (Tegretol) level (02/19/2025 7:06 AM EDT) Only the most recent of3 resultswithin the time period is included. CARBAMAZEPINE 8.7 8.0 - 12.0 ug/mL [facility] Blood 02/19/2025 7:06 AM EDT 02/19/2025 7:22 AM EDT Guido Nesbitt PMHNP- LAB BLOOD ORDERABLES Flory l Result Performing Organization Address [facility] Co de Phone Number [address] [address] * Ethanol, blood (02/17/2025 12:38 PM EDT) Only the most recent of3 resultswithin the time period is included. ETHANOL <10 <10 mg/dL [facility] Blood 02/17/2025 12:3 8 PM EDT 02/17/2025 12:42 PM EDT Joel Mars MD LAB BLOOD ORDERABLES Final Resu lt Performing Organization Address [facility] de Phone Number [address] [address] * HCG, serum qualitative (02/17/2025 12:38 PM EDT) Only the most recent of3 resultswithin the time period is included. HCG, QUALITATIVE Negative Negative IU/L [facility] Blood 02/17/2025 12:3 8 PM EDT 02/17/2025 12:42 PM EDT Joel Mars MD LAB BLOOD ORDERABLES Final Resu lt Performing Organization Address [facility] Co de Phone Number [address] [address] * LFTs (hepatic panel) (02/17/2025 12:38 PM EDT) Only the most recent of3 resultswithin the time period is included. ALKALINE PHOSPHATASE 102 39 - 117 U/L [facility] TOTAL BILIRUBIN <0.2 0.0 - 1.2 mg/dL [facility] DIRECT BILIRUBIN <0.1 0.0 - 0.2 mg/dL [facility] Bilirubin (Indirect) NOT CALCULATED 0 - 1.5 mg/dL [facility] AST 17 0 - 37 U/L [facility] ALT 16 0 - 40 U/L [facility] TOTAL PROTEIN 6.9 6.5 - 8.0 g/dL [facility] ALBUMIN 3.9 3.9 - 4.8 g/dL [facility] GLOBULIN 3.0 1 - 4.8 g/dL [facility] A/G Ratio 1.30 1.00 - 4.80 RATIO [facility] Blood 02/17/2025 12:3 8 PM EDT 02/17/2025 12:42 PM EDT us Joel Mars MD LAB BLOOD ORDERABLES Final Resu lt Performing Organization Address City/[facility]/ZIP Co de Phone Number [address] [address] * (ABNORMAL) Acetaminophen level (02/17/2025 12:38 PM EDT) Only the most recent of2 resultswithin the time period is included. ACETAMINOPHEN <5.0(L) 15.0 - 30.0 ug/mL [facility] Blood 02/17/2025 12:3 8 PM EDT 02/17/2025 12:42 PM EDT us Joel Mars MD LAB BLOOD ORDERABLES Final Resu lt Performing Organization Address City/[facility]/ZIP Co de Phone Number [address] [address] * (ABNORMAL) Salicylates (02/17/2025 12:38 PM EDT) Only the most recent of2 resultswithin the time period is included. SALICYLATES <0.3(L) 2.8 - 19.9 mg/dL [facility] Blood 02/17/2025 12:3 8 PM EDT 02/17/2025 12:42 PM EDT us Joel Mars MD LAB BLOOD ORDERABLES Final Resu lt Performing Organization Address [facility] Co de Phone Number [address] [address] * (ABNORMAL) Urinalysis w/reflex Urine Culture (02/17/2025 12:06 PM EDT) COLOR Yellow Yellow [facility] CLARITY Clear [facility] GLUCOSE Negative Negative [facility] BILI Negative Negative [facility] KETONES Negative Negative [facility] SPECIFIC GRAVITY >1.030 1.005 - 1.030 [facility] BLOOD Negative Negative [facility] PH 5.5 5.0 - 8.0 [facility] Protein-UA Trace(A) Negative [facility] NITRITE Negative Negative [facility] Leukocyte esterase, ur Negative Negative [facility] Urine (Urine) 02/17/2025 12: 06 PM EDT 02/17/2025 1:30 PM EDT Joel Mars MD URINE ORDERABLES Final Result Performing Organization Address [facility] Co de Phone Number [address] [address] * (ABNORMAL) Toxicology screen, urine (02/17/2025 12:06 PM EDT) Only the most recent of3 resultswithin the time period is included. URINE CANNABINOIDS NONE DETECTED NONE DETECTED [facility] Comment:Cutoff: 50 ng/mL URINE COCAINE METAB NONE DETECTED NONE DETECTED [facility] Comment:Cutoff: 300 ng/mL URINE AMPHETAMINES NONE DETECTED NONE DETECTED [facility] Comment:Cutoff: 1000 ng/mL URINE METHADONE NONE DETECTED NONE DETECTED [facility] Comment:Cutoff: 300 ng/mL URINE OPIATES NONE DETECTED NONE DETECTED [facility] Comment:Cutoff: 300 ng/mL URINE PHENCYCLIDINE NONE DETECTED NONE DETECTED [facility] Comment:Cutoff: 25 ng/mL URINE OXYCODONE NONE DETECTED NONE DETECTED [facility] Comment:Cutoff: 300 ng/mL URINE BARBITURATES NONE DETECTED NONE DETECTED [facility] Comment:Cutoff: 200 ng/mL URINE BENZODIAZEPINE Positive(A) NONE DETECTED [facility] Comment:Cutoff: 200 ng/mL URINE BUPRENORPHINE NONE DETECTED NONE DETECTED [facility] Comment:Cutoff: 5 ng/mL Fentanyl, urine NONE DETECTED NONE DETECTED [facility] Comment: Cutoff: 5 ng/mL INTERPRETATION FOR TOXICOLOGY PANEL: These results are unconfirmed and should be used for Medical Treatment purposes only. Urine (Urine) 02/17/2025 12: 06 PM EDT 02/17/2025 12:10 PM EDT us Joel Mars MD URINE ORDERABLES Final Result [facility] [address] [place] [address] * BI MAMMOGRAM BREAST SPECIMEN POST SURGICAL BIOPSY NO TOMOSYNTHESIS NO CAD (RIGHT) (02/03/2025 2:14PM EDT) Anatomical Region Laterality Modality Breast Right, Breast Bilateral Right M ammography 02/03/2025 2:41 PM EDT Impressions 02/03/2025 2:41 PM EDT Specimen imaging as described. Narrative 02/03/2025 2:41 PM EDT BI MAMMOGRAM BREAST SPECIMEN POST SURGICAL BIOPSY NO TOMOSYNTHESIS NO CAD (RIGHT) Additional patient information: COMPARISON: Comparison is made with relevant prior imaging. FINDINGS: The specimen contains the biopsy marker and radiofrequency tag. The specimen appears grossly adequate. Pathology results are pending. Procedure Note Luke Rogers MD - 02/03/2025 BI MAMMOGRAM BREAST SPECIMEN POST SURGICAL BIOPSY NO TOMOSYNTHESIS NO CAD(RIGHT) Additional patient information: COMPARISON: Comparison is made with relevant prior imaging. FINDINGS: The specimen contains the biopsy marker and radiofrequency tag. Thespecimen appears grossly adequate. Pathology results are pending. IMPRESSION: Specimen imaging as described. Stacy Garcia MD IMG BI IRP GUIDED BREAST P EVITA Final Result * ANES ETT DOUBLE LUMEN - AIRWAY LDA (02/03/2025 1:39 PM EDT) Narrative William Rush CRNA - 02/03/2025 1:39 PM EDT William Rush CRNA 02/03/2025 1:54 PM Airway Placement Procedure Note: Patient was not difficult to intubate. Procedure performed by: fellow/resident/JACK SPOOLER TENDER Anesthesiologist: Preet Hawley MD Fellow/Resident/JACK SPOOLER TENDER: William Rush CRNA Airway procedure initiated at:02/03/2025 1:39 PM and ended at. Personal Protective Equipment: Mask: surgical mask Eye Protection: eye shield Gloves: gloves Gown: no gown Mask Ventilation: Quality: not attempted Airway Placement: Technique: video laryngoscopy Rapid sequence induction: yes Details: Blade type: Glidescope Blade size: 3 Video view: grade 1 Video Laryngoscopy was: elective Number of attempts: 1 ETT type: cuffed ETT size: 7.5 ETT depth at teeth: 19 ETT cuff inflation volume: 8 Cuff pressure (cm H2O): MOV. Tube position confirmed by: bilateral breath sounds and EtCO2 Outcomes: Evidence of dental injury? no Complications observed? no us Preet Hawley MD [place] ANESTHESIA Final Re sult * Anatomic Pathology (02/03/2025 12:00 AM EDT) 02/03/2025 02/04/2025 8:2 4 AM EDT Narrative SEE NARRATIVE - 02/08/2025 9:30 [place] [address] Burn Crew Member: Solo Us MD Surgical Pathology Report FINAL PATHOLOGIC DIAGNOSIS: RIGHT BREAST, SEED LOCALIZED LUMPECTOMY: Benign breast tissue with nodular adenosis and previous biopsy related changes. Small focus of atypical lobular hyperplasia. Margins of excision unremarkable. Electronically Signed Out By Estrada Larson MD By his/her signature above, the pathologist listed as making the Final Diagnosis certifies that he/she has personally reviewed this case and confirmed or corrected the diagnosis. CLINICAL HISTORY Abnormal imaging of central nervous system [R90.89] SPECIMENS SUBMITTED: A: RIGHT BREAST, SEED LOCALIZED LUMPECTOMY GROSS DESCRIPTION RIGHT BREAST, SEED LOCALIZED LUMPECTOMY: Received in formalin is a 42 g, 6.4 cm (medial to lateral) x 4.3 cm (superior to inferior) x 3.1 cm (anterior to posterior) portion of fibrofatty breast tissue. There are 2 attached short sutures designated medial, 2 attached long sutures designated lateral, and 1 attached long suture designated superficial. The specimen is inked as follows: red- anterior, black-posterior, blue-superior, green-inferior, yellow-lateral and orange-medial. The tissue is serially sectioned to reveal a 0.9 x 0.8 x 0.7 cm irregular, firm, buchanan-white mass which is present 0.3 cm from the nearest superior margin. A heart shaped biopsy marker clip is identified in the mass with an adjacent radioactive seed. The remainder of the uninvolved parenchyma consists of grossly unremarkable fibroadipose tissue. No other lesions or masses are identified. Recruiting Operations Consultant sections (approximately 40% of specimen submitted) to include the mass in its entirety with nearest margins are submitted as follows: A1-A3: Mass entirely and sequentially submitted from medial to lateral to include nearest anterior, posterior and superior margins. A4: Recruiting Operations Consultant inferior, medial and lateral margins. A5-A10: Additional tissue surrounding mass Tissue removed from patient: 1:57 PM on 02/03/2025 Tissue placed in formalin: 2:20 PM on 02/03/2025 Total fixation time: 27 hours 40 minutes Grossed by: EVELINE Bautista PA([facility]) [id number] 02/05/2025 Grossing Staff: [id number] Patient Name: ARPITA MORA : 1970 (Age: 54) Sex: F [facility] Date of Operation: 02/03/2025 Date of Reported: 02/08/2025 09:30 Results To: Stacy Garcia MD, BA Rosita Noble NP us Stacy Garcia MD PATHOLOGY ORDERABLES Final Result SEE NARRATIVE * BI MAMMOGRAM DIAGNOSTIC POST PROCEDURE NO TOMOSYNTHESIS NO CAD (RIGHT) (01/25/2025 10:06 AM EDT) Anatomical Region Laterality Modality Breast Right, Breast Bilateral Right M ammography 01/25/2025 10:2 3 AM EDT Impressions 01/25/2025 10:27 AM EDT Ultrasound-guided needle localization of the right breast - please see report content for details. Narrative 01/25/2025 10:27 AM EDT BI SHELTER BREAST NEEDLE LOCALIZATION (RIGHT), BI MAMMOGRAM DIAGNOSTIC [...] 9:00 Target: Mass Localizer device: RF Tag ID#[id number] Post procedure mammogram: Localizer device in good position relative to the target. Specimen radiograph: Will be performed separately and dictated separately. The patient was discharged home in stable condition. Procedure Note Lynn Barbosa MD - 01/25/2025 BI SHELTER BREAST NEEDLE LOCALIZATION (RIGHT), BI MAMMOGRAM DIAGNOSTIC [...] 9:00 Target: Mass Localizer device: RF Tag ID#[id number] Post procedure mammogram: Localizer device in good position relative tothe target. Specimen radiograph: Will be performed separately and dictatedseparately. The patient was discharged home in stable condition. IMPRESSION: Ultrasound-guided needle localization of the right breast - please seereport content for details. us Stacy Garcia MD IMG MG EXAMS Final Resu lt * SHELTER Breast Needle Localization (Right) (01/25/2025 10:02 AM EDT) Anatomical Region Laterality Modality Breast Right, Breast Bilateral Right U ltrasound 01/25/2025 10:2 3 AM EDT Impressions 01/25/2025 10:27 AM EDT Ultrasound-guided needle localization of the right breast - please see report content for details. Narrative 01/25/2025 10:27 AM EDT BI SHELTER BREAST NEEDLE LOCALIZATION (RIGHT), BI MAMMOGRAM DIAGNOSTIC [...] 9:00 Target: Mass Localizer device: RF Tag ID#[id number] Post procedure mammogram: Localizer device in good position relative to the target. Specimen radiograph: Will be performed separately and dictated separately. The patient was discharged home in stable condition. Procedure Note Lynn Barbosa MD - 01/25/2025 BI SHELTER BREAST NEEDLE LOCALIZATION (RIGHT), BI MAMMOGRAM DIAGNOSTIC [...] 9:00 Target: Mass Localizer device: RF Tag ID#[id number] Post procedure mammogram: Localizer device in good position relative tothe target. Specimen radiograph: Will be performed separately and dictatedseparately. The patient was discharged home in stable condition. IMPRESSION: Ultrasound-guided needle localization of the right breast - please seereport content for details. us Stacy Garcia MD IMG BI IRP GUIDED BREAST P EVITA Final Result * Hemoglobin A1c (12/12/2024 7:04 AM EDT) HEMOGLOBIN A1C 5.6 4.3 - 5.8 % [facility] Blood 12/12/2024 7:04 AM EDT 12/12/2024 7:15 AM EDT Christa Nino CNP LAB BLOOD ORDERABLES Final Result Performing Organization Address [facility] Co de Phone Number [address] [address] * (ABNORMAL) Lipid panel (12/12/2024 7:04 AM EDT) HDL 34 mg/dL [facility] Comment: Interpretation <40 mg/dL: Low HDL cholesterol (major risk factor for CHD) Greater than or equal to 60 mg/dL: High HDL cholesterol ( negative risk factor for CHD) HDL - cholesterol is affected by a number of factors, e.g. smoking, excerise, hormones, sex and age. CHOLESTEROL 225 0 - 240 mg/dL [facility] TRIGLYCERIDES 279(H) 30 - 160 mg/dL [facility] LDL 135(H) 50 - 129 mg/dL [facility] Comment: LDL levels in terms of risk for coronary heart disease: <100 mg/dL: Optimal 100-129 mg/dL: Near or above optimal 130-159 mg/dL: Borderline high 160-189 mg/dL: High >190 mg/dL: Very High CARDIAC RISK RATIO 6.6(H) 3.3 - 4.4 C [facility] Blood 12/12/2024 7:04 AM EDT 12/12/2024 7:15 AM EDT Christa Nino EQUIPMENT TECHNICIAN LAB BLOOD ORDERABLES Final Result Performing Organization Address City/[facility]/ZIP Co de Phone Number [address] [address] * Mammogram Outside (No Interpretation) (07/10/2024 12:00 AM EST) Narrative Antonieta Pierce - 08/27/2024 9:03 AM EST This study is for PACS storage only and not for interpretation. Procedure Note Antonieta Pierce - 08/27/2024 This study is for PACS storage only and not for interpretation. us Unknown Unknown MD [facility] OUTSIDE IMAGING W/OUT INT ERPRETATION Final Result * ENDOSCOPY, COLON (06/01/2022 11:48 AM EST) Narrative Transcriptions Dipak Andrews MD - 06/01/2022 11:48 AM EST Patient Name: Arpita Merchant Yogi Attending MD:: DIPAK ANDREWS MD Procedure Date: 06/01/2022 11:48AM Date of : 1970 Age: 52 Admit Type: Outpatient Gender: Female Room: [place] [address] Referring MD: Melissa Castrejon Exam Type: Colonoscopy Indications: Surveillance: Personal history of adenomatouspolyps on last colonoscopy > 5 years ago, Lastcolonoscopy: January 2017 Medications: Monitored Anesthesia Care Procedure: Informed consent was obtained from the patientafter discussion of the indications, limitations, alternatives, benefits, and risks of the procedure. Risks specifically discussed include but are not limited to medication reactions, missed lesions, bleeding, perforation, or the need for emergent surgery. Throughout the procedure, the patient's blood pressure, pulse, end-tidal CO2, and oxygensaturations were monitored continuously. The Olympus adult variable colonoscope [id number] #6 was introduced through the anus and advanced to the cecum, identified by the appendiceal orifice, ileocecal valve and palpation. The colonoscopy was somewhat difficult due to the patient's bodyhabitus and the patient's medical instability. Successful completion of the procedure was aided by applying abdominal pressure. The patient tolerated the procedure. The quality of the bowel preparation was adequate to identify polyps 6 mm and larger insize. The ileocecal valve, appendiceal orifice, andrectum were photographed. Complications: No immediate complications. Estimated blood loss: Minimal. Findings: The perianal and digital rectal examinations were normal. Pertinent negatives include normalsphincter tone. A 5 mm polyp was found at 70 cm proximal to theanus. The polyp was sessile. The polyp was removed with a cold snare. Resection and retrieval were complete. Estimated blood loss: 5 mL requiring treatment with placement of hemostatic clip(s). Retroflexion in the right colon was performed. A small amount of semi-liquid stool was found inthe entire colon, making visualization difficult. The exam was otherwise without abnormality ondirect and retroflexion views. Impression: - One 5 mm polyp at 70 cm proximal to the anus, removed with a cold snare. Resected andretrieved. - Stool in the entire examined colon. - The examination was otherwise normal on directand retroflexion views. Recommendation: - Due to placement of endoscopic clip(s), avoidanceof MRI for 30 day is recommended. - I will send results of your biopsy to you andyour referring physician or provider. If you do notreceive notification within 3 weeks, please call ouroffice. - Repeat colonoscopy in 5 years for surveillancebased on pathology results (with a 2 day bowel prep). DIPAK ANDREWS MD 06/01/2022 12:27:59 PM This report has been signed electronically. Number of Addenda: 0 Note Initiated On: 06/01/2022 11:48 AM Procedure Code(s): --- Professional --- 19527, Colonoscopy, flexible; with removal of tumor(s), polyp(s), or other lesion(s) by snare technique --- Technical --- 64080, Colonoscopy, flexible; with removal of tumor(s), polyp(s), or other lesion(s) by snare technique Diagnosis Code(s): --- Professional --- Z86.010, Personal history of colonic polyps K63.5, Polyp of colon --- Technical --- Z86.010, Personal history of colonic polyps K63.5, Polyp of colon CPT copyright 2020 [employer]. All rights reserved. The codes documented in this report are preliminary and upon yarn salvager reviewmay be revised to meet current compliance requirements. Procedure Date: 06/01/2022 11:48:[address] [place] [address] Melissa MAYS GI PROCEDURE ORDERABLES Flory bland Result * Fecal immunochemical test x1 (FIT) (09/20/2021 7:30 PM EST) Immuno Fecal Occult Negative Negative [facility] Stool (Stool) 09/20/2021 7:3 0 PM EST 09/20/2021 7:51 PM EST Samantha Burns PA-C BODY FLUIDS AND STOOLS ORDE HANNA Final Result [address] [address] * Pap Smear (06/20/2017 12:00 AM EST) 06/20/2017 06/21/2017 9:1 5 AM EST Narrative SEE NARRATIVE - 06/27/2017 3:46 PM EST [address] [address] Burn Crew Member: Cassie Renee MD CRYSTAL MACHINING COORDINATOR Cytology Report FINAL DIAGNOSIS A. PAP SMEAR (SUREPATH) CE: SPECIMEN ADEQUACY: Satisfactory for evaluation; transformation zone absent/insufficient. INTERPRETATION: NEGATIVE FOR INTRAEPITHELIAL LESION OR MALIGNANCY. Electronically Signed Out By: Kari Huber CT(ASCP) The Pap test is a screening test primarily for squamous cancers and precursors and has associated false-negative and false-positive results. New technologies such as liquid-based preparations may decrease but will not eliminate all false-negative results. Regular sampling and follow-up of unexplained clinical signs and symptoms are recommended to minimize false negative results. PROCEDURES/ADDENDA HPV Testing (Requested) Ordered Date: 06/21/2017 HPV Test Negative for high risk human papillomavirus types 16, 18 and the Other high risk probe set (Includes 31, 33, 35, 39, 45, 51, 52, 56, 58, 59, 66, 68) by Luis Daniel cobase 4800 HR-HPV analysis. Clinical correlation is advised. This HPV test was performed at [facility], [address] [place] [address]. The accuracy and precision of this test has been verified in the Cytopathology laboratory of the [facility]. This test has not been cleared or approved by the U.S. Food and Drug Administration (FDA). CLINICAL HISTORY Date of Last Menstrual Period: 06/02/17 Other Clinical Conditions: Screening Pap SPECIMEN SOURCE A: PAP SMEAR (SUREPATH) CE Patient Name: ARPITA MORA : 1970 (Age: 47) Sex: F Institution: [facility] Location: [facility] Date of Collection: 06/20/2017 Date of Reported: 06/27/2017 15:46 Results to: Lynn Stubbs MD Lynn Stubbs MD CYTOLOGY ORDERABLES Final Re sult SEE NARRATIVE from Last 3 Months or Most Recently Relevant to Health Maintenance Insurance MEDICARE PART A & B [place] A & [facility] [place] [place] MEDICARE PART A & B MEDICARE PART A & B MEDICARE PART A & B MEDICARE PART A & B [employer] MEDICARE PART A & B [facility] & B MEDICARE PART A [place] [address] [place] [address] [place] [address] [place] [address] [place] [address] [place] [address] [place] [address] Advance Directives For more information, please contact: [phone] (9AM - 5PM [place], Saturday-Saturday) Documents on File Type Date Recorded Patient Recruiting Operations Consultant Expl anation Legal Guardianship 06/07/2022 10:51 AM Gr anted * Full Code (Latest Code Status on File) Date Activated Date Inactivated Comments 02/18/2025 1:57 PM Question Answer Comments Code Status Confirmed With: Patient * Full Code Date Activated Date Inactivated Comments 02/03/2025 11:43 AM 02/18/2025 1:57 PM Question Answer Comments Code Status Confirmed With: Patient * Full Code Date Activated Date Inactivated Comments 10/09/2024 3:57 AM 02/03/2025 11:43 AM Question Answer Comments Code Status Confirmed With: Patient * Full Code Date Activated Date Inactivated Comments 08/05/2024 10:10 AM 10/09/2024 3:57 AM Question Answer Comments Code Status Confirmed With: Patient * Full Code Date Activated Date Inactivated Comments 07/22/2024 8:15 AM 08/05/2024 10:10 AM Question Answer Comments Code Status Confirmed With: Patient Care Teams Flight Test Data Acquisition Technician Relationship Specialty Start Date End Date Rosita Noble NP [address] [place] [address] PCP - General Nurse Practitioner 01/08/25 Jane Rabago MBBS [address] [place] [address] [email or web address] Primary Oncologist Medical Oncology 02/25/25 Additional Source Comments The information contained in this document represents components of the legal health record. It is not the complete legal health record.Located Within [facility]
--- OUTSIDE RECORDS SUMMARY | 2025-03-24 14:40 | XMS_ITS | Encounter Summary ---
Author Organization Formerly [facility] Address [address] [place] [address] Phone Care Team Providers Care Manager Of Digital Name Role Phone Nellie Morales CIVIL MANAGER Primary Care Provider Unknown, Unknown Primary Care Provider Melissa Ordonez Primary Care Provider [phone] Ethan Ty Primary Care Provider [phone] Rosita Noble CIVIL MANAGER Primary Care Provider [phone] Jane Rabago Unavailable [phone] Reason for Visit * Reason Comments Medication Refill Encounter Details Date Type Department Care Team (Late st Contact Info) Description 09/27/2021 Refill [facility] [address] [place] [address] Nando Morris MD [address] [place] [address] [email or web address] Medication Refill Social History Tobacco Use Types [...] Care Medicine [address] [place] [address] [place] [address] Dana Campo MD [address] 2nd [place] [address] [email or web address] documented as of [...] as of this encounter Care Teams Manager Of Digital Relationship Specialty Start Date End Date Nellie Morales NP PCP - General Family Medicine 09/06/21 02/07/22 Unknown, Nilson, PCP - General 02/08/22 05/31/22 Melissa Castrejon PA [address] [place] [address] [email or web address] PCP - General Unknown Provider Specialty 06/01/22 Ethan Ty PA [address] [place] [address] PCP - General Physician Bridge Construction Inspector 04/13/24 01/07/25 Rosita Noble NP [address] [place] [address] PCP - General Nurse Practitioner 01/08/25 Jane Rabago MBBS [address] [place] [address] [email or web address] Primary Oncologist Medical Oncology 02/25/25 documented as of this encounter Additional Source Comments The information contained in this document represents components of the legal health record. It is not the complete legal health record.[facility]
--- OUTSIDE RECORDS SUMMARY | 2025-03-24 14:40 | XMS_ITS | Encounter Summary ---
Author Organization [facility] Address [address] [place] [address] Phone Care Team Providers Care Heater Tender Name Role Phone Ethan Ty Primary Care Provider [phone] Rosita Noble NP Primary Care Provider [phone] Jane Rabago Unavailable [phone] Reason for Referral * Outpatient Procedure - Pending Review Specialty Diagnoses / Procedures Referred By Contac t Referred To Contact Radiology Diagnoses Other abnormal and inconclusive findings on diagnostic imaging of breast Procedures Mammogram Diagnostic Post Procedure (Right) Ethan Ty PA [address] [place] [address] Phone: tel: fax: Referral ID Status Reason Start Date Expiration Date V isits Requested Visits Authorized [id number] Pending Review 09/28/2024 1 1 Encounter Details Date Type Department Care Team (Latest Contact Info) Description 09/28/2024 Ancillary Orders Virtual Department [address] [place] [phone] Ethan Ty PA [address] [place] [address] Other abnormal and inconclusive findings on diagnostic imaging of breast (Primary Dx) Social History Tobacco Use [...] got money to buy more. Never True 07/21/2024 Within the past 6 months the food we bought just didn't last and we didn't have enough money to get more. Never True Residential Stability Answer Date Recor ded What is your housing situation today? I have rex ortez 07/21/2024 How many times have you move d in the past 12 months? Zero (I did not move) 07/21/2024 Paying for Meds Answer Date Recorded Do you have trouble paying for medicines? No 07/21/2024 Paying Utility Bills Answer Date Record ed Do you have trouble paying your heating or elect ricity bill? No 07/21/2024 Transportation Answer Date Recorded Has the lack of transportati on kept you from medical appointments or from getting medications? No 07/21/2024 Digital Access Answer Date Recorded No 07/21/2024 Yes 07/21/2024 Do you have reliable internet access at home? Ye s 07/21/2024 Do you have a device (e.g., phone, tablet, computer) with a working camera? Yes 07/21/2024 Intimate Partner Violence Answer Date R ecorded Are you denied basic needs s uch as food, clothing, or medical care? No 08/04/2024 In the past 12 months have y ou been in a relationship with a person who hurts, threatens, or tries to control you? No 08/04/2024 Are you denied basic needs s uch as food, clothing, or medical care? No 08/04/2024 In the past 12 months have y ou been in a relationship with a person who hurts, threatens, or tries to control you? No 08/04/2024 Comments No Sex and Gender Information Value [...] CD Pulmonary, Allergy and Critical Care Medicine [address] [place] [address] [place] [address] Dana Campo MD [address] [place] [phone] [email or web address] documented as of this encounter Results * BI MAMMOGRAM DIAGNOSTIC POST PROCEDURE NO TOMOSYNTHESIS NO CAD (RIGHT) (09/28/2024 11:20 AM EDT) Anatomical Region Laterality Modality Breast Right, Breast Bilateral Right M ammography 09/28/2024 4:56 PM EDT Addenda Addendum by Luke Rogers MD on 09/30/2024 5:56 PM EDT ADDENDUM: FINAL PATHOLOGIC DIAGNOSIS: RIGHT UPPER OUTER BREAST AT 9 O'CLOCK, ULTRASOUND-GUIDED CORE BIOPSY: Benign breast tissue with predominantly fibrosis. No atypia or malignancy on multiple additional levels. Considering that the imaging appearance is highly suspicious for malignancy surgical resection is recommended. Impressions 09/28/2024 4:59 PM EDT Ultrasound-guided core needle biopsy of the right breast - please see report content for details. An addendum to this report will be dictated when pathology results are available. Narrative 09/28/2024 4:59 PM EDT BI MCFP BIOPSY OF BREAST (RIGHT), BI MAMMOGRAM DIAGNOSTIC POST PROCEDURE NO [...] documented in the EMR. Under ultrasound guidance, core biopsy was performed of the target lesion. FINDINGS: SITE #1 Location: Right breast specify position Target: 9 mm suspicious mass Device: 14-gauge core biopsy needle Clip: A heart shape clip was placed at the procedure site. Post procedure mammogram: Biopsy clip in good position. Specimen: Multiple cores obtained. Submitted in formalin to pathology. The patient tolerated the procedure and there were no immediate complications. Procedure Note Luke Rogers MD - 09/28/2024 BI MCFP BIOPSY OF BREAST (RIGHT), BI MAMMOGRAM DIAGNOSTIC POST PROCEDURE NOTOMOSYNTHESIS NO CAD (RIGHT) Additional patient information: COMPARISON: [...] documented in the EMR. Under ultrasound guidance, corebiopsy was performed of the target lesion. FINDINGS: SITE #1 Location: Right breast specify position Target: 9 mm suspicious mass Device: 14-gauge core biopsy needle Clip: A heart shape clip was placed at the procedure site. Post procedure mammogram: Biopsy clip in good position. Specimen: Multiple cores obtained. Submitted in formalin to pathology. The patient tolerated the procedure and there were no immediatecomplications. IMPRESSION: Ultrasound-guided core needle biopsy of the right breast - please seereport content for details. An addendum to this report will be dictated when pathology results areavailable. Ethan [facility] Edited Result - Final documented in this encounter Visit Diagnoses Diagnosis Other abnormal and inconclusive findings on diagnostic imaging of breast- Primary Other abnormal and inconclusive findings on diagnostic imaging of breast documented in this encounter Care Teams Heater Tender Relationship Specialty Start Date End Date Ethan Ty PA [address] [place] [phone] PCP - General Physician Recreation Clerk 04/13/24 01/07/25 Rosita Noble NP [address] [place] [address] PCP - General Nurse Practitioner 01/08/25 Jane Rabago MBBS [address] [place] [address] [email or web address] Primary Oncologist Medical Oncology 02/25/25 documented as of this encounter Additional Source Comments The information contained in this document represents components of the legal health record. It is not the complete legal health record.[facility]
--- OUTSIDE RECORDS SUMMARY | 2025-03-24 14:40 | XMS_ITS | Encounter Summary ---
Author Organization [facility] Address [address] [facility] [address] [place] [address] Phone Care Team Providers Care Physical Director Name Role Phone Nellie Morales NP Primary Care Provider Unknown, Unknown Primary Care Provider Melissa Ordonez Primary Care Provider Ethan Ty Primary Care Provider Rosita Noble STEAM SETTER Primary Care Provider Jane Rabago Unavailable [phone] Encounter Details Date Type Department Care Team (Latest Contact Info) Description 10/18/2021 Transcribe Orders Virtual Department [address] [place] [address] Maame Meraz STEAM SETTER [address] [place] [address] Breast screening (Primary Dx) Social History Tobacco Use Types [...] Pulmonary, Allergy and Critical Care Medicine [address] [facility] [place] [address] Dana Campo MD [address] [facility] 2nd [place] [address] [email or web address] documented as of this encounter Visit Diagnoses Diagnosis Breast screening- Primary Breast screening, unspecified documented in this encounter Additional Health Concerns [...] documented as of this encounter Care Teams Physical Director Relationship Specialty Start Date End Date Nellie Morales NP PCP - General Family Medicine 09/06/21 02/07/22 Unknown, Nilson, PCP - General 02/08/22 05/31/22 Melissa Castrejon PA [address] [place] [address] [email or web address] PCP - General Unknown Provider Specialty 06/01/22 Ethan Ty PA [address] [place] [address] PCP - General Physician Audio Visual Technician 04/13/24 01/07/25 Rosita Noble NP [address] [place] [phone] PCP - General Nurse Practitioner 01/08/25 Jane Rabago MBBS [address] [place] [address] [email or web address] Primary Oncologist Medical Oncology 02/25/25 documented as of this encounter Additional Source Comments The information contained in this document represents components of the legal health record. It is not the complete legal health record.[facility]
--- OUTSIDE RECORDS SUMMARY | 2025-03-24 14:40 | XMS_ITS | Encounter Summary ---
Author Organization [facility] Address [address] [place] [address] Phone Care Team Providers Care Sewer Name Role Phone Lynn Abad MD Primary Care Provider Nellie Morales BASEBALL CLUB MANAGER Primary Care Provider Unknown, Unknown Primary Care Provider Melissa Ordonez Primary Care Provider Ethan Ty Primary Care Provider Rosita Noble BASEBALL CLUB MANAGER Primary Care Provider Jane RabagoBS Unavailable Reason for Referral * MRI/CAT Scan - Closed Specialty Diagnoses / Procedures Referred By Contac t Referred To Contact Radiology Diagnoses Achilles tendinitis of left lower extremity Procedures MRI Ankle (Left) Preet Swain PA Phone: tel: fax: Referral ID Status Reason Start Date Expiration Date Visits Re quested Visits Authorized [id number] Closed 07/01/2019 06/30/2020 1 1 Encounter Details Date Type Department Care Team (Latest Contact Info) Description 07/01/[address] [facility] Department [address] [place] [address] Preet Swain PA [address] [facility] [address] [place] [address] Achilles tendinitis of left lower extremity (Primary Dx) Social History Tobacco Use Types [...] [facility] Pulmonary, Allergy and Critical Care Medicine [address] [place] [address] Dana Campo MD [address] [place] [phone] documented as of this encounter Results * MRI ANKLE WITHOUT CONTRAST (LEFT) (02/26/2020 5:25 PM EDT) Anatomical Region Laterality Modality Ankle Left Magnetic Resonan ce 02/26/2020 5:30 PM EDT Impressions 02/26/2020 5:36 PM EDT Minor thickening of the distal Achilles tendon without significant signal change could indicate some mild tendinopathy. No prominent strain signal. Evidence of old lateral ankle ligamentous sprain. Narrative 02/26/2020 5:36 PM EDT TECHNIQUE: MRI ANKLE WITHOUT CONTRAST (LEFT) COMPARISON: None FINDINGS: BONE AND CARTILAGE: No fracture, osteonecrosis, or marrow replacing lesion. No talar dome osteochondral defect. Small amount of subchondral cystic change near the fibular portion of the posterior band of the talofibular ligament, possibly related to old injury. TENDONS: Medial lateral tendons unremarkable. There is some slight convexity to the distal Achilles tendon, sometimes seen with mild tendinopathy but no marked thickening or acute strain signal suggested. LIGAMENTS: Poorly defined anterior band talofibular ligament, probably related to old sprain no active injury suggested there. Some bony changes near the intact. Posterior talofibular ligament. Only portions of the calcaneofibular ligament seen. No acute changes there. Intact regional retinaculum. No subtalar ligamentous finding of concern. SOFT TISSUES: No acute strain signal or changes of denervation. Fatty to radiation through all regional muscles. No effusions. OTHER: Tarsal tunnel within normal limits. Normal fat signal within the sinus tarsi. No plantar fascia thickening. Procedure Note Preet Ozuna MD - 02/26/2020 TECHNIQUE: MRI ANKLE WITHOUT CONTRAST (LEFT) COMPARISON: None FINDINGS: BONE AND CARTILAGE: No fracture, osteonecrosis, or marrow replacinglesion. No talar dome osteochondral defect. Small amount of subchondralcystic change near the fibular portion of the posterior band of thetalofibular ligament, possibly related to old injury. TENDONS: Medial lateral tendons unremarkable. There is some slightconvexity to the distal Achilles tendon, sometimes seen with mildtendinopathy but no marked thickening or acute strain signal suggested. LIGAMENTS: Poorly defined anterior band talofibular ligament, probablyrelated to old sprain no active injury suggested there. Some bony changesnear the intact. Posterior talofibular ligament. Only portions of thecalcaneofibular ligament seen. No acute changes there. Intact regionalretinaculum. No subtalar ligamentous finding of concern. SOFT TISSUES: No acute strain signal or changes of denervation. Fatty toradiation through all regional muscles. No effusions. OTHER: Tarsal tunnel within normal limits. Normal fat signal within thesinus tarsi. No plantar fascia thickening. IMPRESSION: Minor thickening of the distal Achilles tendon without significant signalchange could indicate some mild tendinopathy. No prominent strain signal.Evidence of old lateral ankle ligamentous sprain. Preet JACKSON MR EXTREMITY Final Resul t documented in this encounter Visit Diagnoses Diagnosis Achilles tendinitis of left lower extremity- Primary Achilles tendinitis of left lower extremity documented in this encounter Additional Health Concerns [...] documented as of this encounter Care Teams Sewer Relationship Specialty Start Date End Date Lynn Abad MD [email or web address] PCP - General 05/09/17 09/05/21 Nellie Morales, BASEBALL CLUB MANAGER PCP - General Family Medicine 09/06/21 02/07/22 Unknown, Nilson, PCP - General 02/08/22 05/31/22 Melissa Castrejon PA [address] [place] [address] [email or web address] PCP - General Unknown Provider Specialty 06/01/22 Ethan Ty PA [address] [place] [address] PCP - General Physician [place] 04/13/24 01/07/25 Rosita Noble NP [address] [place] [address] PCP - General Nurse Practitioner 01/08/25 Jane Rabago MBBS [address] [place] [address] [email or web address] Primary Oncologist Medical Oncology 02/25/25 documented as of this encounter Additional Source Comments The information contained in this document represents components of the legal health record. It is not the complete legal health record.[facility]
--- OUTSIDE RECORDS SUMMARY | 2025-03-24 14:40 | XMS_ITS | Encounter Summary ---
Author Organization [facility] Address [address] [place] [address] Phone Care Team Providers Care Dean Of Men Name Role Phone Lynn Abad MD Primary Care Provider Nellie Morales MED SURG NURSE Primary Care Provider Unknown, Unknown Primary Care Provider Melissa Ordonez Primary Care Provider Ethan Ty Primary Care Provider Rosita Noble MED SURG NURSE Primary Care Provider Jane Rabago MBBS Unavailable Encounter Details Date Type Department Care Team (Latest Contact Info) Description 06/10/2019 Transcribe Orders [facility] Laboratory [address] [place], [place] [phone] Christopher Deleon MD [address] [place] [address] 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 Social History Tobacco Use Types Packs/Day Years [...] Critical Care Medicine [address] [place] [address] Dana Campo MD [address] [facility] 2nd [place] [address] documented as of this encounter Procedures Procedure Name Priority Date/Time Associated Diagnosis Comments CARBAMAZEPINE (TEGRETOL) LEVEL Routine 06/10/2019 8:09 AM EST 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 documented in this encounter Results * CARBAMAZEPINE (TEGRETOL) LEVEL (06/10/2019 8:09 AM EST) CARBAMAZEPINE 10.0 8.0 - 12.0 ug/mL [facility] Blood 06/10/2019 8:09 AM EST 06/10/2019 8:12 AM EST Christopher Deleon MD LAB BLOOD ORDERABLES Final Result [facility] [address] [place] [address] documented in this encounter Visit Diagnoses Diagnosis 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 documented in this encounter Additional Health Concerns [...] documented as of this encounter Care Teams Dean Of Men Relationship Specialty Start Date End Date Lynn Abad MD [email or web address] PCP - General 05/09/17 09/05/21 Nellie Morales NP PCP - General Family Medicine 09/06/21 02/07/22 Nilson, Nilson, PCP - General 02/08/22 05/31/22 Melissa Castrejon PA [address] [place] [address] [email or web address] PCP - General Unknown Provider Specialty 06/01/22 Ethan Ty PA [address] [place] [address] PCP - General Physician Security Operations Analyst 04/13/24 01/07/25 Rosita Noble NP [address] [place] [address] PCP - General Nurse Practitioner 01/08/25 Jane Rabago MBBS [address] [place] [phone] [email or web address] Primary Oncologist Medical Oncology 02/25/25 documented as of this encounter Additional Source Comments The information contained in this document represents components of the legal health record. It is not the complete legal health record.[facility]
--- OUTSIDE RECORDS SUMMARY | 2025-03-24 14:41 | XMS_ITS | Encounter Summary ---
Author Organization [facility] Address [address] [facility] [address] [place] [address] Phone Care Team Providers Care Embossograph Operator Name Role Phone Lynn Abad MD Primary Care Provider Nellie Morales COATER OPERATOR INSULATION BOARD Primary Care Provider Unknown, Unknown Primary Care Provider Melissa Ordonez Primary Care Provider [phone] Ethan Ty Primary Care Provider Rosita Noble COATER OPERATOR INSULATION BOARD Primary Care Provider [phone] Jane Rabago Unavailable Encounter Details Date Type Department Care Team (Late st Contact Info) Description 04/13/2021 Procedure Pass [facility], Ct Scan - [address] [place] [address] [address] Social History Tobacco Use Types Packs/Day Years [...] Date of Assessment Author No Risk Indicated 04/13/2021 9:56 AM EDT Reji Cisneros RN * [place] Suicide Severity Rating Scale (Screener/Recent Self-Report) Question Answer Date of Assessment Author 1. Wish to be (Past 1 Month) No 021 9:56 AM EDT Jennifer Cisneros, RON 2. Non-Specific Active Suici hernandez Thoughts (Past 1 Month) No 04/13/2021 9:56 AM EDT Jennifer Cisneros RN 6. Suicidal Behavior (Lifetime) No 9:56 AM EDT Jennifer Cisneros RN documented as of this encounter Plan of Treatment Upcoming Encounters Date Type Department Care Team (Late st Contact Info) Description 08/30/2025 8:20 AM EST Office Visit [facility] Pulmonary, Allergy and Critical Care Medicine [address] [place] [address] Dana Campo MD [address] [place] [address] [email or web address] documented as of this encounter Visit Diagnoses [...] documented as of this encounter Care Teams Embossograph Operator Relationship Specialty Start Date End Date Lynn Abad MD PCP - General 05/09/17 09/05/21 Nellie Morales NP PCP - General Family Medicine 09/06/21 02/07/22 Unknown, Unknown, PCP - General 02/08/22 05/31/22 Melissa Castrejon PA [address] [place] [address] [email or web address] PCP - General Unknown Provider Specialty 06/01/22 Ethan Ty PA [address] [place] [address] PCP - General Physician Development And Housing Director 04/13/24 01/07/25 Rosita Noble NP [address] [place] [address] PCP - General Nurse Practitioner 01/08/25 Jane Rabago MBBS [address] [place] [address] [email or web address] Primary Oncologist Medical Oncology 02/25/25 documented as of this encounter Additional Source Comments The information contained in this document represents components of the legal health record. It is not the complete legal health record.[facility]
--- OUTSIDE RECORDS SUMMARY | 2025-03-24 14:41 | XMS_ITS | Encounter Summary ---
Author Organization [facility] Address [address] [facility] [address] [place] [address] Phone Care Team Providers Care Glycerine Plant Operator Name Role Phone Lynn Abad MD Primary Care Provider Nellie Morales ASSOCIATE SOFTWARE DEVELOPER Primary Care Provider Unknown, Unknown Primary Care Provider Melissa Ordonez Primary Care Provider Ethan Ty Primary Care Provider Rosita Noble ASSOCIATE SOFTWARE DEVELOPER Primary Care Provider Jane Rabago Unavailable Encounter Details Date Type Department Care Team (Late st Contact Info) Description 04/13/2021 Procedure Pass [facility], Ct Scan - [address] [address] Social History Tobacco Use Types Packs/Day Years [...] 9:56 AM EDT Reji Cisneros RN * [place] Suicide Severity Rating Scale (Screener/Recent Self-Report) Question [...] [facility] Pulmonary, Allergy and Critical Care Medicine [address] [place] [address] Dana Campo MD [address] [place] [address] [email or web address] documented as of this encounter [...] documented as of this encounter Care Teams Glycerine Plant Operator Relationship Specialty Start Date End Date yLnn Abad MD PCP - General 05/09/17 09/05/21 Nellie Morales NP PCP - General Family Medicine 09/06/21 02/07/22 Unknown, Unknown, PCP - General 02/08/22 05/31/22 Melissa Castrejon PA [address] [place] [address] [email or web address] PCP - General Unknown Provider Specialty 06/01/22 Ethan Ty PA [address] [place] [address] PCP - General Physician Metal Shaping Machine Operator 04/13/24 01/07/25 Rosita Noble NP [address] [place] [address] PCP - General Nurse Practitioner 01/08/25 Jane Rabago MBBS [address] [place] [address] [email or web address] Primary Oncologist Medical Oncology 02/25/25 documented as of this encounter Additional Source Comments The information contained in this document represents components of the legal health record. It is not the complete legal health record.[facility]
== END 2025-03-24 13:49 | disposition home or self-care (01) ==
PROVIDERS: Emergency Provider Emergency Medicine
DX: S01.511A Laceration without foreign body of lip, initial encounter (principal); S80.02XA Contusion of left knee, initial encounter; R51.9 Headache, unspecified; M25.561 Pain in right knee; R42 Dizziness and giddiness; R94.31 Abnormal electrocardiogram [ECG] [EKG]; E11.9 Type 2 diabetes mellitus without complications; M54.2 Cervicalgia; W18.09XA Striking against other object with subsequent fall, initial encounter; Y93.9 Activity, unspecified; Y92.89 Other specified places as the place of occurrence of the external cause; Y99.8 Other external cause status; Z79.4 Long term (current) use of insulin; Z79.899 Other long term (current) drug therapy
CPT/HCPCS: 36415; 70450; 72125; 73560; 80048; 84484; 85025; 93005; 99284

== ENCOUNTER → 2025-03-24 11:15 | Outpatient (BNV) | payer MEDICARE, MEDICAID, SELFPAY | PROVIDERS: Emergency Provider Emergency Medicine; Visit Provider Radiology Diagnostic Radiology | DX: M54.2 Cervicalgia (principal) | CPT/HCPCS: 72125 ==

== ENCOUNTER → 2025-03-24 11:15 | Outpatient (BNV) | payer MEDICARE, MEDICAID, SELFPAY | PROVIDERS: Emergency Provider Emergency Medicine; Visit Provider Internal Medicine Cardiovascular Disease | DX: R42 Dizziness and giddiness (principal) | CPT/HCPCS: 93010 ==

== ENCOUNTER 2025-04-21 13:46 | Outpatient (AMB) | payer MEDICARE, MEDICAID, SELFPAY ==
--- NOTE | 2025-04-21 13:52 | A.OFFVIS_ITS ---
Intake Visit Reasons: CIVIL DRAFTSMAN - LT achilles tendon strain Intake Note: Arpita is a 54 year old female who presents today as a new patient for an evaluation of left achilles tendon strain. Patient was referred by PCP, per note patient presented to [facility] on 12/30/24 status post fall due to vertigo. She was given an ankle brace and at home exercises. Today patient reports that she was seen by her financial planning analyst who told her that she would need surgery due to torn achilles. She mentions a history of brain injury fell hitting her face. Complaints of swelling. She has tried and failed PT. Hx of left achilles tendon repair at [facility], kai is suggested anadjustable bed. hard to get out of bed in the mornings. Allergies sulfamethoxazole (From Bactrim) Allergy (Intermediate, Verified 04/21/25 14:08) Rash trimethoprim (From Bactrim) Allergy (Intermediate, Verified 04/21/25 14:08) Rash adhesive tape Allergy (Verified 04/21/25 14:08) Rash Jarales And Derivatives Allergy (Verified 04/21/25 14:08) Gastrointestinal Upset Benzodiazepines Adverse Reaction (Intermediate, Verified 04/21/25 14:08) Hives diazepam (From Valium) Adverse Reaction (Intermediate, Verified 04/21/25 14:08) Irritable Medication List - Last Reconciled 04/21/25 by Gilberto nSow PA-C acetaminophen 1,000 mg PO Q8H PRN acetaminophen 1,000 mg (2 x 500 mg) PO Q6H PRN 5 days albuterol sulfate 90 mcg/actuation (Ventolin HFA) 2 puffs inhalation Q6H PRN ammonium lactate 12% 1 appl topical BEDTIME budesonide-formoterol 160-4.5 mcg/actuation 2 puffs inhalation BID calcium carbonate (Tums Ultra) 1,000 mg PO Q8H PRN camphor-menthol 11-10 % ([place]) 1 appl topical Q6H PRN carbamazepine ER 200 mg PO TID carbamazepine ER 400 mg PO BID cetirizine 10 mg PO DAILY cholecalciferol (vitamin D3) 25 mcg PO DAILY cyclobenzaprine 7.5 mg PO BEDTIME dicyclomine 10 mg PO Q6H PRN docusate sodium 200 mg PO DAILY famotidine 40 mg PO BID ferrous sulfate (FeroSul) 325 mg PO BEDTIME fluoride (sodium) 1.1% (PreviDent 5000 Dry Mouth) 1 appl dental BID fluticasone propionate 50 mcg/actuation 2 sprays intranasal BID gabapentin 400 mg PO TID guaifenesin 400 mg PO Q6H PRN hydroxyzine pamoate 100 mg PO BEDTIME ibuprofen 600 mg PO Q6H PRN ibuprofen 400 mg PO Q6H PRN 5 days insulin glargine (Lantus Solostar U-100 Insulin) 10 units subcut BEDTIME ipratropium-albuterol 0.5 mg-3 mg(2.5 mg base)/3 mL 3 mL inhalation BID lactase 6,000 units PO Q6H PRN Lactobacillus rhamnosus GG (Culturelle) 1 cap PO DAILY latanoprost 0.005% 2 drps ophthalmic (eye) BEDTIME lidocaine 4% (Lidocaine Pain Relief) 1 patch topical DAILY lorazepam 0.5 mg PO DAILY PRN meclizine 12.5 mg PO TID PRN 5 days metformin ER 1,000 mg PO QAM multivitamin (Daily-Emil tablet) 1 tab PO DAILY 30 days ondansetron 4 mg PO Q8H PRN pantoprazole 40 mg PO BID@0630,1630 polyvinyl alcohol-povidone(PF) 1.4-0.6 % 1 drp ophthalmic (eye) QID prazosin 5 mg PO BEDTIME 30 days prazosin 2 mg PO BEDTIME quetiapine 300 mg PO BEDTIME quetiapine 25 mg PO Q8H PRN sitagliptin phosphate (Januvia) 100 mg PO DAILY trazodone 200 mg (2 x 100 mg) PO BEDTIME umeclidinium 62.5 mcg/actuation (Incruse Ellipta) 1 inh inhalation DAILY HPI HPI CIVIL DRAFTSMAN - LT achilles tendon strain: Details: 54-year-old female presents to the office today for left ankle pain. She states she had a left ankle surgery a proximally 3-5 years ago through [facility]. She describes something to the extent of removing the Achilles scraping down bone and then reattaching the Achilles tendon. More recently in December of this year she fell resulting in left ankle pain. She was seen at [facility]. She also has a financial planning analyst that she sees for her ankle. Her podiatr ist recommended she see an orthopedic surgeon because they were concerned about needing another surgery for her Achilles. She comes in today with crutches and a boot. [facility] Medical History (Updated 04/21/25 @ 14:30 by Gilberto Snow PA-C) Chest tightness Suicidal ideation GERD (gastroesophageal reflux disease) Sleep apnea Asthma Hearing loss Diabetes mellitus, type 2 Surgical History (Updated 04/21/25 @ 13:59 by Linda Em [facility]) History of Achilles tendon repair Social History Household Members: Other Household Members Other:: penitentiary Housing: Other Housing Other:: [facility] Do you presently have visiting nurse or other home services: Yes Alcohol intake: never Comment: pt on 5 min checks Patient Tobacco Use Status: Never used Tobacco e-Cigarette/Vaping Use: Never Used Bovie Medical service: No Sexual orientation: Straight/Heterosexual Review of Systems Const All systems reviewed & are unremarkable except as noted in HPI and below Physical Exam Const General: cooperative and no acute distress Orientation/consciousness: patient oriented x3 Resp Effort & Inspection: normal respiratory effort and able to speak in complete sentences Cardio Peripheral pulses: Peripheral pulses 2+ throughout Neuro General: patient oriented x3 Extrem Other: Left ankle is normal to inspection. There is no palpable defect over the Achilles tendon. She is able to plantar flex and dorsiflex. Neurovascularly intact. Assessment & Plan Assessment & Plan (1) Left Achilles tendinitis: Code(s): M76.62 - Achilles tendinitis, left leg Category: Medical Plan: I explained to the patient there does not appear to be an acute tendon rupture. No need for acute or urgent surgical intervention. At the very least we can order an MRI of the left ankle to further evaluate the history of her surgery and source of her pain given her current discomfort. She can continue with the boot. Once the MRI is complete I will review the results to determine the next step in her treatment. Orders: Orders MR ankle LT wo con Today M25.572 - Pain in left ankle and joints of left foot Coding Level of Care Code New Pt Level 3 (86426) Complex EM visit Add On G2211 Diagnoses Left Achilles tendinitis M76.62
== END 2025-04-21 14:56 | disposition home or self-care (01) ==
LOC: HO.HOS 13:47
PROVIDERS: Visit Provider Physician Assistant
DX: M76.62 Achilles tendinitis, left leg (principal)
CPT/HCPCS: 99203; G2211

== ENCOUNTER → 2025-04-21 13:46 | Outpatient (BNVA) | payer MEDICARE, MEDICAID, SELFPAY | PROVIDERS: Visit Provider Physician Assistant | DX: M76.62 Achilles tendinitis, left leg (principal) | CPT/HCPCS: 99202 ==

== ENCOUNTER 2025-05-12 18:08 | Outpatient (REF) | payer MEDICARE, MEDICAID, SELFPAY ==
--- NOTE | ~2025-05-12 | MR_ITS ---
EXAMINATION: MR ANKLE WITHOUT CONTRAST, LEFT CLINICAL INFORMATION: Pain, swelling. Patient reports prior Achilles tendinitis surgery. COMPARISON: None available. TECHNIQUE: MRI of the ankle was performed using routine sequences on a high-field scanner. FINDINGS: ACHILLES TENDON: There are postsurgical changes in the calcaneus, with bone anchors and mild T2 signal in the posterior calcaneus.. The Achilles tendon is thickened measuring up to 1.5 cm. Mild T2 signal in the distal Achilles tendon. The findings could be related to severe tendinosis, postsurgical changes, or a combination of these. No transverse tendon tear or retraction is seen. No significant peritendinitis. No significant retrocalcaneal bursitis is seen. BONE/JOINTS: Medial talar dome subchondral edema measuring 3 x 5 mm at the articular surface. This could reflect sequela of degenerative changes, osteochondral lesion. No loose or unstable osteochondral fragment seen. There is focal subchondral cyst/edema in the tibial plafond.. No aggressive marrow replacing lesion. No acute fracture. MUSCLES/TENDONS: Posterior tibial physiological fluid versus mild peritendinitis. Medial flexor tendons are intact. Mild peroneus longus peritendinitis/tenosynovitis. Peroneal tendons are intact. Intact extensor tendons. LIGAMENTS: Mild ATFL sprain. Posterior talofibular, tibiofibular, calcaneofibular ligaments are intact. Deltoid ligament is intact.. PLANTAR FASCIA: Increased T2 signal, with the ill-definition of the plantar fascia, consistent with severe fasciitis,,fraying/partial tearing. Surrounding soft tissue edema present. SINUS TARSI: Normal signal. TARSAL TUNNEL : Intact SUBCUTANEOUS SOFT TISSUES: Subcutaneous edema. No focal fluid collections. MR/MR ankle LT wo con IMPRESSION: 1. Postsurgical changes in the posterior calcaneus, with bone anchors mild edema. Abnormal Achilles tendon findings, with tendon thickening up to 1.5 cm AP, could be related to severe tendinosis, postsurgical changes, or a combination of these. No transverse tendon tear or retraction is seen. 2. Mild tibiotalar joint arthritis. Medial talar dome subchondral T2 signal measuring 3 x 5 mm, could reflect sequela of degenerative changes, osteochondral lesion. No loose unstable osteochondral fragment seen. 3. Mild peroneus longus peritendinitis/tenosynovitis. Posterior tibial physiological fluid versus mild peritendinitis. 4. Mild ATFL sprain. 5. Abnormal proximal fascia findings consistent with severe fasciitis, fraying/partial tearing. Electronically signed by: Jet Cruz MD 05/13/2025 07:57 AM EDT
--- OUTSIDE RECORDS SUMMARY | 2025-05-12 22:17 | XMS_ITS | Encounter Summary ---
Author Organization [facility] Address [address] [place] [address] Phone Care Team Providers Care Consumer Banker Name Role Phone Melissa Castrejon Primary Care Provider [phone] Ethan Ty Primary Care Provider [phone] Rosita Noble NP Primary Care Provider [phone] Jane Rabago Unavailable [phone] Encounter Details Date Type Department Care Team (Late Contact Info) Description 06/01/2022 Procedure Pass [facility] Endoscopy Admitting Dept Virtual Department [address] [place] [id number] Social History Tobacco Use Types Packs/Day Years [...] Upcoming Encounters Date Type Department Care Team ([facility] Contact Info) Description 08/30/2025 8:20 AM EST Office Visit [facility] Pulmonary, Allergy and Critical Care Medicine [address] [place], [place] [id number] Dana Campo MD [address] [address] [email or web address] documented as of this encounter Visit Diagnoses [...] documented as of this encounter Care Teams Consumer Banker Relationship Specialty Start Date End Date Melissa Castrejon PA [address] [place] [address] [email or web address] PCP - General Unknown Provider Specialty 06/01/22 Ethan Ty PA [address] [place] [address] PCP - General Physician In Class Special Education Teacher 04/13/24 01/07/25 Rosita Noble NP [address] [place] [address] PCP - General Nurse Practitioner 01/08/25 Jane Rabago MBBS [address] [place] [address] [email or web address] Primary Oncologist Medical Oncology 02/25/25 documented as of this encounter Additional Source Comments The information contained in this document represents components of the legal health record. It is not the complete legal health record.[facility]
--- OUTSIDE RECORDS SUMMARY | 2025-05-12 22:17 | XMS_ITS | Encounter Summary ---
Author Organization [facility] Address [address] [place] [address] Phone Care Team Providers Care Solderer Dipper Name Role Phone Lynn Abad MD Primary Care Provider [phone] Nellie Morales ORTHOTIST PROSTHETIST Primary Care Provider Unknown, Unknown Primary Care Provider Melissa Ordonez Primary Care Provider Ethan Ty Primary Care Provider [phone] Rosita Noble ORTHOTIST PROSTHETIST Primary Care Provider Jane Rabago MBBS Unavailable [phone] Encounter Details Date Type Department Care Team (Latest Contact Info) Description 05/31/2017 Transcribe Orders [facility] Laboratory [address] [place], [place] [phone] Christopher Deleon MD [address] [place] [address] Mood disorder due to known physiological condition [...] Pulmonary, Allergy and Critical Care Medicine [address] [facility] [place] [address] [place] [address] Dana Campo MD 10 [facility] 2nd [place] [address] [email or web address] documented as of this encounter Procedures Procedure Name Priority Date/Time Associated Diagnosis Comments CARBAMAZEPINE (TEGRETOL) LEVEL Routine 05/31/2017 8:06 AM EST 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 documented in this encounter Results * Carbamazepine (Tegretol) level (05/31/2017 8:06 AM EST) CARBAMAZEPINE 11.1 8.0 - 12.0 ug/mL [facility] Blood 05/31/2017 8:06 AM EST 05/31/2017 10:25 AM EST us Christopher Deleon MD LAB BLOOD ORDERABLES Final Result Performing Organization Address City/State/[facility] Co de Phone Number [facility] [address] [place] [address] documented in this encounter Visit Diagnoses Diagnosis [...] documented as of this encounter Care Teams Solderer Dipper Relationship Specialty Start Date End Date Lynn Abad MD [email or web address] PCP - General 05/09/17 09/05/21 Nellie Morales NP PCP - General Family Medicine 09/06/21 02/07/22 Unknown, Unknown, PCP - General 02/08/22 05/31/22 Melissa Castrejon PA [address] [place] [address] [email or web address] PCP - General Unknown Provider Specialty 06/01/22 Ethan Ty PA [address] [place] [address] PCP - General Physician Manual Arts Teacher 04/13/24 01/07/25 Rosita Noble NP [address] [place] [phone] PCP - General Nurse Practitioner 01/08/25 Jane Rabago MBBS [address] [place] [address] [email or web address] Primary Oncologist Medical Oncology 02/25/25 documented as of this encounter Additional Source Comments The information contained in this document represents components of the legal health record. It is not the complete legal health record.[facility]
--- OUTSIDE RECORDS SUMMARY | 2025-05-12 22:17 | XMS_ITS | Encounter Summary ---
Author Organization [facility] Address [address] [place] [address] Phone Care Team Providers Care Artificial Leather Calender Operator Name Role Phone Melissa Castrejon Primary Care Provider [phone] Ethan Ty Primary Care Provider [phone] Rosita Noble NP Primary Care Provider [phone] Jane Rabago Unavailable [phone] Reason for Visit * Reason Comments Medication Refill Encounter Details Date Type Department Care Team (Late st Contact Info) Description 10/26/2022 Refill [facility] [address] [place] [address] Nando Morris MD [address] [place] [address] Medication Refill Social History Tobacco Use Types [...] 8:17 AM EDT Theresa Floyd RN * [place] Suicide Severity Rating Scale (Screener/Recent Self-Report) Question [...] Behavior (3 Months) No 8:17 AM EDT Theresa Floyd RN documented as of this encounter Plan of Treatment Upcoming Encounters Date Type Department Care Team (Late st Contact Info) Description 08/30/2025 8:20 AM EST Office Visit [facility] Pulmonary, Allergy and Critical Care Medicine [address] [place] [address] Dana Campo MD [address] [place] [phone] documented as of this encounter Visit Diagnoses [...] documented as of this encounter Care Teams Artificial Leather Calender Operator Relationship Specialty Start Date End Date Melissa Castrejon PA [address] [place] [address] [email or web address] PCP - General Unknown Provider Specialty 06/01/22 Ethan Ty PA [address] [place] [address] PCP - General Physician Hydrogen Plant Operations Manager 04/13/24 01/07/25 Rosita Noble NP [address] [place] [address] PCP - General Nurse Practitioner 01/08/25 Jane Rabago MBBS [address] [place] [address] [email or web address] Primary Oncologist Medical Oncology 02/25/25 documented as of this encounter Additional Source Comments The information contained in this document represents components of the legal health record. It is not the complete legal health record.[facility]
--- OUTSIDE RECORDS SUMMARY | 2025-05-12 22:17 | XMS_ITS | Encounter Summary ---
Author Organization [facility] Address [address] [place] [address] Phone Care Team Providers Care Dental Specialist Name Role Phone Rosita Noble NP Primary Care Provider [phone] Jane Rabago MBBLANK Unavailable [phone] Encounter Details Date Type Department Care Team (Late st Contact Info) Description 02/03/2025 Procedure Pass [place] Admitting Dept - Virtual Department [address] [place] [address] Social History Tobacco Use Types Packs/Day Years [...] 02/05/2025 8:13 PM Maame Yap RN * [place] Suicide Severity Rating Scale (Screener/Recent Self-Report) Question [...] Pulmonary, Allergy and Critical Care Medicine 10 [place] [address] Dana Campo MD [address] [address] [email or web address] documented as of this encounter Visit Diagnoses Not on filedocumented in this encounter Care Teams Dental Specialist Relationship Specialty Start Date End Date Rosita Noble NP [address] [place] [phone] PCP - General Nurse Practitioner 01/08/25 Jane Rabago MBBS [address] [place] [address] Primary Oncologist Medical Oncology 02/25/25 documented as of this encounter Additional Source Comments The information contained in this document represents components of the legal health record. It is not the complete legal health record.[facility]
--- OUTSIDE RECORDS SUMMARY | 2025-05-12 22:17 | XMS_ITS | Encounter Summary ---
Author Organization [facility] Address [address] [place] [address] Phone Care Team Providers Care Junk Removal Specialist Name Role Phone Lynn Abad MD Primary Care Provider Nellie Morales LEGAL AID Primary Care Provider [phone] Unknown, Unknown Primary Care Provider Melissa Ordonez Primary Care Provider Ethan Ty Primary Care Provider Rosita Noble LEGAL AID Primary Care Provider Jane Rabago Unavailable Encounter Details Date Type Department Care Team (Late Contact Info) Description 04/28/2020 Procedure Pass [facility], Ct Scan - [address] [address] Social History Tobacco Use Types Packs/Day Years [...] Critical Care Medicine [address] [place] [address] [place] [address] Dana Campo MD 10 [facility] 2nd [place] [address] [email or web address] documented as of this [...] documented as of this encounter Care Teams Junk Removal Specialist Relationship Specialty Start Date End Date Lynn Abad MD PCP - General 05/09/17 09/05/21 Nellie Morales LEGAL AID PCP - General Family Medicine 09/06/21 02/07/22 Unknown, [place], PCP - General 02/08/22 05/31/22 Melissa Castrejon PA [address] [place] [address] [email or web address] PCP - General Unknown Provider Specialty 06/01/22 Ethan Ty PA [address] [place] [address] PCP - General Physician Gin Clerk 04/13/24 01/07/25 Rosita Noble NP [address] [place] [address] PCP - General Nurse Practitioner 01/08/25 Jane Rabago MBBS [address] [place] [address] [email or web address] Primary Oncologist Medical Oncology 02/25/25 documented as of this encounter Additional Source Comments The information contained in this document represents components of the legal health record. It is not the complete legal health record.[facility]
--- OUTSIDE RECORDS SUMMARY | 2025-05-12 22:17 | XMS_ITS | Data Portability ---
Author Organization [place] [facility] [place] [facility] Address [address] [place] [id number] Care Team Providers Care Paper Cutter Name Role Phone HIM CCA OTHER [...] declines treatment and reassessment by [facility], and says that she prefers to be evaluated in the ED. [email or web address] Not available 02/22/2024 21:25:54 Plan of Treatment Reminders Order Date Submit Date Provider Last Modified By Organization Details Last Modified Time Details Appointments None recorded. Lab BMP, serum or plasma 20[email or web address], [address] 21:27:51 hemoglobin + hematocrit, blood 2023 [email or web address], [address] 21:27:51 Referral None recorded. Procedures None recorded. Surgeries None recorded. Imaging electrocard iogram 2023 [email or web address], [address] 13:53:44 Medication Orders None recorded. Patient TargetsNo targets recorded. Patient InstructionsNo instructions recorded. Reason for Referral None Reported. Results Created Date Observation Date Name Description Value Unit Range Abnormal Flag Note LastModifiedBy Organization Detail LastModifiedTime 02/22/20 24 02/22/2024 rachael lernergr am No observ ation record ed. [facility] - [facility] [address] [place] [address], [phone] 02/22/2024 21:54:04 Result Notes None recorded. Medical Equipment None Reported. Allergies Allergen ID Allergen Name Allergen Category Reaction Reaction Severity Criticality Documentation Date Start Date Code Code System Note Provider Name and Address Organization Details Recorded Time 8941 Bactrim medicatio n Not available Not available Not available 05/19/2024 79756 9 RxNorm Not Available [facility] - production [...] carbamazepine ER 300 mg capsule,extende d release [id number] active Not Available Not Available N ot [...] active Not Available Not Available Not Available [facility] 10 billion cell-200 mg sprinkle [...] in Arterial blood by Pulse oximetry Systolic And Diastolic Provider Name and Address Organization Details Last Updated DateTime 4 991909. 632 g 97.5 [degF] 20 /min 157.48 cm 96 /min 98 % 98 % 164/113 mm[Hg] Not Available [facility] - production 4 19:31:52 Date Recorded Body weight Body temperature Respiratory rate Heart rate Oxygen saturation Oxygen saturation in Arterial blood by Pulse oximetry Body height Systolic And Diastolic Provider Name and Address Organization Details Last Updated DateTime 4 131042. 592 g 98.2 [degF] 22 /min 108 /min 97 % 97 % 170.18 cm 123/86 mm[Hg] Not Available [facility] - production 4 20:42:42 Social History None recorded. Functional Status None recorded. Mental Status None recorded. Family History Nothing Reported. Medical History No medical history recorded. Gynecological HistoryNo gynecological history recorded. Obstetrics History GPAL:G 0 P 0 0 0 0 Past Encounters Encounter ID Performer Location Encounter Start Date Encounter Closed Date Diagnosis/Indication Diagnosis SNOMED-CT Code Diagnosis ICD10 Code Diagnosis IMO Codes Diagnosis Note [id number] Gloria Sheehan MD Main - [facility] [address] [place] [phone] 02/17/2024 19:31:50 02/18/2024 14:46:56 Dyspnea [id number] R06.00 53 year old female with mental [...] assessment and plan as documented by the baby attendant. I provided real-time medical direction for this encounter and was immediatel y available to provide additional phone-base d assistance as needed. We discussed the diagnostic uncertaint y of home visits and associated risks. We discussed the need to seek care urgently/e mergently in the setting of any new or worsening symptoms. [id number] Gary Alexander MD Main - [facility] [address] [place] [address] 02/22/2024 20:42:28 02/23/2024 22:19:18 Weakness present [id number] M62.81 pt requesting transfer to ED for [...] Member ID Acosta Member ID Guarantor Name 02/23/2024 1 [facility] - DOS ON OR AFTER 2022 - DUAL ELIGIBLE - JAIL OPTIONS AND ONE CARE (MEDICARE REPLACEMENT/ADV ANTAGE - HMO) Arpita Calix [id number] Arpita Calix Notes Date Note Type Note Provider Name and Address Organization Details Recorded Time 02/17/2024 text/html [facility] Nurse Triage Notes (Zuri Kwan): Reason For Request: Pt reporting a hard time breathing>was told it was a viral infection at the ED>medically complex as the mbr states she has a brain injury>predominant symptoms are cough + SOBMbr states she uses [facility] in [place], [place] but is not sure which one [...] ...................... ...................... ...................... ...................... ...................... ...................... ......... Assistant Production Editor Note From Ritesh Gerard: [facility]. Pt complains [...] treatment and felt no better. Consulted with [facility] Dr. Sheehan who ordered COVID swab which came back negative. Pt ultimately decided to go to ED. 911 called with [facility] arriving for transport. Report given to transporting medic. ...................... ...................... ...................... ...................... ...................... ...................... ......... Disposition: Fulfilled Gloria Sheehan MD [address] [place] [address],[address], [place], [address], [facility] 02/17/2024 21:03:45 02/22/2024 [...] chills. Member would like to be evaluated. Assistant Production Editor Organization Information for [employer] Legal Name: [facility] Address: [address] [place] [address], [place] [address], Procurement Officer: Benitez Hernandez MD CLIA No.: [id number] Assistant Production Editor POC Test Results from [facility] (20:37:37) pH: 7.468 pH units pCO2: 38.6 mmHg pO2: 38.0 mmHg Na: 136 mmol/L K: 3.7 mmol/L iCa: 1.06 mmol/L Cl: 98 mmol/L TCO2: 27.9 mEq/L Hct: 37 % Hb: 12.4 g/dL Glu: 213 mg/dL Lac: 2.39 mmol/L Cr: 0.47 mg/dL BUN: 11 mg/dL A Attachments uploaded as part of this test result can be found under Documents section. Gary Alexander MD [address] [facility],[address], [place], [address], [employer] 02/22/2024 21:28:08 OBGyn Episode No OBEpisode recorded.
--- OUTSIDE RECORDS SUMMARY | 2025-05-12 22:17 | XMS_ITS | Encounter Summary ---
Author Organization [facility] Address [address] [place] [address] Phone Care Team Providers Care Asphalt Patcher Name Role Phone Melissa Castrejon Primary Care Provider [phone] Ethan Ty Primary Care Provider [phone] Rosita Noble NP Primary Care Provider [phone] Jane Rabago Unavailable [phone] Encounter Details Date Type Department Care Team (Late st Contact Info) Description 09/26/2022 Procedure Pass [facility], Ct Scan - [address] [address] Social History Tobacco Use Types Packs/Day Years [...] 3:25 PM EST Flory Gallegos RN * [place] Suicide Severity Rating Scale (Screener/Recent Self-Report) Question [...] Pulmonary, Allergy and Critical Care Medicine [address] [place] [address] Dana Campo MD [address] [address] [email or web address] documented as of this [...] documented as of this encounter Care Teams Asphalt Patcher Relationship Specialty Start Date End Date Melissa Castrejon PA [address] [place] [address] [email or web address] PCP - General Unknown Provider Specialty 06/01/22 Ethan Ty PA [address] [place] [address] PCP - General Physician Nutrition Representative 04/13/24 01/07/25 Rosita Noble NP [address] [place] [address] PCP - General Nurse Practitioner 01/08/25 Jane Rabago MBBS [address] [place] [address] [email or web address] Primary Oncologist Medical Oncology 02/25/25 documented as of this encounter Additional Source Comments The information contained in this document represents components of the legal health record. It is not the complete legal health record.[facility]
--- OUTSIDE RECORDS SUMMARY | 2025-05-12 22:17 | XMS_ITS | Encounter Summary ---
Author Organization [facility] Address [address] [facility] [address] [place] [address] Phone Care Team Providers Care Recreation Technician Name Role Phone Lynn Abad MD Primary Care Provider [phone] Nellie Morales GROCERY CASHIER Primary Care Provider Unknown, Unknown Primary Care Provider Melissa Ordonez Primary Care Provider Ethan Ty Primary Care Provider Rosita Noble GROCERY CASHIER Primary Care Provider Jane Rabago MBBS Unavailable Encounter Details Date Type Department Care Team (Latest Contact Info) Description 05/31/2017 Transcribe Orders [facility] [address] [place], [place] [phone] Christopher Deleon MD [address] [place] [address] Mood disorder due to known physiological condition [...] Critical Care Medicine [address] [place] [address] Dana Campo MD 10 [facility] 2nd [place] [address] [email or web address] documented as of this encounter Visit Diagnoses [...] documented as of this encounter Care Teams Recreation Technician Relationship Specialty Start Date End Date Lynn Abad MD PCP - General 05/09/17 09/05/21 Nellie Morales NP PCP - General Family Medicine 09/06/21 02/07/22 Unknown, Nilson, PCP - General 02/08/22 05/31/22 Melissa Castrejon PA [address] [place] [address] [email or web address] PCP - General Unknown Provider Specialty 06/01/22 Ethan Ty PA [address] [place] [address] PCP - General Physician Legal Mediator 04/13/24 01/07/25 Rosita Noble NP [address] [place] [address] PCP - General Nurse Practitioner 01/08/25 Jane Rabago MBBS [address] [place] [address] [email or web address] Primary Oncologist Medical Oncology 02/25/25 documented as of this encounter Additional Source Comments The information contained in this document represents components of the legal health record. It is not the complete legal health record.[facility]
--- OUTSIDE RECORDS SUMMARY | 2025-05-12 22:17 | XMS_ITS | Encounter Summary ---
Author Organization [facility] Address [address] [place] [address] Phone Care Team Providers Care Public Affairs Officer Name Role Phone Lynn Abad MD Primary Care Provider [phone] Nellie Morales FINGERER Primary Care Provider [phone] Unknown, Unknown Primary Care Provider Melissa Ordonez Primary Care Provider [phone] Ethan Ty Primary Care Provider [phone] Rosita Noble FINGERER Primary Care Provider Jane Rabago Unavailable [phone] Reason for Referral * Occupational Therapy (Routine) - Closed Specialty Diagnoses / Procedures Referred By Sammie kingsley Referred To Contact Occupational Therapy Diagnoses Encounter for rehabilitation RIGHT DE QUERVAIN TENDONITIS Procedures Treat Roberta Gonzalez MD Phone: tel: fax: [email or web address] [address] [address] Phone: tel: Referral ID Status Reason Start Date Expiration Date Visits Re quested Visits Authorized [id number] Closed 05/20/2017 05/30/2018 99 [phone] Encounter Details Date Type Department Care Team (Latest Contact Info) Description 05/30/2017 Transcribe Orders [facility] [address] [place] [address] Roberta Gonzalez MD [address] [place] [address] Orthopedics & Sports Medicine, [facility] [place] [address] [email or web address] Encounter for rehabilitation (Primary Dx) Social [...] Pulmonary, Allergy and Critical Care Medicine 10 [facility] [place] [address] Dana Campo MD 10 [facility] 2nd [place] [address] Scheduled Referrals Name Type Priority Associated Diagnoses Orde r Schedule Ambulatory referral to [facility] Occupational Therapy Outpatient Referral Routine Encounter [...] as of this encounter Care Teams Public Affairs Officer Relationship Specialty Start Date End Date Lynn Abad MD [email or web address] PCP - General 05/09/17 09/05/21 Nellie Morales NP PCP - General Family Medicine 09/06/21 02/07/22 Unknown, Unknown, PCP - General 02/08/22 05/31/22 Melissa Castrejon PA [address] [place] [address] [email or web address] PCP - General Unknown Provider Specialty 06/01/22 Ethan Ty PA [address] [place] [address] PCP - General Physician Cancer Researcher 04/13/24 01/07/25 Rostia Noble NP [address] [place] [address] PCP - General Nurse Practitioner 01/08/25 Jane Rabago MBBS [address] [place] [address] [email or web address] Primary Oncologist Medical Oncology 02/25/25 documented as of this encounter Additional Source Comments The information contained in this document represents components of the legal health record. It is not the complete legal health record.[facility]
--- OUTSIDE RECORDS SUMMARY | 2025-05-12 22:17 | XMS_ITS | Encounter Summary ---
Author Organization [facility] Address [address] [facility] [address] [place] [address] Phone Care Team Providers Care Bat Boy/Girl Name Role Phone Lynn Abad MD Primary Care Provider Nellie Morales PHOTOGRAMMETRIC TECH Primary Care Provider [phone] Unknown, Unknown Primary Care Provider Melissa Ordonez Primary Care Provider Ethan Ty Primary Care Provider Rosita Noble PHOTOGRAMMETRIC TECH Primary Care Provider Jane Rabago Unavailable [phone] Encounter Details Date Type Department Care Team (Late Contact Info) Description 04/06/2020 Procedure Pass [facility], Ct Scan - [address] [address] Social History Tobacco Use Types Packs/Day Years [...] Care Medicine [address] [place] [address] Dana Campo MD 10 [facility] 2nd [place] [address] [email or web address] documented as of [...] documented as of this encounter Care Teams Bat Boy/Girl Relationship Specialty Start Date End Date Lynn Abad MD PCP - General 05/09/17 09/05/21 Nellie Morales PHOTOGRAMMETRIC TECH PCP - General Family Medicine 09/06/21 02/07/22 Unknown, Nilson, PCP - General 02/08/22 05/31/22 Melissa Castrejon PA [address] [place] [address] [email or web address] PCP - General Unknown Provider Specialty 06/01/22 Ethan Ty PA [address] [place] [address] PCP - General Physician Director Of Workforce Development 04/13/24 01/07/25 Rosita Noble NP [address] [place] [address] PCP - General Nurse Practitioner 01/08/25 Jane Rabago MBBS [address] [place] [phone] [email or web address] Primary Oncologist Medical Oncology 02/25/25 documented as of this encounter Additional Source Comments The information contained in this document represents components of the legal health record. It is not the complete legal health record.[facility]
--- OUTSIDE RECORDS SUMMARY | 2025-05-12 22:17 | XMS_ITS | Encounter Summary ---
Author Organization [facility] Address [address] [facility] [address] [place] [address] Phone Care Team Providers Care Marketing Operations Intern Name Role Phone Melissa Castrejon Primary Care Provider Ethan Ty Primary Care Provider [phone] Rosita Noble NP Primary Care Provider [phone] Jane Rabago Unavailable [phone] Reason for Visit * Reason Comments Medication Refill Encounter Details Date Type Department Care Team (Late Contact Info) Description 09/28/2022 Refill [facility] [address] [place] [address] Nando Morris MD 30 [place] [address] Medication Refill Social History Tobacco Use Types [...] Pulmonary, Allergy and Critical Care Medicine 10 [facility] [place] [address] Dana Campo MD 10 [facility] 2nd [place] [address] [email or web address] documented as of this encounter Visit Diagnoses [...] documented as of this encounter Care Teams Marketing Operations Intern Relationship Specialty Start Date End Date Melissa Castrejon PA [address] [place] [address] [email or web address] PCP - General Unknown Provider Specialty 06/01/22 Ethan Ty PA [address] [place] [address] PCP - General Physician Scenario Writer 04/13/24 01/07/25 Rosita Noble NP [address] [place] [address] PCP - General Nurse Practitioner 01/08/25 Jane Rabago MBBS [address] [place] [address] [email or web address] Primary Oncologist Medical Oncology 02/25/25 documented as of this encounter Additional Source Comments The information contained in this document represents components of the legal health record. It is not the complete legal health record.[facility]
--- OUTSIDE RECORDS SUMMARY | 2025-05-12 22:18 | XMS_ITS | Encounter Summary ---
Author Organization [facility] Address [address] [facility] [address] [place] [address] Phone Care Team Providers Care Financial Health Counselor Name Role Phone Lynn Abad MD Primary Care Provider Nellie Morales PRINTED CIRCUIT BOARD PREASSEMBLER Primary Care Provider Unknown, Unknown Primary Care Provider Melissa Ordonez Primary Care Provider [phone] Ethan Ty Primary Care Provider [phone] Rosita Noble PRINTED CIRCUIT BOARD PREASSEMBLER Primary Care Provider Jane Rabago Unavailable Encounter Details Date Type Department Care Team (Late Contact Info) Description 10/30/2020 Procedure Pass [facility], Ct Scan - [address] [address] Social History Tobacco Use Types Packs/Day Years [...] Pulmonary, Allergy and Critical Care Medicine 10 [facility] [place] [address] Dana Campo MD 10 [facility] 2nd [place] [address] [email or web address] documented as of this encounter Visit Diagnoses [...] documented as of this encounter Care Teams Financial Health Counselor Relationship Specialty Start Date End Date Lynn Abad MD PCP - General 05/09/17 09/05/21 Nellie Morales NP PCP - General Family Medicine 09/06/21 02/07/22 Unknown, Unknown, PCP - General 02/08/22 05/31/22 Melissa Castrejon PA [address] [place] [address] [email or web address] PCP - General Unknown Provider Specialty 06/01/22 Ethan Ty PA [address] [place] [address] PCP - General Physician Gripper Installer 04/13/24 01/07/25 Rosita Noble NP [address] [place] [address] PCP - General Nurse Practitioner 01/08/25 Jane Rabago MBBS [address] [place] [address] [email or web address] Primary Oncologist Medical Oncology 02/25/25 documented as of this encounter Additional Source Comments The information contained in this document represents components of the legal health record. It is not the complete legal health record.[facility]
--- OUTSIDE RECORDS SUMMARY | 2025-05-12 22:18 | XMS_ITS | Encounter Summary ---
Author Organization [facility] Address [address] [address] [place] [address] Phone Care Team Providers Care Ore Dressing Engineer Name Role Phone Lynn Abad MD Primary Care Provider Nellie Morales STUDENT LIFE ADVISOR Primary Care Provider Unknown, Unknown Primary Care Provider Melissa Ordonez Primary Care Provider Ethan Ty Primary Care Provider [phone] Rosita Noble STUDENT LIFE ADVISOR Primary Care Provider [phone] Jane Rabago MBBS Unavailable [phone] Encounter Details Date Type Department Care Team (Late st Contact Info) Description 12/27/2017 Procedure Pass [facility], Ct Scan - [address] [address] Social History Tobacco Use Types Packs/Day Years [...] Pulmonary, Allergy and Critical Care Medicine 10 [facility] [address] [place] [address] Dana Campo MD 10 [facility] 2nd [facility] [place] [address] [email or web address] documented as of this encounter Visit Diagnoses [...] documented as of this encounter Care Teams Ore Dressing Engineer Relationship Specialty Start Date End Date Lynn Abad MD PCP - General 05/09/17 09/05/21 Nellie Morales, STUDENT LIFE ADVISOR PCP - General Family Medicine 09/06/21 02/07/22 Unknown, Nilson, PCP - General 02/08/22 05/31/22 Melissa Castrejon PA [address] [place] [address] [email or web address] PCP - General Unknown Provider Specialty 06/01/22 Ethan Ty PA [address] [place] [address] PCP - General Physician Senior Firewall Engineer 04/13/24 01/07/25 Rosita Noble NP [address] [place] [address] PCP - General Nurse Practitioner 01/08/25 Jnae Rabago MBBS [address] [place] [address] [email or web address] Primary Oncologist Medical Oncology 02/25/25 documented as of this encounter Additional Source Comments The information contained in this document represents components of the legal health record. It is not the complete legal health record.[facility]
--- OUTSIDE RECORDS SUMMARY | 2025-05-12 22:18 | XMS_ITS | Encounter Summary ---
Author Organization [facility] Address [address] [address] [place] [address] Phone Care Team Providers Care Dry Cleaning Teacher Name Role Phone Lynn Abad MD Primary Care Provider Nellie Morales POINTER HELPER Primary Care Provider Unknown, Unknown Primary Care Provider Melissa Ordonez Primary Care Provider Ethan Ty Primary Care Provider [phone] Rosita Noble POINTER HELPER Primary Care Provider [phone] Jane Rabago Unavailable Encounter Details Date Type Department Care Team (Late st Contact Info) Description 01/06/2021 Procedure Pass [facility], Ct Scan - [address] [address] Social History Tobacco Use Types Packs/Day Years [...] 10:04 PM EDT Mee Cee RN * [place] Suicide Severity Rating Scale (Screener/Recent Self-Report) Question [...] [facility] Pulmonary, Allergy and Critical Care Medicine [address] [place] [address] Dana Campo MD [address] [place] [address] [email or web address] documented as of this encounter [...] documented as of this encounter Care Teams Dry Cleaning Teacher Relationship Specialty Start Date End Date Lynn Abad MD PCP - General 05/09/17 09/05/21 Nellie Morales POINTER HELPER PCP - General Family Medicine 09/06/21 02/07/22 Unknown, Nilson, PCP - General 02/08/22 05/31/22 Melissa Castrejon PA [address] [place] [address] [email or web address] PCP - General Unknown Provider Specialty 06/01/22 Ethan Ty PA [address] [place] [address] PCP - General Physician Circuit Tester 04/13/24 01/07/25 Rosita Noble NP [address] [place] [address] PCP - General Nurse Practitioner 01/08/25 Jane Rabago MBBS 30 [place] [address] Primary Oncologist Medical Oncology 02/25/25 documented as of this encounter Additional Source Comments The information contained in this document represents components of the legal health record. It is not the complete legal health record.[facility]
--- OUTSIDE RECORDS SUMMARY | 2025-05-12 22:18 | XMS_ITS | Encounter Summary ---
Author Organization [facility] Address [address] [facility] [address] [place] [address] Phone Care Team Providers Care Produce Assistant Name Role Phone Lynn Abad MD Primary Care Provider Nellie Morales BATTERY SERVICE TECHNICIAN Primary Care Provider Unknown, Unknown Primary Care Provider Melissa Ordonez Primary Care Provider Ethan Ty Primary Care Provider [phone] Rosita Noble BATTERY SERVICE TECHNICIAN Primary Care Provider [phone] Jane Rabago MBBS Unavailable Encounter Details Date Type Department Care Team (Late st Contact Info) Description 04/04/2018 Procedure Pass [facility], Ct Scan - [address] [address] Social History Tobacco Use Types Packs/Day Years [...] Allergy and Critical Care Medicine 10 [facility] [address] [place] [address] Dana Campo MD 10 [facility] 2nd [facility] [place] [address] [email or web address] documented [...] documented as of this encounter Care Teams Produce Assistant Relationship Specialty Start Date End Date Lynn Abad MD PCP - General 05/09/17 09/05/21 Nellie Morales, BATTERY SERVICE TECHNICIAN PCP - General Family Medicine 09/06/21 02/07/22 Unknown, Nilson, PCP - General 02/08/22 05/31/22 Melissa Castrejon PA [address] [place] [address] [email or web address] PCP - General Unknown Provider Specialty 06/01/22 Ethan Ty PA [address] [place] [address] PCP - General Physician Wax Room Supervisor 04/13/24 01/07/25 Rosita Noble NP [address] [place] [address] PCP - General Nurse Practitioner 01/08/25 Jane Rabago MBBS [address] [place] [address] [email or web address] Primary Oncologist Medical Oncology 02/25/25 documented as of this encounter Additional Source Comments The information contained in this document represents components of the legal health record. It is not the complete legal health record.[facility]
--- OUTSIDE RECORDS SUMMARY | 2025-05-12 22:18 | XMS_ITS | Encounter Summary ---
Author Organization [facility] Address [address] [facility] [address] [place] [address] Phone Care Team Providers Care Regional Medical Director Name Role Phone Melissa Castrejon Primary Care Provider [phone] Ethan Ty Primary Care Provider [phone] Rosita Noble NP Primary Care Provider [phone] Jane Rabago Unavailable [phone] Reason for Visit * Reason Comments Medication Refill Encounter Details Date Type Department Care Team (Late st Contact Info) Description 11/21/2023 Refill [facility] [address] [place] [address] Nando Morris MD 30 [place] [address] Medication Refill Social History Tobacco Use Types [...] Pulmonary, Allergy and Critical Care Medicine 10 [place] [address] Dana Campo MD 10 [facility] 2nd [place] [address] [email or web address] documented as of this encounter Visit Diagnoses Not on filedocumented in this encounter Additional Health Concerns Infection Onset Date Last Indicated Resolved Time CoV-Risk Comment:2 neg covid 01/30/2024 01/30/2024 02/04/2024 9:47 AM E DT CoV-Risk 02/17/2024 02/17/2024 02/28/2024 1:23 AM EDT CoV-Risk 07/27/2024 08/08/2024 08/19/2024 1:21 AM EST documented as of this encounter Care Teams Regional Medical Director Relationship Specialty Start Date End Date Melissa Castrejon PA [address] [place] [address] [email or web address] PCP - General Unknown Provider Specialty 06/01/22 Ethan Ty PA [address] [place] [address] PCP - General Physician Supervisor Frame Assembly 04/13/24 01/07/25 Rosita Noble NP 70 [place] [address] PCP - General Nurse Practitioner 01/08/25 Jane Rabago MBBS [address] [place], [place] [address] [email or web address] Primary Oncologist Medical Oncology 02/25/25 documented as of this encounter Additional Source Comments The information contained in this document represents components of the legal health record. It is not the complete legal health record.[facility]
--- OUTSIDE RECORDS SUMMARY | 2025-05-12 22:18 | XMS_ITS | Encounter Summary ---
Author Organization [facility] Address [address] [facility] [address] [place] [address] Phone Care Team Providers Care Fiber Worker Name Role Phone Lynn Abad MD Primary Care Provider Nellie Morales WAREHOUSE STOCK CLERK Primary Care Provider [phone] Unknown, Unknown Primary Care Provider Melissa Ordonez Primary Care Provider [phone] Ethan Ty Primary Care Provider Rosita Noble WAREHOUSE STOCK CLERK Primary Care Provider Jane Rabago MBBS Unavailable Encounter Details Date Type Department Care Team (Latest Contact Info) Description 10/18/2017 Transcribe Orders [facility] Laboratory [address] [place], [place] [phone] Christopher Deleon MD [address] [place] [address] Mood disorder due to known physiological condition [...] Critical Care Medicine [address] [place] [address] Dana Campo MD 10 [facility] 2nd [place] [address] documented as of this encounter Results * CARBAMAZEPINE (TEGRETOL) LEVEL (10/18/2017 8:25 AM EDT) CARBAMAZEPINE 10.4 8.0 - 12.0 ug/mL [facility] Blood 10/18/2017 8:25 AM EDT 10/18/2017 10:54 AM EDT Christopher Deleon MD LAB BLOOD ORDERABLES Final Result [facility] [address] [place] [address] documented in this encounter Visit Diagnoses Diagnosis [...] documented as of this encounter Care Teams Fiber Worker Relationship Specialty Start Date End Date Lynn Abad MD [email or web address] PCP - General 05/09/17 09/05/21 Nellie Morales NP PCP - General Family Medicine 09/06/21 02/07/22 Unknown, Nilson, PCP - General 02/08/22 05/31/22 Melissa Castrejon PA 70 [place] [address] [email or web address] PCP - General Unknown Provider Specialty 06/01/22 Ethan Ty PA 70 [place] [address] PCP - General Physician Data Entry Clerk 04/13/24 01/07/25 Rosita Noble NP [address] [place] [address] PCP - General Nurse Practitioner 01/08/25 Jane Rabago MBBS [address] [place] [address] [email or web address] Primary Oncologist Medical Oncology 02/25/25 documented as of this encounter Additional Source Comments The information contained in this document represents components of the legal health record. It is not the complete legal health record.[facility]
--- OUTSIDE RECORDS SUMMARY | 2025-05-12 22:18 | XMS_ITS | Encounter Summary ---
Author Organization [facility] Address [address] [place] [address] Phone Care Team Providers Care Vehicle Upholsterer Name Role Phone Rosita Noble NP Primary Care Provider [phone] Jane Rabago MBBLANK Unavailable [phone] Encounter Details Date Type Department Care Team (Late st Contact Info) Description 03/08/2025 Procedure Pass [facility], Ct Scan - [facility] 30 [place] [address] Social History Tobacco Use Types Packs/Day Years [...] 1:36 PM EDT Jaya Steiner, RON * [place] Suicide Severity Rating Scale (Screener/Recent Self-Report) Question [...] Pulmonary, Allergy and Critical Care Medicine 10 [place] [address] Dana Campo MD 10 [facility] 2nd [place] [address] [email or web address] documented as of this encounter Visit Diagnoses Not on filedocumented in this encounter Care Teams Vehicle Upholsterer Relationship Specialty Start Date End Date Rosita Noble NP [address] [place] [address] PCP - General Nurse Practitioner 01/08/25 Jane Rabago MBBS [address] [place] [address] [email or web address] Primary Oncologist Medical Oncology 02/25/25 documented as of this encounter Additional Source Comments The information contained in this document represents components of the legal health record. It is not the complete legal health record.[facility]
--- OUTSIDE RECORDS SUMMARY | 2025-05-12 22:18 | XMS_ITS | Encounter Summary ---
Author Organization [facility] Address [address] [facility] [address] [place] [address] Phone Care Team Providers Care Ski Production Supervisor Name Role Phone Nellie Morales CONSTRUCTION ECONOMIST Primary Care Provider [phone] Unknown, Unknown Primary Care Provider Melissa Ordonez Primary Care Provider [phone] Ethan Ty Primary Care Provider [phone] Rosita Noble CONSTRUCTION ECONOMIST Primary Care Provider Jane Rabago Unavailable [phone] Encounter Details Date Type Department Care Team (Late st Contact Info) Description 10/19/2021 Ancillary Orders [facility],Outside Imaging 30 [place], [place] [id number] System, Provider Not In, [place] [address] Social History Tobacco Use Types Packs/Day Years [...] 5:34 PM EDT Eloisa Franklin RN * [place] Suicide Severity Rating Scale (Screener/Recent Self-Report) Question [...] CD Pulmonary, Allergy and Critical Care Medicine [address] [place] [address] Dana Campo MD [address] [place] [address] documented as of this encounter Results * [...] documented as of this encounter Care Teams Ski Production Supervisor Relationship Specialty Start Date End Date Nellie Morales, CONSTRUCTION ECONOMIST PCP - General Family Medicine 09/06/21 02/07/22 Unknown, Unknown, PCP - General 02/08/22 05/31/22 Melisas Castrejon PA [address] [place] [address] [email or web address] PCP - General Unknown Provider Specialty 06/01/22 Ethan yT PA [address] [place] [address] PCP - General Physician Research Coordinator 04/13/24 01/07/25 Rosita Noble NP [address] [place] [address] PCP - General Nurse Practitioner 01/08/25 Jane Rabago MBBS [address] [place] [address] [email or web address] Primary Oncologist Medical Oncology 02/25/25 documented as of this encounter Additional Source Comments The information contained in this document represents components of the legal health record. It is not the complete legal health record.[facility]
--- OUTSIDE RECORDS SUMMARY | 2025-05-12 22:18 | XMS_ITS | Encounter Summary ---
Author Organization [facility] Address [address] [facility] [address] [place] [address] Phone Care Team Providers Care Printer'S Devil Name Role Phone Melissa Castrejon Primary Care Provider Ethan Ty Primary Care Provider [phone] Rosita Noble NP Primary Care Provider [phone] Jane Rabago Unavailable [phone] Encounter Details Date Type Department Care Team (Late st Contact Info) Description 03/23/2023 Transcribe Orders [facility] Neurology [address] [place] [address] Monae Social History Tobacco Use Types Packs/Day Years [...] Description 08/30/2025 8:20 AM EST Office Visit [facility] Pulmonary, Allergy and Critical Care Medicine 10 [place] [address] Dana Campo MD [address] [address] [email or web address] documented as of this encounter Visit Diagnoses [...] documented as of this encounter Care Teams Printer'S Devil Relationship Specialty Start Date End Date Melissa Castrejon PA 70 [place] [address] [email or web address] PCP - General Unknown Provider Specialty 06/01/22 Ethan Ty PA 70 [place] [address] PCP - General Physician Dice Person 04/13/24 01/07/25 Rosita Noble NP [address] [place] [address] PCP - General Nurse Practitioner 01/08/25 Jane Rabago MBBS [address] [place] [address] [email or web address] Primary Oncologist Medical Oncology 02/25/25 documented as of this encounter Additional Source Comments The information contained in this document represents components of the legal health record. It is not the complete legal health record.[facility]
--- OUTSIDE RECORDS SUMMARY | 2025-05-12 22:18 | XMS_ITS | Encounter Summary ---
Author Organization [facility] Address [address] [facility] [address] [place] [address] Phone Care Team Providers Care Rail Specialist Name Role Phone Lynn Abad MD Primary Care Provider [phone] Nellie Morales FABRIC MACHINE OPERATOR Primary Care Provider [phone] Unknown, Unknown Primary Care Provider Melissa Ordonez Primary Care Provider Ethan Ty Primary Care Provider [phone] Rosita Noble FABRIC MACHINE OPERATOR Primary Care Provider Jane Rabago MBBS Unavailable [phone] Encounter Details Date Type Department Care Team (Latest Contact Info) Description 08/31/2020 Transcribe Orders Virtual Department 30 [place] [address] Lynn Abad MD 70 [place] [address] [email or web address] Cough (Primary Dx); SOB (shortness [...] Pulmonary, Allergy and Critical Care Medicine 10 [facility] [place] [address] Dana Campo MD [address] [place] [address] 2nd [place] [address] [email or web address] documented as of this encounter Results * COVID-19 PCR Order (09/02/2020 7:50 AM EST) COVID Testing Status Specimen received in analyzing lab. Results should be available within 24 to 48 hrs. [facility] Symptomatic? YES [facility] 09/02/2020 7:50 AM EST 09/02/2020 11:18 AM EST us Lynn Abad MD BODY FLUIDS AND STOOLS ORDER KATHRYN Final Result Performing Organization Address City/State/[facility] Co de Phone Number [facility] [address] [place] [address] [facility] [address] [place] [address] documented in this encounter Visit Diagnoses Diagnosis [...] documented as of this encounter Care Teams Rail Specialist Relationship Specialty Start Date End Date Lynn Abad MD [email or web address] PCP - General 05/09/17 09/05/21 Nellie Morales FABRIC MACHINE OPERATOR PCP - General Family Medicine 09/06/21 02/07/22 Unknown, Nilson, PCP - General 02/08/22 05/31/22 Melissa Castrejon PA 70 [place] [address] [email or web address] PCP - General Unknown Provider Specialty 06/01/22 Ethan Ty PA 70 [place] [address] PCP - General Physician Solar Panel Installer 04/13/24 01/07/25 Rosita Noble NP [address] [place] [address] PCP - General Nurse Practitioner 01/08/25 Jane Rabago MBBS [address] [place] [address] [email or web address] Primary Oncologist Medical Oncology 02/25/25 documented as of this encounter Additional Source Comments The information contained in this document represents components of the legal health record. It is not the complete legal health record.[facility]
--- OUTSIDE RECORDS SUMMARY | 2025-05-12 22:18 | XMS_ITS | Encounter Summary ---
Author Organization [facility] Address [address] [facility] [address] [place] [address] Phone Care Team Providers Care Sales Contractor Name Role Phone Lynn Abad MD Primary Care Provider [phone] Nellie Morales EXECUTIVE STAFF ASSISTANT Primary Care Provider [phone] Unknown, Unknown Primary Care Provider Melissa Ordonez Primary Care Provider Ethan Ty Primary Care Provider Rosita Noble EXECUTIVE STAFF ASSISTANT Primary Care Provider Jane Rabago MBBS Unavailable Encounter Details Date Type Department Care Team (Latest Contact Info) Description 12/12/2017 Transcribe Orders [facility] Laboratory [address] [place], [place] [phone] Christopher Deleon MD 50 [place] [address] Mood disorder due to known physiological condition [...] Care Medicine [address] [place] [address] Dana Campo MD 10 [facility] 2nd [place] [address] [email or web address] documented [...] documented as of this encounter Care Teams Sales Contractor Relationship Specialty Start Date End Date Lynn Abad MD PCP - General 05/09/17 09/05/21 Nellie Morales NP PCP - General Family Medicine 09/06/21 02/07/22 Unknown, Nilson, PCP - General 02/08/22 05/31/22 Melissa Castrejon PA [address] [place] [address] [email or web address] PCP - General Unknown Provider Specialty 06/01/22 Ethan Ty PA [address] [place] [address] PCP - General Physician Berry Planter 04/13/24 01/07/25 Rosita Noble NP [address] [place] [address] PCP - General Nurse Practitioner 01/08/25 Jane Rabago MBBS [address] [place] [address] [email or web address] Primary Oncologist Medical Oncology 02/25/25 documented as of this encounter Additional Source Comments The information contained in this document represents components of the legal health record. It is not the complete legal health record.[facility]
--- OUTSIDE RECORDS SUMMARY | 2025-05-12 22:18 | XMS_ITS | Encounter Summary ---
Author Organization [facility] Address [address] [facility] [address] [place] [address] Phone Care Team Providers Care Automotive Sales Professional Name Role Phone Melissa Castrejon Primary Care Provider [phone] Ethan Ty Primary Care Provider [phone] Rosita Noble NP Primary Care Provider [phone] Jane Rabago Unavailable [phone] Reason for Visit * Reason Comments Medication Refill Encounter Details Date Type Department Care Team (Late Contact Info) Description 06/10/2022 Refill [facility] 30 [place] [address] Nando Morris MD 30 [place] [address] Medication Refill Social History Tobacco Use Types [...] Pulmonary, Allergy and Critical Care Medicine 10 [facility] [place] [address] Dana Campo MD 10 [facility] 2nd [place] [address] [email or web address] documented as of this encounter Visit Diagnoses [...] documented as of this encounter Care Teams Automotive Sales Professional Relationship Specialty Start Date End Date Melissa Castrejon PA [address] [place] [address] PCP - General Unknown Provider Specialty 06/01/22 Ethan Ty PA [address] [place] [address] PCP - General Physician Hot Head Machine Operator 04/13/24 01/07/25 Rosita Noble NP [address] [place] [address] PCP - General Nurse Practitioner 01/08/25 Jane Rabago MBBS [address] [place] [address] [email or web address] Primary Oncologist Medical Oncology 02/25/25 documented as of this encounter Additional Source Comments The information contained in this document represents components of the legal health record. It is not the complete legal health record.[facility]
--- OUTSIDE RECORDS SUMMARY | 2025-05-12 22:18 | XMS_ITS | Encounter Summary ---
Author Organization [facility] Address [address] [facility] [address] [place] [address] Phone Care Team Providers Care Sand Filler Name Role Phone Rosita Noble NP Primary Care Provider [phone] Jane Rabago Unavailable [phone] Reason for Referral * Outpatient Procedure - Closed Specialty Diagnoses / Procedures Referred By Sammie kingsley Referred To Contact Radiology Diagnoses Abnormal imaging of central nervous system Procedures Mammogram Diagnostic Post Procedure (Right) Stacy Garcia MD [address] [address] Phone: tel: fax: mailto: Referral ID Status Reason Start Date Expiration Date Visits Re quested Visits Authorized [id number] Closed 01/25/2025 1 1 Encounter Details Date Type Department Care Team (Late st Contact Info) Description 01/25/2025 Ancillary Orders [facility] 30 [place] [address] Stacy Garcia MD [address] [address] [email or web address] Abnormal imaging of central nervous [...] Description 08/30/2025 8:20 AM EST Office Visit [facility] Pulmonary, Allergy and Critical Care Medicine [address] [place] [address] Dana Campo MD [address] [place] [address] documented as of this encounter Results * BI MAMMOGRAM DIAGNOSTIC POST PROCEDURE NO TOMOSYNTHESIS NO CAD (RIGHT) (01/25/2025 10:06 AM EDT) Anatomical Region Laterality Modality Breast Right, Breast Bilateral Right M ammography 01/25/2025 10:2 3 AM EDT Impressions 01/25/2025 10:27 AM EDT Ultrasound-guided needle localization of the right breast - please see report content for details. Narrative 01/25/2025 10:27 AM EDT BI RETIREMENT BREAST NEEDLE LOCALIZATION (RIGHT), BI MAMMOGRAM DIAGNOSTIC [...] 9:00 Target: [place] Localizer device: RF Tag ID#[id number] Post procedure mammogram: Localizer device in good position relative to the target. Specimen radiograph: Will be performed separately and dictated separately. The patient was discharged home in stable condition. Procedure Note Lynn Barbosa MD - 01/25/2025 BI RETIREMENT BREAST NEEDLE LOCALIZATION (RIGHT), BI MAMMOGRAM DIAGNOSTIC [...] 9:00 Target: [place] Localizer device: RF Tag ID#[id number] Post procedure mammogram: Localizer device in good [...] system documented in this encounter Care Teams Sand Filler Relationship Specialty Start Date End Date Rosita Noble NP [address] [place] [address] PCP - General Nurse Practitioner 01/08/25 Jane Rabago MBBS [address] [place] [address] [email or web address] Primary Oncologist Medical Oncology 02/25/25 documented as of this encounter Additional Source Comments The information contained in this document represents components of the legal health record. It is not the complete legal health record.[facility]
--- OUTSIDE RECORDS SUMMARY | 2025-05-12 22:18 | XMS_ITS | Encounter Summary ---
Author Organization [facility] Address [address] [facility] [address] [place] [address] Phone Care Team Providers Care Foundry Helper Name Role Phone Melissa Castrejon Primary Care Provider [phone] Ethan Ty Primary Care Provider [phone] Rosita Noble NP Primary Care Provider [phone] Jane Rabago Unavailable [phone] Reason for Visit * Reason Comments Medication Refill Encounter Details Date Type Department Care Team (Late st Contact Info) Description 04/12/2023 Refill [facility] [address] [place] [address] Nando Morris MD 30 [place] [address] Medication Refill Social History Tobacco Use Types [...] Pulmonary, Allergy and Critical Care Medicine 10 [facility] [place] [address] Dana Campo MD 10 [facility] 2nd [place] [address] [email or web address] documented as of this encounter Visit Diagnoses [...] documented as of this encounter Care Teams Foundry Helper Relationship Specialty Start Date End Date Melissa Castrejon PA [address] [place] [address] [email or web address] PCP - General Unknown Provider Specialty 06/01/22 Ethan Ty PA [address] [place] [address] PCP - General Physician Marble Polisher 04/13/24 01/07/25 Rosita Noble NP [address] [place] [address] PCP - General Nurse Practitioner 01/08/25 Jane Rabago MBBS [address] [place] [address] [email or web address] Primary Oncologist Medical Oncology 02/25/25 documented as of this encounter Additional Source Comments The information contained in this document represents components of the legal health record. It is not the complete legal health record.[facility]
--- OUTSIDE RECORDS SUMMARY | 2025-05-12 22:18 | XMS_ITS | Encounter Summary ---
Author Organization [facility] Address [address] [place] [address] Phone Care Team Providers Care Electronic Tech Name Role Phone Melissa Castrejon Primary Care Provider Ethan Ty Primary Care Provider [phone] Rosita Noble NP Primary Care Provider [phone] Jane Rabago Unavailable [phone] Encounter Details Date Type Department Care Team (Late st Contact Info) Description 01/20/2023 Procedure Pass [facility] Radiology [address] [place] [address] Social History Tobacco Use Types Packs/Day Years [...] 7:14 PM EDT Serge Barrera, RN * [place] Suicide Severity Rating Scale (Screener/Recent Self-Report) Question [...] Description 08/30/2025 8:20 AM EST Office Visit [facility] Pulmonary, Allergy and Critical Care Medicine 10 [place] [address] Dana Campo MD [address] [address] documented as of this encounter Visit Diagnoses [...] documented as of this encounter Care Teams Electronic Tech Relationship Specialty Start Date End Date Melissa Castrejon PA [address] [place] [address] [email or web address] PCP - General Unknown Provider Specialty 06/01/22 Ethan Ty PA [address] [place] [address] PCP - General Physician Medical Service Representative 04/13/24 01/07/25 Rosita Noble NP [address] [place] [address] PCP - General Nurse Practitioner 01/08/25 Jane Rabago MBBS [address] [place] [address] [email or web address] Primary Oncologist Medical Oncology 02/25/25 documented as of this encounter Additional Source Comments The information contained in this document represents components of the legal health record. It is not the complete legal health record.[facility]
--- OUTSIDE RECORDS SUMMARY | 2025-05-12 22:18 | XMS_ITS | Encounter Summary ---
Author Organization [facility] Address [address] [place] [address] Phone Care Team Providers Care Child Psychologist Name Role Phone Melissa Castrejon Primary Care Provider Ethan Ty Primary Care Provider [phone] Rosita Noble NP Primary Care Provider [phone] Jane Rabago Unavailable [phone] Reason for Visit * Reason Comments Medication Refill Encounter Details Date Type Department Care Team (Late st Contact Info) Description 08/02/2023 Refill [facility] [address] [place] [address] Nando Morris MD 30 [place] [address] Medication Refill Social History Tobacco Use Types [...] 9:07 PM EST Amanda Breaux RN * [place] Suicide Severity Rating Scale (Screener/Recent Self-Report) Question Answer Date of Assessment Author 1. Wish to be (Past 1 Month) No 024 9:07 PM Samuel Khan RN 2. Non-Specific Active Suici hernandez Thoughts (Past 1 Month) No 08/03/2023 9:07 PM Saumel Khan RN 6. Suicidal Behavior (Lifetime) No 9:07 PM Samuel Khan RN documented as of this encounter Plan of Treatment Upcoming Encounters Date Type Department Care Team (Late st Contact Info) Description 08/30/2025 8:20 AM EST Office Visit [facility] Pulmonary, Allergy and Critical Care Medicine [address] [place] [address] Dana Campo MD [address] [place] [address] [email or web address] documented as of this encounter Visit Diagnoses [...] documented as of this encounter Care Teams Child Psychologist Relationship Specialty Start Date End Date Melissa Castrejon PA [address] [place] [address] [email or web address] PCP - General Unknown Provider Specialty 06/01/22 Ethan Ty PA [address] [place] [address] PCP - General Physician Nutrition Specialist 04/13/24 01/07/25 Rosita Noble NP [address] [place] [address] PCP - General Nurse Practitioner 01/08/25 Jane Rabago MBBS [address] [place] [address] [email or web address] Primary Oncologist Medical Oncology 02/25/25 documented as of this encounter Additional Source Comments The information contained in this document represents components of the legal health record. It is not the complete legal health record.[facility]
--- OUTSIDE RECORDS SUMMARY | 2025-05-12 22:18 | XMS_ITS | Encounter Summary ---
Author Organization [facility] Address [address] [place] [address] Phone Care Team Providers Care Electrical Experimental Mechanic Name Role Phone Lynn Abad MD Primary Care Provider Nellie Morales PURCHASING ASSOCIATE Primary Care Provider Unknown, Unknown Primary Care Provider Melissa Ordonez Primary Care Provider [phone] Ethan Ty Primary Care Provider Rosita Noble PURCHASING ASSOCIATE Primary Care Provider [phone] Jane Rabago Unavailable [phone] Encounter Details Date Type Department Care Team (Late Contact Info) Description 12/24/2019 Procedure Pass [facility], Ct Scan - [address] [address] Social History Tobacco Use Types Packs/Day Years [...] Care Medicine [address] [place] [address] Dana Campo MD 10 [facility] 2nd [place] [address] [email or web address] documented as of this [...] documented as of this encounter Care Teams Electrical Experimental Mechanic Relationship Specialty Start Date End Date Lynn Abad MD PCP - General 05/09/17 09/05/21 Nellie Morales PURCHASING ASSOCIATE PCP - General Family Medicine 09/06/21 02/07/22 Unknown, Nilson, PCP - General 02/08/22 05/31/22 Melissa Castrejon PA 70 [place] [address] [email or web address] PCP - General Unknown Provider Specialty 06/01/22 Ethan Ty PA [address] [place] [address] PCP - General Physician Linseed Oil Boiler 04/13/24 01/07/25 Rosita Noble NP 70 [place] [address] PCP - General Nurse Practitioner 01/08/25 Jane Rabago MBBS [address] [place] [address] [email or web address] Primary Oncologist Medical Oncology 02/25/25 documented as of this encounter Additional Source Comments The information contained in this document represents components of the legal health record. It is not the complete legal health record.[facility]
--- OUTSIDE RECORDS SUMMARY | 2025-05-12 22:18 | XMS_ITS | Encounter Summary ---
Author Organization [facility] Address [address] [place] [address] Phone Care Team Providers Care Government Teacher Name Role Phone Melissa Castrejon Primary Care Provider [phone] Ethan Ty Primary Care Provider [phone] Rosita Noble NP Primary Care Provider [phone] Jane Rabago Unavailable [phone] Reason for Visit * Reason Comments Medication Refill Encounter Details Date Type Department Care Team (Late st Contact Info) Description 01/18/2023 Refill [facility] [address] [place] [address] Nando Morris MD 30 [place] [address] Medication Refill Social History Tobacco Use Types [...] 7:14 PM EDT Serge Barrera, RN * [place] Suicide Severity Rating Scale (Screener/Recent Self-Report) Question [...] Description 08/30/2025 8:20 AM EST Office Visit [facility] Pulmonary, Allergy and Critical Care Medicine [address] [place] [address] Dana Campo MD [address] [place] [address] documented as of this encounter Visit Diagnoses [...] documented as of this encounter Care Teams Government Teacher Relationship Specialty Start Date End Date Melissa Castrejon PA [address] [place] [address] [email or web address] PCP - General Unknown Provider Specialty 06/01/22 Ethan Ty PA [address] [place] [address] PCP - General Physician Manager Quantitative 04/13/24 01/07/25 Rosita Noble NP 70 [place] [address] PCP - General Nurse Practitioner 01/08/25 Jane Rabago MBBS [address] [place] [address] [email or web address] Primary Oncologist Medical Oncology 02/25/25 documented as of this encounter Additional Source Comments The information contained in this document represents components of the legal health record. It is not the complete legal health record.[facility]
--- OUTSIDE RECORDS SUMMARY | 2025-05-12 22:18 | XMS_ITS | Encounter Summary ---
Author Organization [facility] Address [address] [place] [address] Phone Care Team Providers Care Masking Machine Operator Name Role Phone Lynn Abad MD Primary Care Provider Nellie Morales COUNTY ENGINEER Primary Care Provider Unknown, Unknown Primary Care Provider Melissa Ordonez Primary Care Provider Ethan Ty Primary Care Provider [phone] Rosita Noble COUNTY ENGINEER Primary Care Provider Jane Rabago Unavailable Encounter Details Date Type Department Care Team (Late st Contact Info) Description 01/06/2021 Procedure Pass [facility], Ct Scan - [address] [address] Social History Tobacco Use Types Packs/Day Years [...] 10:04 PM EDT Mee Cee RN * [place] Suicide Severity Rating Scale (Screener/Recent Self-Report) Question [...] [facility] Pulmonary, Allergy and Critical Care Medicine [address] [place] [address] Dana Campo MD [address] [place] [address] [email or web address] documented as of this encounter Visit [...] documented as of this encounter Care Teams Masking Machine Operator Relationship Specialty Start Date End Date Lynn Abad MD PCP - General 05/09/17 09/05/21 Nellie Morales COUNTY ENGINEER PCP - General Family Medicine 09/06/21 02/07/22 Unknown, Nilson, PCP - General 02/08/22 05/31/22 Melissa Castrejon PA 70 [place] [address] [email or web address] PCP - General Unknown Provider Specialty 06/01/22 Ethan Ty PA [address] [place] [address] PCP - General Physician Longwall Headgate Operator 04/13/24 01/07/25 Rosita Noble NP 70 [place] [address] PCP - General Nurse Practitioner 01/08/25 Jane Rabago MBBS 30 [place] [address] Primary Oncologist Medical Oncology 02/25/25 documented as of this encounter Additional Source Comments The information contained in this document represents components of the legal health record. It is not the complete legal health record.[facility]
--- OUTSIDE RECORDS SUMMARY | 2025-05-12 22:18 | XMS_ITS | Encounter Summary ---
Author Organization [facility] Address [address] [place] [address] Phone Care Team Providers Care Paint Preparer Name Role Phone Melissa Castrejon Primary Care Provider Ethan Ty Primary Care Provider Rosita Noble NP Primary Care Provider [phone] Jane Rabago Unavailable [phone] Encounter Details Date Type Department Care Team (Late st Contact Info) Description 01/20/2023 Procedure Pass [facility] Radiology [address] [place] [address] Social History Tobacco Use Types Packs/Day Years [...] 7:14 PM EDT Serge Barrera, RN * [place] Suicide Severity Rating Scale (Screener/Recent Self-Report) Question Answer Date of Assessment Author 1. Wish to be (Past 1 Month) No 01/20/2023 7:14 PM EDT Serge Barrera, RN 2. Non-Specific Active Suici hernandez Thoughts (Past 1 Month) No 01/20/2023 7:14 PM EDT Yoel Barrera RN 6. Suicidal Behavior (Lifetime) No 7:14 PM EDT Segre Barrera, RN documented as of this encounter Plan of Treatment Upcoming Encounters Date Type Department Care Team (Late st Contact Info) Description 08/30/2025 8:20 AM EST Office Visit [facility] Pulmonary, Allergy and Critical Care Medicine 10 [place] [address] Dana Campo MD [address] [address] documented as of this encounter Visit Diagnoses [...] documented as of this encounter Care Teams Paint Preparer Relationship Specialty Start Date End Date Melissa Castrejon PA [address] [place] [address] [email or web address] PCP - General Unknown Provider Specialty 06/01/22 Ethan Ty PA [address] [place] [address] PCP - General Physician Seating Upholsterer 04/13/24 01/07/25 Rosita Noble NP [address] [place] [address] PCP - General Nurse Practitioner 01/08/25 Jane Rabago MBBS [address] [place] [address] [email or web address] Primary Oncologist Medical Oncology 02/25/25 documented as of this encounter Additional Source Comments The information contained in this document represents components of the legal health record. It is not the complete legal health record.[facility]
--- OUTSIDE RECORDS SUMMARY | 2025-05-12 22:18 | XMS_ITS | Encounter Summary ---
Author Organization [facility] Address [address] [place] [address] Phone Care Team Providers Care Relief Salesperson Name Role Phone Lynn Abad MD Primary Care Provider Nellie Morales SUPERINTENDENT OPERATIONS DIVISION Primary Care Provider [phone] Unknown, Unknown Primary Care Provider Melissa Ordonez Primary Care Provider [phone] Ethan Ty Primary Care Provider [phone] Rosita Noble SUPERINTENDENT OPERATIONS DIVISION Primary Care Provider [phone] Jane Rabago MBBS Unavailable [phone] Encounter Details Date Type Department Care Team (Late st Contact Info) Description 12/27/2017 Procedure Pass [facility] Admitting Dept Virtual Department [address] [place] [address] Social History Tobacco Use Types Packs/Day Years [...] Allergy and Critical Care Medicine 10 [facility] [place] [address] Dana Campo MD [address] [address] [email or web address] documented as of [...] documented as of this encounter Care Teams Relief Salesperson Relationship Specialty Start Date End Date Lynn Abad MD PCP - General 05/09/17 09/05/21 Nellie Morales NP PCP - General Family Medicine 09/06/21 02/07/22 Unknown, Nilson, PCP - General 02/08/22 05/31/22 Melissa Castrejon PA [address] [place] [address] [email or web address] PCP - General Unknown Provider Specialty 06/01/22 Ethan Ty PA [address] [place] [address] PCP - General Physician Cnc Operator 04/13/24 01/07/25 Rosita Noble NP [address] [place] [address] PCP - General Nurse Practitioner 01/08/25 Jane Rabago MBBS [address] [place] [address] [email or web address] Primary Oncologist Medical Oncology 02/25/25 documented as of this encounter Additional Source Comments The information contained in this document represents components of the legal health record. It is not the complete legal health record.[facility]
--- OUTSIDE RECORDS SUMMARY | 2025-05-12 22:18 | XMS_ITS | Encounter Summary ---
Author Organization [facility] Address [address] [facility] [address] [address] [address] [place] [address] Phone Care Team Providers Care Education Finance Processor Name Role Phone Rosita Noble NP Primary Care Provider [phone] Jane Rabago Unavailable [phone] Encounter Details Date Type Department Care Team (Late st Contact Info) Description 03/03/2025 Ancillary Orders [facility] General Surgical Care 15 [place] [address] Ethan Mcdermott, LICENSED FINAL EXPENSE AGENTS 15 [facility], 2nd [place] [address] [email or web address] Post-operative state (Primary Dx); S/P lumpectomy, right [...] [facility] Pulmonary, Allergy and Critical Care Medicine [address] [place] [address] [place] [address] Dana Campo MD [address] [address] [phone] (work) [email or web address] documented as of this encounter Results * [...] clinician's provided indication for this examination in [facility]: Infection; New skin dimpling/indentation; post lumpectomy [...] clinician's provided indication for this examination in [facility]:Infection; New skin dimpling/indentation; post lumpectomy with [...] seroma. No discrete drainablecollection. us Ethan Mcdermott LICENSED FINAL EXPENSE AGENTS IMG US CHEST Final Result documented in this encounter Visit Diagnoses Diagnosis S/P lumpectomy, right breast Post-operative state- Primary Other postprocedural status S/P lumpectomy, right breast documented in this encounter Care Teams Education Finance Processor Relationship Specialty Start Date End Date Rosita Noble NP [address] [place] [address] PCP - General Nurse Practitioner 01/08/25 Jane Rabago MBBS [address] [place] [address] [email or web address] Primary Oncologist Medical Oncology 02/25/25 documented as of this encounter Additional Source Comments The information contained in this document represents components of the legal health record. It is not the complete legal health record.[facility]
--- OUTSIDE RECORDS SUMMARY | 2025-05-12 22:18 | XMS_ITS | Encounter Summary ---
Author Organization [facility] Address [address] [place] [address] Phone Care Team Providers Care Treating Inspector Name Role Phone Lynn Abad MD Primary Care Provider [phone] Nellie Morales BAT BOY/GIRL Primary Care Provider [phone] Unknown, Unknown Primary Care Provider Melissa Ordonez Primary Care Provider [phone] Ethan Ty Primary Care Provider [phone] Rosita Noble BAT BOY/GIRL Primary Care Provider [phone] Jane Rabago MBBS Unavailable [phone] Encounter Details Date Type Department Care Team (Late st Contact Info) Description 11/27/2017 Procedure Pass [facility], Ct Scan - [address] [address] Social History Tobacco Use Types Packs/Day Years [...] Allergy and Critical Care Medicine [address] [facility] [address] [place] [address] Dana Campo MD 10 [facility]nd [facility] [place] [address] [email or web address] documented as of this encounter Visit Diagnoses [...] documented as of this encounter Care Teams Treating Inspector Relationship Specialty Start Date End Date Lynn Abad MD PCP - General 05/09/17 09/05/21 Nellie Morales, BAT BOY/GIRL PCP - General Family Medicine 09/06/21 02/07/22 Unknown, Nilson, PCP - General 02/08/22 05/31/22 Melissa Castrejon PA [address] [place] [address] [email or web address] PCP - General Unknown Provider Specialty 06/01/22 Ethan Ty PA [address] [place] [address] PCP - General Physician Riveting Machine Operator Tape Control 04/13/24 01/07/25 Rosita Noble NP [address] [place] [address] PCP - General Nurse Practitioner 01/08/25 Jane Rabago MBBS [address] [place] [address] [email or web address] Primary Oncologist Medical Oncology 02/25/25 documented as of this encounter Additional Source Comments The information contained in this document represents components of the legal health record. It is not the complete legal health record.[facility]
--- OUTSIDE RECORDS SUMMARY | 2025-05-12 22:18 | XMS_ITS | Encounter Summary ---
Author Organization [facility] Address [address] [place] [address] Phone Care Team Providers Care Poly Area Supervisor Name Role Phone Lynn Abad MD Primary Care Provider Nellie Morales PAVILION CUTTER Primary Care Provider Unknown, Unknown Primary Care Provider Melissa Ordonez Primary Care Provider Ethan Ty Primary Care Provider [phone] Rosita Noble PAVILION CUTTER Primary Care Provider [phone] Jane Rabago Unavailable Encounter Details Date Type Department Care Team (Late st Contact Info) Description 07/01/2019 Procedure Pass [facility], [address] [address] Social History Tobacco Use Types Packs/Day Years [...] Medicine [address] [place] [address] Dana Campo MD 10 [facility] 2nd [place] [address] [email or web address] documented as of this encounter Visit Diagnoses [...] documented as of this encounter Care Teams Poly Area Supervisor Relationship Specialty Start Date End Date Lynn Abad MD PCP - General 05/09/17 09/05/21 Nellie Morales PAVILION CUTTER PCP - General Family Medicine 09/06/21 02/07/22 Unknown, Nilson, PCP - General 02/08/22 05/31/22 Melissa Castrejon PA [address] [place] [address] [email or web address] PCP - General Unknown Provider Specialty 06/01/22 Ethan Ty PA [address] [place] [address] PCP - General Physician Learning Officer 04/13/24 01/07/25 Rosita Noble NP [address] [place] [address] PCP - General Nurse Practitioner 01/08/25 Jane Rabago MBBS [address] [place] [address] [email or web address] Primary Oncologist Medical Oncology 02/25/25 documented as of this encounter Additional Source Comments The information contained in this document represents components of the legal health record. It is not the complete legal health record.[facility]
--- OUTSIDE RECORDS SUMMARY | 2025-05-12 22:18 | XMS_ITS | Encounter Summary ---
Author Organization [facility] Address [address] [place] [address] Phone Care Team Providers Care Crozer Name Role Phone Lynn Abad MD Primary Care Provider Nellie Morales PRESCHOOL SPECIAL EDUCATION TEACHER Primary Care Provider Unknown, Unknown Primary Care Provider Melissa Ordonez Primary Care Provider Ethan Ty Primary Care Provider Rosita Noble PRESCHOOL SPECIAL EDUCATION TEACHER Primary Care Provider Jane RabagoBS Unavailable [phone] Reason for Referral * MRI/CAT Scan - Closed Specialty Diagnoses / Procedures Referred By Contac t Referred To Contact Radiology Diagnoses Elevated C-reactive protein (CRP) Flatulence Procedures CT Abdomen/Pelvis Betsy Maya PA-C Phone: tel: fax: mailto: Referral ID Status Reason Start Date Expiration Date Visits Re quested Visits Authorized [id number] Closed 10/30/2020 10/30/2021 1 1 Encounter Details Date Type Department Care Team (Latest Contact Info) Description 10/30/2020 Transcribe Orders [facility] Department 30 [place] [address] Betsy Maya PA-C [address] [place] [address] [email or web address] Elevated [...] [facility] Pulmonary, Allergy and Critical Care Medicine [address] [place] [address] Dana Campo MD [address] [place] [address] [email or web address] documented as of this encounter Results * [...] documented as of this encounter Care Teams Crozer Relationship Specialty Start Date End Date Lynn Abad MD [email or web address] PCP - General 05/09/17 09/05/21 Nellie Morales PRESCHOOL SPECIAL EDUCATION TEACHER PCP - General Family Medicine 09/06/21 02/07/22 Unknown, Unknown, PCP - General 02/08/22 05/31/22 Melissa Castrejon PA [address] [place] [address] [email or web address] PCP - General Unknown Provider Specialty 06/01/22 Ethan Ty PA [address] [place] [address] PCP - General Physician Riprap Man 04/13/24 01/07/25 Rosita Noble NP 70 [place] [address] PCP - General Nurse Practitioner 01/08/25 Jane Rabago MBBS [address] [place] [address] Primary Oncologist Medical Oncology 02/25/25 documented as of this encounter Additional Source Comments The information contained in this document represents components of the legal health record. It is not the complete legal health record.[facility]
--- OUTSIDE RECORDS SUMMARY | 2025-05-12 22:18 | XMS_ITS | Encounter Summary ---
Author Organization [facility] Address [address] [facility] [address] [place] [address] Phone Care Team Providers Care Ornament Stitcher Name Role Phone Melissa Castrejon Primary Care Provider Ethan Ty Primary Care Provider [phone] Rosita Noble NP Primary Care Provider [phone] Jane Rabago Unavailable [phone] Reason for Visit * Reason Comments Medication Refill Encounter Details Date Type Department Care Team (Late st Contact Info) Description 07/04/2023 Refill [facility] [address] [place] [address] Nando Morris MD 30 [place] [address] Medication Refill Social History Tobacco Use Types [...] Pulmonary, Allergy and Critical Care Medicine [address] [place] [address] Dana Campo MD 10 [facility] 2nd [place] [address] [email or web address] documented as of this encounter Visit Diagnoses [...] documented as of this encounter Care Teams Ornament Stitcher Relationship Specialty Start Date End Date Melissa Castrejon PA [address] [place] [address] [email or web address] PCP - General Unknown Provider Specialty 06/01/22 Ethan Ty PA [address] [place] [address] PCP - General Physician Medical Assistant Prn 04/13/24 01/07/25 Rosita Noble NP [address] [place] [address] PCP - General Nurse Practitioner 01/08/25 Jane Rabago MBBS [address] [place] [address] [email or web address] Primary Oncologist Medical Oncology 02/25/25 documented as of this encounter Additional Source Comments The information contained in this document represents components of the legal health record. It is not the complete legal health record.[facility]
--- OUTSIDE RECORDS SUMMARY | 2025-05-12 22:18 | XMS_ITS | Encounter Summary ---
Author Organization [facility] Address [address] [facility] [address] [place] [address] Phone Care Team Providers Care Plaque Maker Name Role Phone Melissa Castrejon Primary Care Provider Ethan Ty Primary Care Provider [phone] Rosita Noble NP Primary Care Provider [phone] Jane Rabago Unavailable [phone] Encounter Details Date Type Department Care Team (Late st Contact Info) Description 01/14/2023 Procedure Pass [facility], Ct Scan - [address] [address] Social History Tobacco Use Types Packs/Day Years [...] 9:18 PM EDT Karina Wall RN * [place] Suicide Severity Rating Scale (Screener/Recent Self-Report) Question [...] 1 Month) No 01/15/2023 9:18 PM EDT Kraina Wall RN 6. Suicidal Behavior (Lifetime) No 9:18 PM EDT Karina Wall RN documented as of this encounter Plan of Treatment Upcoming Encounters Date Type Department Care Team (Late st Contact Info) Description 08/30/2025 8:20 AM EST Office Visit [facility] Pulmonary, Allergy and Critical Care Medicine [address] [place] [address] Dana Campo MD [address] [place] [address] documented as of this encounter Visit Diagnoses [...] documented as of this encounter Care Teams Plaque Maker Relationship Specialty Start Date End Date Melissa Castrejon PA [address] [place] [address] [email or web address] PCP - General Unknown Provider Specialty 06/01/22 Ethan Ty PA [address] [place] [address] PCP - General Physician Housekeeping Room Attendant 04/13/24 01/07/25 Rosita Noble NP [address] [place] [address] PCP - General Nurse Practitioner 01/08/25 Jane Rabago MBBS [address] [place] [address] [email or web address] Primary Oncologist Medical Oncology 02/25/25 documented as of this encounter Additional Source Comments The information contained in this document represents components of the legal health record. It is not the complete legal health record.[facility]
--- OUTSIDE RECORDS SUMMARY | 2025-05-12 22:18 | XMS_ITS | Encounter Summary ---
Author Organization [facility] Address [address] [facility] [address] [place] [address] Phone Care Team Providers Care Specialty Trimmer Name Role Phone Lynn Abad MD Primary Care Provider Nellie Morales ESTIMATE CLERK Primary Care Provider Unknown, Unknown Primary Care Provider Melissa Ordonez Primary Care Provider [phone] Ethan Ty Primary Care Provider [phone] Rosita Noble ESTIMATE CLERK Primary Care Provider [phone] Jane RabagoBS Unavailable [phone] Reason for Referral * MRI/CAT Scan - Closed Specialty Diagnoses / Procedures Referred By Contac t Referred To Contact Radiology Diagnoses Anemia, unspecified type Diarrhea, unspecified type Nausea Procedures CT Abdomen/Pelvis Enterography Betsy Maya PA-C Phone: tel: fax: mailto: Referral ID Status Reason Start Date Expiration Date Visits Re quested Visits Authorized [id number] Closed 11/27/2017 11/27/2018 1 1 Encounter Details Date Type Department Care Team (Late st Contact Info) Description 11/27/2017 Ancillary Orders Virtual Department [address] [place] [address] Betsy Maya PA-C [address] [place] [address] Anemia, unspecified type; Diarrhea, unspecified type; Nausea [...] Upcoming Encounters Date Type Department Care Team ([facility] st Contact Info) Description 08/30/2025 8:20 AM EST Office Visit [facility] Pulmonary, Allergy and Critical Care Medicine [address] [place] [address] Dana Campo MD [address] [place] [address] documented as of this encounter Results * CT ABDOMEN/PELVIS (ENTEROGRAPHY) WITH CONTRAST (12/11/2017 11:05 AM EDT) Anatomical Region Laterality Modality Abdomen, Pelvis Computed Tomogra phy 12/11/2017 12:1 7 PM EDT Impressions 12/11/2017 6:46 PM EDT No inflammatory bowel changes. No obstruction. Colonic and jejunal diverticulosis. Chronic hepatic steatosis. TOTAL CTDIvol: 17.00 mGy POS - [id number] Edited by: Joseline Barry on 12/11/2017 1:20 PM Narrative 12/11/2017 6:46 [...] documented as of this encounter Care Teams Specialty Trimmer Relationship Specialty Start Date End Date Lynn Abad MD PCP - General 05/09/17 09/05/21 Nellie Morales NP PCP - General Family Medicine 09/06/21 02/07/22 Unknown, NilsonMD PCP - General 02/08/22 05/31/22 Melissa Castrejon PA [address] [place] [address] [email or web address] PCP - General Unknown Provider Specialty 06/01/22 Ethan Ty PA [address] [place] [address] PCP - General Physician Communications Program Manager 04/13/24 01/07/25 Rosita Noble NP [address] [place] [address] PCP - General Nurse Practitioner 01/08/25 Jane Rabago MBBS [address] [place] [address] [email or web address] Primary Oncologist Medical Oncology 02/25/25 documented as of this encounter Additional Source Comments The information contained in this document represents components of the legal health record. It is not the complete legal health record.[facility]
--- OUTSIDE RECORDS SUMMARY | 2025-05-12 22:18 | XMS_ITS | Encounter Summary ---
Author Organization [facility] Address [address] [facility] [address] [place] [address] Phone Care Team Providers Care Dial Equipment Engineer Name Role Phone Lynn Abad MD Primary Care Provider Nellie Morales WIRE ROPE FABRICATION SUPERVISOR Primary Care Provider Unknown, Unknown Primary Care Provider Melissa Ordonez Primary Care Provider Ethan Ty Primary Care Provider [phone] Rosita Noble WIRE ROPE FABRICATION SUPERVISOR Primary Care Provider [phone] Jane RabagoBS Unavailable [phone] Encounter Details Date Type Department Care Team (Latest Contact Info) Description 11/29/2017 Transcribe Orders [facility] Laboratory [address] [place] [address] Betsy Maya PA-C [address] [place] [address] Diarrhea, unspecified type (Primary Dx); Anemia, unspecified [...] Pulmonary, Allergy and Critical Care Medicine [address] [place] [address] Dana Campo MD [address] [facility] 2nd [place] [address] [email or web address] documented as of this encounter Results * Vitamin B12 (11/29/2017 8:21 AM EDT) [facility] VITAMIN B12 546 232 - 1,245 pg/mL [facility] Comment:The reference range had been changed on November 01, 2017 from 243 - 894pg/mL to 232 - 1245 pg/mL. Blood 11/29/2017 8:21 AM EDT 11/29/2017 8:24 AM EDT us Betsy Maya PA-C LAB BLOOD ORDERABLES Final Resu lt Performing Organization Address City/[facility]/ZIP Co de Phone Number [address] [address] * Folate (11/29/2017 8:21 AM EDT) [facility] FOLIC ACID 16.7 4.2 - 19.9 ng/mL [facility] Blood 11/29/2017 8:21 AM EDT 11/29/2017 8:24 AM EDT us Betsy Maya PA-C LAB BLOOD ORDERABLES Final Resu lt Performing Organization Address City/[facility]/ZIP Co de Phone Number [address] [address] * Ferritin (11/29/2017 8:21 AM EDT) [facility] FERRITIN 40 13 - 150 ug/L [facility] Blood 11/29/2017 8:21 AM EDT 11/29/2017 8:24 AM EDT us Betsy Maya PA-C LAB BLOOD ORDERABLES Final Resu lt Performing Organization Address [facility] Co de Phone Number [address] [address] * Iron and iron binding capacity (11/29/2017 8:21 AM EDT) IRON 71 30 - 160 ug/dL [facility] IRON BINDING CAPACITY 243 228 - 428 ug/dL [facility] TRANSFERRIN SATURAT. 29 15 - 50 % [facility] Blood 11/29/2017 8:21 AM EDT 11/29/2017 8:24 AM EDT us Betsy Maya PA-C LAB BLOOD ORDERABLES Final Resu lt Performing Organization Address [facility]/ZIP Co de Phone Number [address] [address] * (ABNORMAL) C-Reactive Protein (11/29/2017 8:21 AM EDT) C REACTIVE PROTEIN 2.2(H) 0 - 0.5 mg/L [facility] Blood 11/29/2017 8:21 AM EDT 11/29/2017 8:24 AM EDT us Betsy Maya PA-C LAB BLOOD ORDERABLES Final Resu lt Performing Organization Address [facility]/ZIP Co de Phone Number [address] [address] * (ABNORMAL) CBC (11/29/2017 8:21 AM EDT) WBC 10.02 3.40 - 11.20 K/uL [facility] RBC 4.30 3.80 - 4.80 M/uL [facility] HGB 12.2 12.0 - 15.0 g/dL [facility] HCT 37.0 36.0 - 46.0 % [facility] PLT 226 130 - 400 K/uL [facility] MCV 86.0 79.0 - 98.0 fL [facility] MCH 28.4 27.0 - 34.8 pg [facility] MCHC 33.0 31.5 - 36.0 g/dL [facility] RDW 13.3 10.8 - 14.6 % [facility] MPV 9.3(L) 9.4 - 12.4 [facility] NRBC 0.00 /100 WBCs [facility] ABSOLUTE NRBC 0.00 K/uL [facility] Blood 11/29/2017 8:21 AM EDT 11/29/2017 8:24 AM EDT Betsy Maya PA-C LAB BLOOD ORDERABLES Final Resu lt Performing Organization Address City/[facility]/ZIP Co de Phone Number [facility] [address] [place] [address] * Tissue transglutaminase IgA (11/29/2017 8:21 AM EDT) TTG IGA ANTIBODY <1.2 <4.0 (Negative) U/mL [facility] DPT OF LAB MED AND PAT+ Blood 11/29/2017 8:21 AM EDT 11/29/2017 8:25 AM EDT Betsy Maya PA-C LAB BLOOD ORDERABLES Final Resu lt [facility] DPT OF LAB MED AND PAT+ [address] [place] [address] documented in this encounter Visit Diagnoses Diagnosis [...] documented as of this encounter Care Teams Dial Equipment Engineer Relationship Specialty Start Date End Date Lynn Abad MD PCP - General 05/09/17 09/05/21 Nellie Morales NP PCP - General Family Medicine 09/06/21 02/07/22 Unknown, Nilson, PCP - General 02/08/22 05/31/22 Melissa Castrejon PA [address] [place] [address] [email or web address] PCP - General Unknown Provider Specialty 06/01/22 Ethan Ty PA [address] [place] [address] PCP - General Physician Flitch Hanger 04/13/24 01/07/25 Rosita Noble NP [address] [place] [address] PCP - General Nurse Practitioner 01/08/25 Jane Rabago MBBS [address] [place] [address] [email or web address] Primary Oncologist Medical Oncology 02/25/25 documented as of this encounter Additional Source Comments The information contained in this document represents components of the legal health record. It is not the complete legal health record.[facility]
--- OUTSIDE RECORDS SUMMARY | 2025-05-12 22:19 | XMS_ITS | Encounter Summary ---
Author Organization [facility] Address [address] [facility] [address] [place] [address] Phone Care Team Providers Care Investment Consultant Name Role Phone Lynn Abad MD Primary Care Provider [phone] Nellie Morales OCULAR PATHOLOGIST Primary Care Provider [phone] Unknown, Unknown Primary Care Provider Melissa Ordonez Primary Care Provider Ethan Ty Primary Care Provider [phone] Rosita Noble OCULAR PATHOLOGIST Primary Care Provider [phone] Jane Rabago Unavailable [phone] Encounter Details Date Type Department Care Team (Late st Contact Info) Description 04/13/2021 Procedure Pass [facility] [place] [facility], Ct Scan - [address] [address] Social History Tobacco Use Types Packs/Day Years [...] 9:56 AM EDT Reji Cisneros RN * [place] Suicide Severity Rating Scale (Screener/Recent Self-Report) Question [...] [facility] Pulmonary, Allergy and Critical Care Medicine [address] [place] [address] Dana Campo MD [address] [place] [address] [email or web address] documented as of this [...] documented as of this encounter Care Teams Investment Consultant Relationship Specialty Start Date End Date Lynn Abad MD PCP - General 05/09/17 09/05/21 Nellie Morales NP PCP - General Family Medicine 09/06/21 02/07/22 Unknown, Unknown, PCP - General 02/08/22 05/31/22 Melissa Castrejon PA [address] [place] [address] [email or web address] PCP - General Unknown Provider Specialty 06/01/22 Ethan Ty PA [address] [place] [address] PCP - General Physician Armed Security Professional 04/13/24 01/07/25 Rosita Noble NP [address] [place] [address] PCP - General Nurse Practitioner 01/08/25 Jane Rabago MBBS [address] [place] [address] [email or web address] Primary Oncologist Medical Oncology 02/25/25 documented as of this encounter Additional Source Comments The information contained in this document represents components of the legal health record. It is not the complete legal health record.[facility]
--- OUTSIDE RECORDS SUMMARY | 2025-05-12 22:19 | XMS_ITS | Encounter Summary ---
Author Organization [facility] Address [address] [facility] [address] [place] [address] Phone Care Team Providers Care Manager Engine Name Role Phone Lynn Abad MD Primary Care Provider Nellie Morales GLOBAL MARKETING OPERATIONS MANAGER Primary Care Provider [phone] Unknown, Unknown Primary Care Provider Melissa Ordonez Primary Care Provider [phone] Ethan Ty Primary Care Provider Rosita Noble GLOBAL MARKETING OPERATIONS MANAGER Primary Care Provider [phone] Jane Rabago MBBS Unavailable Encounter Details Date Type Department Care Team (Latest Contact Info) Description 06/10/2019 Transcribe Orders [facility] Laboratory [address] [place], [place] [id number] Christopher Deleon MD [address] [place] [address] Mood disorder due to known physiological condition [...] Critical Care Medicine [address] [place] [address] Dana Campo MD 10 [facility] 2nd [place] [address] documented as of this encounter Procedures Procedure Name Priority Date/Time Associated Diagnosis Comments CARBAMAZEPINE (TEGRETOL) LEVEL Routine 06/10/2019 8:09 AM EST 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 documented in this encounter Results * CARBAMAZEPINE (TEGRETOL) LEVEL (06/10/2019 8:09 AM EST) CARBAMAZEPINE 10.0 8.0 - 12.0 ug/mL [facility] Blood 06/10/2019 8:09 AM EST 06/10/2019 8:12 AM EST Christopher Deleon MD LAB BLOOD ORDERABLES Final Result [facility] [address] [place] [address] documented in this encounter Visit Diagnoses Diagnosis [...] as of this encounter Care Teams Manager Engine Relationship Specialty Start Date End Date Lynn Abad MD [email or web address] PCP - General 05/09/17 09/05/21 Nellie Morales NP PCP - General Family Medicine 09/06/21 02/07/22 Nilson, Nilson, PCP - General 02/08/22 05/31/22 Melissa Castrejon PA [address] [place] [address] [email or web address] PCP - General Unknown Provider Specialty 06/01/22 Ethan Ty PA [address] [place] [address] PCP - General Physician Pickle Pumper 04/13/24 01/07/25 Rosita Noble NP [address] [place] [address] PCP - General Nurse Practitioner 01/08/25 Jane Rabago MBBS [address] [place] [address] [email or web address] Primary Oncologist Medical Oncology 02/25/25 documented as of this encounter Additional Source Comments The information contained in this document represents components of the legal health record. It is not the complete legal health record.[facility]
--- OUTSIDE RECORDS SUMMARY | 2025-05-12 22:19 | XMS_ITS | Encounter Summary ---
Author Organization [facility] Address [address] [facility] [address] [place] [address] Phone Care Team Providers Care Director Of Quality Name Role Phone Ethan Ty Primary Care Provider [phone] Rosita Noble NP Primary Care Provider [phone] Jane Rabago Unavailable [phone] Encounter Details Date Type Department Care Team (Latest Contact Info) Description 05/13/2024 Transcribe Orders [facility] Laboratory [address] 2nd [address] [place], [place] [id number] Betsy Maya PA-C [address] [place] [address] [email or web address] Anemia, unspecified type (Primary Dx); Gastroesophageal reflux [...] CD Pulmonary, Allergy and Critical Care Medicine [address] [place] [address] Dana Campo MD [address] [place] [address] [email or web address] documented as of this encounter Results * Vitamin B12 (05/13/2024 2:39 PM EDT) VITAMIN B12 598 232 - 1,245 pg/mL [facility] Blood 05/13/2024 2:39 PM EDT 05/13/2024 2:43 PM EDT us Betsy Maya PA-C LAB BLOOD ORDERABLES Final Resu lt [facility] [address] [place] [address] * Ferritin (05/13/2024 2:39 PM EDT) FERRITIN 44 13 - 150 ug/L [facility] Blood 05/13/2024 2:39 PM EDT 05/13/2024 2:43 PM EDT us Betsy Maya PA-C LAB BLOOD ORDERABLES Final Resu lt Performing Organization Address [facility]/ZIP Co de Phone Number [address] [address] * Folate (05/13/2024 2:39 PM EDT) Pathologist [facility] FOLIC ACID 15.9 4.2 - 19.9 ng/mL [facility] Blood 05/13/2024 2:39 PM EDT 05/13/2024 2:43 PM EDT us Betsy Maya PA-C LAB BLOOD ORDERABLES Final Resu lt Performing Organization Address [facility]/ZIP Co de Phone Number [address] [address] * TSH (05/13/2024 2:39 PM EDT) TSH 1.68 0.27 - 4.20 uIU/mL [facility] Blood 05/13/2024 2:39 PM EDT 05/13/2024 2:43 PM EDT us Betsy Maya PA-C LAB BLOOD ORDERABLES Final Resu lt Performing Organization Address [facility] Co de Phone Number [address] [address] * Lipase (05/13/2024 2:39 PM EDT) LIPASE 17 16 - 63 U/L [facility] Blood 05/13/2024 2:39 PM EDT 05/13/2024 2:43 PM EDT Betsy Maya PA-C LAB BLOOD ORDERABLES Final Resu lt [address] [address] * (ABNORMAL) Comprehensive metabolic panel (05/13/2024 2:39 PM EDT) SODIUM 139 133 - 146 mmol/L [facility] POTASSIUM 3.8 3.3 - 5.1 mmol/L [facility] CHLORIDE 101 96 - 108 mmol/L [facility] CO2 25 21 - 35 mmol/L [facility] BUN 9 6 - 19 mg/dL [facility] CREATININE 0.50 0.5 - 1.5 mg/dL [facility] GLUCOSE 108(H) 70 - 99 mg/dL [facility] ALBUMIN 4.1 3.9 - 4.8 g/dL [facility] TOTAL PROTEIN 7.5 6.5 - 8.0 g/dL [facility] CALCIUM 8.9 8.4 - 10.3 mg/dL [facility] ALKALINE PHOSPHATASE 100 39 - 117 U/L [facility] TOTAL BILIRUBIN <0.2 0.0 - 1.2 mg/dL [facility] AST 17 0 - 37 U/L [facility] ALT 9 0 - 40 U/L [facility] GLOBULIN 3.4 1 - 4.8 g/dL [facility] EGFR 113 >59 mL/min/1.7 3m2 [facility] Comment:Estimated glomerular filtration rate calculated using the CKD-EPI refit equation. ANION GAP 17 10 - 20 mmol/L [facility] Blood 05/13/2024 2:39 PM EDT 05/13/2024 2:43 PM EDT us Betsy Maya PA-C LAB BLOOD ORDERABLES Final Resu lt [address] [address] * (ABNORMAL) CBC (05/13/2024 2:39 PM EDT) WBC 7.14 4.00 - 11.00 K/uL [facility] RBC 4.77 4.00 - 5.20 M/uL [facility] HGB 12.4 12.0 - 16.0 g/dL [facility] HCT 39.5 36.0 - 46.0 % [facility] PLT 303 150 - 450 K/uL [facility] MCV 82.8 80.0 - 100.0 fL [facility] MCH 26.0(L) 27.0 - 31.0 pg [facility] MCHC 31.4(L) 32.0 - 36.0 g/dL [facility] RDW 15.8(H) 11.5 - 14.5 % [facility] MPV 9.1 8.4 - 12.0 fl [facility] NRBC 0.00 0.00 /100 WBCs [facility] ABSOLUTE NRBC 0.00 0.00 K/uL [facility] Blood 05/13/2024 2:39 PM EDT 05/13/2024 2:43 PM EDT us Betsy Maya PA-C LAB BLOOD ORDERABLES Final Resu lt [facility] [address] [place] [address] * Tissue transglutaminase IgA (05/13/2024 2:39 PM EDT) TTG IGA ANTIBODY <1.2 <4.0 (Negative) U/mL [facility] Blood 05/13/2024 2:39 PM EDT 05/13/2024 2:42 PM EDT Betsy Maya PA-C LAB BLOOD ORDERABLES Final Resu lt [facility] [address] [place] [address] documented in this encounter Visit Diagnoses Diagnosis Anemia, unspecified type- Primary Gastroesophageal reflux disease, unspecified whether esophagitis present Constipation, unspecified constipation type Fatigue, unspecified type documented in this encounter Additional Health Concerns Infection Onset Date Last Indicated Resolved Time CoV-Risk 07/27/2024 08/08/2024 08/19/2024 1:21 AM EST documented as of this encounter Care Teams Director Of Quality Relationship Specialty Start Date End Date Ethan Ty PA [address] [place] [address] PCP - General Physician Care Aide 04/13/24 01/07/25 Rosita Noble NP [address] [place] [address] PCP - General Nurse Practitioner 01/08/25 Jane Rabago MBBS [address] [place] [address] [email or web address] Primary Oncologist Medical Oncology 02/25/25 documented as of this encounter Additional Source Comments The information contained in this document represents components of the legal health record. It is not the complete legal health record.[facility]
--- OUTSIDE RECORDS SUMMARY | 2025-05-12 22:19 | XMS_ITS | Data Portability ---
Author Organization [place] - [facility], Allergy Address [address] [address] Assessment No assessment recorded. Plan of Treatment [...] ation record ed. [email or web address] Not Available 15:15:28 03/10/20 24 04/19/2020 audio gram No observ ation record ed. [email or web address] Not Available 15:15:34 Result Notes None recorded. Problems Name Problem SNOMED Code Status Onset Date Resolution Date Notes Provider Name and Address Organization Details Recorded Time Otalgia of left ear 7871631325 Active 2018 Otalgia, left ear; Note: Date Diagnosed : 09/18/2018 11:32 AM (H92.02) Not Available [facility] 4 02:50:02 Sensorine ural hearing loss of bilateral ears 105429941 Active 2018 Sensorine ural hearing loss, bilateral ; Note: Date Diagnosed : 09/18/2018 12:33 PM (H90.3) Not Available [facility] 4 02:50:02 Pain of left temporoma ndibular joint [id number] 921930 Active 2018 Arthralgi a of left temporoma ndibular joint; Note: Date Diagnosed : 10/02/2018 4:27 PM (M26.622) Not Available [facility] 4 02:50:00 Problem Notes None recorded. Procedures Surgical History Date Name Laterality Status Provider Name and Address Organization Details Recorded Time 12/13/19 Comp Audio with Tymps - 31996 & 01106 completed JAQUELIN MOSES, [address], [address] [place] [facility] 12/13/2023 14:23:06 Remove tonsils and adenoids completed Gaby Stahl [place] - [facility] 12/13/2023 13:45:09 Appendectomy completed Gaby Stahl [place] [facility] 12/13/2023 13:45:16 procedure on brain completed Gaby Stahl [place] [facility] 12/13/2023 13:45:24 Imaging Results None recorded. Procedure Notes None recorded. Medical Equipment None Reported. Allergies Allergen ID Allergen Name Allergen Category Reaction Reaction Severity Criticality Documentation Date Start Date Code Code System Note Provider Name and Address Organization Details Recorded Time 384435 Product containin g benzodiaz epine (product) medicatio n other Not available Not available 12/03/2023 00175 007 SNOMED React ion: unkno wn, unspe cifie d;; Not Available [facility] 4 01:12:33 014271 Bactrim medicatio n other Not available Not available 12/03/2023 34288 9 RxNorm React ion: unkno wn, unspe cifie d;; Not Available [facility] 4 01:12:34 872458 Valium medicatio n other Not available Not available 12/03/2023 59164 2 RxNorm React ion: unkno wn, unspe cifie d;; Not Available [facility] 4 01:12:36 Medications Name Sig Start Date Stop Date Status Note LastModified by Organization Details LastModified Time hydroxyzi ne pamoate 100 mg capsule active Medicati on ID: 280465 B rand Name: hydroxyz ine pamoate Send [...] oral powder 2018 active Medicati on ID: 651161 B rand Name: Miralax Send Method: E-Prescr ibed Sub s Allowed: subs OK Medic ationGen ericName : Miralax Not Available Not Available Not Available clonidine HCl 0.1 mg tablet active Medicati on ID: 073099 B rand Name: clonidin e HCl Send [...] 1 mg capsule active Medicati on ID: 427502 B rand Name: prazosin Send Method: E-Prescr [...] 0.3 mg tablet active Medicati on ID: 968694 B rand Name: clonidin e HCl Send Method: E-Prescr ibed Sub s Allowed: subs OK Medic ationGen ericName : clonidin e HCl Not Available Not Available Not Available gabapenti n 400 mg capsule active Medicati on ID: 167612 B rand Name: gabapent in Send Method: [...] for inhalatio n active Medicati on ID: 776984 B rand Name: Advair Diskus S end Method: E-Prescr ibed Sub s Allowed: subs OK Medic ationGen ericName : Advair Diskus Not Available Not Available Not Available hydroxyzi ne HCl 50 mg tablet active Medicati on ID: 566945 B rand Name: hydroxyz ine HCl Send [...] disintegr ating tablet active Medicati on ID: 933432 B rand Name: ondarakeshet edel Send Method: E-Prescr ibed Sub s Allowed: subs OK Medic ationGen ericName : ondanset edel Not Available Not Available Not Available carbamaze pine ER 400 mg tablet,ex tended release,1 2 hr active Not Available Not Available Not Available prazosin 5 mg capsule active Not Available Not Available Not Available trazodone 100 mg tablet active Medicati on ID: 928778 B rand Name: trazodon e Send Method: [...] % topical cream active Medicati on ID: 694773 B rand Name: clotrima zole-bet amethaso ne [...] mg tablet 2018 active Medicati on ID: 998648 D uration Value: 7 Brand Name: ibuprofe n Send Method: E-Prescr ibed Sub s Allowed: subs OK Medic ationGen ericName : ibuprofe n Not Available Not Available Not Available docusate sodium 100 mg capsule active Not Available Not Available Not Available omeprazol e 20 mg capsule,d elayed release 2018 active Medicati on ID: 575713 D uration Value: 28 Brand Name: omeprazo le Send Method: E-Prescr ibed Sub s Allowed: subs OK Medic ationGen ericName : omeprazo le Not Available Not Available Not Available Dairy-Aid 3,000 unit tablet active Not Available Not Available Not Available hydroxyzi ne HCl 25 mg tablet active Medicati on ID: 358456 B rand Name: hydroxyz ine HCl Send Method: E-Prescr ibed Sub s Allowed: subs OK Medic ationGen ericName : hydroxyz ine HCl Not Available Not Available Not Available ammonium lactate 12 % topical cream active Not Available Not Available Not Available Culturell e 10 billion cell capsule 2018 active Medicati on ID: 994787 B rand Name: Culturel le Send Method: E-Prescr ibed Sub s Allowed: subs OK Medic ationGen ericName : Culturel le Not Available Not Available Not Available piroxicam 10 mg capsule active Not Available Not Available Not Available mupirocin 2 % topical ointment active Not Available Not Available Not Available gabapenti n 100 mg capsule active Medicati on ID: 314208 B rand Name: gabapent in Send Method: E-Prescr ibed Sub s Allowed: subs OK Medic ationGen ericName : gabapent in Not Available Not Available Not Available ibuprofen 600 mg tablet 12/12 completed Medicati on ID: [id number] B rand Name: ibuprofe n Send Method: E-Prescr ibed Sub s Allowed: subs OK Medic ationGen ericName : ibuprofe n Medica tion ID: [id number] B rand Name: ibuprofe n Send Method: E-Prescr ibed Sub s Allowed: subs OK Medic ationGen ericName : ibuprofe n Not Available Not Available Not Available ferrous sulfate 325 mg (65 mg iron) tablet,de layed release 2018 active Medicati on ID: 456006 B rand Name: ferrous sulfate Send Method: E-Prescr ibed Sub s Allowed: subs OK Medic ationGen ericName : ferrous sulfate Not Available Not Available Not Available ketoconaz ole 2 % topical cream 2018 active Medicati on ID: 304889 D uration Value: 30 Brand Name: ketocona zole Sen d Method: E-Prescr ibed Sub s Allowed: subs OK Medic ationGen ericName : ketocona zole Not Available Not Available Not Available cefdinir 300 mg capsule 12/12 completed Medicati on ID: 425977 D uration Value: 7 Brand Name: cefdinir Send Method: E-Prescr ibed Sub s Allowed: subs OK Medic ationGen ericName : cefdinir Medicat ion ID: [id number] D uration Value: 7 Brand Name: cefdinir [...] 2 mg capsule active Medicati on ID: 245730 B rand Name: prazosin Send Method: E-Prescr [...] pine ER 100 mg capsule,e xtended release [id number] r 2018 active Medicati on ID: 938063 D uration Value: 7 Brand Name: carbamaz epine Se nd Method: E-Prescr ibed Sub s Allowed: subs OK Medic ationGen ericName : carbamaz epine Not Available Not Available Not Available carbamaze pine ER 300 mg capsule,e xtended release [id number] r 12/12 completed Not Available Not Available [...] HFA aerosol inhaler active Medicati on ID: 927218 B rand Name: Symbicor t Send Method: [...] active Not Available Not Available Not Available Fadia DM 20 mg-400 mg tablet 2018 active Medicati on ID: 518094 B rand Name: Fadia DM Send Method: E-Prescr ibed Sub s Allowed: subs OK Medic ationGen ericName : Tussin DM Not Available Not Available Not Available Anoro Ellipta 62.5 mcg-25 mcg/actua tion powder for inhalatio n INHALE 1 PUFF DAILY active Not Available Not Available No t Available Incruse Ellipta 62.5 mcg/actua tion powder for inhalatio n active Medicati on ID: 331329 B rand Name: Incruse Ellipta Send Method: E-Prescr ibed Sub s Allowed: subs OK Medic ationGen ericName : Incruse Ellipta Not Available Not Available Not Available Spiriva Respimat 1.25 mcg/actua tion solution for inhalatio n active Medicati on ID: 550902 B rand Name: Spiriva Respimat Send Method: [...] Reported. Medical History Condition Response Anxiety Y Sleep Disorder Y GERD/Reflux Y Glaucoma Y Gynecological HistoryNo gynecological history recorded. Obstetrics History GPAL:G 0 P 0 0 0 0 Past Encounters Encounter ID Performer Location Encounter Start Date Encounter Closed Date Diagnosis/Indication Diagnosis SNOMED-CT Code Diagnosis ICD10 Code Diagnosis IMO Codes Diagnosis Note [id number] SUDHAKAR HAM MD [facility] of [address] [address] 12/13/2023 13:15:07 12/13/2023 16:04:41 Sensorineural hearing loss of bilateral ears [id number] H90.3 53-year-ol d female presents for hearing [...] ID Guarantor Name 12/19/2023 2 MEDICARE B-[place]: [employer] Arpita Calix [id number] Arpita Mora Calix 12/13/2023 3 [place] [facility] Arpita Calix [id number] Arpita Mora Yogi 12/19/2023 1 [facility] - DOS ON OR AFTER 2022 - MEDICARE ADVANTAGE [place] & [place] (MEDICARE REPLACEMENT/AD VANTAGE - PPO) Arpita Calix [id number] Arpita Mora Calix Notes Date Note Type Note Provider Name and Address Organization Details Recorded Time 12/13/2023 text/html ROS as noted in the HPI 53 yo F with hearing loss. Previously seen March 2020 with normal hearing. Recently out of the hospital for mental health concerns. Did have a fall. Has had several concussions. CT October 2022 at [facility] no acute pathology. Normal mastoids. SUDHAKAR HAM MD [address] [place] [address], [phone], [facility] - [facility] 12/13/2023 15:06:11 OBGyn Episode No OBEpisode recorded.
--- OUTSIDE RECORDS SUMMARY | 2025-05-12 22:19 | XMS_ITS | Encounter Summary ---
Author Organization [facility] Address [address] [facility] [address] [place] [address] Phone Care Team Providers Care Pipe Joints Supervisor Name Role Phone Lynn Abad MD Primary Care Provider Nellie Morales ASSEMBLYMAN OR WOMAN Primary Care Provider [phone] Unknown, Unknown Primary Care Provider Melissa Ordonez Primary Care Provider Ethan Ty Primary Care Provider Rosita Noble ASSEMBLYMAN OR WOMAN Primary Care Provider Jane RabagoBS Unavailable [phone] Reason for Visit * Reason Comments Medication Refill Encounter Details Date Type Department Care Team (Late st Contact Info) Description 07/06/2021 Refill [facility] [address] [place] [address] Nando Morris MD [address] [place] [address] Medication Refill Social History Tobacco Use Types [...] Pulmonary, Allergy and Critical Care Medicine [address] [facility] [place] [address] Dana Campo MD [address] [place] [address] [email or web address] documented as of this encounter Visit Diagnoses [...] documented as of this encounter Care Teams Pipe Joints Supervisor Relationship Specialty Start Date End Date Lynn Abad MD [email or web address] PCP - General 05/09/17 09/05/21 Nellie Morales, ASSEMBLYMAN OR WOMAN PCP - General Family Medicine 09/06/21 02/07/22 Unknown, Nilson, PCP - General 02/08/22 05/31/22 Melissa Castrejon PA [address] [place] [address] [email or web address] PCP - General Unknown Provider Specialty 06/01/22 Ethan Ty PA [address] [place] [address] PCP - General Physician Gas Processing Plant Operator 04/13/24 01/07/25 Rosita Noble NP [address] [place] [address] PCP - General Nurse Practitioner 01/08/25 Jane Rabago MBBS [address] [place] [address] [email or web address] Primary Oncologist Medical Oncology 02/25/25 documented as of this encounter Additional Source Comments The information contained in this document represents components of the legal health record. It is not the complete legal health record.[facility]
--- OUTSIDE RECORDS SUMMARY | 2025-05-12 22:19 | XMS_ITS | Encounter Summary ---
Author Organization [facility] Address [address] [address] [place] [address] Phone Care Team Providers Care Gymnastics Instructor Name Role Phone Lynn Abad MD Primary Care Provider Nellie Morales MEDICINE ASSISTANT Primary Care Provider [phone] Unknown, Unknown Primary Care Provider Melissa Ordonez Primary Care Provider Ethan Ty Primary Care Provider Rosita Noble MEDICINE ASSISTANT Primary Care Provider [phone] Jane Rabago Unavailable Encounter Details Date Type Department Care Team (Late st Contact Info) Description 04/13/2021 Procedure Pass [employer], Ct Scan - [address] [address] Social History Tobacco Use Types Packs/Day Years [...] 9:56 AM EDT Reji Cisneros RN * [place] Suicide Severity Rating Scale (Screener/Recent Self-Report) Question [...] [facility] Pulmonary, Allergy and Critical Care Medicine [address] [place] [address] Dana Campo MD [address] [place] [address] [email or web address] documented as of this encounter Visit [...] documented as of this encounter Care Teams Gymnastics Instructor Relationship Specialty Start Date End Date Lynn Abad MD PCP - General 05/09/17 09/05/21 Nellie Morales NP PCP - General Family Medicine 09/06/21 02/07/22 Unknown, Unknown, PCP - General 02/08/22 05/31/22 Melissa Castrejon PA [address] [place] [address] [email or web address] PCP - General Unknown Provider Specialty 06/01/22 Ethan Ty PA [address] [place] [address] PCP - General Physician Cathead Operator 04/13/24 01/07/25 Rosita Noble NP [address] [place] [address] PCP - General Nurse Practitioner 01/08/25 Jane Rabago MBBS [address] [place] [address] [email or web address] Primary Oncologist Medical Oncology 02/25/25 documented as of this encounter Additional Source Comments The information contained in this document represents components of the legal health record. It is not the complete legal health record.[facility]
--- OUTSIDE RECORDS SUMMARY | 2025-05-12 22:19 | XMS_ITS | Encounter Summary ---
Author Organization [facility] Address [address] [facility] [address] [place] [address] Phone Care Team Providers Care Compliance Assistant Name Role Phone Nellie Morales COOKING INSTRUCTOR Primary Care Provider Unknown, Unknown Primary Care Provider Melissa Ordonez Primary Care Provider [phone] Ethan Ty Primary Care Provider [phone] Rosita Noble COOKING INSTRUCTOR Primary Care Provider Jane Rabago Unavailable [phone] Encounter Details Date Type Department Care Team (Late st Contact Info) Description 10/19/2021 Ancillary Orders [facility],Outside Imaging [address] [place], [place] [phone] System, Provider Not In, [place] [address] Social History Tobacco Use Types Packs/Day Years [...] 5:34 PM EDT Eloisa Franklin RN * [place] Suicide Severity Rating Scale (Screener/Recent Self-Report) Question [...] CD Pulmonary, Allergy and Critical Care Medicine [address] [place] [address] Dana Campo MD [address] [place] [address] documented as of this encounter Results * [...] documented as of this encounter Care Teams Compliance Assistant Relationship Specialty Start Date End Date Nellie Morales NP PCP - General Family Medicine 09/06/21 02/07/22 Unknown, Unknown, PCP - General 02/08/22 05/31/22 Melissa Castrejon PA [address] [place] [address] [email or web address] PCP - General Unknown Provider Specialty 06/01/22 Ethan Ty PA [address] [place] [address] PCP - General Physician Toe Pounder 04/13/24 01/07/25 Rosita Noble NP [address] [place] [address] PCP - General Nurse Practitioner 01/08/25 Jane Rabago MBBS [address] [place] [address] [email or web address] Primary Oncologist Medical Oncology 02/25/25 documented as of this encounter Additional Source Comments The information contained in this document represents components of the legal health record. It is not the complete legal health record.[facility]
--- OUTSIDE RECORDS SUMMARY | 2025-05-12 22:19 | XMS_ITS | Encounter Summary ---
Author Organization [facility] Address [address] [facility] [address] [place] [address] Phone Care Team Providers Care Marketing Manager Name Role Phone Lynn Abad MD Primary Care Provider [phone] Nellie Morales CAPTURE MANAGER Primary Care Provider [phone] Unknown, Unknown Primary Care Provider Melissa Ordonez Primary Care Provider [phone] Ethan Ty Primary Care Provider [phone] Rosita Noble CAPTURE MANAGER Primary Care Provider Jane RabagoBS Unavailable Reason for Referral * MRI/CAT Scan - Closed Specialty Diagnoses / Procedures Referred By Contac t Referred To Contact Radiology Diagnoses Achilles tendinitis of left lower extremity Procedures MRI Ankle (Left) Preet Swain PA Phone: tel: fax: Referral ID Status Reason Start Date Expiration Date Visits Re quested Visits Authorized [id number] Closed 07/01/2019 06/30/2020 1 1 Encounter Details Date Type Department Care Team (Latest Contact Info) Description 07/01/2019 Transcribe Orders [facility] Department [address] [place] [address] Preet Swain PA [address] [facility] 100 [place] [address] Achilles tendinitis of left lower extremity (Primary [...] [facility] Pulmonary, Allergy and Critical Care Medicine [address] [place] [address] Dana Campo MD [address] [place] [address] documented as of this encounter Results * [...] as of this encounter Care Teams Marketing Manager Relationship Specialty Start Date End Date Lynn Abad MD [email or web address] PCP - General 05/09/17 09/05/21 Nellie Morales, CAPTURE MANAGER PCP - General Family Medicine 09/06/21 02/07/22 Unknown, Nilson, PCP - General 02/08/22 05/31/22 Melissa Castrejon PA [address] [place] [address] [email or web address]) PCP - General Unknown Provider Specialty 06/01/22 Ethan Ty PA [address] [place] [address] PCP - General Physician Steel Fabricator 04/13/24 01/07/25 Rosita Noble NP [address] [place] [address] PCP - General Nurse Practitioner 01/08/25 Jane Rabago MBBS [address] [place] [address] [email or web address] Primary Oncologist Medical Oncology 02/25/25 documented as of this encounter Additional Source Comments The information contained in this document represents components of the legal health record. It is not the complete legal health record.[facility]
--- OUTSIDE RECORDS SUMMARY | 2025-05-12 22:19 | XMS_ITS | Encounter Summary ---
Author Organization [facility] Address [address] [facility] [address] [place] [address] Phone Care Team Providers Care Drafting Instructor Name Role Phone Nellie Morales NP Primary Care Provider Unknown, Unknown Primary Care Provider Melissa Ordonez Primary Care Provider Ethan Ty Primary Care Provider Rosita Noble WHARF TENDER HEAD Primary Care Provider [phone] Jane Rabago Unavailable [phone] Encounter Details Date Type Department Care Team (Latest Contact Info) Description 10/18/2021 Transcribe Orders Virtual Department [address] [place] [address] Maame Meraz WHARF TENDER HEAD [address] [place] [address] Breast screening (Primary Dx) Social History Tobacco [...] Pulmonary, Allergy and Critical Care Medicine [address] [facility] [place] [address] Dana Campo MD [address] [facility] 2nd [place] [address] [email or web address] documented as of [...] documented as of this encounter Care Teams Drafting Instructor Relationship Specialty Start Date End Date Nellie Morales NP PCP - General Family Medicine 09/06/21 02/07/22 Unknown, Nilson, PCP - General 02/08/22 05/31/22 Melissa Castrejon PA [address] [place] [address] [email or web address] PCP - General Unknown Provider Specialty 06/01/22 Ethan Ty PA [address] [place] [address] PCP - General Physician Furnace Installer Helper 04/13/24 01/07/25 Rosita Noble NP [address] [place] [address] PCP - General Nurse Practitioner 01/08/25 Jane Rabago MBBS [address] [place] [address] [email or web address] Primary Oncologist Medical Oncology 02/25/25 documented as of this encounter Additional Source Comments The information contained in this document represents components of the legal health record. It is not the complete legal health record.[facility]
--- OUTSIDE RECORDS SUMMARY | 2025-05-12 22:19 | XMS_ITS | Encounter Summary ---
Author Organization [facility] Address [address] [facility] [address] [place] [address] Phone Care Team Providers Care Architectural Project Captain Name Role Phone Lynn Abad MD Primary Care Provider Nellie Morales TRACK VEHICLE REPAIRER Primary Care Provider [phone] Unknown, Unknown Primary Care Provider Melissa Ordonez Primary Care Provider Ethan Ty Primary Care Provider Rosita Noble TRACK VEHICLE REPAIRER Primary Care Provider Jane Rabago Unavailable Encounter Details Date Type Department Care Team (Latest Contact Info) Description 02/02/2019 Transcribe Orders Virtual Department [address] [place] [address] Betsy Maya PA-C [address] [place] [address] [email or web address] Dysphagia, pharyngoesophageal phase (Primary Dx) [...] [facility] Pulmonary, Allergy and Critical Care Medicine [address] [place] [address] [place] [address] Dana Campo MD [address] [place] [address] [place] [address] [email or web address] documented as of this encounter Results * [...] as of this encounter Care Teams Architectural Project Captain Relationship Specialty Start Date End Date Lynn Abad MD [email or web address] PCP - General 05/09/17 09/05/21 Nellie Morales TRACK VEHICLE REPAIRER PCP - General Family Medicine 09/06/21 02/07/22 Unknown, Nilson, PCP - General 02/08/22 05/31/22 Melissa Castrejon PA [address] [place] [address] [email or web address] PCP - General Unknown Provider Specialty 06/01/22 Ethan Ty PA [address] [place] [address] PCP - General Physician Wine Cellar Worker 04/13/24 01/07/25 Rosita Noble NP [address] [place] [address] PCP - General Nurse Practitioner 01/08/25 Jane Rabago MBBS [address] [place] [address] [email or web address] Primary Oncologist Medical Oncology 02/25/25 documented as of this encounter Additional Source Comments The information contained in this document represents components of the legal health record. It is not the complete legal health record.[facility]
--- OUTSIDE RECORDS SUMMARY | 2025-05-12 22:19 | XMS_ITS | Encounter Summary ---
Author Organization [facility] Address [address] [place] [address] Phone Care Team Providers Care [employer]ass Power Plant Superintendent Name Role Phone Rosita Noble NP Primary Care Provider [phone] Jane Rabago Unavailable [phone] Encounter Details Date Type Department Care Team (Late st Contact Info) Description 05/10/2025 Telephone [facility] [address] [place], [place] [id number] Rosita Noble NP [address] [place], [place] [id number] Social History Tobacco Use Types Packs/Day Years [...] as of this encounter Progress Notes * Lali Doty CNP - 05/10/2025 12:47 PM EDT I recommend that she take Miralax 1/2 capful daily and if loose stools continue then taking it as needed. * Wilman Mason - 05/10/2025 12:10 PM EDT Phone call received from Marilyn, who is the inspector advanced composite of the patients intermediate. Patient was prescribed polyethylene glycol at appointment on 04/22/25. Patient started the medication on 04/24 and has been taking it daily in the morning. Patient has reported loose stools since beginning the medication. Marilyn requested a call back to see if medication can be used as needed or if it should be discontinued. She can be called at [phone]. This is her direct phone number. Please contact and advise. documented in this encounter Plan of Treatment Upcoming Encounters Date Type Department Care Team ([facility] st Contact Info) Description 08/30/2025 8:20 AM EST Office Visit [facility], Allergy [facility] Critical Care Medicine [address] [place] [phone] Dana Campo MD [address] [place] [id number] [email or web address] documented as of this encounter Visit Diagnoses Not on filedocumented in this encounter Care Teams [employer] Power Plant Superintendent Relationship Specialty Start Date End Date Rosita Noble NP [address] [place] [id number] PCP - General Nurse Practitioner 01/08/25 Jane Rabago MBBS [address] [place] [phone] Primary Oncologist Medical Oncology 02/25/25 documented as of this encounter Additional Source Comments The information contained in this document represents components of the legal health record. It is not the complete legal health record.[facility]
--- OUTSIDE RECORDS SUMMARY | 2025-05-12 22:19 | XMS_ITS | Encounter Summary ---
Author Organization [facility] Address [address] [place] [address] Phone Care Team Providers Care Tower Equipment Installer Name Role Phone Nellie Morales [employer] Primary Care Provider Unknown, Unknown Primary Care Provider Melissa Ordonez Primary Care Provider [phone] Ethan Ty Primary Care Provider [phone] Rosita Noble [employer]ER Primary Care Provider Jane Rabago Unavailable [phone] Reason for Visit * Reason Comments Medication Refill Encounter Details Date Type Department Care Team (Late st Contact Info) Description 09/27/2021 Refill [facility] [address] [place] [id number] Nando Morris MD [address] [place] [address] [email or web address] Medication Refill Social History Tobacco Use Types [...] Care Medicine [address] [place] [address] [place] [address] Dana Campo MD [address] [facility] 2nd [place] [address] [email or web address] documented as of this [...] documented as of this encounter Care Teams Tower Equipment Installer Relationship Specialty Start Date End Date Nellie Morales NP PCP - General Family Medicine 09/06/21 02/07/22 Unknown, Nilson, PCP - General 02/08/22 05/31/22 Melissa Castrejon PA [address] [place] [phone] [email or web address] PCP - General Unknown Provider Specialty 06/01/22 Ethan Ty PA [address] [place] [id number] PCP - General Physician Signwriter 04/13/24 01/07/25 Rosita Noble NP [address] [place] [id number] PCP - General Nurse Practitioner 01/08/25 Jane Rabago MBBS [address] [place] [id number] [email or web address] Primary Oncologist Medical Oncology 02/25/25 documented as of this encounter Additional Source Comments The information contained in this document represents components of the legal health record. It is not the complete legal health record.[facility]
--- OUTSIDE RECORDS SUMMARY | 2025-05-12 22:19 | XMS_ITS | Clinical Summary ---
Author Organization [facility] Address [address] [facility] [facility] [address] [place] [address] Phone Care Team Providers Care Applied Mathematician Name Role Phone Rosita Noble NP Primary Care Provider [phone] Jane Rabago MBBLANK Unavailable [phone] Allergies Active Allergy Reactions Criticality Noted Date Comments Apple Nausea and/or Vomiting Low 02/05/2019 Amoxicillin-Pot Clavulanate Hives Medium 02/20/2019 Diphenhydramine Hcl Rash Low 05/18/2022 Towner And Derivatives GI Upset Low 12/06/2018 Other [...] 10 mg by mouth every morning. Active carboxymethylcellu lose (REFRESH PLUS) 0.5 % Dpet Place 1 drop into each eye 4 (four) times a day. Active pantoprazole (PROTONIX) 40 MG tablet Take 40 mg by mouth 2 (two) times a day. Active traZODone (DESYREL) 100 MG tablet Take 2 tablets (200 mg total) by mouth nightly at bedtime. 60 tablet 04/26/20 21 Active ondansetron (ZOFRAN-ODT) 4 MG disintegrating tablet Take 4 mg by mouth every 8 (eight) hours as needed for nausea. Active Medication-Free Text CPAP Active calcium carbonate 500 mg (200 mg elemental) chewable tablet Take 2 tablets (1,000 mg total) by mouth every 4 (four) hours as needed for heartburn. 09/05/19 23 Active DAILY-RIGO, WITH FOLIC ACID, 400 mcg tablet 09/03/19 23 Active docusate sodium (COLACE) 100 MG capsule Take 2 capsules (200 mg total) by mouth daily. 30 capsule 11/09/19 23 Active prazosin (MINIPRESS) 5 MG capsule Take 7 mg by mouth nightly at bedtime. Active FEROSUL 325 mg (65 mg iron) tablet 01/26/20 23 Active latanoprost (XALATAN) 0.005 % ophthalmic solution 03/26/20 23 Active gabapentin (NEURONTIN) 400 MG capsule Take 400 mg by mouth 3 (three) times a day. 11/16/19 23 Active cyclobenzaprine (FEXMID) 7.5 MG tablet Take 1 tablet (7.5 mg total) by mouth nightly at bedtime. 30 tablet 1 08/28/19 24 Active hydrOXYzine (VISTARIL) 100 MG capsule Take 1 capsule (100 mg total) by mouth nightly at bedtime. May also take 1 capsule (100 mg total) 3 (three) times a day as needed (restlessness ). 120 capsule 1 08/28/19 24 Active famotidine (PEPCID) 40 MG tablet Take 1 tablet (40 mg total) by mouth 2 (two) times a day. 60 tablet 11/22/19 24 Active dicyclomine (BENTYL) 10 MG capsule Take 10 mg by mouth 4 (four) times a day as needed. Active JANUVIA 100 mg tablet Take 100 mg by mouth daily. 03/10/20 24 Active albuterol 90 mcg/actuation inhaler Inhale 2 puffs into the lungs every 6 (six) hours as needed for wheezing. 180mcg 18 g 11 03/20/20 24 Active metFORMIN (GLUCOPHAGE-XR) 500 MG 24 hr tablet Take 1,000 mg by mouth daily with breakfast. Active fluticasone propionate (FLONASE) 50 mcg/actuation nasal spray 2 sprays by Nasal route 2 (two) times a day. 10/22/19 25 Active carBAMazepine (TEGRETOL XR) 200 MG 12 hr tablet Take 3 tablets (600 mg total) by mouth every morning AND 1 tablet (200 mg total) Every Afternoon AND 3 tablets (600 mg total) nightly at bedtime. 210 tablet 12/31/19 25 Active LORazepam (ATIVAN) 0.5 MG tablet Take 1 tablet (0.5 mg total) by mouth daily as needed (panic attack). 15 tablet 12/31/19 25 Active lidocaine 4 % Place 2 patches onto the skin every morning. Can only be on 12 hrs at a time. One patch for back and one for right breast. 30 patch 1 12/31/19 25 Active acetaminophen (TYLENOL) 325 mg tablet Take 2 tablets (650 mg total) by mouth every 4 (four) hours as needed for pain (specific location in comments). 02/04/20 25 Active ammonium lactate (AMLACTIN) 12 % cream Apply topically daily. 285 g 03/03/20 25 Active QUEtiapine (SEROQUEL) 300 MG tablet Take 1 tablet (300 mg total) by mouth nightly at bedtime. 30 tablet 03/02/20 25 Active QUEtiapine (SEROQUEL) 50 MG tablet Take 1 tablet (50 mg total) by mouth 3 (three) times a day as needed (anxiety). 90 tablet 03/02/20 25 Active lactobacillus rhamnosus, GG, (CULTURELLE) 10 billion cell capsule Take 1 capsule by mouth daily. 30 capsule 03/03/20 25 Active ipratropium-albute roL (DUONEB) 0.5-3 mg (2.5 mg base)/3 mL nebulizer solutionIndication s:Moderate persistent asthma without complication USE 3 ML VIA NEBULIZER TWICE DAILY NEEDED FOR WHEEZING 810 mL 3 03/11/20 25 Active budesonide-formote rol 160-4.5 mcg/actuation inhalerIndications :Moderate persistent asthma without complication Inhale 2 puffs into the lungs 2 (two) times a day. 10.2 g 11 04/15/20 25 Active umeclidinium (INCRUSE ELLIPTA) 62.5 mcg/actuation inhalationIndicati ons:Moderate persistent asthma without complication Inhale 62.5 mcg (1 puff total) into the lungs daily. 30 each 5 04/20/20 25 Active polyethylene glycol (MIRALAX) 17 gram/dose powderIndications: Chronic idiopathic constipation Take 17 g by mouth daily. 165 g 2 04/22/20 25 Active budesonide-formote rol 160-4.5 mcg/actuation inhalerIndications :Moderate persistent asthma without complication Inhale 2 puffs into the lungs 2 (two) times a day. 10.2 g 11 04/13/20 24 025 Discontin ued(Reord er) umeclidinium (INCRUSE ELLIPTA) 62.5 mcg/actuation inhalationIndicati ons:Moderate persistent asthma without complication Inhale 62.5 mcg (1 puff total) into the lungs daily. 30 each 5 07/08/20 24 025 Discontin ued(Reord er) umeclidinium (INCRUSE ELLIPTA) 62.5 mcg/actuation inhalationIndicati ons:Moderate persistent asthma without complication Inhale 62.5 mcg (1 puff total) into the lungs daily. 30 each 04/13/20 25 025 Discontin ued(Reord er) Active Problems Patient Care Coordination No te Formatting of this note migh t be different from the original. Height 157.7 cm, no shoes. BP Left Arm Only Problem Noted Date Diagnosed Date Constipation 04/22/2025 Assessment & Plan (04/22/2025 11:24 AM EDT): 54-year-old female with significant psychiatric issues presenting to follow-up for chronic constipation, excessive gas and bloating and GERD. She is having difficulty with bowel movements and this is likely contributing to her gas and bloating. She will continue with Colace 200 mg 2 tablets daily and we will add MiraLAX 17 g daily. She should increase her water intake. I also recommended for her to avoid all lactose. I gave her the low FODMAP diet to start using as a guide. Orders: polyethylene glycol (MIRALAX) 17 gram/dose powder; Take 17 g by mouth daily. Atypical lobular hyperplasia of right breast Suicidal ideation 02/17/2025 [place] 02/06/2025 GERD (gastroesophageal reflux disease) Assessment & Plan (04/22/2025 11:24 AM EDT): Reflux seems to be well-controlled on pantoprazole and famotidine she will continue with this. She should continue following GERD dietary and lifestyle modifications. She will follow-up in the office in 6 months sooner if symptoms worsen. 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 Has follow-up with Dr. Morris at [facility] this Saturday Moderate persistent asthma without complication [...] organization. Date Type Department Care Team Description 05/10/2025 Telephone [facility] [address] [place] [phone] Rosita Noble NP 04/22/2025 10:00 AM EDT Office Visit [facility] [address] [place] [address] Tierra Jay, RANDELL Doty, Lali Anderson, RANDELL Chronic idiopathic constipation (Primary Dx); Gastroesophageal reflux disease, unspecified whether esophagitis present 04/20/2025 Refill [facility] [address] [place] [address] Dana Campo MD Medication Refill (Requesting a refill the following medication for a refill: /umeclidinium (INCRUSE ELLIPTA) 62.5 mcg/actuation inhalation please send script to [facility], contact and advise, best call back number is [phone] //) 04/15/2025 Refill [facility] [address] [place] [phone] Kendra Gross LPN Medication Refill 04/15/2025 Telephone [facility] [address] [place] [address] Dana Campo MD Medication Management 04/13/2025 Refill [facility] [address] [place] [address] Natalie May Medication Refill 03/31/2025 2:30 PM EDT Telemedicine - audio only [facility] at [address] [address] Jane Rabago MBBS Atypical lobular hyperplasia of right breast (Primary Dx) 03/25/[address] [address] Ambreen Messer RN pt requests Tamoxifen Rx 03/23/2025 Telephone [facility] [address] [place] [address] Corina Brizuela 90 day supply form- Iprat/Alb 0.5 03/19/2025 11:00 AM EDT Office Visit [facility] at [address] [address] Jane Rabgao MBBS Atypical lobular hyperplasia of right breast (Primary Dx) 03/12/2025 Telephone [facility], Allergy and Critical Care Medicine [address] [place] [address] Corina Brizuela Ipratropium-Albute rol CoverMyMeds 03/11/2025 10:15 AM EDT Office Visit [facility] [address] [place] [address] Stacy Garcia MD S/P lumpectomy, right breast (Primary Dx) 03/10/2025 Refill [facility] [address] [place] [address] Aakash Willis MD, MS Medication Refill 03/10/[address] [address] Ambreen Messer RN Post-op Problem 03/10/2025 Telephone [facility] [address] [place] [address] Ambreen Messer, RN Follow-up 03/10/2025 Refill [facility] [address] [facility], 6th Floor, [address] [place] [address] Ritesh Allen MD Medication Refill 03/09/2025 3:42 PM EDT - 03/09/2025 8:26 PM EDT Emergency [facility] Emergency [address] [place] [phone] Discharge Disposition: Home or Self Care 03/08/2025 9:07 PM EDT - 03/09/2025 5:05 AM EDT Emergency [facility] Emergency [address] [place] [address] Discharge Disposition: Home or Self Care 03/08/2025 Procedure Pass [facility], Ct Scan [address] [address] 03/04/[address] [address] Ambreen Messer RN 03/03/2025 12:36 PM EDT - 03/03/2025 11:59 PM EDT Hospital Encounter [facility], [address] [address] Ethan Mcdermott CNP Discharge Disposition: Home or Self Care 03/03/2025 10:45 AM EDT Office Visit [facility] [address] [place] [address] [place] [address] Ethan Mcdermott CNP Post-operative state (Primary Dx); S/P lumpectomy, right breast 03/03/2025 Ancillary Orders [facility] General Surgical [address] [place] [address] Ethan Mcdermott CNP Post-operative state (Primary Dx); S/P lumpectomy, right breast 03/02/2025 Telephone [facility] [address] [address] Ambreen Messer, RON Post-op 03/01/2025 Telephone [facility] [address] [place] [address] Ambreen Messer, RON antibiotic question 03/01/2025 Telephone [facility] [address] [place] [address] [place] [address] Stacy Garcia MD 02/26/2025 Documentation [facility] [address] [address] Ambreen Messer, RON 02/24/2025 Telephone [facility] [address] [place] [address] Ambreen Messer, RON 02/24/2025 Telephone [facility] [address] [place] [address] [place] [address] Ambreen Messer, RON 02/24/2025 Telephone [facility] [address] [place] [address] [place] [address] Stacy Garcia MD Post-op Problem 02/16/[address] [address] Ambreen Messer, RON Appointment 02/12/2025 Telephone [facility] at [address] [address] Jane Rabago MBBS NEW MEDICAL ONCOLOGY APT 02/10/2025 Orders Only [address] [address] Stacy Garcia MD Atypical lobular hyperplasia (ALH) of breast (Primary Dx) 02/10/2025 Refill [facility] Neurology [address] [place] [address], 6th Floor, [address] [place] [address] Ritesh Allen MD Medication Refill from Last 3 Months Immunizations Immunization Administration [...] Sign Reading Time Taken Comments Blood Pressure 108/70 04/22/2025 10:38 AM EDT Pulse 83 04/22/2025 10:38 AM EDT Temperature 36.8 C (98.2 F) 03/19/2025 11:10 AM EDT Respiratory Rate 21 03/09/2025 8:15 PM EDT Oxygen Saturation 97% 03/19/2025 11:13 AM EDT Inhaled Oxygen Concentration - - Weight 108.9 kg (240 lb) 04/22/2025 10:38 AM EDT Height 157.5 cm (5' 2 ) 04/22/2025 10:38 AM EDT Body Mass Index 43.9 04/22/2025 10:38 AM EDT Plan of Treatment Upcoming Encounters Date Type Department Care Team ([facility] st Contact Info) Description 08/30/2025 8:20 AM EST Office Visit [facility] [address] [place] [address] Dana Campo MD [address] [facility] 2nd [place] [address] Health Maintenance Due Date Last Done Comments DEPRESSION SCREENING 1983 HEPATITIS C SCREENING 1989 COLOGUARD 2016 FOBT 2016 SIGMOIDOSCOPY 2016 VIRTUAL COLONOSCOPY 2016 PAP SMEAR 06/20/2020 06/20/2017, 07/08/1996 RSV VACCINE (1 - Risk 50-74 years 1-dose series) 2021 PNEUMOCOCCAL VACCINES (50+ years) (2 of 2 - PCV) 06/29/2021 06/29/2020, 12/19/2018 FIT TEST 09/20/2022 09/20/2021 DIABETIC EYE EXAM 07/22/2024 URINE MICROALBUMIN/CREATININE RATIO 07/22/2024 INFLUENZA VACCINE (#1) 2025 , 04/15/2023, 05/02/2022, Additional history exists COVID-19 VACCINE ( season) 2025 04/15/2024, 04/23/2023, 04/23/2023, Additional history exists HEMOGLOBIN A1C 06/14/2025 12/12/2024, 09/20, 07/22/2024, Additional history exists BLOOD PRESSURE 10/21/2025 04/22/2025 LIPID PANEL 12/12/2025 12/12/2024, 09/20, 08/05/2024, Additional history exists CARBAMAZEPINE (TEGRETOL) LEVEL 02/19/2026 02/19/2025, 01/18/2025, 12/27/2024, Additional history exists CREATININE LEVEL 03/09/2026 03/09/2025, , 02/17/2025, Additional history exists MAMMOGRAM 07/10/2026 07/10/2024, 07/0 02/2022, 12/19/2016, Additional history exists Adult Td,Tdap Booster 07/30/2031 07/30/2021, 014 COLONOSCOPY 06/01/2032 06/01/2022 COLORECTAL CANCER SCREENING 06/01/2032 HIV ONE-TIME SCREENING (18-65 YEARS) Completed 05/18/2022, 02/28/1999 ZOSTER VACCINES Completed 05/13/2023, 03/30/2022 SMOKING STATUS SCREENING (Once After 26 Yrs) [...] this topic Medical Devices Implanted Type Area Folding Machine Tender Device Identifier Shelf Expiration Date Model / Serial / Lot Marker Ultraclip 17ga 10cm Tissue Dual Trigger Breast Ti Heart Shape Bx/[id number] - [id number] Implanted:Qty: 1 on 09/28/2024 by Luke Rogers MD at [facility] Right: Breast [employer] [id number] / / Procedures Procedure Name Priority Date/Time [...] SCREEN, URINE STAT 02/17/2025 12:06 PM EDT HEMOGLOBIN A1C Routine 12/12/2024 7:04 AM [...] 2:41 PM EDT) Only the most recent of4 resultswithin the time period is included. Pathologist [facility] Troponin-T, HS Gen5 <6 0 - 9 ng/L [facility] Blood 03/09/2025 2:41 PM EDT 03/09/2025 2:51 PM EDT us Mati Benz MD LAB BLOOD ORDERABLES Final Resu lt [facility] [address] [place] [address] * ECG 12-LEAD (03/09/2025 1:42 PM EDT) Only the most recent of2 resultswithin the time period is included. Ventricular Rate EKG/MIN 77 BPM [facility] Atrial Rate 77 BPM [facility] VT Interval 202 ms [facility] QRS Duration 92 ms [facility] QT Interval 390 ms [facility] QTC Interval 441 ms [facility] P [place] 35 degrees [facility] R Wave [place] -25 degrees [facility] T Wave [place] 24 degrees [facility] 03/09/2025 1:42 PM EDT 03/11/2025 11:45 AM EDT Narrative [facility] - 03/11/2025 11:45 AM EDT Normal sinus rhythm Anterior infarct (cited on or before 12-Oct-2024) Abnormal ECG When compared with ECG of 08-Mar-2025 21:02, No significant change was found Confirmed by Marvin Rodriguez ([id number]) on 03/11/2025 11:45:29 AM us Mati Benz MD ECG ORDERABLES Final Result [facility] * (ABNORMAL) CBC and differential (03/09/2025 1:42 PM EDT) Only the most recent of3 resultswithin the time period is included. WBC 10.18 4.00 - 11.00 K/uL [facility] RBC 4.55 4.00 - 5.20 M/uL [facility] HGB 12.6 12.0 - 16.0 g/dL [facility] HCT 39.7 36.0 - 46.0 % [facility] PLT 300 150 - 450 K/uL [facility] MCV 87.3 80.0 - 100.0 fL [facility] MCH 27.7 27.0 - 31.0 pg [facility] MCHC 31.7(L) 32.0 - 36.0 g/dL [facility] RDW 13.7 11.5 - 14.5 % [facility] MPV 8.9 8.4 - 12.0 fL [facility] NRBC 0.00 0.00 /100 WBCs [facility] ABSOLUTE NRBC 0.00 0.00 K/uL [facility] DIFF METHOD Auto [facility] NEUTS 69.2 48.0 - 76.0 % [facility] LYMPHS 20.6 18.0 - 41.0 % [facility] MONOS 6.3 4.0 - 11.0 % [facility] EOS 2.1 0.0 - 5.0 % [facility] BASOS 0.4 0.0 - 1.5 % [facility] Granulocytes, immature (%) 1.4(H) 0.0 - 0.9 % [facility] ABSOLUTE NEUTS 7.05 1.92 - 7.60 K/uL [facility] ABSOLUTE LYMPHS 2.10 0.72 - 4.10 K/uL [facility] ABSOLUTE MONOS 0.64 0.16 - 1.10 K/uL [facility] ABSOLUTE EOS 0.21 0.00 - 0.50 K/uL [facility] ABSOLUTE BASOS 0.04 0.00 - 0.15 K/uL [facility] Granulocytes, immature 0.14(H) 0.00 - 0.09 K/uL [facility] Blood 03/09/2025 1:42 PM EDT 03/09/2025 1:47 PM EDT us Mati Benz MD LAB BLOOD ORDERABLES Final Resu lt Performing Organization Address City/[facility]/ZIP Co de Phone Number [address] [address] * NT-proBNP (03/09/2025 1:42 PM EDT) NT-PROBNP <36 0 - 125 pg/mL [facility] 03/09/2025 1:42 PM EDT 03/09/2025 1:47 PM EDT us Mati Benz MD LAB BLOOD ORDERABLES Final Resu lt Performing Organization Address City/[facility]/ZIP Co de Phone Number [address] [address] * Basic metabolic panel (03/09/2025 1:42 PM EDT) Only the most recent of3 resultswithin the time period is included. SODIUM 138 133 - 146 mmol/L [facility] CHLORIDE 102 96 - 108 mmol/L [facility] POTASSIUM 3.6 3.3 - 5.1 mmol/L [facility] CO2 26 21 - 35 mmol/L [facility] BUN 12 6 - 19 mg/dL [facility] CREATININE 0.60 0.5 - 1.5 mg/dL [facility] GLUCOSE 91 70 - 99 mg/dL [facility] CALCIUM 8.8 8.4 - 10.3 mg/dL [facility] EGFR 107 >59 mL/min/1.7 3m2 [facility] Comment:Estimated glomerular filtration rate calculated using the CKD-EPI refit equation. ANION GAP 14 10 - 20 mmol/L [facility] Blood 03/09/2025 1:42 PM EDT 03/09/2025 1:47 PM EDT us Mati Benz MD LAB BLOOD ORDERABLES Final Resu lt [facility] [address] [place] [address] * CT CHEST PULMONARY ANGIOGRAM (ACUTE) (03/08/2025 11:54 PM EDT) Anatomical Region Laterality Modality Chest, Thoracic Vasculature Comp uted Tomography 03/09/2025 2:30 AM EDT Impressions 03/09/2025 3:03 AM EDT [...] provided indication for this examination in Epic: * Chest pain, nonspecific; * Dyspnea [...] provided indication for this examination in Epic: *Chest pain, nonspecific; * Dyspnea on exertion [...] originally createdby Meg Toribio. Preet Ng PA-C IMG CT CHEST Final Result * (ABNORMAL) D-dimer (03/08/2025 9:42 PM EDT) D-DIMER 539(H) <500 ng/mL FEU [facility] Comment:In patients with low to moderate pre-test probability scores for VTE (PE or DVT), a D-Dimer cut-off less than 500 ng/mL (FEU) has a negative predictive value (NPV) of 97 to 100%. Blood 03/08/2025 9:42 PM EDT 03/08/2025 10:01 PM EDT Preet Ng PA-C LAB BLOOD ORDERABLES Final R esult Performing Organization Address City/State/[facility] Co de Phone Number [address] [address] * Magnesium (03/08/2025 9:42 PM EDT) MAGNESIUM 2.3 1.6 - 2.6 mg/dL [facility] 03/08/2025 9:42 PM EDT 03/08/2025 10:01 PM EDT Mati Benz MD LAB BLOOD ORDERABLES Final Resu lt Performing Organization Address City/[facility]/ZIP Co de Phone Number [facility] [address] [place] [address] * US Chest Wall (03/03/2025 1:52 PM EDT) Anatomical Region Laterality Modality Chest Ultrasound 03/03/2025 2:04 PM EDT Impressions 03/03/2025 2:09 PM EDT Lumpectomy site evident measuring 4.2 x 4.7 x 5.4 cm. Findings may represent hematoma and/or complicated seroma. No discrete drainable collection. Narrative 03/03/2025 2:09 PM EDT US CHEST WALL Referring clinician's provided indication for this examination in [facility]: Infection; New skin dimpling/indentation; post lumpectomy [...] clinician's provided indication for this examination in [facility]:Infection; New skin dimpling/indentation; post lumpectomy with [...] complicated seroma. No discrete drainablecollection. Ethan Mcdermott [facility] IM US CHEST Final Result * (ABNORMAL) POCT Glucose (03/02/2025 6:06 AM EDT) Only the most recent of16 resultswithin the time period is included. Glucose, POCT 116(H) 70 - 100 mg/dL [facility] 03/02/2025 6:06 AM EDT 03/02/2025 8:05 AM EDT Kelly Mora MD POINT OF CARE TEST ORDERABLES Final Result Performing Organization Address City/State/[facility] Co de Phone Number [address] [address] * XR RIBS 3 OR MORE VIEWS [...] provided indication for this examination in Epic: Pain COMPARISON: XR CHEST PA AND LATERAL [...] clinician's provided indication for this examination in Epic:Pain COMPARISON: XR CHEST PA AND LATERAL 2 [...] Carbamazepine (Tegretol) level (02/19/2025 7:06 AM EDT) CARBAMAZEPINE 8.7 8.0 - 12.0 ug/mL [facility] Blood 02/19/2025 7:06 AM EDT 02/19/2025 7:22 AM EDT [facility] Flory baldo Result [facility] [address] [place] [address] * Ethanol, blood (02/17/2025 12:38 PM EDT) ETHANOL <10 <10 mg/dL [facility] Blood 02/17/2025 12:3 8 PM EDT 02/17/2025 12:42 PM EDT us Joel Mars MD LAB BLOOD ORDERABLES Final Resu lt Performing Organization Address [facility]/ZIP Co de Phone Number [address] [address] * HCG, serum qualitative (02/17/2025 12:38 PM EDT) HCG, QUALITATIVE Negative Negative IU/L [facility] Blood 02/17/2025 12:3 8 PM EDT 02/17/2025 12:42 PM EDT us Joel Mars MD LAB BLOOD ORDERABLES Final Resu lt Performing Organization Address [facility] Co de Phone Number [address] [address] * LFTs (hepatic panel) (02/17/2025 12:38 PM EDT) ALKALINE PHOSPHATASE 102 39 - 117 U/L [facility] TOTAL BILIRUBIN <0.2 0.0 - 1.2 mg/dL [facility] DIRECT BILIRUBIN <0.1 0.0 - 0.2 mg/dL [facility] Bilirubin (Indirect) NOT CALCULATED 0 - 1.5 mg/dL [facility] AST 17 0 - 37 U/L [facility] ALT 16 0 - 40 U/L [facility] TOTAL PROTEIN 6.9 6.5 - 8.0 g/dL [facility] ALBUMIN 3.9 3.9 - 4.8 g/dL [facility] GLOBULIN 3.0 1 - 4.8 g/dL [facility] A/G Ratio 1.30 1.00 - 4.80 RATIO [facility] Blood 02/17/2025 12:3 8 PM EDT 02/17/2025 12:42 PM EDT us Joel Mars MD LAB BLOOD ORDERABLES Final Resu lt Performing Organization Address City/[facility]/ZIP Co de Phone Number [address] [address] * (ABNORMAL) Acetaminophen level (02/17/2025 12:38 PM EDT) ACETAMINOPHEN <5.0(L) 15.0 - 30.0 ug/mL [facility] Blood 02/17/2025 12:3 8 PM EDT 02/17/2025 12:42 PM EDT us Joel Mars MD LAB BLOOD ORDERABLES Final Resu lt Performing Organization Address [facility] Co de Phone Number [address] [address] * (ABNORMAL) Salicylates (02/17/2025 12:38 PM EDT) SALICYLATES <0.3(L) 2.8 - 19.9 mg/dL [facility] Blood 02/17/2025 12:3 8 PM EDT 02/17/2025 12:42 PM EDT us Joel Mars MD LAB BLOOD ORDERABLES Final Resu lt Performing Organization Address [facility] Co de Phone Number [address] [address] * (ABNORMAL) Urinalysis w/reflex Urine Culture (02/17/2025 12:06 PM EDT) COLOR Yellow Yellow [facility] CLARITY Clear [facility] GLUCOSE Negative Negative [facility] BILI Negative Negative [facility] KETONES Negative Negative [facility] SPECIFIC GRAVITY >1.030 1.005 - 1.030 [facility] BLOOD Negative Negative [facility] PH 5.5 5.0 - 8.0 [facility] Protein-UA Trace(A) Negative [facility] NITRITE Negative Negative [facility] Leukocyte esterase, ur Negative Negative [facility] Urine (Urine) 02/17/2025 12: 06 PM EDT 02/17/2025 1:30 PM EDT us Joel Mars MD URINE ORDERABLES Final Result Performing Organization Address [facility] Co de Phone Number [address] [address] * (ABNORMAL) Toxicology screen, urine (02/17/2025 12:06 PM EDT) URINE CANNABINOIDS NONE DETECTED NONE DETECTED [facility] Comment:Cutoff: 50 ng/mL URINE COCAINE METAB NONE DETECTED NONE DETECTED [facility] Comment:Cutoff: 300 ng/mL URINE AMPHETAMINES NONE DETECTED NONE DETECTED [facility] Comment:Cutoff: 1000 ng/mL URINE METHADONE NONE DETECTED NONE DETECTED [facility] Comment:Cutoff: 300 ng/mL URINE OPIATES NONE DETECTED NONE DETECTED [facility] Comment:Cutoff: 300 ng/mL URINE PHENCYCLIDINE NONE DETECTED NONE DETECTED [facility] Comment:Cutoff: 25 ng/mL URINE OXYCODONE NONE DETECTED NONE DETECTED [facility] Comment:Cutoff: 300 ng/mL URINE BARBITURATES NONE DETECTED NONE DETECTED [facility] Comment:Cutoff: 200 ng/mL URINE BENZODIAZEPINE Positive(A) NONE DETECTED [facility] Comment:Cutoff: 200 ng/mL URINE BUPRENORPHINE NONE DETECTED NONE DETECTED [facility] Comment:Cutoff: 5 ng/mL Fentanyl, urine NONE DETECTED NONE DETECTED [facility] Comment: Cutoff: 5 ng/mL INTERPRETATION FOR TOXICOLOGY PANEL: These results are unconfirmed and should be used for Medical Treatment purposes only. Urine (Urine) 02/17/2025 12: 06 PM EDT 02/17/2025 12:10 PM EDT us Joel Mars MD URINE ORDERABLES Final Result Performing Organization Address [facility] Co de Phone Number [address] [address] * Hemoglobin A1c (12/12/2024 7:04 AM EDT) HEMOGLOBIN A1C 5.6 4.3 - 5.8 % [facility] Blood 12/12/2024 7:04 AM EDT 12/12/2024 7:15 AM EDT us Christa Nino STUDIO ASSISTANT LAB BLOOD ORDERABLES Final Result Performing Organization Address [facility] Co de Phone Number [address] [address] * (ABNORMAL) Lipid panel (12/12/2024 7:04 AM EDT) HDL 34 mg/dL [facility] Comment: Interpretation <40 mg/dL: Low HDL cholesterol (major risk factor for CHD) Greater than or equal to 60 mg/dL: High HDL cholesterol ( negative risk factor for CHD) HDL - cholesterol is affected by a number of factors, e.g. smoking, excerise, hormones, sex and age. CHOLESTEROL 225 0 - 240 mg/dL [facility] TRIGLYCERIDES 279(H) 30 - 160 mg/dL [facility] LDL 135(H) 50 - 129 mg/dL [facility] Comment: LDL levels in terms of risk for coronary heart disease: <100 mg/dL: Optimal 100-129 mg/dL: Near or above optimal 130-159 mg/dL: Borderline high 160-189 mg/dL: High >190 mg/dL: Very High CARDIAC RISK RATIO 6.6(H) 3.3 - 4.4 C [facility] Blood 12/12/2024 7:04 AM EDT 12/12/2024 7:15 AM EDT Christa Nino [facility] LAB BLOOD ORDERABLES Final Result Performing Organization Address [facility] Co de Phone Number [address] [address] * Mammogram Outside (No Interpretation) (07/10/2024 12:00 AM EST) Narrative Antonieta Pierce - 08/27/2024 9:03 AM EST This study is for PACS storage only and not for interpretation. Procedure Note Antonieta Pierce - 08/27/2024 This study is for PACS storage only and not for interpretation. us Unknown Unknown MD IMG OUTSIDE IMAGING W/OUT INT ERPRETATION Final Result * ENDOSCOPY, COLON (06/01/2022 11:48 AM EST) Narrative Transcriptions Dipak Andrews MD - 06/01/2022 11:48 AM EST Patient Name: Arpita Merchant Yogi Attending MD:: DIPAK ANDREWS MD Procedure Date: 06/01/2022 11:48AM Date of : 1970 Age: 52 Admit Type: Outpatient Gender: Female Room: [place] [address] Referring MD: Melissa Castrejon Exam Type: Colonoscopy [...] monitored continuously. The Olympus adult variable colonoscope [id number] #[id number] was introduced through the anus and [...] 11:48 AM Procedure Code(s): --- Professional --- 96912, Colonoscopy, flexible; with removal of tumor(s), polyp(s), or other lesion(s) by snare technique --- Technical --- 33169, Colonoscopy, flexible; with removal of tumor(s), polyp(s), or other lesion(s) by snare technique Diagnosis Code(s): --- Professional --- Z86.010, Personal history of colonic polyps K63.5, Polyp of colon --- Technical --- Z86.010, Personal history of colonic polyps K63.5, Polyp of colon CPT copyright 2020 [employer]. All rights reserved. The codes documented in this report are preliminary and upon clinical coder reviewmay be revised to meet current compliance requirements. Procedure Date: 06/01/2022 11:48:[address] [place] [id number] Melissa MAYS GI PROCEDURE ORDERABLES Flory bland Result * Fecal immunochemical test x1 (FIT) (09/20/2021 7:30 PM EST) Immuno Fecal Occult Negative Negative [facility] Stool (Stool) 09/20/2021 7:3 0 PM EST 09/20/2021 7:51 PM EST Samantha Burns PA-C BODY FLUIDS AND STOOLS MELE FERREIRA Final Result Performing Organization Address City/State/[facility] Co de Phone Number [address] [address] * Pap Smear (06/20/2017 12:00 AM EST) 06/20/2017 06/21/2017 9:1 5 AM EST Narrative SEE NARRATIVE - 06/27/2017 3:46 PM EST [address] [address] Newspaper Managing Editor: Cassie Renee MD TOW TRUCK DISPATCHER Cytology Report FINAL DIAGNOSIS A. PAP SMEAR (SUREPATH) CE: SPECIMEN ADEQUACY: Satisfactory for evaluation; transformation zone absent/insufficient. INTERPRETATION: NEGATIVE FOR INTRAEPITHELIAL LESION OR MALIGNANCY. Electronically Signed Out By: CHACE Sy(ASCP) The Pap test is a screening test [...] advised. This HPV test was performed at [facility], [address] [place] [address]. The accuracy and precision of this test has been verified in the Cytopathology laboratory of the [facility]. This test has not been cleared or approved by the U.S. Food and Drug Administration (FDA). CLINICAL HISTORY Date of Last Menstrual Period: 06/02/17 Other Clinical Conditions: Screening Pap SPECIMEN SOURCE A: PAP SMEAR (SUREPATH) CE Patient Name: ARPITA MORA : 1970 (Age: 47) Sex: F Institution: [facility] Location: [facility] Date of Collection: 06/20/2017 Date of Reported: 06/27/2017 15:46 Results to: Lynn Stubbs MD us Lynn Stubbs MD CYTOLOGY ORDERABLES Final Re sult SEE NARRATIVE from Last 3 Months or Most Recently Relevant to Health Maintenance Insurance MEDICARE PART A & B [facility] MEDICARE PART A & B [facility] MEDICARE PART A & B MEDICARE PART A & B MEDICARE PART A & B MEDICARE PART A & B [place] B MEDICARE PART A [place] [id number] [place] [address] [place] [address] [place] [address] [facility] [place] [address] [place] [address] Advance Directives For more information, please contact: [phone] (9AM - 5PM [facility], Saturday-Saturday) Documents on File Type Date Recorded 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 It is not the complete legal health record.[facility]
--- OUTSIDE RECORDS SUMMARY | 2025-05-12 22:19 | XMS_ITS | Encounter Summary ---
Author Organization [facility] Address [address] [place] [address] Phone Care Team Providers Care Direct Entry Midwife Name Role Phone Lynn Abad MD Primary Care Provider [phone] Nellie Morales THERMOSTAT MAKER Primary Care Provider [phone] Unknown, Unknown Primary Care Provider Melissa Ordonez Primary Care Provider [phone] Ethan Ty Primary Care Provider [phone] Rosita Noble THERMOSTAT MAKER Primary Care Provider [phone] Jane Rabago MBBS Unavailable Encounter Details Date Type Department Care Team (Latest Contact Info) Description 03/19/2019 Transcribe Orders Virtual Department [address] [place] [address] Lynn Abad MD [address] [place] [phone] [email or web address] Dyspnea, unspecified type (Primary Dx) [...] Description 08/30/2025 8:20 AM EST Office Visit [facility] Pulmonary, Allergy and Critical Care Medicine [address] [place] [phone] Dana Campo MD [address] [place] [phone] [email or web address] documented as of this encounter Results * Pulmonary Function Test Reason for Exam: Dyspnea/Shortness of Breath; Type of PFT Test: Spirometry with bronchodilator, Lung Volumes, DLCO; Performing Location: [facility] (06/15/2019 2:22 PM EST) FEV1 1.69 liters [...] documented as of this encounter Care Teams Direct Entry Midwife Relationship Specialty Start Date End Date Lynn Abad MD PCP - General 05/09/17 09/05/21 Nellie Morales THERMOSTAT MAKER PCP - General Family Medicine 09/06/21 02/07/22 Unknown, Nilson, PCP - General 02/08/22 05/31/22 Melissa Castrejon PA [address] [place] [id number] [email or web address] PCP - General Unknown Provider Specialty 06/01/22 Ethan Ty PA [address] [place] [address] PCP - General Physician Surgical Elastic Knitter Hand Frame 04/13/24 01/07/25 Rosita Noble NP [address] [place] [address] PCP - General Nurse Practitioner 01/08/25 Jane Rabago MBBS [address] [place] [id number] [email or web address] Primary Oncologist Medical Oncology 02/25/25 documented as of this encounter Additional Source Comments The information contained in this document represents components of the legal health record. It is not the complete legal health record.[facility]
== END 2025-05-12 18:09 | disposition home or self-care (01) ==
LOC: HO.MRI 18:08
PROVIDERS: Visit Provider Physician Assistant
DX: M25.572 Pain in left ankle and joints of left foot (principal)
CPT/HCPCS: 73721

== ENCOUNTER → 2025-05-12 18:14 | Outpatient (BNV) | payer MEDICARE, MEDICAID, SELFPAY | PROVIDERS: Visit Provider Radiology Diagnostic Ultrasound | DX: S93.432A Sprain of tibiofibular ligament of left ankle, initial encounter (principal); M19.072 Primary osteoarthritis, left ankle and foot; M65.872 Other synovitis and tenosynovitis, left ankle and foot | CPT/HCPCS: 73721 ==